=== PATIENT | female | born 1935 | race Caucasian/White ===

== ENCOUNTER 2016-08-11 14:43 | Emergency (ER) | payer OTHER ==
[2016-08-11] MEDS ORDERED: LABETALOL HCL INJ 20 MG/4 ML DISP.SYRIN IV ONE ×2 (15:06→15:11)
[2016-08-11 15:15] LABS: ABSOLUTE BASOPHILS # (AUTO) 0.1 10^3/uL (0.0-0.2); ABSOLUTE EOSINOPHILS # (AUTO) 0.1 10^3/uL (0.0-0.6); ABSOLUTE LYMPHOCYTES (AUTO) 1.8 10^3/uL (0.5-4.7); ABSOLUTE MONOCYTES (AUTO) 0.6 10^3/uL (0.1-1.4); ABSOLUTE NEUT (AUTO) 6.1 10^3/uL (1.7-8.2); BASOPHILS % (AUTO) 0.9 % (0-2); EOSINOPHILS % (AUTO) 1.4 % (0-6); HEMATOCRIT 44.4 % (36.0-47.0); HEMOGLOBIN 14.7 g/dL (12.0-15.5); HGB HCT DIFFERENCE -0.3; LYMPHOCYTES % (AUTO) 20.7 % (13-45); MEAN CORPUSCULAR HEMOGLOBIN 28.7 pg (27.0-33.4); MEAN CORPUSCULAR HGB CONC 33.1 g/dL (32.0-36.0); MEAN CORPUSCULAR VOLUME 87 fl (80-97); MONOCYTES % (AUTO) 7.1 % (3-13); RED BLOOD COUNT 5.11 10^6/uL (3.72-5.28); RED CELL DISTRIBUTION WIDTH 14.6 % (11.5-14.0); SEGMENTED NEUTROPHILS % (AUTO) 69.9 % (42-78); WHITE BLOOD COUNT 8.7 10^3/uL (4.0-10.5)
[2016-08-11] MEDS ORDERED: LABETALOL HCL INJ 200 MG/40 ML VIAL IV PRN (15:20)
[2016-08-11 15:21] LABS: PROTHROMBIN TIME 12.1 SEC (11.4-15.4)
[2016-08-11 15:22] LABS: PARTIAL THROMBOPLASTIN TIME 30.9 SEC (23.5-35.8)
[2016-08-11 15:36] LABS: ALANINE AMINOTRANSFERASE 25 U/L (9-52); ALBUMIN 4.9 g/dL (3.5-5.0); ALKALINE PHOSPHATASE 87 U/L (38-126); ANION GAP 12 (5-19); ASPARTATE AMINO TRANSFERASE 25 U/L (14-36); BILIRUBIN,TOTAL 0.6 mg/dL (0.2-1.3); BLOOD UREA NITROGEN 28 mg/dL (7-20); CALCIUM 10.2 mg/dL (8.4-10.2); CARBON DIOXIDE 30 mmol/L (22-30); CHLORIDE 102 mmol/L (98-107); CREATINE KINASE 59 U/L (30-135); CREATININE RESULT 0.96 mg/dL (0.52-1.25); GLUCOSE 106 mg/dL (75-110); POTASSIUM 4.4 mmol/L (3.6-5.0); SODIUM 144.1 mmol/L (137-145); TOTAL PROTEIN 7.5 g/dL (6.3-8.2)
[2016-08-11] MEDS ORDERED: LABETALOL HCL INJ 200 MG/40 ML VIAL IV ONE (15:37)
[2016-08-11 15:48] LABS: CREATINE KINASE MB 1.76 ng/mL (<4.55); TROPONIN I 0.015 ng/mL
--- NOTE | 2016-08-11 15:50 | ER Document Report ---
ED General - General Stated Complaint: WEAKNESS Time seen by provider: 15:45 Mode of Arrival: Medic Information source: Emergency Med Personnel Notes: This is an 80-year-old female with a past history of hypertension, COPD, coronary artery disease (2 stents in the past). The patient has a history of a recent workup for Parkinson's but is not on any medicines currently for that. The patient lives alone, walks without difficulty and still drives. Family states that his she is normally alert and oriented 3 and very functional. The patient was brought in for an acute stroke. The patient's aunt reportedly spoke to the patient at noon and reports that the conversation was normal and the plan to go out. When the aunt head showed up at the patient's house, she noticed that the patient was not able to talk and look like she had a facial droop. They did call the ambulance at that time and EMS found the patient to be hypertensive (221/112), aphasic. Medicines: Misalamine 1.2 g with meals Vitamin B, vitamin K Low-dose aspirin Metoprolol 50 mg twice a day Valsartan 160 mg 3 times a day Amlodipine 5 mg daily Crestor gabapentin 300 mg twice a day Calcitrol 0.25 3 times a day Citalopram Cyclosporine eyedrops TRAVEL OUTSIDE OF THE [place] IN LAST 30 DAYS: No - HPI Onset: Just prior to arrival Onset/Duration: Sudden Quality of pain: No pain Severity: None Pain Level: Denies Associated symptoms: denies: Chills, Fever Exacerbated by: Denies Relieved by: Denies Similar symptoms previously: No Recently seen / treated by doctor: Yes - Related Data Allergies/Adverse Reactions: prednisone [Prednisone] Allergy (Unknown, Verified 01/15/16 20:44) cephalexin [Cephalexin] Allergy (Verified 01/15/16 20:44) Cephalosporins Allergy (Verified 02/09/16 14:47) ciprofloxacin [From Cipro] Allergy (Verified 01/15/16 20:44) cortisone [Cortisone] Allergy (Verified 01/15/16 20:44) Penicillins Allergy (Verified 02/09/16 14:47) phenazopyridine [Phenazopyridine] Allergy (Verified 01/15/16 20:44) sulfamethoxazole [From Bactrim] Allergy (Verified 01/15/16 20:44) tramadol HCl [From Ultram] Allergy (Verified 01/15/16 20:44) trimethoprim [From Bactrim] Allergy (Verified 01/15/16 20:44) Past Medical History - General Information source: Patient - Social History Smoking Status: Smoker,Current Status Unk Chew tobacco use (# tins/day): No Smoking Education Provided: No Frequency of alcohol use: None Drug Abuse: None Lives with: Alone Family History: Reviewed & Not Pertinent, DM, Hypertension Patient has suicidal ideation: No Patient has homicidal ideation: No - Past Medical History Cardiac Medical History: Reports: Hx Heart Attack - 10/2014, Hx Hypercholesterolemia, Hx Hypertension Pulmonary Medical History: Reports: Hx Asthma, Hx COPD Malignancy Medical History: Reports: Hx Skin Cancer GI Medical History: Reports: Hx Crohn's Disease, Hx Gastroesophageal Reflux Disease, Hx Hiatal Hernia, Hx Ulcer, Hx Ulcerative Colitis Musculoskeltal Medical History: Reports Hx Arthritis Psychiatric Medical History: Reports: Hx Depression Past Surgical History: Reports: Hx Abdominal Surgery - umbilical hernia, Hx Cardiac Catheterization - stent x 2, Hx Cardiac Surgery - Stent, Hx Coronary Stent - Immunizations Hx Diphtheria, Pertussis, Tetanus Vaccination: Yes Hx Pneumococcal Vaccination: 07/08/11 Review of Systems - Review of Systems Constitutional: denies: See HPI, Fever EENT: No symptoms reported Cardiovascular: No symptoms reported Respiratory: No symptoms reported Gastrointestinal: No symptoms reported Genitourinary: No symptoms reported Female Genitourinary: No symptoms reported Musculoskeletal: No symptoms reported Skin: No symptoms reported Hematologic/Lymphatic: No symptoms reported Neurological/Psychological: See HPI Physical Exam - Vital signs Vitals: Pulse Ox 94 08/11/16 14:58 Notes: Physical exam: GENERAL: 80-year-old female, alert, eyes open, no acute distress. She is a phasic. He shouldn't is noted to be hypertensive. HEAD: Atraumatic, normocephalic. EYES: Pupils equal round and reactive to light, extraocular movements intact, sclera anicteric, conjunctiva are normal. ENT: TMs normal, nares patent, oropharynx clear without exudates. Moist mucous membranes. NECK: Normal range of motion, supple without lymphadenopathy or JVD. LUNGS: Breath sounds clear to auscultation bilaterally and equal. No wheezes rales or rhonchi. HEART: Regular rate and rhythm without murmurs, rubs or gallops. ABDOMEN: Soft, normoactive bowel sounds. No tenderness to palpation. No guarding, no rebound. No masses appreciated. EXTREMITIES: Normal range of motion, no pitting or edema. No clubbing or cyanosis. NEUROLOGICAL: Patient is sitting up in the stretcher with her eyes open. She does appear to be alert and clean keenly responsive. She is not able to answer any questions, she can open and close her eyes but is unable to open and close her fists, she appears to have normal gaze, visual field exam does not show any obvious defects using "visual threat". Patient may have a mild right-sided facial palsy , no significant motor arm drift to either side, finger to nose difficult to complete) the patient does have some amount of of receptive aphasia, no obvious sensory loss, patient is mute, severe dysarthria, no extinction. NIH score is 10 PSYCH: Normal mood, normal affect. SKIN: Warm, Dry, normal turgor, no rashes or lesions noted. Course - Re-evaluation Re-evalutation: 08/11/16 15:59 Note: The patient's head CT shows no evidence of acute bleed. Her NIH score is 10 and the absence of hemiparesis suggests a more distal thrombotic lesion. She does have complete aphasia at this point (components of both expressive and septa of a aphasia). I've discussed the case with the neurologist and ICU attendings at [facility] and they recommended attempting thrombolytics if we could get the blood pressure below 185/110. Patient has responded to IV labetalol (given 20 mg twice) but the effects of been transient and her blood pressure rebounds about this zone. I have started her on a labetalol drip. We will attempt thrombolytics if we can control her blood pressure. She will be flown to [place]. I've had an extensive conversation with the patient's sons as well as other people from the family in the room. In summary, the patient has not quite made criteria for thrombolytics because of her blood pressure. We are attempting to control the blood pressure with IV labetalol. 08/11/16 18:10 At the time of their medical arrival: Patient's blood pressure still be and 185 systolic. I've explained the plan to the air transport personnel. We have held off on thrombolytics because of the uncontrolled blood pressure. Patient is being transported to [place]. She is currently on an IV labetalol drip. 08/11/16 18:12 - Vital Signs Vital signs: Temp Pulse Resp BP Pulse Ox 99 22 H 194/87 H 96 08/11/16 15:06 08/11/16 16:04 08/11/16 16:04 08/11/16 16:04 - Laboratory Result Diagrams: 08/11/16 15:03 08/11/16 15:03 Laboratory results interpreted by me: 08/11/16 08/11/16 15:03 15:03 RDW 14.6 H BUN 28 H Est GFR (Non-Af Amer) 56 L - Diagnostic Test Radiology reviewed: Image reviewed, Reports reviewed - CT shows no acute bleed - EKG Interpretation by Me Rate: Normal Rhythm: NSR - EKG shows normal sinus rhythm with a ventricular rate of 85, LVH. Critical Care Note - Critical Care Note Total time excluding time spent on procedures (mins): 60 Discharge - Discharge Clinical Impression: acute CVA, accelerated hypertension Condition: Serious Disposition: [facility]
[2016-08-11] MEDS ORDERED: LORAZEPAM INJ 2 MG/1 ML VIAL IV ONE (15:58)
[2016-08-11 16:36] VITALS: BP 194/87
--- NOTE | 2016-08-11 22:14 | EKG REPORT ---
SEVERITY:- ABNORMAL ECG - SINUS RHYTHM NONSPECIFIC INTRAVENTRICULAR CONDUCTION DELAY PROBABLE LVH WITH SECONDARY REPOL ABNRM : Confirmed by: Eunice Servin 11-Aug-2016 22:13:18
== END 2016-08-11 16:00 | disposition short-term general hospital (02) ==
LOC: ER 14:43
DX: I63.9 Cerebral infarction, unspecified (principal); R47.01 Aphasia; R47.1 Dysarthria and anarthria; I10 Essential (primary) hypertension; I25.10 Atherosclerotic heart disease of native coronary artery without angina pectoris; J44.9 Chronic obstructive pulmonary disease, unspecified; E78.00 Pure hypercholesterolemia, unspecified; J45.909 Unspecified asthma, uncomplicated; K51.90 Ulcerative colitis, unspecified, without complications; F32.9 Major depressive disorder, single episode, unspecified; Z85.828 Personal history of other malignant neoplasm of skin; Z79.899 Other long term (current) drug therapy; Z79.82 Long term (current) use of aspirin; Z98.61 Coronary angioplasty status
CPT/HCPCS: 93005; 96376; 99291; 96374; 96375; 36415; 82553; 82962; 82550; 85025; 85610; 85730; 80053; 84484; 71010; 70450; 93010; J3490 ×2; J2060

== ENCOUNTER 2016-08-26 10:59 | Emergency (ER) | payer OTHER ==
--- NOTE | 2016-08-26 11:30 | ER Document Report ---
ED GI/ - General Chief Complaint: Vomiting Stated Complaint: VOMITING BLOOD Mode of Arrival: Medic Information source: Patient, Relative, Emergency Med Personnel TRAVEL OUTSIDE OF THE [place] IN LAST 30 DAYS: No - HPI Patient complains to provider of: Abdominal pain, Vomiting Onset: This morning Timing/Duration: Sudden Quality of pain: Dull Severity at maximum: Moderate Severity in ED: Mild Context: Other - RECENT CVA. denies: Bad food, Lifting, Out of the country travel, , Recent trauma Location: Epigastric Vaginal bleeding (Compared to normal period): None Associated symptoms: Blood in emesis - EMESIS DISCOLORED, BUT PATIENT DOUBTS IT' S BLOOD, MORE LIKELY UNDIGESTED FRUIT JUICE., Nausea, Vomiting. denies: Blood in stool, Chest pain, Chills, Coffee ground emesis, Constipation, Diarrhea, Dysuria, Fever, Hematuria Exacerbated by: Denies Relieved by: Denies Similar symptoms previously: Yes - NIGHT[facility]. Recently seen / treated by doctor: Yes - REHAB - Related Data Allergies/Adverse Reactions: prednisone [Prednisone] Allergy (Unknown, Verified 01/15/16 20:44) cephalexin [Cephalexin] Allergy (Verified 01/15/16 20:44) Cephalosporins Allergy (Verified 02/09/16 14:47) ciprofloxacin [From Cipro] Allergy (Verified 01/15/16 20:44) cortisone [Cortisone] Allergy (Verified 01/15/16 20:44) Penicillins Allergy (Verified 02/09/16 14:47) phenazopyridine [Phenazopyridine] Allergy (Verified 01/15/16 20:44) sulfamethoxazole [From Bactrim] Allergy (Verified 01/15/16 20:44) tramadol HCl [From Ultram] Allergy (Verified 01/15/16 20:44) trimethoprim [From Bactrim] Allergy (Verified 01/15/16 20:44) Home Medications: Current Home Medications Albuterol Sulfate [Albuterol Sulfate 2.5mg/3 mL] 1 vial NEB Q4 08/26/16 [History ] Aspirin [Adult Low Dose Aspirin EC] 1 tab PO DAILY 08/26/16 [History] Atorvastatin Calcium 1 tab PO DAILY 08/26/16 [History] Budesonide/Formoterol Fumarate [Symbicort HFA 160-4.5 mcg Inhaler 6 gm] 2 puff IN BID 08/26/16 [History] Citalopram Hydrobromide [Citalopram HBr] 1 tab PO DAILY 08/26/16 [History] Citalopram Hydrobromide [Citalopram HBr] 1 tab PO DAILY 08/26/16 [History] Cyclosporine [Restasis Droperette] 1 drop GT BID 08/26/16 [History] Mesalamine [Delzicol] 2 cap PO BID 08/26/16 [History] Metoprolol Tartrate 0.5 tab PO DAILY 08/26/16 [History] Nitroglycerin 1 tab SL PRN PRN 08/26/16 [History] Tiotropium [place] [Spiriva Handihaler 18 mcg/dose (30 Dose)] 1 puff IN DAILY [History] Valsartan 1 tab PO BID 08/26/16 [History] Past Medical History - General Information source: Patient, Relative - Social History Smoking Status: Unknown if Ever Smoked Cigarette use (# per day): No Chew tobacco use (# tins/day): No Frequency of alcohol use: None Drug Abuse: None Lives with: Family Family History: DM, Hypertension - Past Medical History Cardiac Medical History: Reports: Hx Heart Attack - 10/2014, Hx Hypercholesterolemia, Hx Hypertension Pulmonary Medical History: Reports: Hx Asthma, Hx COPD Neurological Medical History: Reports: Hx Cerebrovascular Accident Endocrine Medical History: Reports: None Renal/ Medical History: Reports: None Malignancy Medical History: Reports: Hx Skin Cancer GI Medical History: Reports: Hx Crohn's Disease, Hx Gastroesophageal Reflux Disease, Hx Hiatal Hernia, Hx Ulcer, Hx Ulcerative Colitis Musculoskeltal Medical History: Reports Hx Arthritis Psychiatric Medical History: Reports: Hx Depression Past Surgical History: Reports: Hx Abdominal Surgery - umbilical hernia, Hx Cardiac Catheterization - stent x 2, Hx Cardiac Surgery - Stent, Hx Coronary Stent - Immunizations Hx Diphtheria, Pertussis, Tetanus Vaccination: Yes Hx Pneumococcal Vaccination: 07/08/11 Review of Systems - Review of Systems Constitutional: No symptoms reported. denies: Chills, Fever EENT: No symptoms reported Cardiovascular: No symptoms reported Respiratory: No symptoms reported Gastrointestinal: See HPI Genitourinary: No symptoms reported Female Genitourinary: Post menopausal Musculoskeletal: No symptoms reported Skin: No symptoms reported Neurological/Psychological: Weakness, Speech impairment Physical Exam - Vital signs Vitals: Temp Pulse Resp BP Pulse Ox 97.9 F 80 15 194/86 H 99 08/26/16 11:10 08/26/16 11:10 08/26/16 11:10 08/26/16 11:10 08/26/16 11:10 Interpretation: Hypertensive. No: Tachycardic, Tachypneic, Febrile - General General appearance: Appears well, Alert In distress: None - HEENT Head: Normocephalic Eyes: Normal Conjunctiva: Normal Ears: Normal Nasal: Normal Mouth/Lips: Normal Mucous membranes: Normal Pharynx: Normal Neck: Normal - Respiratory Respiratory status: No respiratory distress Breath sounds: Normal - Cardiovascular Rhythm: Regular Heart sounds: Normal auscultation Murmur: No - Abdominal Inspection: Normal Distension: No distension Bowel sounds: Normal Tenderness: Tender - SLIGHT, E.G. - Back Back: Normal - Extremities General upper extremity: Normal inspection General lower extremity: Normal inspection - Neurological Neuro grossly intact: Yes Cognition: Normal Orientation: AAOx4 - Psychological Associated symptoms: Normal affect, Normal mood - Skin Skin Temperature: Warm Skin Moisture: Dry Skin Color: Normal Skin Turgor: Elastic Course - Re-evaluation Re-evalutation: 08/26/16 13:31 Patient states she feels about the same. Wants to go home. Results of laboratory and radiographic studies discussed with patient and family. Will treat patient symptomatically. Encouraged patient and family to return if any worsening at any time. - Vital Signs Vital signs: Temp Pulse Resp BP Pulse Ox 97.9 F 80 20 194/86 H 100 08/26/16 11:10 08/26/16 11:10 08/26/16 11:20 08/26/16 11:10 08/26/16 11:20 - Laboratory Result Diagrams: 08/26/16 11:20 08/26/16 11:20 Laboratory results interpreted by me: 08/26/16 08/26/16 08/26/16 11:20 11:20 11:45 Hgb 11.7 L Hct 35.5 L RDW 14.1 H Seg Neutrophils % 80.4 H Lymphocytes % 11.1 L Carbon Dioxide 32 H BUN 21 H Total Protein 6.0 L Albumin 3.4 L Urine Protein 30 H - Diagnostic Test Radiology reviewed: Image reviewed, Reports reviewed - EKG Interpretation by Me EKG shows normal: Sinus rhythm. abnormal: ST-T Waves - CHANGES DUE TO LVH Rhythm: APC's Voltage: Consistant with LVH When compared to previous EKG there are: No significant change Discharge - Discharge Clinical Impression: Nausea & vomiting Qualifiers: Vomiting type: unspecified Vomiting Intractability: non-intractable Qualified Code(s): R11.2 - Nausea with vomiting, unspecified Condition: Stable Disposition: HOME, SELF-CARE Instructions: Antinausea Medication ([facility]), Vomiting ([facility]) Additional Instructions: TAKE ZOFRAN IF NEEDED FOR NAUSEA CONTROL. CONTINUE ALL OTHER MEDS USUAL. FOLLOW UP SCHEDULED. RETURN TO E.R. IF YOU GET WORSE IN ANY WAY, ANY TIME. Prescriptions: Ondansetron [Zofran Odt 4 mg Tablet] 1 - 2 tab PO Q4H #10 [email or web address] Referrals: RACHEL MEDRANO FNP [Primary Care Provider] - Follow up as needed
[2016-08-26 12:19] LABS: APPEARANCE,URINE CLEAR; BILIRUBIN,URINE NEGATIVE (NEGATIVE); GLUCOSE, URINE NEGATIVE (NEGATIVE); KETONES,URINE NEGATIVE (NEGATIVE); LEUKOCYTE ESTERASE,URINE NEGATIVE (NEGATIVE); NITRITE,URINE NEGATIVE (NEGATIVE); PROTEIN,URINE 30 mg/dL (NEGATIVE); URINE SPECIFIC GRAVITY 1.009; UROBILINOGEN,URINE NEGATIVE mg/dL (<2.0)
[2016-08-26 12:44] LABS: ABSOLUTE LYMPHOCYTES (AUTO) 0.7 10^3/uL (0.5-4.7); ABSOLUTE MONOCYTES (AUTO) 0.5 10^3/uL (0.1-1.4); ABSOLUTE NEUT (AUTO) 5.4 10^3/uL (1.7-8.2); BASOPHILS % (AUTO) 0.5 % (0-2); EOSINOPHILS % (AUTO) 0.5 % (0-6); HEMATOCRIT 35.5 % (36.0-47.0); HEMOGLOBIN 11.7 g/dL (12.0-15.5); HGB HCT DIFFERENCE -0.4; LYMPHOCYTES % (AUTO) 11.1 % (13-45); MEAN CORPUSCULAR HEMOGLOBIN 28.8 pg (27.0-33.4); MEAN CORPUSCULAR VOLUME 87 fl (80-97); MONOCYTES % (AUTO) 7.5 % (3-13); RED BLOOD COUNT 4.07 10^6/uL (3.72-5.28); RED CELL DISTRIBUTION WIDTH 14.1 % (11.5-14.0); SEGMENTED NEUTROPHILS % (AUTO) 80.4 % (42-78); WHITE BLOOD COUNT 6.7 10^3/uL (4.0-10.5)
[2016-08-26 12:50] LABS: ALANINE AMINOTRANSFERASE 32 U/L (9-52); ALBUMIN 3.4 g/dL (3.5-5.0); ALKALINE PHOSPHATASE 58 U/L (38-126); ANION GAP 7 (5-19); ASPARTATE AMINO TRANSFERASE 24 U/L (14-36); BILIRUBIN,TOTAL 0.5 mg/dL (0.2-1.3); BLOOD UREA NITROGEN 21 mg/dL (7-20); CALCIUM 9.6 mg/dL (8.4-10.2); CARBON DIOXIDE 32 mmol/L (22-30); CHLORIDE 101 mmol/L (98-107); CREATININE RESULT 0.78 mg/dL (0.52-1.25); GLUCOSE 98 mg/dL (75-110); LIPASE 82.5 U/L (23-300); POTASSIUM 4.5 mmol/L (3.6-5.0); SODIUM 139.6 mmol/L (137-145)
[2016-08-26] MEDS ORDERED: ONDANSETRON 4 MG TAB.RAPDIS PO ONE (13:13)
[2016-08-26 13:47] VITALS: BP 188/89
--- NOTE | 2016-08-26 22:01 | EKG REPORT ---
SEVERITY:- ABNORMAL ECG - SINUS RHYTHM ATRIAL PREMATURE COMPLEX LVH WITH SECONDARY REPOLARIZATION ABNORMALITY ANTERIOR ST ELEVATION, PROBABLY DUE TO LVH : Confirmed by: Eunice Servin 26-Aug-2016 21:59:50
== END 2016-08-26 13:45 | disposition home or self-care (01) ==
LOC: ER 10:59
DX: R11.2 Nausea with vomiting, unspecified (principal); K92.0 Hematemesis; R10.9 Unspecified abdominal pain; Z79.899 Other long term (current) drug therapy
CPT/HCPCS: 93005; 99284; 36415; 83690; 85025; 80053; 81001; 74022; 93010; A9270; S0119

== ENCOUNTER 2016-09-03 17:27 | Emergency (ER) | payer OTHER ==
[2016-09-03] MEDS ORDERED: ONDANSETRON HCL INJ/PF 4 MG/2 ML SDV IV ONE (18:34)
--- NOTE | 2016-09-03 18:34 | ER Document Report ---
ED General <BERNARDO ARIAS - Last Filed: 09/03/16 21:33> - General Mode of Arrival: Medic Information source: Patient, Relative TRAVEL OUTSIDE OF THE [place] 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 Patient reports that she sat down after the onset of the dizziness and states that sitting upright or standing up exacerbates her symptoms. Patient also complains of nausea at bedside. Family reports that the speech changes is the only neurological change since having the stroke. Family reports that the patient is slowly becoming more ambulatory, but is able to perform all tasks prior to the stroke at a slower pace. Patient's family states that the patient was ambulatory today while at physical therapy. Patient denies a fall and double or blurry vision, but states that she is nauseous. Patient was sent to [facility] secondary to the stroke where she was started on Lovenox. Patient's hypertensive medications were changed while at [facility]. 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 Patient is currently on aspirin. (MALI COPE) - Related Data Allergies/Adverse Reactions: prednisone [Prednisone] Allergy (Unknown, Verified 01/15/16 20:44) cephalexin [Cephalexin] Allergy (Verified 01/15/16 20:44) Cephalosporins Allergy (Verified 02/09/16 14:47) ciprofloxacin [From Cipro] Allergy (Verified 01/15/16 20:44) cortisone [Cortisone] Allergy (Verified 01/15/16 20:44) Penicillins Allergy (Verified 02/09/16 14:47) phenazopyridine [Phenazopyridine] Allergy (Verified 01/15/16 20:44) sulfamethoxazole [From Bactrim] Allergy (Verified 01/15/16 20:44) tramadol HCl [From Ultram] Allergy (Verified 01/15/16 20:44) trimethoprim [From Bactrim] Allergy (Verified 01/15/16 20:44) Past Medical History - General Information source: Patient, Relative - Social History Smoking Status: Current Every Day Smoker Family History: DM, Hypertension - Past Medical History Cardiac Medical History: Reports: Hx Heart Attack - 10/2014, Hx Hypercholesterolemia, Hx Hypertension Pulmonary Medical History: Reports: Hx Asthma, Hx COPD, Hx Pneumonia Neurological Medical History: Reports: 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 Renal/ Medical History: Denies: Hx Peritoneal Dialysis Malignancy Medical History: Reports: Hx Skin Cancer GI Medical History: Reports: Hx Crohn's Disease, Hx Gastroesophageal Reflux Disease, Hx Hiatal Hernia, Hx Ulcer, Hx Ulcerative Colitis Musculoskeltal Medical History: Reports Hx Arthritis Psychiatric Medical History: Reports: Hx Depression Past Surgical History: Reports: Hx Abdominal Surgery - umbilical hernia, Hx Cardiac Catheterization - stent x 2, Hx Cardiac Surgery - Stent, Hx Coronary Stent - Immunizations Hx Diphtheria, Pertussis, Tetanus Vaccination: Yes Hx Pneumococcal Vaccination: 07/08/11 <MALI COPE - Last Filed: 09/03/16 23:48> Review of Systems - Review of Systems Constitutional: No symptoms reported EENT: No symptoms reported. denies: Blurred vision, Double vision Cardiovascular: See HPI, Dizziness Respiratory: No symptoms reported Gastrointestinal: See HPI, Nausea Genitourinary: No symptoms reported Female Genitourinary: No symptoms reported Musculoskeletal: No symptoms reported Skin: No symptoms reported Hematologic/Lymphatic: No symptoms reported Neurological/Psychological: See HPI, Headaches - "pressure" -: Yes All other systems reviewed and negative <MALI COPE - Last Filed: 09/03/16 23:48> Physical Exam - General General appearance: Alert In distress: None - HEENT Head: Normocephalic, Atraumatic Eyes: Normal Extraocular movements intact: Yes Pupils: PERRL Neck: Normal. No: Carotid bruit - Respiratory Respiratory status: No respiratory distress Breath sounds: Normal - Cardiovascular Rhythm: Regular Heart sounds: Normal auscultation - Abdominal Inspection: Normal - Back Back: Normal - Extremities General upper extremity: Normal inspection, Normal ROM General lower extremity: Normal inspection, Normal ROM, Normal weight bearing - Neurological Neuro grossly intact: Yes Cognition: Normal Orientation: AAOx4 [place] Coma Scale Eye Opening: Spontaneous Tiny Coma Scale Verbal: Oriented [place] Coma Scale Motor: Obeys Commands Tiny Coma Scale Total: 15 Speech: Other - Speech deficit since having stroke on 08/11/2016. This deficit is not new.. No: Normal Cranial nerves: Other - No facial droop. 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, Other - Patient is ambulatory - Psychological Associated symptoms: Normal affect, Normal mood - Skin Skin Temperature: Warm Skin Moisture: Dry Skin Color: Normal <MALI COPE - Last Filed: 09/03/16 23:48> - Vital signs Vitals: Temp Pulse Resp BP Pulse Ox 98.3 F 57 L 20 159/51 H 96 09/03/16 17:48 09/03/16 17:48 09/03/16 17:48 09/03/16 17:48 09/03/16 17:48 (BERNARDO ARIAS) Course - Laboratory Result Diagrams: 09/03/16 18:45 09/03/16 18:45 <BERNARDO AIRAS - Last Filed: 09/03/16 21:33> - Laboratory Result Diagrams: 09/03/16 18:45 09/03/16 18:45 <MALI COPE - Last Filed: 09/03/16 23:48> - Vital Signs Vital signs: Temp Pulse Resp BP Pulse Ox 98.3 F 88 20 163/93 H 97 09/03/16 17:48 09/03/16 21:52 09/03/16 21:52 09/03/16 21:52 09/03/16 21:52 (BERNARDO ARIAS) (MALI COPE) - Laboratory Laboratory results interpreted by me: 09/03/16 09/03/16 09/03/16 18:45 18:45 18:45 RBC 3.70 L Hgb 10.7 L Hct 31.6 L BUN 21 H NT-Pro-B Natriuret Pep 4480 H Urine Protein Ur Leukocyte Esterase 09/03/16 21:00 RBC Hgb Hct BUN NT-Pro-B Natriuret Pep Urine Protein 30 H Ur Leukocyte Esterase SMALL H (BERNARDO ARIAS) - EKG Interpretation by Me Additional EKG results interpreted by me: 09/03/16 21:33 EKG shows sinus rhythm at 61 bpm nonspecific IVCD no acute ST segment elevation or depression (BERNARDO ARIAS) Discharge <BERNARDO ARIAS - Last Filed: 09/03/16 21:33> <MALI COPE - Last Filed: 09/03/16 23:48> - Discharge Clinical Impression: dizziness s/p ischemic cva, Elevated blood pressure reading Condition: Stable Disposition: HOME, SELF-CARE Additional Instructions: Dizziness and blood pressure concerns Under normal circumstances, your sense of balance is controlled by a number of signals that your brain receives from several locations: Eyes. No matter what your position, visual signals help you determine where your body is in space and how it's moving. Sensory nerves. These are in your skin, muscles and joints. Sensory nerves send messages to your brain about body movements and positions. Inner ear. The organ of balance in your inner ear is the vestibular labyrinth. It includes loop-shaped structures (semicircular canals) that contain fluid and fine, hair-like sensors that monitor the rotation of your head. Near the semicircular canals are the utricle and saccule, which contain tiny particles called otoconia ([id number]). These particles are attached to sensors that help detect gravity and [id number]-[id number]-[id number] motion. Good balance depends on at least two of these three sensory systems working well. For instance, closing your eyes while washing your hair in the shower doesn't mean you'll lose your balance. Signals from your inner ear and sensory nerves help keep you upright. However, if your central nervous system can't process signals from all of these locations, if the messages are contradictory, or if the sensory systems aren't functioning properly, you may experience loss of balance. Dizziness may have a number of potential causes. These may include: Feeling of faintness (presyncope) "Presyncope" is the medical term for feeling faint and lightheaded without losing consciousness. Sometimes nausea, pale skin and a sense of dizziness accompany a feeling of faintness. Causes of presyncope include: Drop in blood pressure (orthostatic hypotension). A dramatic drop in your systolic blood pressure - the higher number in your blood pressure reading - may result in lightheadedness or a feeling of faintness. It can occur after sitting up or standing too quickly. Inadequate output of blood from the heart. Conditions such as partially blocked arteries (atherosclerosis), disease of the heart muscle (cardiomyopathy) , abnormal heart rhythm (arrhythmia) or a decrease in blood volume may cause inadequate blood flow from your heart. Loss of balance (disequilibrium) Disequilibrium is the loss of balance or the feeling of unsteadiness when you walk. Causes may include: Inner ear (vestibular) problems. Abnormalities with your inner ear can cause you to feel like you are floating, have a heavy head or are unsteady in the dark. Sensory disorders. Failing vision and nerve damage in your legs (peripheral neuropathy) are common in older adultsand may result in difficulty maintaining your balance. Joint and muscle problems. Muscle weakness and osteoarthritis - the type of arthritis that involves wear and tear of your joints - can contribute to loss of balance when it involves your weight-bearing joints. Medications. Loss of balance can be a side effect of certain medications, such as anti-seizure drugs, sedatives and tranquilizers. Lightheadedness and other kinds of 'dizziness' Feeling lightheaded is the feeling of being "spaced out" or having the sensation of spinning inside your head. It can also give you the sensation that if your lightheadedness worsens, you might lose consciousness. Causes may include: Inner ear disorders. These abnormalities of your inner ear can lead to illusions of motion and make you feel like you're floating. Anxiety disorders. Certain anxiety disorders, such as panic attacks and a fear of leaving home or being in large, open spaces (agoraphobia), may cause lightheadedness. Hyperventilation. Abnormally rapid breathing that often accompanies anxiety disorders may make you feel lightheaded. You have had various blood pressures in the past 3 weeks since her stroke. Family states that your blood pressure medication has been altered as well I was able to look at a couple of your blood pressure readings but it would be very helpful if you're able take your blood pressure in the morning lunch evening before he go to bed I want you to see her family doctor tomorrow to have blood pressure requiring sublingual blood pressure cuff to make sure it accurately. Return for severe headache altered mental status increasing neurological deficit or any concerns despite the above treatment Referrals: RACHEL MEDRANO FNP [Primary Care Provider] - Follow up tomorrow (Return to the emergency department sooner for increasing worsening or new symptoms) Scribe Documentation - Scribe Written by Bradley:: Bradley Tillman, [id number] acting as scribe for :: Harlan <MALI COPE - Last Filed: 09/03/16 23:48>
[2016-09-03 18:59] LABS: ABSOLUTE LYMPHOCYTES (AUTO) 1.5 10^3/uL (0.5-4.7); ABSOLUTE MONOCYTES (AUTO) 0.4 10^3/uL (0.1-1.4); ABSOLUTE NEUT (AUTO) 5.4 10^3/uL (1.7-8.2); BASOPHILS % (AUTO) 0.6 % (0-2); EOSINOPHILS % (AUTO) 0.5 % (0-6); HEMATOCRIT 31.6 % (36.0-47.0); HEMOGLOBIN 10.7 g/dL (12.0-15.5); HGB HCT DIFFERENCE 0.5; LYMPHOCYTES % (AUTO) 20.8 % (13-45); MEAN CORPUSCULAR HEMOGLOBIN 28.9 pg (27.0-33.4); MEAN CORPUSCULAR HGB CONC 33.8 g/dL (32.0-36.0); MEAN CORPUSCULAR VOLUME 85 fl (80-97); MONOCYTES % (AUTO) 6.1 % (3-13); RED CELL DISTRIBUTION WIDTH 13.9 % (11.5-14.0); WHITE BLOOD COUNT 7.4 10^3/uL (4.0-10.5)
[2016-09-03 19:21] LABS: ANION GAP 8 (5-19); BLOOD UREA NITROGEN 21 mg/dL (7-20); CARBON DIOXIDE 30 mmol/L (22-30); CHLORIDE 102 mmol/L (98-107); CREATINE KINASE 33 U/L (30-135); CREATININE RESULT 0.76 mg/dL (0.52-1.25); GLUCOSE 88 mg/dL (75-110); POTASSIUM 4.1 mmol/L (3.6-5.0); SODIUM 140.2 mmol/L (137-145)
[2016-09-03 19:33] LABS: TROPONIN I < 0.012 ng/mL
--- NOTE | 2016-09-03 21:04 | EKG REPORT ---
SEVERITY:- ABNORMAL ECG - SINUS RHYTHM ATRIAL PREMATURE COMPLEX NONSPECIFIC INTRAVENTRICULAR CONDUCTION DELAY PROBABLE LVH WITH SECONDARY REPOL ABNRM : Confirmed by: Saurabh Monroe MD 03-Sep-2016 21:04:22
[2016-09-03 21:13] LABS: APPEARANCE,URINE CLEAR; BILIRUBIN,URINE NEGATIVE (NEGATIVE); GLUCOSE, URINE NEGATIVE (NEGATIVE); KETONES,URINE NEGATIVE (NEGATIVE); LEUKOCYTE ESTERASE,URINE SMALL (NEGATIVE); NITRITE,URINE NEGATIVE (NEGATIVE); PROTEIN,URINE 30 mg/dL (NEGATIVE); URINE SPECIFIC GRAVITY 1.009; UROBILINOGEN,URINE NEGATIVE mg/dL (<2.0)
[2016-09-03 21:53] VITALS: BP 163/93
== END 2016-09-03 21:52 | disposition home or self-care (01) ==
LOC: ER 17:27
DX: R42 Dizziness and giddiness (principal); I10 Essential (primary) hypertension; I25.10 Atherosclerotic heart disease of native coronary artery without angina pectoris; K50.90 Crohn's disease, unspecified, without complications; Z79.899 Other long term (current) drug therapy; F17.210 Nicotine dependence, cigarettes, uncomplicated
CPT/HCPCS: 93005; 99285; 36415; 87086; 82550; 85025; 80048; 81001; 84484; 83880; 71010; 70450; 93010; J2405

== ENCOUNTER 2016-10-06 12:10 | Emergency (ER) | payer OTHER ==
--- NOTE | 2016-10-06 12:43 | ER Document Report ---
ED Extremity Problem, Upper - General Time seen by provider: 12:45 Mode of Arrival: Medic Information source: Patient, Emergency Med Personnel TRAVEL OUTSIDE OF THE [place] IN LAST 30 DAYS: No - HPI Patient complains to provider of: Pain, Shoulder Associated symptoms: Other - See above <DIEGO DEJESUS - Last Filed: 10/06/16 12:31> <PRAVEEN REYES - Last Filed: 10/06/16 15:54> - General Chief Complaint: Shoulder Pain Stated Complaint: SHOULDER PAIN Notes: Patient is an 80 year old female, with a past medical history including CVA and CAD, who presents to the emergency department via EMS complaining of bilateral shoulder pain. Patient states that she woke up with achy shoulders around 0930 and then en route to this facility she started feeling as though her left jaw and face were swelling, denies any pain to the area. Patient states that "something ain't right." Per son at bedside, patient's Lasix was increased last week and patient reports she did not take it as usual this morning. PCP: Dr. Kay (DIEGO DEJESUS) - Related Data Allergies/Adverse Reactions: prednisone [Prednisone] Allergy (Unknown, Verified 01/15/16 20:44) cephalexin [Cephalexin] Allergy (Verified 01/15/16 20:44) Cephalosporins Allergy (Verified 02/09/16 14:47) ciprofloxacin [From Cipro] Allergy (Verified 01/15/16 20:44) cortisone [Cortisone] Allergy (Verified 01/15/16 20:44) Penicillins Allergy (Verified 02/09/16 14:47) phenazopyridine [Phenazopyridine] Allergy (Verified 01/15/16 20:44) sulfamethoxazole [From Bactrim] Allergy (Verified 01/15/16 20:44) tramadol HCl [From Ultram] Allergy (Verified 01/15/16 20:44) trimethoprim [From Bactrim] Allergy (Verified 01/15/16 20:44) Past Medical History - General Information source: Patient - Social History Smoking Status: Current Every Day Smoker Lives with: Family - nephew Family History: Reviewed & Not Pertinent, DM, Hypertension - Past Medical History Cardiac Medical History: Reports: Hx Heart Attack - 10/2014, Hx Hypercholesterolemia, Hx Hypertension Pulmonary Medical History: Reports: Hx Asthma, Hx COPD, Hx Pneumonia Neurological Medical History: Reports: 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 , speech deficit Malignancy Medical History: Reports: Hx Skin Cancer GI Medical History: Reports: Hx Crohn's Disease, Hx Gastroesophageal Reflux Disease, Hx Hiatal Hernia, Hx Ulcer, Hx Ulcerative Colitis Musculoskeltal Medical History: Reports Hx Arthritis Psychiatric Medical History: Reports: Hx Depression Past Surgical History: Reports: Hx Abdominal Surgery - umbilical hernia, Hx Cardiac Catheterization - stent x 2, Hx Cardiac Surgery - Stent, Hx Coronary Stent - Immunizations Hx Diphtheria, Pertussis, Tetanus Vaccination: Yes Hx Pneumococcal Vaccination: 07/08/11 <DIEGO DEJESUS - Last Filed: 10/06/16 12:31> Review of Systems - Review of Systems Constitutional: No symptoms reported EENT: See HPI, Other - jaw swelling Cardiovascular: No symptoms reported Respiratory: No symptoms reported Gastrointestinal: No symptoms reported Genitourinary: No symptoms reported Female Genitourinary: No symptoms reported Musculoskeletal: See HPI, Joint pain - shoulders Skin: No symptoms reported Hematologic/Lymphatic: No symptoms reported Neurological/Psychological: No symptoms reported -: Yes All other systems reviewed and negative <DIEGO DEJESUS - Last Filed: 10/06/16 12:31> Physical Exam - Vital signs Interpretation: Normal - General General appearance: Appears well, Alert - HEENT Head: Other - [place] rash and erythema to face, no swelling - Respiratory Respiratory status: No respiratory distress Chest status: Nontender Breath sounds: Normal Chest palpation: Normal - Cardiovascular Rhythm: Regular Heart sounds: Normal auscultation Murmur: No - Abdominal Inspection: Normal Distension: No distension Bowel sounds: Normal Tenderness: Nontender Organomegaly: No organomegaly - Extremities General upper extremity: Normal inspection, Nontender General lower extremity: Normal inspection. No: Edema Shoulder: Nontender - Neurological Neuro grossly intact: Yes Cognition: Normal Orientation: AAOx4 [place] Coma Scale Eye Opening: Spontaneous Tiny Coma Scale Verbal: Oriented [place] Coma Scale Motor: Obeys Commands [place] Coma Scale Total: 15 - Psychological Associated symptoms: Normal affect, Normal mood - Skin Skin Temperature: Warm Skin Moisture: Dry <DIEGO DEJESUS - Last Filed: 10/06/16 12:31> Course <DIEGO DEJESUS - Last Filed: 10/06/16 12:31> - Laboratory Result Diagrams: 10/06/16 12:22 10/06/16 12:22 - EKG Interpretation by Me EKG shows normal: Sinus rhythm, [place], Intervals. abnormal: QRS Complexes, ST-T Waves - Lateral T-wave abnormalities Rate: Normal - 72 Rhythm: NSR, Arrthymia Voltage: Consistant with LVH <PRAVEEN REYES - Last Filed: 10/06/16 15:54> - Re-evaluation Re-evalutation: 10/06/16 15:52 After the IV Pepcid, the patient began to feel better with the erythema and her face clearing some and the sensation of swelling going away. At that time she also reported that earlier but didn't feel right about her head was that it was itching all over and that has improved. She did have a small pimple on her left cheek that was opened and cleaned out. (PRAVEEN REYES) - Vital Signs Vital signs: Temp Pulse Resp BP Pulse Ox 97.6 F 67 21 H 179/77 H 95 10/06/16 12:18 10/06/16 12:18 10/06/16 12:18 10/06/16 12:18 10/06/16 12:18 - Laboratory Laboratory results interpreted by me: 10/06/16 10/06/16 12:22 12:22 Hgb 11.4 L Hct 34.5 L RDW 16.2 H BUN 27 H Discharge <DIEGO DEJESUS - Last Filed: 10/06/16 12:31> <PRAVEEN REYES - Last Filed: 10/06/16 15:54> - Discharge Clinical Impression: Allergic reaction Qualifiers: Encounter type: initial encounter Qualified Code(s): T78.40XA - Allergy, unspecified, initial encounter Condition: Stable Disposition: HOME, SELF-CARE Additional Instructions: Most of your symptoms seem to be related to an allergic reaction. You should take Zantac 150 mg tablets for the itching. Take 1-2 tablets every 6 hours for itching if needed. Follow-up with your doctor if not improving. RETURN TO THE EMERGENCY ROOM IF ANY NEW OR WORSENING SYMPTOMS. Scribe Attestation: 10/06/16 15:54 I personally performed the services described in the documentation, reviewed and edited the documentation which was dictated to the scribe in my presence, and it accurately records my words and actions. (PRAVEEN REYES) Scribe Documentation - Scribe Written by Lizette:: lizette Nash, 10/06/16, 1251 acting as scribe for :: Zelda <DIEGO DEJESUS - Last Filed: 10/06/16 12:31>
[2016-10-06 13:17] LABS: APPEARANCE,URINE CLEAR; BILIRUBIN,URINE NEGATIVE (NEGATIVE); GLUCOSE, URINE NEGATIVE (NEGATIVE); KETONES,URINE NEGATIVE (NEGATIVE); LEUKOCYTE ESTERASE,URINE NEGATIVE (NEGATIVE); NITRITE,URINE NEGATIVE (NEGATIVE); PROTEIN,URINE NEGATIVE (NEGATIVE); URINE SPECIFIC GRAVITY 1.006; UROBILINOGEN,URINE NEGATIVE mg/dL (<2.0)
[2016-10-06 13:23] LABS: ABSOLUTE BASOPHILS # (AUTO) 0.1 10^3/uL (0.0-0.2); ABSOLUTE EOSINOPHILS # (AUTO) 0.1 10^3/uL (0.0-0.6); ABSOLUTE LYMPHOCYTES (AUTO) 1.4 10^3/uL (0.5-4.7); ABSOLUTE MONOCYTES (AUTO) 0.4 10^3/uL (0.1-1.4); ABSOLUTE NEUT (AUTO) 4.3 10^3/uL (1.7-8.2); EOSINOPHILS % (AUTO) 1.6 % (0-6); HEMATOCRIT 34.5 % (36.0-47.0); HEMOGLOBIN 11.4 g/dL (12.0-15.5); HGB HCT DIFFERENCE -0.3; MEAN CORPUSCULAR VOLUME 88 fl (80-97); MONOCYTES % (AUTO) 6.8 % (3-13); RED BLOOD COUNT 3.92 10^6/uL (3.72-5.28); RED CELL DISTRIBUTION WIDTH 16.2 % (11.5-14.0); SEGMENTED NEUTROPHILS % (AUTO) 68.6 % (42-78); WHITE BLOOD COUNT 6.3 10^3/uL (4.0-10.5)
[2016-10-06 13:29] LABS: ALANINE AMINOTRANSFERASE 28 U/L (9-52); ALBUMIN 3.8 g/dL (3.5-5.0); ALKALINE PHOSPHATASE 61 U/L (38-126); ANION GAP 12 (5-19); ASPARTATE AMINO TRANSFERASE 20 U/L (14-36); BILIRUBIN,DIRECT 0.3 mg/dL (0.0-0.4); BILIRUBIN,TOTAL 0.5 mg/dL (0.2-1.3); BLOOD UREA NITROGEN 27 mg/dL (7-20); CALCIUM 9.5 mg/dL (8.4-10.2); CARBON DIOXIDE 29 mmol/L (22-30); CHLORIDE 102 mmol/L (98-107); CREATINE KINASE 37 U/L (30-135); CREATININE RESULT 0.79 mg/dL (0.52-1.25); GLUCOSE 100 mg/dL (75-110); POTASSIUM 4.2 mmol/L (3.6-5.0); TOTAL PROTEIN 6.3 g/dL (6.3-8.2)
[2016-10-06 13:41] LABS: CREATINE KINASE MB 1.04 ng/mL (<4.55)
[2016-10-06 13:45] LABS: TROPONIN I < 0.012 ng/mL
[2016-10-06] MEDS ORDERED: FAMOTIDINE INJ/PF 20 MG/2 ML SDV IV ONE (14:27)
[2016-10-06 16:05] VITALS: BP 176/84
--- NOTE | 2016-10-07 00:13 | EKG REPORT ---
SEVERITY:- ABNORMAL ECG - SINUS ARRHYTHMIA, RATE 58-98 LEFT VENTRICULAR HYPERTROPHY ABNORMAL T, CONSIDER ISCHEMIA, LATERAL LEADS : Confirmed by: Eunice Servin 07-Oct-2016 00:11:53
== END 2016-10-06 16:01 | disposition home or self-care (01) ==
LOC: ER 12:10
DX: T78.40XA Allergy, unspecified, initial encounter (principal); X58.XXXA Exposure to other specified factors, initial encounter; M25.511 Pain in right shoulder; M25.512 Pain in left shoulder; R21 Rash and other nonspecific skin eruption; R23.8 Other skin changes; I25.2 Old myocardial infarction; I25.10 Atherosclerotic heart disease of native coronary artery without angina pectoris; T50.1X6A Underdosing of loop [high-ceiling] diuretics, initial encounter; J45.909 Unspecified asthma, uncomplicated; F17.200 Nicotine dependence, unspecified, uncomplicated; Z91.14 Patient's other noncompliance with medication regimen; Z79.899 Other long term (current) drug therapy; Z86.73 Personal history of transient ischemic attack (TIA), and cerebral infarction without residual deficits; Z88.8 Allergy status to other drugs, medicaments and biological substances; Z88.1 Allergy status to other antibiotic agents; Z88.0 Allergy status to penicillin; Z88.5 Allergy status to narcotic agent; Z85.828 Personal history of other malignant neoplasm of skin; Z98.61 Coronary angioplasty status
CPT/HCPCS: 93005; 99284; 96374; 36415; 82553; 82550; 85025; 80053; 81001; 84484; 71010; 93010; S0028

== ENCOUNTER 2016-10-15 19:36 | Inpatient (IN) | payer OTHER, MEDICARE ==
[2016-10-15] MEDS ORDERED: NORMAL SALINE 1000 ML 1,000 ML IV PRN (19:55)
--- NOTE | 2016-10-15 19:55 | ER Document Report ---
ED Fever - General Stated Complaint: CHILLS Time seen by provider: 19:55 Mode of Arrival: Medic Information source: Patient, Emergency Med Personnel TRAVEL OUTSIDE OF THE [place] IN LAST 30 DAYS: No - HPI Patient complains to provider of: fever, chills, cough, chest tightness Onset: Just prior to arrival Onset/Duration: Sudden Quality of pain: Achy Severity: Mild Pain Level: 2 Context: Congestion, Cough Associated symptoms: Chills, Nonproductive cough, Fever, Shortness of breath Similar symptoms previously: Yes Recently seen / treated by doctor: No Notes: Patient is an 81-year-old female brought to the emergency room by EMS for complaints of fever and chills with shaking, shortness of breath with hypoxia, chest tightness and nonproductive cough, symptoms started this afternoon, patient denies any pain on evaluation, no abdominal pain, no nausea, vomiting or diarrhea, no dysuria or hematuria, 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 - Related Data Allergies/Adverse Reactions: prednisone [Prednisone] Allergy (Unknown, Verified 01/15/16 20:44) cephalexin [Cephalexin] Allergy (Verified 01/15/16 20:44) Cephalosporins Allergy (Verified 02/09/16 14:47) ciprofloxacin [From Cipro] Allergy (Verified 01/15/16 20:44) cortisone [Cortisone] Allergy (Verified 01/15/16 20:44) Penicillins Allergy (Verified 02/09/16 14:47) phenazopyridine [Phenazopyridine] Allergy (Verified 01/15/16 20:44) sulfamethoxazole [From Bactrim] Allergy (Verified 01/15/16 20:44) tramadol HCl [From Ultram] Allergy (Verified 01/15/16 20:44) trimethoprim [From Bactrim] Allergy (Verified 01/15/16 20:44) Past Medical History - General Information source: Patient - Social History Smoking Status: Current Every Day Smoker Family History: Reviewed & Not Pertinent, DM, Hypertension - Past Medical History Cardiac Medical History: Reports: Hx Heart Attack - 10/2014, Hx Hypercholesterolemia, Hx Hypertension Pulmonary Medical History: Reports: Hx Asthma, Hx COPD, Hx Pneumonia Neurological Medical History: Reports: 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 , speech deficit Renal/ Medical History: Denies: Hx Peritoneal Dialysis Malignancy Medical History: Reports: Hx Skin Cancer GI Medical History: Reports: Hx Crohn's Disease, Hx Gastroesophageal Reflux Disease, Hx Hiatal Hernia, Hx Ulcer, Hx Ulcerative Colitis Musculoskeltal Medical History: Reports Hx Arthritis Psychiatric Medical History: Reports: Hx Depression Past Surgical History: Reports: Hx Abdominal Surgery - umbilical hernia, Hx Cardiac Catheterization - stent x 2, Hx Cardiac Surgery - Stent, Hx Coronary Stent - Immunizations Hx Diphtheria, Pertussis, Tetanus Vaccination: Yes Hx Pneumococcal Vaccination: 07/08/11 Review of Systems - Review of Systems Constitutional: See HPI EENT: No symptoms reported Cardiovascular: See HPI Respiratory: See HPI Gastrointestinal: No symptoms reported Genitourinary: No symptoms reported Female Genitourinary: No symptoms reported Musculoskeletal: No symptoms reported Skin: No symptoms reported Hematologic/Lymphatic: No symptoms reported Neurological/Psychological: No symptoms reported -: Yes All other systems reviewed and negative Physical Exam - Vital signs Vitals: Resp 17 10/15/16 20:08 Interpretation: Hypertensive, Tachycardic, Hypoxic, Tachypneic, Febrile - General General appearance: Alert In distress: Mild - HEENT Head: Normocephalic, Atraumatic Eyes: Normal Conjunctiva: Normal Extraocular movements intact: Yes Eyelashes: Normal Pupils: PERRL Pharynx: Normal Neck: Normal - Respiratory Respiratory status: Tachypnea Chest status: Nontender Breath sounds: Nonproductive cough, Wheezing Chest palpation: Normal - Cardiovascular Rhythm: Regular Heart sounds: Normal auscultation Murmur: No - Abdominal Inspection: Normal Distension: No distension Bowel sounds: Normal Tenderness: Nontender Organomegaly: No organomegaly - Back Back: Normal, Nontender - Extremities General upper extremity: Normal inspection, Nontender, Normal color, Normal ROM , Normal temperature General lower extremity: Normal inspection, Nontender, Normal color, Normal ROM , Normal temperature. No: Dell's sign - Neurological Cognition: Normal [place] Coma Scale Eye Opening: Spontaneous [place] Coma Scale Verbal: Oriented Tiny Coma Scale Motor: Obeys Commands Tiny Coma Scale Total: 15 Speech: Other - Slightly slurred speech Motor strength normal: LUE, LLE Sensory: Normal - Psychological Associated symptoms: Normal affect, Normal mood - Skin Skin Temperature: Warm Skin Moisture: Dry Skin Color: Normal Course - Re-evaluation Re-evalutation: 10/16/16 02:20 Patient with waxing and waning shortness of breath and hypoxia, chest x-ray shows likely infiltrate in the left lower lobe, patient has leukocytosis with bandemia, therefore she was started on antibiotics, and discussed with the hospitalist who agrees to admit for further evaluation and treatment - Vital Signs Vital signs: Temp Pulse Resp BP Pulse Ox 99.2 F 66 29 H 150/69 H 93 10/15/16 20:24 10/15/16 20:33 10/15/16 22:01 10/15/16 22:01 10/15/16 22:01 - Laboratory Result Diagrams: 10/15/16 20:12 10/15/16 20:12 Laboratory results interpreted by me: 10/15/16 10/15/16 10/15/16 20:12 20:12 21:51 WBC 13.0 H Hgb 11.9 L RDW 15.3 H Seg Neuts % (Manual) 89 H Band Neutrophils % 2 L Lymphocytes % (Manual) 6 L Abs Neuts (Manual) 11.8 H VBG pH 7.45 H BUN 24 H Glucose 135 H Urine Protein 10/15/16 21:51 WBC Hgb RDW Seg Neuts % (Manual) Band Neutrophils % Lymphocytes % (Manual) Abs Neuts (Manual) VBG pH BUN Glucose Urine Protein 100 H - Diagnostic Test Radiology reviewed: Image reviewed, Reports reviewed - EKG Interpretation by [place] EKG shows normal: Sinus rhythm Rate: Normal Rhythm: NSR - Transfer of Care Care transferred to following provider: Dr. López Discharge - Discharge Clinical Impression: COPD (chronic obstructive pulmonary disease) Qualifiers: COPD type: COPD with acute exacerbation Qualified Code(s): J44.1 - Chronic obstructive pulmonary disease with (acute) exacerbation Pneumonia Qualifiers: Pneumonia type: due to unspecified organism Laterality: left Lung location: lower lobe of lung Qualified Code(s): J18.1 - Lobar pneumonia, unspecified organism Condition: Fair Disposition: ADMITTED INPATIENT Admitting Provider: Hospitalist Unit Admitted: Telemetry
[2016-10-15 20:31] LABS: HEMATOCRIT 36.8 % (36.0-47.0); HEMOGLOBIN 11.9 g/dL (12.0-15.5); HGB HCT DIFFERENCE -1.1; MEAN CORPUSCULAR HEMOGLOBIN 28.6 pg (27.0-33.4); MEAN CORPUSCULAR HGB CONC 32.3 g/dL (32.0-36.0); MEAN CORPUSCULAR VOLUME 88 fl (80-97); RED BLOOD COUNT 4.17 10^6/uL (3.72-5.28); RED CELL DISTRIBUTION WIDTH 15.3 % (11.5-14.0)
[2016-10-15 20:45] LABS: ALANINE AMINOTRANSFERASE 28 U/L (9-52); ALBUMIN 4.4 g/dL (3.5-5.0); ALKALINE PHOSPHATASE 77 U/L (38-126); ANION GAP 15 (5-19); ASPARTATE AMINO TRANSFERASE 22 U/L (14-36); BILIRUBIN,DIRECT 0.2 mg/dL (0.0-0.4); BILIRUBIN,TOTAL 0.6 mg/dL (0.2-1.3); BLOOD UREA NITROGEN 24 mg/dL (7-20); CALCIUM 9.9 mg/dL (8.4-10.2); CARBON DIOXIDE 26 mmol/L (22-30); CHLORIDE 99 mmol/L (98-107); CREATININE RESULT 0.83 mg/dL (0.52-1.25); GLUCOSE 135 mg/dL (75-110); LIPASE 84.5 U/L (23-300); POTASSIUM 4.1 mmol/L (3.6-5.0); SODIUM 139.9 mmol/L (137-145); TOTAL PROTEIN 6.8 g/dL (6.3-8.2)
[2016-10-15 20:58] LABS: ANISOCYTOSIS SLIGHT; BAND NEUTROPHILS % (MANUAL) 2 % (3-5); BASOPHILS % (MANUAL) 0 % (0-2); EOSINOPHILS % (MANUAL) 0 % (0-6); LYMPHOCYTES % (MANUAL) 6 % (13-45); TOTAL CELLS COUNTED 100
[2016-10-15 22:08] LABS: VENOUS BLOOD BASE EXCESS 2.6 mmol/L; VENOUS BLOOD HCO3 26.8 mmol/L (20-32); VENOUS BLOOD PCO2 39.9 mmHg (35-63); VENOUS BLOOD PH 7.45 (7.30-7.42)
[2016-10-15 22:10] LABS: APPEARANCE,URINE CLEAR; BILIRUBIN,URINE NEGATIVE (NEGATIVE); GLUCOSE, URINE NEGATIVE (NEGATIVE); KETONES,URINE NEGATIVE (NEGATIVE); LEUKOCYTE ESTERASE,URINE NEGATIVE (NEGATIVE); NITRITE,URINE NEGATIVE (NEGATIVE); PROTEIN,URINE 100 mg/dL (NEGATIVE); URINE SPECIFIC GRAVITY 1.011; UROBILINOGEN,URINE NEGATIVE mg/dL (<2.0)
[2016-10-15] MEDS ORDERED: IPRATROPIUM/ALBUTEROL 0.5-2.5 MG/3 ML AMPUL NEB ONE (22:17)
[2016-10-16] MEDS ORDERED: ALBUTEROL SULFATE 0.083% NEB 2.5 MG/3 ML AMPUL NEB ONE (00:11)
[2016-10-16] MEDS ORDERED: AZTREONAM INJ 1 GM VIAL IV ONE (01:52)
[2016-10-16] MEDS ORDERED: GUAIFENESIN SYRP 200 MG/10 ML UDC PO PRN (05:26)
[2016-10-16] MEDS ORDERED: ALBUTEROL SULFATE 0.083% NEB 2.5 MG/3 ML AMPUL NEB PRN (05:26)
[2016-10-16] MEDS ORDERED: PHARMACY COMMUNICATION ORDER MC NR (05:30)
[2016-10-16] MEDS ORDERED: NICOTINE 7 MG/24 HR PATCH.TD24 TD PRN (05:38)
--- NOTE | 2016-10-16 05:52 | PDOC H&P ---
History of Present Illness Admission Date/PCP: 10/16/16 02:12 CARMELA RESENDIZ Patient complains of: chills History of Present Illness: CINTHYA DANIELLE is a 81 year old female with underlying nonhome O2 dependent COPD, continuing to smoke an uncertain amount, but from her description, not very much, who presents to the emergency room for evaluation of above complaint. Patient has been discussed with emergency room physician who evaluated the patient. Currently 5:30 in the morning. Patient is fatigued appears not to feel very well and overall is a rather poor historian. Per emergency room physician notes, starting the afternoon of the , patient began experiencing subjective fever and shaking chills, shortness of breath with reported hypoxia, chest discomfort and dry cough. no longer having any chest discomfort. No associated nausea vomiting or diarrhea, dysuria or hematuria. Emergency room physician has seen her chest x-ray, and is concerned about a possible left lower lobe infiltrate. Laboratory results are listed in [facility] and are reviewed. X-ray summary results are listed below, with full report(s) reviewed. Films reviewed also.. EKG reviewed. And compared to a tracing from the first of this month. Social history/personal habits: From review of old records, she is a . Lives alone. Retired. No alcohol or illicit drug use. Tobacco use as noted above. Allergies/adverse reactions are listed in [facility] and are reviewed. Home medications Home medications initially autopopulated into [facility] may not accurately reflect patient's true medications, dosages, and/or frequencies. model technician to reconcile medications. Unfortunately, patient uncertain of medications/dosages/frequencies. REVIEW OF SYSTEMS: Constitutional: See history and present illness. Eyes: Wears glasses. ENT: No swallowing problems or complaints. No hearing problems or complaints. Pulmonary: See history and present illness. Cardiovascular: See history and present illness. Gastrointestinal: No current complaints, including nausea or vomiting. Skin: No current complaints, including rashes. Hematologic: Easy bruising. Neurologic: Stroke in August of this year, which has left her with mild dysarthria, along with reported mild right-sided weakness. Musculoskeletal: Joint pain from arthritis. Psychiatric: No current complaints, including anxiety or depression. Endocrine: No current complaints, including polyuria. Genitourinary: No current complaints, including dysuria. PHYSICAL EXAMINATION: 5 feet 6 inches tall. 63.5 kg. BMI 22.6 kg/m. Blood pressure 136/56. Pulse 84 and regular. 93% saturation on 2 L oxygen per nasal cannula. Respirations are 17 and unlabored. Temperature 98.1. Thin otherwise well-developed though somewhat chronically ill-appearing female who nevertheless appears approximately her stated age. Initially asleep, but awakens reasonably easily. Pleasant and cooperative. Mildly anxious. No agitation. Appears somewhat fatigued, and also to feel a bit under the weather, so to speak. Skin is warm and dry. No grossly obvious evidence of rash in areas of skin examined. No subcutaneous nodules palpated. ENT: Hearing grossly normal to normal conversation. Tongue midline on protrusion pink and slightly tacky. Eyes: No scleral icterus. Pupils equal and reactive to light at 4 mm. [place] conjunctivae. Neck is supple and nontender to gentle active range of motion and palpation. Midline trachea. No palpable thyroid nodule mass enlargement or tenderness. Lymphatic: No palpable cervical or clavicular nodes. Neck and lymphatic exams limited by patient body habitus. Psychiatric: Difficult to adequately evaluate. See history and present illness. Lungs: Auscultation reveals clear and equal breath sounds bilaterally. No use of accessory respiratory muscles. Cardiovascular: Heart regular rate and rhythm, without gallop murmur or rub. No carotid or abdominal aortic bruits. No ankle or pedal edema. Faintly palpable dorsalis pedis pulses. Abdomen: soft, slightly distended nontender with positive bowel sounds. Unable to adequately evaluate abdomen for masses or organomegaly due to distention. Extremities: Feet are warm and dry. No calf tenderness to compression. No grossly obvious visual evidence of calf swelling. Gentle manipulation of lower extremities fails to reveal any obvious evidence of injury or instability to knees hips or ankles. Neurologic: Moves upper extremities grossly normally. Patellar reflexes absent. Absent Babinski. Light touch difficult to evaluate due to her current mental status.. Dorsiflexion and plantarflexion of feet 5 / 5 and symmetric. Past Medical History Past Medical History: See also information in 12/27/2014 history and physical exam. Cardiac Medical History: Reports: Myocardial Infarction - 10/2014, Hyperlipidema , Hypertension Pulmonary Medical History: Reports: Asthma, Chronic Obstructive Pulmonary Disease (COPD), Pneumonia Malignancy Medical History: Reports: Skin Cancer GI Medical History: Reports: Crohn's Disease, Gastroesophageal Reflux Disease, Hiatal Hernia, Ulcerative Colitis Musculoskeltal Medical History: Reports: Arthritis Psychiatric Medical History: Reports: Depression Past Surgical History Past Surgical History: Reports: Cardiac Catheterization - stent x 2, Coronary Stent Social History Information Source: Patient, Emergency Med Personnel, [facility] Records Lives with: Alone Smoking Status: Current Some Day Smoker Frequency of Alcohol Use: None Hx Recreational Drug Use: No Drugs: None Hx Prescription Drug Abuse: No - Advance Directive Resuscitation Status: Full Code Surrogate healthcare decision maker:: Charlie Centeno Family History Family History: Reviewed & Not Pertinent, DM, Hypertension Parental Family History Reviewed: Yes Children Family History Reviewed: Yes Sibling(s) Family History Reviewed.: Yes Medication/Allergy Home Medications: RX: Albuterol Sulfate [Ventolin 0.083% Neb 2.5 mg/3 mL Ampul] 3 ml NEB Q4HP PRN 10/16/16 RX: Albuterol Sulfate [Ventolin HFA MDI 18 GM] 2 puff IH Q4HP PRN 10/16/16 RX: Aspirin [Aspirin 81 mg Chewable Tablet] 81 mg PO DAILY 10/16/16 RX: Cholecalciferol (Vitamin D3) [Vitamin D3] 2,000 unit PO DAILY 10/16/16 RX: Citalopram Hydrobromide [Citalopram HBr] 10 mg PO DAILY 10/16/16 RX: Dexlansoprazole [Dexilant 60 mg Capsule] 60 mg PO DAILY 10/16/16 RX: Flaxseed Oil [Flax Seed Oil] 1,000 mg PO DAILY 10/16/16 RX: Fluticasone Propionate [Flonase Nasal [place] 50 Mcg/[place] 16 gm] 2 spray NASL DAILYP PRN 10/16/16 RX: Hydralazine HCl [Apresoline 50 mg Tablet] 50 mg PO Q8 10/16/16 RX: Mesalamine [Lialda] 2.4 gm PO [id number] 10/16/16 RX: Metoprolol Tartrate [Lopressor 50 mg Tablet] 50 mg PO Q12 10/16/16 RX: Mometasone/Formoterol [Dulera 100 Mcg/5 Mcg Inhaler] 2 puff IH Q12 10/16/16 RX: Nitroglycerin [Nitrostat] 0.4 mg SL Q5MP PRN 10/16/16 RX: Rosuvastatin Calcium [Crestor 10 mg Tablet] 10 mg PO DAILY 10/16/16 RX: Tiotropium [place] [Spiriva Handihaler 5 Cap/Kit (18 Mcg/Cap)] 1 puff IH DAILY 10/16/16 RX: Ubidecarenone [Coenzyme Q10] 100 mg PO DAILY 10/16/16 RX: Valsartan [Diovan 160 mg Tablet] 160 mg PO Q12 10/16/16 RX: Vitamin B Complex [B Complex] 1 each PO DAILY 10/16/16 Guaifenesin [Mucinex] 1,200 mg PO Q12 #12 tab.er.12h 10/18/16 RX: Doxycycline Hyclate 100 mg PO BID #16 capsule 10/18/16 Allergies/Adverse Reactions: prednisone [Prednisone] Allergy (Unknown, Verified 01/15/16 20:44) cephalexin [Cephalexin] Allergy (Verified 01/15/16 20:44) Cephalosporins Allergy (Verified 02/09/16 14:47) ciprofloxacin [From Cipro] Allergy (Verified 01/15/16 20:44) cortisone [Cortisone] Allergy (Verified 01/15/16 20:44) Penicillins Allergy (Verified 02/09/16 14:47) phenazopyridine [Phenazopyridine] Allergy (Verified 01/15/16 20:44) sulfamethoxazole [From Bactrim] Allergy (Verified 01/15/16 20:44) tramadol HCl [From Ultram] Allergy (Verified 01/15/16 20:44) trimethoprim [From Bactrim] Allergy (Verified 01/15/16 20:44) Physical Exam Vital Signs: Temp Pulse Resp BP Pulse Ox 99.2 F 66 22 H 136/56 H 91 L 10/15/16 20:24 10/15/16 20:33 10/16/16 04:01 10/16/16 04:00 10/16/16 04:01 Results Impressions: Chest X-Ray 10/15/16 19:54 IMPRESSION: No acute cardiopulmonary findings. Assessment & Plan - Diagnosis (1) Obstructive chronic bronchitis with exacerbation Is this a current diagnosis for this admission?: YesPlan: Patient will be admitted under COPD exacerbation protocol. Incentive spirometry twice a day. Scheduled DuoNeb's. PRN albuterol nebs Antibiotics will consist of intravenous Zithromax along with aztreonam. Patient is a full code. I have strongly encouraged patient not to get out of bed without notifying staff , , to avoid a fall with injury. Knee high SCDs for DVT prophylaxis, along with subcutaneous Lovenox Impression and plans were discussed with patient, who concurs. Time spent in evaluation and management of patient: 61 minutes. (2) Coronary atherosclerosis Qualifiers: Coronary Disease-Associated Artery/Lesion type: [place] artery [place] vs. transplanted heart: [place] heart Associated angina: without angina Qualified Code(s): I25.10 - Atherosclerotic heart disease of [place] coronary artery without angina pectoris Is this a current diagnosis for this admission?: YesPlan: Resume home medications as appropriate once these have been determined and reviewed. (3) Hyperlipidemia Qualifiers: Hyperlipidemia type: unspecified Qualified Code(s): E78.5 - Hyperlipidemia, unspecified Is this a current diagnosis for this admission?: YesPlan: Resume home medications as appropriate once these have been determined and reviewed. (4) Tobacco abuse Is this a current diagnosis for this admission?: YesPlan: When necessary nicotine patch. - Inpatient Certification Based on my medical assessment, after consideration of the patient's comorbidities, presenting symptoms, or acuity I expect that the services needed warrant INPATIENT care.: Yes I certify that my determination is in accordance with my understanding of Medicare's requirements for reasonable and necessary INPATIENT services [42 CFR 412.3e].: Yes Medical Necessity: Need Close Monitoring Due to Risk of Patient Decompensation, Need For Continuous Telemetry Monitoring, Need for Nebulizer Therapy and Monitoring of Response, Need for IV Antibiotics, Risk of Complication if Not Cared For in Hospital Post Hospital Care: D/C or Transfer Summary
[2016-10-16 06:28] LABS: ABSOLUTE BASOPHILS # (AUTO) 0.1 10^3/uL (0.0-0.2); ABSOLUTE LYMPHOCYTES (AUTO) 1.1 10^3/uL (0.5-4.7); ABSOLUTE MONOCYTES (AUTO) 0.6 10^3/uL (0.1-1.4); ABSOLUTE NEUT (AUTO) 11.6 10^3/uL (1.7-8.2); BASOPHILS % (AUTO) 0.5 % (0-2); EOSINOPHILS % (AUTO) 0.1 % (0-6); HEMATOCRIT 27.9 % (36.0-47.0); HGB HCT DIFFERENCE 0.3; LYMPHOCYTES % (AUTO) 8.2 % (13-45); MEAN CORPUSCULAR HEMOGLOBIN 29.6 pg (27.0-33.4); MEAN CORPUSCULAR HGB CONC 33.5 g/dL (32.0-36.0); MEAN CORPUSCULAR VOLUME 88 fl (80-97); MONOCYTES % (AUTO) 4.5 % (3-13); RED BLOOD COUNT 3.17 10^6/uL (3.72-5.28); RED CELL DISTRIBUTION WIDTH 15.3 % (11.5-14.0); SEGMENTED NEUTROPHILS % (AUTO) 86.7 % (42-78); WHITE BLOOD COUNT 13.4 10^3/uL (4.0-10.5)
[2016-10-16 06:47] LABS: HEMOGLOBIN 9.4 g/dL (12.0-15.5)
[2016-10-16 06:49] LABS: ANION GAP 8 (5-19); BLOOD UREA NITROGEN 22 mg/dL (7-20); CALCIUM 8.8 mg/dL (8.4-10.2); CARBON DIOXIDE 28 mmol/L (22-30); CHLORIDE 103 mmol/L (98-107); CREATININE RESULT 0.82 mg/dL (0.52-1.25); GLUCOSE 111 mg/dL (75-110); POTASSIUM 3.8 mmol/L (3.6-5.0); SODIUM 139.2 mmol/L (137-145)
[2016-10-16] MEDS: IPRATROPIUM/ALBUTEROL 0.5-2.5 MG/3 ML AMPUL NEB SCH ×3 (08:16→20:19)
[2016-10-16] MEDS: ENOXAPARIN SODIUM INJ 40 MG/0.4 ML DISP.SYRIN SUBCUT SCH (08:16)
--- NOTE | 2016-10-16 08:18 | EKG REPORT ---
SEVERITY:- ABNORMAL ECG - SINUS TACHYCARDIA PROBABLE LVH WITH SECONDARY REPOL ABNRM : Confirmed by: Saurabh Monroe MD 16-Oct-2016 08:17:35
[2016-10-16] MEDS ORDERED: AZITHROMYCIN 250 MG TABLET PO SCH (10:00)
[2016-10-16] MEDS: AZITHROMYCIN 500 MG in DEXTROSE 5%-WATER 250 ML IV SCH (10:27)
[2016-10-16] MEDS ORDERED: AZTREONAM 1 GM in DEXTROSE 5%-WATER 50 ML IV ONE ×4 (12:00)
[2016-10-16] MEDS ORDERED: AZTREONAM INJ 1 GM VIAL IV SCH (12:00)
[2016-10-16] MEDS: AZTREONAM 1 GM in DEXTROSE 5%-WATER 100 ML IV SCH (17:39)
[2016-10-16] MEDS ORDERED: AZTREONAM 1 GM in DEXTROSE 5%-WATER 50 ML IV SCH (22:00)
[2016-10-17] MEDS: AZTREONAM 1 GM in DEXTROSE 5%-WATER 100 ML IV SCH ×2 (05:13→17:06)
[2016-10-17] MEDS: IPRATROPIUM/ALBUTEROL 0.5-2.5 MG/3 ML AMPUL NEB SCH ×3 (08:14→20:57)
[2016-10-17] MEDS: AZITHROMYCIN 500 MG in DEXTROSE 5%-WATER 250 ML IV SCH (10:34)
[2016-10-17] MEDS: ENOXAPARIN SODIUM INJ 40 MG/0.4 ML DISP.SYRIN SUBCUT SCH (10:35)
[2016-10-17] MEDS ORDERED: NITROGLYCERIN 0.4 MG/TAB 25 TAB/BOTTLE SL PRN (10:58)
[2016-10-17] MEDS ORDERED: FLUTICASONE NASAL SPRAY 50 MCG/SPRY 120 SPRAY/16 GM NASL PRN (10:58)
[2016-10-17] MEDS ORDERED: HYDRALAZINE HCL 50 MG TABLET PO SCH (11:00)
[2016-10-17] MEDS ORDERED: (PENDING PHARMACY ID) (Citalopram Hydrobromide [Citalopram Hbr] 10 MG) PO SCH (11:00)
[2016-10-17] MEDS ORDERED: CHOLECALCIFEROL (D3) 1,000 UNIT TABLET PO ONE (12:30)
[2016-10-17] MEDS ORDERED: METOPROLOL TARTRATE 50 MG TABLET PO ONE (12:30)
[2016-10-17] MEDS ORDERED: CITALOPRAM HYDROBROMIDE 20 MG TABLET PO ONE (12:30)
[2016-10-17] MEDS ORDERED: VALSARTAN 160 MG TABLET PO ONE (12:30)
[2016-10-17] MEDS ORDERED: HYDRALAZINE HCL 50 MG TABLET PO ONE (12:30)
[2016-10-17] MEDS ORDERED: ATORVASTATIN CALCIUM 10 MG TABLET PO ONE (12:30)
[2016-10-17] MEDS ORDERED: LANSOPRAZOLE 30 MG TAB.RAP.DR PO ONE ×2 (12:30)
[2016-10-17] MEDS ORDERED: TIOTROPIUM BROMIDE DPI 5 CAP/KIT (18 MCG/CAP) IH ONE (13:00)
[2016-10-17] MEDS: HYDRALAZINE HCL 50 MG TABLET PO SCH (17:07)
--- NOTE | 2016-10-17 17:35 | PDOC PROGRESS REPORT ---
Subjective Progress Note for:: 10/17/16 Subjective:: The patient was seen earlier today on rounds. The patient denies any nausea, vomiting, diarrhea, shortness of breath, dizziness, chest pain, heart palpitations, fevers, or chills. The patient has remained afebrile. Blood pressures have been in a good range. When prompted the patient voices no other concerns at this time. Review of systems: The rest of the review of systems is negative. Physical Exam Vital Signs: Temp Pulse Resp BP Pulse Ox 97.7 F 67 18 130/47 H 99 10/17/16 15:30 10/17/16 15:30 10/17/16 15:30 10/17/16 15:30 10/17/16 15:30 Intake & Output 10/15/16 10/16/16 10/17/16 23:59 23:59 23:59 Intake Total 150 700 Balance 150 700 Weight 71.7 kg General appearance: PRESENT: no acute distress, cooperative, well-developed, well-nourished Head exam: PRESENT: atraumatic, normocephalic Eye exam: PRESENT: conjunctiva pink, EOMI, PERRLA. ABSENT: scleral icterus Ear exam: PRESENT: normal external ear exam Mouth exam: PRESENT: moist, tongue midline Neck exam: ABSENT: carotid bruit, JVD, lymphadenopathy, thyromegaly Respiratory exam: PRESENT: decreased breath sounds, symmetrical, unlabored. ABSENT: rales, rhonchi, tachypnea, wheezes Cardiovascular exam: PRESENT: RRR. ABSENT: diastolic murmur, rubs, systolic murmur Pulses: PRESENT: normal dorsalis pedis pul Vascular exam: PRESENT: normal capillary refill GI/Abdominal exam: PRESENT: normal bowel sounds, soft. ABSENT: distended, guarding, mass, organolmegaly, rebound, tenderness Rectal exam: PRESENT: deferred Extremities exam: PRESENT: full ROM. ABSENT: calf tenderness, clubbing, pedal edema Neurological exam: PRESENT: alert, awake, oriented to person, oriented to place , oriented to time, oriented to situation, CN II-XII grossly intact. ABSENT: motor sensory deficit Psychiatric exam: PRESENT: appropriate affect, normal mood. ABSENT: homicidal ideation, suicidal ideation Skin exam: PRESENT: dry, intact, warm. ABSENT: cyanosis, rash Results Laboratory Results: 10/16/16 06:18 04/11/17 06:18 Impressions: Chest X-Ray 10/15/16 19:54 IMPRESSION: No acute cardiopulmonary findings. Assessment & Plan - Diagnosis (1) Obstructive chronic bronchitis with exacerbation Is this a current diagnosis for this admission?: YesPlan: Will continue current medications the patient most likely will be discharged in the a.m. (2) Accelerated essential hypertension Is this a current diagnosis for this admission?: Yes (3) Acute and chronic respiratory failure ([id number]) Qualifiers: Respiratory failure complication: hypoxia Qualified Code(s): J96.21 - Acute and chronic respiratory failure with hypoxia Is this a current diagnosis for this admission?: Yes (4) GERD (gastroesophageal reflux disease) Qualifiers: Esophagitis presence: without esophagitis Qualified Code(s): K21.9 - Gastro-esophageal reflux disease without esophagitis Is this a current diagnosis for this admission?: Yes (5) CAD (coronary artery disease) Qualifiers: Coronary Disease-Associated Artery/Lesion type: unspecified vessel or lesion type [place] vs. transplanted heart: [place] heart Associated angina: angina presence unspecified Qualified Code(s): I25.10 - Atherosclerotic heart disease of [place] coronary artery without angina pectoris Is this a current diagnosis for this admission?: Yes (6) Coronary atherosclerosis Qualifiers: Coronary Disease-Associated Artery/Lesion type: [place] artery [place] vs. 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 Is this a current diagnosis for this admission?: Yes (8) Hyperlipidemia Qualifiers: Hyperlipidemia type: unspecified Qualified Code(s): E78.5 - Hyperlipidemia, unspecified Is this a current diagnosis for this admission?: Yes (9) Stented coronary artery Is this a current diagnosis for this admission?: Yes (10) Tobacco abuse Is this a current diagnosis for this admission?: Yes (11) Ulcerative colitis Is this a current diagnosis for this admission?: No (12) Carotid stenosis Qualifiers: Laterality: unspecified laterality Qualified Code(s): I65.29 - Occlusion and stenosis of unspecified carotid artery Is this a current diagnosis for this admission?: No (13) History of CVA (cerebrovascular accident) Is this a current diagnosis for this admission?: Yes (14) Thyroid nodule Is this a current diagnosis for this admission?: No (15) NSVT (nonsustained ventricular tachycardia) Is this a current diagnosis for this admission?: No - Time Time Spent with patient: 25-34 minutes Medications reviewed and adjusted accordingly: Yes Anticipated discharge: Home Within: within 24 hours
[2016-10-17] MEDS: VALSARTAN 160 MG TABLET PO SCH (21:08)
[2016-10-17] MEDS: METOPROLOL TARTRATE 50 MG TABLET PO SCH (21:08)
[2016-10-17] MEDS ORDERED: ATORVASTATIN CALCIUM 10 MG TABLET PO SCH (22:00)
[2016-10-17] MEDS ORDERED: (PENDING PHARMACY ID) (Mometasone/Formoterol [Dulera 100 Mcg/5 Mcg Inhaler] 2 PUFF) IH SCH (22:00)
[2016-10-18] MEDS: HYDRALAZINE HCL 50 MG TABLET PO SCH ×2 (03:23→10:24)
[2016-10-18] MEDS: AZTREONAM 1 GM in DEXTROSE 5%-WATER 100 ML IV SCH (05:50)
[2016-10-18 07:55] VITALS: BP 137/51
[2016-10-18] MEDS: IPRATROPIUM/ALBUTEROL 0.5-2.5 MG/3 ML AMPUL NEB SCH ×2 (08:56→14:09)
[2016-10-18] MEDS ORDERED: LANSOPRAZOLE 30 MG TAB.RAP.DR PO SCH (10:00)
[2016-10-18] MEDS ORDERED: MULTIVIT-STRESS FORMULA/ZINC TABLET PO SCH (10:00)
[2016-10-18] MEDS ORDERED: TIOTROPIUM BROMIDE DPI 5 CAP/KIT (18 MCG/CAP) IH SCH (10:00)
[2016-10-18] MEDS ORDERED: UBIDECARENONE 100 MG PO SCH (10:00)
[2016-10-18] MEDS ORDERED: ASPIRIN 81 MG TABLET, CHEWABLE PO SCH (10:00)
[2016-10-18] MEDS ORDERED: (PENDING PHARMACY ID) (Cholecalciferol (Vitamin D3) [Vitamin D3] 2,000 UNIT) PO SCH (10:00)
[2016-10-18] MEDS ORDERED: CITALOPRAM HYDROBROMIDE 20 MG TABLET PO SCH (10:00)
[2016-10-18] MEDS ORDERED: (PENDING PHARMACY ID) (Flaxseed Oil [Flax Seed Oil] 1,000 MG) PO SCH (10:00)
[2016-10-18] MEDS ORDERED: CHOLECALCIFEROL (D3) 1,000 UNIT TABLET PO SCH (10:00)
[2016-10-18] MEDS ORDERED: ATORVASTATIN CALCIUM 10 MG TABLET PO SCH (10:00)
[2016-10-18] MEDS: METOPROLOL TARTRATE 50 MG TABLET PO SCH (10:23)
[2016-10-18] MEDS: ENOXAPARIN SODIUM INJ 40 MG/0.4 ML DISP.SYRIN SUBCUT SCH (10:23)
[2016-10-18] MEDS: VALSARTAN 160 MG TABLET PO SCH (10:23)
[2016-10-18] MEDS: AZITHROMYCIN 500 MG in DEXTROSE 5%-WATER 250 ML IV SCH (10:53)
--- NOTE | 2016-10-18 10:58 | Physician Advisory Note ---
Physician Advisor ProgressNote .: Pursuant to the plan for [facility], I have reviewed the medical record for this patient. Physician Advisor Statement: Possible documentation opportunities if attending agrees: 1. "Acute bronchitis" or "possible LLL pneumonia, possibly gram-negative given underlying COPD" 2. "Hypertensive urgency" - Now, "Accelerated HTN" or malignant HTN is taken to mean the same thing as "benign HTN". If pt has zOL313+ &/or fIQ315+ , without associated sx -> "HTNive urgency" is now the accepted term. If pt has iXQ646+ &/or fLT361+ , & sx of possible organ damage, such as WOODS, CP, SOB, acute exac of CHF, ... -> "Hypertensive emergency" is now the accepted term, & we need documentation of what s/s were caused by the HTN. 3. r.e. "Ac hypoxemic resp failure" - please document if/when there was any time her breathing was labored/increased in effort/she was using accessory muscles to breathe, in addition to the hypoxemia. - Pt did have O2 sat 95% on 2L O2 initially, for P/F ratio of 286, which is consistent with Acute Resp Failure. 4. r.e. "Chronic hypoxemia resp failure" - please document supporting evidence for this dx, or indicate it was ruled out: - Per H&P, pt is "[id number]-dependent", & per initial RT eval, pt does not have O2 @home. 5. ? - "possible sepsis, present on admission, due to ___, ruled out/in" As always, if concerned about any unstable VS or abnormal labs, please comment on them & note what doing about them, & please document each day the potential clinical problems you are concerned could occur if pt not kept in hospital for tx at this time. Thanks for your help with documentation accuracy/specificity improvement! Supriya Jacob MD [facility] Physician Advisor, Fellow of Hospital Medicine
[2016-10-19] MEDS ORDERED: AZITHROMYCIN 250 MG TABLET PO SCH (10:00)
--- NOTE | 2016-10-19 11:53 | PDOC DISCHARGE SUMMARY ---
General - Admit/Disc Date/PCP Admission Date/Primary Care Provider: 10/16/16 05:27 CARMELA RESENDIZ Discharge Date: 10/18/16 - Discharge Diagnosis (1) Obstructive chronic bronchitis with exacerbation Is this a current diagnosis for this admission?: Yes (2) Accelerated essential hypertension Is this a current diagnosis for this admission?: Yes (3) Acute and chronic respiratory failure ([id number]) Is this a current diagnosis for this admission?: Yes (4) GERD (gastroesophageal reflux disease) Is this a current diagnosis for this admission?: Yes (5) CAD (coronary artery disease) Is this a current diagnosis for this admission?: Yes (6) Coronary atherosclerosis Is this a current diagnosis for this admission?: Yes (7) 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 Is this a current diagnosis for this admission?: Yes (8) Hyperlipidemia Is this a current diagnosis for this admission?: Yes (9) Stented coronary artery Is this a current diagnosis for this admission?: Yes (10) Tobacco abuse Is this a current diagnosis for this admission?: Yes (11) Ulcerative colitis Is this a current diagnosis for this admission?: No (12) Carotid stenosis Is this a current diagnosis for this admission?: No (13) History of CVA (cerebrovascular accident) Is this a current diagnosis for this admission?: Yes (14) Thyroid nodule Is this a current diagnosis for this admission?: No (15) NSVT (nonsustained ventricular tachycardia) Is this a current diagnosis for this admission?: No - Additional Information Resuscitation Status: Full Code Discharge Diet: As Tolerated Discharge Activity: Activity As Tolerated, Energy Conservation Home Medications: Albuterol Sulfate [Ventolin 0.083% Neb 2.5 mg/3 mL Ampul] 3 ml NEB Q4HP PRN 05/24 Albuterol Sulfate [Ventolin HFA MDI 18 GM] 2 puff IH Q4HP PRN 10/16/16 Aspirin [Aspirin 81 mg Chewable Tablet] 81 mg PO DAILY 10/16/16 Cholecalciferol (Vitamin D3) [Vitamin D3] 2,000 unit PO DAILY 10/16/16 Citalopram Hydrobromide [Citalopram HBr] 10 mg PO DAILY 10/16/16 Dexlansoprazole [Dexilant 60 mg Capsule] 60 mg PO DAILY 10/16/16 Flaxseed Oil [Flax Seed Oil] 1,000 mg PO DAILY 10/16/16 Fluticasone Propionate [Flonase Nasal Freedom 50 Mcg/Freedom 16 gm] 2 spray NASL DAILYP PRN 10/16/16 Hydralazine HCl [Apresoline 50 mg Tablet] 50 mg PO Q8 10/16/16 Mesalamine [Lialda] 2.4 gm PO [id number] 10/16/16 Metoprolol Tartrate [Lopressor 50 mg Tablet] 50 mg PO Q12 10/16/16 Mometasone/Formoterol [Dulera 100 Mcg/5 Mcg Inhaler] 2 puff IH Q12 10/16/16 Nitroglycerin [Nitrostat] 0.4 mg SL Q5MP PRN 10/16/16 Rosuvastatin Calcium [Crestor 10 mg Tablet] 10 mg PO DAILY 10/16/16 Tiotropium [place] [Spiriva Handihaler 5 Cap/Kit (18 Mcg/Cap)] 1 puff IH DAILY 10/16/16 Ubidecarenone [Coenzyme Q10] 100 mg PO DAILY 10/16/16 Valsartan [Diovan 160 mg Tablet] 160 mg PO Q12 10/16/16 Vitamin B Complex [B Complex] 1 each PO DAILY 10/16/16 Doxycycline Hyclate 100 mg PO BID #16 capsule 10/18/16 Guaifenesin [Mucinex] 1,200 mg PO Q12 #12 tab.er.12h 10/18/16 History of Present Illness Patient complains of: Chills History of Present Illness: CINTHYA DANIELLE is a 81 year old female with underlying nonhome O2 dependent COPD, continuing to smoke an uncertain amount, but from her description, not very much, who presents to the emergency room for evaluation of chills. Patient is fatigued appears not to feel very well and overall is a rather poor historian. Per emergency room physician notes, starting the afternoon of the , patient began experiencing subjective fever and shaking chills, shortness of breath with reported hypoxia, chest discomfort and dry cough no longer having any chest discomfort. No associated nausea vomiting or diarrhea, dysuria or hematuria. Hospital Course Hospital Course: The patient was admitted to us telemetry unit. The patient's home medications were resumed. The patient's long-acting COPD medications were resumed. The patient was placed on scheduled nebs, IV antibiotic coverage, expectorants, supplemental O2, senna spirometry and flutter valve. Throat culture was obtained with no growth. The patient was transitioned back to baseline oxygen. The patient is back to baseline and able to complete sentences. Patient is quite eager for discharge for dental procedure. Physical Exam Vital Signs: Temp Pulse Resp BP Pulse Ox 98.2 F 63 16 137/51 H 96 10/18/16 12:26 10/18/16 12:26 10/18/16 12:26 10/18/16 12:26 10/18/16 12:26 Intake & Output 10/17/16 10/18/16 10/19/16 23:59 23:59 23:59 Intake Total 1730 120 Balance 1730 120 Weight 71.7 kg General appearance: PRESENT: no acute distress, cooperative, well-developed, well-nourished Head exam: PRESENT: atraumatic, normocephalic Eye exam: PRESENT: conjunctiva pink, EOMI, PERRLA. ABSENT: scleral icterus Ear exam: PRESENT: normal external ear exam Mouth exam: PRESENT: moist, tongue midline Neck exam: ABSENT: carotid bruit, JVD, lymphadenopathy, thyromegaly Respiratory exam: PRESENT: decreased breath sounds, symmetrical, unlabored. ABSENT: rales, rhonchi, tachypnea, wheezes Cardiovascular exam: PRESENT: RRR. ABSENT: diastolic murmur, rubs, systolic murmur Pulses: PRESENT: normal dorsalis pedis pul Vascular exam: PRESENT: normal capillary refill GI/Abdominal exam: PRESENT: normal bowel sounds, soft. ABSENT: distended, guarding, mass, organolmegaly, rebound, tenderness Rectal exam: PRESENT: deferred Extremities exam: PRESENT: full ROM. ABSENT: calf tenderness, clubbing, pedal edema Neurological exam: PRESENT: alert, awake, oriented to person, oriented to place , oriented to time, oriented to situation, CN II-XII grossly intact. ABSENT: motor sensory deficit Psychiatric exam: PRESENT: appropriate affect, normal mood. ABSENT: homicidal ideation, suicidal ideation Skin exam: PRESENT: dry, intact, warm. ABSENT: cyanosis, rash Results Laboratory Results: Labs- Last Values WBC 13.4 10^3/uL (4.0-10.5) H 10/16/16 06:18 RBC 3.17 10^6/uL (3.72-5.28) L 10/16/16 06:18 Hgb 9.4 g/dL (12.0-15.5) L D 10/16/16 06:18 Hct 27.9 % (36.0-47.0) L 10/16/16 06:18 MCV 88 fl (80-97) 10/16/16 06:18 MCH 29.6 pg (27.0-33.4) 10/16/16 06:18 MCHC 33.5 g/dL (32.0-36.0) 10/16/16 06:18 RDW 15.3 % (11.5-14.0) H 10/16/16 06:18 Plt Count 165 10^3/uL (150-450) 10/16/16 06:18 Total Counted 100 10/15/16 20:12 Seg Neutrophils % 86.7 % (42-78) H 10/16/16 06:18 Seg Neuts % (Manual) 89 % (42-78) H 10/15/16 20:12 Band Neutrophils % 2 % (3-5) L 10/15/16 20:12 Lymphocytes % 8.2 % (13-45) L 10/16/16 06:18 Lymphocytes % (Manual) 6 % (13-45) L 10/15/16 20:12 Monocytes % 4.5 % (3-13) 10/16/16 06:18 Monocytes % (Manual) 3 % (3-13) 10/15/16 20:12 Eosinophils % 0.1 % (0-6) 10/16/16 06:18 Eosinophils % (Manual) 0 % (0-6) 10/15/16 20:12 Basophils % 0.5 % (0-2) 10/16/16 06:18 Basophils % (Manual) 0 % (0-2) 10/15/16 20:12 Absolute Neutrophils 11.6 10^3/uL (1.7-8.2) H 10/16/16 06:18 Abs Neuts (Manual) 11.8 10^3/uL (1.7-8.2) H 10/15/16 20:12 Absolute Lymphocytes 1.1 10^3/uL (0.5-4.7) 10/16/16 06:18 Abs Lymphs (Manual) 0.8 10^3/uL (0.5-4.7) 10/15/16 20:12 Absolute Monocytes 0.6 10^3/uL (0.1-1.4) 10/16/16 06:18 Abs Monocytes (Manual) 0.4 10^3/uL (0.1-1.4) 10/15/16 20:12 Absolute Eosinophils 0.0 10^3/uL (0.0-0.6) 10/16/16 06:18 Absolute Eos (Manual) 0.0 10^3/uL (0.0-0.6) 10/15/16 20:12 Absolute Basophils 0.1 10^3/uL (0.0-0.2) 10/16/16 06:18 Abs Basophils (Manual) 0.0 10^3/uL (0.0-0.2) 10/15/16 20:12 Large Platelets PRESENT 10/15/16 20:12 Giant Platelets PRESENT 10/15/16 20:12 Platelet Comment ADEQUATE 10/15/16 20:12 Anisocytosis SLIGHT 10/15/16 20:12 VBG pH 7.45 (7.30-7.42) H 10/15/16 21:51 VBG pCO2 39.9 mmHg (35-63) 10/15/16 21:51 VBG HCO3 26.8 mmol/L (20-32) 10/15/16 21:51 VBG Base Excess 2.6 mmol/L 10/15/16 21:51 Sodium 139.2 mmol/L (137-145) 10/16/16 06:18 Potassium 3.8 mmol/L (3.6-5.0) 10/16/16 06:18 Chloride 103 mmol/L (98-107) 10/16/16 06:18 Carbon Dioxide 28 mmol/L (22-30) 10/16/16 06:18 Anion Gap 8 (5-19) 10/16/16 06:18 BUN 22 mg/dL (7-20) H 10/16/16 06:18 Creatinine 0.82 mg/dL (0.52-1.25) 10/16/16 06:18 Est GFR ( Amer) > 60 (>60) 10/16/16 06:18 Est GFR (Non-Af Amer) > 60 (>60) 10/16/16 06:18 Glucose 111 mg/dL (75-110) H 10/16/16 06:18 Calcium 8.8 mg/dL (8.4-10.2) 10/16/16 06:18 Total Bilirubin 0.6 mg/dL (0.2-1.3) 10/15/16 20:12 Direct Bilirubin 0.2 mg/dL (0.0-0.4) 10/15/16 20:12 Indirect Bilirubin Not Reportable 10/15/16 20:12 Neonat Total Bilirubin Not Reportable 10/15/16 20:12 AST 22 U/L (14-36) 10/15/16 20:12 ALT 28 U/L (9-52) 10/15/16 20:12 Alkaline Phosphatase 77 U/L (38-126) 10/15/16 20:12 Total Protein 6.8 g/dL (6.3-8.2) 10/15/16 20:12 Albumin 4.4 g/dL (3.5-5.0) 10/15/16 20:12 Lipase 84.5 U/L (23-300) 10/15/16 20:12 Urine Color YELLOW 10/15/16 21:51 Urine Appearance CLEAR 10/15/16 21:51 Urine pH 6.0 (5.0-9.0) 10/15/16 21:51 Ur Specific [place] 1.011 10/15/16 21:51 Urine Protein 100 mg/dL (NEGATIVE) H 10/15/16 21:51 Urine Glucose (UA) NEGATIVE mg/dL (NEGATIVE) 10/15/16 21:51 Urine Ketones NEGATIVE mg/dL (NEGATIVE) 10/15/16 21:51 Urine Blood NEGATIVE (NEGATIVE) 10/15/16 21:51 Urine Nitrite NEGATIVE (NEGATIVE) 10/15/16 21:51 Urine Bilirubin NEGATIVE (NEGATIVE) 10/15/16 21:51 Urine Urobilinogen NEGATIVE mg/dL (<2.0) 10/15/16 21:51 Ur Leukocyte Esterase NEGATIVE (NEGATIVE) 10/15/16 21:51 Urine WBC (Auto) 1 /HPF 10/15/16 21:51 Urine RBC (Auto) 1 /HPF 10/15/16 21:51 Squamous Epi Cells Auto <1 /HPF 10/15/16 21:51 Urine Ascorbic Acid NEGATIVE (NEGATIVE) 10/15/16 21:51 Influenza A (Rapid) NEGATIVE (NEGATIVE) 10/16/16 00:00 Influenza B (Rapid) NEGATIVE (NEGATIVE) 10/16/16 00:00 Group A Strep Rapid NEGATIVE (NEGATIVE) 10/16/16 00:00 10/16/16 00:00 Throat Culture - Final Throat NORMAL DEEJAY 10/15/16 22:45 Blood Culture - Preliminary Blood NO GROWTH AFTER 72 HOURS 10/15/16 21:51 Urine Culture - Final Clean Catch Midstream Mixed Urogenital Deejay 10/15/16 20:12 Blood Culture - Preliminary Blood NO GROWTH AFTER 72 HOURS Impressions: Chest X-Ray 10/15/16 19:54 IMPRESSION: No acute cardiopulmonary findings. Qualifiers PATEINT BEING DISCHARGED WITH ANY OF THE FOLLOWING DIAGNOSIS?: No Plan Discharge Plan: The patient is to followup with their primary care provider, pneumonia, within one week for hospital followup regarding Jennifer. Time Spent: Less than 30 Minutes
== END 2016-10-18 15:18 | disposition home or self-care (01) | DRG 190 ==
LOC: ER 19:36 → EH 10-16 02:12 → UNDOADMIN 10-16 02:12 → EH 10-16 05:27 → 4S 10-16 14:50
PROVIDERS: ADMIT Family Medicine; ATTEND Family Medicine
PROC: 3E0F73Z Introduction of Anti-inflammatory into Respiratory Tract, Via Natural or Artificial Opening (ICD-10-PCS; principal; 2016-10-16)
DX: J44.1 Chronic obstructive pulmonary disease with (acute) exacerbation (principal); J96.21 Acute and chronic respiratory failure with hypoxia; I63.9 Cerebral infarction, unspecified; K51.90 Ulcerative colitis, unspecified, without complications; I47.2 Ventricular tachycardia; G81.91 Hemiplegia, unspecified affecting right dominant side; I10 Essential (primary) hypertension; K21.9 Gastro-esophageal reflux disease without esophagitis; I25.10 Atherosclerotic heart disease of native coronary artery without angina pectoris; R47.1 Dysarthria and anarthria; E78.5 Hyperlipidemia, unspecified; E04.1 Nontoxic single thyroid nodule; F17.210 Nicotine dependence, cigarettes, uncomplicated; M19.90 Unspecified osteoarthritis, unspecified site; F32.9 Major depressive disorder, single episode, unspecified; I65.29 Occlusion and stenosis of unspecified carotid artery; I25.2 Old myocardial infarction; Z85.828 Personal history of other malignant neoplasm of skin; Z60.2 Problems related to living alone; Z95.5 Presence of coronary angioplasty implant and graft; Z79.899 Other long term (current) drug therapy; Z99.81 Dependence on supplemental oxygen; Z88.8 Allergy status to other drugs, medicaments and biological substances; Z88.1 Allergy status to other antibiotic agents; Z88.3 Allergy status to other anti-infective agents; Z88.0 Allergy status to penicillin; Z88.2 Allergy status to sulfonamides; Z88.6 Allergy status to analgesic agent; Z83.3 Family history of diabetes mellitus; Z82.49 Family history of ischemic heart disease and other diseases of the circulatory system
CPT/HCPCS: 36415; 71020; 80048; 80053; 81001; 82803; 83690; 85025; 87040; 87070; 87086; 87804; 87880; 93005; 93010; 94640; 94799; 96360; 99285; J0456; J1650; J3490; J7030; J7060; J7620

== ENCOUNTER 2017-02-15 19:01 | Emergency (ER) | payer OTHER ==
--- NOTE | 2017-02-15 19:48 | ER Document Report ---
HPI - HPI Pain Level: 4 Notes: Patient is an 81-year-old female with a history of CVA, NV, CAD, and tobacco abuse who presents to the ED complaining of elevated blood pressure in bilateral shoulder/neck pain. Patient states that she has chronic neck and shoulder pain and it is without any acute changes. Patient states that the pain does not radiate. Patient states that she did call EMS because her blood pressure was elevated for them to recheck it, and patient was not expecting them to bring her to the ED. Patient states that she has been taking her blood pressure pills regularly. She is accompanied by her son and her daughter. Her son states that this is not uncommon for her and that her systolic reading will elevate from time to time. Patient states that she was still eating and drinking without any difficulties today. Patient states that she is still ambulating without becoming short of breath or having any worsening pain or development of chest pain. Patient did take 1 nitro sublingually today to see if that will help her blood pressure. Patient states that she does have urinary burning, urgency, and frequency "all the time" and would like her urine checked. Her PCM is Rachel Kay. Denies any headache, fever, neck stiffness, changes in vision/speech/mentation/hearing, URI, sore throat, chest pain, palpitations, syncope, cough, shortness of breath, wheeze, dyspnea, abdominal pain, nausea/vomiting/diarrhea, urinary retention, hematuria, loss of control of bowel or bladder, numbness/tingling, saddle anesthesia, muscle paralysis/weakness, or rash. - ROS Notes: REVIEW OF SYSTEMS: CONSTITUTIONAL : Denies fever, chills, or sweats. Denies recent illness. EENT: Denies eye, ear, throat, or mouth pain or symptoms. Denies nasal or sinus congestion or discharge. Denies throat, tongue, or mouth swelling or difficulty swallowing. CARDIOVASCULAR: Denies chest pain. Denies palpitations or racing or irregular heart beat. Denies ankle edema. RESPIRATORY: Denies cough, cold, or chest congestion. Denies shortness of breath, difficulty breathing, or wheezing. GASTROINTESTINAL: Denies abdominal pain or distention. Denies nausea, vomiting , or diarrhea. Denies blood in vomitus, stools, or per rectum. Denies black, tarry stools. Denies constipation. GENITOURINARY: see hpi MUSCULOSKELETAL: see hpi SKIN: Denies rash, lesions or sores. NEUROLOGICAL: Denies confusion or altered mental status. Denies passing out or loss of consciousness. Denies dizziness or lightheadedness. Denies headache. Denies weakness or paralysis or loss of use of either side. Denies problems with gait or speech. Denies sensory loss, numbness, or tingling. Denies seizures. PSYCHIATRIC: Denies anxiety or stress. Denies depression, suicidal ideation, or homicidal ideation. ALL OTHER SYSTEMS REVIEWED AND NEGATIVE. Dictation was performed using [employer] voice recognition software - CARDIOVASCULAR Cardiovascular: DENIES: Chest pain - REPRODUCTIVE Reproductive: DENIES: : Past Medical History - Social History Smoking Status: Current Every Day Smoker Family History: Reviewed & Not Pertinent, DM, Hypertension - Past Medical History Cardiac Medical History: Reports: Hx Heart Attack - 10/2014, Hx Hypercholesterolemia, Hx Hypertension Pulmonary Medical History: Reports: Hx Asthma, Hx COPD, Hx Pneumonia Neurological Medical History: Reports: 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 , speech deficit Renal/ Medical History: Denies: Hx Peritoneal Dialysis Malignancy Medical History: Reports: Hx Skin Cancer GI Medical History: Reports: Hx Crohn's Disease, Hx Gastroesophageal Reflux Disease, Hx Hiatal Hernia, Hx Ulcer, Hx Ulcerative Colitis Musculoskeltal Medical History: Reports Hx Arthritis Psychiatric Medical History: Reports: Hx Depression Past Surgical History: Reports: Hx Abdominal Surgery - umbilical hernia, Hx Cardiac Catheterization - stent x 2, Hx Cardiac Surgery - Stent, Hx Coronary Stent - Immunizations Hx Diphtheria, Pertussis, Tetanus Vaccination: Yes Hx Pneumococcal Vaccination: 07/08/11 Vertical Provider Document - CONSTITUTIONAL Agree With Documented VS: Yes Notes: PHYSICAL EXAMINATION: GENERAL: Well-appearing, well-nourished and in no acute distress. A&Ox3 HEAD: Atraumatic, normocephalic. EYES: Pupils equal round and reactive to light, extraocular movements intact, sclera anicteric, conjunctiva are normal. ENT: EAC clear b/l. TM's intact b/l without erythema, fluid, or perforation. Nares patent and without discharge. oropharynx clear without exudates. No tonsilar hypertrophy or erythema. Moist mucous membranes. No sinus tenderness. NECK: Normal range of motion, supple without lymphadenopathy. No rigidity. + tenderness to her trap muscles b/l, + mild spasming/tightness. No midline tenderness. + bruit's b/l LUNGS: Breath sounds clear to auscultation bilaterally and equal. No wheezes rales or rhonchi. HEART: Regular rate and rhythm without murmurs, rubs, gallops. ABDOMEN: Soft, nontender, nondistended abdomen. No guarding, no rebound. No masses appreciated. Normal bowel sounds present. No CVA tenderness bilaterally. Musculoskeletal: Ext b/l: FROM to passive/active. Strength 5+/5. No deficits noted. Extremities: No cyanosis, clubbing, or edema b/l. Peripheral pulses 2+. Capillary refill less than 3 seconds. NEUROLOGICAL: MMSE intact. Cranial nerves grossly intact. Normal speech, normal gait. Normal sensory, motor exams. Reflexes 2+ b/l. HALEY's negative. Pronator drift negative. Heel/ozuna, finger/nose wnl. PSYCH: Normal mood, normal affect. SKIN: Warm, Dry, normal turgor, no rashes or lesions noted. - INFECTION CONTROL TRAVEL OUTSIDE OF THE [place] IN LAST 30 DAYS: No - RESPIRATORY O2 Sat by Pulse Oximetry: 95 Course - Re-evaluation Re-evalutation: 02/15/17 21:04 Patient is an 81-year-old female presents the ED with elevated blood pressure that has improved since her initial arrival. Vitals are stable. PE otherwise unremarkable. Current blood pressure is 185/88 with a heart rate of 89 and oxygen saturation of 94%. Patient continues to be asymptomatic. Her CBC, CMP, cardiac enzymes, urine, CXR, and EKG show no acute pathology at this time. Heart score of 5, but based on history, she will have that score as her baseline . Reviewed with Dr. Claros who is in agreement with discharge/plan. I have a low suspicion for any ACS, PE, pneumothorax, pericarditis, dissection, and organ damage/failure, or other acute emergent process at this time. Advised patient to continue her home medications and routine monitoring of her blood pressure. Patient is aware that her condition can change from initial presentation and she needs to monitor symptoms closely and seek medical attention if any acute changes. Recheck with your PCM in 1-2 days. Return to the ED with any worsening/concerning symptoms otherwise as reviewed discharge. Patient is in agreement. - Vital Signs Vital signs: Temp Pulse Resp BP Pulse Ox 98.2 F 95 02/15/17 19:34 02/15/17 19:31 - Laboratory Result Diagrams: 02/15/17 19:45 02/15/17 19:45 Discharge - Discharge Clinical Impression: Elevated blood pressure reading Condition: Stable Disposition: HOME, SELF-CARE Instructions: High Blood Pressure ([facility]) Additional Instructions: Maintain adequate fluid intake Take home medications as directed Monitor your blood pressure routinely and keep a log Monitor symptoms closely for any acute changes Recheck with your PCM in 1-2 days Return to the ED with any worsening symptoms and/or development of fever, headache, chest pain, palpitations, syncope, shortness of breath, trouble breathing, abdominal pain, n/v/d, blood in stool/urine, loss of control of bowel /bladder, urinary retention, muscle weakness/paralysis, saddle anesthesia, numbness/tingling, or other worsening symptoms that are concerning to you. Forms: Elevated Blood Pressure, Smoking Cessation Education Referrals: RACHEL MEDRANO FNP [Primary Care Provider] - Follow up tomorrow
[2017-02-15 20:11] LABS: APPEARANCE,URINE CLEAR; BILIRUBIN,URINE NEGATIVE (NEGATIVE); GLUCOSE, URINE NEGATIVE (NEGATIVE); KETONES,URINE NEGATIVE (NEGATIVE); LEUKOCYTE ESTERASE,URINE TRACE (NEGATIVE); NITRITE,URINE NEGATIVE (NEGATIVE); PROTEIN,URINE 30 mg/dL (NEGATIVE); UROBILINOGEN,URINE NEGATIVE mg/dL (<2.0)
--- NOTE | 2017-02-15 20:16 | RADIOLOGY REPORT (SQ) ---
EXAM DESCRIPTION: CHEST SINGLE VIEW COMPLETED DATE/TIME: 02/15/2017 8:06 pm REASON FOR STUDY: elevated blood pressure COMPARISON: 10/15/2016 EXAM PARAMETERS: NUMBER OF VIEWS: One view. TECHNIQUE: Single frontal radiographic view of the chest acquired. RADIATION DOSE: NA LIMITATIONS: None. FINDINGS: LUNGS AND PLEURA: No opacities, masses or pneumothorax. No pleural effusion. MEDIASTINUM AND HILAR STRUCTURES: No masses. Contour normal. HEART AND VASCULAR STRUCTURES: Heart normal in size. Normal vasculature. BONES: No acute findings. HARDWARE: None in the chest. OTHER: No other significant finding. IMPRESSION: NO ACUTE RADIOGRAPHIC FINDING IN THE CHEST. TECHNICAL DOCUMENTATION: JOB ID: [id number]
[2017-02-15 20:18] LABS: ABSOLUTE BASOPHILS # (AUTO) 0.1 10^3/uL (0.0-0.2); ABSOLUTE EOSINOPHILS # (AUTO) 0.1 10^3/uL (0.0-0.6); ABSOLUTE LYMPHOCYTES (AUTO) 1.9 10^3/uL (0.5-4.7); ABSOLUTE MONOCYTES (AUTO) 0.4 10^3/uL (0.1-1.4); ABSOLUTE NEUT (AUTO) 4.9 10^3/uL (1.7-8.2); BASOPHILS % (AUTO) 0.8 % (0-2); EOSINOPHILS % (AUTO) 1.7 % (0-6); HEMATOCRIT 37.6 % (36.0-47.0); HEMOGLOBIN 12.5 g/dL (12.0-15.5); HGB HCT DIFFERENCE -0.1; LYMPHOCYTES % (AUTO) 25.4 % (13-45); MEAN CORPUSCULAR HEMOGLOBIN 29.2 pg (27.0-33.4); MEAN CORPUSCULAR HGB CONC 33.1 g/dL (32.0-36.0); MEAN CORPUSCULAR VOLUME 88 fl (80-97); MONOCYTES % (AUTO) 5.5 % (3-13); RED BLOOD COUNT 4.27 10^6/uL (3.72-5.28); RED CELL DISTRIBUTION WIDTH 14.3 % (11.5-14.0); SEGMENTED NEUTROPHILS % (AUTO) 66.6 % (42-78); WHITE BLOOD COUNT 7.4 10^3/uL (4.0-10.5)
[2017-02-15 20:24] LABS: ALANINE AMINOTRANSFERASE 29 U/L (9-52); ALBUMIN 4.3 g/dL (3.5-5.0); ALKALINE PHOSPHATASE 63 U/L (38-126); ANION GAP 11 (5-19); ASPARTATE AMINO TRANSFERASE 27 U/L (14-36); BILIRUBIN,DIRECT 0.4 mg/dL (0.0-0.4); BILIRUBIN,TOTAL 0.5 mg/dL (0.2-1.3); BLOOD UREA NITROGEN 28 mg/dL (7-20); CALCIUM 9.7 mg/dL (8.4-10.2); CARBON DIOXIDE 28 mmol/L (22-30); CHLORIDE 101 mmol/L (98-107); CREATINE KINASE 48 U/L (30-135); CREATININE RESULT 1.08 mg/dL (0.52-1.25); GLUCOSE 100 mg/dL (75-110); POTASSIUM 4.5 mmol/L (3.6-5.0); SODIUM 139.6 mmol/L (137-145); TOTAL PROTEIN 6.8 g/dL (6.3-8.2)
[2017-02-15 20:36] LABS: CREATINE KINASE MB 1.58 ng/mL (<4.55); TROPONIN I 0.022 ng/mL
[2017-02-15 21:24] VITALS: BP 174/98
--- NOTE | 2017-02-16 16:39 | EKG REPORT ---
SEVERITY:- ABNORMAL ECG - SINUS RHYTHM PROBABLE LEFT VENTRICULAR HYPERTROPHY BORDERLINE T ABNORMALITIES, INFERIOR LEADS : Confirmed by: Eunice Servin 16-Feb-2017 16:38:12
== END 2017-02-15 21:41 | disposition home or self-care (01) ==
LOC: ER 19:01
DX: R03.0 Elevated blood-pressure reading, without diagnosis of hypertension (principal); Z86.73 Personal history of transient ischemic attack (TIA), and cerebral infarction without residual deficits; I25.2 Old myocardial infarction; I25.10 Atherosclerotic heart disease of native coronary artery without angina pectoris; F17.200 Nicotine dependence, unspecified, uncomplicated; M25.511 Pain in right shoulder; M25.512 Pain in left shoulder; M54.2 Cervicalgia; Z79.899 Other long term (current) drug therapy
CPT/HCPCS: 36415; 71010; 80053; 81001; 82550; 82553; 84484; 85025; 93005; 93010; 99285

== ENCOUNTER → 2017-03-01 | Outpatient (CLI) | payer OTHER ==
[2017-03-01 12:48] LABS: ABSOLUTE BASOPHILS # (AUTO) 0.1 10^3/uL (0.0-0.2); ABSOLUTE EOSINOPHILS # (AUTO) 0.1 10^3/uL (0.0-0.6); ABSOLUTE LYMPHOCYTES (AUTO) 1.4 10^3/uL (0.5-4.7); ABSOLUTE MONOCYTES (AUTO) 0.4 10^3/uL (0.1-1.4); ABSOLUTE NEUT (AUTO) 4.5 10^3/uL (1.7-8.2); BASOPHILS % (AUTO) 0.9 % (0-2); EOSINOPHILS % (AUTO) 1.7 % (0-6); HEMATOCRIT 35.9 % (36.0-47.0); HEMOGLOBIN 12.3 g/dL (12.0-15.5); LYMPHOCYTES % (AUTO) 21.5 % (13-45); MEAN CORPUSCULAR HGB CONC 34.2 g/dL (32.0-36.0); MEAN CORPUSCULAR VOLUME 88 fl (80-97); MONOCYTES % (AUTO) 6.9 % (3-13); RED BLOOD COUNT 4.09 10^6/uL (3.72-5.28); RED CELL DISTRIBUTION WIDTH 14.2 % (11.5-14.0); WHITE BLOOD COUNT 6.5 10^3/uL (4.0-10.5)
[2017-03-01 13:06] LABS: ALBUMIN 3.8 g/dL (3.5-5.0); ANION GAP 8 (5-19); BLOOD UREA NITROGEN 29 mg/dL (7-20); CALCIUM 9.7 mg/dL (8.4-10.2); CARBON DIOXIDE 31 mmol/L (22-30); CHLORIDE 101 mmol/L (98-107); CREATININE RESULT 0.97 mg/dL (0.52-1.25); GLUCOSE 78 mg/dL (75-110); POTASSIUM 4.3 mmol/L (3.6-5.0); SODIUM 140.4 mmol/L (137-145)
== END ==
LOC: OD 11:30
PROVIDERS: ATTEND Internal Medicine Nephrology
DX: N18.3 Chronic kidney disease, stage 3 (moderate) (principal); N25.81 Secondary hyperparathyroidism of renal origin
CPT/HCPCS: 36415; 80048; 82040; 83970; 85025

== ENCOUNTER 2017-06-04 22:58 | Emergency (ER) | payer OTHER ==
[2017-06-04] MEDS ORDERED: LIDOCAINE 1%/EPINEPHRINE INJ 20 ML VIAL INJ ONE (23:10)
[2017-06-04] MEDS ORDERED: DIPH/PERTUSS(ACELL)/TETANUS VAC/PF 0.5 ML SYR (>=10YO) IM ONE (23:23)
--- NOTE | 2017-06-04 23:26 | ER Document Report ---
ED General - General Chief Complaint: Laceration Stated Complaint: HAND LACERATION Time Seen by Provider: 06/04/17 23:05 Notes: Patient is an 81-year-old female presents with complaint of laceration to her hand. Patient says that she was using a folding roller when it collapsed and cut her hand. She says was a wooden ruler. She has a small laceration to the palmar aspect of her hand. She is on Plavix. Paramedics applied quick clot calls. She just has small skin capillary bleeding at this time. She denies dizziness or lightheadedness. She has no other complaints at this time. She is unsure when her last tetanus shot was. TRAVEL OUTSIDE OF THE [place] IN LAST 30 DAYS: No - Related Data Allergies/Adverse Reactions: prednisone [Prednisone] Allergy (Unknown, Verified 01/15/16 20:44) cephalexin [Cephalexin] Allergy (Verified 01/15/16 20:44) Cephalosporins Allergy (Verified 02/09/16 14:47) ciprofloxacin [From Cipro] Allergy (Verified 01/15/16 20:44) cortisone [Cortisone] Allergy (Verified 01/15/16 20:44) Penicillins Allergy (Verified 02/09/16 14:47) phenazopyridine [Phenazopyridine] Allergy (Verified 01/15/16 20:44) sulfamethoxazole [From Bactrim] Allergy (Verified 01/15/16 20:44) tramadol HCl [From Ultram] Allergy (Verified 01/15/16 20:44) trimethoprim [From Bactrim] Allergy (Verified 01/15/16 20:44) Past Medical History - Social History Smoking Status: Current Every Day Smoker Chew tobacco use (# tins/day): No Frequency of alcohol use: None Drug Abuse: None Family History: Reviewed & Not Pertinent, DM, Hypertension Patient has suicidal ideation: No Patient has homicidal ideation: No - Past Medical History Cardiac Medical History: Reports: Hx Heart Attack - 10/2014, Hx Hypercholesterolemia, Hx Hypertension Pulmonary Medical History: Reports: Hx Asthma, Hx COPD, Hx Pneumonia Neurological Medical History: Reports: 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 , speech deficit Renal/ Medical History: Denies: Hx Peritoneal Dialysis Malignancy Medical History: Reports: Hx Skin Cancer GI Medical History: Reports: Hx Crohn's Disease, Hx Gastroesophageal Reflux Disease, Hx Hiatal Hernia, Hx Ulcer, Hx Ulcerative Colitis Musculoskeltal Medical History: Reports Hx Arthritis Psychiatric Medical History: Reports: Hx Depression Past Surgical History: Reports: Hx Abdominal Surgery - umbilical hernia, Hx Cardiac Catheterization - stent x 2, Hx Cardiac Surgery - Stent, Hx Coronary Stent - Immunizations Hx Diphtheria, Pertussis, Tetanus Vaccination: Yes Hx Pneumococcal Vaccination: 07/08/11 Review of Systems - Review of Systems Notes: My Normal Review Basic REVIEW OF SYSTEMS: CONSTITUTIONAL : Denies fever, chills, or sweats. Denies recent illness. RESPIRATORY: Denies cough, cold, or chest congestion. Denies shortness of breath, difficulty breathing. MUSCULOSKELETAL: No pain to hand except for location of laceration. SKIN: Denies rash or skin lesions. HEMATOLOGIC : On Plavix. NEUROLOGICAL: Denies sensory or motor loss. ALL OTHER SYSTEMS REVIEWED AND NEGATIVE. Physical Exam - Vital signs Vitals: Temp Pulse Resp BP Pulse Ox 98 F 69 18 196/76 H 93 06/04/17 22:59 06/04/17 22:59 06/04/17 22:59 06/04/17 22:59 06/04/17 22:59 - Notes Notes: General Appearance: Well nourished, alert, cooperative, no acute distress, no obvious discomfort. Well-appearing. Vitals: reviewed, See vital signs table. Eyes: PERRL, EOMI, Conjuctiva clear Mouth: No decreasd moisture Extremities: strength 5/5 in all extremities, good pulses in all extremities, minimal tenderness only at location of cut. Small capillary oozing from skin. Cut his stellate and only 1 cm. Just good flexion-extension of the fingers without difficulty. Normal capillary refill., . Skin: warm, dry, appropriate color, no rash Neuro: speech clear, oriented x 3, normal affect, responds appropriately to questions. Distal sensation intact. Course - Re-evaluation Re-evalutation: 06/04/17 23:58 When I went to suture the patient's hands she starts to me that she wanted something for her nausea. I asked her what she meant by her nausea. Patient says that she has been nauseous all day and feels like her stomach gurgling. She says she sometimes gets nausea. She has a history of squamous cell carcinoma but says she is not currently in chemotherapy. She will see her oncologist tomorrow. She denies any true abdominal pain. She denies any fevers. States she has not yet been vomiting but has felt like she was close to it today. Asked patient if she wants us to do workup at this time and I recommend that we do being that she is 81 years old. Patient agrees to some blood work. Patient does have some wheezing on reevaluation and oxygen saturation is anywhere from 89-92% on room air. Patient says she does wear oxygen at night at home. I will give her one breathing treatment. She is still smoker. She does have some scattered wheezing. She is in no distress and otherwise looks well. 06/05/17 00:23 Patient's blood pressure is high and she is due for her hydralazine. I did order. Patient does not want to take her hydralazine and says she will take hydralazine she has with her. She does have 50 mg hydralazine with her. I will discontinue my orders the patient will take her own medication. 06/05/17 05:40 Patient's blood pressure did improve after receive the hydralazine. Her nausea is much improved with the Zofran. Her laboratory evaluation is unremarkable. She has no abdominal pain. She does have history of coronary disease and therefore did obtain EKG and cardiac enzymes to make sure they were normal being that she has had nausea all day. These were all within normal range. She looks well and feels improved. Informed her to return to ER if she has chest pain, worsening nausea, vomiting, fevers, abdominal pain, or any redness or swelling to her hand. I informed her she is ever since stitches removed in 7 days. Patient agrees with plan will be discharged home. Dictation of this chart was performed using voice recognition software; therefore, there may be some unintended grammatical errors. - Vital Signs Vital signs: Temp Pulse Resp BP Pulse Ox 98 F 69 18 151/83 H 96 06/04/17 22:59 06/04/17 22:59 06/05/17 05:01 06/05/17 05:01 06/05/17 05:01 - Laboratory Result Diagrams: 06/05/17 00:25 06/05/17 00:25 Laboratory results interpreted by me: 06/05/17 06/05/17 00:25 00:25 Hgb 11.3 L Hct 33.2 L Carbon Dioxide 34 H BUN 26 H Est GFR (Non-Af Amer) 58 L Glucose 127 H Total Protein 5.6 L - EKG Interpretation by Me Additional EKG results interpreted by me: 06/05/17 01:48 EKG is reviewed and interpreted by me. EKG shows normal sinus rhythm with rate of [address] segment elevation. She does have some ST segment depression in the lateral and lateral precordial leads which is unchanged comparison to February 15, 2017. AL interval is within normal range. QRS duration is slightly prolonged. QTc interval is normal. Procedures - Laceration/Wound Repair right hand Wound length (cm): 1 Wound's Depth, Shape: Stellate Laceration pre-procedure: Emmanuelle applied Anesthetic type: 1% Lidocaine w/epi Volume Anesthetic (mLs): 1 Irrigated w/ Saline (mLs): 30 Wound Repaired With: Sutures Suture Size/Type: 5:0, Ethilon Number of Sutures: 2 Complications: No Discharge - Discharge Clinical Impression: Tobacco abuse, Nausea Hand laceration Qualifiers: Encounter type: initial encounter Foreign body presence: without foreign body Laterality: right Qualified Code(s): S61.411A - Laceration without foreign body of right hand, initial encounter Hypertension Qualifiers: Hypertension type: unspecified Qualified Code(s): I10 - Essential (primary) hypertension Condition: Good Disposition: HOME, SELF-CARE Additional Instructions: Please follow up with your oncologist today as scheduled. Please clean your hand with soap and water daily. Please follow up with your doctor or the ER in 7 days to have your sutures removed. Please return to the ER immediately if you have chest pain, vomiting, abdominal pain, fevers, or feel unwell. Please consider quiting smoking.
[2017-06-04] MEDS ORDERED: IPRATROPIUM/ALBUTEROL 0.5-2.5 MG/3 ML AMPUL NEB ONE (23:45)
[2017-06-04] MEDS ORDERED: ONDANSETRON 4 MG TAB.RAPDIS PO ONE (23:45)
[2017-06-05] MEDS ORDERED: HYDRALAZINE HCL 50 MG TABLET PO ONE (00:05)
[2017-06-05 00:52] LABS: ABSOLUTE BASOPHILS # (AUTO) 0.1 10^3/uL (0.0-0.2); ABSOLUTE EOSINOPHILS # (AUTO) 0.1 10^3/uL (0.0-0.6); ABSOLUTE LYMPHOCYTES (AUTO) 1.8 10^3/uL (0.5-4.7); ABSOLUTE MONOCYTES (AUTO) 0.5 10^3/uL (0.1-1.4); ABSOLUTE NEUT (AUTO) 4.2 10^3/uL (1.7-8.2); BASOPHILS % (AUTO) 1.1 % (0-2); EOSINOPHILS % (AUTO) 1.7 % (0-6); HEMATOCRIT 33.2 % (36.0-47.0); HEMOGLOBIN 11.3 g/dL (12.0-15.5); HGB HCT DIFFERENCE 0.7; LYMPHOCYTES % (AUTO) 26.7 % (13-45); MEAN CORPUSCULAR HEMOGLOBIN 29.9 pg (27.0-33.4); MEAN CORPUSCULAR HGB CONC 34.1 g/dL (32.0-36.0); MEAN CORPUSCULAR VOLUME 88 fl (80-97); MONOCYTES % (AUTO) 7.5 % (3-13); RED BLOOD COUNT 3.79 10^6/uL (3.72-5.28); WHITE BLOOD COUNT 6.7 10^3/uL (4.0-10.5)
[2017-06-05 01:04] LABS: ALANINE AMINOTRANSFERASE 29 U/L (9-52); ALBUMIN 3.5 g/dL (3.5-5.0); ALKALINE PHOSPHATASE 52 U/L (38-126); ANION GAP 7 (5-19); ASPARTATE AMINO TRANSFERASE 19 U/L (14-36); BILIRUBIN,DIRECT 0.4 mg/dL (0.0-0.4); BILIRUBIN,TOTAL 0.4 mg/dL (0.2-1.3); BLOOD UREA NITROGEN 26 mg/dL (7-20); CALCIUM 9.3 mg/dL (8.4-10.2); CARBON DIOXIDE 34 mmol/L (22-30); CHLORIDE 101 mmol/L (98-107); CREATININE RESULT 0.93 mg/dL (0.52-1.25); GLUCOSE 127 mg/dL (75-110); LIPASE 97.7 U/L (23-300); POTASSIUM 4.1 mmol/L (3.6-5.0); SODIUM 141.7 mmol/L (137-145); TOTAL PROTEIN 5.6 g/dL (6.3-8.2)
[2017-06-05] MEDS ORDERED: ONDANSETRON ODT 4 MG TAB (6 TAB/DSPK) PO PRN (02:20)
[2017-06-05 07:01] VITALS: BP 154/70
--- NOTE | 2017-06-05 08:21 | EKG REPORT ---
SEVERITY:- ABNORMAL ECG - SINUS RHYTHM NONSPECIFIC INTRAVENTRICULAR CONDUCTION DELAY PROBABLE LVH WITH SECONDARY REPOL ABNRM : Confirmed by: Saurabh Monroe MD 05-Jun-2017 08:19:58
== END 2017-06-05 06:55 | disposition home or self-care (01) ==
LOC: ER 22:58
PROC: 0HQFXZZ Repair Right Hand Skin, External Approach (ICD-10-PCS; principal; 2017-06-04)
DX: S61.411A Laceration without foreign body of right hand, initial encounter (principal); R11.0 Nausea; R06.2 Wheezing; F17.200 Nicotine dependence, unspecified, uncomplicated; W22.8XXA Striking against or struck by other objects, initial encounter; I10 Essential (primary) hypertension; J44.9 Chronic obstructive pulmonary disease, unspecified; E78.00 Pure hypercholesterolemia, unspecified; Z79.02 Long term (current) use of antithrombotics/antiplatelets; Z88.0 Allergy status to penicillin; Z88.3 Allergy status to other anti-infective agents; I25.2 Old myocardial infarction; I69.021 Dysphasia following nontraumatic subarachnoid hemorrhage
CPT/HCPCS: 93005; 94640; 99283; 90471; 36415; 83690; 85025; 80053; 84484; 90715; 93010; 12001; A9270 ×2; J3490; J7620; S0119

== ENCOUNTER → 2017-09-03 | Outpatient (CLI) | payer OTHER ==
[2017-09-03 10:26] LABS: ABSOLUTE BASOPHILS # (AUTO) 0.1 10^3/uL (0.0-0.2); ABSOLUTE EOSINOPHILS # (AUTO) 0.1 10^3/uL (0.0-0.6); ABSOLUTE LYMPHOCYTES (AUTO) 1.1 10^3/uL (0.5-4.7); ABSOLUTE MONOCYTES (AUTO) 0.3 10^3/uL (0.1-1.4); ABSOLUTE NEUT (AUTO) 4.7 10^3/uL (1.7-8.2); BASOPHILS % (AUTO) 0.9 % (0-2); EOSINOPHILS % (AUTO) 1.1 % (0-6); HEMATOCRIT 37.3 % (36.0-47.0); HEMOGLOBIN 12.2 g/dL (12.0-15.5); LYMPHOCYTES % (AUTO) 17.7 % (13-45); MEAN CORPUSCULAR HEMOGLOBIN 28.9 pg (27.0-33.4); MEAN CORPUSCULAR HGB CONC 32.8 g/dL (32.0-36.0); MEAN CORPUSCULAR VOLUME 88 fl (80-97); MONOCYTES % (AUTO) 5.5 % (3-13); PLATELET COUNT 217 10^3/uL (150-450); RED BLOOD COUNT 4.22 10^6/uL (3.72-5.28); RED CELL DISTRIBUTION WIDTH 13.5 % (11.5-14.0); SEGMENTED NEUTROPHILS % (AUTO) 74.8 % (42-78); TOTAL CELLS COUNTED % (AUTO) 100 %; WHITE BLOOD COUNT 6.2 10^3/uL (4.0-10.5)
[2017-09-03 10:41] LABS: APPEARANCE,URINE CLEAR; BILIRUBIN,URINE NEGATIVE (NEGATIVE); COLOR,URINE STRAW; GLUCOSE, URINE NEGATIVE (NEGATIVE); KETONES,URINE NEGATIVE (NEGATIVE); LEUKOCYTE ESTERASE,URINE NEGATIVE (NEGATIVE); NITRITE,URINE NEGATIVE (NEGATIVE); PROTEIN,URINE 30 mg/dL (NEGATIVE); URINE SPECIFIC GRAVITY 1.006; UROBILINOGEN,URINE NEGATIVE mg/dL (<2.0)
[2017-09-03 10:46] LABS: ALBUMIN 4.2 g/dL (3.5-5.0); ANION GAP 10 (5-19); BLOOD UREA NITROGEN 20 mg/dL (7-20); CALCIUM 9.7 mg/dL (8.4-10.2); CARBON DIOXIDE 33 mmol/L (22-30); CHLORIDE 100 mmol/L (98-107); GLUCOSE 99 mg/dL (75-110); PHOSPHORUS 3.5 mg/dL (2.5-4.5); POTASSIUM 4.5 mmol/L (3.6-5.0); SODIUM 142.7 mmol/L (137-145)
[2017-09-04 09:39] LABS: CREATININE URINE 25.2 mg/dL (Not Estab.)
== END ==
LOC: OD 09:20
PROVIDERS: ATTEND Internal Medicine Nephrology
DX: N18.3 Chronic kidney disease, stage 3 (moderate) (principal); R80.9 Proteinuria, unspecified; N25.81 Secondary hyperparathyroidism of renal origin
CPT/HCPCS: 36415; 80048; 81001; 82040; 82043; 82306; 82570; 83970; 84100; 85025

== ENCOUNTER 2017-10-04 23:06 | Observation (INO) | payer OTHER, MEDICARE ==
[2017-10-04] MEDS ORDERED: ASPIRIN 81 MG TABLET, CHEWABLE PO ONE (23:23)
--- NOTE | 2017-10-04 23:28 | ER Document Report ---
ED Respiratory Problem - General Chief Complaint: Palpitations Stated Complaint: IRREGULAR HEART RATE,SHORT OF BREATH Time Seen by Provider: 10/04/17 23:22 Notes: History of complain-81 years old female with a history of atrial fibrillation, presents with another episode of rapid palpitation after smoking, at that time felt short of breath therefore called the EMS. EMS found with a heart rate of 80, was comfortable by the time they arrived. Subsequently brought her to the ED. She denies any precordial chest pain left arm numbness tingling tingling sensation nausea vomiting. Denies any fever chills or other constitutional symptoms. REVIEW OF SYSTEMS: CONSTITUTIONAL : Denies fever, chills, or sweats. Denies recent illness. EENT: Denies eye, ear, throat, or mouth pain or symptoms. Denies nasal or sinus congestion or discharge. Denies throat, tongue, or mouth swelling or difficulty swallowing. CARDIOVASCULAR: Denies chest pain. Denies palpitations or racing or irregular heart beat. Denies ankle edema. RESPIRATORY: Denies cough, cold, or chest congestion. GASTROINTESTINAL: Denies abdominal pain or distention. Denies nausea, vomiting , or diarrhea. Denies blood in vomitus, stools, or per rectum. Denies black, tarry stools. Denies constipation. GENITOURINARY: Denies difficulty urinating, painful urination, burning, frequency, blood in urine, or discharge. FEMALE GENITOURINARY: Denies vaginal bleeding, heavy or abnormal periods, irregular periods. Denies vaginal discharge or odor. MUSCULOSKELETAL: Denies back or neck pain or stiffness. Denies joint pain or swelling. SKIN: Denies rash, lesions or sores. HEMATOLOGIC : Denies easy bruising or bleeding. LYMPHATIC: Denies swollen, enlarged glands. NEUROLOGICAL: Denies confusion or altered mental status. Denies passing out or loss of consciousness. Denies dizziness or lightheadedness. Denies headache. Denies weakness or paralysis or loss of use of either side. Denies problems with gait or speech. Denies sensory loss, numbness, or tingling. Denies seizures. PSYCHIATRIC: Denies anxiety or stress. Denies depression, suicidal ideation, or homicidal ideation. ALL OTHER SYSTEMS REVIEWED AND NEGATIVE. PHYSICAL EXAMINATION: GENERAL: Well-appearing, well-nourished and in no acute distress. Elderly female not seems to be in any acute distress. HEAD: Atraumatic, normocephalic. EYES: Pupils equal round and reactive to light, extraocular movements intact, conjunctiva are normal. ENT: Nares patent, oropharynx clear without exudates. Moist mucous membranes. NECK: Normal range of motion, supple without lymphadenopathy LUNGS: Breath sounds clear to auscultation bilaterally and equal. No wheezes rales or rhonchi. HEART: Regular rate and rhythm without murmurs ABDOMEN: Soft, nontender, nondistended abdomen. No guarding, no rebound. No masses appreciated. Female : deferred Musculoskeletal: Normal range of motion, no pitting or edema. No cyanosis. NEUROLOGICAL: Cranial nerves grossly intact. Normal speech, normal gait. Normal sensory, motor exams PSYCH: Normal mood, normal affect. SKIN: Warm, Dry, normal turgor, no rashes or lesions noted. Dictation was performed using [email or web address] voice recognition software TRAVEL OUTSIDE OF THE [place] IN LAST 30 DAYS: No - Related Data Allergies/Adverse Reactions: prednisone [Prednisone] Allergy (Unknown, Verified 01/15/16 20:44) cephalexin [Cephalexin] Allergy (Verified 01/15/16 20:44) Cephalosporins Allergy (Verified 02/09/16 14:47) ciprofloxacin [From Cipro] Allergy (Verified 01/15/16 20:44) cortisone [Cortisone] Allergy (Verified 01/15/16 20:44) Penicillins Allergy (Verified 02/09/16 14:47) phenazopyridine [Phenazopyridine] Allergy (Verified 01/15/16 20:44) sulfamethoxazole [From Bactrim] Allergy (Verified 01/15/16 20:44) tramadol HCl [From Ultram] Allergy (Verified 01/15/16 20:44) trimethoprim [From Bactrim] Allergy (Verified 01/15/16 20:44) Past Medical History - General Information source: Patient - Social History Smoking Status: Current Every Day Smoker Cigarette use (# per day): No Chew tobacco use (# tins/day): No Frequency of alcohol use: Rare Drug Abuse: None Lives with: Family Family History: Reviewed & Not Pertinent, DM, Hypertension - Past Medical History Cardiac Medical History: Reports: Hx Heart Attack - 10/2014, Hx Hypercholesterolemia, Hx Hypertension Pulmonary Medical History: Reports: Hx Asthma, Hx COPD, Hx Pneumonia Neurological Medical History: Reports: 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 , speech deficit Renal/ Medical History: Denies: Hx Peritoneal Dialysis Malignancy Medical History: Reports: Hx Skin Cancer GI Medical History: Reports: Hx Crohn's Disease, Hx Gastroesophageal Reflux Disease, Hx Hiatal Hernia, Hx Ulcer, Hx Ulcerative Colitis Musculoskeltal Medical History: Reports Hx Arthritis Psychiatric Medical History: Reports: Hx Depression Past Surgical History: Reports: Hx Abdominal Surgery - umbilical hernia, Hx Cardiac Catheterization - stent x 2, Hx Cardiac Surgery - Stent, Hx Coronary Stent - Immunizations Hx Diphtheria, Pertussis, Tetanus Vaccination: Yes Hx Pneumococcal Vaccination: 07/08/11 Review of Systems - Review of Systems Notes: As per history of complain Physical Exam - Vital signs Vitals: Resp Pulse Ox 20 98 10/04/17 23:13 10/04/17 23:13 Course - Vital Signs Vital signs: Temp Pulse Resp BP Pulse Ox 19 136/75 H 98 10/04/17 23:15 10/04/17 23:15 10/04/17 23:25 - Laboratory Result Diagrams: 10/04/17 23:40 10/04/17 23:40 Laboratory results interpreted by me: 10/04/17 10/04/17 23:40 23:40 Hgb 11.5 L Hct 34.9 L Carbon Dioxide 32 H BUN 42 H Est GFR ( Amer) 52 L Est GFR (Non-Af Amer) 43 L Glucose 113 H Total Bilirubin 0.1 L Total Protein 5.9 L - Diagnostic Test Radiology reviewed: Reports reviewed - Chest x-ray reported by radiologist as unremarkable - EKG Interpretation by [place] EKG shows normal: Sinus rhythm Rate: Normal - Converted back to normal sinus rhythm at the rate of 74 bpm normal axis no acute ST elevation ST depression T-wave inversion noted. Discharge - Discharge Clinical Impression: Rapid atrial fibrillation, Elevated troponin Condition: Fair Disposition: ADMITTED INPATIENT Admitting Provider: Hospitalist Unit Admitted: Telemetry Referrals: RACHEL MEDRANO FNP [Primary Care Provider] - Follow up as needed
[2017-10-04 23:49] LABS: ABSOLUTE BASOPHILS # (AUTO) 0.1 10^3/uL (0.0-0.2); ABSOLUTE EOSINOPHILS # (AUTO) 0.1 10^3/uL (0.0-0.6); ABSOLUTE LYMPHOCYTES (AUTO) 1.3 10^3/uL (0.5-4.7); ABSOLUTE MONOCYTES (AUTO) 0.4 10^3/uL (0.1-1.4); ABSOLUTE NEUT (AUTO) 5.1 10^3/uL (1.7-8.2); EOSINOPHILS % (AUTO) 0.9 % (0-6); HEMATOCRIT 34.9 % (36.0-47.0); HEMOGLOBIN 11.5 g/dL (12.0-15.5); LYMPHOCYTES % (AUTO) 18.7 % (13-45); MEAN CORPUSCULAR HEMOGLOBIN 28.9 pg (27.0-33.4); MEAN CORPUSCULAR HGB CONC 32.9 g/dL (32.0-36.0); MEAN CORPUSCULAR VOLUME 88 fl (80-97); PLATELET COUNT 214 10^3/uL (150-450); RED BLOOD COUNT 3.99 10^6/uL (3.72-5.28); RED CELL DISTRIBUTION WIDTH 13.6 % (11.5-14.0); SEGMENTED NEUTROPHILS % (AUTO) 73.4 % (42-78); TOTAL CELLS COUNTED % (AUTO) 100 %
[2017-10-05 00:09] LABS: ALANINE AMINOTRANSFERASE 24 U/L (9-52); ALBUMIN 3.9 g/dL (3.5-5.0); ALKALINE PHOSPHATASE 51 U/L (38-126); ANION GAP 9 (5-19); ASPARTATE AMINO TRANSFERASE 21 U/L (14-36); BILIRUBIN,DIRECT 0.1 mg/dL (0.0-0.4); BILIRUBIN,TOTAL 0.1 mg/dL (0.2-1.3); BLOOD UREA NITROGEN 42 mg/dL (7-20); CALCIUM 9.7 mg/dL (8.4-10.2); CARBON DIOXIDE 32 mmol/L (22-30); CHLORIDE 99 mmol/L (98-107); CREATINE KINASE 70 U/L (30-135); GLUCOSE 113 mg/dL (75-110); POTASSIUM 4.1 mmol/L (3.6-5.0); SODIUM 139.7 mmol/L (137-145); TOTAL PROTEIN 5.9 g/dL (6.3-8.2)
[2017-10-05 00:21] LABS: CREATINE KINASE MB 1.92 ng/mL (<4.55)
[2017-10-05 00:24] LABS: TROPONIN I 0.058 ng/mL
--- NOTE | 2017-10-05 01:07 | RADIOLOGY REPORT (SQ) ---
EXAM DESCRIPTION: CHEST SINGLE VIEW CLINICAL HISTORY: 81 years Female, Shortness of breath COMPARISON: 8.11.17 NUMBER OF VIEWS/TECHNIQUE: 1/AP LIMITATIONS: None. FINDINGS: Increased lung volume, clear parenchyma, normal cardiac silhouette, atherosclerosis, and intact bony thorax. IMPRESSION: No acute cardiopulmonary findings.
[2017-10-05] MEDS ORDERED: FLUTICASONE NASAL SPRAY 50 MCG/SPRY 120 SPRAY/16 GM NASL PRN (01:18)
[2017-10-05] MEDS ORDERED: METOPROLOL TARTRATE 25 MG TABLET PO ONE (01:18)
[2017-10-05] MEDS ORDERED: NORMAL SALINE 1000 ML 1,000 ML IV PRN ×2 (01:18→01:30)
[2017-10-05] MEDS ORDERED: IPRATROPIUM/ALBUTEROL 0.5-2.5 MG/3 ML AMPUL NEB PRN (01:23)
[2017-10-05] MEDS ORDERED: LACTULOSE SYRUP 20 GM/30 ML UDCUP PO ONE (02:58)
[2017-10-05] MEDS ORDERED: NA PHOS,M-B/NA PHOS,DI-BA (ADULT) 133 ML ENEMA PR ONE (02:58)
--- NOTE | 2017-10-05 03:59 | PDOC H&P ---
History of Present Illness Admission Date/PCP: 10/05/17 01:32 CARMELA RESENDIZ Patient complains of: Palpitations History of Present Illness: CINTHYA DANIELLE is a 81 year old female with a past medical history of COPD on home oxygen, asthma, COPD, coronary artery disease with CO 2, dyslipidemia, hypertension, ulcerative colitis, osteoarthritis, depression and atrial fibrillation. Patient presents with palpitations after smoking prompting a call to EMS which found A. fib with RVR in the 130s-140s and she was brought to the emergency room for evaluation where she was found to be in normal sinus rhythm in the 80s. She denies chest pain shortness of breath nausea vomiting. Patient is unclear about her home medication regiment. She denies fever or additional medications. In the emergency room she is found to be dehydrated, she receives IV fluids and referred the hospitalist for observation Past Medical History Cardiac Medical History: Reports: Myocardial Infarction - 10/2014, Hyperlipidema , Hypertension Pulmonary Medical History: Reports: Asthma, Chronic Obstructive Pulmonary Disease (COPD), Pneumonia Malignancy Medical History: Reports: Skin Cancer GI Medical History: Reports: Crohn's Disease, Gastroesophageal Reflux Disease, Hiatal Hernia, Ulcerative Colitis Musculoskeltal Medical History: Reports: Arthritis Psychiatric Medical History: Reports: Depression, Tobacco Dependency Past Surgical History Past Surgical History: Reports: Cardiac Catheterization - stent x 2, Coronary Stent Social History Information Source: Patient, [facility] Records Lives with: Family Smoking Status: Current Every Day Smoker Frequency of Alcohol Use: None Hx Recreational Drug Use: No Drugs: None Hx Prescription Drug Abuse: No - Advance Directive Resuscitation Status: Full Code Family History Family History: Reviewed & Not Pertinent, DM, Hypertension Parental Family History Reviewed: Yes Children Family History Reviewed: Yes Sibling(s) Family History Reviewed.: Yes Medication/Allergy Home Medications: Albuterol Sulfate [Ventolin 0.083% Neb 2.5 mg/3 mL Ampul] 3 ml NEB Q4HP PRN 05/24 Albuterol Sulfate [Ventolin HFA MDI 18 GM] 2 puff IH Q4HP PRN 10/16/16 Aspirin [Aspirin 81 mg Chewable Tablet] 81 mg PO DAILY 10/16/16 Cholecalciferol (Vitamin D3) [Vitamin D3] 2,000 unit PO DAILY 10/16/16 Citalopram Hydrobromide [Citalopram HBr] 10 mg PO DAILY 10/16/16 Dexlansoprazole [Dexilant 60 mg Capsule] 60 mg PO DAILY 10/16/16 Flaxseed Oil [Flax Seed Oil] 1,000 mg PO DAILY 10/16/16 Fluticasone Propionate [Flonase Nasal [place] 50 Mcg/[place] 16 gm] 2 spray NASL DAILYP PRN 10/16/16 Hydralazine HCl [Apresoline 50 mg Tablet] 50 mg PO Q8 10/16/16 Mesalamine [Lialda] 2.4 gm PO [id number] 10/16/16 Metoprolol Tartrate [Lopressor 50 mg Tablet] 50 mg PO Q12 10/16/16 Mometasone/Formoterol [Dulera 100 Mcg/5 Mcg Inhaler] 2 puff IH Q12 10/16/16 Nitroglycerin [Nitrostat] 0.4 mg SL Q5MP PRN 10/16/16 Rosuvastatin Calcium [Crestor 10 mg Tablet] 10 mg PO DAILY 10/16/16 Tiotropium [place] [Spiriva Handihaler 5 Cap/Kit (18 Mcg/Cap)] 1 puff IH DAILY 10/16/16 Ubidecarenone [Coenzyme Q10] 100 mg PO DAILY 10/16/16 Valsartan [Diovan 160 mg Tablet] 160 mg PO Q12 10/16/16 Vitamin B Complex [B Complex] 1 each PO DAILY 10/16/16 Doxycycline Hyclate 100 mg PO BID #16 capsule 10/18/16 Guaifenesin [Mucinex] 1,200 mg PO Q12 #12 tab.er.12h 10/18/16 Allergies/Adverse Reactions: prednisone [Prednisone] Allergy (Unknown, Verified 01/15/16 20:44) cephalexin [Cephalexin] Allergy (Verified 01/15/16 20:44) Cephalosporins Allergy (Verified 02/09/16 14:47) ciprofloxacin [From Cipro] Allergy (Verified 01/15/16 20:44) cortisone [Cortisone] Allergy (Verified 01/15/16 20:44) Penicillins Allergy (Verified 02/09/16 14:47) phenazopyridine [Phenazopyridine] Allergy (Verified 01/15/16 20:44) sulfamethoxazole [From Bactrim] Allergy (Verified 01/15/16 20:44) tramadol HCl [From Ultram] Allergy (Verified 01/15/16 20:44) trimethoprim [From Bactrim] Allergy (Verified 01/15/16 20:44) Review of Systems Constitutional: PRESENT: as per HPI, fatigue Eyes: ABSENT: visual disturbances Ears: ABSENT: hearing changes Cardiovascular: PRESENT: as per HPI, dyspnea on exertion, palpitations. ABSENT : edema, orthropnea Respiratory: PRESENT: as per HPI, dyspnea. ABSENT: hemoptysis, sputum Gastrointestinal: ABSENT: abdominal pain, constipation, diarrhea, hematemesis, hematochezia, nausea, vomiting Genitourinary: ABSENT: dysuria, hematuria Musculoskeletal: ABSENT: joint swelling Integumentary: ABSENT: rash, wounds Neurological: ABSENT: abnormal gait, abnormal speech, confusion, dizziness, focal weakness, syncope Psychiatric: PRESENT: anxiety, depression. ABSENT: homidical ideation, suicidal ideation Endocrine: ABSENT: cold intolerance, heat intolerance, polydipsia, polyuria Hematologic/Lymphatic: ABSENT: easy bleeding, easy bruising Physical Exam Vital Signs: Temp Pulse Resp BP Pulse Ox 15 148/72 H 98 10/05/17 03:01 10/05/17 03:01 10/05/17 03:01 General appearance: PRESENT: cooperative, disheveled, mild distress Head exam: PRESENT: atraumatic, normocephalic Eye exam: PRESENT: conjunctiva pink, EOMI, PERRLA. ABSENT: scleral icterus Ear exam: PRESENT: normal external ear exam Mouth exam: PRESENT: dry mucosa, tongue midline Neck exam: ABSENT: carotid bruit, JVD, lymphadenopathy, thyromegaly Respiratory exam: PRESENT: accessory muscle use, decreased breath sounds, symmetrical, tachypnea. ABSENT: rhonchi, stridor Cardiovascular exam: PRESENT: irregular rhythm. ABSENT: bradycardia, clicks, diastolic murmur Pulses: PRESENT: normal dorsalis pedis pul Vascular exam: PRESENT: normal capillary refill GI/Abdominal exam: PRESENT: normal bowel sounds, soft. ABSENT: distended, guarding, mass, organolmegaly, rebound, tenderness Rectal exam: PRESENT: deferred Extremities exam: PRESENT: full ROM. ABSENT: calf tenderness, clubbing, pedal edema Neurological exam: PRESENT: alert, awake, oriented to person, oriented to place , oriented to time, oriented to situation, CN II-XII grossly intact. ABSENT: motor sensory deficit Psychiatric exam: PRESENT: appropriate affect, normal mood. ABSENT: homicidal ideation, suicidal ideation Skin exam: PRESENT: dry, intact, warm. ABSENT: cyanosis, rash Results Impressions: Chest X-Ray 10/04/17 23:25 IMPRESSION: No acute cardiopulmonary findings. Assessment & Plan - Diagnosis (1) Rapid atrial fibrillation Is this a current diagnosis for this admission?: Yes Plan: Telemetry observation, resume outpatient regiment metoprolol versus diltiazem as needed (2) COPD (chronic obstructive pulmonary disease) Is this a current diagnosis for this admission?: Yes Plan: Incentive spirometry, flutter valve, Flomax, Xopenex nebulizer (3) Tobacco abuse Is this a current diagnosis for this admission?: Yes Plan: Tobacco Dependence patient received tobacco cessation counseling and offered nicotine replacement options (4) GERD (gastroesophageal reflux disease) Qualifiers: Esophagitis presence: without esophagitis Qualified Code(s): K21.9 - Gastro -esophageal reflux disease without esophagitis Is this a current diagnosis for this admission?: Yes Plan: Proton pump inhibitor - Time Time Spent: 30 to 50 Minutes
[2017-10-05] MEDS: IPRATROPIUM/ALBUTEROL 0.5-2.5 MG/3 ML AMPUL NEB SCH ×3 (07:44→23:16)
[2017-10-05] MEDS: DOCUSATE SODIUM 100 MG CAPSULE PO SCH ×2 (08:54→15:42)
[2017-10-05] MEDS ORDERED: FUROSEMIDE INJ/PF 40 MG/4 ML SDV ONE (09:01)
[2017-10-05] MEDS: METOPROLOL TARTRATE 50 MG TABLET PO SCH ×2 (09:12→21:54)
[2017-10-05] MEDS: LANSOPRAZOLE 30 MG TAB.RAP.DR PO SCH (09:12)
[2017-10-05] MEDS: CITALOPRAM HYDROBROMIDE 20 MG TABLET PO SCH (09:12)
[2017-10-05] MEDS ORDERED: ASPIRIN 81 MG TABLET, CHEWABLE PO SCH (10:00)
--- NOTE | 2017-10-05 10:24 | EKG REPORT ---
SEVERITY:- ABNORMAL ECG - SINUS RHYTHM ATRIAL PREMATURE COMPLEX NONSPECIFIC INTRAVENTRICULAR CONDUCTION DELAY NONSPECIFIC ST-T CHANGES LATERAL LEADS : Confirmed by: Saurabh Monroe MD 05-Oct-2017 10:23:41
[2017-10-05] MEDS ORDERED: DILTIAZEM HCL 30 MG TABLET PO ONE (13:45)
--- NOTE | 2017-10-05 13:45 | PDOC PROGRESS REPORT ---
Subjective Progress Note for:: 10/05/17 Subjective:: The patient is sleeping in her bed. She was quite irritated to be woken up. She told me she wants to go home. Apparently her sister is downstairs and has just been transitioned to comfort measures. Unfortunately when she ambulated with the nurse she developed rapid A. fib again and her O2 sats dropped into the mid 80s. I discussed with her son that she will likely need to stay here in the hospital for today. Review of systems could not be obtained from the patient because she did not want to talk to me. Reason For Visit: AFIB W RVR Physical Exam Vital Signs: Temp Pulse Resp BP Pulse Ox 97.6 F 87 18 182/69 H 98 10/05/17 07:37 10/05/17 07:47 10/05/17 07:47 10/05/17 07:37 10/05/17 07:47 Intake & Output 10/04/17 10/05/17 10/06/17 06:59 06:59 06:59 Weight 67.2 kg General appearance: PRESENT: thin, other - She is in no acute distress. She is sleeping and somewhat irritated at the time of my visit. Head exam: PRESENT: atraumatic, normocephalic Mouth exam: PRESENT: moist, tongue midline Respiratory exam: PRESENT: other - She has some fine crackles in the lower bases bilaterally. ABSENT: rales, rhonchi, wheezes Cardiovascular exam: PRESENT: irregular rhythm, other - With a controlled rate GI/Abdominal exam: PRESENT: normal bowel sounds, soft. ABSENT: distended, guarding, mass, organolmegaly, rebound, tenderness Rectal exam: PRESENT: deferred Extremities exam: PRESENT: full ROM. ABSENT: calf tenderness, clubbing, pedal edema Musculoskeletal exam: PRESENT: ambulatory Neurological exam: PRESENT: alert, awake, oriented to person, oriented to place , oriented to time, oriented to situation, CN II-XII grossly intact. ABSENT: motor sensory deficit Psychiatric exam: PRESENT: agitated, normal mood. ABSENT: homicidal ideation, suicidal ideation Skin exam: PRESENT: dry, intact, warm. ABSENT: cyanosis, rash Results Laboratory Results: 10/05/17 10/05/17 03:25 03:25 Troponin I 0.091 NT-Pro-B Natriuret Pep 2530 H Impressions: Chest X-Ray 10/04/17 23:25 IMPRESSION: No acute cardiopulmonary findings. Assessment & Plan - Diagnosis (1) Atrial fibrillation with rapid ventricular response Is this a current diagnosis for this admission?: Yes Plan: The patient had converted to a sinus rhythm however when she got up and ambulated she went back into rapid A. fib. We will start Cardizem 30 mg every 6 hours. (2) Acute on chronic combined systolic and diastolic CHF (congestive heart failure) Is this a current diagnosis for this admission?: Yes Plan: The patient has known systolic and diastolic congestive heart failure. She was given 2 L of fluid at the time of admission and her shortness of breath is worse. Her blood pressure is worse as well. Initially the patient refused to take Lasix today. She did agree to a one-time dose of IV Lasix. BNP is quite elevated. She will have a chemistry panel checked in the morning. I will repeat a chest x-ray in the morning as well. Also she has not had a 2D echocardiogram at this facility since early 2015. We will repeat her echo. (3) Acute and chronic respiratory failure ([id number]) Qualifiers: Respiratory failure complication: hypoxia Qualified Code(s): J96.21 - Acute and chronic respiratory failure with hypoxia Is this a current diagnosis for this admission?: Yes Plan: The patient usually only wears oxygen at night. Today when she got up and ambulated she dropped into the low 80s. This is likely due to decompensated heart failure. Continue IV diuresis. (4) COPD (chronic obstructive pulmonary disease) Is this a current diagnosis for this admission?: Yes Plan: No evidence of exacerbation (5) Depression Is this a current diagnosis for this admission?: Yes Plan: Continue home regimen (6) Anemia Is this a current diagnosis for this admission?: Yes Plan: This is an anemia of chronic disease and is stable. (7) Tobacco abuse Is this a current diagnosis for this admission?: Yes Plan: Certainly would be in her best interest to not smoke at this point. (8) CAD (coronary artery disease) Qualifiers: Coronary Disease-Associated Artery/Lesion type: unspecified vessel or lesion type [place] vs. transplanted heart: [place] heart Associated angina: angina presence unspecified Qualified Code(s): I25.10 - Atherosclerotic heart disease of [place] coronary artery without angina pectoris Is this a current diagnosis for this admission?: Yes Plan: She will continue her home regimen for now. An echocardiogram has been ordered. We will follow-up with those results. We may need to get cardiology involved. (9) History of CVA (cerebrovascular accident) Is this a current diagnosis for this admission?: Yes Plan: She was started on low-dose aspirin last night. The patient actually takes Plavix at home. We will stop the aspirin and continue the Plavix for now. (10) Hyperlipidemia Qualifiers: Hyperlipidemia type: unspecified Qualified Code(s): E78.5 - Hyperlipidemia , unspecified Is this a current diagnosis for this admission?: Yes Plan: She will continue her statin medication (11) Ulcerative colitis Is this a current diagnosis for this admission?: Yes Plan: No evidence of flare (12) Full code status Is this a current diagnosis for this admission?: Yes - Time Time Spent with patient: 25-34 minutes - Inpatient Certification Medical Necessity: Other - Inpatient hospitalization remains necessary. The patient dropped her oxygen saturations when walking and developed rapid A. fib again. She needs titration of her medications. She is requiring parenteral therapies. She needs a repeat echocardiogram to evaluate her heart function. Timing of disposition will be determined by her clinical course
[2017-10-05] MEDS ORDERED: CLOPIDOGREL BISULFATE 75 MG TABLET PO ONE (14:00)
[2017-10-05] MEDS ORDERED: VALSARTAN 160 MG TABLET PO ONE (14:00)
[2017-10-05] MEDS: DILTIAZEM HCL 30 MG TABLET PO SCH ×2 (17:26→23:19)
--- NOTE | 2017-10-05 19:51 | XCELERA REPORT ---
[address] [address] Transthoracic Echocardiogram Report Name: CINTHYA DANIELLE Age: 81 yrs Gender: Female : 1935 Patient Status: Inpatient Patient Location: [address] [place] [address] Study Date: 10/05/2017 04:41 PM Height: 66 in Weight: 148 lb BSA: 1.8 m2 Procedure: A complete two-dimensional transthoracic echocardiogram was performed (2D, M-mode, spectral and color flow Doppler). The study was technically adequate with some images being suboptimal in quality. Reason For Study: chf, afib Ordering Physician: EMILIANO RAZO Performed By: Zoe Monroe Interpretation Summary The left ventricular ejection fraction is within normal limits. Doppler measurements suggest pseudonormalized left ventricular relaxation, which is associated with grade II/IV or mild to moderate diastolic dysfunction There is mild concentric left ventricular hypertrophy. The left ventricle is grossly normal size. Wall motion cannot be accurately commented on, but no definite regional wall motion abnormalities noted. The right ventricular systolic function is normal. The right ventricle is grossly normal size. The right atrium is normal. The left atrial size is normal. There is a trace to mild amount of mitral regurgitation There is no mitral valve stenosis. No aortic regurgitation is present. There is no aortic valve stenosis Tricuspid regurgitation jet envelope not well defined to measure RV systolic pressure accurately. There is a trace or physiologic amount of tricuspid regurgitation The aortic root is not well visualized but is probably normal size. The inferior vena cava was not well visualized There is no pericardial effusion. MMode/2D Measurements & Calculations RVDd: 3.3 cm LVIDd: 5.6 cm FS: 34.3 % Ao root diam: 2.8 cm IVSd: 1.0 cm LVIDs: 3.7 cm EDV(Teich): 154.0 ml LVPWd: 1.1 cm ESV(Teich): 57.5 ml Ao root area: 6.3 cm2 EF(Teich): 62.7 % LA dimension: 3.3 cm Doppler Measurements & Calculations MV E max samson: MV P1/2t max samson: Ao V2 max: LV V1 max P.6 cm/sec 103.7 cm/sec 156.7 cm/sec 5.1 mmHg MV A max samson: MV P1/2t: 58.1 msec Ao max PG: LV V1 max: 108.1 cm/sec 9.8 mmHg 113.0 cm/sec MV E/A: 0.97 MVA(P1/2t): 3.8 cm2 MV dec slope: 522.5 cm/sec2 PA V2 max: 87.6 cm/sec PA max P.1 mmHg Left Ventricle The left ventricle is grossly normal size. There is mild concentric left ventricular hypertrophy. The left ventricular ejection fraction is within normal limits. Doppler measurements suggest pseudonormalized left ventricular relaxation, which is associated with grade II/IV or mild to moderate diastolic dysfunction. Wall motion cannot be accurately commented on, but no definite regional wall motion abnormalities noted. Right Ventricle The right ventricle is grossly normal size. There is normal right ventricular wall thickness. The right ventricular systolic function is normal. Atria The right atrium is normal. The left atrial size is normal. Interarterial septum not well visualized and not well dopplered. Cannot comment on ASD/PFO presence. Mitral Valve The mitral valve is grossly normal. There is no mitral valve stenosis. There is a trace to mild amount of mitral regurgitation. Aortic Valve The aortic valve is grossly normal. There is no aortic valve stenosis. No aortic regurgitation is present. Tricuspid Valve The tricuspid valve is not well visualized, but is grossly normal. There is no tricuspid stenosis. There is a trace or physiologic amount of tricuspid regurgitation. Tricuspid regurgitation jet envelope not well defined to measure RV systolic pressure accurately. Pulmonic Valve The pulmonic valve is not well visualized. Great Vessels The aortic root is not well visualized but is probably normal size. The inferior vena cava was not well visualized. Effusions There is no pericardial effusion. : EMILIANO RAZO > Eunice Servin
[2017-10-05] MEDS ORDERED: TRAZODONE HCL 50 MG TABLET PO ONE (21:30)
[2017-10-05] MEDS: VALSARTAN 160 MG TABLET PO SCH (21:54)
[2017-10-05] MEDS ORDERED: ATORVASTATIN CALCIUM 20 MG TABLET PO SCH (22:00)
[2017-10-06] MEDS: DILTIAZEM HCL 30 MG TABLET PO SCH (05:09)
[2017-10-06 06:22] LABS: ABSOLUTE EOSINOPHILS # (AUTO) 0.1 10^3/uL (0.0-0.6); ABSOLUTE LYMPHOCYTES (AUTO) 1.8 10^3/uL (0.5-4.7); ABSOLUTE MONOCYTES (AUTO) 0.4 10^3/uL (0.1-1.4); ABSOLUTE NEUT (AUTO) 2.6 10^3/uL (1.7-8.2); BASOPHILS % (AUTO) 0.8 % (0-2); EOSINOPHILS % (AUTO) 2.2 % (0-6); HEMOGLOBIN 10.8 g/dL (12.0-15.5); LYMPHOCYTES % (AUTO) 37.1 % (13-45); MEAN CORPUSCULAR HEMOGLOBIN 29.5 pg (27.0-33.4); MEAN CORPUSCULAR HGB CONC 33.9 g/dL (32.0-36.0); MEAN CORPUSCULAR VOLUME 87 fl (80-97); MONOCYTES % (AUTO) 7.6 % (3-13); PLATELET COUNT 170 10^3/uL (150-450); RED BLOOD COUNT 3.67 10^6/uL (3.72-5.28); RED CELL DISTRIBUTION WIDTH 13.6 % (11.5-14.0); SEGMENTED NEUTROPHILS % (AUTO) 52.3 % (42-78); TOTAL CELLS COUNTED % (AUTO) 100 %; WHITE BLOOD COUNT 4.9 10^3/uL (4.0-10.5)
[2017-10-06 06:50] LABS: ANION GAP 5 (5-19); BLOOD UREA NITROGEN 27 mg/dL (7-20); CALCIUM 9.2 mg/dL (8.4-10.2); CARBON DIOXIDE 35 mmol/L (22-30); CHLORIDE 103 mmol/L (98-107); CREATINE KINASE 55 U/L (30-135); GLUCOSE 89 mg/dL (75-110); POTASSIUM 3.7 mmol/L (3.6-5.0); SODIUM 142.9 mmol/L (137-145)
[2017-10-06] MEDS ORDERED: FUROSEMIDE INJ/PF 20 MG/2 ML SDV IV ONE (06:52)
[2017-10-06 07:01] LABS: CREATINE KINASE MB 1.25 ng/mL (<4.55); TROPONIN I 0.039 ng/mL
[2017-10-06] MEDS: IPRATROPIUM/ALBUTEROL 0.5-2.5 MG/3 ML AMPUL NEB SCH (07:43)
[2017-10-06] MEDS: CITALOPRAM HYDROBROMIDE 20 MG TABLET PO SCH (09:31)
[2017-10-06] MEDS: METOPROLOL TARTRATE 50 MG TABLET PO SCH (09:31)
[2017-10-06] MEDS: VALSARTAN 160 MG TABLET PO SCH (09:32)
[2017-10-06] MEDS: DOCUSATE SODIUM 100 MG CAPSULE PO SCH (09:32)
[2017-10-06] MEDS: LANSOPRAZOLE 30 MG TAB.RAP.DR PO SCH (09:32)
[2017-10-06] MEDS ORDERED: CLOPIDOGREL BISULFATE 75 MG TABLET PO SCH (10:00)
--- NOTE | 2017-10-06 12:00 | RADIOLOGY REPORT (SQ) ---
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 TECHNIQUE: Single frontal radiographic view of the chest acquired. LIMITATIONS: None. FINDINGS: LUNGS AND PLEURA: No opacities, masses or pneumothorax. No pleural effusion. MEDIASTINUM AND HILAR STRUCTURES: No masses. Contour normal. HEART AND VASCULAR STRUCTURES: Heart enlarged without failure. Normal vasculature. BONES: No acute findings. HARDWARE: None in the chest. OTHER: No other significant finding. IMPRESSION: HEART ENLARGED WITHOUT FAILURE. NO OTHER SIGNIFICANT RADIOGRAPHIC FINDING IN THE CHEST. TECHNICAL DOCUMENTATION: JOB ID: [id number] [email or web address]- All Rights Reserved Reading location - IP/workstation name: [email or web address]
[2017-10-06 12:21] VITALS: BP 150/61
--- NOTE | 2017-10-06 12:25 | PDOC CONSULTATION ---
Consultation Consult Date: 10/06/17 Attending physician:: EMILIANO RAZO Consult reason:: Paroxysmal atrial fibrillation History of Present Illness Admission Date/PCP: 10/05/17 01:32 CARMELA RESENDIZ Patient complains of: Shortness of breath History of Present Illness: CINTHYA DANIELLE is a 81 year old female with a past medical history of COPD on home oxygen, asthma, COPD, coronary artery disease with [place] 2, dyslipidemia, hypertension, ulcerative colitis, osteoarthritis, depression and atrial fibrillation. Patient presents with palpitations after smoking prompting a call to EMS which found A. fib with RVR in the 130s-140s and she was brought to the emergency room for evaluation where she was found to be in normal sinus rhythm in the 80s. She denies chest pain shortness of breath nausea vomiting. Patient is unclear about her home medication regiment. She denies fever or additional medications. In the emergency room she is found to be dehydrated, she receives IV fluids and referred the hospitalist for observation. This history was reviewed and confirmed. Patient subsequently had mild elevation of troponin I but she never had any chest pain. Troponin I have subsequently trended down. Patient was also noted to have elevated BNP level, review of chest x-ray however shows no evidence of CHF. Patient also got 2 L of IV fluids which could have precipitated CHF. Currently patient seems well compensated. I was asked to evaluate patient, to make sure that patient is safe for discharge. Patient does really want to go home. Patient does see Dr. Ruelas from [facility]. Before that she used to see Dr. [place] Richard. Patient currently wearing a event monitor from that cardiology group. She sees them intermittently in [place] as well. Patient had a 2D echocardiogram which was reviewed. It shows normal LVEF with some diastolic dysfunction. Patient does have history of CAD and had received 2 stents however it was quite some time ago. Past Medical History Cardiac Medical History: Reports: Myocardial Infarction - 10/2014, Hyperlipidema , Hypertension Pulmonary Medical History: Reports: Asthma, Chronic Obstructive Pulmonary Disease (COPD), Pneumonia Malignancy Medical History: Reports: Skin Cancer GI Medical History: Reports: Crohn's Disease, Gastroesophageal Reflux Disease, Hiatal Hernia, Ulcerative Colitis Musculoskeltal Medical History: Reports: Arthritis Psychiatric Medical History: Reports: Depression, Tobacco Dependency Past Surgical History Past Surgical History: Reports: Cardiac Catheterization - stent x 2, Coronary Stent Social History Information Source: Patient Lives with: Family Smoking Status: Current Every Day Smoker Frequency of Alcohol Use: None Hx Recreational Drug Use: No Drugs: None Hx Prescription Drug Abuse: No - Advance Directive Resuscitation Status: Full Code Surrogate healthcare decision maker:: Patient's children are surrogate decision-maker Family History Family History: Reviewed & Not Pertinent, DM, Hypertension Parental Family History Reviewed: Yes Children Family History Reviewed: Yes Sibling(s) Family History Reviewed.: Yes Medication/Allergy Home Medications: Albuterol Sulfate [Ventolin Hfa] 2 puff IH Q4HP PRN 10/05/17 Calcitriol [Rocaltrol 0.25 mcg Capsule] 0.25 mcg PO MOWEFR@1000 10/05/17 Clopidogrel Bisulfate [Plavix 75 mg Tablet] 75 mg PO DAILY 10/05/17 Doxycycline Hyclate [Vibramycin 100 mg Tablet] 100 mg PO BID 10/05/17 Duloxetine HCl [Cymbalta] 30 mg PO DAILY 10/05/17 Metoprolol Tartrate [Lopressor 50 mg Tablet] 50 mg PO Q12 10/05/17 Rosuvastatin Calcium [Crestor 10 mg Tablet] 10 mg PO QHS 10/05/17 Valsartan [Diovan 160 mg Tablet] 160 mg PO Q12 10/05/17 Allergies/Adverse Reactions: prednisone [Prednisone] Allergy (Unknown, Verified 01/15/16 20:44) cephalexin [Cephalexin] Allergy (Verified 01/15/16 20:44) Cephalosporins Allergy (Verified 02/09/16 14:47) ciprofloxacin [From Cipro] Allergy (Verified 01/15/16 20:44) cortisone [Cortisone] Allergy (Verified 01/15/16 20:44) Penicillins Allergy (Verified 02/09/16 14:47) phenazopyridine [Phenazopyridine] Allergy (Verified 01/15/16 20:44) sulfamethoxazole [From Bactrim] Allergy (Verified 01/15/16 20:44) tramadol HCl [From Ultram] Allergy (Verified 01/15/16 20:44) trimethoprim [From Bactrim] Allergy (Verified 01/15/16 20:44) Review of Systems Review of Systems: Please see history of present illness and past medical history as wall. Constitutional: No fever or chills reported. Head : No recent chronic headaches, recent head injury. Eyes: No recent eye pain, diplopia, redness, discharge, acute visual changes. Ears: No recent chronic ear pain, acute hearing loss, ear discharge. Oral cavity: No recent ulcerations, bleeding, oral cavity discomfort. Neck: No recent acute neck pain reported. Hematologic: No recent easy bruising or bleeding or hematologic malignancy reported. Lymphatic: No recent lymphatic malignancy, chronic lymphadenopathy reported yet Cardiovascular system review: See history of present illness. No recent chest pains. Currently wearing a event monitor. Respiratory system review: No recent chronic cough, hemoptysis, blood clots in the lungs reported. Shortness of breath on exertion. History of COPD on home oxygen. Gastrointestinal system review: Negative for any recent acute or chronic abdominal pain, hematemesis, melena, recent change in bowel habits. Genitourinary system review: No recent acute or chronic hematuria, flank pain, UTI etc. reported. Skin system review: Negative for any recent abnormal bruising, no rash, no pruritus reported. Neurologic: No prior history of strokes, mini strokes, seizure disorder. Psychologic: No history of major psychosis or major depression reported. Musculoskeletal: Minor aches and pains reported. No acute joint swelling reported. Endocrine: No recent polyuria, polydipsia, recent heat or cold intolerance. Physical Exam Vital Signs: Temp Pulse Resp BP Pulse Ox 97.5 F 84 18 196/74 H 89 L 10/06/17 07:39 10/06/17 07:46 10/06/17 07:46 10/06/17 07:39 10/06/17 07:46 Intake & Output 10/05/17 10/06/17 10/07/17 06:59 06:59 06:59 Intake Total 902 Balance 902 Weight 67.2 kg 66.8 kg Exam: GENERAL: well-nourished and in no acute distress. Alert and oriented x3 HEAD: Atraumatic, normocephalic. EYES: Pupils equal round and reactive to light, extraocular movements intact, sclera anicteric, conjunctiva are normal. ENT: TMs normal, nares patent, oropharynx clear without exudates. Moist mucous membranes. No oral ulcerations or bleeding gums noted NECK: supple without lymphadenopathy. Trachea is central. No cervical or axillary lymphadenopathy noted. Carotids are 2+, JVD WNL LUNGS: Respiration seems nonlabored, no significant accessory muscle action noted. Few a scattered wheezes rales or rhonchi noted. No significant dullness noted on percussion. CHEST: Palpation of the chest wall shows no significant chest wall tenderness. No other significant abnormalities noted. HEART: [place], No PSH, 1/6 HAKAN aortic area, 1/6 anguiano systolic murmur mitral area, no rubs, no gallops. ABDOMEN: Soft, no significant tenderness appreciated, normoactive bowel sounds. No guarding, no rebound. No rigidity noted . No masses appreciated. EXTREMITIES: Pedal pulses are 1-2+, no calf tenderness noted. No clubbing or cyanosis.trace pedal edema noted NEUROLOGICAL: Focused neurological exam showed no significant neurologic deficit. Normal speech, no focal weakness appreciated. PSYCH: Normal mood, normal affect. Judgment and insight within normal limits. SKIN: No significant ecchymosis, skin is noted to be warm. MUSCULOSKELETAL EXAM: No significant acute joint swelling noted. Results Laboratory Results: 10/06/17 05:33 10/06/17 05:33 10/06/17 10/06/17 05:33 05:33 WBC 4.9 RBC 3.67 L Hgb 10.8 L Hct 32.0 L MCV 87 MCH 29.5 MCHC 33.9 RDW 13.6 Plt Count 170 Seg Neutrophils % 52.3 Lymphocytes % 37.1 Monocytes % 7.6 Eosinophils % 2.2 Basophils % 0.8 Absolute Neutrophils 2.6 Absolute Lymphocytes 1.8 Absolute Monocytes 0.4 Absolute Eosinophils 0.1 Absolute Basophils 0.0 Sodium 142.9 Potassium 3.7 Chloride 103 Carbon Dioxide 35 H Anion Gap 5 BUN 27 H Creatinine 0.80 Est GFR ( Amer) > 60 Est GFR (Non-Af Amer) > 60 Glucose 89 Calcium 9.2 Magnesium 1.9 10/05/17 10/05/17 10/06/17 03:25 03:25 05:33 Creatine Kinase 55 CK-MB (CK-2) Troponin I 0.091 NT-Pro-B Natriuret Pep 2530 H 10/06/17 10/06/17 05:33 05:33 Creatine Kinase CK-MB (CK-2) 1.25 Troponin I 0.039 NT-Pro-B Natriuret Pep 1650 H EKG Comments: Initial EKG shows sinus rhythm with minor nonspecific ST segment changes. Frequent APCs noted. Review of all telemetry strips shows no recurrence of atrial fibrillation. We do not have EKGs rhythm strips from the [place]anish tutor. Impressions: Chest X-Ray 10/06/17 00:00 IMPRESSION: HEART ENLARGED WITHOUT FAILURE. NO OTHER SIGNIFICANT RADIOGRAPHIC FINDING IN THE CHEST. Assessment & Plan - Diagnosis (1) Cardiac dysrhythmia, unspecified Qualifiers: Arrhythmia type: unspecified cardiac arrhythmia Qualified Code(s): I49.9 - Cardiac arrhythmia, unspecified Is this a current diagnosis for this admission?: Yes (2) COPD (chronic obstructive pulmonary disease) Qualifiers: Emphysema type: unspecified Is this a current diagnosis for this admission?: Yes (3) Elevated troponin Is this a current diagnosis for this admission?: Yes (4) Tobacco abuse Is this a current diagnosis for this admission?: Yes (5) GERD (gastroesophageal reflux disease) Qualifiers: Esophagitis presence: without esophagitis Qualified Code(s): K21.9 - Gastro -esophageal reflux disease without esophagitis Is this a current diagnosis for this admission?: Yes (6) CAD (coronary artery disease) Qualifiers: Coronary Disease-Associated Artery/Lesion type: unspecified vessel or lesion type [place] vs. transplanted heart: [place] heart Associated angina: angina presence unspecified Qualified Code(s): I25.10 - Atherosclerotic heart disease of [place] coronary artery without angina pectoris Is this a current diagnosis for this admission?: Yes (7) History of CVA (cerebrovascular accident) Is this a current diagnosis for this admission?: Yes (8) Hyperlipidemia Qualifiers: Hyperlipidemia type: unspecified Qualified Code(s): E78.5 - Hyperlipidemia , unspecified Is this a current diagnosis for this admission?: Yes - Notes Notes: Cardiac dysrhythmia: Patient claims history of palpitations. Patient currently wearing a event monitor from her primary care poultry helper. So far review of rhythm strips available here, I did not see any evidence of atrial fibrillation. Only frequent APCs were noted. At this point will recommend maintaining electrolytes within normal range and continuing patient's home metoprolol tartrate but better option would be to switch patient to metoprolol succinate. Do not feel we need to add any Cardizem at this point but could be added later on. COPD: Have asked patient to quit smoking. Continue current bronchodilator and steroid inhaler therapy. Elevated troponin I: These are all in the indeterminate range. Patient not having any chest pain. This amount of elevated troponin I could well be from COPD/hypoxemia, CHF, tachycardia etc. no ischemia workup planned but can be considered as an outpatient. Continue statins and beta-dawson therapy as well as antiplatelet therapy with Plavix. Tobacco abuse: Patient has been advised to quit smoking. Gastroesophageal reflux disease: Continue with proton pump inhibitor. Coronary artery disease: Currently stable. Continue current therapeutic regimen which is pretty satisfactory. History of cerebrovascular accident: At this point patient without any significant residual defect. Will have low threshold for chronic anticoagulation if atrial fibrillation is found. Dyslipidemia: Patient home medication was Crestor. Continue with it. Patient can follow-up with me if she wishes. Patient to continue to wear the event monitor. Patient seems reasonably stable and is well plugged in. She is wearing a event monitor from outside poultry helper and also has oxygen at home. Heart rhythm has been relatively stable. Therefore it is reasonably safe for patient to go home on her home medication. Patient should be advised compliance with medication and smoking cessation. - Time Time Spent: 30 to 50 Minutes - CODE STATUS was discussed, patient remains full code. Surrogate decision-maker patient's children. Multiple medical problems were addressed. More than 50% of the time spent coordinating care, discussing management plans with involved caregivers. Management plans discussed with involved personnels. Medical decision making was of moderate to high complexity , patient's has multiple comorbidities. Medications reviewed and adjusted accordingly: Yes
--- NOTE | 2017-10-06 16:48 | PDOC DISCHARGE SUMMARY ---
General - Admit/Disc Date/PCP Admission Date/Primary Care Provider: 10/05/17 01:32 CARMELA RESENDIZ Candy Feeder: Dr. Servin Discharge Date: 10/06/17 - Discharge Diagnosis (1) Atrial fibrillation with rapid ventricular response Is this a current diagnosis for this admission?: Yes Summary: Resolved. Continue home dose of metoprolol. She was seen by cardiology prior to discharge. She will follow-up with Dr. Servin as an outpatient. She does have a playground monitor in place from her outpatient physician. (2) Acute on chronic combined systolic and diastolic CHF (congestive heart failure) Is this a current diagnosis for this admission?: Yes Summary: She received 2 doses of IV Lasix after receiving IV fluids at the time of admission. Currently euvolemic. (3) Acute and chronic respiratory failure ([id number]) Is this a current diagnosis for this admission?: Yes Summary: The patient has home oxygen therapy at home. Her acute respiratory failure has resolved and was likely secondary to mild congestive heart failure exacerbation as well as atrial fibrillation with a rapid rate. (4) COPD (chronic obstructive pulmonary disease) Is this a current diagnosis for this admission?: Yes Summary: Stable. No evidence of decompensation exacerbation (5) Depression Is this a current diagnosis for this admission?: Yes Summary: Continue home regimen (6) Anemia Is this a current diagnosis for this admission?: Yes Summary: Stable (7) Tobacco abuse Is this a current diagnosis for this admission?: Yes Summary: Certainly it would be in her best interest to quit smoking (8) CAD (coronary artery disease) Is this a current diagnosis for this admission?: Yes Summary: Status post stent placement. She will follow-up with cardiology as an outpatient (9) History of CVA (cerebrovascular accident) Is this a current diagnosis for this admission?: Yes Summary: Continue home regimen (10) Hyperlipidemia Is this a current diagnosis for this admission?: Yes Summary: Continue statin medication (11) Ulcerative colitis Is this a current diagnosis for this admission?: Yes Summary: No evidence of flare (12) Full code status Is this a current diagnosis for this admission?: Yes - Additional Information Resuscitation Status: Full Code Discharge Diet: As Tolerated Discharge Activity: Activity As Tolerated Prescriptions: Dexlansoprazole [Dexilant] 60 mg PO DAILY #30 cap.bp Home Medications: Albuterol Sulfate [Ventolin Hfa] 2 puff IH Q4HP PRN 10/05/17 Calcitriol [Rocaltrol 0.25 mcg Capsule] 0.25 mcg PO MOWEFR@1000 10/05/17 Clopidogrel Bisulfate [Plavix 75 mg Tablet] 75 mg PO DAILY 10/05/17 Doxycycline Hyclate [Vibramycin 100 mg Tablet] 100 mg PO BID 10/05/17 Duloxetine HCl [Cymbalta] 30 mg PO DAILY 10/05/17 Rosuvastatin Calcium [Crestor 10 mg Tablet] 10 mg PO QHS 10/05/17 Valsartan [Diovan 160 mg Tablet] 160 mg PO Q12 10/05/17 Citalopram Hydrobromide [Celexa 20 mg Tablet] 10 mg PO DAILY tablet 10/06/17 Dexlansoprazole [Dexilant] 60 mg PO DAILY #30 cap. 10/06/17 Docusate Sodium [Colace 100 mg Capsule] 100 mg PO BID capsule 10/06/17 Fluticasone Propionate [Flonase Nasal [place] 50 Mcg/[place] 16 gm] 2 spray NASL DAILYP PRN spray.pump 10/06/17 Metoprolol Tartrate [Lopressor 50 mg Tablet] 50 mg PO Q12 tablet 10/06/17 History of Present Illness History of Present Illness: CINTHYA DANIELLE is a 81 year old female Hospital Course Hospital Course: The patient is an extremely pleasant 81-year-old female with a past medical history significant for oxygen dependent COPD, coronary artery disease status post stent placement in the past. She has known dyslipidemia, hypertension and ulcerative colitis as well as atrial fibrillation. Unfortunately she continues to smoke. The patient presented to the emergency room with heart palpitations. EMS found her to have atrial fibrillation with rates in the 130s and 40s. By the time she arrived at the hospital she was in a sinus rhythm. In the emergency room she was found to be somewhat dehydrated and she did receive some IV fluids. At the time of admission she had mild elevation of her troponins but never had any chest pain. It was felt that the patient the next day the patient was still somewhat short of breath and it was felt that she had a mild congestive heart failure exacerbation due to the IV fluid she received at the time of admission. She received 2 doses of IV Lasix. The patient had a 2D echocardiogram which revealed diastolic dysfunction but she had a preserved left ventricular ejection fraction. The patient was evaluated by cardiology prior to discharge. The patient's sister is currently in the hospital here at our facility on comfort measures. She wants to leave the hospital. The patient does have an event monitor in place from her outpatient physicians. She was seen by Dr. Servin who feels as if she is stable for discharge with close outpatient follow-up. We will make her an appointment to follow-up with her primary care physician as well as Dr. Servin next week. At this point maximum hospital benefit has been reached. The patient will be discharged home today in stable condition. Physical Exam Vital Signs: Temp Pulse Resp BP Pulse Ox 97.5 F 55 L 20 150/61 H 98 10/06/17 14:28 10/06/17 14:28 10/06/17 14:28 10/06/17 14:28 10/06/17 14:28 Intake & Output 10/05/17 10/06/17 10/07/17 06:59 06:59 06:59 Intake Total 902 Balance 902 Weight 67.2 kg 66.8 kg General appearance: PRESENT: no acute distress, well-developed, well-nourished Head exam: PRESENT: atraumatic, normocephalic Mouth exam: PRESENT: moist, tongue midline Respiratory exam: PRESENT: clear to auscultation emma. ABSENT: rales, rhonchi, wheezes Cardiovascular exam: PRESENT: RRR. ABSENT: diastolic murmur, rubs, systolic murmur Vascular exam: PRESENT: normal capillary refill GI/Abdominal exam: PRESENT: normal bowel sounds, soft. ABSENT: distended, guarding, mass, organolmegaly, rebound, tenderness Rectal exam: PRESENT: deferred Extremities exam: PRESENT: full ROM. ABSENT: calf tenderness, clubbing, pedal edema Musculoskeletal exam: PRESENT: ambulatory Neurological exam: PRESENT: alert, awake, oriented to person, oriented to place , oriented to time, oriented to situation, CN II-XII grossly intact. ABSENT: motor sensory deficit Skin exam: PRESENT: dry, intact, warm. ABSENT: cyanosis, rash Results Laboratory Results: 10/06/17 05:33 10/06/17 05:33 10/06/17 10/06/17 05:33 05:33 WBC 4.9 RBC 3.67 L Hgb 10.8 L Hct 32.0 L MCV 87 MCH 29.5 MCHC 33.9 RDW 13.6 Plt Count 170 Seg Neutrophils % 52.3 Lymphocytes % 37.1 Monocytes % 7.6 Eosinophils % 2.2 Basophils % 0.8 Absolute Neutrophils 2.6 Absolute Lymphocytes 1.8 Absolute Monocytes 0.4 Absolute Eosinophils 0.1 Absolute Basophils 0.0 Sodium 142.9 Potassium 3.7 Chloride 103 Carbon Dioxide 35 H Anion Gap 5 BUN 27 H Creatinine 0.80 Est GFR ( Amer) > 60 Est GFR (Non-Af Amer) > 60 Glucose 89 Calcium 9.2 Magnesium 1.9 10/05/17 10/05/17 10/06/17 03:25 03:25 05:33 Creatine Kinase 55 CK-MB (CK-2) Troponin I 0.091 NT-Pro-B Natriuret Pep 2530 H 10/06/17 10/06/17 05:33 05:33 Creatine Kinase CK-MB (CK-2) 1.25 Troponin I 0.039 NT-Pro-B Natriuret Pep 1650 H Impressions: Chest X-Ray 10/06/17 00:00 IMPRESSION: HEART ENLARGED WITHOUT FAILURE. NO OTHER SIGNIFICANT RADIOGRAPHIC FINDING IN THE CHEST. Qualifiers - * PATEINT BEING DISCHARGED WITH ANY OF THE FOLLOWING DIAGNOSIS?: No Plan Time Spent: Greater than 30 Minutes
[2017-10-07] MEDS ORDERED: CALCITRIOL 0.25 MCG CAPSULE PO SCH (10:00)
== END 2017-10-06 15:00 | disposition home or self-care (01) ==
LOC: ER 23:06 → EH 10-05 01:32 → 4S 10-05 03:30
PROVIDERS: ADMIT Internal Medicine; ATTEND Internal Medicine
DX: I48.91 Unspecified atrial fibrillation (principal); I25.2 Old myocardial infarction; I11.0 Hypertensive heart disease with heart failure; I50.43 Acute on chronic combined systolic (congestive) and diastolic (congestive) heart failure; R77.8 Other specified abnormalities of plasma proteins; K21.9 Gastro-esophageal reflux disease without esophagitis; J96.20 Acute and chronic respiratory failure, unspecified whether with hypoxia or hypercapnia; F32.9 Major depressive disorder, single episode, unspecified; I25.10 Atherosclerotic heart disease of native coronary artery without angina pectoris; E78.5 Hyperlipidemia, unspecified; K51.90 Ulcerative colitis, unspecified, without complications; D50.9 Iron deficiency anemia, unspecified; J44.9 Chronic obstructive pulmonary disease, unspecified; F17.200 Nicotine dependence, unspecified, uncomplicated; Z99.81 Dependence on supplemental oxygen; Z86.73 Personal history of transient ischemic attack (TIA), and cerebral infarction without residual deficits
CPT/HCPCS: 93005; 99285; 36415 ×3; 82553 ×2; 82550 ×2; 83735; 85025 ×2; 80048; 80053; 84484 ×3; 83880 ×2; 93306; 71045 ×2; 93010; 94640 ×3; G0378 ×3; A9270 ×19; J1940 ×2; J3490 ×2; J7030; J7620

== ENCOUNTER 2017-10-07 13:27 | Emergency (ER) | payer MEDICARE, OTHER ==
[2017-10-07] MEDS ORDERED: ASPIRIN 81 MG TABLET, CHEWABLE PO ONE (13:31)
[2017-10-07 14:16] LABS: ABSOLUTE BASOPHILS # (AUTO) 0.1 10^3/uL (0.0-0.2); ABSOLUTE LYMPHOCYTES (AUTO) 1.2 10^3/uL (0.5-4.7); ABSOLUTE MONOCYTES (AUTO) 0.6 10^3/uL (0.1-1.4); ABSOLUTE NEUT (AUTO) 4.8 10^3/uL (1.7-8.2); BASOPHILS % (AUTO) 1.8 % (0-2); EOSINOPHILS % (AUTO) 0.6 % (0-6); HEMATOCRIT 38.7 % (36.0-47.0); HEMOGLOBIN 12.7 g/dL (12.0-15.5); MEAN CORPUSCULAR HEMOGLOBIN 28.9 pg (27.0-33.4); MEAN CORPUSCULAR HGB CONC 32.8 g/dL (32.0-36.0); MEAN CORPUSCULAR VOLUME 88 fl (80-97); MONOCYTES % (AUTO) 8.6 % (3-13); PLATELET COUNT 222 10^3/uL (150-450); RED BLOOD COUNT 4.39 10^6/uL (3.72-5.28); RED CELL DISTRIBUTION WIDTH 13.6 % (11.5-14.0); TOTAL CELLS COUNTED % (AUTO) 100 %; WHITE BLOOD COUNT 6.7 10^3/uL (4.0-10.5)
--- NOTE | 2017-10-07 14:29 | RADIOLOGY REPORT (SQ) ---
EXAM DESCRIPTION: CHEST SINGLE VIEW COMPLETED DATE/TIME: 10/07/2017 2:04 pm REASON FOR STUDY: bed 21 elevated hr COMPARISON: Chest films 10/06/2016, 02/15/2017, 10/05/2017, 10/06/2017 EXAM PARAMETERS: NUMBER OF VIEWS: One view. TECHNIQUE: Single frontal radiographic view of the chest acquired. RADIATION DOSE: NA LIMITATIONS: None. FINDINGS: LUNGS AND PLEURA: No opacities, masses or pneumothorax. No pleural effusion. MEDIASTINUM AND HILAR STRUCTURES: No masses. Contour normal. HEART AND VASCULAR STRUCTURES: Stable mild cardiomegaly BONES: Osteopenic. No gross acute fracture HARDWARE: None in the chest. OTHER: No other significant finding. IMPRESSION: Stable mild cardiomegaly TECHNICAL DOCUMENTATION: JOB ID: [id number]- All Rights Reserved Reading location - IP/workstation name: [email or web address]
[2017-10-07 14:38] LABS: ALANINE AMINOTRANSFERASE 25 U/L (9-52); ALBUMIN 4.1 g/dL (3.5-5.0); ALKALINE PHOSPHATASE 62 U/L (38-126); ANION GAP 9 (5-19); ASPARTATE AMINO TRANSFERASE 21 U/L (14-36); BILIRUBIN,DIRECT 0.1 mg/dL (0.0-0.4); BILIRUBIN,TOTAL 0.2 mg/dL (0.2-1.3); BLOOD UREA NITROGEN 30 mg/dL (7-20); CALCIUM 9.9 mg/dL (8.4-10.2); CARBON DIOXIDE 36 mmol/L (22-30); CHLORIDE 98 mmol/L (98-107); CREATINE KINASE 63 U/L (30-135); GLUCOSE 105 mg/dL (75-110); SODIUM 142.8 mmol/L (137-145); TOTAL PROTEIN 6.2 g/dL (6.3-8.2)
[2017-10-07 14:50] LABS: CREATINE KINASE MB 1.8 ng/mL (<4.55)
[2017-10-07 14:52] LABS: TROPONIN I 0.034 ng/mL
--- NOTE | 2017-10-07 15:38 | ER Document Report ---
ED General - General Chief Complaint: Irregular Pulse Stated Complaint: HEART CONDITION Time Seen by Provider: 10/07/17 14:22 Mode of Arrival: Medic Information source: Patient Notes: 81-year-old female brought into the emergency room because of palpitations. She was found by EMS to be in atrial fibrillation with a rapid ventricular rate of 164. While she was in the EMS truck, she converted to sinus rhythm while an IV was being placed. Currently, the patient denies any palpitations, chest pain , shortness of breath. Patient states she feels good and would like to go home. TRAVEL OUTSIDE OF THE [place] IN LAST 30 DAYS: No - HPI Onset: Just prior to arrival Onset/Duration: Sudden Quality of pain: No pain Severity: None Pain Level: Denies Associated symptoms: denies: Chest pain, Fever, Shortness of breath Exacerbated by: Denies Relieved by: Denies Similar symptoms previously: Yes Recently seen / treated by doctor: Yes - Related Data Allergies/Adverse Reactions: prednisone [Prednisone] Allergy (Unknown, Verified 10/07/17 14:12) cephalexin [Cephalexin] Allergy (Verified 10/07/17 14:12) Cephalosporins Allergy (Verified 10/07/17 14:12) ciprofloxacin [From Cipro] Allergy (Verified 10/07/17 14:12) cortisone [Cortisone] Allergy (Verified 10/07/17 14:12) Penicillins Allergy (Verified 10/07/17 14:12) phenazopyridine [Phenazopyridine] Allergy (Verified 10/07/17 14:12) sulfamethoxazole [From Bactrim] Allergy (Verified 10/07/17 14:12) tramadol HCl [From Ultram] Allergy (Verified 10/07/17 14:12) trimethoprim [From Bactrim] Allergy (Verified 10/07/17 14:12) Past Medical History - General Information source: Patient - Social History Smoking Status: Former Smoker Cigarette use (# per day): No Chew tobacco use (# tins/day): No Frequency of alcohol use: None Drug Abuse: None Lives with: Family Family History: Reviewed & Not Pertinent, DM, Hypertension Patient has suicidal ideation: No Patient has homicidal ideation: No - Past Medical History Cardiac Medical History: Reports: Hx Heart Attack - 10/2014, Hx Hypercholesterolemia, Hx Hypertension Pulmonary Medical History: Reports: Hx Asthma, Hx COPD, Hx Pneumonia Neurological Medical History: Reports: 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 , speech deficit Renal/ Medical History: Denies: Hx Peritoneal Dialysis Malignancy Medical History: Reports: Hx Skin Cancer GI Medical History: Reports: Hx Crohn's Disease, Hx Gastroesophageal Reflux Disease, Hx Hiatal Hernia, Hx Ulcer, Hx Ulcerative Colitis Musculoskeltal Medical History: Reports Hx Arthritis Psychiatric Medical History: Reports: Hx Depression Past Surgical History: Reports: Hx Abdominal Surgery - umbilical hernia, Hx Cardiac Catheterization - stent x 2, Hx Cardiac Surgery - Stent, Hx Coronary Stent - Immunizations Hx Diphtheria, Pertussis, Tetanus Vaccination: Yes Hx Pneumococcal Vaccination: 07/08/11 Review of Systems - Review of Systems Constitutional: denies: Chills, Fever EENT: No symptoms reported Cardiovascular: See HPI, Palpitations Respiratory: No symptoms reported Gastrointestinal: No symptoms reported Genitourinary: No symptoms reported Female Genitourinary: No symptoms reported Musculoskeletal: No symptoms reported Skin: No symptoms reported Hematologic/Lymphatic: No symptoms reported Neurological/Psychological: No symptoms reported Physical Exam - Vital signs Vitals: Temp BP Pulse Ox 98.0 F 167/76 H 91 L 10/07/17 13:39 10/07/17 13:39 10/07/17 13:39 Notes: Physical exam: GENERAL: 81-year-old female, alert and oriented 3, no acute distress. HEAD: Atraumatic, normocephalic. EYES: Pupils equal round and reactive to light, extraocular movements intact, sclera anicteric, conjunctiva are normal. ENT: TMs normal, nares patent, oropharynx clear without exudates. Moist mucous membranes. NECK: Normal range of motion, supple without obvious mass or JVD. LUNGS: Breath sounds clear to auscultation bilaterally and equal. No wheezes rales or rhonchi. HEART: Regular rate and rhythm without murmurs, rubs or gallops. ABDOMEN: Soft, normoactive bowel sounds. No tenderness to palpation. No guarding, no rebound. No masses appreciated. EXTREMITIES: Normal range of motion, no pitting or edema. No clubbing or cyanosis. NEUROLOGICAL: Cranial nerves II through XII grossly intact. Normal speech, moving all extremities. PSYCH: Normal mood, normal affect. SKIN: Warm, Dry, normal turgor, no rashes or lesions noted. Course - Vital Signs Vital signs: Temp Pulse Resp BP Pulse Ox 98.0 F 20 158/78 H 98 10/07/17 13:39 10/07/17 15:41 10/07/17 15:41 10/07/17 15:41 - Laboratory Result Diagrams: 10/07/17 14:05 10/07/17 14:05 Laboratory results interpreted by me: 10/07/17 14:05 Carbon Dioxide 36 H BUN 30 H Est GFR (Non-Af Amer) 54 L Total Protein 6.2 L - Diagnostic Test Radiology reviewed: Image reviewed, Reports reviewed - X-ray reveals stable mild cardiomegaly - EKG Interpretation by Me Rate: Tachycardia Rhythm: NSR - EKG shows sinus tachycardia with a ventricular rate of 104, nonspecific ST changes. No acute ST elevations or depressions. Discharge - Discharge Clinical Impression: Atrial fibrillation with a rapid ventric Condition: Stable Disposition: HOME, SELF-CARE Additional Instructions: As we discussed, we would like you to restart the Lopressor (metoprolol) 50 mg twice daily. This medicine is not only for the blood pressure but will help maintain a lower heart rate. Continue all other medicines. Return to the emergency room for worsening palpitations associated with chest pain, shortness of breath or feeling like again a faint. Return to the emergency room if you have palpitations and a fast heartbeat that does not go away. If you are experiencing a fast heartbeat, you to check your blood pressure and if it is over 140/80, you can take an extra Lopressor. Follow-up with Dr. Ruelas at [facility] as planned. Referrals: ROBINA BURKS PA-C [Primary Care Provider] - Follow up as needed
[2017-10-07 15:56] VITALS: BP 158/78
--- NOTE | 2017-10-07 19:22 | EKG REPORT ---
SEVERITY:- ABNORMAL ECG - SINUS TACHYCARDIA PROBABLE LVH WITH SECONDARY REPOL ABNRM : Confirmed by: Eunice Servin 07-Oct-2017 19:21:42
== END 2017-10-07 15:56 | disposition home or self-care (01) ==
LOC: ER 13:27
DX: I48.91 Unspecified atrial fibrillation (principal); I51.7 Cardiomegaly; R00.0 Tachycardia, unspecified; I10 Essential (primary) hypertension; I25.2 Old myocardial infarction; J44.9 Chronic obstructive pulmonary disease, unspecified; Z88.8 Allergy status to other drugs, medicaments and biological substances; Z88.1 Allergy status to other antibiotic agents; Z88.0 Allergy status to penicillin; Z88.5 Allergy status to narcotic agent; Z87.891 Personal history of nicotine dependence; Z85.828 Personal history of other malignant neoplasm of skin; Z95.5 Presence of coronary angioplasty implant and graft
CPT/HCPCS: 93005; 99285; 36415; 82553; 82550; 83735; 84443; 85025; 80053; 84484; 71045; 93010; A9270

== ENCOUNTER 2017-11-11 00:40 | Emergency (ER) | payer MEDICARE, OTHER ==
[2017-11-11] MEDS ORDERED: ASPIRIN 81 MG TABLET, CHEWABLE PO ONE (01:11)
--- NOTE | 2017-11-11 01:19 | ER Document Report ---
ED Cardiac - General Chief Complaint: Weakness Stated Complaint: WEAKNESS Time Seen by Provider: 11/11/17 00:55 Mode of Arrival: Medic Information source: Patient Notes: Patient states that she has had palpitations off and on that started this afternoon. Patient states that the palpitations persisted which prompted her to call EMS. Patient also reports generalized pruritus that started yesterday. Patient reports occasionally productive cough. Patient reports some dysuria symptoms. Patient denies any nausea or vomiting. Patient denies any fever. Patient denies any chest pain. TRAVEL OUTSIDE OF THE [place] IN LAST 30 DAYS: No - HPI Patient complains to provider of: Palpitations. denies: Chest pain, Shortness of breath Quality of pain: None Cardiac risk factors: Hypertension, Smoker, Hx ND Associated symptoms: Palpitations, Other - Urinary symptoms. denies: Nausea/ vomiting Exacerbated by: Denies Relieved by: Nothing Similar symptoms previously: Yes Recently seen / treated by doctor: No - Related Data Allergies/Adverse Reactions: prednisone [Prednisone] Allergy (Unknown, Verified 10/07/17 14:12) cephalexin [Cephalexin] Allergy (Verified 10/07/17 14:12) Cephalosporins Allergy (Verified 10/07/17 14:12) ciprofloxacin [From Cipro] Allergy (Verified 10/07/17 14:12) cortisone [Cortisone] Allergy (Verified 10/07/17 14:12) Penicillins Allergy (Verified 10/07/17 14:12) phenazopyridine [Phenazopyridine] Allergy (Verified 10/07/17 14:12) sulfamethoxazole [From Bactrim] Allergy (Verified 10/07/17 14:12) tramadol HCl [From Ultram] Allergy (Verified 10/07/17 14:12) trimethoprim [From Bactrim] Allergy (Verified 10/07/17 14:12) Past Medical History - General Information source: Patient - Social History Smoking Status: Current Some Day Smoker Smoking Education Provided: Yes Frequency of alcohol use: None Drug Abuse: None Lives with: Alone Family History: Reviewed & Not Pertinent, DM, Hypertension - Past Medical History Cardiac Medical History: Reports: Hx Heart Attack - 10/2014, Hx Hypercholesterolemia, Hx Hypertension Pulmonary Medical History: Reports: Hx Asthma, Hx COPD, Hx Pneumonia Neurological Medical History: Reports: 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 , speech deficit Renal/ Medical History: Denies: Hx Peritoneal Dialysis Malignancy Medical History: Reports: Hx Skin Cancer GI Medical History: Reports: Hx Crohn's Disease, Hx Gastroesophageal Reflux Disease, Hx Hiatal Hernia, Hx Ulcer, Hx Ulcerative Colitis Musculoskeltal Medical History: Reports Hx Arthritis Psychiatric Medical History: Reports: Hx Depression Past Surgical History: Reports: Hx Abdominal Surgery - umbilical hernia, Hx Cardiac Catheterization - stent x 2, Hx Cardiac Surgery - Stent, Hx Coronary Stent - Immunizations Hx Diphtheria, Pertussis, Tetanus Vaccination: Yes Hx Pneumococcal Vaccination: 07/08/11 Review of Systems - Review of Systems Constitutional: No symptoms reported. denies: Chills, Fever EENT: No symptoms reported Cardiovascular: Palpitations. denies: Chest pain Respiratory: Cough. denies: Short of breath Gastrointestinal: No symptoms reported. denies: Nausea, Vomiting Genitourinary: Dysuria. denies: Flank pain Female Genitourinary: No symptoms reported Musculoskeletal: No symptoms reported. denies: Back pain Skin: Other - Pruritus Hematologic/Lymphatic: No symptoms reported Neurological/Psychological: No symptoms reported Physical Exam - Vital signs Vitals: Resp Pulse Ox 20 93 11/11/17 00:52 11/11/17 00:52 - General General appearance: Appears well, Alert In distress: None - HEENT Head: Normocephalic, Atraumatic Eyes: Normal Conjunctiva: Normal Nasal: Normal Mouth/Lips: Normal Mucous membranes: Dry Pharynx: Normal Neck: Normal, Supple. No: Lymphadenopathy - Respiratory Respiratory status: No respiratory distress Chest status: Nontender Breath sounds: Nonproductive cough, Rhonchi Chest palpation: Normal - Cardiovascular Rhythm: Irregularly irregular Heart sounds: S1 appreciated, S2 appreciated Murmur: No - Abdominal Inspection: Normal Distension: No distension Bowel sounds: Normal Tenderness: Nontender Organomegaly: No organomegaly - Back Back: Normal, Nontender. No: CVA tenderness - Extremities General upper extremity: Normal inspection, Normal ROM General lower extremity: Normal inspection, Normal ROM - Neurological Neuro grossly intact: Yes Cognition: Normal Tiny Coma Scale Eye Opening: Spontaneous Tiny Coma Scale Verbal: Oriented Tiny Coma Scale Motor: Obeys Commands Tiny Coma Scale Total: 15 - Psychological Associated symptoms: Normal affect, Normal mood - Skin Skin Temperature: Warm Skin Moisture: Dry Skin Color: Other - abrasions to LLE Course - Re-evaluation Re-evalutation: 11/11/17 01:39 Patient denies any pain at this time. Patient does report intermittent palpitations. Heart monitor with a rate in the 60s, rhythm is irregularly irregular. 11/11/17 03:[address] Helton regarding patient presentation. Reviewed patient's diagnostic tests as well as chest x-ray. No additional testing advised at this time. Patient encouraged to follow-up with her aircraft painter. Patient resting with eyes closed, arouses easily to voice. Patient denies any chest pain or shortness of breath. Patient's heart rate continues in the 60-70' s with occasional PACs. She denies any feelings of palpitations at this time. Patient advised of plan for discharge and is requesting to wait till a little later in the morning so that she can call her family to pick her up. Patient states her son who will be picking her up has a history of a renal transplant she would like to let him sleep a little longer. - Vital Signs Vital signs: Temp Pulse Resp BP Pulse Ox 97.3 F 62 19 174/59 H 97 11/11/17 01:05 11/11/17 01:05 11/11/17 04:01 11/11/17 04:01 11/11/17 04:01 - Laboratory Result Diagrams: 11/11/17 00:20 11/11/17 00:20 Laboratory results interpreted by me: 11/11/17 11/11/17 00:20 01:30 Carbon Dioxide 32 H BUN 24 H Est GFR (Non-Af Amer) 56 L Urine Protein 100 H Ur Leukocyte Esterase TRACE H Labs- Entire Visit 11/11/17 11/11/17 11/11/17 00:20 00:20 00:20 WBC 7.6 RBC 4.22 Hgb 12.2 Hct 37.0 MCV 88 MCH 28.9 MCHC 33.0 RDW 13.7 Plt Count 260 Seg Neutrophils % 63.6 Lymphocytes % 27.0 Monocytes % 6.4 Eosinophils % 1.9 Basophils % 1.1 Absolute Neutrophils 4.8 Absolute Lymphocytes 2.0 Absolute Monocytes 0.5 Absolute Eosinophils 0.1 Absolute Basophils 0.1 PT 13.3 INR 0.96 APTT 33.6 Sodium 144.7 Potassium 4.3 Chloride 100 Carbon Dioxide 32 H Anion Gap 13 BUN 24 H Creatinine 0.96 Est GFR ( Amer) > 60 Est GFR (Non-Af Amer) 56 L Glucose 91 Calcium 9.8 Magnesium 2.0 Total Bilirubin 0.3 Direct Bilirubin 0.3 Neonat Total Bilirubin Not Reportable Neonat Direct Bilirubin Not Reportable Neonat Indirect Bili Not Reportable AST 25 ALT 24 Alkaline Phosphatase 60 Creatine Kinase 60 CK-MB (CK-2) Troponin I Total Protein 6.6 Albumin 4.0 TSH Urine Color Urine Appearance Urine pH Ur Specific [place] Urine Protein Urine Glucose (UA) Urine Ketones Urine Blood Urine Nitrite Urine Bilirubin Urine Urobilinogen Ur Leukocyte Esterase Urine WBC (Auto) Urine RBC (Auto) U Hyaline Cast (Auto) Squamous Epi Cells Auto Urine Mucus (Auto) Urine Ascorbic Acid 11/11/17 11/11/17 11/11/17 00:20 00:20 01:30 WBC RBC Hgb Hct MCV MCH MCHC RDW Plt Count Seg Neutrophils % Lymphocytes % Monocytes % Eosinophils % Basophils % Absolute Neutrophils Absolute Lymphocytes Absolute Monocytes Absolute Eosinophils Absolute Basophils PT INR APTT Sodium Potassium Chloride Carbon Dioxide Anion Gap BUN Creatinine Est GFR ( Amer) Est GFR (Non-Af Amer) Glucose Calcium Magnesium Total Bilirubin Direct Bilirubin Neonat Total Bilirubin Neonat Direct Bilirubin Neonat Indirect Bili AST ALT Alkaline Phosphatase Creatine Kinase CK-MB (CK-2) 1.55 Troponin I 0.027 Total Protein Albumin TSH 2.75 Urine Color YELLOW Urine Appearance CLEAR Urine pH 5.0 Ur Specific [place] 1.014 Urine Protein 100 H Urine Glucose (UA) NEGATIVE Urine Ketones NEGATIVE Urine Blood NEGATIVE Urine Nitrite NEGATIVE Urine Bilirubin NEGATIVE Urine Urobilinogen NEGATIVE Ur Leukocyte Esterase TRACE H Urine WBC (Auto) 2 Urine RBC (Auto) 1 U Hyaline Cast (Auto) 1 Squamous Epi Cells Auto <1 Urine Mucus (Auto) RARE Urine Ascorbic Acid NEGATIVE - Diagnostic Test Radiology reviewed: Pending, Image reviewed Discharge - Discharge Clinical Impression: Palpitations, Pruritus Condition: Stable Disposition: HOME, SELF-CARE Instructions: Palpitations (Irregular or Rapid Heartrate) ([facility]) Additional Instructions: Return immediately for any new or worsening symptoms Followup with your primary care provider, call tomorrow to make a followup appointment Follow-up with your aircraft painter for a recheck. Call their in the morning to make a followup appointment Referrals: NATHANIEL MOSES PA-C [Primary Care Provider] - Follow up tomorrow
[2017-11-11 01:20] LABS: ABSOLUTE BASOPHILS # (AUTO) 0.1 10^3/uL (0.0-0.2); ABSOLUTE EOSINOPHILS # (AUTO) 0.1 10^3/uL (0.0-0.6); ABSOLUTE MONOCYTES (AUTO) 0.5 10^3/uL (0.1-1.4); ABSOLUTE NEUT (AUTO) 4.8 10^3/uL (1.7-8.2); BASOPHILS % (AUTO) 1.1 % (0-2); EOSINOPHILS % (AUTO) 1.9 % (0-6); HEMOGLOBIN 12.2 g/dL (12.0-15.5); MEAN CORPUSCULAR HEMOGLOBIN 28.9 pg (27.0-33.4); MEAN CORPUSCULAR VOLUME 88 fl (80-97); MONOCYTES % (AUTO) 6.4 % (3-13); PLATELET COUNT 260 10^3/uL (150-450); RED BLOOD COUNT 4.22 10^6/uL (3.72-5.28); RED CELL DISTRIBUTION WIDTH 13.7 % (11.5-14.0); SEGMENTED NEUTROPHILS % (AUTO) 63.6 % (42-78); TOTAL CELLS COUNTED % (AUTO) 100 %; WHITE BLOOD COUNT 7.6 10^3/uL (4.0-10.5)
[2017-11-11 01:22] LABS: INTERNATIONAL RATION (INR) 0.96; PROTHROMBIN TIME 13.3 SEC (11.4-15.4)
[2017-11-11 01:23] LABS: PARTIAL THROMBOPLASTIN TIME 33.6 SEC (23.5-35.8)
[2017-11-11] MEDS ORDERED: DIPHENHYDRAMINE HCL 50 MG/ML VIAL IV ONE (01:38)
[2017-11-11 01:43] LABS: APPEARANCE,URINE CLEAR; BILIRUBIN,URINE NEGATIVE (NEGATIVE); COLOR,URINE YELLOW; GLUCOSE, URINE NEGATIVE (NEGATIVE); KETONES,URINE NEGATIVE (NEGATIVE); LEUKOCYTE ESTERASE,URINE TRACE (NEGATIVE); NITRITE,URINE NEGATIVE (NEGATIVE); PROTEIN,URINE 100 mg/dL (NEGATIVE); URINE SPECIFIC GRAVITY 1.014; UROBILINOGEN,URINE NEGATIVE mg/dL (<2.0)
[2017-11-11 01:54] LABS: ALANINE AMINOTRANSFERASE 24 U/L (9-52); ALKALINE PHOSPHATASE 60 U/L (38-126); ANION GAP 13 (5-19); ASPARTATE AMINO TRANSFERASE 25 U/L (14-36); BILIRUBIN,DIRECT 0.3 mg/dL (0.0-0.4); BILIRUBIN,TOTAL 0.3 mg/dL (0.2-1.3); BLOOD UREA NITROGEN 24 mg/dL (7-20); CALCIUM 9.8 mg/dL (8.4-10.2); CARBON DIOXIDE 32 mmol/L (22-30); CHLORIDE 100 mmol/L (98-107); CREATINE KINASE 60 U/L (30-135); GLUCOSE 91 mg/dL (75-110); POTASSIUM 4.3 mmol/L (3.6-5.0); SODIUM 144.7 mmol/L (137-145); TOTAL PROTEIN 6.6 g/dL (6.3-8.2)
[2017-11-11 02:06] LABS: TROPONIN I 0.027 ng/mL
[2017-11-11 02:08] LABS: CREATINE KINASE MB 1.55 ng/mL (<4.55)
--- NOTE | 2017-11-11 03:51 | RADIOLOGY REPORT (SQ) ---
EXAM DESCRIPTION: CHEST 2 VIEWS CLINICAL HISTORY: cough, cp COMPARISON: None. FINDINGS: Frontal and lateral views of the chest. Atherosclerotic calcification tortuosity of thoracic aorta. Heart is not enlarged. No consolidation, pneumothorax, or pleural effusion. Hyperinflation. Degenerative change of the spine. Upper abdominal soft tissues are unremarkable. Leads overlie the chest. IMPRESSION: 1. No acute pulmonary process identified. Obstructive lung disease.
[2017-11-11 05:45] VITALS: BP 163/56
--- NOTE | 2017-11-11 07:37 | EKG REPORT ---
SEVERITY:- ABNORMAL ECG - SINUS RHYTHM ATRIAL PREMATURE COMPLEX NONSPECIFIC INTRAVENTRICULAR CONDUCTION DELAY PROBABLE LEFT VENTRICULAR HYPERTROPHY : Confirmed by: Saurabh Monroe MD 11-Nov-2017 07:37:02
== END 2017-11-11 07:45 | disposition home or self-care (01) ==
LOC: ER 00:40
DX: I49.1 Atrial premature depolarization (principal); R00.2 Palpitations; L29.9 Pruritus, unspecified; R30.0 Dysuria; R05 Cough; I10 Essential (primary) hypertension; I25.2 Old myocardial infarction; F17.210 Nicotine dependence, cigarettes, uncomplicated; J44.9 Chronic obstructive pulmonary disease, unspecified; Z88.8 Allergy status to other drugs, medicaments and biological substances; Z88.1 Allergy status to other antibiotic agents; Z88.0 Allergy status to penicillin; Z88.5 Allergy status to narcotic agent; Z85.828 Personal history of other malignant neoplasm of skin; Z95.5 Presence of coronary angioplasty implant and graft
CPT/HCPCS: 93005; 99285; 96374; 36415; 87086; 82553; 82550; 83735; 84443; 85025; 85610; 85730; 80053; 81001; 84484; 71046; 93010; A9270; J1200

== ENCOUNTER 2017-12-28 20:19 | Emergency (ER) | payer OTHER ==
--- NOTE | 2017-12-28 20:33 | ER Document Report ---
Doctor's Note Notes: 12/28/17 20:32 Went to evaluate the patient after she came in by EMS, introduced myself, patient states "I don't want a PA I want a Doc". She repeated this. I explained that she might have a slightly longer wait as currently the doctors were not available, but patient persists. Chart is next on the rack.
[2017-12-28] MEDS ORDERED: METOCLOPRAMIDE HCL INJ/PF 10 MG/2 ML SDV IV ONE (21:07)
[2017-12-28] MEDS ORDERED: KETOROLAC TROMETHAMINE INJ/PF 30 MG/1 ML SDV IV ONE (21:07)
--- NOTE | 2017-12-28 21:08 | ER Document Report ---
ED General - General Chief Complaint: Abdominal Pain Stated Complaint: ABDOMINAL PAIN Time Seen by Provider: 12/28/17 20:26 Notes: The patient is an 82 year old female with a past medical history of hypertension , COPD with oxygen dependence who presents with multiple complaints. Her main concern is left upper abdominal pain that she states has been progressively worsening over the last 24 hours. He describes as an aching, stabbing pain. Coughing or touching the area worsens the pain. She does note that she has had a productive cough with some increased shortness of breath over the same period of time. She denies any pleuritic pain. No history of DVT or pulmonary embolus. No hemoptysis or use of supplemental estrogen. She has not seen her general doctor regarding today's concerns. She has not noted that anything seems to improve her symptoms. She also complains of generalized body aches which she states has been present for quite some time but again worsened over the last 24-48 hours. TRAVEL OUTSIDE OF THE [place] IN LAST 30 DAYS: No - Related Data Allergies/Adverse Reactions: prednisone [Prednisone] Allergy (Unknown, Verified 10/07/17 14:12) cephalexin [Cephalexin] Allergy (Verified 10/07/17 14:12) Cephalosporins Allergy (Verified 10/07/17 14:12) ciprofloxacin [From Cipro] Allergy (Verified 10/07/17 14:12) cortisone [Cortisone] Allergy (Verified 10/07/17 14:12) Penicillins Allergy (Verified 10/07/17 14:12) phenazopyridine [Phenazopyridine] Allergy (Verified 10/07/17 14:12) sulfamethoxazole [From Bactrim] Allergy (Verified 10/07/17 14:12) tramadol HCl [From Ultram] Allergy (Verified 10/07/17 14:12) trimethoprim [From Bactrim] Allergy (Verified 10/07/17 14:12) Past Medical History - General Information source: Patient - Social History Smoking Status: Never Smoker Frequency of alcohol use: None Drug Abuse: None Lives with: Family Family History: Reviewed & Not Pertinent, DM, Hypertension Patient has suicidal ideation: No Patient has homicidal ideation: No - Past Medical History Cardiac Medical History: Reports: Hx Heart Attack - 10/2014, Hx Hypercholesterolemia, Hx Hypertension Pulmonary Medical History: Reports: Hx Asthma, Hx COPD, Hx Pneumonia Neurological Medical History: Reports: 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 , speech deficit Renal/ Medical History: Denies: Hx Peritoneal Dialysis Malignancy Medical History: Reports: Hx Skin Cancer GI Medical History: Reports: Hx Crohn's Disease, Hx Gastroesophageal Reflux Disease, Hx Hiatal Hernia, Hx Ulcer, Hx Ulcerative Colitis Musculoskeltal Medical History: Reports Hx Arthritis Psychiatric Medical History: Reports: Hx Depression Past Surgical History: Reports: Hx Abdominal Surgery - umbilical hernia, Hx Cardiac Catheterization - stent x 2, Hx Cardiac Surgery - Stent, Hx Coronary Stent - Immunizations Hx Diphtheria, Pertussis, Tetanus Vaccination: Yes Hx Pneumococcal Vaccination: 07/08/11 Review of Systems - Review of Systems Notes: Constitutional: Negative for fever. HENT: Negative for sore throat. Eyes: Negative for visual changes. Cardiovascular: Negative for chest pain. Respiratory: Positive for coughing and sputum production Gastrointestinal: Positive for abdominal pain Genitourinary: Negative for dysuria. Musculoskeletal: Negative for back pain. Skin: Negative for rash. Neurological: Negative for headaches, weakness or numbness. 10 point ROS negative except as marked above and in HPI. Physical Exam - Vital signs Vitals: Temp Pulse Resp BP Pulse Ox 98.5 F 71 20 153/71 H 92 12/28/17 20:27 12/28/17 20:27 12/28/17 20:27 12/28/17 20:27 12/28/17 20:27 Interpretation: Hypertensive Notes: PHYSICAL EXAMINATION: GENERAL: Well-appearing, well-nourished and in no acute distress. HEAD: Atraumatic, normocephalic. EYES: Pupils equal round and reactive to light, extraocular movements intact, sclera anicteric, conjunctiva are normal. ENT: nares patent, oropharynx clear without exudates. Moist mucous membranes. NECK: Normal range of motion, supple without lymphadenopathy LUNGS: Breath sounds clear to auscultation bilaterally and equal. No wheezes rales or rhonchi. HEART: Regular rate and rhythm without murmurs Chest wall: Pain on palpation of the left lower ribs ABDOMEN: Soft, mild left upper quadrant abdominal tenderness but no other areas of localized abdominal tenderness, normoactive bowel sounds. No guarding, no rebound. No masses appreciated. EXTREMITIES: Normal range of motion, no pitting or edema. No cyanosis. NEUROLOGICAL: No focal neurological deficits. Moves all extremities spontaneously and on command. PSYCH: Normal mood, normal affect. SKIN: Warm, Dry, normal turgor, no rashes or lesions noted. Course - Re-evaluation Re-evalutation: 12/28/17 21:08 Patient presents with multiple complaints although her main issue appears to be upper abdominal pain that has been ongoing for some time but much worse over the last 24 hours. She describes her pain as being mostly located to her left upper quadrant and epigastric region. Mild tenderness to palpation of these areas but the abdomen is otherwise benign, no surgical findings. The patient also complain of diffuse body pain, states she gets this way when she is sick. Will obtain basic laboratories, CT abdomen pelvis, chest x-ray as patient has an obvious cough on examination and reassess. 12/29/17 00:30 Labs overall unremarkable although CT the abdomen pelvis does note a left lingular pneumonia which could account for patient's generalized myalgias and fatigue as well as cough. Will start on doxycycline as she is allergic to the fluoroquinolones. She is otherwise well in appearance, up walking around in the emergency department, labs otherwise unremarkable I think she is appropriate for discharge home. At this time will discharge with return precautions and follow-up recommendations. Verbal discharge instructions given a the bedside and opportunity for questions given. Medication warnings reviewed. Patient is in agreement with this plan and has verbalized understanding of return precautions and the need for primary care follow-up in the next 24-72 hours. - Vital Signs Vital signs: Temp Pulse Resp BP Pulse Ox 97.7 F 60 20 163/63 H 95 12/29/17 00:50 12/29/17 00:50 12/29/17 00:50 12/29/17 00:50 12/29/17 00:50 - Laboratory Result Diagrams: 12/28/17 21:41 12/28/17 21:41 Laboratory results interpreted by me: 12/28/17 12/28/17 12/28/17 21:41 21:41 21:46 Hgb 11.8 L Hct 35.4 L Carbon Dioxide 33 H BUN 26 H Est GFR (Non-Af Amer) 53 L Glucose 146 H Total Protein 6.1 L Urine Protein 100 H - Diagnostic Test Radiology reviewed: Image reviewed, Reports reviewed Radiology results interpreted by me: 12/29/17 00:30 Chest x-ray: No acute infiltrate or pneumothorax Discharge - Discharge Clinical Impression: Lingular pneumonia, Body aches, Tobacco abuse, Cough Condition: Good Disposition: HOME, SELF-CARE Additional Instructions: You have been diagnosed with a pneumonia. It is very important that you take all of your antibiotics until they are gone even if you are feeling better. Please return to the emergency department immediately if you began having worsening shortness of breath, become confused, have worsening pain, pass out, have persistent vomiting that prevents you from being able to drink fluids for more than 12 hours, or have any other symptoms that are worrisome to you. Please follow-up with your primary care doctor in the next 1-2 days. Prescriptions: Doxycycline Hyclate 100 mg PO BID #14 capsule Referrals: NATHANIEL MOSES PA-C [Primary Care Provider] - Follow up in 3-5 days
[2017-12-28 21:50] LABS: ABSOLUTE BASOPHILS # (AUTO) 0.1 10^3/uL (0.0-0.2); ABSOLUTE EOSINOPHILS # (AUTO) 0.1 10^3/uL (0.0-0.6); ABSOLUTE LYMPHOCYTES (AUTO) 1.6 10^3/uL (0.5-4.7); ABSOLUTE MONOCYTES (AUTO) 0.4 10^3/uL (0.1-1.4); EOSINOPHILS % (AUTO) 1.3 % (0-6); HEMATOCRIT 35.4 % (36.0-47.0); HEMOGLOBIN 11.8 g/dL (12.0-15.5); LYMPHOCYTES % (AUTO) 25.7 % (13-45); MEAN CORPUSCULAR HEMOGLOBIN 28.8 pg (27.0-33.4); MEAN CORPUSCULAR HGB CONC 33.3 g/dL (32.0-36.0); MEAN CORPUSCULAR VOLUME 86 fl (80-97); MONOCYTES % (AUTO) 6.5 % (3-13); PLATELET COUNT 199 10^3/uL (150-450); RED CELL DISTRIBUTION WIDTH 13.6 % (11.5-14.0); SEGMENTED NEUTROPHILS % (AUTO) 65.5 % (42-78); TOTAL CELLS COUNTED % (AUTO) 100 %
--- NOTE | 2017-12-28 21:59 | RADIOLOGY REPORT (SQ) ---
EXAM DESCRIPTION: CHEST SINGLE VIEW COMPLETED DATE/TIME: 12/28/2017 9:43 pm REASON FOR STUDY: left lower rib pain COMPARISON: Chest x-ray 11/11/2017. EXAM PARAMETERS: NUMBER OF VIEWS: One view. TECHNIQUE: Single frontal radiographic view of the chest acquired. RADIATION DOSE: NA LIMITATIONS: None. FINDINGS: LUNGS AND PLEURA: No consolidation, pneumothorax or pleural effusion. Hyperlucent lungs a re suggestive of emphysema. MEDIASTINUM AND HILAR STRUCTURES: No masses. Contour normal. HEART AND VASCULAR STRUCTURES: Heart normal in size. Normal vasculature. BONES: No acute findings. HARDWARE: None in the chest. IMPRESSION: No acute radiographic finding in the chest. Emphysema. TECHNICAL DOCUMENTATION: JOB ID: [id number] 2010 [employer]- All Rights Reserved Reading location - IP/workstation name: [email or web address]
[2017-12-28 22:03] LABS: ALANINE AMINOTRANSFERASE 23 U/L (9-52); ALBUMIN 3.8 g/dL (3.5-5.0); ALKALINE PHOSPHATASE 58 U/L (38-126); ANION GAP 10 (5-19); ASPARTATE AMINO TRANSFERASE 18 U/L (14-36); BILIRUBIN,DIRECT 0.4 mg/dL (0.0-0.4); BILIRUBIN,TOTAL 0.4 mg/dL (0.2-1.3); BLOOD UREA NITROGEN 26 mg/dL (7-20); CALCIUM 9.6 mg/dL (8.4-10.2); CARBON DIOXIDE 33 mmol/L (22-30); CHLORIDE 100 mmol/L (98-107); GLUCOSE 146 mg/dL (75-110); POTASSIUM 4.6 mmol/L (3.6-5.0); SODIUM 142.6 mmol/L (137-145); TOTAL PROTEIN 6.1 g/dL (6.3-8.2)
[2017-12-28 23:07] LABS: APPEARANCE,URINE CLEAR; BILIRUBIN,URINE NEGATIVE (NEGATIVE); COLOR,URINE YELLOW; GLUCOSE, URINE NEGATIVE (NEGATIVE); KETONES,URINE NEGATIVE (NEGATIVE); LEUKOCYTE ESTERASE,URINE NEGATIVE (NEGATIVE); NITRITE,URINE NEGATIVE (NEGATIVE); PROTEIN,URINE 100 mg/dL (NEGATIVE); URINE SPECIFIC GRAVITY 1.017; UROBILINOGEN,URINE NEGATIVE mg/dL (<2.0)
--- NOTE | 2017-12-29 | RADIOLOGY REPORT (SQ) ---
EXAM DESCRIPTION: CT ABDOMEN PELVIS WITH IV CONTRAST COMPLETED DATE/TME: 12/28/2017 21:06 CLINICAL HISTORY: 82 years Female, generalized abodminal pain Comparison: None. Technique: IV contrast. Coronal and sagittal reformat. This exam was performed according to our departmental dose-optimization program, which includes automated exposure control, adjustment of the mA and/or kV according to patient size and/or use of iterative reconstruction technique.[facility]: Dose Right [facility]: CareDose [facility]: Dose Right [facility]: Teradose 4D [facility]: [employer] LIMITATIONS: None Findings: Small streaky opacity of the lingula. No ascites. Mild disc desiccation, atherosclerosis, moderate coronary arterial calcification, small left inguinal fat only hernia normal appendix. Moderate L5-S1 disc bulge. Diffuse demineralization. Inferior thorax, liver, gallbladder, pancreas, spleen, adrenals, renal system, gastrointestinal tract, pelvic organs, lymphatics, vasculature, and musculoskeleton appear otherwise unremarkable. IMPRESSION: Small lingular pneumonia/atelectasis. No acute abdominal pelvic findings.
[2017-12-29] MEDS ORDERED: DOXYCYCLINE HYCLATE 100 MG TABLET PO ONE (00:25)
[2017-12-29 01:21] VITALS: BP 163/63
== END 2017-12-29 01:00 | disposition home or self-care (01) ==
LOC: ER 20:19
DX: J18.8 Other pneumonia, unspecified organism (principal); M79.1 Myalgia; I10 Essential (primary) hypertension; R10.12 Left upper quadrant pain; J44.9 Chronic obstructive pulmonary disease, unspecified; E78.00 Pure hypercholesterolemia, unspecified; Z99.81 Dependence on supplemental oxygen; Z88.0 Allergy status to penicillin; Z88.6 Allergy status to analgesic agent; I25.2 Old myocardial infarction
CPT/HCPCS: 99285; 96374; 96375; 36415; 87086; 83690; 85025; 80053; 81001; 84484; 71045; 74177; A9270; J1885; J2765

== ENCOUNTER 2018-01-24 17:33 | Emergency (ER) | payer OTHER ==
--- NOTE | 2018-01-24 19:35 | ER Document Report ---
ED Extremity Problem, Lower - General Chief Complaint: Leg Pain Stated Complaint: LEG PAIN Time Seen by Provider: 01/24/18 18:32 Mode of Arrival: Medic Information source: Patient Notes: 82-year-old female presented to ED for complaint of right leg pain after tripping over some wires in her long on her lawn yesterday. She states she has a large bruise and pain to the back of the right leg and she is worried that she might have a blood clot. Patient has a history of an TX with stents, a stroke, pneumonia, bronchitis, COPD, cancer, ulcerative colitis, Graves' disease , kidney insufficiency, blood pressure, and cholesterol. Due to this extensive history we will get a Doppler to the right leg to rule out DVTs. She does have a superficial hematoma with pain to the area. TRAVEL OUTSIDE OF THE [place] IN LAST 30 DAYS: No - HPI Patient complains to provider of: Injury, Pain, Swelling Location: Leg - Right Occurred: Yesterday Where: Home, Outdoors Onset/Duration: Gradual Quality of pain: Cramping, Sharp Severity: Moderate Pain Level: 2 Context: Other - Tripped over a wire in her yard Recent injury: Yes Associated symptoms: Painful ambulation Exacerbated by: Hanging down, Movement, Walking Relieved by: Nothing - Related Data Allergies/Adverse Reactions: prednisone [Prednisone] Allergy (Unknown, Verified 10/07/17 14:12) cephalexin [Cephalexin] Allergy (Verified 10/07/17 14:12) Cephalosporins Allergy (Verified 10/07/17 14:12) ciprofloxacin [From Cipro] Allergy (Verified 10/07/17 14:12) cortisone [Cortisone] Allergy (Verified 10/07/17 14:12) Penicillins Allergy (Verified 10/07/17 14:12) phenazopyridine [Phenazopyridine] Allergy (Verified 10/07/17 14:12) sulfamethoxazole [From Bactrim] Allergy (Verified 10/07/17 14:12) tramadol HCl [From Ultram] Allergy (Verified 10/07/17 14:12) trimethoprim [From Bactrim] Allergy (Verified 10/07/17 14:12) Past Medical History - General Information source: Patient - Social History Smoking Status: Current Some Day Smoker Cigarette use (# per day): Yes Chew tobacco use (# tins/day): No Frequency of alcohol use: None Drug Abuse: None Lives with: Alone Family History: Reviewed & Not Pertinent, DM, Hypertension Patient has suicidal ideation: No Patient has homicidal ideation: No - Past Medical History Cardiac Medical History: Reports: Hx Heart Attack - 10/2014, Hx Hypercholesterolemia, Hx Hypertension Pulmonary Medical History: Reports: Hx COPD, Hx Pneumonia EENT Medical History: Reports: None Neurological Medical History: Reports: 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 , speech deficit Endocrine Medical History: Reports: Hx Graves' Disease Renal/ Medical History: Reports: Hx Renal Insufficiency Malignancy Medical History: Reports: Hx Skin Cancer GI Medical History: Reports: Hx Crohn's Disease, Hx Gastroesophageal Reflux Disease, Hx Hiatal Hernia, Hx Ulcer, Hx Ulcerative Colitis, Hx Colonoscopy Musculoskeletal Medical History: Reports Hx Arthritis Skin Medical History: Reports None Psychiatric Medical History: Reports: Hx Depression Traumatic Medical History: Reports: None Infectious Medical History: Reports: None Past Surgical History: Reports: Hx Cardiac Catheterization - stent x 2, Hx Coronary Stent, Hx Umbilical Hernia, Other - Skin cancer - Immunizations Hx Diphtheria, Pertussis, Tetanus Vaccination: Yes Hx Pneumococcal Vaccination: 07/08/11 Review of Systems - Review of Systems Constitutional: No symptoms reported EENT: No symptoms reported Cardiovascular: No symptoms reported Respiratory: No symptoms reported Gastrointestinal: No symptoms reported Genitourinary: No symptoms reported Female Genitourinary: No symptoms reported Musculoskeletal: No symptoms reported Skin: No symptoms reported Hematologic/Lymphatic: No symptoms reported Neurological/Psychological: No symptoms reported Physical Exam - Vital signs Vitals: Temp Pulse Resp BP Pulse Ox 98.1 F 72 18 149/67 H 94 01/24/18 17:54 01/24/18 17:54 01/24/18 17:54 01/24/18 17:54 01/24/18 17:54 Interpretation: Normal - General General appearance: Appears well, Alert - HEENT Head: Normocephalic, Atraumatic Eyes: Normal Pupils: PERRL - Respiratory Respiratory status: No respiratory distress Chest status: Nontender Breath sounds: Normal Chest palpation: Normal - Cardiovascular Rhythm: Regular Heart sounds: Normal auscultation Murmur: No - Abdominal Inspection: Normal Distension: No distension Bowel sounds: Normal Tenderness: Nontender Organomegaly: No organomegaly - Back Back: Normal, Nontender - Extremities General upper extremity: Normal inspection, Nontender, Normal color, Normal ROM , Normal temperature General lower extremity: Normal color, Normal ROM, Normal temperature, Normal weight bearing. No: Dell's sign Calf: Tender, Ecchymosis - Neurological Neuro grossly intact: Yes Cognition: Normal Orientation: AAOx4 Tiny Coma Scale Eye Opening: Spontaneous Tiny Coma Scale Verbal: Oriented [place] Coma Scale Motor: Obeys Commands [place] Coma Scale Total: 15 Speech: Normal Motor strength normal: LUE, RUE, LLE, RLE Sensory: Normal - Psychological Associated symptoms: Normal affect, Normal mood - Skin Skin Temperature: Warm Skin Moisture: Dry Skin Color: Normal Course - Re-evaluation Re-evalutation: 01/24/18 20:59 Venous Doppler was negative for deep vein thrombosis. She has a superficial hematoma to her right lower leg. She is been given instructions for Tylenol for the discomfort elevate her leg use warm or cold whichever is more comfortable to her and to follow-up with her primary doctor on Saturday. Patient was discharged home with her son. - Vital Signs Vital signs: Temp Pulse Resp BP Pulse Ox 98.2 F 78 16 156/71 H 95 01/24/18 21:04 01/24/18 21:04 01/24/18 21:04 01/24/18 21:04 01/24/18 21:04 - Diagnostic Test Radiology reviewed: Image reviewed, Reports reviewed Discharge - Discharge Clinical Impression: Contusion of right lower arm Qualifiers: Encounter type: initial encounter Qualified Code(s): S50.11XA - Contusion of right forearm, initial encounter Condition: Stable Disposition: HOME, SELF-CARE Additional Instructions: CONTUSION: Your injury has resulted in a contusion -- a crushing of the deep tissues. No injury to important structures was detected during the physician's exam. Contusions vary in the amount of pain they cause, and in the length of time required for healing. Typically, the area will become bruised, and will remain painful to touch for two or three weeks. However, most patients are back to working and playing within a few days. After the initial period of rest and cold-packs, your symptoms (together with the doctor's recommendations) will determine how rapidly you can get back to full activity. Usually this means "do what feels okay, but don't do things that hurt." If re-examination was recommended, it's important to follow up as instructed. Call the doctor or return any time if pain increases, if swelling becomes severe, if you develop numbness or weakness in an injured extremity, or if any other alarming symptoms occur. Venous Doppler was negative for any deep vein thrombosis. You have a contusion or bruise to the back of your leg. The tenderness is due to the bruise to the back of your leg. USE OF TYLENOL (ACETAMINOPHEN): Acetaminophen may be taken for pain relief or fever control. It's much safer than aspirin, offering a wider range of "safe" dosages. It is safe during . Some brand names are Tylenol, Panadol, Datril, Anacin 3, Tempra, and Liquiprin. Acetaminophen can be repeated every four hours. The following are maximum recommended dosages: WEIGHT Dose Drops Elixir Chewable( 80mg) (LBS.) drprs=droppers tsp=teaspoon 6 40 mg 0.4 ml (1/2) 6-11 80 mg 0.8 ml (full) tsp 1 tab 12-16 120 mg 1 1/2 drprs 3/4 tsp 1 1/2 tabs 17-23 160 mg 2 drprs 1 tsp 2 tabs 24-30 240 mg 3 drprs 1 1/2 tsp 3 tabs 30-35 320 mg 2 tsp 4 tabs 36-41 360 mg 2 1/4 tsp 4 1/2 tabs 42-47 400 mg 2 1/2 tsp 5 tabs 48-53 480 mg 3 tsp 6 tabs 54-59 520 mg 3 1/4 tsp 6 1/2 tabs 60-64 560 mg 3 1/2 tsp 7 tabs 65-70 600 mg 3 3/4 tsp 7 1/2 tabs 71-76 640 mg 4 tsp 8 tabs 77-82 720 mg 4 1/2 tsp 9 tabs 83-88 800 mg 5 tsp 10 tabs >89 pounds or adults 650 mg to 900 mg Acetaminophen can be repeated every four hours. Maximum dose not to exceed 4000 mg a day. These maximum recommended dosages are slightly higher than the dosages written on the product container, but these dosages are very safe and below the toxic dosage for acetaminophen. ICE PACKS: Apply ice packs frequently against the painful area. Many different schedules are recommended, such as "20 minutes on, 20 minutes off" or "one hour ice, two hours rest." If you need to work, you may need to go longer between ice treatments. You should plan to have the area ice packed AT LEAST one fourth of the time. The ice should be applied over the wrap, tape, or splint, or over a layer of cloth -- not directly against the skin. Some ice bags have a built-in cloth and can be put directly on the skin. WARM PACKS: After approximately two days, apply gentle heat (such as a heating pad or hot water bottle) for about 20 to 30 minutes about every two hours -- at least four times daily. Warmth and elevation will help you make a more rapid recovery , and will ease the pain considerably. Do not use HOT heat, and never apply heat for longer than 30 minutes. The continuous heat can invisibly damage skin and muscles -- even when no burn is seen on the surface. Damaged muscles can make you MORE sore. FOLLOW-UP CARE: If you have been referred to a physician for follow-up care, call the physician s office for an appointment as you were instructed or within the next two days. If you experience worsening or a significant change in your symptoms, notify the physician immediately or return to the Emergency Department at any time for re-evaluation. These call your primary doctor on Saturday and schedule a follow-up appointment for this bruise to the back of your leg. Please be more careful walking around in your yard so that you do not injure your legs. Forms: Elevated Blood Pressure Referrals: RACHEL MEDRANO FNP [Primary Care Provider] - 01/24/18 8:58 pm
--- NOTE | 2018-01-24 21:12 | RADIOLOGY REPORT (SQ) ---
EXAM DESCRIPTION: VENOUS UNILATERAL LOWER COMPLETED DATE/TIME: 01/24/2018 8:49 pm REASON FOR STUDY: Pain swelling injury right lower extremity COMPARISON: None. TECHNIQUE: Dynamic and static tomlinson scale and color images acquired of the right leg venous system. S elected spectral images acquired with additional compression and augmentation maneuvers. The contrala teral common femoral vein and saphenofemoral junction were also imaged. Images stored on PACS. LIMITATIONS: None. FINDINGS: COMMON FEMORAL: Normal phasicity, compression and augmentation. No visualized echogenic ma terial on tomlinson scale. No defects on color images. FEMORAL: Normal compression and augmentation. No visualized echogenic material on tomlinson scale. No defe cts on color images. POPLITEAL: Normal compression, augmentation. No visualized echogenic material on tomlinson scale. No defec ts on color images. CALF VESSELS: Normal compression, augmentation. No visualized echogenic material on tomlinson scale. No de fects on color images. GSV and SSV: Normal compression, augmentation. No visualized echogenic material on tomlinson scale. No def ects on color images. ANY DEEP VENOUS INSUFFICIENCY: Not evaluated. ANY EVIDENCE OF POPLITEAL CYST: No. OTHER: Deep to the site of reported injury there is a 1 cm subcutaneous heterogeneous fluid, probable hematoma. CONTRALATERAL COMMON FEMORAL VEIN AND SAPHENOFEMORAL JUNCTION: Normal phasicity, compression and augmentation. No visualized echogenic material on tomlinson scale. No de fects on color images. IMPRESSION: No DVT.Deep to the site of reported injury there is a 1 cm subcutaneous heterogeneous fl uid, probable hematoma. TECHNICAL DOCUMENTATION: JOB ID: [id number] [employer]- All Rights Reserved Reading location - IP/workstation name: [email or web address]
[2018-01-24 21:23] VITALS: BP 156/71
== END 2018-01-24 21:23 | disposition home or self-care (01) ==
LOC: ER 17:33
DX: S80.11XA Contusion of right lower leg, initial encounter (principal); M79.601 Pain in right arm; W01.0XXA Fall on same level from slipping, tripping and stumbling without subsequent striking against object, initial encounter; Y92.007 Garden or yard of unspecified non-institutional (private) residence as the place of occurrence of the external cause; I25.2 Old myocardial infarction; J44.9 Chronic obstructive pulmonary disease, unspecified; I10 Essential (primary) hypertension; F17.210 Nicotine dependence, cigarettes, uncomplicated; Z95.5 Presence of coronary angioplasty implant and graft; Z88.8 Allergy status to other drugs, medicaments and biological substances; Z88.1 Allergy status to other antibiotic agents; Z88.0 Allergy status to penicillin; Z88.5 Allergy status to narcotic agent; Z85.828 Personal history of other malignant neoplasm of skin
CPT/HCPCS: 93971; 99284

== ENCOUNTER → 2018-02-05 | Outpatient (CLI) | payer OTHER | LOC: RAD 16:15 | PROVIDERS: ATTEND Nurse Practitioner | DX: Z53.9 Procedure and treatment not carried out, unspecified reason (principal) ==

== ENCOUNTER → 2018-02-05 | Outpatient (CLI) | payer OTHER ==
--- NOTE | 2018-02-05 15:49 | RADIOLOGY REPORT (SQ) ---
EXAM DESCRIPTION: CT HEAD WITH COMPLETED DATE/TIME: 02/05/2018 3:37 pm REASON FOR STUDY: DIZZINESS AND GIDDINESS R42 DIZZINESS AND GIDDINESS COMPARISON: 09/03/2016. TECHNIQUE: Axial images acquired through the brain with intravenous contrast. Images reviewed with b one, brain and subdural windows. Additional sagittal and coronal reconstructions were generated. Carolee ges stored on PACS. All CT scanners at this facility use dose modulation, iterative reconstruction, and/or weight based d osing when appropriate to reduce radiation dose to as low as reasonably achievable (ALARA). [facility]: Dose Right [facility]: CareDose [facility]: Dose Right [facility]: Teradose 4D [facility]: [employer] CONTRAST TYPE AND DOSE: contrast/concentration: Isovue 370.00 mg/ml; Total Contrast Delivered: 50.0 ml; Total Saline Delivered: 55.0 ml RENAL FUNCTION: Creatinine 1.0. RADIATION DOSE: CT Rad equipment meets quality standard of care and radiation dose reduction techniq ues were employed. CTDIvol: 48.5 - 48.5 mGy. DLP: 1660 mGy-cm.. LIMITATIONS: None. FINDINGS: VENTRICLES: Prominent. CEREBRUM: No masses. No hemorrhage. No midline shift. Areas of low density in the white matter mos t likely due to chronic micro-vascular ischemic change. No evidence for acute infarction. No enhanci ng lesions. CEREBELLUM: No masses. No hemorrhage. No alteration of density. Small old infarct in the inferior left cerebellar hemisphere. No evidence for acute infarction. No enhancing lesions. EXTRAAXIAL SPACES: Age-related involutional change. No fluid collections. No masses. ORBITS AND GLOBE: No intra- or extraconal masses. Normal contour of globe without masses. CALVARIUM: No fracture. PARANASAL SINUSES: No fluid or mucosal thickening. SOFT TISSUES: No mass or hematoma. OTHER: No other significant finding. IMPRESSION: CHRONIC CHANGES OF ATROPHY AND MICROVASCULAR ISCHEMIA. 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 NO ACUTE PROCESS. EVIDENCE OF ACUTE STROKE: NO. TECHNICAL DOCUMENTATION: JOB ID: [id number] Quality ID # [id number]: Final reports with documentation of one or more dose reduction techniques (e.g., Au tomated exposure control, adjustment of the mA and/or kV according to patient size, use of iterative reconstruction technique) 2010 [employer]- All Rights Reserved Reading location - IP/workstation name: [email or web address]
== END ==
LOC: RAD 15:04
PROVIDERS: ATTEND Nurse Practitioner
DX: I67.82 Cerebral ischemia (principal); G31.9 Degenerative disease of nervous system, unspecified; R42 Dizziness and giddiness
CPT/HCPCS: 70460; 82565

== ENCOUNTER 2018-02-19 11:42 | Emergency (ER) | payer OTHER ==
--- NOTE | 2018-02-19 12:07 | ER Document Report ---
ED General - General Chief Complaint: Hip Pain Stated Complaint: RIGHT HIP PAIN Time Seen by Provider: 02/19/18 11:56 Notes: Patient says that she is having pain in her lower lumbar back and in the right lower sacroiliac region going down the hip with some tingling in her foot. She says that this has been going on for quite some time and is worse today. She has not fallen and has not injured herself in any way. She needs assistance to walk because it is painful to do so. However, the nurse relates that the patient was able to transfer and walk from the EMS stretcher to the bed in her room. No neurologic deficits. Denies any problems controlling bladder or bowel. Patient has no UTI symptoms. She was treated for a UTI by her primary care provider a week or so ago. Denies any chest pains. Denies any abdominal pains. Denies any difficulty breathing or shortness of breath. TRAVEL OUTSIDE OF THE [place] IN LAST 30 DAYS: No - Related Data Allergies/Adverse Reactions: prednisone [Prednisone] Allergy (Unknown, Verified 10/07/17 14:12) cephalexin [Cephalexin] Allergy (Verified 10/07/17 14:12) Cephalosporins Allergy (Verified 10/07/17 14:12) ciprofloxacin [From Cipro] Allergy (Verified 10/07/17 14:12) cortisone [Cortisone] Allergy (Verified 10/07/17 14:12) Penicillins Allergy (Verified 10/07/17 14:12) phenazopyridine [Phenazopyridine] Allergy (Verified 10/07/17 14:12) sulfamethoxazole [From Bactrim] Allergy (Verified 10/07/17 14:12) tramadol HCl [From Ultram] Allergy (Verified 10/07/17 14:12) trimethoprim [From Bactrim] Allergy (Verified 10/07/17 14:12) Past Medical History - Social History Smoking Status: Current Every Day Smoker Family History: Reviewed & Not Pertinent, DM, Hypertension Patient has suicidal ideation: No Patient has homicidal ideation: No - Past Medical History Cardiac Medical History: Reports: Hx Coronary Artery Disease - Has had a couple of stents placed in her arteries., Hx Heart Attack - 10/2014, Hx Hypercholesterolemia, Hx Hypertension Pulmonary Medical History: Reports: Hx Asthma, Hx COPD, Hx Pneumonia Neurological Medical History: Reports: 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 , speech deficit Endocrine Medical History: Reports: Hx Graves' Disease Renal/ Medical History: Reports: Hx Renal Insufficiency Malignancy Medical History: Reports: Hx Skin Cancer GI Medical History: Reports: Hx Crohn's Disease, Hx Gastroesophageal Reflux Disease, Hx Hiatal Hernia, Hx Ulcer, Hx Ulcerative Colitis, Hx Colonoscopy Musculoskeletal Medical History: Reports Hx Arthritis Psychiatric Medical History: Reports: Hx Depression Past Surgical History: Reports: Hx Abdominal Surgery - umbilical hernia, Hx Cardiac Catheterization - stent x 2, Hx Cardiac Surgery - Stent, Hx Coronary Stent, Hx Umbilical Hernia, Other - Skin cancer - Immunizations Hx Diphtheria, Pertussis, Tetanus Vaccination: Yes Hx Pneumococcal Vaccination: 07/08/11 Review of Systems - Review of Systems Notes: REVIEW OF SYSTEMS: CONSTITUTIONAL : Denies fever. EENT: Denies eye, ear, nose or mouth or throat pain or other symptoms. CARDIOVASCULAR: Denies chest pain. RESPIRATORY: Denies cough, chest congestion, or shortness of breath. GASTROINTESTINAL: Denies abdominal pain or nausea, vomiting, or diarrhea. GENITOURINARY: Denies difficulty or painful urinating, urinary frequency, blood in urine. MUSCULOSKELETAL: See HPI. Denies neck pain. Denies joint pain or swelling. SKIN: Denies rash or skin lesions. NEUROLOGICAL: Denies LOC or altered mental status. Denies headache. Denies sensory loss or motor deficits. Is able to stand and walk around in her room. ALL OTHER SYSTEMS REVIEWED AND NEGATIVE. Physical Exam - Vital signs Interpretation: Normal - Notes Notes: PHYSICAL EXAMINATION: GENERAL: Well-appearing, in no acute distress. Vital signs are all normal. Afebrile. HEAD: Atraumatic, normocephalic. NECK: Normal range of motion, supple. No carotid bruits heard. LUNGS: Breath sounds clear and equal bilaterally. HEART: Regular rate and rhythm without murmurs. ABDOMEN: Soft, nontender. No guarding or rebound. No pulsatile or other masses. No bruits heard. BACK: Tender to palpate over the lower right lumbar and right sacroiliac joint region. Otherwise, no tenderness throughout entire back. EXTREMITIES: Normal range of motion without pain. Pulses palpable in both dorsalis pedis bilaterally. NEUROLOGICAL: Normal speech, normal gait with a slight limp. Normal sensory, motor, and reflex exams. Awake, alert, and oriented x3. PSYCH: Normal mood, normal affect. SKIN: Warm, dry, no rashes. Course - Diagnostic Test Radiology results interpreted by me: 02/19/18 13:36 X-rays of the lumbar spine and right hip show degenerative arthritic changes but otherwise no significant findings. Discharge - Discharge Clinical Impression: Arthritis, lumbar spine, Arthritis of right hip, Sciatica Condition: Stable Disposition: HOME, SELF-CARE Additional Instructions: Arthritis Your symptoms are due to arthritis. Arthritis is an inflammation of the joints. There are many types -- osteoarthritis (due to "wear and tear"), auto- immmune arthritis (such as rheumatoid, lupus, Reid's, and others), and crystal -induced arthritis (such as gout and pseudogout). The physician's examination, combined with laboratory tests, will determine the cause of your arthritis. All types of arthritis are treated with antiinflammatory medications. Other medication may be required for special types of arthritis, or if your problem does not respond to the antiinflammatory medicine. Local warmth may be helpful. Move the involved joints through the full range of motion daily. Mild exercise is usually still possible for most persons with arthritis (ask your physician). Swimming provides good exercise without damaging the joints. Contact the physician if you are worsening in any way. USE OF ACETAMINOPHEN (Tylenol): Acetaminophen may be taken for pain relief or fever control. It's much safer than aspirin, offering a wider range of "safe" dosages. It is safe during . Some brand names are Tylenol, Panadol, Datril, Anacin 3, Tempra, and Liquiprin. Acetaminophen can be repeated every four hours. The following are maximum recommended dosages: WEIGHT Dose Drops Elixir Chewable( 80mg) (LBS.) drprs=droppers tsp=teaspoon >89 pounds or adults 650 mg to 900 mg Acetaminophen can be repeated every four hours. Maximum dose not to exceed 4000 mg a day. These maximum recommended dosages are slightly higher than the dosages written on the product container, but these dosages are very safe and below the toxic dosage for acetaminophen. Follow-up with your primary care provider FOLLOW-UP CARE: If you have been referred to a physician for follow-up care, call the physician s office for an appointment as you were instructed or within the next two days. If you experience worsening or a significant change in your symptoms, notify the physician immediately or return to the Emergency Department at any time for re-evaluation. Referrals: RACHEL MEDRANO, [employer] [Primary Care Provider] - Follow up as needed
--- NOTE | 2018-02-19 12:47 | RADIOLOGY REPORT (SQ) ---
EXAM DESCRIPTION: HIP RIGHT AP/LATERAL COMPLETED DATE/TIME: 02/19/2018 12:38 pm REASON FOR STUDY: Right hip pain, no injury COMPARISON: None. NUMBER OF VIEWS: Two views. TECHNIQUE: AP pelvis and additional frog-leg view of the right hip. LIMITATIONS: None. FINDINGS: MINERALIZATION: Normal. RIGHT HIP: Mild joint space narrowing. Small marginal osteophytes on the femoral head. No fracture or dislocation. LEFT HIP: Mild joint space narrowing. PUBIS AND ISCHIUM: No fracture. PELVIS: No fracture. SACRUM: No fracture or dislocation. No worrisome bone lesions. LOWER LUMBAR SPINE: Lower lumbar degenerative disc changes and spondylosis. SOFT TISSUES: No findings. OTHER: No other significant finding. 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 Lower lumbar degenerative changes. TECHNICAL DOCUMENTATION: JOB ID: [id number] [employer]- All Rights Reserved Reading location - IP/workstation name: [email or web address]
--- NOTE | 2018-02-19 12:49 | RADIOLOGY REPORT (SQ) ---
EXAM DESCRIPTION: L SPINE WHOLE COMPLETED DATE/TIME: 02/19/2018 12:38 pm REASON FOR STUDY: Lumbar back pain, no injury COMPARISON: None. NUMBER OF VIEWS: Five views including obliques. TECHNIQUE: AP, lateral, oblique, and sacral radiographic images acquired of the lumbar spine. LIMITATIONS: None. FINDINGS: MINERALIZATION: Normal. SEGMENTATION: Normal. No transitional anatomy. ALIGNMENT: Normal. VERTEBRAE: No fractures. Bridging osteophytes are present at multiple levels. DISCS: Mild disc space narrowing at L4-5. Disc space narrowing at L5-S1. POSTERIOR ELEMENTS: Hypertrophic facet changes at L5-S1. HARDWARE: None in the spine. PARASPINAL SOFT TISSUES: Normal. PELVIS: Intact as visualized. No fractures or worrisome bone lesions. SI joints intact. OTHER: No other significant finding. IMPRESSION: Degenerative disc disease, spondylosis, and facet arthropathy. TECHNICAL DOCUMENTATION: JOB ID: [id number] [employer]- All Rights Reserved Reading location - IP/workstation name: [email or web address]
[2018-02-19 14:29] VITALS: BP 138/84
== END 2018-02-19 13:50 | disposition home or self-care (01) ==
LOC: ER 11:42
DX: M46.96 Unspecified inflammatory spondylopathy, lumbar region (principal); M16.11 Unilateral primary osteoarthritis, right hip; M54.30 Sciatica, unspecified side; M25.551 Pain in right hip; M54.5 Low back pain; R20.0 Anesthesia of skin; M53.3 Sacrococcygeal disorders, not elsewhere classified; F17.200 Nicotine dependence, unspecified, uncomplicated; I25.10 Atherosclerotic heart disease of native coronary artery without angina pectoris; I25.2 Old myocardial infarction; I10 Essential (primary) hypertension; J44.9 Chronic obstructive pulmonary disease, unspecified
CPT/HCPCS: 72110; 99284

== ENCOUNTER 2018-02-24 18:28 | Emergency (ER) | payer OTHER ==
[2018-02-24] MEDS ORDERED: ASPIRIN 81 MG TABLET, CHEWABLE PO ONE (18:43)
[2018-02-24 18:50] LABS: ABSOLUTE BASOPHILS # (AUTO) 0.1 10^3/uL (0.0-0.2); ABSOLUTE EOSINOPHILS # (AUTO) 0.1 10^3/uL (0.0-0.6); ABSOLUTE LYMPHOCYTES (AUTO) 2.1 10^3/uL (0.5-4.7); ABSOLUTE MONOCYTES (AUTO) 0.6 10^3/uL (0.1-1.4); ABSOLUTE NEUT (AUTO) 5.6 10^3/uL (1.7-8.2); BASOPHILS % (AUTO) 0.9 % (0-2); EOSINOPHILS % (AUTO) 1.2 % (0-6); HEMATOCRIT 38.1 % (36.0-47.0); HEMOGLOBIN 12.5 g/dL (12.0-15.5); LYMPHOCYTES % (AUTO) 24.9 % (13-45); MEAN CORPUSCULAR HEMOGLOBIN 28.1 pg (27.0-33.4); MEAN CORPUSCULAR HGB CONC 32.9 g/dL (32.0-36.0); MEAN CORPUSCULAR VOLUME 86 fl (80-97); MONOCYTES % (AUTO) 6.7 % (3-13); PLATELET COUNT 265 10^3/uL (150-450); RED BLOOD COUNT 4.45 10^6/uL (3.72-5.28); RED CELL DISTRIBUTION WIDTH 14.4 % (11.5-14.0); SEGMENTED NEUTROPHILS % (AUTO) 66.3 % (42-78); TOTAL CELLS COUNTED % (AUTO) 100 %; WHITE BLOOD COUNT 8.5 10^3/uL (4.0-10.5)
[2018-02-24 19:01] LABS: ALANINE AMINOTRANSFERASE 15 U/L (9-52); ALBUMIN 3.8 g/dL (3.5-5.0); ALKALINE PHOSPHATASE 59 U/L (38-126); ANION GAP 11 (5-19); ASPARTATE AMINO TRANSFERASE 19 U/L (14-36); BILIRUBIN,DIRECT 0.2 mg/dL (0.0-0.4); BILIRUBIN,TOTAL 0.2 mg/dL (0.2-1.3); BLOOD UREA NITROGEN 35 mg/dL (7-20); CALCIUM 9.4 mg/dL (8.4-10.2); CARBON DIOXIDE 29 mmol/L (22-30); CHLORIDE 103 mmol/L (98-107); CREATINE KINASE 42 U/L (30-135); GLUCOSE 156 mg/dL (75-110); POTASSIUM 4.1 mmol/L (3.6-5.0); SODIUM 143.4 mmol/L (137-145); TOTAL PROTEIN 6.3 g/dL (6.3-8.2)
--- NOTE | 2018-02-24 19:03 | RADIOLOGY REPORT (SQ) ---
EXAM DESCRIPTION: CHEST SINGLE VIEW COMPLETED DATE/TIME: 02/24/2018 6:56 pm REASON FOR STUDY: cp COMPARISON: 12/28/2017 EXAM PARAMETERS: NUMBER OF VIEWS: One view. TECHNIQUE: Single frontal radiographic view of the chest acquired. RADIATION DOSE: NA LIMITATIONS: None. FINDINGS: LUNGS AND PLEURA: No opacities, masses or pneumothorax. No pleural effusion. MEDIASTINUM AND HILAR STRUCTURES: No masses. Contour normal. HEART AND VASCULAR STRUCTURES: Heart normal in size. Normal vasculature. BONES: No acute findings. HARDWARE: None in the chest. OTHER: No other significant finding. IMPRESSION: NO ACUTE RADIOGRAPHIC FINDING IN THE CHEST. TECHNICAL DOCUMENTATION: JOB ID: [id number] [employer]- All Rights Reserved Reading location - IP/workstation name: [email or web address]
[2018-02-24 19:12] LABS: CREATINE KINASE MB 1.2 ng/mL (<4.55); TROPONIN I 0.021 ng/mL
--- NOTE | 2018-02-24 19:29 | ER Document Report ---
ED Cardiac - General Chief Complaint: Palpitations Stated Complaint: CHEST PAIN Time Seen by Provider: 02/24/18 19:09 Mode of Arrival: Medic Information source: Patient Notes: Patient is an 82-year-old female who presents with chief complaint of rapid heart rate. Patient reports she had a home heart rate monitor which was reading 129 bpm while she was at rest. On EMS arrival patient's heart rate was 120. Patient does have a history of A. fib. Patient denies any chest pain, reports mild shortness of breath that she reports is normal for her. Patient denies any other symptoms. TRAVEL OUTSIDE OF THE [place] IN LAST 30 DAYS: No - Related Data Allergies/Adverse Reactions: prednisone [Prednisone] Allergy (Unknown, Verified 10/07/17 14:12) cephalexin [Cephalexin] Allergy (Verified 10/07/17 14:12) Cephalosporins Allergy (Verified 10/07/17 14:12) ciprofloxacin [From Cipro] Allergy (Verified 10/07/17 14:12) cortisone [Cortisone] Allergy (Verified 10/07/17 14:12) Penicillins Allergy (Verified 10/07/17 14:12) phenazopyridine [Phenazopyridine] Allergy (Verified 10/07/17 14:12) sulfamethoxazole [From Bactrim] Allergy (Verified 10/07/17 14:12) tramadol HCl [From Ultram] Allergy (Verified 10/07/17 14:12) trimethoprim [From Bactrim] Allergy (Verified 10/07/17 14:12) Past Medical History - General Information source: Patient - Social History Smoking Status: Current Every Day Smoker Frequency of alcohol use: None Drug Abuse: None Family History: Reviewed & Not Pertinent, DM, Hypertension Patient has suicidal ideation: No Patient has homicidal ideation: No - Past Medical History Cardiac Medical History: Reports: Hx Atrial Fibrillation, Hx Coronary Artery Disease - Has had a couple of stents placed in her arteries., Hx Heart Attack - 10/2014, Hx Hypercholesterolemia, Hx Hypertension Pulmonary Medical History: Reports: Hx Asthma, Hx COPD, Hx Pneumonia Neurological Medical History: Reports: 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 Denies: Hx Peritoneal Dialysis Malignancy Medical History: Reports: Hx Skin Cancer GI Medical History: Reports: Hx Crohn's Disease, Hx Gastroesophageal Reflux Disease, Hx Hiatal Hernia, Hx Ulcer, Hx Ulcerative Colitis, Hx Colonoscopy Musculoskeletal Medical History: Reports Hx Arthritis Psychiatric Medical History: Reports: Hx Depression Past Surgical History: Reports: Hx Abdominal Surgery - umbilical hernia, Hx Cardiac Catheterization - stent x 2, Hx Cardiac Surgery - Stent, Hx Coronary Stent, Hx Umbilical Hernia, Other - Skin cancer - Immunizations Hx Diphtheria, Pertussis, Tetanus Vaccination: Yes Hx Pneumococcal Vaccination: 07/08/11 Review of Systems - Review of Systems Constitutional: No symptoms reported EENT: No symptoms reported Cardiovascular: Heart racing. denies: Chest pain Respiratory: Short of breath Gastrointestinal: No symptoms reported Genitourinary: No symptoms reported Female Genitourinary: No symptoms reported Musculoskeletal: No symptoms reported Skin: No symptoms reported Hematologic/Lymphatic: No symptoms reported Neurological/Psychological: No symptoms reported Physical Exam - Vital signs Vitals: Temp Pulse Resp BP Pulse Ox 97.8 F 93 18 152/72 H 94 02/24/18 18:30 02/24/18 18:30 02/24/18 18:30 02/24/18 18:30 02/24/18 18:30 - Notes Notes: PHYSICAL EXAMINATION: GENERAL: Well-appearing, well-nourished and in no acute distress. HEAD: Atraumatic, normocephalic. EYES: Pupils equal round and reactive to light, extraocular movements intact, conjunctiva are normal. ENT: Nares patent, oropharynx clear without exudates. Moist mucous membranes. NECK: Normal range of motion, supple without lymphadenopathy LUNGS: Breath sounds clear to auscultation bilaterally and equal. No wheezes rales or rhonchi. HEART: Regular rate and rhythm without murmurs ABDOMEN: Soft, nontender, nondistended abdomen. No guarding, no rebound. No masses appreciated. Female : deferred Musculoskeletal: Normal range of motion, no pitting or edema. No cyanosis. NEUROLOGICAL: Cranial nerves grossly intact. Normal speech, normal gait. Normal sensory, motor exams PSYCH: Normal mood, normal affect. SKIN: Warm, Dry, normal turgor, no rashes or lesions noted. Course - Re-evaluation Re-evalutation: Patient with no complaints at the time of assessment. Assessment is unremarkable. CBC is normal, comprehensive metabolic panel with mildly elevated BUN at 35, creatinine is 1.19, chemistry otherwise unremarkable. Initial troponin 0.021. Patient continues to deny any chest pain however she does report mild shortness of breath but again states this is normal for her. Vital signs are stable. 02/24/18 22:06 Repeat troponin is negative. Patient's vital signs have remained stable during her stay, she did have a slight episode of hypertension with a blood pressure of 200/80 however she had not had her nighttime blood pressure medications. Patient was medicated with her nighttime blood pressure medications and blood pressures down to 171/89. Patient's family members are at bedside and patient will be discharged to go home. - Vital Signs Vital signs: Temp Pulse Resp BP Pulse Ox 97.8 F 93 22 H 148/69 H 94 02/24/18 18:30 02/24/18 18:30 02/24/18 19:01 02/24/18 19:01 02/24/18 19:01 - Laboratory Result Diagrams: 02/24/18 18:15 02/24/18 18:15 Laboratory results interpreted by me: 02/24/18 02/24/18 18:15 18:15 RDW 14.4 H BUN 35 H Est GFR ( Amer) 53 L Est GFR (Non-Af Amer) 43 L Glucose 156 H - Diagnostic Test Radiology reviewed: Image reviewed - EKG Interpretation by Me EKG shows normal: Sinus rhythm Rate: Normal When compared to previous EKG there are: No significant change Discharge - Discharge Clinical Impression: Palpitation Condition: Stable Disposition: HOME, SELF-CARE Additional Instructions: Palpitations (Irregular/Rapid Heartrate) Irregular or rapid heartbeat is called "palpitation." To diagnose the cause of palpitation, we have to "catch it in the act" with an EKG. Sinus Tachycardia: This is a rapid (but NORMAL) rhythm that can be due to fever, pain, anxiety, lack of sleep, over-exertion, or drugs. Cold medications, caffeine, and diet pills are particularly likely to cause tachycardia. Usually , all that's required is rest, reassurance, and avoiding caffeine, alcohol, nicotine, and unnecessary medicines. Paroxysmal Atrial Tachycardia (PAT): This abnormally rapid heartbeat is caused by a "short circuit" in the electrical system of the heart. It is not dangerous, unless other heart disease is present. These attacks of PAT may occur occasionally for years. Medication is available for treatment. Paroxysmal Atrial Fibrillation or Atrial Flutter: This is irregular electrical activity in the upper heart chamber. These abnormal rhythms often occur with valve disease or in hearts damaged by hardening of the arteries. These rhythms usually require further testing, for example a cardiac echo. Premature Beats: Extra beats occur more commonly after caffeine, nicotine , alcohol, cold pills, diet pills. Emotional stress or fatigue also provoke them. Extra beats are only dangerous when heart disease is present. They usually need no treatment. If they're frequent, or if evidence of heart disease develops, medication can be given to suppress them. If we were unable to "catch" the palpitations on EKG, you should try to get an EKG immediately if the symptoms begin again. Contact the physician at once if you develop persistent lightheadedness, shortness of breath, chest pain , or swelling of the ankles. Your workup today was unremarkable. We were unable to capture any of the elevated heart rate that you experienced at home. 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 Please call your primary care provider in the morning, let her know you were here so that she can schedule a follow-up appointment for you in the next 2-3 days. Return to the emergency department if you develop worsening symptoms, elevated heart rate, chest pain, shortness of breath or any other symptom that is concerning to you. Referrals: RACHEL MEDRANO FNP [Primary Care Provider] - Follow up as needed
[2018-02-24] MEDS ORDERED: VALSARTAN 160 MG TABLET PO ONE (21:16)
[2018-02-24] MEDS ORDERED: METOPROLOL TARTRATE 50 MG TABLET PO ONE (21:17)
[2018-02-24 22:21] VITALS: BP 171/89
--- NOTE | 2018-02-24 22:54 | EKG REPORT ---
SEVERITY:- ABNORMAL ECG - SINUS RHYTHM RIGHT AXIS DEVIATION NONSPECIFIC T ABNORMALITIES, INFERIOR LEADS : Confirmed by: Eunice Servin 24-Feb-2018 22:53:23
== END 2018-02-24 22:30 | disposition home or self-care (01) ==
LOC: ER 18:28
DX: R00.2 Palpitations (principal); I25.10 Atherosclerotic heart disease of native coronary artery without angina pectoris; I10 Essential (primary) hypertension; Z79.899 Other long term (current) drug therapy; I25.2 Old myocardial infarction; J44.9 Chronic obstructive pulmonary disease, unspecified; R06.02 Shortness of breath; F17.200 Nicotine dependence, unspecified, uncomplicated; Z88.8 Allergy status to other drugs, medicaments and biological substances; Z88.1 Allergy status to other antibiotic agents; Z88.0 Allergy status to penicillin; Z88.5 Allergy status to narcotic agent; Z85.828 Personal history of other malignant neoplasm of skin; Z95.5 Presence of coronary angioplasty implant and graft
CPT/HCPCS: 93005; 99285; 36415; 82553; 82550; 85025; 80053; 84484; 71045; 93010; A9270 ×3

== ENCOUNTER → 2018-03-14 | Outpatient (CLI) | payer OTHER ==
[2018-03-14 16:19] LABS: ANION GAP 12 (5-19); BLOOD UREA NITROGEN 26 mg/dL (7-20); CALCIUM 9.7 mg/dL (8.4-10.2); CARBON DIOXIDE 27 mmol/L (22-30); CHLORIDE 101 mmol/L (98-107); GLUCOSE 87 mg/dL (75-110); POTASSIUM 3.8 mmol/L (3.6-5.0); SODIUM 139.6 mmol/L (137-145)
[2018-03-16 08:38] LABS: CREATININE URINE 138.4 mg/dL (Not Estab.)
[2018-03-16 11:19] LABS: MICROALBUMIN URINE 504.4 ug/mL (Not Estab.)
== END ==
LOC: OD 14:57
PROVIDERS: ATTEND Internal Medicine Nephrology
DX: N18.2 Chronic kidney disease, stage 2 (mild) (principal); R80.9 Proteinuria, unspecified; N25.81 Secondary hyperparathyroidism of renal origin
CPT/HCPCS: 36415; 80048; 82043; 82570; 83970

== ENCOUNTER 2018-03-24 06:50 | Emergency (ER) | payer OTHER ==
--- NOTE | 2018-03-24 09:58 | ER Document Report ---
ED General - General Chief Complaint: Shortness Of Breath Stated Complaint: SHORTNESS OF BREATH Time Seen by Provider: 03/24/18 09:33 Mode of Arrival: Ambulatory Information source: Patient Notes: Patient is a 82 yearold who is only here for the use of oxygen. Her O2 tanks ran out and she needs ot be hooked up to O2 because she is feeling a littlle short of brreath. She states she does not have to use O2 all the time but the heat got to her and so she came to ER for use of the O2. She has no other complaints and states she is at her [facility]. Denies chest pain SOB or fever. TRAVEL OUTSIDE OF THE [place] IN LAST 30 DAYS: No - HPI Onset: Just prior to arrival Onset/Duration: Gradual Quality of pain: No pain Severity: None Associated symptoms: None Exacerbated by: Denies, Other - Not having Oxygen - Related Data Allergies/Adverse Reactions: prednisone [Prednisone] Allergy (Unknown, Verified 03/24/18 06:53) cephalexin [Cephalexin] Allergy (Verified 03/24/18 06:53) Cephalosporins Allergy (Verified 03/24/18 06:53) ciprofloxacin [From Cipro] Allergy (Verified 03/24/18 06:53) cortisone [Cortisone] Allergy (Verified 03/24/18 06:53) Penicillins Allergy (Verified 03/24/18 06:53) phenazopyridine [Phenazopyridine] Allergy (Verified 03/24/18 06:53) sulfamethoxazole [From Bactrim] Allergy (Verified 03/24/18 06:53) tramadol HCl [From Ultram] Allergy (Verified 03/24/18 06:53) trimethoprim [From Bactrim] Allergy (Verified 03/24/18 06:53) Past Medical History - General Information source: Patient - Social History Smoking Status: Current Every Day Smoker Cigarette use (# per day): Yes Chew tobacco use (# tins/day): No Smoking Education Provided: No Frequency of alcohol use: None Drug Abuse: None Lives with: Family Family History: Reviewed & Not Pertinent, DM, Hypertension - Past Medical History Cardiac Medical History: Reports: Hx Atrial Fibrillation, Hx Coronary Artery Disease - Has had a couple of stents placed in her arteries., Hx Heart Attack - 10/2014, Hx Hypercholesterolemia, Hx Hypertension Pulmonary Medical History: Reports: Hx Asthma, Hx COPD, Hx Pneumonia Neurological Medical History: Reports: 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 Denies: Hx Peritoneal Dialysis Malignancy Medical History: Reports: Hx Skin Cancer GI Medical History: Reports: Hx Crohn's Disease, Hx Gastroesophageal Reflux Disease, Hx Hiatal Hernia, Hx Ulcer, Hx Ulcerative Colitis, Hx Colonoscopy Musculoskeletal Medical History: Reports Hx Arthritis Psychiatric Medical History: Reports: Hx Depression Past Surgical History: Reports: Hx Abdominal Surgery - umbilical hernia, Hx Cardiac Catheterization - stent x 2, Hx Cardiac Surgery - Stent, Hx Coronary Stent, Hx Umbilical Hernia, Other - Skin cancer - Immunizations Hx Diphtheria, Pertussis, Tetanus Vaccination: Yes Hx Pneumococcal Vaccination: 07/08/11 Review of Systems - Review of Systems Constitutional: No symptoms reported EENT: No symptoms reported Cardiovascular: No symptoms reported Respiratory: Short of breath Gastrointestinal: No symptoms reported Genitourinary: No symptoms reported Female Genitourinary: No symptoms reported Musculoskeletal: No symptoms reported Skin: No symptoms reported Hematologic/Lymphatic: No symptoms reported Neurological/Psychological: No symptoms reported -: Yes All other systems reviewed and negative Physical Exam - Vital signs Vitals: Temp Pulse Resp BP Pulse Ox 97.8 F 71 23 H 160/64 H 97 03/24/18 07:12 03/24/18 07:12 03/24/18 07:12 03/24/18 07:12 03/24/18 07:12 Interpretation: Hypertensive - Notes Notes: No distress. Well appearing. - General General appearance: Appears well, Alert In distress: None - Respiratory Respiratory status: No respiratory distress Chest status: Nontender Breath sounds: Decreased air movement Chest palpation: Normal - Cardiovascular Rhythm: Regular Heart sounds: Normal auscultation Murmur: No - Neurological Neuro grossly intact: Yes Cognition: Normal Orientation: AAOx4 [place] Coma Scale Eye Opening: Spontaneous Tiny Coma Scale Verbal: Oriented Tiny Coma Scale Motor: Obeys Commands [place] Coma Scale Total: 15 Speech: Normal - Psychological Associated symptoms: Normal affect, Normal mood - Skin Skin Temperature: Warm Skin Moisture: Dry Skin Color: Normal Course - Re-evaluation Re-evalutation: 03/24/18 10:01 Patiednt here for O2 use only and is requesting to leave to go home and get her oxygen tanks filled. - Vital Signs Vital signs: Temp Pulse Resp BP Pulse Ox 97.8 F 71 23 H 160/64 H 97 03/24/18 07:12 03/24/18 07:12 03/24/18 07:12 03/24/18 07:12 03/24/18 07:12 Discharge - Discharge Clinical Impression: Supplemental oxygen dependent Condition: Stable Disposition: HOME, SELF-CARE Instructions: Chronic Obstructive Lung Disease ([facility]) Additional Instructions: Home and continue current meds. If you do not get your Oxygen tanks filled return to ER Referrals: NALLELY GLASER MD [Primary Care Provider] - Follow up as needed
[2018-03-24 15:04] VITALS: BP 164/80
== END 2018-03-24 10:00 | disposition home or self-care (01) ==
LOC: ER 06:50
DX: J44.9 Chronic obstructive pulmonary disease, unspecified (principal); Z99.81 Dependence on supplemental oxygen; F17.210 Nicotine dependence, cigarettes, uncomplicated
CPT/HCPCS: 99284

== ENCOUNTER 2018-04-16 19:17 | Emergency (ER) | payer OTHER ==
[2018-04-16 19:33] VITALS: BP 137/55
--- NOTE | 2018-04-16 20:24 | ER Document Report ---
ED Medical Screen (RME) - General Chief Complaint: Chest Pain Stated Complaint: CHEST PAIN Time Seen by Provider: 04/16/18 19:52 TRAVEL OUTSIDE OF THE [place] IN LAST 30 DAYS: No - HPI Patient complains to provider of: Fever and possible infection Onset: Other - This is an 82-year-old female with a history of CVA in the past that presents for evaluation of recurrent urinary frequency with some associated fevers as well as a sensation of chest tightness at home. Notes that she believes she might have a urinary tract infection though she has a difficulty in telling now because of a previous stroke which she has had. She denies any loss of consciousness, lightheadedness, or other symptoms. - Related Data Allergies/Adverse Reactions: prednisone [Prednisone] Allergy (Unknown, Verified 04/16/18 19:18) cephalexin [Cephalexin] Allergy (Verified 04/16/18 19:18) Cephalosporins Allergy (Verified 04/16/18 19:18) ciprofloxacin [From Cipro] Allergy (Verified 04/16/18 19:18) cortisone [Cortisone] Allergy (Verified 04/16/18 19:18) Penicillins Allergy (Verified 04/16/18 19:18) phenazopyridine [Phenazopyridine] Allergy (Verified 04/16/18 19:18) sulfamethoxazole [From Bactrim] Allergy (Verified 04/16/18 19:18) tramadol HCl [From Ultram] Allergy (Verified 04/16/18 19:18) trimethoprim [From Bactrim] Allergy (Verified 04/16/18 19:18) Past Medical History - Past Medical History Cardiac Medical History: Reports: Hx Atrial Fibrillation, Hx Coronary Artery Disease - Has had a couple of stents placed in her arteries., Hx Heart Attack - 10/2014, Hx Hypercholesterolemia, Hx Hypertension Pulmonary Medical History: Reports: Hx Asthma, Hx COPD, Hx Pneumonia Neurological Medical History: Reports: 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 Denies: Hx Peritoneal Dialysis Malignancy Medical History: Reports: Hx Skin Cancer GI Medical History: Reports: Hx Crohn's Disease, Hx Gastroesophageal Reflux Disease, Hx Hiatal Hernia, Hx Ulcer, Hx Ulcerative Colitis, Hx Colonoscopy Musculoskeltal Medical History: Reports Hx Arthritis Psychiatric Medical History: Reports: Hx Depression Past Surgical History: Reports: Hx Abdominal Surgery - umbilical hernia, Hx Cardiac Catheterization - stent x 2, Hx Cardiac Surgery - Stent, Hx Coronary Stent, Hx Umbilical Hernia, Other - Skin cancer - Immunizations Hx Diphtheria, Pertussis, Tetanus Vaccination: Yes History of Influenza Vaccine for 04/2017 - 09/2017 Season: Yes Influenza Administration Date for 04/2017 - 09/2017 Season: 04/07/17 Physical Exam - Vital signs Vitals: Temp Pulse Resp BP Pulse Ox 98.6 F 80 18 137/55 H 92 04/16/18 19:30 04/16/18 19:30 04/16/18 19:30 04/16/18 19:30 04/16/18 19:30 Course - Re-evaluation Re-evalutation: 04/16/18 20:23 This is an 82-year-old woman with a history of CVA in the past who presents for evaluation of generalized low-grade fevers as well as associated fatigue, and chest tightness. We will initiate broad workup including infectious workup and cardiac workup. Patient has multiple potential underlying causes for her ill feeling. I performed a rapid medical screening examination on this patient will defer further disposition determination workup and labs to next provider. - Vital Signs Vital signs: Temp Pulse Resp BP Pulse Ox 98.6 F 80 18 137/55 H 95 04/16/18 19:30 04/16/18 19:30 04/16/18 19:30 04/16/18 19:30 04/16/18 19:59 Doctor's Discharge - Discharge Referrals: NALLELY GLASER MD [Primary Care Provider] - Follow up as needed
[2018-04-16 20:39] LABS: ABSOLUTE BASOPHILS # (AUTO) 0.1 10^3/uL (0.0-0.2); ABSOLUTE EOSINOPHILS # (AUTO) 0.1 10^3/uL (0.0-0.6); ABSOLUTE LYMPHOCYTES (AUTO) 1.5 10^3/uL (0.5-4.7); ABSOLUTE MONOCYTES (AUTO) 0.4 10^3/uL (0.1-1.4); BASOPHILS % (AUTO) 1.5 % (0-2); EOSINOPHILS % (AUTO) 2.1 % (0-6); HEMATOCRIT 34.6 % (36.0-47.0); HEMOGLOBIN 11.5 g/dL (12.0-15.5); LYMPHOCYTES % (AUTO) 24.6 % (13-45); MEAN CORPUSCULAR HEMOGLOBIN 28.2 pg (27.0-33.4); MEAN CORPUSCULAR HGB CONC 33.2 g/dL (32.0-36.0); MEAN CORPUSCULAR VOLUME 85 fl (80-97); MONOCYTES % (AUTO) 6.9 % (3-13); PLATELET COUNT 238 10^3/uL (150-450); RED BLOOD COUNT 4.08 10^6/uL (3.72-5.28); RED CELL DISTRIBUTION WIDTH 15.4 % (11.5-14.0); SEGMENTED NEUTROPHILS % (AUTO) 64.9 % (42-78); TOTAL CELLS COUNTED % (AUTO) 100 %; WHITE BLOOD COUNT 6.2 10^3/uL (4.0-10.5)
[2018-04-16 20:40] LABS: APPEARANCE,URINE SLIGHTLY-CLOUDY; BILIRUBIN,URINE NEGATIVE (NEGATIVE); GLUCOSE, URINE NEGATIVE (NEGATIVE); KETONES,URINE TRACE mg/dL (NEGATIVE); LEUKOCYTE ESTERASE,URINE TRACE (NEGATIVE); NITRITE,URINE NEGATIVE (NEGATIVE); PROTEIN,URINE 100 mg/dL (NEGATIVE)
[2018-04-16 20:44] LABS: VENOUS BLOOD BASE EXCESS 3.9 mmol/L; VENOUS BLOOD HCO3 30.4 mmol/L (20-32); VENOUS BLOOD PH 7.36 (7.30-7.42)
[2018-04-16 20:45] LABS: COLOR,URINE YELLOW
[2018-04-16 20:52] LABS: ALANINE AMINOTRANSFERASE 27 U/L (9-52); ALBUMIN 3.8 g/dL (3.5-5.0); ALKALINE PHOSPHATASE 54 U/L (38-126); ANION GAP 7 (5-19); ASPARTATE AMINO TRANSFERASE 27 U/L (14-36); BILIRUBIN,DIRECT 0.3 mg/dL (0.0-0.4); BILIRUBIN,TOTAL 0.3 mg/dL (0.2-1.3); BLOOD UREA NITROGEN 27 mg/dL (7-20); CALCIUM 9.5 mg/dL (8.4-10.2); CARBON DIOXIDE 30 mmol/L (22-30); CHLORIDE 102 mmol/L (98-107); GLUCOSE 101 mg/dL (75-110); LIPASE 153.7 U/L (23-300); POTASSIUM 4.9 mmol/L (3.6-5.0); TOTAL PROTEIN 6.3 g/dL (6.3-8.2)
--- NOTE | 2018-04-16 21:27 | RADIOLOGY REPORT (SQ) ---
PROCEDURE: CHEST X-RAY TWO VIEWS CLINICAL HISTORY: fever, short of breath INDICATION: Same as above COMPARISON: 02/24/2018 TECHNIQUE: The study was done on 04/16/2018 at 9:20 PM PA and and lateral chest radiographs were obtained. FINDINGS: There are underlying changes of COPD There are no discrete airspace infiltrates, pneumothoraces or pleural effusions. The pulmonary vascularity is normal The cardiomediastinal silhouette is unremarkable for patient's age and sex. IMPRESSION: There is no acute pleural-parenchymal process seen in the imaged lung infante. Place of interpretation: Teleradiology.
--- NOTE | 2018-04-16 21:30 | ER Document Report ---
ED General - General Chief Complaint: Chest Pain Stated Complaint: CHEST PAIN Time Seen by Provider: 04/16/18 19:52 Notes: 82-year-old female patient emergency department chief complaint of not feeling well. Patient states that she has a urinary tract infection. Complaining of a runny nose, body aches, generally not feeling well. Intermittent chest pain, back pain, joint pain, neck pain, head pain. Patient has a chronic cough. Smokes on a regular basis. History of COPD. TRAVEL OUTSIDE OF THE [place] IN LAST 30 DAYS: No - HPI Onset: Yesterday Onset/Duration: Gradual Quality of pain: Achy Severity: Mild Pain Level: 1 - Related Data Allergies/Adverse Reactions: prednisone [Prednisone] Allergy (Unknown, Verified 04/16/18 19:18) cephalexin [Cephalexin] Allergy (Verified 04/16/18 19:18) Cephalosporins Allergy (Verified 04/16/18 19:18) ciprofloxacin [From Cipro] Allergy (Verified 04/16/18 19:18) cortisone [Cortisone] Allergy (Verified 04/16/18 19:18) Penicillins Allergy (Verified 04/16/18 19:18) phenazopyridine [Phenazopyridine] Allergy (Verified 04/16/18 19:18) sulfamethoxazole [From Bactrim] Allergy (Verified 04/16/18 19:18) tramadol HCl [From Ultram] Allergy (Verified 04/16/18 19:18) trimethoprim [From Bactrim] Allergy (Verified 04/16/18 19:18) Past Medical History - General Information source: Patient - Social History Smoking Status: Current Some Day Smoker Cigarette use (# per day): Yes Frequency of alcohol use: None Drug Abuse: None Lives with: Alone Family History: Reviewed & Not Pertinent, DM, Hypertension Patient has suicidal ideation: No Patient has homicidal ideation: No - Past Medical History Cardiac Medical History: Reports: Hx Atrial Fibrillation, Hx Coronary Artery Disease - Has had a couple of stents placed in her arteries., Hx Heart Attack - 10/2014, Hx Hypercholesterolemia, Hx Hypertension Pulmonary Medical History: Reports: Hx Asthma, Hx COPD, Hx Pneumonia Neurological Medical History: Reports: 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 Denies: Hx Peritoneal Dialysis Malignancy Medical History: Reports: Hx Skin Cancer GI Medical History: Reports: Hx Crohn's Disease, Hx Gastroesophageal Reflux Disease, Hx Hiatal Hernia, Hx Ulcer, Hx Ulcerative Colitis, Hx Colonoscopy Musculoskeletal Medical History: Reports Hx Arthritis Psychiatric Medical History: Reports: Hx Depression Past Surgical History: Reports: Hx Abdominal Surgery - umbilical hernia, Hx Cardiac Catheterization - stent x 2, Hx Cardiac Surgery - Stent, Hx Coronary Stent, Hx Umbilical Hernia, Other - Skin cancer - Immunizations Hx Diphtheria, Pertussis, Tetanus Vaccination: Yes Hx Pneumococcal Vaccination: 07/08/11 Review of Systems - Review of Systems Notes: Constitutional: denies: Chills, Diaphoresis, Malaise, Weakness. Does complain of fevers EENT: denies: Eye discharge, Blurred vision, Tearing, Double vision,. Does complain of sinus pressure, runny nose Cardiovascular: denies: Palpitations, Heart racing, Orthopnea, Dyspnea, Chest pain Respiratory: Does complain of cough, COPD, intermittent shortness of breath Gastrointestinal: denies: Abdominal pain, Diarrhea, Nausea, Vomiting, Black stools, bright red blood in stool Genitourinary: denies: Burning, Dysuria, Discharge, Frequency, Flank pain, Hematuria Musculoskeletal: Patient does complain of body aches, joint pains, chest pain, back pain Hematologic/Lymphatic: denies: Anemia, Easy bleeding, Easy bruising, Blood clots Neurological/Psychological: denies: Confusion, Dementia, Depression, Loss of consciousness Skin: No lesions, no masses, no skin breakdown, no abscesses Physical Exam - Vital signs Vitals: Temp Pulse Resp BP Pulse Ox 98.6 F 80 18 137/55 H 92 04/16/18 19:30 04/16/18 19:30 04/16/18 19:30 04/16/18 19:30 04/16/18 19:30 Interpretation: Normal - General General appearance: Appears well, Alert - HEENT Head: Normocephalic, Atraumatic Eyes: Normal Pupils: PERRL - Respiratory Respiratory status: No respiratory distress Chest status: Nontender Breath sounds: Normal Chest palpation: Normal - Cardiovascular Rhythm: Regular Heart sounds: Normal auscultation Murmur: No - Abdominal Inspection: Normal Distension: No distension Bowel sounds: Normal Tenderness: Nontender Organomegaly: No organomegaly - Back Back: Normal, Nontender - Extremities General upper extremity: Normal inspection, Nontender, Normal color, Normal ROM , Normal temperature General lower extremity: Normal inspection, Nontender, Normal color, Normal ROM , Normal temperature, Normal weight bearing. No: Dell's sign - Neurological Neuro grossly intact: Yes Cognition: Normal Orientation: AAOx4 [place] Coma Scale Eye Opening: Spontaneous [place] Coma Scale Verbal: Oriented [place] Coma Scale Motor: Obeys Commands Tiny Coma Scale Total: 15 Speech: Normal Motor strength normal: LUE, RUE, LLE, RLE Sensory: Normal - Psychological Associated symptoms: Normal affect, Normal mood - Skin Skin Temperature: Warm Skin Moisture: Dry Skin Color: Normal Course - Re-evaluation Re-evalutation: 04/16/18 22:36 Laboratory 04/16/18 04/16/18 04/16/18 20:10 20:23 20:23 WBC 6.2 RBC 4.08 Hgb 11.5 L Hct 34.6 L MCV 85 MCH 28.2 MCHC 33.2 RDW 15.4 H Plt Count 238 Seg Neutrophils % 64.9 Lymphocytes % 24.6 Monocytes % 6.9 Eosinophils % 2.1 Basophils % 1.5 Absolute Neutrophils 4.0 Absolute Lymphocytes 1.5 Absolute Monocytes 0.4 Absolute Eosinophils 0.1 Absolute Basophils 0.1 VBG pH VBG pCO2 VBG HCO3 VBG Base Excess Sodium 139.0 Potassium 4.9 Chloride 102 Carbon Dioxide 30 Anion Gap 7 BUN 27 H Creatinine 1.06 Est GFR ( Amer) > 60 Est GFR (Non-Af Amer) 50 L Glucose 101 Lactic Acid Calcium 9.5 Total Bilirubin 0.3 Direct Bilirubin 0.3 Neonat Total Bilirubin Not Reportable Neonat Direct Bilirubin Not Reportable Neonat Indirect Bili Not Reportable AST 27 ALT 27 Alkaline Phosphatase 54 Total Protein 6.3 Albumin 3.8 Lipase 153.7 Urine Color YELLOW Urine Appearance SLIGHTLY-CLOUDY Urine pH 5.0 Ur Specific [place] 1.020 Urine Protein 100 H Urine Glucose (UA) NEGATIVE Urine Ketones TRACE H Urine Blood NEGATIVE Urine Nitrite NEGATIVE Urine Bilirubin NEGATIVE Urine Urobilinogen 2.0 H Ur Leukocyte Esterase TRACE H Urine WBC (Auto) 1 Urine RBC (Auto) 1 U Hyaline Cast (Auto) 1 Squamous Epi Cells Auto 1 Urine Mucus (Auto) OCC Urine Ascorbic Acid 40 H 04/16/18 04/16/18 20:23 20:23 WBC RBC Hgb Hct MCV MCH MCHC RDW Plt Count Seg Neutrophils % Lymphocytes % Monocytes % Eosinophils % Basophils % Absolute Neutrophils Absolute Lymphocytes Absolute Monocytes Absolute Eosinophils Absolute Basophils VBG pH 7.36 VBG pCO2 55.0 VBG HCO3 30.4 VBG Base Excess 3.9 Sodium Potassium Chloride Carbon Dioxide Anion Gap BUN Creatinine Est GFR ( Amer) Est GFR (Non-Af Amer) Glucose Lactic Acid 0.8 Calcium Total Bilirubin Direct Bilirubin Neonat Total Bilirubin Neonat Direct Bilirubin Neonat Indirect Bili AST ALT Alkaline Phosphatase Total Protein Albumin Lipase Urine Color Urine Appearance Urine pH Ur Specific [place] Urine Protein Urine Glucose (UA) Urine Ketones Urine Blood Urine Nitrite Urine Bilirubin Urine Urobilinogen Ur Leukocyte Esterase Urine WBC (Auto) Urine RBC (Auto) U Hyaline Cast (Auto) Squamous Epi Cells Auto Urine Mucus (Auto) Urine Ascorbic Acid 04/16/18 22:36 Chest X-Ray 04/16/18 20:00 IMPRESSION: There is no acute pleural-parenchymal process seen in the imaged lung infante. Place of interpretation: Teleradiology. Patient is afebrile. No significant pathology seen. Could definitely have little bit exacerbation of COPD. Also could have sinus infection. At this time will start her on a Z-Brown. Advised that she follow-up with her regular doctor if symptoms get worse or to return to the emergency department. - Vital Signs Vital signs: Temp Pulse Resp BP Pulse Ox 98.4 F 80 15 137/55 H 98 04/16/18 21:27 04/16/18 19:30 04/16/18 22:00 04/16/18 19:30 04/16/18 22:00 - Laboratory Result Diagrams: 04/16/18 20:23 04/16/18 20:23 Laboratory results interpreted by me: 04/16/18 04/16/18 04/16/18 20:10 20:23 20:23 Hgb 11.5 L Hct 34.6 L RDW 15.4 H BUN 27 H Est GFR (Non-Af Amer) 50 L Urine Protein 100 H Urine Ketones TRACE H Urine Urobilinogen 2.0 H Ur Leukocyte Esterase TRACE H Urine Ascorbic Acid 40 H - EKG Interpretation by [place] EKG shows normal: Sinus rhythm, Intervals, QRS Complexes, ST-T Waves Voltage: Consistant with LVH When compared to previous EKG there are: No significant change Discharge - Discharge Clinical Impression: Sinusitis Qualifiers: Sinusitis location: frontal Chronicity: unspecified Qualified Code(s): 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 Begin medication as prescribed. Return for any worsening symptoms or concerns. Prescriptions: Azithromycin 250 mg PO DAILY 6 Days #6 tablet Referrals: NALLELY GLASER MD [ACTIVE STAFF] - Follow up as needed
[2018-04-16] MEDS ORDERED: AZITHROMYCIN 250 MG TABLET PO ONE (21:40)
[2018-04-16 23:31] LABS: A TYPE INFLUENZA AG NEGATIVE (NEGATIVE); B INFLUENZA AG NEGATIVE (NEGATIVE)
[2018-04-16] MEDS ORDERED: ONDANSETRON 4 MG TAB.RAPDIS PO ONE (23:43)
--- NOTE | 2018-04-17 06:48 | EKG REPORT ---
SEVERITY:- ABNORMAL ECG - SINUS RHYTHM LEFT VENTRICULAR HYPERTROPHY : Confirmed by: Cathy Bacon MD 17-Apr-2018 06:47:38
== END 2018-04-16 23:15 | disposition home or self-care (01) ==
LOC: ER 19:17
DX: J32.1 Chronic frontal sinusitis (principal); R07.9 Chest pain, unspecified; F17.210 Nicotine dependence, cigarettes, uncomplicated; I48.91 Unspecified atrial fibrillation; I25.10 Atherosclerotic heart disease of native coronary artery without angina pectoris; E78.00 Pure hypercholesterolemia, unspecified; I10 Essential (primary) hypertension; I25.2 Old myocardial infarction; Z88.0 Allergy status to penicillin; Z88.3 Allergy status to other anti-infective agents
CPT/HCPCS: 93005; 99285; 36415; 87040; 87086; 83690; 85025; 80053; 81001; 84484; 82803; 83605; 87804; 71046; 93010; A9270 ×2; S0119

== ENCOUNTER 2018-05-03 09:32 | Inpatient (IN) | payer OTHER, MEDICARE ==
[2018-05-03] MEDS ORDERED: DILTIAZEM HCL INJ 25 MG/5 ML VIAL IV ONE ×2 (10:07→13:15)
[2018-05-03] MEDS ORDERED: DILTIAZEM HCL/D5W 125 MG/125 ML RTUINJ IV PRN (10:07)
--- NOTE | 2018-05-03 10:08 | ER Document Report ---
ED Cardiac - General Chief Complaint: Palpitations Stated Complaint: CHEST PAIN Time Seen by Provider: 05/03/18 09:43 Notes: 82-year-old female patient emergency department chief complaint of shortness of breath and generally not feeling well. Patient states that she has a history of atrial fibrillation. Has been taking all of her regular medications. Does smoke. Denies any chest pain. States that she feels like she has "the flu". Was seen here recently and diagnosed with sinus infection and was treated with a azithromycin. States that she felt better after that. Over the last couple of days she has been having the symptoms. Denies any significant amount of swelling to the lower extremities. Is currently on Eliquis and states that she takes it every day. TRAVEL OUTSIDE OF THE [place] IN LAST 30 DAYS: No - HPI Patient complains to provider of: Palpitations, Shortness of breath Was the onset of pain: Gradual Severity now: Mild Severity at worst: Mild Pain level currently: 0 - Related Data Allergies/Adverse Reactions: prednisone [Prednisone] Allergy (Unknown, Verified 04/16/18 19:18) cephalexin [Cephalexin] Allergy (Verified 04/16/18 19:18) Cephalosporins Allergy (Verified 04/16/18 19:18) ciprofloxacin [From Cipro] Allergy (Verified 04/16/18 19:18) cortisone [Cortisone] Allergy (Verified 04/16/18 19:18) Penicillins Allergy (Verified 04/16/18 19:18) phenazopyridine [Phenazopyridine] Allergy (Verified 04/16/18 19:18) sulfamethoxazole [From Bactrim] Allergy (Verified 04/16/18 19:18) tramadol HCl [From Ultram] Allergy (Verified 04/16/18 19:18) trimethoprim [From Bactrim] Allergy (Verified 04/16/18 19:18) Past Medical History - General Information source: Patient - Social History Smoking Status: Current Every Day Smoker Cigarette use (# per day): Yes Frequency of alcohol use: None Drug Abuse: None Lives with: Alone Family History: Reviewed & Not Pertinent, DM, Hypertension - Past Medical History Cardiac Medical History: Reports: Hx Atrial Fibrillation, Hx Coronary Artery Disease - Has had a couple of stents placed in her arteries., Hx Heart Attack - 10/2014, Hx Hypercholesterolemia, Hx Hypertension Pulmonary Medical History: Reports: Hx Asthma, Hx COPD, Hx Pneumonia Neurological Medical History: Reports: 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 Denies: Hx Peritoneal Dialysis Malignancy Medical History: Reports: Hx Skin Cancer GI Medical History: Reports: Hx Crohn's Disease, Hx Gastroesophageal Reflux Disease, Hx Hiatal Hernia, Hx Ulcer, Hx Ulcerative Colitis, Hx Colonoscopy Musculoskeletal Medical History: Reports Hx Arthritis Psychiatric Medical History: Reports: Hx Depression Past Surgical History: Reports: Hx Abdominal Surgery - umbilical hernia, Hx Cardiac Catheterization - stent x 2, Hx Cardiac Surgery - Stent, Hx Coronary Stent, Hx Umbilical Hernia, Other - Skin cancer - Immunizations Hx Diphtheria, Pertussis, Tetanus Vaccination: Yes Hx Pneumococcal Vaccination: 07/08/11 Review of Systems - Review of Systems Notes: Constitutional: denies: Chills, Diaphoresis, Fever,. Does complain of malaise and weakness. EENT: denies: Eye discharge, Blurred vision, Tearing, Double vision, Nose congestion, Nose discharge, Throat swelling, Mouth pain Cardiovascular: denies: Does complain of palpitations and tachycardia. No lower extremity edema Respiratory: As a history of COPD. Chronic cough. Chronic shortness of breath. Chronic wheezing. Gastrointestinal: denies: Abdominal pain, Diarrhea, Nausea, Vomiting, Black stools, bright red blood in stool Genitourinary: denies: Burning, Dysuria, Discharge, Frequency, Flank pain, Hematuria Musculoskeletal: denies: Joint pain, Joint swelling, Muscle pain, Muscle stiffness, back pain Hematologic/Lymphatic: denies: Anemia, Easy bleeding, Easy bruising, Blood clots Neurological/Psychological: denies: Confusion, Dementia, Depression, Loss of consciousness Skin: No lesions, no masses, no skin breakdown, no abscesses Physical Exam - Vital signs Vitals: Pulse Ox 100 05/03/18 09:35 Interpretation: Tachycardic - HEENT Head: Normocephalic, Atraumatic Eyes: Normal Pupils: PERRL Sinus: Normal Nasal: Normal Mouth/Lips: Normal Pharynx: Normal Neck: Normal - Respiratory Respiratory status: No respiratory distress Chest status: Nontender Breath sounds: Normal Chest palpation: Normal - Cardiovascular Rhythm: Irregularly irregular, Tachycardia - Abdominal Inspection: Normal Distension: No distension Bowel sounds: Normal Tenderness: Nontender Organomegaly: No organomegaly - Back Back: Normal, Nontender - Extremities General upper extremity: Normal inspection, Nontender, Normal color, Normal ROM , Normal temperature General lower extremity: Normal inspection, Nontender, Normal color, Normal ROM , Normal temperature, Normal weight bearing. No: Dell's sign - Neurological Neuro grossly intact: Yes Cognition: Normal Orientation: AAOx4 [place] Coma Scale Eye Opening: Spontaneous [place] Coma Scale Verbal: Oriented Tiny Coma Scale Motor: Obeys Commands [place] Coma Scale Total: 15 Speech: Normal Motor strength normal: LUE, RUE, LLE, RLE Sensory: Normal - Psychological Associated symptoms: Normal affect, Normal mood - Skin Skin Temperature: Warm Skin Moisture: Dry Skin Color: Normal Course - Re-evaluation Re-evalutation: 05/03/18 11:45 Patient with fairly unremarkable labs. Heart rate still quite elevated. Blood pressure was dropping. Small fluid bolus ordered. On diltiazem drip. Uncomfortable discharging. Will consult hospitalist for admission at this time. 05/03/18 11:54 Laboratory 05/03/18 05/03/18 05/03/18 09:49 09:49 09:49 WBC 5.4 RBC 4.35 Hgb 12.2 Hct 37.1 MCV 85 MCH 28.1 MCHC 32.9 RDW 16.0 H Plt Count 212 Seg Neutrophils % 75.1 Lymphocytes % 15.8 Monocytes % 7.4 Eosinophils % 0.8 Basophils % 0.9 Absolute Neutrophils 4.1 Absolute Lymphocytes 0.9 Absolute Monocytes 0.4 Absolute Eosinophils 0.0 Absolute Basophils 0.0 Sodium 143.5 Potassium 4.3 Chloride 102 Carbon Dioxide 32 H Anion Gap 10 BUN 26 H Creatinine 0.99 Est GFR ( Amer) > 60 Est GFR (Non-Af Amer) 54 L Glucose 101 Calcium 9.7 Total Bilirubin 0.4 Direct Bilirubin 0.2 Neonat Total Bilirubin Not Reportable Neonat Direct Bilirubin Not Reportable Neonat Indirect Bili Not Reportable AST 20 ALT 18 Alkaline Phosphatase 55 Creatine Kinase 38 CK-MB (CK-2) 1.51 Troponin I 0.026 Total Protein 6.2 L Albumin 3.8 Chest X-Ray 05/03/18 09:35 IMPRESSION: 1. No acute cardiopulmonary process. 2. Sequela of COPD. - Vital Signs Vital signs: Temp Pulse Resp BP Pulse Ox 97.4 F 21 H 118/69 100 10/27/18 09:42 05/03/18 10:01 05/03/18 10:01 05/03/18 09:35 - Laboratory Result Diagrams: 05/03/18 09:49 05/03/18 09:49 Laboratory results interpreted by me: 05/03/18 05/03/18 09:49 09:49 RDW 16.0 H Carbon Dioxide 32 H BUN 26 H Est GFR (Non-Af Amer) 54 L Total Protein 6.2 L - EKG Interpretation by Me EKG shows normal: [place], Intervals, QRS Complexes, ST-T Waves Rhythm: A.Fib, Other - RVR Critical Care Note - Critical Care Note Total time excluding time spent on procedures (mins): 35 Comments: With A. fib with RVR, hypotensive, intravenous management of abnormal rhythm. Discharge - Discharge Clinical Impression: Atrial fibrillation with rapid ventricular response Condition: Good Disposition: ADMITTED INPATIENT Admitting Provider: Hospitalist - Dr. Escobedo Unit Admitted: IMCU Referrals: RACHEL MEDRANO FNP [Primary Care Provider] - Follow up as needed
[2018-05-03 10:15] LABS: ABSOLUTE LYMPHOCYTES (AUTO) 0.9 10^3/uL (0.5-4.7); ABSOLUTE MONOCYTES (AUTO) 0.4 10^3/uL (0.1-1.4); ABSOLUTE NEUT (AUTO) 4.1 10^3/uL (1.7-8.2); BASOPHILS % (AUTO) 0.9 % (0-2); EOSINOPHILS % (AUTO) 0.8 % (0-6); HEMATOCRIT 37.1 % (36.0-47.0); HEMOGLOBIN 12.2 g/dL (12.0-15.5); LYMPHOCYTES % (AUTO) 15.8 % (13-45); MEAN CORPUSCULAR HEMOGLOBIN 28.1 pg (27.0-33.4); MEAN CORPUSCULAR HGB CONC 32.9 g/dL (32.0-36.0); MEAN CORPUSCULAR VOLUME 85 fl (80-97); MONOCYTES % (AUTO) 7.4 % (3-13); PLATELET COUNT 212 10^3/uL (150-450); RED BLOOD COUNT 4.35 10^6/uL (3.72-5.28); SEGMENTED NEUTROPHILS % (AUTO) 75.1 % (42-78); TOTAL CELLS COUNTED % (AUTO) 100 %; WHITE BLOOD COUNT 5.4 10^3/uL (4.0-10.5)
--- NOTE | 2018-05-03 10:24 | RADIOLOGY REPORT (SQ) ---
EXAM DESCRIPTION: CHEST SINGLE VIEW COMPLETED DATE/TIME: 05/03/2018 10:02 am REASON FOR STUDY: cough COMPARISON: 04/16/2018 and earlier EXAM PARAMETERS: NUMBER OF VIEWS: One view. TECHNIQUE: Single frontal radiographic view of the chest acquired. RADIATION DOSE: NA LIMITATIONS: None. FINDINGS: LUNGS AND PLEURA: No opacities, masses or pneumothorax. No pleural effusion. Lungs are hy perlucent and hyperaerated. MEDIASTINUM AND HILAR STRUCTURES: No masses. Contour normal. HEART AND VASCULAR STRUCTURES: Heart normal in size. Normal vasculature. Calcifications of the aort ic knob. BONES: No acute findings. HARDWARE: None in the chest. OTHER: No other significant finding. IMPRESSION: 1. No acute cardiopulmonary process. 2. Sequela of COPD. TECHNICAL DOCUMENTATION: JOB ID: [id number] [employer]- All Rights Reserved Reading location - IP/workstation name: [email or web address]
[2018-05-03 10:35] LABS: ALANINE AMINOTRANSFERASE 18 U/L (9-52); ALBUMIN 3.8 g/dL (3.5-5.0); ALKALINE PHOSPHATASE 55 U/L (38-126); ANION GAP 10 (5-19); ASPARTATE AMINO TRANSFERASE 20 U/L (14-36); BILIRUBIN,DIRECT 0.2 mg/dL (0.0-0.4); BILIRUBIN,TOTAL 0.4 mg/dL (0.2-1.3); BLOOD UREA NITROGEN 26 mg/dL (7-20); CALCIUM 9.7 mg/dL (8.4-10.2); CARBON DIOXIDE 32 mmol/L (22-30); CHLORIDE 102 mmol/L (98-107); CREATINE KINASE 38 U/L (30-135); GLUCOSE 101 mg/dL (75-110); POTASSIUM 4.3 mmol/L (3.6-5.0); SODIUM 143.5 mmol/L (137-145); TOTAL PROTEIN 6.2 g/dL (6.3-8.2)
[2018-05-03 10:47] LABS: CREATINE KINASE MB 1.51 ng/mL (<4.55); TROPONIN I 0.026 ng/mL
[2018-05-03] MEDS ORDERED: NORMAL SALINE 500 ML IV ONE (11:58)
[2018-05-03] MEDS ORDERED: DILTIAZEM HCL INJ 25 MG/5 ML VIAL ONE (12:29)
[2018-05-03] MEDS ORDERED: LEVALBUTEROL HCL NEB 1.25 MG/3 ML AMPUL NEB PRN (12:51)
[2018-05-03] MEDS ORDERED: NORMAL SALINE 1000 ML 1,000 ML IV PRN (12:51)
[2018-05-03] MEDS ORDERED: ACETAMINOPHEN 325 MG TABLET PO PRN (12:51)
--- NOTE | 2018-05-03 13:19 | PDOC H&P ---
History of Present Illness Admission Date/PCP: 05/03/18 12:02 CARMELA RESENDIZ Patient complains of: Rapid heart rate History of Present Illness: CINTHYA DANIELLE is a 82 year old female with known history of atrial fibrillation. Patient was diagnosed in October of this year. She is followed by a manager change Dr. Ruelas in [place]. She currently is on metoprolol she states that this morning she felt extremely lethargic and felt her heart racing she activated EMS and was brought to the emergency room. On arrival in the emergency room patient was noted to have a heart rate of 150 she was given a bolus of Cardizem and started on a drip. Her blood pressure was low normal and dipped into the systolics of 90. She was given a 500 mL bolus. Her heart rate decreased into the 110s but then increased once again to the 130s. Patient has known coronary artery disease having had stents placed in the past. She also has chronic hypoxemic respiratory failure on 2 L of oxygen primarily when sleeping her COPD is reasonably controlled. She does follow with a kitchen assistant for Crohn's disease which is currently in remission. She denies any recent episodes of chest pain or pressure. Her troponin was negative on arrival. Request for admission for the atrial fibrillation was made Past Medical History Cardiac Medical History: Reports: Atrial Fibrillation, Coronary Artery Disease - Has had a couple of stents placed in her arteries., Myocardial Infarction - 2014, Hyperlipidema, Hypertension Pulmonary Medical History: Reports: Asthma, Chronic Obstructive Pulmonary Disease (COPD), Pneumonia Malignancy Medical History: Reports: Skin Cancer GI Medical History: Reports: Crohn's Disease, Gastroesophageal Reflux Disease, Hiatal Hernia Musculoskeltal Medical History: Reports: Arthritis Psychiatric Medical History: Reports: Depression Past Surgical History Past Surgical History: Reports: Cardiac Catheterization - stent x 2, Coronary Stent, Other - Skin cancer, umbilical herniorrhaphy Social History Lives with: Alone Smoking Status: Current Every Day Smoker Frequency of Alcohol Use: None Hx Recreational Drug Use: No Drugs: None Hx Prescription Drug Abuse: No - Advance Directive Resuscitation Status: Full Code Family History Family History: CAD - Father, COPD - Brother, CVA - Mother, DM, Hypertension, Malignancy - 1 sister colon cancer and another sister lung cancer Parental Family History Reviewed: Yes Children Family History Reviewed: Yes Sibling(s) Family History Reviewed.: Yes Medication/Allergy Home Medications: Albuterol Sulfate [Ventolin Hfa] 2 puff IH Q4HP PRN 10/05/17 Calcitriol [Rocaltrol 0.25 mcg Capsule] 0.25 mcg PO MOWEFR@1000 10/05/17 Clopidogrel Bisulfate [Plavix 75 mg Tablet] 75 mg PO DAILY 10/05/17 Doxycycline Hyclate [Vibramycin 100 mg Tablet] 100 mg PO BID 10/05/17 Duloxetine HCl [Cymbalta] 30 mg PO DAILY 10/05/17 Rosuvastatin Calcium [Crestor 10 mg Tablet] 10 mg PO QHS 10/05/17 Valsartan [Diovan 160 mg Tablet] 160 mg PO Q12 10/05/17 Citalopram Hydrobromide [Celexa 20 mg Tablet] 10 mg PO DAILY tablet 10/06/17 Dexlansoprazole [Dexilant] 60 mg PO DAILY #30 froy.bp 10/06/17 Docusate Sodium [Colace 100 mg Capsule] 100 mg PO BID capsule 10/06/17 Fluticasone Propionate [Flonase Nasal Nisula 50 Mcg/Nisula 16 gm] 2 spray NASL DAILYP PRN spray.pump 10/06/17 Metoprolol Tartrate [Lopressor 50 mg Tablet] 50 mg PO Q12 tablet 10/06/17 Doxycycline Hyclate 100 mg PO BID #14 capsule 12/29/17 Azithromycin 250 mg PO DAILY 6 Days #6 tablet 04/16/18 Allergies/Adverse Reactions: prednisone [Prednisone] Allergy (Unknown, Verified 04/16/18 19:18) cephalexin [Cephalexin] Allergy (Verified 04/16/18 19:18) Cephalosporins Allergy (Verified 04/16/18 19:18) ciprofloxacin [From Cipro] Allergy (Verified 04/16/18 19:18) cortisone [Cortisone] Allergy (Verified 04/16/18 19:18) Penicillins Allergy (Verified 04/16/18 19:18) phenazopyridine [Phenazopyridine] Allergy (Verified 04/16/18 19:18) sulfamethoxazole [From Bactrim] Allergy (Verified 04/16/18 19:18) tramadol HCl [From Ultram] Allergy (Verified 04/16/18 19:18) trimethoprim [From Bactrim] Allergy (Verified 04/16/18 19:18) Review of Systems All systems: reviewed and no additional remarkable complaints except as stated - Complete review of systems negative except for the palpitations and generic weakness denies chest pain pressure denies fever chills denies acute changes in her pulmonary status. Has had periods of palpitations lasting up to an hour prior to admission Physical Exam Vital Signs: Temp Pulse Resp BP Pulse Ox 97.4 F 21 H 118/69 100 05/03/18 09:42 05/03/18 10:01 05/03/18 10:01 05/03/18 09:35 General appearance: PRESENT: no acute distress, well-developed, well-nourished Eye exam: PRESENT: conjunctiva pink, EOMI, PERRLA. ABSENT: scleral icterus Mouth exam: PRESENT: moist, tongue midline Neck exam: PRESENT: carotid bruit. ABSENT: JVD, lymphadenopathy, thyromegaly Respiratory exam: PRESENT: accessory muscle use, decreased breath sounds Cardiovascular exam: PRESENT: irregular rhythm, systolic murmur - Over 6. ABSENT: diastolic murmur, rubs Pulses: PRESENT: normal dorsalis pedis pul GI/Abdominal exam: PRESENT: normal bowel sounds, soft. ABSENT: distended, guarding, mass, organolmegaly, rebound, tenderness Extremities exam: PRESENT: full ROM. ABSENT: calf tenderness, clubbing, pedal edema Neurological exam: PRESENT: alert, awake, oriented to person, oriented to place , oriented to time, oriented to situation, CN II-XII grossly intact. ABSENT: motor sensory deficit Psychiatric exam: PRESENT: appropriate affect, normal mood. ABSENT: homicidal ideation, suicidal ideation Skin exam: PRESENT: intact, other - Juan complexion. ABSENT: abrasion Results Impressions: Chest X-Ray 05/03/18 09:35 IMPRESSION: 1. No acute cardiopulmonary process. 2. Sequela of COPD. Assessment & Plan - Diagnosis (1) Atrial fibrillation with rapid ventricular response Plan: Mid patient to telemetry bed Cardizem has been re-bolused increased to 15. Patient is on Eliquis will continue anticoagulation. Patient is on metoprolol continue unchanged but may need an antiarrhythmic as she has had breakthroughs and reports periods of palpitations on and off. Consultation with Dr. Servin. Echocardiogram done in October will not repeat at this time (2) Hypertension Plan: Patient clinically dry on exam was given 500 mL bolus with a good blood pressure response will continue at 100 mL's an hour for the present. (3) COPD (chronic obstructive pulmonary disease) Qualifiers: Emphysema type: unspecified Is this a current diagnosis for this admission?: Yes Plan: Currently no active exacerbation. Patient is on chronic oxygen when sleeping continue nebulizers as needed (4) CAD (coronary artery disease) Qualifiers: Coronary Disease-Associated Artery/Lesion type: unspecified vessel or lesion type [place] vs. transplanted heart: [place] heart Associated angina: angina presence unspecified Qualified Code(s): I25.10 - Atherosclerotic heart disease of [place] coronary artery without angina pectoris Plan: EKG shows LVH with repolarization abnormality at baseline and slightly accentuated but unchanged with the atrial fibrillation with rapid ventricular response. Will trend troponins. Patient is on aspirin therapy with her Eliquis (5) Hyperlipidemia Qualifiers: Hyperlipidemia type: unspecified Qualified Code(s): E78.5 - Hyperlipidemia , unspecified Plan: Continue Crestor 10 mg daily check lipid panel (6) Chronic hypoxemic respiratory failure Plan: On 2 L when sleeping patient does not use oxygen during the day (7) Crohns disease Plan: Patient is not anemic there is been no active disease currently no workup planned. - Time Time Spent: 50 to 70 Minutes Anticipated discharge: Home - Inpatient Certification Based on my medical assessment, after consideration of the patient's comorbidities, presenting symptoms, or acuity I expect that the services needed warrant INPATIENT care.: Yes I certify that my determination is in accordance with my understanding of Medicare's requirements for reasonable and necessary INPATIENT services [42 CFR 412.3e].: Yes Medical Necessity: Significant Comorbidiites Make Outpatient Treatment Too Risky , Need Close Monitoring Due to Risk of Patient Decompensation, Need For Continuous Telemetry Monitoring
--- NOTE | 2018-05-03 14:30 | EKG REPORT ---
SEVERITY:- ABNORMAL ECG - ATRIAL FIBRILLATION REPOLARIZATION ABNORMALITY, PROB RATE RELATED : Confirmed by: Eunice Servin 03-May-2018 14:29:48
[2018-05-03] MEDS: APIXABAN 5 MG TABLET PO SCH (17:11)
[2018-05-03] MEDS: DILTIAZEM HCL/D5W 125 MG/125 ML RTUINJ IV PRN (17:12)
--- NOTE | 2018-05-03 19:40 | PDOC CONSULTATION ---
Consultation Consult Date: 05/03/18 Attending physician:: JACOBO APARICIO Consult reason:: Atrial fibrillation History of Present Illness Admission Date/PCP: 05/03/18 12:02 CARMELA RESENDIZ Patient complains of: Shortness of breath and palpitations History of Present Illness: CINTHYA DANIELLE is a 82 year old female with known history of atrial fibrillation. Patient was diagnosed in October of this year. She is followed by a shirring machine operator Dr. Ruelas in [place]. She currently is on metoprolol she states that this morning she felt extremely lethargic and felt her heart racing she activated EMS and was brought to the emergency room. On arrival in the emergency room patient was noted to have a heart rate of 150 she was given a bolus of Cardizem and started on a drip. Her blood pressure was low normal and dipped into the systolics of 90. She was given a 500 mL bolus. Her heart rate decreased into the 110s but then increased once again to the 130s. Patient has known coronary artery disease having had stents placed in the past. She also has chronic hypoxemic respiratory failure on 2 L of oxygen primarily when sleeping her COPD is reasonably controlled. She does follow with a body and frame technician for Crohn's disease which is currently in remission. She denies any recent episodes of chest pain or pressure. Her troponin was negative on arrival. Request for admission for the atrial fibrillation was made. This history obtained by the hospitalist was reviewed and confirmed with the patient. Currently patient denying any symptoms and is resting comfortably. Past Medical History Cardiac Medical History: Reports: Atrial Fibrillation, Coronary Artery Disease - Has had a couple of stents placed in her arteries., Myocardial Infarction - 2014, Hyperlipidema, Hypertension Pulmonary Medical History: Reports: Asthma, Chronic Obstructive Pulmonary Disease (COPD), Pneumonia Malignancy Medical History: Reports: Skin Cancer GI Medical History: Reports: Crohn's Disease, Gastroesophageal Reflux Disease, Hiatal Hernia, Ulcerative Colitis Musculoskeltal Medical History: Reports: Arthritis Psychiatric Medical History: Reports: Depression Past Surgical History Past Surgical History: Reports: Cardiac Catheterization - stent x 2, Coronary Stent, Other - Skin cancer, umbilical herniorrhaphy Social History Lives with: Alone Smoking Status: Current Every Day Smoker Cigarettes Packs Per Day: 1 Frequency of Alcohol Use: None Hx Recreational Drug Use: No Drugs: None Hx Prescription Drug Abuse: No - Advance Directive Resuscitation Status: Full Code Surrogate healthcare decision maker:: Patient son Jacobo Coy. Family History Family History: CAD - Father, COPD - Brother, CVA - Mother, DM, Hypertension, Malignancy - 1 sister colon cancer and another sister lung cancer Parental Family History Reviewed: Yes Children Family History Reviewed: Yes Sibling(s) Family History Reviewed.: Yes Medication/Allergy Home Medications: Calcitriol [Rocaltrol 0.25 mcg Capsule] 0.25 mcg PO MOWEFR@1000 10/05/17 Rosuvastatin Calcium [Crestor 10 mg Tablet] 10 mg PO QHS 10/05/17 Dexlansoprazole [Dexilant 60 mg Capsule] 60 mg PO DAILY #30 cap.dr.bp 10/06/17 Fluticasone Propionate [Flonase Nasal [place] 50 Mcg/[place] 16 gm] 2 spray NASL DAILYP PRN spray.pump 10/06/17 Metoprolol Tartrate [Lopressor 50 mg Tablet] 50 mg PO Q12 tablet 10/06/17 Apixaban [Eliquis 5 mg Tablet] 5 mg PO BID 05/03/18 Hydralazine HCl [Apresoline 50 mg Tablet] 50 mg PO TID 05/03/18 Losartan Potassium [Cozaar 100 mg Tablet] 100 mg PO DAILY 05/03/18 Mesalamine [Lialda] 2.4 gm PO QHS 05/03/18 Diltiazem HCl [Cardizem Cd 120 mg Capsule] 120 mg PO DAILY #30 cap.sr.24h Allergies/Adverse Reactions: prednisone [Prednisone] Allergy (Unknown, Verified 04/16/18 19:18) cephalexin [Cephalexin] Allergy (Verified 04/16/18 19:18) Cephalosporins Allergy (Verified 04/16/18 19:18) ciprofloxacin [From Cipro] Allergy (Verified 04/16/18 19:18) cortisone [Cortisone] Allergy (Verified 04/16/18 19:18) Penicillins Allergy (Verified 04/16/18 19:18) phenazopyridine [Phenazopyridine] Allergy (Verified 04/16/18 19:18) sulfamethoxazole [From Bactrim] Allergy (Verified 04/16/18 19:18) tramadol HCl [From Ultram] Allergy (Verified 04/16/18 19:18) trimethoprim [From Bactrim] Allergy (Verified 04/16/18 19:18) Review of Systems Review of Systems: Please see history of present illness and past medical history as wall. Constitutional: No fever or chills reported. Head : No recent chronic headaches, recent head injury. Eyes: No recent eye pain, diplopia, redness, discharge, acute visual changes. Ears: No recent chronic ear pain, acute hearing loss, ear discharge. Oral cavity: No recent ulcerations, bleeding, oral cavity discomfort. Neck: No recent acute neck pain reported. Hematologic: No recent easy bruising or bleeding. Lymphatic: No recent lymph node enlargement reported. Cardiovascular system review: See history of present illness. Complains of intermittent palpitations. Respiratory system review: No hemoptysis or blood clots in the lungs reported. Shortness of breath on exertion Gastrointestinal system review: Negative for any recent acute hematemesis, melena. Genitourinary system review: No recent acute or chronic hematuria, flank pain, UTI etc. reported. Skin system review: Negative for any recent abnormal bruising, no rash, no pruritus reported. Neurologic: No prior history of strokes, mini strokes, seizure disorder. Psychologic: No history of major psychosis or major depression reported. Musculoskeletal: Minor aches and pains reported. No acute joint swelling reported. Endocrine: No recent polyuria, polydipsia, recent heat or cold intolerance. Physical Exam Vital Signs: Temp Pulse Resp BP Pulse Ox 97.7 F 90 18 109/65 91 L 05/03/18 14:35 05/03/18 19:00 05/03/18 14:35 05/03/18 19:00 05/03/18 14:35 Intake & Output 05/02/18 05/03/18 05/04/18 06:59 06:59 06:59 Intake Total 778 Balance 778 Weight 60.1 kg Exam: GENERAL: well-nourished and in no acute distress. Alert and oriented x3 HEAD: Atraumatic, normocephalic. EYES: HARI, sclera anicteric, conjunctiva are normal. ENT: Moist mucous membranes. No oral ulcerations or bleeding gums noted. No obvious ear, nose or throat abnormalities noted. NECK: supple without lymphadenopathy. Trachea is central. No cervical or axillary lymphadenopathy noted. Carotids are 2+, JVD WNL LUNGS: Breath sounds clear bilaterally. No wheezes rales or rhonchi noted. No significant dullness noted on percussion. CHEST: Palpation of the chest wall shows no significant chest wall tenderness. 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 ABDOMEN: Soft, no significant tenderness appreciated, normoactive bowel sounds. No guarding, no rebound. No rigidity noted . No masses appreciated. EXTREMITIES: Pedal pulses are 1-2+, no calf tenderness noted. No clubbing or cyanosis. negative pedal edema noted NEUROLOGICAL: Focused neurological exam showed no significant neurologic deficit. Normal speech, no focal weakness appreciated. PSYCH: Normal mood, normal affect. Judgment and insight within normal limits. SKIN: No significant ecchymosis, skin is noted to be warm. MUSCULOSKELETAL EXAM: No significant acute joint swelling noted. Results Laboratory Results: 05/03/18 16:40 Troponin I 0.057 EKG Comments: Current EKG shows A. fib with controlled ventricular response. Minor nonspecific T wave changes are noted. Impressions: Chest X-Ray 05/03/18 09:35 IMPRESSION: 1. No acute cardiopulmonary process. 2. Sequela of COPD. Assessment & Plan - Diagnosis (1) Atrial fibrillation with rapid ventricular response Is this a current diagnosis for this admission?: Yes (2) Chronic hypoxemic respiratory failure Is this a current diagnosis for this admission?: Yes (3) Crohns disease Qualifiers: Gastrointestinal tract location: unspecified location Digestive disease complication type: unspecified complication Qualified Code(s): K50.919 - Crohn 's disease, unspecified, with unspecified complications Is this a current diagnosis for this admission?: Yes (4) Hypertension Qualifiers: Hypertension type: essential hypertension Qualified Code(s): I10 - Essential (primary) hypertension Is this a current diagnosis for this admission?: Yes (5) CAD (coronary artery disease) Qualifiers: Coronary Disease-Associated Artery/Lesion type: [place] artery [place] vs. transplanted heart: [place] heart Associated angina: angina presence unspecified Qualified Code(s): I25.10 - Atherosclerotic heart disease of [place] coronary artery without angina pectoris Is this a current diagnosis for this admission?: Yes (6) Hyperlipidemia Qualifiers: Hyperlipidemia type: unspecified Qualified Code(s): E78.5 - Hyperlipidemia , unspecified Is this a current diagnosis for this admission?: Yes (7) Stented coronary artery Is this a current diagnosis for this admission?: Yes (8) Troponin level elevated Is this a current diagnosis for this admission?: Yes - Notes Notes: Atrial fibrillation with rapid ventricular response: Will treat with rate control and chronic anticoagulation. Troponin I elevation: Most likely related to supply demand mismatch from A. fib with rapid ventricular response. Patient not having any chest pain. Patient not diabetic. An ischemia workup therefore is not being planned as patient is not having any chest pain. Chronic respiratory failure: Continue oxygen supplementation. Crohn's disease: Continue current therapeutic regimen. Hypertension: Currently under reasonable control. Continue home antihypertensive therapy. Coronary artery disease: Patient status post stent placement x2 and 2 prior myocardial infarction. Currently stable without any angina symptoms. Continue with medical management. Hyperlipidemia: Continue with statin therapy. LDL goal should be less than 70. - Time Time Spent: 30 to 50 Minutes - CODE STATUS was discussed, patient remains full code. Surrogate decision-maker unchanged. Multiple medical problems were addressed. More than 50% of the time spent coordinating care, discussing management plans with involved caregivers. Management plans discussed with involved personnels. Medical decision making was of moderate to high complexity , patient's has multiple comorbidities. Medications reviewed and adjusted accordingly: Yes
[2018-05-03] MEDS ORDERED: ATORVASTATIN CALCIUM 20 MG TABLET PO SCH (22:00)
--- NOTE | 2018-05-03 22:03 | EKG REPORT ---
SEVERITY:- ABNORMAL ECG - ATRIAL FIBRILLATION, V-RATE 53-65 BORDERLINE RIGHT AXIS DEVIATION : Confirmed by: Eunice Servin 03-May-2018 22:01:38
[2018-05-04] MEDS: METOPROLOL TARTRATE 50 MG TABLET PO SCH ×2 (00:36→09:17)
[2018-05-04 03:52] LABS: ABSOLUTE BASOPHILS # (AUTO) 0.1 10^3/uL (0.0-0.2); ABSOLUTE EOSINOPHILS # (AUTO) 0.2 10^3/uL (0.0-0.6); ABSOLUTE LYMPHOCYTES (AUTO) 1.9 10^3/uL (0.5-4.7); ABSOLUTE MONOCYTES (AUTO) 0.4 10^3/uL (0.1-1.4); BASOPHILS % (AUTO) 1.1 % (0-2); HEMATOCRIT 32.8 % (36.0-47.0); HEMOGLOBIN 10.9 g/dL (12.0-15.5); LYMPHOCYTES % (AUTO) 28.7 % (13-45); MEAN CORPUSCULAR HEMOGLOBIN 28.3 pg (27.0-33.4); MEAN CORPUSCULAR HGB CONC 33.2 g/dL (32.0-36.0); MEAN CORPUSCULAR VOLUME 85 fl (80-97); MONOCYTES % (AUTO) 6.4 % (3-13); PLATELET COUNT 211 10^3/uL (150-450); RED BLOOD COUNT 3.85 10^6/uL (3.72-5.28); RED CELL DISTRIBUTION WIDTH 15.6 % (11.5-14.0); SEGMENTED NEUTROPHILS % (AUTO) 60.8 % (42-78); TOTAL CELLS COUNTED % (AUTO) 100 %; WHITE BLOOD COUNT 6.6 10^3/uL (4.0-10.5)
[2018-05-04 04:08] LABS: BLOOD UREA NITROGEN 21 mg/dL (7-20); CALCIUM 9.4 mg/dL (8.4-10.2); CHOLESTEROL 121.25 mg/dL (0-200); GLUCOSE 103 mg/dL (75-110); PHOSPHORUS 3.5 mg/dL (2.5-4.5); POTASSIUM 4.6 mmol/L (3.6-5.0); TRIGLYCERIDES 40 mg/dL (<150)
[2018-05-04 04:18] LABS: DIRECT LDL 42 mg/dL (<100)
[2018-05-04 04:37] LABS: ANION GAP 7 (5-19); CARBON DIOXIDE 31 mmol/L (22-30); CHLORIDE 105 mmol/L (98-107); SODIUM 143.4 mmol/L (137-145)
[2018-05-04] MEDS: DILTIAZEM HCL/D5W 125 MG/125 ML RTUINJ IV PRN (05:05)
[2018-05-04] MEDS ORDERED: LANSOPRAZOLE 30 MG TAB.RAP.DR PO SCH (06:00)
[2018-05-04] MEDS ORDERED: DILTIAZEM HCL 30 MG TABLET PO ONE (08:15)
[2018-05-04] MEDS: APIXABAN 5 MG TABLET PO SCH (09:17)
[2018-05-04] MEDS ORDERED: ASPIRIN 81 MG TABLET, CHEWABLE PO SCH (10:00)
[2018-05-04] MEDS ORDERED: DILTIAZEM HCL 120 MG CAP.SR.24H PO SCH (10:00)
--- NOTE | 2018-05-04 10:03 | EKG REPORT ---
SEVERITY:- ABNORMAL ECG - ECTOPIC ATRIAL RHYTHM NONSPECIFIC T ABNORMALITIES, LATERAL LEADS : Confirmed by: Eunice Servin 04-May-2018 10:02:49
--- NOTE | 2018-05-04 10:04 | PDOC DISCHARGE SUMMARY ---
General - Admit/Disc Date/PCP Admission Date/Primary Care Provider: 05/03/18 12:02 CARMELA RESENDIZ Discharge Date: 05/04/18 - Discharge Diagnosis (1) Atrial fibrillation with rapid ventricular response Is this a current diagnosis for this admission?: Yes Summary: Continue metoprolol 50 mg addition of Cardizem CD 120 patient is on Eliquis for anticoagulation (2) Hypertension Is this a current diagnosis for this admission?: Yes (3) COPD (chronic obstructive pulmonary disease) Is this a current diagnosis for this admission?: Yes (4) CAD (coronary artery disease) Is this a current diagnosis for this admission?: Yes (5) Hyperlipidemia Is this a current diagnosis for this admission?: Yes (6) Chronic hypoxemic respiratory failure Is this a current diagnosis for this admission?: Yes (7) Crohns disease Is this a current diagnosis for this admission?: Yes (8) Elevated troponin Is this a current diagnosis for this admission?: Yes Summary: Mild increase to 0.05. No chest pain or anginal complaints - Additional Information Resuscitation Status: Full Code Discharge Activity: Activity As Tolerated Prescriptions: Diltiazem HCl [Cardizem Cd 120 mg Capsule] 120 mg PO DAILY #30 cap.sr.24h Home Medications: Calcitriol [Rocaltrol 0.25 mcg Capsule] 0.25 mcg PO MOWEFR@1000 10/05/17 Rosuvastatin Calcium [Crestor 10 mg Tablet] 10 mg PO QHS 10/05/17 Dexlansoprazole [Dexilant 60 mg Capsule] 60 mg PO DAILY #30 cap.dr.bp 10/06/17 Fluticasone Propionate [Flonase Nasal [place] 50 Mcg/[place] 16 gm] 2 spray NASL DAILYP PRN spray.pump 10/06/17 Metoprolol Tartrate [Lopressor 50 mg Tablet] 50 mg PO Q12 tablet 10/06/17 Apixaban [Eliquis 5 mg Tablet] 5 mg PO BID 05/03/18 Hydralazine HCl [Apresoline 50 mg Tablet] 50 mg PO TID 05/03/18 Losartan Potassium [Cozaar 100 mg Tablet] 100 mg PO DAILY 05/03/18 Mesalamine [Lialda] 2.4 gm PO QHS 05/03/18 Diltiazem HCl [Cardizem Cd 120 mg Capsule] 120 mg PO DAILY #30 cap.sr.24h History of Present Illness Patient complains of: Rapid heart rate History of Present Illness: CINTHYA DANIELLE is a 82 year old female with known history of atrial fibrillation. Patient was diagnosed in October of this year. She is followed by a electrophonic engineer Dr. Ruelas in [place]. She currently is on metoprolol she states that this morning she felt extremely lethargic and felt her heart racing she activated EMS and was brought to the emergency room. On arrival in the emergency room patient was noted to have a heart rate of 150 she was given a bolus of Cardizem and started on a drip. Her blood pressure was low normal and dipped into the systolics of 90. She was given a 500 mL bolus. Her heart rate decreased into the 110s but then increased once again to the 130s. Patient has known coronary artery disease having had stents placed in the past. She also has chronic hypoxemic respiratory failure on 2 L of oxygen primarily when sleeping her COPD is reasonably controlled. 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 She denies any recent episodes of chest pain or pressure. Her troponin was negative on arrival. Hospital Course Hospital Course: Patient was admitted to telemetry bed on a Cardizem drip. Consultation with cardiology was obtained. Patient serial troponins showed a small increased to 0.05 consistent with demand ischemia. Patient had no chest pain during the course of the hospital stay. She spontaneously converted to a normal sinus rhythm she was transitioned to Cardizem CD 120 and continued on her metoprolol 50 for rate control. She maintained her rhythm in sinus throughout the evening and requested to be discharged the following morning. Cardiology plan no ischemic workup patient is recommended follow-up with her electrophonic engineer in [place] in 1-2 weeks. Physical Exam Vital Signs: Temp Pulse Resp BP Pulse Ox 97.9 F 89 16 151/57 H 89 L 05/04/18 08:04 05/04/18 08:04 05/04/18 08:04 05/04/18 08:04 05/04/18 08:04 Intake & Output 05/03/18 05/04/18 05/05/18 06:59 06:59 06:59 Intake Total 880 Balance 880 Weight 60.1 kg General appearance: PRESENT: no acute distress, well-developed, well-nourished Neck exam: ABSENT: carotid bruit, JVD, lymphadenopathy, thyromegaly Respiratory exam: PRESENT: accessory muscle use, decreased breath sounds Cardiovascular exam: PRESENT: RRR, systolic murmur - 1/6. ABSENT: diastolic murmur, rubs GI/Abdominal exam: PRESENT: normal bowel sounds, soft. ABSENT: distended, guarding, mass, organolmegaly, rebound, tenderness Extremities exam: PRESENT: full ROM. ABSENT: calf tenderness, clubbing, pedal edema Results Laboratory Results: 05/04/18 03:43 05/04/18 03:43 05/04/18 05/04/18 03:43 03:43 WBC 6.6 RBC 3.85 Hgb 10.9 L Hct 32.8 L MCV 85 MCH 28.3 MCHC 33.2 RDW 15.6 H Plt Count 211 Seg Neutrophils % 60.8 Lymphocytes % 28.7 Monocytes % 6.4 Eosinophils % 3.0 Basophils % 1.1 Absolute Neutrophils 4.0 Absolute Lymphocytes 1.9 Absolute Monocytes 0.4 Absolute Eosinophils 0.2 Absolute Basophils 0.1 Sodium 143.4 Potassium 4.6 Chloride 105 Carbon Dioxide 31 H Anion Gap 7 BUN 21 H Creatinine 0.85 Est GFR ( Amer) > 60 Est GFR (Non-Af Amer) > 60 Glucose 103 Calcium 9.4 Phosphorus 3.5 Magnesium 2.0 Triglycerides 40 Cholesterol 121.25 LDL Cholesterol Direct 42 VLDL Cholesterol 8.0 L HDL Cholesterol 58 05/03/18 05/03/18 05/04/18 16:40 21:40 03:43 Troponin I 0.057 0.045 0.052 Impressions: Chest X-Ray 05/03/18 09:35 IMPRESSION: 1. No acute cardiopulmonary process. 2. Sequela of COPD. Qualifiers - * PATIENT BEING DISCHARGED WITH ANY OF THE FOLLOWING DIAGNOSIS: No Plan Time Spent: Greater than 30 Minutes
[2018-05-04 10:38] VITALS: BP 162/63
--- NOTE | 2018-05-04 13:56 | PDOC PROGRESS REPORT ---
Subjective Progress Note for:: 05/04/18 Subjective:: Patient seems to be doing better. Patient requesting to be discharged. Patient unfortunately still smokes and is not amenable to quitting. Pt is denying any chest arm or neck discomfort. Patient denying any PND, orthopnea. Patient denied any sustained palpitations, dizziness, syncope, near syncope. Patient denying any fever chills. Patient denying any other significant discomfort. Patient is maintaining atrial fibrillation, heart rate is well controlled Review of systems: Rest review of systems negative. Medications: Medications have been reviewed. Reason For Visit: A. FIB RVR Physical Exam Vital Signs: Temp Pulse Resp BP Pulse Ox 97.9 F 89 16 162/63 H 89 L 05/04/18 10:37 05/04/18 10:37 05/04/18 10:37 05/04/18 10:37 05/04/18 10:37 Intake & Output 05/03/18 05/04/18 05/05/18 06:59 06:59 06:59 Intake Total 880 Balance 880 Weight 60.1 kg Exam: GENERAL: well-nourished and in no acute distress. Alert and oriented x3 HEAD: Atraumatic, normocephalic. EYES: HARI, sclera anicteric, conjunctiva are normal. ENT: Moist mucous membranes. No oral ulcerations or bleeding gums noted. No obvious ear, nose or throat abnormalities noted. NECK: supple without lymphadenopathy. Trachea is central. No cervical or axillary lymphadenopathy noted. Carotids are 2+, JVD WNL LUNGS: Breath sounds clear bilaterally. No wheezes rales or rhonchi noted. No significant dullness noted on percussion. CHEST: Palpation of the chest wall shows no significant chest wall tenderness. 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 ABDOMEN: Soft, no significant tenderness appreciated, normoactive bowel sounds. No guarding, no rebound. No rigidity noted . No masses appreciated. EXTREMITIES: Pedal pulses are 1-2+, no calf tenderness noted. No clubbing or cyanosis. negative pedal edema noted NEUROLOGICAL: Focused neurological exam showed no significant neurologic deficit. Normal speech, no focal weakness appreciated. PSYCH: Normal mood, normal affect. Judgment and insight within normal limits. SKIN: No significant ecchymosis, skin is noted to be warm. MUSCULOSKELETAL EXAM: No significant acute joint swelling noted. Results Laboratory Results: 05/04/18 03:43 05/04/18 03:43 05/04/18 05/04/18 03:43 03:43 WBC 6.6 RBC 3.85 Hgb 10.9 L Hct 32.8 L MCV 85 MCH 28.3 MCHC 33.2 RDW 15.6 H Plt Count 211 Seg Neutrophils % 60.8 Lymphocytes % 28.7 Monocytes % 6.4 Eosinophils % 3.0 Basophils % 1.1 Absolute Neutrophils 4.0 Absolute Lymphocytes 1.9 Absolute Monocytes 0.4 Absolute Eosinophils 0.2 Absolute Basophils 0.1 Sodium 143.4 Potassium 4.6 Chloride 105 Carbon Dioxide 31 H Anion Gap 7 BUN 21 H Creatinine 0.85 Est GFR ( Amer) > 60 Est GFR (Non-Af Amer) > 60 Glucose 103 Calcium 9.4 Phosphorus 3.5 Magnesium 2.0 Triglycerides 40 Cholesterol 121.25 LDL Cholesterol Direct 42 VLDL Cholesterol 8.0 L HDL Cholesterol 58 05/03/18 05/03/18 05/04/18 16:40 21:40 03:43 Troponin I 0.057 0.045 0.052 EKG Comments: Atrial fibrillation with controlled ventricular response. No sustained tachycardia or bradycardia noted. Impressions: Chest X-Ray 05/03/18 09:35 IMPRESSION: 1. No acute cardiopulmonary process. 2. Sequela of COPD. Assessment & Plan - Diagnosis (1) Atrial fibrillation with rapid ventricular response Is this a current diagnosis for this admission?: Yes (2) Chronic hypoxemic respiratory failure Is this a current diagnosis for this admission?: Yes (3) Crohns disease Qualifiers: Gastrointestinal tract location: unspecified location Digestive disease complication type: unspecified complication Qualified Code(s): K50.919 - Crohn 's disease, unspecified, with unspecified complications Is this a current diagnosis for this admission?: Yes (4) Hypertension Qualifiers: Hypertension type: essential hypertension Qualified Code(s): I10 - Essential (primary) hypertension Is this a current diagnosis for this admission?: Yes (5) CAD (coronary artery disease) Qualifiers: Coronary Disease-Associated Artery/Lesion type: [place] artery [place] vs. transplanted heart: [place] heart Associated angina: angina presence unspecified Qualified Code(s): I25.10 - Atherosclerotic heart disease of [place] coronary artery without angina pectoris Is this a current diagnosis for this admission?: Yes (6) Hyperlipidemia Qualifiers: Hyperlipidemia type: unspecified Qualified Code(s): E78.5 - Hyperlipidemia , unspecified Is this a current diagnosis for this admission?: Yes (7) Stented coronary artery Is this a current diagnosis for this admission?: Yes - Notes Notes: Patient wishes to be discharged. Patient medical regimen reviewed and is noted to be satisfactory. 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 She was given my card. Patient was advised to schedule a follow-up appointment with her senior ios software engineer within the next 1 week and may consider further evaluation with a echocardiogram and a stress test. Patient did not want these to be performed locally. Atrial fibrillation with rapid ventricular response: Heart rate now well controlled, continue with chronic anticoagulation. Troponin I elevation: Most likely related to supply demand mismatch from A. fib with rapid ventricular response. Patient not having any chest pain. Patient not diabetic. An ischemia workup therefore is not being planned as patient is not having any chest pain. Chronic respiratory failure: Continue oxygen supplementation. Crohn's disease: Continue current therapeutic regimen. Hypertension: Currently under reasonable control. Continue home antihypertensive therapy. Coronary artery disease: Patient status post stent placement x2 and 2 prior myocardial infarction. Currently stable without any angina symptoms. Continue with medical management. Hyperlipidemia: Continue with statin therapy. LDL goal should be less than 70. - Time Time with patient: Greater than 35 minutes Medications reviewed and adjusted accordingly: Yes
== END 2018-05-04 11:28 | disposition home or self-care (01) | DRG 309 ==
LOC: ER 09:32 → EH 12:02 → 3W 14:34
PROVIDERS: ADMIT Internal Medicine; ATTEND Internal Medicine
DX: I48.91 Unspecified atrial fibrillation (principal); J96.10 Chronic respiratory failure, unspecified whether with hypoxia or hypercapnia; K50.919 Crohn's disease, unspecified, with unspecified complications; I95.9 Hypotension, unspecified; J44.9 Chronic obstructive pulmonary disease, unspecified; I25.10 Atherosclerotic heart disease of native coronary artery without angina pectoris; I10 Essential (primary) hypertension; R07.9 Chest pain, unspecified; F17.210 Nicotine dependence, cigarettes, uncomplicated; Z86.73 Personal history of transient ischemic attack (TIA), and cerebral infarction without residual deficits; Z79.01 Long term (current) use of anticoagulants; Z79.51 Long term (current) use of inhaled steroids; Z79.899 Other long term (current) drug therapy
CPT/HCPCS: 36415; 71045; 80048; 80053; 80061; 82550; 82553; 83735; 84100; 84443; 84484; 85025; 93005; 93010; 96365; 99291; J3490; J7040

== ENCOUNTER 2018-06-17 10:53 | Emergency (ER) | payer MEDICARE, OTHER ==
--- NOTE | 2018-06-17 11:01 | ER Document Report ---
ED General - General Mode of Arrival: Medic Information source: Patient TRAVEL OUTSIDE OF THE [place] IN LAST 30 DAYS: No <MERCEDES HUSAIN - Last Filed: 06/17/18 11:32> <PRAVEEN REYES - Last Filed: 06/17/18 14:02> - General Stated Complaint: CHRONIC JOINT PAIN Time Seen by Provider: 06/17/18 10:59 Notes: 82-year-old female who presents to the emergency department today with complaints of initially only right hip and back pain for about 1 week. Patient goes on to mention several other joints that hurt which is a chronic issue for her. Patient states she is having difficulty "getting up and down" secondary to pain. Patient mentions that she has some nasal congestion and feels like she might be "coming down with something". Patient adds that she has also been having abdominal pain. Patient is a poor historian so history is limited. ( MERCEDES HUSAIN) - Related Data Allergies/Adverse Reactions: prednisone [Prednisone] Allergy (Unknown, Verified 06/17/18 11:05) cephalexin [Cephalexin] Allergy (Verified 06/17/18 11:05) Cephalosporins Allergy (Verified 06/17/18 11:05) ciprofloxacin [From Cipro] Allergy (Verified 06/17/18 11:05) cortisone [Cortisone] Allergy (Verified 06/17/18 11:05) Penicillins Allergy (Verified 06/17/18 11:05) phenazopyridine [Phenazopyridine] Allergy (Verified 06/17/18 11:05) Sulfa (Sulfonamide Antibiotics) Allergy (Verified 06/17/18 11:05) sulfamethoxazole [From Bactrim] Allergy (Verified 06/17/18 11:05) tramadol HCl [From Ultram] Allergy (Verified 06/17/18 11:05) trimethoprim [From Bactrim] Allergy (Verified 06/17/18 11:05) Past Medical History - General Information source: Patient - Social History Smoking Status: Former Smoker Cigarette use (# per day): No Family History: CAD - Father, COPD - Brother, CVA - Mother, DM, Hypertension, Malignancy - 1 sister colon cancer and another sister lung cancer - Past Medical History Cardiac Medical History: Reports: Hx Atrial Fibrillation, Hx Coronary Artery Disease - Has had a couple of stents placed in her arteries., Hx Heart Attack - 10/2014, Hx Hypercholesterolemia, Hx Hypertension Pulmonary Medical History: Reports: Hx Asthma, Hx COPD, Hx Pneumonia Neurological Medical History: Reports: 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, speech deficit Endocrine Medical History: Reports: Hx Graves' Disease Renal/ Medical History: Reports: Hx Renal Insufficiency Malignancy Medical History: Reports: Hx Skin Cancer GI Medical History: Reports: Hx Crohn's Disease, Hx Gastroesophageal Reflux Disease, Hx Hiatal Hernia, Hx Ulcer, Hx Ulcerative Colitis, Hx Colonoscopy Musculoskeletal Medical History: Reports Hx Arthritis Psychiatric Medical History: Reports: Hx Depression Past Surgical History: Reports: Hx Cardiac Catheterization, Hx Coronary Stent - x2, Hx Umbilical Hernia, Other - Skin cancer - Immunizations Hx Diphtheria, Pertussis, Tetanus Vaccination: Yes Hx Pneumococcal Vaccination: 07/08/11 <MERCEDES HUSAIN - Last Filed: 06/17/18 11:32> Review of Systems - Review of Systems Constitutional: No symptoms reported EENT: See HPI, Nose congestion Cardiovascular: No symptoms reported Respiratory: No symptoms reported Gastrointestinal: See HPI, Abdominal pain Genitourinary: No symptoms reported Female Genitourinary: No symptoms reported Musculoskeletal: See HPI, Joint pain - initially complains of right hip and back pain, goes on to mention several other joints having pain as well which is chronic Skin: No symptoms reported Hematologic/Lymphatic: No symptoms reported Neurological/Psychological: No symptoms reported -: Yes All other systems reviewed and negative <MERCEDES HUSAIN - Last Filed: 06/17/18 11:32> Physical Exam <MERCEDES HUSAIN - Last Filed: 06/17/18 11:32> <PRAVEEN REYES - Last Filed: 06/17/18 14:02> - Vital signs Vitals: Temp Resp BP Pulse Ox 97.1 F 16 188/78 H 95 06/17/18 11:03 06/17/18 11:03 06/17/18 11:03 06/17/18 11:03 - Notes Notes: Physical Exam: General: Alert, appears well. Voice is hoarse. HEENT: Normocephalic. Atraumatic. PERRL. Extraocular movements intact. Oropharynx clear. Nasal congestion. Neck: Supple. Non-tender. Respiratory: No respiratory distress. Clear and equal breath sounds bilaterally. Cardiovascular: Occasional premature beats. Abdominal: Soft, mild epigastric abdominal tenderness with palpation. No distension. Normal Bowel Sounds. Back: Non-tender. No deformity or step off. Extremities: Moves all four extremities. Upper extremities: Normal inspection. Normal ROM. No large osteoarthritic joints. Lower extremities: Normal inspection. No edema. Normal ROM. No large osteoart hritic joints. Neurological: Normal cognition. AAOx4. Normal speech. Psychological: Normal affect. Normal Mood. Skin: Warm. Dry. Normal color. (MERCEDES HUSAIN) Course - Laboratory Result Diagrams: 06/17/18 11:00 06/17/18 11:00 <MERCEDES HUSAIN - Last Filed: 06/17/18 11:32> - Laboratory Result Diagrams: 06/17/18 11:00 06/17/18 11:00 - Diagnostic Test Radiology reviewed: Image reviewed - Acute abdominal series shows COPD, with some constipation probably, nothing acute - EKG Interpretation by Me EKG shows normal: Sinus rhythm, [place], Intervals, QRS Complexes. abnormal: ST-T Waves - Minimal ST depression in the lateral leads Rate: Normal - 59 Rhythm: NSR, APC's - Frequent PACs with compensatory pause [place]/QRS: IVCD When compared to previous EKG there are: No significant change - The lateral T wave inversion noted today has been present on previous EKGs although it was not present on the most recent one in April, it was present in February. <PRAVEEN REYES - Last Filed: 06/17/18 14:02> - Re-evaluation Re-evalutation: 06/17/18 13:55 Acute abdominal series does not show any acute problems. EKG is unremarkable. Lab work is unremarkable including an undetectable C-reactive protein. Urinalysis is clean. There is no obvious explanation for her generalized pains. I did speak with her son earlier who tells me that she did not take any of her pain medication, not even a Tylenol prior to coming to the emergency room. Patient also told me this stating she wanted to be sure that we saw how much pain she was having. (PRAVEEN REYES) - Vital Signs Vital signs: Temp Pulse Resp BP Pulse Ox 97.1 F 20 193/75 H 95 06/17/18 11:03 06/17/18 12:01 06/17/18 12:01 12/11/18 12:01 - Laboratory Laboratory results interpreted by me: 06/17/18 06/17/18 06/17/18 11:00 11:00 12:00 Hgb 11.7 L Hct 35.4 L RDW 15.6 H BUN 25 H Est GFR (Non-Af Amer) 58 L Total Protein 6.1 L Urine Protein 30 H Discharge <MERCEDES HUSAIN - Last Filed: 06/17/18 11:32> <PRAVEEN REYES - Last Filed: 06/17/18 14:02> - Discharge Clinical Impression: Generalized pain Condition: Stable Disposition: HOME, SELF-CARE Additional Instructions: Generalized Pain: There was no clear explanation for your generalized pain you are feeling today. Your lab work was normal, there was no evidence of any inflammatory process or any infection. Your generalized pain today may be related to the cold weather we have been having recently. Be sure not to miss any of your regular medications. Drink plenty of fluids. Take Tylenol and ibuprofen for pain if needed. Follow-up with your primary care doctor this week if not improving. RETURN TO THE EMERGENCY ROOM IF ANY NEW OR WORSENING SYMPTOMS. Referrals: RACHEL MEDRANO FNP [Primary Care Provider] - Follow up in 3-5 days Scribe Attestation: 06/17/18 14:00 I personally performed the services described in the documentation, reviewed and edited the documentation which was dictated to the scribe in my presence, and it accurately records my words and actions. (PRAVEEN REYES) Scribe Documentation - Scribe Written by Bradley:: Bradley Barros, 06/17/2018 1114 acting as scribe for :: Zelda <MERCEDES HUSAIN - Last Filed: 06/17/18 11:32>
[2018-06-17 11:27] LABS: ABSOLUTE BASOPHILS # (AUTO) 0.1 10^3/uL (0.0-0.2); ABSOLUTE EOSINOPHILS # (AUTO) 0.1 10^3/uL (0.0-0.6); ABSOLUTE LYMPHOCYTES (AUTO) 1.3 10^3/uL (0.5-4.7); ABSOLUTE MONOCYTES (AUTO) 0.4 10^3/uL (0.1-1.4); ABSOLUTE NEUT (AUTO) 3.9 10^3/uL (1.7-8.2); BASOPHILS % (AUTO) 1.3 % (0-2); EOSINOPHILS % (AUTO) 1.3 % (0-6); HEMATOCRIT 35.4 % (36.0-47.0); HEMOGLOBIN 11.7 g/dL (12.0-15.5); LYMPHOCYTES % (AUTO) 23.2 % (13-45); MEAN CORPUSCULAR HEMOGLOBIN 28.7 pg (27.0-33.4); MEAN CORPUSCULAR HGB CONC 33.1 g/dL (32.0-36.0); MEAN CORPUSCULAR VOLUME 87 fl (80-97); MONOCYTES % (AUTO) 6.3 % (3-13); PLATELET COUNT 264 10^3/uL (150-450); RED BLOOD COUNT 4.08 10^6/uL (3.72-5.28); RED CELL DISTRIBUTION WIDTH 15.6 % (11.5-14.0); SEGMENTED NEUTROPHILS % (AUTO) 67.9 % (42-78); TOTAL CELLS COUNTED % (AUTO) 100 %; WHITE BLOOD COUNT 5.8 10^3/uL (4.0-10.5)
[2018-06-17 11:44] LABS: ALANINE AMINOTRANSFERASE 20 U/L (9-52); ALBUMIN 3.7 g/dL (3.5-5.0); ALKALINE PHOSPHATASE 52 U/L (38-126); ANION GAP 7 (5-19); ASPARTATE AMINO TRANSFERASE 23 U/L (14-36); BILIRUBIN,DIRECT 0.3 mg/dL (0.0-0.4); BILIRUBIN,TOTAL 0.4 mg/dL (0.2-1.3); BLOOD UREA NITROGEN 25 mg/dL (7-20); CALCIUM 9.4 mg/dL (8.4-10.2); CARBON DIOXIDE 30 mmol/L (22-30); CHLORIDE 105 mmol/L (98-107); CREATINE KINASE 33 U/L (30-135); GLUCOSE 94 mg/dL (75-110); POTASSIUM 4.6 mmol/L (3.6-5.0); SODIUM 142.3 mmol/L (137-145); TOTAL PROTEIN 6.1 g/dL (6.3-8.2)
[2018-06-17 11:45] LABS: C-REACTIVE PROTEIN < 5.0 mg/L (<10.0)
[2018-06-17 11:53] LABS: CREATINE KINASE MB 1.1 ng/mL (<4.55); TROPONIN I 0.017 ng/mL
[2018-06-17 12:29] LABS: APPEARANCE,URINE CLEAR; BILIRUBIN,URINE NEGATIVE (NEGATIVE); COLOR,URINE COLORLESS; GLUCOSE, URINE NEGATIVE (NEGATIVE); KETONES,URINE NEGATIVE (NEGATIVE); LEUKOCYTE ESTERASE,URINE NEGATIVE (NEGATIVE); NITRITE,URINE NEGATIVE (NEGATIVE); PROTEIN,URINE 30 mg/dL (NEGATIVE); URINE SPECIFIC GRAVITY 1.007; UROBILINOGEN,URINE NEGATIVE mg/dL (<2.0)
--- NOTE | 2018-06-17 13:12 | EKG REPORT ---
SEVERITY:- ABNORMAL ECG - SINUS RHYTHM MULTIPLE ATRIAL PREMATURE COMPLEXES NONSPECIFIC INTRAVENTRICULAR CONDUCTION DELAY MINIMAL ST DEPRESSION, LATERAL LEADS : Confirmed by: Cathy Bacon MD 17-Jun-2018 13:11:26
[2018-06-17 14:04] VITALS: BP 184/74
--- NOTE | 2018-06-17 16:45 | RADIOLOGY REPORT (SQ) ---
EXAM DESCRIPTION: ACUTE ABDOMEN SERIES COMPLETED DATE/TIME: 06/17/2018 11:56 am REASON FOR STUDY: Epigastric abdominal pain COMPARISON: 08/26/2016 NUMBER OF VIEWS: Three views. TECHNIQUE: Frontal chest, supine abdomen and upright/decubitus abdomen radiographic images acquired. LIMITATIONS: None. FINDINGS: CHEST: Stable chronic interstitial changes without evidence of acute cardiopulmonary disea se. No focal airspace disease, pleural effusion or pneumothorax. Atherosclerotic aorta. FREE AIR: None. No abnormal gas collections. BOWEL GAS PATTERN: Nonobstructive pattern. No dilated loops or air fluid levels. CALCIFICATIONS: Scattered vascular calcifications. Pelvic phleboliths. No definite radiopaque stone s overlie kidneys or expected course of ureters. HARDWARE: None in the abdomen. SOFT TISSUES: No gross mass or suggestion of organomegaly. BONES: Lower lumbar facet arthropathy. OTHER: No other significant finding. IMPRESSION: No evidence of acute intrathoracic or intra- abdominal/ pelvic process. TECHNICAL DOCUMENTATION: JOB ID: [id number] [employer]- All Rights Reserved Reading location - IP/workstation name: [email or web address]
== END 2018-06-17 14:24 | disposition home or self-care (01) ==
LOC: ER 10:53
DX: G89.29 Other chronic pain (principal); M25.552 Pain in left hip; M25.50 Pain in unspecified joint; M54.9 Dorsalgia, unspecified; R09.81 Nasal congestion; R10.816 Epigastric abdominal tenderness; R49.0 Dysphonia; R10.9 Unspecified abdominal pain; I49.1 Atrial premature depolarization; I25.10 Atherosclerotic heart disease of native coronary artery without angina pectoris; I10 Essential (primary) hypertension; I25.2 Old myocardial infarction; J44.9 Chronic obstructive pulmonary disease, unspecified; Z85.828 Personal history of other malignant neoplasm of skin; Z95.5 Presence of coronary angioplasty implant and graft; Z88.8 Allergy status to other drugs, medicaments and biological substances; Z88.1 Allergy status to other antibiotic agents; Z88.0 Allergy status to penicillin; Z88.2 Allergy status to sulfonamides; Z88.5 Allergy status to narcotic agent; Z87.891 Personal history of nicotine dependence
CPT/HCPCS: 36415; 51701; 74022; 80053; 81001; 82550; 82553; 84484; 85025; 86140; 93005; 93010; 99284

== ENCOUNTER 2018-08-23 17:36 | Emergency (ER) | payer OTHER ==
[2018-08-23 18:06] LABS: ABSOLUTE BASOPHILS # (AUTO) 0.1 10^3/uL (0.0-0.2); ABSOLUTE LYMPHOCYTES (AUTO) 1.6 10^3/uL (0.5-4.7); ABSOLUTE MONOCYTES (AUTO) 0.4 10^3/uL (0.1-1.4); ABSOLUTE NEUT (AUTO) 4.1 10^3/uL (1.7-8.2); EOSINOPHILS % (AUTO) 0.8 % (0-6); HEMATOCRIT 35.5 % (36.0-47.0); HEMOGLOBIN 11.8 g/dL (12.0-15.5); LYMPHOCYTES % (AUTO) 25.5 % (13-45); MEAN CORPUSCULAR HEMOGLOBIN 27.9 pg (27.0-33.4); MEAN CORPUSCULAR HGB CONC 33.1 g/dL (32.0-36.0); MEAN CORPUSCULAR VOLUME 84 fl (80-97); MONOCYTES % (AUTO) 6.3 % (3-13); PLATELET COUNT 250 10^3/uL (150-450); RED BLOOD COUNT 4.22 10^6/uL (3.72-5.28); RED CELL DISTRIBUTION WIDTH 14.4 % (11.5-14.0); SEGMENTED NEUTROPHILS % (AUTO) 66.4 % (42-78); TOTAL CELLS COUNTED % (AUTO) 100 %; WHITE BLOOD COUNT 6.2 10^3/uL (4.0-10.5)
[2018-08-23 18:23] LABS: ANION GAP 8 (5-19); BLOOD UREA NITROGEN 31 mg/dL (7-20); CALCIUM 9.5 mg/dL (8.4-10.2); CARBON DIOXIDE 31 mmol/L (22-30); CHLORIDE 103 mmol/L (98-107); GLUCOSE 100 mg/dL (75-110); POTASSIUM 4.6 mmol/L (3.6-5.0); SODIUM 142.3 mmol/L (137-145)
--- NOTE | 2018-08-23 18:43 | RADIOLOGY REPORT (SQ) ---
EXAM DESCRIPTION: CHEST SINGLE VIEW COMPLETED DATE/TIME: 08/23/2018 6:03 pm REASON FOR STUDY: cough COMPARISON: Chest x-ray 05/03/2018. EXAM PARAMETERS: NUMBER OF VIEWS: One view. TECHNIQUE: Single frontal radiographic view of the chest acquired. RADIATION DOSE: NA LIMITATIONS: None. FINDINGS: LUNGS AND PLEURA: The lungs are hyperlucent, suggestive of emphysema. No consolidation, p leural effusion or pneumothorax. MEDIASTINUM AND HILAR STRUCTURES: No masses. Contour normal. HEART AND VASCULAR STRUCTURES: Heart normal in size. Normal vasculature. BONES: No acute findings. HARDWARE: None in the chest. IMPRESSION: Emphysema. Otherwise, no acute radiographic finding in the chest. TECHNICAL DOCUMENTATION: JOB ID: [id number] [employer]- All Rights Reserved Reading location - IP/workstation name: [email or web address]
[2018-08-23 18:50] LABS: APPEARANCE,URINE SLIGHTLY-CLOUDY; BILIRUBIN,URINE NEGATIVE (NEGATIVE); COLOR,URINE YELLOW; GLUCOSE, URINE NEGATIVE (NEGATIVE); KETONES,URINE NEGATIVE (NEGATIVE); LEUKOCYTE ESTERASE,URINE MODERATE (NEGATIVE); NITRITE,URINE NEGATIVE (NEGATIVE); PROTEIN,URINE 100 mg/dL (NEGATIVE); UROBILINOGEN,URINE NEGATIVE mg/dL (<2.0)
[2018-08-23] MEDS ORDERED: NITROFURANTOIN MONOHYD/M-CRYST 100 MG CAPSULE PO ONE (19:43)
--- NOTE | 2018-08-23 19:44 | EKG REPORT ---
SEVERITY:- ABNORMAL ECG - SINUS RHYTHM ATRIAL PREMATURE COMPLEX NONSPECIFIC T ABNORMALITIES, LATERAL LEADS : Confirmed by: Cathy Bacon MD 23-Aug-2018 19:43:00
--- NOTE | 2018-08-23 19:48 | ER Document Report ---
ED General - General Chief Complaint: Flu Symptoms Stated Complaint: WEAKNESS Time Seen by Provider: 08/23/18 17:51 Primary Care Provider: RACHEL MEDRANO FNP [Primary Care Provider] - Follow up as needed TRAVEL OUTSIDE OF THE [place] IN LAST 30 DAYS: No - HPI Notes: Patient is a 82-year-old female that presents to the emergency department for chief complaint of 2 days of malaise. Patient reports feeling ill over the last 2 days. She states she is generally fatigued and not feeling well. She denies any fevers or chills. Patient does endorse some urinary frequency and dysuria. She reports some decreased appetite and nausea but denies any vomiting or diarrhea. She denies any abdominal pain, cough, congestion, chest pain and shortness of breath. She has not taken any medication at home for her symptoms. Past Medical History: Crohn's Past Surgical History: Umbilical hernia repair Social History: Denies alcohol and tobacco Family History: Reviewed and noncontributory for presenting illness Allergies: Reviewed, see documented allergy list. REVIEW OF SYSTEMS: CONSTITUTIONAL : No fever No chills No diaphoresis Malaise EENT: No vision changes No congestion No sore throat CARDIOVASCULAR: No chest pain No palpitations RESPIRATORY: No shortness of breath No cough No difficulty breathing GASTROINTESTINAL: No abdominal pain Nausea No vomiting No diarrhea GENITOURINARY: dysuria Urinary frequency No hematuria No difficulty urinating MUSCULOSKELETAL: No back pain No leg pain No arm pain SKIN: No rashes No lesions LYMPHATIC: No swollen, enlarged glands. NEUROLOGICAL: No lightheadedness No headache No weakness No paresthesias PSYCHIATRIC: No anxiety No depression PHYSICAL EXAMINATION: Vital signs reviewed, nursing noted reviewed. GENERAL: Well-appearing, well-nourished and in no acute distress. HEAD: Atraumatic, normocephalic. EYES: Eyes appear normal, extraocular movements intact, sclera anicteric, conjunctiva are normal. ENT: nares patent, oropharynx clear without exudates. Moist mucous membranes. NECK: Normal range of motion, supple without lymphadenopathy LUNGS: Breath sounds clear to auscultation bilaterally and equal. No wheezes rales or rhonchi. HEART: Regular rate and rhythm without murmurs ABDOMEN: Soft, nontender, normoactive bowel sounds. No rebound, guarding, or ri gidity. No masses appreciated. EXTREMITIES: Nontender, good range of motion, no pitting or edema. NEUROLOGICAL: No focal neurological deficits. Moves all extremities spontaneously Motor and sensory grossly intact on exam. PSYCH: Normal mood, normal affect. SKIN: Warm, Dry, normal turgor, no rashes or lesions noted on exposed skin - Related Data Allergies/Adverse Reactions: prednisone [Prednisone] Allergy (Unknown, Verified 06/17/18 11:05) cephalexin [Cephalexin] Allergy (Verified 06/17/18 11:05) Cephalosporins Allergy (Verified 06/17/18 11:05) ciprofloxacin [From Cipro] Allergy (Verified 06/17/18 11:05) cortisone [Cortisone] Allergy (Verified 06/17/18 11:05) Penicillins Allergy (Verified 06/17/18 11:05) phenazopyridine [Phenazopyridine] Allergy (Verified 06/17/18 11:05) Sulfa (Sulfonamide Antibiotics) Allergy (Verified 06/17/18 11:05) sulfamethoxazole [From Bactrim] Allergy (Verified 06/17/18 11:05) tramadol HCl [From Ultram] Allergy (Verified 06/17/18 11:05) trimethoprim [From Bactrim] Allergy (Verified 06/17/18 11:05) Past Medical History - Social History Smoking Status: Current Every Day Smoker Frequency of alcohol use: None Drug Abuse: None Family History: CAD - Father, COPD - Brother, CVA - Mother, DM, Hypertension, Malignancy - 1 sister colon cancer and another sister lung cancer Patient has suicidal ideation: No Patient has homicidal ideation: No - Past Medical History Cardiac Medical History: Reports: Hx Atrial Fibrillation, Hx Coronary Artery Disease - Has had a couple of stents placed in her arteries., Hx Heart Attack - 10/2014, Hx Hypercholesterolemia, Hx Hypertension Pulmonary Medical History: Reports: Hx Asthma, Hx COPD, Hx Pneumonia Neurological Medical History: Reports: 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 Denies: Hx Peritoneal Dialysis Malignancy Medical History: Reports: Hx Skin Cancer GI Medical History: Reports: Hx Crohn's Disease, Hx Gastroesophageal Reflux Di sease, Hx Hiatal Hernia, Hx Ulcer, Hx Ulcerative Colitis, Hx Colonoscopy Musculoskeletal Medical History: Reports Hx Arthritis Psychiatric Medical History: Reports: Hx Depression Past Surgical History: Reports: Hx Abdominal Surgery - hernia repair with mesh, Hx Cardiac Catheterization - with stents, Hx Cardiac Surgery - Stent, Hx Coronary Stent - x2, Hx Umbilical Hernia, Other - Skin cancer - Immunizations Hx Diphtheria, Pertussis, Tetanus Vaccination: Yes Hx Pneumococcal Vaccination: 07/08/11 Physical Exam - Vital signs Vitals: Resp Pulse Ox 17 96 08/23/18 17:45 08/23/18 17:45 Course - Re-evaluation Re-evalutation: 08/23/18 19:47 Vitals reviewed. Nursing notes reviewed. Patient is well-appearing and in no acute distress. She has no leukocytosis and is not septic. She does have a urinary tract infection that will be treated with Macrobid. Chest x-ray shows no pneumonia. Her EKG is unremarkable. Patient's abdominal exam is soft with no focal tenderness and imaging is not currently indicated. Patient has eaten a sandwich and is ambulatory. She will be discharged home in stable condition. She will follow with primary care for reevaluation in the next few days. Laboratory 08/23/18 08/23/18 08/23/18 17:50 17:50 17:50 WBC 6.2 RBC 4.22 Hgb 11.8 L Hct 35.5 L MCV 84 MCH 27.9 MCHC 33.1 RDW 14.4 H Plt Count 250 Seg Neutrophils % 66.4 Lymphocytes % 25.5 Monocytes % 6.3 Eosinophils % 0.8 Basophils % 1.0 Absolute Neutrophils 4.1 Absolute Lymphocytes 1.6 Absolute Monocytes 0.4 Absolute Eosinophils 0.0 Absolute Basophils 0.1 Sodium 142.3 Potassium 4.6 Chloride 103 Carbon Dioxide 31 H Anion Gap 8 BUN 31 H Creatinine 1.06 Est GFR ( Amer) > 60 Est GFR (Non-Af Amer) 50 L Glucose 100 Calcium 9.5 Troponin I 0.018 Urine Color Urine Appearance Urine pH Ur Specific [place] Urine Protein Urine Glucose (UA) Urine Ketones Urine Blood Urine Nitrite Urine Bilirubin Urine Urobilinogen Ur Leukocyte Esterase Urine WBC (Auto) Urine RBC (Auto) U Hyaline Cast (Auto) Urine Bacteria (Auto) Squamous Epi Cells Auto Urine Mucus (Auto) Urine Ascorbic Acid 08/23/18 18:30 WBC RBC Hgb Hct MCV MCH MCHC RDW Plt Count Seg Neutrophils % Lymphocytes % Monocytes % Eosinophils % Basophils % Absolute Neutrophils Absolute Lymphocytes Absolute Monocytes Absolute Eosinophils Absolute Basophils Sodium Potassium Chloride Carbon Dioxide Anion Gap BUN Creatinine Est GFR ( Amer) Est GFR (Non-Af Amer) Glucose Calcium Troponin I Urine Color YELLOW Urine Appearance SLIGHTLY-CLOUDY Urine pH 5.0 Ur Specific [place] 1.020 Urine Protein 100 H Urine Glucose (UA) NEGATIVE Urine Ketones NEGATIVE Urine Blood NEGATIVE Urine Nitrite NEGATIVE Urine Bilirubin NEGATIVE Urine Urobilinogen NEGATIVE Ur Leukocyte Esterase MODERATE H Urine WBC (Auto) 10 Urine RBC (Auto) 3 U Hyaline Cast (Auto) 3 Urine Bacteria (Auto) TRACE Squamous Epi Cells Auto 1 Urine Mucus (Auto) RARE Urine Ascorbic Acid NEGATIVE 08/23/18 19:47 - Vital Signs Vital signs: Temp Pulse Resp BP Pulse Ox 98.3 F 18 180/78 H 95 08/23/18 18:20 08/23/18 18:02 08/23/18 18:02 08/23/18 18:02 - Laboratory Result Diagrams: 08/23/18 17:50 08/23/18 17:50 Laboratory results interpreted by me: 08/23/18 08/23/18 08/23/18 17:50 17:50 18:30 Hgb 11.8 L Hct 35.5 L RDW 14.4 H Carbon Dioxide 31 H BUN 31 H Est GFR (Non-Af Amer) 50 L Urine Protein 100 H Ur Leukocyte Esterase MODERATE H - EKG Interpretation by Me Additional EKG results interpreted by me: 08/23/18 19:48 Interpreted by myself 1802: Normal sinus rhythm, rate 73, PACs, normal axis, no STEMI, no significant change from 06/17/18 Discharge - Discharge Clinical Impression: UTI (urinary tract infection) Qualifiers: Urinary tract infection type: site unspecified Hematuria presence: without hematuria Qualified Code(s): N39.0 - Urinary tract infection, site not specified Condition: Stable Disposition: HOME, SELF-CARE Instructions: Urinary Tract Infection ([facility]) Additional Instructions: Please return to the emergency department if you have any worsening, or concern of your symptoms. Please return to the emergency department if you develop chest pain, difficulty breathing, severe abdominal pain, or ongoing vomiting. Please follow-up with your primary care physician in 2-3 days and any other recommended physicians. If prescribed, take all medications as directed. If you have any questions or concerns do not hesitate to return the emergency department for evaluation. Stay well hydrated by increasing the amount of water you drink daily. Prescriptions: Nitrofurantoin Macrocrystal [Macrodantin] 100 mg PO BID #14 capsule Referrals: RACHEL MEDRANO FNP [Primary Care Provider] - Follow up in 3-5 days
[2018-08-23 20:02] VITALS: BP 187/75
== END 2018-08-23 20:26 | disposition home or self-care (01) ==
LOC: ER 17:36
DX: N39.0 Urinary tract infection, site not specified (principal); R53.1 Weakness; F17.200 Nicotine dependence, unspecified, uncomplicated; I48.91 Unspecified atrial fibrillation; I25.10 Atherosclerotic heart disease of native coronary artery without angina pectoris; E78.00 Pure hypercholesterolemia, unspecified; I11.0 Hypertensive heart disease with heart failure; J44.9 Chronic obstructive pulmonary disease, unspecified; I69.928 Other speech and language deficits following unspecified cerebrovascular disease; I25.2 Old myocardial infarction
CPT/HCPCS: 93005; 99284; 36415; 87086; 85025; 80048; 81001; 84484; 71045; 93010; A9270; J8499

== ENCOUNTER → 2018-09-16 | Outpatient (CLI) | payer OTHER ==
[2018-09-16 08:36] LABS: HEMATOCRIT 36.6 % (36.0-47.0); HEMOGLOBIN 12.3 g/dL (12.0-15.5); MEAN CORPUSCULAR HEMOGLOBIN 28.2 pg (27.0-33.4); MEAN CORPUSCULAR HGB CONC 33.5 g/dL (32.0-36.0); MEAN CORPUSCULAR VOLUME 84 fl (80-97); PLATELET COUNT 249 10^3/uL (150-450); RED BLOOD COUNT 4.35 10^6/uL (3.72-5.28); RED CELL DISTRIBUTION WIDTH 14.4 % (11.5-14.0); WHITE BLOOD COUNT 6.9 10^3/uL (4.0-10.5)
[2018-09-16 08:44] LABS: APPEARANCE,URINE CLEAR; BILIRUBIN,URINE NEGATIVE (NEGATIVE); COLOR,URINE YELLOW; GLUCOSE, URINE NEGATIVE (NEGATIVE); KETONES,URINE NEGATIVE (NEGATIVE); LEUKOCYTE ESTERASE,URINE NEGATIVE (NEGATIVE); NITRITE,URINE NEGATIVE (NEGATIVE); PROTEIN,URINE 30 mg/dL (NEGATIVE); UROBILINOGEN,URINE NEGATIVE mg/dL (<2.0)
[2018-09-16 09:06] LABS: ANION GAP 11 (5-19); BLOOD UREA NITROGEN 27 mg/dL (7-20); CARBON DIOXIDE 27 mmol/L (22-30); CHLORIDE 101 mmol/L (98-107); GLUCOSE 93 mg/dL (75-110); POTASSIUM 4.2 mmol/L (3.6-5.0); SODIUM 139.2 mmol/L (137-145)
== END ==
LOC: OD 07:29
PROVIDERS: ATTEND Internal Medicine Nephrology
DX: I12.9 Hypertensive chronic kidney disease with stage 1 through stage 4 chronic kidney disease, or unspecified chronic kidney disease (principal); N18.3 Chronic kidney disease, stage 3 (moderate)
CPT/HCPCS: 36415; 80048; 81001; 85027

== ENCOUNTER 2018-09-26 16:50 | Emergency (ER) | payer OTHER ==
[2018-09-26 17:42] LABS: ABSOLUTE LYMPHOCYTES (AUTO) 1.2 10^3/uL (0.5-4.7); ABSOLUTE MONOCYTES (AUTO) 0.4 10^3/uL (0.1-1.4); ABSOLUTE NEUT (AUTO) 4.3 10^3/uL (1.7-8.2); BASOPHILS % (AUTO) 0.6 % (0-2); EOSINOPHILS % (AUTO) 0.6 % (0-6); HEMATOCRIT 36.4 % (36.0-47.0); HEMOGLOBIN 11.9 g/dL (12.0-15.5); LYMPHOCYTES % (AUTO) 19.5 % (13-45); MEAN CORPUSCULAR HEMOGLOBIN 27.9 pg (27.0-33.4); MEAN CORPUSCULAR HGB CONC 32.8 g/dL (32.0-36.0); MEAN CORPUSCULAR VOLUME 85 fl (80-97); MONOCYTES % (AUTO) 7.4 % (3-13); PLATELET COUNT 238 10^3/uL (150-450); RED BLOOD COUNT 4.27 10^6/uL (3.72-5.28); RED CELL DISTRIBUTION WIDTH 15.1 % (11.5-14.0); SEGMENTED NEUTROPHILS % (AUTO) 71.9 % (42-78); TOTAL CELLS COUNTED % (AUTO) 100 %; WHITE BLOOD COUNT 5.9 10^3/uL (4.0-10.5)
[2018-09-26 17:49] LABS: PROTHROMBIN TIME 13.7 SEC (11.4-15.4)
--- NOTE | 2018-09-26 17:50 | RADIOLOGY REPORT (SQ) ---
EXAM DESCRIPTION: CHEST SINGLE VIEW COMPLETED DATE/TIME: 09/26/2018 5:39 pm REASON FOR STUDY: weakness COMPARISON: 08/23/2018 EXAM PARAMETERS: NUMBER OF VIEWS: One view. TECHNIQUE: Single frontal radiographic view of the chest acquired. RADIATION DOSE: NA LIMITATIONS: None. FINDINGS: LUNGS AND PLEURA: The lungs are hyperexpanded. There is slightly increased opacification behind the heart on the left. MEDIASTINUM AND HILAR STRUCTURES: No masses. Contour normal. HEART AND VASCULAR STRUCTURES: Cardiomegaly. No pulmonary edema. BONES: No acute findings. HARDWARE: None in the chest. OTHER: No other significant finding. IMPRESSION: Cardiomegaly without pulmonary edema. Chronic lung changes. Cannot exclude very limite d left lower lobe pneumonia. TECHNICAL DOCUMENTATION: JOB ID: [id number] [employer]- All Rights Reserved Reading location - IP/workstation name: [email or web address]
[2018-09-26 18:03] LABS: ALANINE AMINOTRANSFERASE 19 U/L (9-52); ALBUMIN 3.7 g/dL (3.5-5.0); ALKALINE PHOSPHATASE 55 U/L (38-126); ANION GAP 8 (5-19); ASPARTATE AMINO TRANSFERASE 19 U/L (14-36); BILIRUBIN,DIRECT 0.2 mg/dL (0.0-0.4); BILIRUBIN,TOTAL 0.2 mg/dL (0.2-1.3); BLOOD UREA NITROGEN 27 mg/dL (7-20); CARBON DIOXIDE 32 mmol/L (22-30); CHLORIDE 100 mmol/L (98-107); GLUCOSE 96 mg/dL (75-110); POTASSIUM 4.6 mmol/L (3.6-5.0); SODIUM 140.1 mmol/L (137-145); TOTAL PROTEIN 6.1 g/dL (6.3-8.2)
[2018-09-26 18:12] LABS: APPEARANCE,URINE CLEAR; BILIRUBIN,URINE NEGATIVE (NEGATIVE); COLOR,URINE YELLOW; GLUCOSE, URINE NEGATIVE (NEGATIVE); KETONES,URINE NEGATIVE (NEGATIVE); LEUKOCYTE ESTERASE,URINE NEGATIVE (NEGATIVE); NITRITE,URINE NEGATIVE (NEGATIVE); PROTEIN,URINE 30 mg/dL (NEGATIVE); URINE SPECIFIC GRAVITY 1.013; UROBILINOGEN,URINE NEGATIVE mg/dL (<2.0)
[2018-09-26 18:49] LABS: VENOUS BLOOD BASE EXCESS 4.4 mmol/L; VENOUS BLOOD HCO3 30.9 mmol/L (20-32); VENOUS BLOOD PCO2 55.4 mmHg (35-63); VENOUS BLOOD PH 7.36 (7.30-7.42)
--- NOTE | 2018-09-26 20:04 | ER Document Report ---
ED General - General Chief Complaint: Weakness Stated Complaint: WEAKNESS Time Seen by Provider: 09/26/18 18:29 Primary Care Provider: NALLELY GLASER MD [Primary Care Provider] - Follow up as needed Notes: Patient is an 82-year-old female with a past medical history of COPD, oxygen dependent, chronic pain, presents with feelings of weakness, fatigue as well as one episode of nausea and vomiting after taking a dose of Lyrica last night. Patient states that this is the first time she has ever taken that medication, when she woke up this morning she felt very lightheaded, dizzy and nauseous. States that this did persist throughout the day prompting her to come to the emergency department for further assessment. At the time of my evaluation she states the symptoms have resolved, she feels fine and would like to go home. She denies any chest pain or shortness of breath. No focal weakness or numbness. No confusion. No fever or constitutional symptoms. Has not seen her primary care physician regarding today's concerns. Nothing is been noted to improve or worsen her symptoms since onset. TRAVEL OUTSIDE OF THE [place] IN LAST 30 DAYS: No - Related Data Allergies/Adverse Reactions: prednisone [Prednisone] Allergy (Unknown, Verified 06/17/18 11:05) cephalexin [Cephalexin] Allergy (Verified 06/17/18 11:05) Cephalosporins Allergy (Verified 06/17/18 11:05) ciprofloxacin [From Cipro] Allergy (Verified 06/17/18 11:05) cortisone [Cortisone] Allergy (Verified 06/17/18 11:05) Penicillins Allergy (Verified 06/17/18 11:05) phenazopyridine [Phenazopyridine] Allergy (Verified 06/17/18 11:05) Sulfa (Sulfonamide Antibiotics) Allergy (Verified 06/17/18 11:05) sulfamethoxazole [From Bactrim] Allergy (Verified 06/17/18 11:05) tramadol HCl [From Ultram] Allergy (Verified 06/17/18 11:05) trimethoprim [From Bactrim] Allergy (Verified 06/17/18 11:05) Past Medical History - General Information source: Patient - Social History Smoking Status: Current Every Day Smoker Frequency of alcohol use: None Drug Abuse: None Lives with: Family Family History: CAD - Father, COPD - Brother, CVA - Mother, DM, Hypertension, Malignancy - 1 sister colon cancer and another sister lung cancer Patient has suicidal ideation: No Patient has homicidal ideation: No - Past Medical History Cardiac Medical History: Reports: Hx Atrial Fibrillation, Hx Coronary Artery Disease - Has had a couple of stents placed in her arteries., Hx Heart Attack - 10/2014, Hx Hypercholesterolemia, Hx Hypertension Pulmonary Medical History: Reports: Hx Asthma, Hx COPD, Hx Pneumonia Neurological Medical History: Reports: 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 Denies: Hx Peritoneal Dialysis Malignancy Medical History: Reports: Hx Skin Cancer GI Medical History: Reports: Hx Crohn's Disease, Hx Gastroesophageal Reflux Disease, Hx Hiatal Hernia, Hx Ulcer, Hx Ulcerative Colitis, Hx Colonoscopy Musculoskeletal Medical History: Reports Hx Arthritis Psychiatric Medical History: Reports: Hx Depression Past Surgical History: Reports: Hx Abdominal Surgery - hernia repair with mesh, Hx Cardiac Catheterization - with stents, Hx Cardiac Surgery - Stent, Hx Coronary Stent - x2, Hx Umbilical Hernia, Other - Skin cancer - Immunizations Hx Diphtheria, Pertussis, Tetanus Vaccination: Yes Hx Pneumococcal Vaccination: 07/08/11 Review of Systems - Review of Systems Notes: Constitutional: Negative for fever. Positive for fatigue, weakness HENT: Negative for sore throat. Eyes: Negative for visual changes. Cardiovascular: Negative for chest pain. Respiratory: Negative for shortness of breath. Gastrointestinal: Negative for abdominal pain, positive for nausea/vomiting Genitourinary: Negative for dysuria. Musculoskeletal: Negative for back pain. Skin: Negative for rash. Neurological: Negative for headaches, weakness or numbness. 10 point ROS negative except as marked above and in HPI. Physical Exam - Vital signs Vitals: Temp BP Pulse Ox 97.9 F 189/90 H 100 09/26/18 17:06 09/26/18 17:06 09/26/18 17:06 Interpretation: Hypertensive Notes: PHYSICAL EXAMINATION: GENERAL: Somewhat frail, elderly female in no distress HEAD: Atraumatic, normocephalic. EYES: Pupils equal round and reactive to light, extraocular movements intact, sclera anicteric, conjunctiva are normal. ENT: nares patent, oropharynx clear without exudates. Moderate dry mucous membranes. NECK: Normal range of motion, supple without lymphadenopathy LUNGS: Breath sounds clear to auscultation bilaterally and equal. No wheezes rales or rhonchi. HEART: Regular rate and rhythm without murmurs ABDOMEN: Soft, nontender, normoactive bowel sounds. No guarding, no rebound. No masses appreciated. EXTREMITIES: Normal range of motion, no pitting or edema. No cyanosis. NEUROLOGICAL: No focal neurological deficits. Moves all extremities spontaneously and on command. PSYCH: Normal mood, normal affect. SKIN: Warm, Dry, normal turgor, no rashes or lesions noted. Course - Re-evaluation Re-evalutation: 09/26/18 20:00 Presentation and an overall well-appearing patient in no acute distress who complains of generalized weakness. She states that this started after taking a dose of Lyrica last night and was associated with lightheadedness as well as one episode of nausea and vomiting. At time of evaluation, patient's vitals are within normal limits and they are denying any additional acute complaints. Physical examination without focal findings. No neurologic deficits. They deny any chest pain, shortness of breath, nausea, vomiting, or diarrhea. No dysuria or fever. Basic laboratories including and urinalysis are unremarkable. Troponin is also negative. Chest x-ray does not demonstrate a definitive pneumonia and patient has no clinical symptomology to suggest this diagnosis. Low clinical suspicion for ACS, occult pneumonia, acute intra-abdominal pathology, stroke, or transient ischemic attack based on clinical history, examination, and laboratories. They have tolerated oral intake without difficulty. I have discussed the importance of close outpatient follow-up as well as the need to return to emergency room immediately should they have any new or worsening symptoms. The patient and surrogate's are in agreement with this plan and verbalized indications for return to emergency department. - Vital Signs Vital signs: Temp Pulse Resp BP Pulse Ox 98.0 F 60 19 159/87 H 96 09/26/18 20:00 09/26/18 17:55 09/26/18 20:00 09/26/18 20:00 09/26/18 20:00 - Laboratory Result Diagrams: 09/26/18 17:20 09/26/18 17:20 Laboratory results interpreted by me: 09/26/18 09/26/18 09/26/18 17:20 17:20 17:40 Hgb 11.9 L RDW 15.1 H Carbon Dioxide 32 H BUN 27 H Creatinine 1.33 H Est GFR ( Amer) 46 L Est GFR (Non-Af Amer) 38 L Lactic Acid Total Protein 6.1 L Urine Protein 30 H 09/26/18 18:36 Hgb RDW Carbon Dioxide BUN Creatinine Est GFR ( Amer) Est GFR (Non-Af Amer) Lactic Acid < 0.5 L Total Protein Urine Protein - Diagnostic Test Radiology reviewed: Image reviewed, Reports reviewed Radiology results interpreted by me: 09/26/18 20:01 Chest x-ray: No acute infiltrate or pneumothorax - EKG Interpretation by Me Additional EKG results interpreted by me: 09/27/18 01:41 Sinus rhythm, rate 62. No ST elevations or depressions. LVH. QTC 435. Discharge - Discharge Clinical Impression: Chronic hypoxemic respiratory failure, Weakness Hypertension Qualifiers: Hypertension type: essential hypertension Qualified Code(s): I10 - Essential (primary) hypertension Medication reaction Qualifiers: Encounter type: initial encounter Qualified Code(s): T50.905A - Adverse effect of unspecified drugs, medicaments and biological substances, initial encounter Condition: Stable Disposition: HOME, SELF-CARE Additional Instructions: Please return to the emergency room immediately if you experience any concerning symptoms including high fevers, severe headache, chest pain, difficulty breathing, abdominal pain, slurred speech, numbness or weakness in your arms or legs, or any other symptom that concerns you. I would advise against taking Lyrica again in the future. Referrals: NALLELY GLASER MD [Primary Care Provider] - Follow up as needed
[2018-09-26 20:18] VITALS: BP 159/87
--- NOTE | 2018-09-26 23:07 | EKG REPORT ---
SEVERITY:- ABNORMAL ECG - SINUS RHYTHM ATRIAL PREMATURE COMPLEX LVH WITH SECONDARY REPOLARIZATION ABNORMALITY : Confirmed by: Eunice Servin 26-Sep-2018 23:07:01
== END 2018-09-26 20:18 | disposition home or self-care (01) ==
LOC: ER 16:50
DX: J96.11 Chronic respiratory failure with hypoxia (principal); R53.1 Weakness; R53.83 Other fatigue; R42 Dizziness and giddiness; J44.9 Chronic obstructive pulmonary disease, unspecified; Z99.81 Dependence on supplemental oxygen; G89.29 Other chronic pain; T50.905A Adverse effect of unspecified drugs, medicaments and biological substances, initial encounter; X58.XXXA Exposure to other specified factors, initial encounter; F17.200 Nicotine dependence, unspecified, uncomplicated; I48.91 Unspecified atrial fibrillation; I25.10 Atherosclerotic heart disease of native coronary artery without angina pectoris; E78.00 Pure hypercholesterolemia, unspecified; I69.928 Other speech and language deficits following unspecified cerebrovascular disease; I10 Essential (primary) hypertension; I25.2 Old myocardial infarction; Z88.6 Allergy status to analgesic agent; Z88.2 Allergy status to sulfonamides
CPT/HCPCS: 36415; 51701; 71045; 80053; 81001; 82803; 83605; 84484; 85025; 85610; 87040; 87086; 93005; 93010; 99285

== ENCOUNTER 2018-10-15 16:38 | Emergency (ER) | payer OTHER ==
--- NOTE | 2018-10-15 18:06 | ER Document Report ---
ED General - General Chief Complaint: Pain All Over Stated Complaint: BODY PAIN Time Seen by Provider: 10/15/18 18:05 Primary Care Provider: RACHEL MEDRANO FNP [Primary Care Provider] - Follow up as needed Mode of Arrival: Stretcher Information source: Patient Notes: HISTORY OF PRESENT ILLNESS: Patient is a 83-year-old female with an extensive cardiac history that also includes COPD on home oxygen at night who presents with increasing difficulty breathing above her baseline. She denies increasing cough or sputum production, also denies chest pain. Of note, the patient reports increasing swelling in both of her legs over the past several days. Location: Legs, lungs Onset: Several days ago Alleviation: None Provocation: Unknown Quality: Tightness, swelling Radiation: None Severity: Moderate Timing: Constant History of CAD: Yes Associated symptoms: No fevers or chills, no productive cough, no nausea or vomiting, no diaphoresis REVIEW OF SYSTEMS: CONSTITUTIONAL : Denies fever or chills, no sweats. Denies recent illness. EENT: Denies eye, ear, throat, or mouth pain or symptoms. Denies nasal or sinus congestion. CARDIOVASCULAR: Denies chest pain. Positive for swelling of the legs. RESPIRATORY: Denies cough, cold, or chest congestion. Positive for shortness of breath. Denies wheezing. GASTROINTESTINAL: Denies abdominal pain. Denies nausea, vomiting, or diarrhea. Denies constipation. GENITOURINARY: Denies difficulty urinating, painful urination, burning, frequency, or blood in urine. MUSCULOSKELETAL: Denies neck or back pain or joint pain or swelling. SKIN: Denies rash or skin lesions. HEMATOLOGIC : Denies easy bruising or bleeding. LYMPHATIC: Denies swollen, enlarged glands. NEUROLOGICAL: Denies altered mental status or loss of consciousness. Denies headache. Denies weakness or paralysis or loss of use of either side. Denies problems with gait or speech. Denies sensory or motor loss. PSYCHIATRIC: Denies anxiety or stress or depression. All other systems reviewed and negative. PHYSICAL EXAMINATION: GENERAL: Frail but well-appearing, well-nourished and in no acute distress. HEAD: Atraumatic, normocephalic. No scalp deformity, depression, or crepitance. EYES: Pupils are 2mm and equal/round/reactive to light, extraocular movements intact, sclera anicteric, conjunctiva are normal. ENT: Nares patent bilaterally, oropharynx. Moist mucous membranes. No tonsil hypertrophy. NECK: Normal range of motion, supple without lymphadenopathy. LUNGS: Breath sounds slightly diminished but present and equal bilaterally. No wheezes, rales, or rhonchi. HEART: Regular rate and rhythm without murmurs, rubs, or gallops. 2+ peripheral pulses. Normal capillary refill. ABDOMEN: Soft, nontender, nondistended. Normoactive bowel sounds. No guarding, no rebound. No masses appreciated. BACK: Normal contour, no midline tenderness. Rectal exam deferred. GENITAL/PELVIC: Deferred. EXTREMITIES: Normal range of motion, 2+ pitting edema more prominent on the right lower extremity. No cyanosis. NEUROLOGICAL: No focal neurological deficits. Moves all extremities spontaneously and on command. PSYCH: Normal mood, normal affect. No suicidal thoughts/ideations. No homicidal thoughts/ideations. No hallucinations. SKIN: Warm, dry, normal turgor, no rashes or lesions noted. ASSESSMENT AND PLAN: This patient is a 83-year-old female who presents with difficulty breathing and swelling in the extremities. This could represent heart failure versus peripheral edema versus acute SC. 1. Will obtain labs, urine, cardiac enzymes, BNP, chest x-ray, EKG, lower extremity Dopplers, and reassess. 2. Will observe in the emergency department until workup is complete. TRAVEL OUTSIDE OF THE [place] IN LAST 30 DAYS: No - Related Data Allergies/Adverse Reactions: prednisone [Prednisone] Allergy (Unknown, Verified 10/15/18 16:56) cephalexin [Cephalexin] Allergy (Verified 10/15/18 16:56) Cephalosporins Allergy (Verified 10/15/18 16:56) ciprofloxacin [From Cipro] Allergy (Verified 10/15/18 16:56) cortisone [Cortisone] Allergy (Verified 10/15/18 16:56) Penicillins Allergy (Verified 10/15/18 16:56) phenazopyridine [Phenazopyridine] Allergy (Verified 10/15/18 16:56) Sulfa (Sulfonamide Antibiotics) Allergy (Verified 10/15/18 16:56) sulfamethoxazole [From Bactrim] Allergy (Verified 10/15/18 16:56) tramadol HCl [From Ultram] Allergy (Verified 10/15/18 16:56) trimethoprim [From Bactrim] Allergy (Verified 10/15/18 16:56) Past Medical History - General Information source: Patient - Social History Smoking Status: Current Some Day Smoker Chew tobacco use (# tins/day): No Frequency of alcohol use: None Drug Abuse: None Lives with: Alone Family History: CAD - Father, COPD - Brother, CVA - Mother, DM, Hypertension, Malignancy - 1 sister colon cancer and another sister lung cancer Patient has suicidal ideation: No Patient has homicidal ideation: No - Past Medical History Cardiac Medical History: Reports: Hx Atrial Fibrillation, Hx Coronary Artery Disease - Has had a couple of stents placed in her arteries., Hx Heart Attack - 10/2014, Hx Hypercholesterolemia, Hx Hypertension Pulmonary Medical History: Reports: Hx Asthma, Hx COPD, Hx Pneumonia EENT Medical History: Reports: None Neurological Medical History: Reports: 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 Denies: Hx Peritoneal Dialysis Malignancy Medical History: Reports: Hx Skin Cancer GI Medical History: Reports: Hx Crohn's Disease, Hx Gastroesophageal Reflux Disease, Hx Hiatal Hernia, Hx Ulcer, Hx Ulcerative Colitis, Hx Colonoscopy Musculoskeletal Medical History: Reports Hx Arthritis Skin Medical History: Reports None Psychiatric Medical History: Reports: Hx Depression Traumatic Medical History: Reports: None Infectious Medical History: Reports: None Past Surgical History: Reports: Hx Abdominal Surgery - hernia repair with mesh, Hx Cardiac Catheterization - with stents, Hx Cardiac Surgery - Stent, Hx Coronary Stent - x2, Hx Umbilical Hernia, Other - Skin cancer - Immunizations Hx Diphtheria, Pertussis, Tetanus Vaccination: Yes Hx Pneumococcal Vaccination: 07/08/11 Physical Exam - Vital signs Vitals: Resp Pulse Ox 22 H 95 10/15/18 16:57 10/15/18 16:57 Course - Re-evaluation Re-evalutation: 10/15/18 22:40 Labs show negative cardiac enzymes but elevated BNP, which is consistent with her chest x-ray that shows mild interstitial edema. An ultrasound is negative for DVT. Patient was given oral Lasix and will be discharged home with return precautions and follow-up. But the patient and family voiced understanding and agreeing with the plan. - Vital Signs Vital signs: Temp Pulse Resp BP Pulse Ox 98.2 F 27 H 173/79 H 95 10/15/18 16:58 10/15/18 19:00 10/15/18 21:28 10/15/18 19:00 - Laboratory Result Diagrams: 10/15/18 19:40 10/15/18 19:40 Laboratory results interpreted by me: 10/15/18 10/15/18 10/15/18 19:40 19:40 19:40 Hgb 10.4 L Hct 31.5 L RDW 15.2 H Carbon Dioxide 31 H Anion Gap 2 L BUN 23 H Est GFR (Non-Af Amer) 51 L NT-Pro-B Natriuret Pep 3450 H Total Protein 5.6 L Albumin 3.3 L Urine Protein Urine Blood Ur Leukocyte Esterase 10/15/18 20:05 Hgb Hct RDW Carbon Dioxide Anion Gap BUN Est GFR (Non-Af Amer) NT-Pro-B Natriuret Pep Total Protein Albumin Urine Protein 30 H Urine Blood SMALL H Ur Leukocyte Esterase TRACE H - Diagnostic Test Radiology reviewed: Image reviewed, Reports reviewed - EKG Interpretation by Me EKG shows normal: Sinus rhythm Rate: Normal Rhythm: NSR Sartell/QRS: No: Right axis deviation, Left axis deviation, RBBB, LBBB, IVCD, LAHB/LAFB, LPHB/LPFB, Bifasicular block Voltage: No: Increased voltage, Consistant with LVH, Decreased voltage, Throughout, Limb leads P Waves: No: NURY, LAE, Absent, AV Dissociation, Other Heart block present: No: 1st Degree, Mobitz 1, Mobitz 2, CHB (3rd degree block) When compared to previous EKG there are: No significant change Discharge - Discharge Clinical Impression: Peripheral edema Heart failure Qualifiers: Heart failure type: unspecified Heart failure chronicity: chronic Qualified Code(s): I50.9 - Heart failure, unspecified Condition: Good Disposition: HOME, SELF-CARE Instructions: Edema, Peripheral ([facility]), Congestive Heart Failure ([facility]) Additional Instructions: You have been evaluated in the Emergency Department for trouble breathing and swelling in her legs. While here, you had blood work that was normal and it is now safe to be discharged home. Please follow-up with your primary physician as instructed in 1 week to be rechecked. Return to the Emergency Department if you experience chest pain, worsening breathing, weakness, or any other concerning symptoms. Prescriptions: Furosemide [Lasix 20 mg Tablet] 20 mg PO QAM #30 tablet Referrals: RACHEL MEDRANO FNP [Primary Care Provider] - Follow up as needed Print Language: Czech
[2018-10-15 19:56] LABS: ABSOLUTE BASOPHILS # (AUTO) 0.1 10^3/uL (0.0-0.2); ABSOLUTE EOSINOPHILS # (AUTO) 0.1 10^3/uL (0.0-0.6); ABSOLUTE LYMPHOCYTES (AUTO) 1.7 10^3/uL (0.5-4.7); ABSOLUTE MONOCYTES (AUTO) 0.4 10^3/uL (0.1-1.4); ABSOLUTE NEUT (AUTO) 3.8 10^3/uL (1.7-8.2); BASOPHILS % (AUTO) 1.1 % (0-2); EOSINOPHILS % (AUTO) 0.9 % (0-6); HEMATOCRIT 31.5 % (36.0-47.0); HEMOGLOBIN 10.4 g/dL (12.0-15.5); LYMPHOCYTES % (AUTO) 27.6 % (13-45); MEAN CORPUSCULAR HEMOGLOBIN 27.5 pg (27.0-33.4); MEAN CORPUSCULAR VOLUME 83 fl (80-97); PLATELET COUNT 236 10^3/uL (150-450); RED BLOOD COUNT 3.78 10^6/uL (3.72-5.28); RED CELL DISTRIBUTION WIDTH 15.2 % (11.5-14.0); SEGMENTED NEUTROPHILS % (AUTO) 63.4 % (42-78); TOTAL CELLS COUNTED % (AUTO) 100 %
--- NOTE | 2018-10-15 20:07 | RADIOLOGY REPORT (SQ) ---
EXAM DESCRIPTION: XR CHEST 1 VIEW COMPLETED DATE/TME: 10/15/2018 18:46 CLINICAL HISTORY: 83 years, Female, SOB COMPARISON: Multiple priors, most recent from 09/26/2018 NUMBER OF VIEWS: One TECHNIQUE: Single frontal view of the chest was obtained portably LIMITATIONS: None. FINDINGS: Cardiac and mediastinal contours are stable in appearance. Interstitial lines are noted about the periphery of both lung bases. Lungs are otherwise clear. No pleural effusion or pneumothorax. IMPRESSION: Findings suggest mild interstitial edema. copyright 2010 [employer]- All Rights Reserved
[2018-10-15 20:15] LABS: ALANINE AMINOTRANSFERASE 28 U/L (9-52); ALBUMIN 3.3 g/dL (3.5-5.0); ALKALINE PHOSPHATASE 60 U/L (38-126); ASPARTATE AMINO TRANSFERASE 19 U/L (14-36); BILIRUBIN,DIRECT 0.3 mg/dL (0.0-0.4); BILIRUBIN,TOTAL 0.3 mg/dL (0.2-1.3); BLOOD UREA NITROGEN 23 mg/dL (7-20); CALCIUM 9.3 mg/dL (8.4-10.2); GLUCOSE 100 mg/dL (75-110); POTASSIUM 4.5 mmol/L (3.6-5.0); TOTAL PROTEIN 5.6 g/dL (6.3-8.2)
[2018-10-15 20:21] LABS: ANION GAP 2 (5-19); CARBON DIOXIDE 31 mmol/L (22-30); CHLORIDE 105 mmol/L (98-107)
[2018-10-15 20:27] LABS: TROPONIN I 0.013 ng/mL
[2018-10-15 20:33] LABS: APPEARANCE,URINE CLEAR; BILIRUBIN,URINE NEGATIVE (NEGATIVE); COLOR,URINE STRAW; GLUCOSE, URINE NEGATIVE (NEGATIVE); KETONES,URINE NEGATIVE (NEGATIVE); LEUKOCYTE ESTERASE,URINE TRACE (NEGATIVE); NITRITE,URINE NEGATIVE (NEGATIVE); PROTEIN,URINE 30 mg/dL (NEGATIVE); UROBILINOGEN,URINE NEGATIVE mg/dL (<2.0)
[2018-10-15] MEDS ORDERED: HYDRALAZINE HCL INJ/PF 20 MG/1 ML SDV IV ONE (21:04)
[2018-10-15] MEDS ORDERED: HYDRALAZINE HCL 25 MG TABLET PO ONE (21:20)
[2018-10-15] MEDS ORDERED: FUROSEMIDE 40 MG TABLET PO ONE (22:39)
[2018-10-15 23:42] VITALS: BP 149/86
--- NOTE | 2018-10-16 08:03 | XCELERA REPORT ---
[address] [place] [facility] [address] Lower Extremity Venous Evaluation Procedure: Color flow and duplex imaging bilaterally of the veins of the lower extremities as well as the Common Femoral veins. Right Sided Venous Evaluation Normal vessel filling wall to wall, compression and augmentation as well as Colour flow down to the infrageniculate veins. Left Sided Venous Evaluation Peroneal veins not well visualized. Normal vessel filling wall to wall, compression and augmentation as well as Colour flow down to the infrageniculate veins. Interpretation Summary No duplex evidence of DVT or obstruction in the bilateral lower extremities. Limitations as noted. Name: CINTHYA DANIELLE Age: 83 yrs Gender: Female : 1935 Patient Status: Emergency Patient Location: ER Study Date: 10/15/2018 07:17 PM Reason For Study: Leg swelling Ordering Physician: DYLAN FREEMAN Performed By: Katie Ugarte : DYLAN FREEMAN > Uday Oakley
--- NOTE | 2018-10-16 11:06 | EKG REPORT ---
SEVERITY:- ABNORMAL ECG - SINUS RHYTHM ATRIAL PREMATURE COMPLEX NONSPECIFIC INTRAVENTRICULAR CONDUCTION DELAY PROBABLE LEFT VENTRICULAR HYPERTROPHY : Confirmed by: Eunice Servin 16-Oct-2018 11:05:38
== END 2018-10-15 23:20 | disposition home or self-care (01) ==
LOC: ER 16:38
DX: I11.0 Hypertensive heart disease with heart failure (principal); I50.9 Heart failure, unspecified; J44.9 Chronic obstructive pulmonary disease, unspecified; I25.10 Atherosclerotic heart disease of native coronary artery without angina pectoris; I25.2 Old myocardial infarction; Z95.5 Presence of coronary angioplasty implant and graft; Z99.81 Dependence on supplemental oxygen; Z87.01 Personal history of pneumonia (recurrent); Z85.3 Personal history of malignant neoplasm of breast
CPT/HCPCS: 93005; 99285; 36415; 85025; 80053; 81001; 84484; 83880; 93970 ×2; 71045; 93010; A9270

== ENCOUNTER 2018-10-16 09:19 | Emergency (ER) | payer OTHER ==
[2018-10-16] MEDS ORDERED: NORMAL SALINE 1000 ML 1,000 ML IV ONE (09:43)
[2018-10-16 09:49] LABS: ABSOLUTE BASOPHILS # (AUTO) 0.1 10^3/uL (0.0-0.2); ABSOLUTE LYMPHOCYTES (AUTO) 0.6 10^3/uL (0.5-4.7); ABSOLUTE MONOCYTES (AUTO) 0.3 10^3/uL (0.1-1.4); BASOPHILS % (AUTO) 0.9 % (0-2); EOSINOPHILS % (AUTO) 0.2 % (0-6); HEMATOCRIT 33.8 % (36.0-47.0); HEMOGLOBIN 11.1 g/dL (12.0-15.5); LYMPHOCYTES % (AUTO) 8.6 % (13-45); MEAN CORPUSCULAR HEMOGLOBIN 27.6 pg (27.0-33.4); MEAN CORPUSCULAR VOLUME 84 fl (80-97); MONOCYTES % (AUTO) 4.9 % (3-13); PLATELET COUNT 246 10^3/uL (150-450); RED BLOOD COUNT 4.04 10^6/uL (3.72-5.28); RED CELL DISTRIBUTION WIDTH 15.2 % (11.5-14.0); SEGMENTED NEUTROPHILS % (AUTO) 85.4 % (42-78); TOTAL CELLS COUNTED % (AUTO) 100 %
[2018-10-16 10:05] LABS: ALANINE AMINOTRANSFERASE 23 U/L (9-52); ALBUMIN 3.7 g/dL (3.5-5.0); ALKALINE PHOSPHATASE 62 U/L (38-126); ANION GAP 8 (5-19); ASPARTATE AMINO TRANSFERASE 19 U/L (14-36); BILIRUBIN,DIRECT 0.3 mg/dL (0.0-0.4); BILIRUBIN,TOTAL 0.3 mg/dL (0.2-1.3); BLOOD UREA NITROGEN 21 mg/dL (7-20); CALCIUM 9.6 mg/dL (8.4-10.2); CARBON DIOXIDE 30 mmol/L (22-30); CHLORIDE 102 mmol/L (98-107); CREATINE KINASE 40 U/L (30-135); GLUCOSE 163 mg/dL (75-110); POTASSIUM 3.8 mmol/L (3.6-5.0); SODIUM 140.4 mmol/L (137-145); TOTAL PROTEIN 6.2 g/dL (6.3-8.2)
[2018-10-16 10:17] LABS: CREATINE KINASE MB 0.8 ng/mL (<4.55); TROPONIN I 0.016 ng/mL
--- NOTE | 2018-10-16 10:43 | ER Document Report ---
ED General - General Chief Complaint: Chest Pain Stated Complaint: WEAKNESS Time Seen by Provider: 10/16/18 09:32 Primary Care Provider: RACHEL MEDRANO FNP [Primary Care Provider] - Follow up in 3-5 days Notes: Patient is an 83-year-old female who presents to the emergency department with multiple complaints. She states that she has abdominal pain, which she has had on and off for the past month. She is also complaining of right hip pain that she has also had on and off. She states that she has chest pain that started around 7:00 this morning. She denies any nausea, vomiting, or diarrhea. She has a chronic cough. She took some aspirin at home, which she takes every day. Past medical history includes Crohn's, colitis, atrial fibrillation, COPD, myocardial infarction, and Graves' disease. TRAVEL OUTSIDE OF THE [place] IN LAST 30 DAYS: No - Related Data Allergies/Adverse Reactions: prednisone [Prednisone] Allergy (Unknown, Verified 10/16/18 09:35) cephalexin [Cephalexin] Allergy (Verified 10/16/18 09:35) Cephalosporins Allergy (Verified 10/16/18 09:35) ciprofloxacin [From Cipro] Allergy (Verified 10/16/18 09:35) cortisone [Cortisone] Allergy (Verified 10/16/18 09:35) Penicillins Allergy (Verified 10/16/18 09:35) phenazopyridine [Phenazopyridine] Allergy (Verified 10/16/18 09:35) Sulfa (Sulfonamide Antibiotics) Allergy (Verified 10/16/18 09:35) sulfamethoxazole [From Bactrim] Allergy (Verified 10/16/18 09:35) tramadol HCl [From Ultram] Allergy (Verified 10/16/18 09:35) trimethoprim [From Bactrim] Allergy (Verified 10/16/18 09:35) Past Medical History - Social History Smoking Status: Current Some Day Smoker Family History: CAD - Father, COPD - Brother, CVA - Mother, DM, Hypertension, Malignancy - 1 sister colon cancer and another sister lung cancer Patient has suicidal ideation: No Patient has homicidal ideation: No - Past Medical History Cardiac Medical History: Reports: Hx Atrial Fibrillation, Hx Coronary Artery Disease - Has had a couple of stents placed in her arteries., Hx Heart Attack - 10/2014, Hx Hypercholesterolemia, Hx Hypertension Pulmonary Medical History: Reports: Hx Asthma, Hx COPD, Hx Pneumonia Neurological Medical History: Reports: 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 Denies: Hx Peritoneal Dialysis Malignancy Medical History: Reports: Hx Skin Cancer GI Medical History: Reports: Hx Crohn's Disease, Hx Gastroesophageal Reflux Disease, Hx Hiatal Hernia, Hx Ulcer, Hx Ulcerative Colitis, Hx Colonoscopy Musculoskeletal Medical History: Reports Hx Arthritis Psychiatric Medical History: Reports: Hx Depression Past Surgical History: Reports: Hx Abdominal Surgery - hernia repair with mesh, Hx Cardiac Catheterization - with stents, Hx Cardiac Surgery - Stent, Hx Coronary Stent - x2, Hx Umbilical Hernia, Other - Skin cancer - Immunizations Hx Diphtheria, Pertussis, Tetanus Vaccination: Yes Hx Pneumococcal Vaccination: 07/08/11 Review of Systems - Review of Systems Notes: REVIEW OF SYSTEMS: CONSTITUTIONAL : Denies recent illness. Denies recent unintentional weight loss. Denies fever, chills, or sweats. EENT: Denies eye, ear, throat, or mouth pain, discharge, or symptoms. Denies nasal or sinus congestion. CARDIOVASCULAR: See HPI RESPIRATORY: Denies shortness of breath, cough, congestion, difficulty breathing, or wheezing. GASTROINTESTINAL: See HPI GENITOURINARY: Denies difficulty urinating, burning, blood in urine, urgency or frequency. MUSCULOSKELETAL: Denies neck and back pain. Denies joint pain or swelling. SKIN: Denies rash, itchiness, or lesions HEMATOLOGIC : Denies easy bruising or bleeding. LYMPHATIC: Denies swollen, painful, enlarged glands. NEUROLOGICAL: Denies no numbness or tingling denies weakness. Denies headache. Denies altered mental status. Denies alteration in speech. PSYCHIATRIC: Denies stress, anxiety, alteration in sleep patterns, or depre ssion. All other systems reviewed and negative. Physical Exam - Vital signs Vitals: Resp 25 H 10/16/18 09:25 - Notes Notes: GENERAL: Chronically ill-appearing, no acute distress. HEAD: Normocephalic, atraumatic. EYES: PERRL, conjunctiva normal, all extraocular movements intact, sclera nonicteric ENT: Dry mucous membranes. NECK: Supple, no noticeable swelling, redness, rash. Normal range of motion. LUNGS: Equal breath sounds bilaterally and clear to auscultation. No wheezes rales or rhonchi. CARDIOVASCULAR: S1-S2, regular rate, regular rhythm. Radial pulses 2+, normal. ABDOMEN: Normoactive bowel sounds. Soft, nontender, no guarding, no rebound tenderness, and no masses palpated. EXTREMITIES: Normal strength and range of motion, no pitting or edema. No cyano sis. NEUROLOGICAL: Moves all extremities upon command. Strength 5/5 in all extremities. PSYCH: Normal mood, normal affect. SKIN: Warm, dry. No rash, lesions, ulcerations noted. Normal skin turgor. Course - Re-evaluation Re-evalutation: 10/16/18 13:12 I have reevaluated the patient and she states she feels better. She did have a bowel movement just prior to me coming into the room. Her CT of the abdomen shows chronic changes, no acute changes. Her x-ray of her hip shows degenerative changes and will most likely radiculopathy. Her heart rate has greatly improved to 74. Her heart oxygen saturation is 92%, but she has COPD. Waiting on second troponin. 10/16/18 14:08 Patient second troponin is indeterminate again. There are history of CHF, I suspect that she is chronically leaking troponins. Her previous troponins have been indeterminate in the past. She denies any chest pain at this time. Strict follow-up precautions were given. Verbal discharge instructions were given to the patient. They verbalized understanding. They are stable for discharge. - Vital Signs Vital signs: Temp Pulse Resp BP Pulse Ox 97.4 F 66 18 152/66 H 92 10/16/18 14:28 10/16/18 14:28 10/16/18 14:28 10/16/18 14:28 10/16/18 14:00 - Laboratory Result Diagrams: 10/16/18 09:40 10/16/18 09:40 Laboratory results interpreted by me: 10/16/18 10/16/18 09:40 09:40 Hgb 11.1 L Hct 33.8 L RDW 15.2 H Seg Neutrophils % 85.4 H Lymphocytes % 8.6 L BUN 21 H Glucose 163 H Total Protein 6.2 L Discharge - Discharge Clinical Impression: Constipation Qualifiers: Constipation type: other constipation type Qualified Code(s): K59.09 - Other constipation Chest pain Qualifiers: Chest pain type: unspecified Qualified Code(s): R07.9 - Chest pain, unspecified Abdominal pain Qualifiers: Abdominal location: generalized Qualified Code(s): R10.84 - Generalized a bdominal pain Atrial fibrillation Qualifiers: Atrial fibrillation type: chronic Qualified Code(s): I48.2 - Chronic atrial f ibrillation Condition: Stable Disposition: HOME, SELF-CARE Additional Instructions: You were seen today in the emergency department for abdominal pain and chest pain. Your abdominal pain is caused by constipation. Please continue to take your MiraLAX as prescribed. Your chest x-ray and labs are normal. Please follow-up with your primary care provider in regards to this visit. If you have worsening symptoms, please return to the emergency department. Referrals: RACHEL MEDRANO FNP [Primary Care Provider] - Follow up in 3-5 days
--- NOTE | 2018-10-16 10:46 | RADIOLOGY REPORT (SQ) ---
EXAM DESCRIPTION: HIP RIGHT AP/LATERAL COMPLETED DATE/TIME: 10/16/2018 10:25 am REASON FOR STUDY: right hip pain COMPARISON: 02/19/2018 NUMBER OF VIEWS: Two views. TECHNIQUE: AP pelvis and additional frog-leg view of the right hip. LIMITATIONS: None. FINDINGS: MINERALIZATION: Normal. RIGHT HIP: Mild degenerative narrowing. No lytic or blastic changes. LEFT HIP: Mild degenerative narrowing PUBIS AND ISCHIUM: No fracture. PELVIS: No fracture. SACRUM: No fracture or dislocation. No worrisome bone lesions. LOWER LUMBAR SPINE: Disc degeneration L4-L5 and L5-S1. SOFT TISSUES: No findings. OTHER: No other significant finding. IMPRESSION: Mild probably age-appropriate degenerative narrowing of the hip joints. Femoral heads n ormal in contour. No interval change since the previous study of 02/19/2018. Degenerative disc disea se lower lumbar spine. Radicular pain may be a consideration. TECHNICAL DOCUMENTATION: JOB ID: [id number] [email or web address]- All Rights Reserved Reading location - IP/workstation name: [email or web address]
--- NOTE | 2018-10-16 10:46 | RADIOLOGY REPORT (SQ) ---
EXAM DESCRIPTION: CHEST SINGLE VIEW COMPLETED DATE/TIME: 10/16/2018 10:23 am REASON FOR STUDY: bed11 cp COMPARISON: None. EXAM PARAMETERS: NUMBER OF VIEWS: One view. TECHNIQUE: Single frontal radiographic view of the chest acquired. RADIATION DOSE: NA LIMITATIONS: None. FINDINGS: LUNGS AND PLEURA: No opacities, masses or pneumothorax. No pleural effusion. Hyperinflati on MEDIASTINUM AND HILAR STRUCTURES: No masses. Contour normal. HEART AND VASCULAR STRUCTURES: Heart normal in size. Normal vasculature. BONES: No acute findings. HARDWARE: None in the chest. OTHER: No other significant finding. IMPRESSION: NO ACUTE RADIOGRAPHIC FINDING IN THE CHEST. COPD TECHNICAL DOCUMENTATION: JOB ID: [id number] [employer]- All Rights Reserved Reading location - IP/workstation name: [email or web address]
--- NOTE | 2018-10-16 11:06 | EKG REPORT ---
SEVERITY:- ABNORMAL ECG - ATRIAL FIBRILLATION VENTRICULAR PREMATURE COMPLEX PROBABLE LEFT VENTRICULAR HYPERTROPHY BORDERLINE T ABNORMALITIES, INFERIOR LEADS : Confirmed by: Eunice Servin 16-Oct-2018 11:05:21
[2018-10-16] MEDS ORDERED: MAG HYDROX/AL HYDROX/SIMETH SUSP 30 ML UDCUP PO ONE (11:27)
[2018-10-16] MEDS ORDERED: LIDOCAINE 2% VISCOUS SOLN 20 ML UDCUP PO ONE (11:27)
[2018-10-16] MEDS ORDERED: METOCLOPRAMIDE HCL ORAL SOLN 10 MG/10 ML UDCUP PO ONE (11:27)
--- NOTE | 2018-10-16 12:24 | RADIOLOGY REPORT (SQ) ---
EXAM DESCRIPTION: CT ABD/PELVIS WITH IV ONLY COMPLETED DATE/TIME: 10/16/2018 12:11 pm REASON FOR STUDY: abdominal pain COMPARISON: 12/28/2017 TECHNIQUE: CT scan of the abdomen and pelvis performed using helical scanning technique with dynamic intravenous contrast injection. No oral contrast. Images reviewed with lung, soft tissue, and bone windows. Reconstructed coronal and sagittal MPR images reviewed. Delayed images for evaluation of the urinary system also acquired. All images stored on PACS. All CT scanners at this facility use dose modulation, iterative reconstruction, and/or weight based d osing when appropriate to reduce radiation dose to as low as reasonably achievable (ALARA). [facility]: Dose Right [facility]: CareDose [facility]: Dose Right [facility]: Teradose 4D [facility]: [employer] CONTRAST TYPE AND DOSE: contrast/concentration: Isovue 350.00 mg/ml; Total Contrast Delivered: 71.0 ml; Total Saline Delivered: 66.0 ml RENAL FUNCTION: BUN 21 creatinine 0.89 RADIATION DOSE: CT Rad equipment meets quality standard of care and radiation dose reduction techniq ues were employed. CTDIvol: 6.5 - 8.9 mGy. DLP: 772 mGy-cm.. LIMITATIONS: None. FINDINGS: LOWER CHEST: Cardiomegaly. LIVER: Normal size. No masses. No dilated ducts. SPLEEN: Normal size. No focal lesions. PANCREAS: No masses. No significant calcifications. No adjacent inflammation or peripancreatic fluid collections. Pancreatic duct not dilated. GALLBLADDER: No identified stones by CT criteria. No inflammatory changes to suggest cholecystitis. ADRENAL GLANDS: No significant masses or asymmetry. RIGHT KIDNEY AND URETER: No solid masses. No significant calcifications. No hydronephrosis or hyd roureter. LEFT KIDNEY AND URETER: No solid masses. No significant calcifications. No hydronephrosis or hydr oureter. AORTA AND VESSELS: No aneurysm. No dissection. Extensive atherosclerosis. There is atherosclerosis in the SMA and renal arteries and in the celiac. RETROPERITONEUM: No retroperitoneal adenopathy, hemorrhage or masses. BOWEL AND PERITONEAL CAVITY: No masses or inflammatory changes. No free fluid or peritoneal masses. Considerable stool is present in the colon. APPENDIX: Normal. PELVIS: No mass. No free fluid. Normal bladder. ABDOMINAL WALL: No masses. No hernias. BONES: Lumbar degenerative changes. OTHER: No other significant finding. IMPRESSION: Cardiomegaly. Extensive abdominal atherosclerosis. Constipation. Lumbar degenerative changes. No acute finding in the abdomen or pelvis. TECHNICAL DOCUMENTATION: JOB ID: [id number] Quality ID # [id number]: Final reports with documentation of one or more dose reduction techniques (e.g., Au tomated exposure control, adjustment of the mA and/or kV according to patient size, use of iterative reconstruction technique) 2010 [employer]- All Rights Reserved Reading location - IP/workstation name: [email or web address]
[2018-10-16 14:29] VITALS: BP 152/66
== END 2018-10-16 14:28 | disposition home or self-care (01) ==
LOC: ER 09:19
DX: R07.9 Chest pain, unspecified (principal); R53.1 Weakness; K59.09 Other constipation; R10.84 Generalized abdominal pain; F17.200 Nicotine dependence, unspecified, uncomplicated; I48.2 Chronic atrial fibrillation; I69.928 Other speech and language deficits following unspecified cerebrovascular disease; I25.2 Old myocardial infarction; Z88.3 Allergy status to other anti-infective agents; Z88.0 Allergy status to penicillin; Z88.2 Allergy status to sulfonamides
CPT/HCPCS: 93005; 99284; 96360; 36415; 82553; 82550; 85025; 80053; 84484; 71045; 73502; 74177; 93010; J3490; A9270; J7030

== ENCOUNTER 2018-11-10 13:26 | Emergency (ER) | payer OTHER ==
[2018-11-10] MEDS ORDERED: IPRATROPIUM/ALBUTEROL 0.5-2.5 MG/3 ML AMPUL NEB ONE (14:29)
[2018-11-10] MEDS ORDERED: NORMAL SALINE 500 ML IV ONE (14:29)
--- NOTE | 2018-11-10 14:54 | ER Document Report ---
ED General - General Chief Complaint: Chest Congestion Stated Complaint: COUGH Time Seen by Provider: 11/10/18 14:05 Primary Care Provider: RACHEL MEDRANO FNP [Primary Care Provider] - Follow up as needed Mode of Arrival: Medic Information source: Patient, Outside Facility Records Notes: Patient is a frail-appearing 83-year-old female who presents to the ED with complaints of cough and sinus congestion. Patient reports her symptoms began 2 to 3 days ago and is progressing. Patient called the ambulance this morning because she was too weak and short of breath to get out of bed. Patient describes a productive cough with white/yellow sputum and SOB. Patient endorses a subjective fever and chills. She has tried [id number] Tylenol without relief. Past medical history of COPD, A. fib, CVA, MIx2, Crohn's disease. Was seen by her PCP, Rachel Thorne, last week, but denied symptoms at that time. Denies nausea, vomiting, hemoptysis, palpitations, audible wheezing, abdominal pain, dysuria, diarrhea, constipation TRAVEL OUTSIDE OF THE [place] IN LAST 30 DAYS: No - HPI Onset/Duration: Gradual Severity: Moderate Associated symptoms: Chills, Productive cough, Fever, Headache, Rhinnorhea. denies: Body/muscle aches, Diarrhea, Nausea, Vomiting Exacerbated by: Walking Relieved by: Denies Similar symptoms previously: No Recently seen / treated by doctor: No - Related Data Allergies/Adverse Reactions: prednisone [Prednisone] Allergy (Unknown, Verified 10/16/18 09:35) cephalexin [Cephalexin] Allergy (Verified 10/16/18 09:35) Cephalosporins Allergy (Verified 10/16/18 09:35) ciprofloxacin [From Cipro] Allergy (Verified 10/16/18 09:35) cortisone [Cortisone] Allergy (Verified 10/16/18 09:35) Penicillins Allergy (Verified 10/16/18 09:35) phenazopyridine [Phenazopyridine] Allergy (Verified 10/16/18 09:35) Sulfa (Sulfonamide Antibiotics) Allergy (Verified 10/16/18 09:35) sulfamethoxazole [From Bactrim] Allergy (Verified 10/16/18 09:35) tramadol HCl [From Ultram] Allergy (Verified 10/16/18 09:35) trimethoprim [From Bactrim] Allergy (Verified 10/16/18 09:35) Past Medical History - General Information source: Patient, [facility] Records - Social History Smoking Status: Current Some Day Smoker Chew tobacco use (# tins/day): No Frequency of alcohol use: None Drug Abuse: None Lives with: Family Family History: CAD - Father, COPD - Brother, CVA - Mother, DM, Hypertension, Malignancy - 1 sister colon cancer and another sister lung cancer Patient has suicidal ideation: No Patient has homicidal ideation: No - Past Medical History Cardiac Medical History: Reports: Hx Atrial Fibrillation, Hx Coronary Artery Disease - Has had a couple of stents placed in her arteries., Hx Heart Attack - 10/2014, Hx Hypercholesterolemia, Hx Hypertension Pulmonary Medical History: Reports: Hx Asthma, Hx COPD, Hx Pneumonia Neurological Medical History: Reports: 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 Denies: Hx Peritoneal Dialysis Malignancy Medical History: Reports: Hx Skin Cancer GI Medical History: Reports: Hx Crohn's Disease, Hx Gastroesophageal Reflux Disease, Hx Hiatal Hernia, Hx Ulcer, Hx Ulcerative Colitis, Hx Colonoscopy Musculoskeletal Medical History: Reports Hx Arthritis Psychiatric Medical History: Reports: Hx Depression Past Surgical History: Reports: Hx Abdominal Surgery - hernia repair with mesh, Hx Cardiac Catheterization - with stents, Hx Cardiac Surgery - Stent, Hx Coronary Stent - x2, Hx Umbilical Hernia, Other - Skin cancer - Immunizations Hx Diphtheria, Pertussis, Tetanus Vaccination: Yes Hx Pneumococcal Vaccination: 07/08/11 Review of Systems - Review of Systems Constitutional: Chills, Fever, Malaise, Weakness. denies: Diaphoresis EENT: Nose congestion, Sinus pressure, Throat pain. denies: Difficulty swallowing Cardiovascular: denies: Palpitations, Syncope, Dizziness Respiratory: Cough, Short of breath, Sputum. denies: Wheezing Gastrointestinal: denies: Abdominal pain, Diarrhea, Nausea, Vomiting Genitourinary: denies: Burning, Dysuria Physical Exam - Vital signs Vitals: Temp Resp BP Pulse Ox 97.7 F 18 164/71 H 94 11/10/18 13:41 11/10/18 13:41 11/10/18 13:41 11/10/18 13:41 - Notes Notes: PHYSICAL EXAMINATION: GENERAL: Well-appearing, well-nourished and in no acute distress. HEAD: Atraumatic, normocephalic. EYES: Pupils equal round and reactive to light, extraocular movements intact, conjunctiva are normal. ENT: Nares patent, oropharynx clear without exudates. Moist mucous membranes. NECK: Normal range of motion, supple without lymphadenopathy LUNGS: Breath sounds clear to auscultation bilaterally and equal. No wheezes rales or rhonchi. HEART: Regular rate and rhythm without murmurs ABDOMEN: Soft, nontender, nondistended abdomen. No guarding, no rebound. No masses appreciated. Female : deferred Musculoskeletal: Normal range of motion, no pitting or edema. No cyanosis. NEUROLOGICAL: Cranial nerves grossly intact. Normal speech, normal gait. Danita l sensory, motor exams PSYCH: Normal mood, normal affect. SKIN: Warm, Dry, normal turgor, no rashes or lesions noted. Course - Re-evaluation Re-evalutation: 11/10/18 21:34 Laboratory 11/10/18 11/10/18 11/10/18 13:43 13:43 15:27 WBC 5.8 RBC 4.10 Hgb 10.9 L Hct 34.1 L MCV 83 MCH 26.6 L MCHC 31.9 L RDW 14.8 H Plt Count 232 Seg Neutrophils % 69.4 Lymphocytes % 23.9 Monocytes % 5.3 Eosinophils % 0.5 Basophils % 0.9 Absolute Neutrophils 4.0 Absolute Lymphocytes 1.4 Absolute Monocytes 0.3 Absolute Eosinophils 0.0 Absolute Basophils 0.1 VBG pH VBG pCO2 VBG HCO3 VBG Base Excess Sodium 140.9 Potassium 4.1 Chloride 101 Carbon Dioxide 33 H Anion Gap 7 BUN 28 H Creatinine 1.04 Est GFR ( Amer) > 60 Est GFR (Non-Af Amer) 51 L Glucose 110 Calcium 9.5 Urine Color YELLOW Urine Appearance SLIGHTLY-CLOUDY Urine pH 6.0 Ur Specific [place] 1.008 Urine Protein NEGATIVE Urine Glucose (UA) NEGATIVE Urine Ketones NEGATIVE Urine Blood NEGATIVE Urine Nitrite NEGATIVE Urine Bilirubin NEGATIVE Urine Urobilinogen NEGATIVE Ur Leukocyte Esterase SMALL H Urine WBC (Auto) 5 U Hyaline Cast (Auto) 1 Urine Bacteria (Auto) TRACE Squamous Epi Cells Auto 3 Urine Mucus (Auto) RARE Urine Ascorbic Acid NEGATIVE 11/10/18 15:39 WBC RBC Hgb Hct MCV MCH MCHC RDW Plt Count Seg Neutrophils % Lymphocytes % Monocytes % Eosinophils % Basophils % Absolute Neutrophils Absolute Lymphocytes Absolute Monocytes Absolute Eosinophils Absolute Basophils VBG pH 7.37 VBG pCO2 52.6 VBG HCO3 29.4 VBG Base Excess 3.1 Sodium Potassium Chloride Carbon Dioxide Anion Gap BUN Creatinine Est GFR ( Amer) Est GFR (Non-Af Amer) Glucose Calcium Urine Color Urine Appearance Urine pH Ur Specific [place] Urine Protein Urine Glucose (UA) Urine Ketones Urine Blood Urine Nitrite Urine Bilirubin Urine Urobilinogen Ur Leukocyte Esterase Urine WBC (Auto) U Hyaline Cast (Auto) Urine Bacteria (Auto) Squamous Epi Cells Auto Urine Mucus (Auto) Urine Ascorbic Acid Chest X-Ray 11/10/18 14:28 IMPRESSION: NO ACUTE RADIOGRAPHIC FINDING IN THE CHEST. Temp Pulse Resp BP Pulse Ox 98.0 F 16 159/121 H 93 11/10/18 17:27 11/10/18 16:01 11/10/18 17:01 11/10/18 17:01 83-year-old female presents with complaint of nasal congestion, cough, sore throat, ear pressure. Vital signs reviewed and within normal limits except for elevated blood pressure which patient admits to not taking her blood pressure medication today. CBC, CMP, VBG are unremarkable. Chest x-ray shows no acute process. Presentation is most consistent with a viral upper respiratory inf ection. Patient is overall well appearance, well-hydrated. Patient denies any headache, neck pain, and has no evidence of meningismus on examination. Lungs are clear bilaterally. No evidence of respiratory distress. Based on clinical exam and history, I do not suspect an acute pneumonia, meningitis, strep pharyngitis, or an acute encephalitis. Will discharge patient with return precautions and followup recommendations. They are in agreement this plan have verbalized understanding return precautions. - Vital Signs Vital signs: Temp Pulse Resp BP Pulse Ox 98.0 F 16 159/121 H 93 11/10/18 17:27 11/10/18 16:01 11/10/18 17:01 11/10/18 17:01 - Laboratory Result Diagrams: 11/10/18 13:43 11/10/18 13:43 Laboratory results interpreted by me: 11/10/18 11/10/18 11/10/18 13:43 13:43 15:27 Hgb 10.9 L Hct 34.1 L MCH 26.6 L MCHC 31.9 L RDW 14.8 H Carbon Dioxide 33 H BUN 28 H Est GFR (Non-Af Amer) 51 L Ur Leukocyte Esterase SMALL H - Diagnostic Test Radiology reviewed: Image reviewed, Reports reviewed Discharge - Discharge Clinical Impression: Upper respiratory infection Qualifiers: URI type: unspecified URI Qualified Code(s): J06.9 - Acute upper respiratory infection, unspecified Sinusitis Qualifiers: Sinusitis location: unspecified location Chronicity: acute Recurrence: non- recurrent Qualified Code(s): J01.90 - Acute sinusitis, unspecified Condition: Good Disposition: HOME, SELF-CARE Instructions: Sinusitis ([facility]), Upper Respiratory Illness ([facility]), Viral Syndrome ([facility]) Additional Instructions: Follow up with your [id number] hours for further care or return to the ED IMMEDIATELY if symptoms worsen or you have any concerns. If you cannot afford to follow up with your primary care physician a list of low cost clinics have been provided at the end of your discharge papers as well. Most prescribed medications have multiple side effects. The safest thing to do is when filling your prescription speak to your pharmacist regarding possible interactions with your normal home medications and over the counter medications such as Ibuprofen, Tylenol, Benadryl. If you experience any symptoms that cause you discomfort or concern you should discontinue the medication immediately and return to the emergency room or call your primary care physician. Prescriptions: Chlorpheniramine/Dextromethorp [Coricidin Hbp Cough & Cold Tab] 1 each PO Q12H #14 tablet Forms: Elevated Blood Pressure Referrals: RACHEL MEDRANO FNP [Primary Care Provider] - Follow up as needed
--- NOTE | 2018-11-10 15:19 | RADIOLOGY REPORT (SQ) ---
EXAM DESCRIPTION: CHEST 2 VIEWS COMPLETED DATE/TIME: 11/10/2018 3:12 pm REASON FOR STUDY: cough COMPARISON: 10/16/2018 EXAM PARAMETERS: NUMBER OF VIEWS: two views TECHNIQUE: Digital Frontal and Lateral radiographic views of the chest acquired. RADIATION DOSE: NA LIMITATIONS: none FINDINGS: LUNGS AND PLEURA: No opacities, masses or pneumothorax. No pleural effusion. MEDIASTINUM AND HILAR STRUCTURES: No masses or contour abnormalities. HEART AND VASCULAR STRUCTURES: Heart normal size. No evidence for failure. BONES: No acute findings. HARDWARE: None in the chest. OTHER: No other significant finding. IMPRESSION: NO ACUTE RADIOGRAPHIC FINDING IN THE CHEST. TECHNICAL DOCUMENTATION: JOB ID: [id number] [email or web address]- All Rights Reserved Reading location - IP/workstation name: [email or web address]
[2018-11-10 15:50] LABS: ABSOLUTE BASOPHILS # (AUTO) 0.1 10^3/uL (0.0-0.2); ABSOLUTE LYMPHOCYTES (AUTO) 1.4 10^3/uL (0.5-4.7); ABSOLUTE MONOCYTES (AUTO) 0.3 10^3/uL (0.1-1.4); BASOPHILS % (AUTO) 0.9 % (0-2); EOSINOPHILS % (AUTO) 0.5 % (0-6); HEMATOCRIT 34.1 % (36.0-47.0); HEMOGLOBIN 10.9 g/dL (12.0-15.5); LYMPHOCYTES % (AUTO) 23.9 % (13-45); MEAN CORPUSCULAR HEMOGLOBIN 26.6 pg (27.0-33.4); MEAN CORPUSCULAR HGB CONC 31.9 g/dL (32.0-36.0); MEAN CORPUSCULAR VOLUME 83 fl (80-97); MONOCYTES % (AUTO) 5.3 % (3-13); PLATELET COUNT 232 10^3/uL (150-450); RED CELL DISTRIBUTION WIDTH 14.8 % (11.5-14.0); SEGMENTED NEUTROPHILS % (AUTO) 69.4 % (42-78); TOTAL CELLS COUNTED % (AUTO) 100 %; WHITE BLOOD COUNT 5.8 10^3/uL (4.0-10.5)
[2018-11-10 15:53] LABS: APPEARANCE,URINE SLIGHTLY-CLOUDY; BILIRUBIN,URINE NEGATIVE (NEGATIVE); COLOR,URINE YELLOW; GLUCOSE, URINE NEGATIVE (NEGATIVE); KETONES,URINE NEGATIVE (NEGATIVE); LEUKOCYTE ESTERASE,URINE SMALL (NEGATIVE); NITRITE,URINE NEGATIVE (NEGATIVE); PROTEIN,URINE NEGATIVE (NEGATIVE); URINE SPECIFIC GRAVITY 1.008; UROBILINOGEN,URINE NEGATIVE mg/dL (<2.0)
[2018-11-10 16:07] LABS: ANION GAP 7 (5-19); BLOOD UREA NITROGEN 28 mg/dL (7-20); CALCIUM 9.5 mg/dL (8.4-10.2); CARBON DIOXIDE 33 mmol/L (22-30); CHLORIDE 101 mmol/L (98-107); GLUCOSE 110 mg/dL (75-110); POTASSIUM 4.1 mmol/L (3.6-5.0); SODIUM 140.9 mmol/L (137-145)
[2018-11-10 16:20] LABS: VENOUS BLOOD BASE EXCESS 3.1 mmol/L; VENOUS BLOOD HCO3 29.4 mmol/L (20-32); VENOUS BLOOD PCO2 52.6 mmHg (35-63); VENOUS BLOOD PH 7.37 (7.30-7.42)
[2018-11-10] MEDS ORDERED: FLUTICASONE NASAL SPRAY 50 MCG/SPRY 120 SPRAY/16 GM NASL ONE (16:45)
[2018-11-10 17:09] VITALS: BP 159/121
== END 2018-11-10 17:37 | disposition home or self-care (01) ==
LOC: ER 13:26
DX: J06.9 Acute upper respiratory infection, unspecified (principal); J01.90 Acute sinusitis, unspecified; J02.9 Acute pharyngitis, unspecified; J44.9 Chronic obstructive pulmonary disease, unspecified; R05 Cough; R09.81 Nasal congestion; R06.02 Shortness of breath; R50.9 Fever, unspecified; R53.81 Other malaise; R53.1 Weakness; J34.89 Other specified disorders of nose and nasal sinuses; R51 Headache; I25.10 Atherosclerotic heart disease of native coronary artery without angina pectoris; I10 Essential (primary) hypertension; F17.200 Nicotine dependence, unspecified, uncomplicated; Z87.01 Personal history of pneumonia (recurrent); Z88.1 Allergy status to other antibiotic agents; Z88.8 Allergy status to other drugs, medicaments and biological substances; Z88.0 Allergy status to penicillin; Z88.2 Allergy status to sulfonamides; Z88.5 Allergy status to narcotic agent; Z85.828 Personal history of other malignant neoplasm of skin
CPT/HCPCS: 94640; 99284; 36415; 85025; 80048; 81001; 82803; 71046; A9270 ×2; J7040; J7620

== ENCOUNTER 2018-11-23 10:11 | Emergency (ER) | payer OTHER ==
[2018-11-23 11:04] LABS: APPEARANCE,URINE SLIGHTLY-CLOUDY; BILIRUBIN,URINE NEGATIVE (NEGATIVE); COLOR,URINE YELLOW; GLUCOSE, URINE NEGATIVE (NEGATIVE); KETONES,URINE NEGATIVE (NEGATIVE); LEUKOCYTE ESTERASE,URINE LARGE (NEGATIVE); NITRITE,URINE NEGATIVE (NEGATIVE); PROTEIN,URINE 100 mg/dL (NEGATIVE); URINE SPECIFIC GRAVITY 1.016; UROBILINOGEN,URINE NEGATIVE mg/dL (<2.0)
--- NOTE | 2018-11-23 11:12 | ER Document Report ---
ED Dizziness/Weakness - General Chief Complaint: Altered Mental Status Stated Complaint: ALTERED MENTAL STATUS Time Seen by Provider: 11/23/18 10:35 Primary Care Provider: RACHEL MEDRANO FNP [Primary Care Provider] - Follow up as needed Notes: 83-year-old female with history of CVA, atrial fibrillation on Eliquis, COPD, CHF presents to the emergency department brought in by EMS for chief complaint of confusion. She states that she feels like she is having "motion sickness". She says the back of her head hurts in the occiput. She denies any vision changes, tinnitus, numbness or paresthesias in her extremities, complains of acute weakness, chest pain, complains of shortness of breath, complains of nausea, denies vomiting, complains of abdominal pain, denies any flank pain, denies urinary symptoms. Of note, family pulled me outside of the room and said that she has had multiple visits here and she was out late last night and an event. She lays around all the time at home and is generally inactive. TRAVEL OUTSIDE OF THE [place] IN LAST 30 DAYS: No - Related Data Allergies/Adverse Reactions: prednisone [Prednisone] Allergy (Unknown, Verified 10/16/18 09:35) cephalexin [Cephalexin] Allergy (Verified 10/16/18 09:35) Cephalosporins Allergy (Verified 10/16/18 09:35) ciprofloxacin [From Cipro] Allergy (Verified 10/16/18 09:35) cortisone [Cortisone] Allergy (Verified 10/16/18 09:35) Penicillins Allergy (Verified 10/16/18 09:35) phenazopyridine [Phenazopyridine] Allergy (Verified 10/16/18 09:35) Sulfa (Sulfonamide Antibiotics) Allergy (Verified 10/16/18 09:35) sulfamethoxazole [From Bactrim] Allergy (Verified 10/16/18 09:35) tramadol HCl [From Ultram] Allergy (Verified 10/16/18 09:35) trimethoprim [From Bactrim] Allergy (Verified 10/16/18 09:35) Past Medical History - Social History Smoking Status: Current Every Day Smoker Family History: CAD - Father, COPD - Brother, CVA - Mother, DM, Hypertension, Malignancy - 1 sister colon cancer and another sister lung cancer Patient has suicidal ideation: No Patient has homicidal ideation: No - Past Medical History Cardiac Medical History: Reports: Hx Atrial Fibrillation, Hx Coronary Artery Disease - Has had a couple of stents placed in her arteries., Hx Heart Attack - 10/2014, Hx Hypercholesterolemia, Hx Hypertension Pulmonary Medical History: Reports: Hx Asthma, Hx COPD, Hx Pneumonia Neurological Medical History: Reports: 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 Denies: Hx Peritoneal Dialysis Malignancy Medical History: Reports: Hx Skin Cancer GI Medical History: Reports: Hx Crohn's Disease, Hx Gastroesophageal Reflux Disease, Hx Hiatal Hernia, Hx Ulcer, Hx Ulcerative Colitis, Hx Colonoscopy Musculoskeletal Medical History: Reports Hx Arthritis Psychiatric Medical History: Reports: Hx Depression Past Surgical History: Reports: Hx Abdominal Surgery - hernia repair with mesh, Hx Cardiac Catheterization - with stents, Hx Cardiac Surgery - Stent, Hx Coronary Stent - x2, Hx Umbilical Hernia, Other - Skin cancer - Immunizations Hx Diphtheria, Pertussis, Tetanus Vaccination: Yes Hx Pneumococcal Vaccination: 07/08/11 Review of Systems - Review of Systems Constitutional: See HPI EENT: See HPI Cardiovascular: See HPI Respiratory: See HPI Gastrointestinal: See HPI Genitourinary: See HPI Neurological/Psychological: See HPI Physical Exam - Vital signs Vitals: Temp BP Pulse Ox 98.5 F 163/70 H 93 11/23/18 10:15 11/23/18 10:15 11/23/18 10:15 - Notes Notes: PHYSICAL EXAMINATION: Reviewed vital signs and charting by RN GENERAL: Well-appearing, well-nourished and in no acute distress. HEAD: Atraumatic, normocephalic. No scalp deformity, depression, or crepitance. EYES: Pupils are 3 mm and equal/round/reactive to light, extraocular movements intact, sclera anicteric, conjunctiva are normal. NECK: Normal range of motion, supple without lymphadenopathy. LUNGS: Breath sounds present, equal, and clear to auscultation bilaterally. No wheezes, rales, or rhonchi. HEART: Irregularly irregular rate and rhythm without murmurs, rubs, or gallops. 2+ peripheral pulses. Normal capillary refill. ABDOMEN: Soft, mild epigastric tenderness, nondistended. Normoactive bowel sounds. No guarding, no rebound. No masses appreciated. BACK: Normal contour, no midline tenderness. Rectal exam deferred. PELVC: Deferred. EXTREMITIES: Normal range of motion, no pitting or edema. No cyanosis. NEUROLOGICAL: No focal neurological deficits. Patient is acutely weak and has a difficult time participating in strength testing, does follow commands x4. Moves all extremities spontaneously and on command. PSYCH: Normal mood, normal affect. No suicidal thoughts/ideations. No homocidal thoughts/ideations. No hallucinations. SKIN: Warm, dry, normal turgor, no rashes or lesions noted. Course - Re-evaluation Re-evalutation: 11/23/18 13:36 Patient is cachectic and weak but alert and oriented x4. CT head negative for any acute intracranial pathology. Lab work is all grossly within normal limits. She does have evidence of urinary tract infection for which I will treat her with Macrobid since she has multiple allergies. 11/23/18 13:54 At this time patient wants to go home, vital signs are within normal limits, she is alert and oriented, and will treated for urinary tract infection. She is stable for discharge. - Vital Signs Vital signs: Temp Pulse Resp BP Pulse Ox 98.5 F 58 L 18 166/69 H 97 11/23/18 10:15 11/23/18 10:58 11/23/18 13:31 11/23/18 13:31 11/23/18 13:31 - Laboratory Result Diagrams: 11/23/18 10:15 11/23/18 12:40 Laboratory results interpreted by me: 11/23/18 11/23/18 11/23/18 10:15 10:25 12:40 Hgb 10.4 L Hct 32.3 L MCH 26.7 L RDW 15.0 H BUN 25 H Est GFR (Non-Af Amer) 51 L Glucose 73 L Total Protein 5.4 L Albumin 3.2 L Urine Protein 100 H Ur Leukocyte Esterase LARGE H Urine Ascorbic Acid 40 H Discharge - Discharge Clinical Impression: Weakness Urinary tract infection Qualifiers: Urinary tract infection type: acute cystitis Hematuria presence: without hematuria Qualified Code(s): N30.00 - Acute cystitis without hematuria Condition: Good Disposition: HOME, SELF-CARE Instructions: Urinary Tract Infection ([facility]), Nitrofurantoin ([facility]) Additional Instructions: Your urine shows findings consistent with a urinary tract infection. Please take all the antibiotics as directed even if your symptoms have improved. Please follow-up with your primary care physician as needed. Return to emergency room if you develop fever >101F, persistent vomiting, become lethargic, have severe pain in your sides, or any other symptoms that are gerardo rning to you. Prescriptions: Nitrofurantoin/Nitrofuran Mac [Macrobid 100 mg Capsule] 1 tab PO BID #6 capsule Referrals: RACHEL MEDRANO FNP [Primary Care Provider] - Follow up as needed
--- NOTE | 2018-11-23 11:42 | RADIOLOGY REPORT (SQ) ---
EXAM DESCRIPTION: CHEST SINGLE VIEW COMPLETED DATE/TIME: 11/23/2018 11:32 am REASON FOR STUDY: Weakness/dyspnea COMPARISON: 11/10/2018. NUMBER OF VIEWS: One view. TECHNIQUE: Single frontal radiographic view of the chest acquired. LIMITATIONS: None. FINDINGS: LUNGS AND PLEURA: No opacities, masses or pneumothorax. No pleural effusion. Attenuated bl ood vessels and flattened christiano-diaphragms. MEDIASTINUM AND HILAR STRUCTURES: No masses. Contour normal. HEART AND VASCULAR STRUCTURES: Heart normal in size. Normal vasculature. BONES: No acute findings. HARDWARE: None in the chest. OTHER: No other significant finding. IMPRESSION: COPD. NO ACUTE RADIOGRAPHIC FINDING IN THE CHEST. TECHNICAL DOCUMENTATION: JOB ID: [id number] [employer]- All Rights Reserved Reading location - IP/workstation name: [email or web address]
--- NOTE | 2018-11-23 12:26 | RADIOLOGY REPORT (SQ) ---
EXAM DESCRIPTION: CT HEAD WITHOUT COMPLETED DATE/TIME: 11/23/2018 12:12 pm REASON FOR STUDY: confusion COMPARISON: 02/05/2018 TECHNIQUE: Axial images acquired through the brain without intravenous contrast. Images reviewed wi th bone, brain and subdural windows. Images stored on PACS. All CT scanners at this facility use dose modulation, iterative reconstruction, and/or weight based d osing when appropriate to reduce radiation dose to as low as reasonably achievable (ALARA). [facility]: Dose Right [facility]: CareDose [facility]: Dose Right [facility]: Teradose 4D [facility]: Smart Intention Technology RADIATION DOSE: CT Rad equipment meets quality standard of care and radiation dose reduction techniq ues were employed. CTDIvol: 53.2 mGy. DLP: 1044 mGy-cm. mGy. LIMITATIONS: None. FINDINGS: VENTRICLES: Age-appropriate. CEREBRUM: No masses. No hemorrhage. No midline shift. Areas of low density in the white matter mos t likely due to chronic micro-vascular ischemic change. No evidence for acute infarction. CEREBELLUM: No masses. No hemorrhage. No alteration of density. No evidence for acute infarction. EXTRAAXIAL SPACES: Mild age-related involutional change. No fluid collections. No masses. ORBITS AND GLOBE: No intra- or extraconal masses. Normal contour of globe without masses. CALVARIUM: No fracture. PARANASAL SINUSES: No fluid or mucosal thickening. SOFT TISSUES: No mass or hematoma. OTHER: No other significant finding. IMPRESSION: No acute intracranial findings. EVIDENCE OF ACUTE STROKE: NO. TECHNICAL DOCUMENTATION: JOB ID: [id number] Quality ID # [id number]: Final reports with documentation of one or more dose reduction techniques (e.g., Au tomated exposure control, adjustment of the mA and/or kV according to patient size, use of iterative reconstruction technique) 2010 [employer]- All Rights Reserved Reading location - IP/workstation name: [email or web address]
[2018-11-23 12:53] LABS: ABSOLUTE BASOPHILS # (AUTO) 0.1 10^3/uL (0.0-0.2); ABSOLUTE LYMPHOCYTES (AUTO) 1.1 10^3/uL (0.5-4.7); ABSOLUTE MONOCYTES (AUTO) 0.3 10^3/uL (0.1-1.4); ABSOLUTE NEUT (AUTO) 4.3 10^3/uL (1.7-8.2); BASOPHILS % (AUTO) 0.9 % (0-2); EOSINOPHILS % (AUTO) 0.4 % (0-6); HEMATOCRIT 32.3 % (36.0-47.0); HEMOGLOBIN 10.4 g/dL (12.0-15.5); LYMPHOCYTES % (AUTO) 18.6 % (13-45); MEAN CORPUSCULAR HEMOGLOBIN 26.7 pg (27.0-33.4); MEAN CORPUSCULAR HGB CONC 32.3 g/dL (32.0-36.0); MEAN CORPUSCULAR VOLUME 83 fl (80-97); MONOCYTES % (AUTO) 5.2 % (3-13); PLATELET COUNT 246 10^3/uL (150-450); RED BLOOD COUNT 3.91 10^6/uL (3.72-5.28); SEGMENTED NEUTROPHILS % (AUTO) 74.9 % (42-78); TOTAL CELLS COUNTED % (AUTO) 100 %; WHITE BLOOD COUNT 5.7 10^3/uL (4.0-10.5)
[2018-11-23 12:57] LABS: INTERNATIONAL RATION (INR) 1.12; PROTHROMBIN TIME 14.9 SEC (11.4-15.4)
[2018-11-23 13:20] LABS: ALANINE AMINOTRANSFERASE 26 U/L (9-52); ALBUMIN 3.2 g/dL (3.5-5.0); ALKALINE PHOSPHATASE 49 U/L (38-126); ANION GAP 7 (5-19); ASPARTATE AMINO TRANSFERASE 17 U/L (14-36); BILIRUBIN,DIRECT 0.2 mg/dL (0.0-0.4); BILIRUBIN,TOTAL 0.3 mg/dL (0.2-1.3); BLOOD UREA NITROGEN 25 mg/dL (7-20); CALCIUM 9.2 mg/dL (8.4-10.2); CARBON DIOXIDE 30 mmol/L (22-30); CHLORIDE 103 mmol/L (98-107); GLUCOSE 73 mg/dL (75-110); POTASSIUM 4.3 mmol/L (3.6-5.0); TOTAL PROTEIN 5.4 g/dL (6.3-8.2)
[2018-11-23 14:50] VITALS: BP 160/93
--- NOTE | 2018-11-23 17:50 | EKG REPORT ---
SEVERITY:- ABNORMAL ECG - SINUS RHYTHM ATRIAL PREMATURE COMPLEX PROBABLE LVH WITH SECONDARY REPOL ABNRM : Confirmed by: Saurabh Monroe MD 23-Nov-2018 17:49:39
== END 2018-11-23 14:51 | disposition home or self-care (01) ==
LOC: ER 10:11
DX: N30.00 Acute cystitis without hematuria (principal); R53.1 Weakness; R51 Headache; R10.816 Epigastric abdominal tenderness; R41.0 Disorientation, unspecified; J44.9 Chronic obstructive pulmonary disease, unspecified; F17.200 Nicotine dependence, unspecified, uncomplicated; I25.10 Atherosclerotic heart disease of native coronary artery without angina pectoris; I48.91 Unspecified atrial fibrillation; Z79.01 Long term (current) use of anticoagulants; Z86.73 Personal history of transient ischemic attack (TIA), and cerebral infarction without residual deficits; Z88.8 Allergy status to other drugs, medicaments and biological substances; Z88.1 Allergy status to other antibiotic agents; Z88.0 Allergy status to penicillin; Z88.2 Allergy status to sulfonamides; Z88.5 Allergy status to narcotic agent; Z85.828 Personal history of other malignant neoplasm of skin; Z95.5 Presence of coronary angioplasty implant and graft
CPT/HCPCS: 36415; 70450; 71045; 80053; 81001; 82962; 83735; 84484; 85025; 85610; 93005; 93010; 99285

== ENCOUNTER → 2018-12-10 | Outpatient (CLI) | payer OTHER ==
--- NOTE | 2018-12-15 13:36 | RADIOLOGY REPORT (SQ) ---
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 TECHNIQUE: Post IV contrasted scanning from skull base through lung apices with review of bone, soft tissue and lung windows. Reconstructed coronal and sagittal MPR images reviewed. All images stored on PACS. All CT scanners at this facility use dose modulation, iterative reconstruction, and/or weight based d osing when appropriate to reduce radiation dose to as low as reasonably achievable (ALARA). [facility]: Dose Right [facility]: CareDose [facility]: Dose Right [facility]: Teradose 4D [facility]: Met[employer] CONTRAST TYPE AND DOSE: contrast/concentration: Isovue 350.00 mg/ml; Total Contrast Delivered: 75.0 ml; Total Saline Delivered: 55.0 ml RENAL FUNCTION: BUN 25 creatinine 1.04. RADIATION DOSE: . LIMITATIONS: None. FINDINGS: SKULL BASE: Intact. MAJOR SALIVARY GLANDS: No solid or cystic masses. No inflammatory changes. LYMPHADENOPATHY: No adenopathy. MUCOSAL MASSES OR ASYMMETRY: No mucosal masses or asymmetry. LARYNX/CORDS: Somewhat irregular appearance of the vocal cords. VASCULAR STRUCTURES: The major vessels are patent. LUNG APICES: Emphysematous changes. No other significant findings. BONES: Intact. Degenerative changes in the cervical spine. THYROID: Multiple thyroid nodules, unchanged. PARANASAL SINUSES: Clear. OTHER: No other significant finding. IMPRESSION: 1. SOMEWHAT IRREGULAR APPEARANCE OF THE VOCAL CORDS. THIS COULD BE DUE TO MOTION AT THE TIME OF IMAG ING OR COULD REPRESENT THE LESION SEEN ON ENDOSCOPY. NO EVIDENCE OF SIGNIFICANT LOCAL EXTENSION. NO ADENOPATHY. 2. MULTIPLE THYROID NODULES, UNCHANGED. EMPHYSEMATOUS CHANGES IN THE LUNG APICES. TECHNICAL DOCUMENTATION: JOB ID: [id number] Quality ID # [id number]: Final reports with documentation of one or more dose reduction techniques (e.g., Au tomated exposure control, adjustment of the mA and/or kV according to patient size, use of iterative reconstruction technique) 2010 [employer]- All Rights Reserved Reading location - IP/workstation name: [email or web address]
== END ==
LOC: RAD 12:21
PROVIDERS: ATTEND Otolaryngology
DX: J38.3 Other diseases of vocal cords (principal)
CPT/HCPCS: 70491

== ENCOUNTER 2019-02-02 11:25 | Emergency (ER) | payer OTHER ==
--- NOTE | 2019-02-02 11:35 | ER Document Report ---
ED General - General Stated Complaint: ABDOMINAL PAIN Time Seen by Provider: 02/02/19 11:31 Primary Care Provider: PADMINI CORNELIUS MD [Primary Care Provider] - Follow up as needed Notes: 83-year-old female presents with abdominal pain. She says "I am sick all over." She repeats this several times but then gestures to epigastrium. She is unable to give a further history. She is a history of chronic kidney disease and dementia. TRAVEL OUTSIDE OF THE [place] IN LAST 30 DAYS: No - Related Data Allergies/Adverse Reactions: prednisone [Prednisone] Allergy (Unknown, Verified 11/23/18 14:51) cephalexin [Cephalexin] Allergy (Verified 11/23/18 14:51) Cephalosporins Allergy (Verified 11/23/18 14:51) ciprofloxacin [From Cipro] Allergy (Verified 11/23/18 14:51) cortisone [Cortisone] Allergy (Verified 11/23/18 14:51) Penicillins Allergy (Verified 11/23/18 14:51) phenazopyridine [Phenazopyridine] Allergy (Verified 11/23/18 14:51) Sulfa (Sulfonamide Antibiotics) Allergy (Verified 11/23/18 14:51) sulfamethoxazole [From Bactrim] Allergy (Verified 11/23/18 14:51) tramadol HCl [From Ultram] Allergy (Verified 11/23/18 14:51) trimethoprim [From Bactrim] Allergy (Verified 11/23/18 14:51) Past Medical History - General Information source: Patient - Social History Smoking Status: Former Smoker Family History: CAD - Father, COPD - Brother, CVA - Mother, DM, Hypertension, Malignancy - 1 sister colon cancer and another sister lung cancer - Past Medical History Cardiac Medical History: Reports: Hx Atrial Fibrillation, Hx Coronary Artery Disease - Has had a couple of stents placed in her arteries., Hx Heart Attack - 10/2014, Hx Hypercholesterolemia, Hx Hypertension Pulmonary Medical History: Reports: Hx Asthma, Hx COPD, Hx Pneumonia Neurological Medical History: Reports: 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 Denies: Hx Peritoneal Dialysis Malignancy Medical History: Reports: Hx Skin Cancer GI Medical History: Reports: Hx Crohn's Disease, Hx Gastroesophageal Reflux Disease, Hx Hiatal Hernia, Hx Ulcer, Hx Ulcerative Colitis, Hx Colonoscopy Musculoskeletal Medical History: Reports Hx Arthritis Psychiatric Medical History: Reports: Hx Depression Past Surgical History: Reports: Hx Abdominal Surgery - hernia repair with mesh, Hx Cardiac Catheterization - with stents, Hx Cardiac Surgery - Stent, Hx Coronary Stent - x2, Hx Umbilical Hernia, Other - Skin cancer - Immunizations Hx Diphtheria, Pertussis, Tetanus Vaccination: Yes Hx Pneumococcal Vaccination: 07/08/11 Review of Systems - Review of Systems Notes: REVIEW OF SYSTEMS Not obtained: Uncooperative/dementia PHYSICAL EXAMINATION General: No acute distress, well-nourished Head: Atraumatic, normocephalic ENT: Mouth normal, oropharynx moist, no exudates or tonsillar enlargement Eyes: Conjunctiva normal, pupils equal, lids normal Neck: No JVD, supple, no guarding CVS: Normal rate, regular rhythm, no murmurs Resp: No resp distress, equal and normal breath sounds bilaterally GI: Soft, diffuse tenderness Ext: No deformities, no edema, normal range of motion in upper and lower ext Back: No CVA or midline TTP Skin: No rash, warm Lymphatic: No lymphadeopathy noted Neuro: Awake, alert. Face symmetric. GCS 15. Physical Exam - Vital signs Vitals: Resp Pulse Ox 25 H 93 02/02/19 11:41 02/02/19 11:41 Course - Re-evaluation Re-evalutation: 02/02/19 13:45 Resents with vague symptoms of generalized abdominal pain and malaise. Abdomen is mildly tender. Differential includes UTI diverticulitis or other abdominal process. Labs were donenormal. CT was doneno acute findings. She has ectasia of the aorta but no signs of dissection or aneurysm. Her urine - Vital Signs Vital signs: Temp Pulse Resp BP Pulse Ox 97.9 F 15 182/64 H 92 02/02/19 11:44 02/02/19 13:01 02/02/19 13:01 02/02/19 13:01 - Laboratory Result Diagrams: 02/02/19 11:29 02/02/19 11:29 Laboratory results interpreted by me: 02/02/19 02/02/19 02/02/19 11:29 11:29 11:29 Hgb 11.2 L Hct 34.4 L MCH 26.2 L RDW 15.7 H PT 15.9 H Carbon Dioxide 34 H Anion Gap 4 L BUN 23 H - Diagnostic Test Radiology reviewed: Image reviewed, Reports reviewed - EKG Interpretation by Me EKG shows normal: Sinus rhythm Rate: Normal Rhythm: NSR When compared to previous EKG there are: No significant change - Single PVC. Unchanged ST depression/T wave inversion suggestive of LVH Discharge - Discharge Clinical Impression: Generalized abdominal pain, Malaise Condition: Good Disposition: HOME, SELF-CARE Instructions: Abdominal Pain ([facility]) Referrals: PADMINI CORNELIUS MD [Primary Care Provider] - Follow up in 3-5 days
[2019-02-02 11:46] LABS: ABSOLUTE BASOPHILS # (AUTO) 0.1 10^3/uL (0.0-0.2); ABSOLUTE LYMPHOCYTES (AUTO) 1.1 10^3/uL (0.5-4.7); ABSOLUTE MONOCYTES (AUTO) 0.3 10^3/uL (0.1-1.4); ABSOLUTE NEUT (AUTO) 3.8 10^3/uL (1.7-8.2); BASOPHILS % (AUTO) 1.1 % (0-2); EOSINOPHILS % (AUTO) 0.8 % (0-6); HEMATOCRIT 34.4 % (36.0-47.0); HEMOGLOBIN 11.2 g/dL (12.0-15.5); LYMPHOCYTES % (AUTO) 21.1 % (13-45); MEAN CORPUSCULAR HEMOGLOBIN 26.2 pg (27.0-33.4); MEAN CORPUSCULAR HGB CONC 32.6 g/dL (32.0-36.0); MEAN CORPUSCULAR VOLUME 80 fl (80-97); MONOCYTES % (AUTO) 6.1 % (3-13); PLATELET COUNT 232 10^3/uL (150-450); RED BLOOD COUNT 4.28 10^6/uL (3.72-5.28); RED CELL DISTRIBUTION WIDTH 15.7 % (11.5-14.0); SEGMENTED NEUTROPHILS % (AUTO) 70.9 % (42-78); TOTAL CELLS COUNTED % (AUTO) 100 %; WHITE BLOOD COUNT 5.4 10^3/uL (4.0-10.5)
[2019-02-02 11:49] LABS: INTERNATIONAL RATION (INR) 1.26; PROTHROMBIN TIME 15.9 SEC (11.4-15.4)
[2019-02-02 12:05] LABS: BLOOD UREA NITROGEN 23 mg/dL (7-20); CALCIUM 9.3 mg/dL (8.4-10.2); GLUCOSE 91 mg/dL (75-110); POTASSIUM 4.5 mmol/L (3.6-5.0)
[2019-02-02 12:11] LABS: CARBON DIOXIDE 34 mmol/L (22-30); CHLORIDE 101 mmol/L (98-107)
[2019-02-02 12:23] LABS: ANION GAP 4 (5-19)
[2019-02-02 13:02] VITALS: BP 182/64
--- NOTE | 2019-02-02 13:41 | RADIOLOGY REPORT (SQ) ---
EXAM DESCRIPTION: CT ABD/PELVIS WITH IV ONLY COMPLETED DATE/TIME: 02/02/2019 1:21 pm REASON FOR STUDY: upper abd pain COMPARISON: 10/16/2018 TECHNIQUE: CT scan of the abdomen and pelvis performed using helical scanning technique with dynamic intravenous contrast injection. No oral contrast. Images reviewed with lung, soft tissue, and bone windows. Reconstructed coronal and sagittal MPR images reviewed. Delayed images for evaluation of the urinary system also acquired. All images stored on PACS. All CT scanners at this facility use dose modulation, iterative reconstruction, and/or weight based d osing when appropriate to reduce radiation dose to as low as reasonably achievable (ALARA). [facility]: Dose Right [facility]: CareDose [facility]: Dose Right [facility]: Teradose 4D [facility]: [employer] CONTRAST TYPE AND DOSE: contrast/concentration: Isovue 350.00 mg/ml; Total Contrast Delivered: 65.0 ml; Total Saline Delivered: 43.9 ml RENAL FUNCTION: BUN 23 creatinine 0.85 RADIATION DOSE: CT Rad equipment meets quality standard of care and radiation dose reduction techniq ues were employed. CTDIvol: 4.9 - 5.9 mGy. DLP: 536 mGy-cm.. LIMITATIONS: None. FINDINGS: LOWER CHEST: Cardiomegaly. LIVER: Normal size. No masses. No dilated ducts. SPLEEN: Normal size. No focal lesions. PANCREAS: No masses. No significant calcifications. No adjacent inflammation or peripancreatic fluid collections. Pancreatic duct not dilated. GALLBLADDER: No identified stones by CT criteria. No inflammatory changes to suggest cholecystitis. ADRENAL GLANDS: No significant masses or asymmetry. RIGHT KIDNEY AND URETER: No solid masses. No significant calcifications. No hydronephrosis or hyd roureter. LEFT KIDNEY AND URETER: No solid masses. No significant calcifications. No hydronephrosis or hydr oureter. AORTA AND VESSELS: There is mild ectasia of the infrarenal abdominal aorta. Atherosclerosis. RETROPERITONEUM: No retroperitoneal adenopathy, hemorrhage or masses. BOWEL AND PERITONEAL CAVITY: No masses or inflammatory changes. No free fluid or peritoneal masses. APPENDIX: Normal. PELVIS: No mass. No free fluid. Normal bladder. ABDOMINAL WALL: No masses. No hernias. BONES: No significant or acute findings. OTHER: No other significant finding. IMPRESSION: Cardiomegaly. Mild ectasia of the infrarenal abdominal aorta. No acute findings in the abdomen or pelvis. TECHNICAL DOCUMENTATION: JOB ID: [id number] Quality ID # [id number]: Final reports with documentation of one or more dose reduction techniques (e.g., Au tomated exposure control, adjustment of the mA and/or kV according to patient size, use of iterative reconstruction technique) 2010 [employer]- All Rights Reserved Reading location - IP/workstation name: [email or web address]
[2019-02-02 14:02] LABS: APPEARANCE,URINE CLEAR; BILIRUBIN,URINE NEGATIVE (NEGATIVE); COLOR,URINE YELLOW; GLUCOSE, URINE NEGATIVE (NEGATIVE); KETONES,URINE NEGATIVE (NEGATIVE); LEUKOCYTE ESTERASE,URINE NEGATIVE (NEGATIVE); NITRITE,URINE NEGATIVE (NEGATIVE); PROTEIN,URINE 30 mg/dL (NEGATIVE); URINE SPECIFIC GRAVITY 1.017; UROBILINOGEN,URINE NEGATIVE mg/dL (<2.0)
--- NOTE | 2019-02-02 14:48 | EKG REPORT ---
SEVERITY:- ABNORMAL ECG - ABNORMAL T, CONSIDER ISCHEMIA, LATERAL LEADS ECTOPIC ATRIAL RHYTHM : Confirmed by: Cathy Bacon MD 02-Feb-2019 14:48:22
== END 2019-02-02 14:43 | disposition home or self-care (01) ==
LOC: ER 11:25
DX: R10.84 Generalized abdominal pain (principal); R53.81 Other malaise; Z87.891 Personal history of nicotine dependence; I25.10 Atherosclerotic heart disease of native coronary artery without angina pectoris; I25.2 Old myocardial infarction; I10 Essential (primary) hypertension; J44.9 Chronic obstructive pulmonary disease, unspecified
CPT/HCPCS: 36415; 51701; 74177; 80048; 81001; 83690; 85025; 85610; 93005; 93010; 99284

== ENCOUNTER 2019-02-22 16:34 | Emergency (ER) | payer OTHER ==
--- NOTE | 2019-02-22 17:48 | ER Document Report ---
ED Medical Screen (RME) - General Chief Complaint: Rib Pain Stated Complaint: RIB PAIN Time Seen by Provider: 02/22/19 17:37 Primary Care Provider: PADMINI CORNELIUS MD [Primary Care Provider] - Follow up as needed Notes: Patient is a 83-year-old female with a history of COPD, stage III kidney disease, A. fib, DE and CVA presents to the emergency department with a chief complaint of chest pain. Patient states this morning she woke up and felt like her a fib was "fast." Patient states she can tell when her heart rate is elevated. Patient states she has started to develop left-sided chest pain that just hurts. Patient states it feels like an aching. Patient reports some shortness of breath. Patient reports intermittent productive cough. Patient does take Eliquis 5 mg daily for the A. fib. Patient states she is attempted to take Tylenol without relief. Patient denies nausea vomiting or diarrhea. Patient denies fever. TRAVEL OUTSIDE OF THE [place] IN LAST 30 DAYS: No - Related Data Allergies/Adverse Reactions: prednisone [Prednisone] Allergy (Unknown, Verified 02/22/19 16:35) cephalexin [Cephalexin] Allergy (Verified 02/22/19 16:35) Cephalosporins Allergy (Verified 02/22/19 16:35) ciprofloxacin [From Cipro] Allergy (Verified 02/22/19 16:35) cortisone [Cortisone] Allergy (Verified 02/22/19 16:35) Penicillins Allergy (Verified 02/22/19 16:35) phenazopyridine [Phenazopyridine] Allergy (Verified 02/22/19 16:35) Sulfa (Sulfonamide Antibiotics) Allergy (Verified 02/22/19 16:35) sulfamethoxazole [From Bactrim] Allergy (Verified 02/22/19 16:35) tramadol HCl [From Ultram] Allergy (Verified 02/22/19 16:35) trimethoprim [From Bactrim] Allergy (Verified 02/22/19 16:35) Past Medical History - Social History Chew tobacco use (# tins/day): No Frequency of alcohol use: None Drug Abuse: None - Past Medical History Cardiac Medical History: Reports: Hx Atrial Fibrillation, Hx Coronary Artery Disease - Has had a couple of stents placed in her arteries., Hx Heart Attack - 10/2014, Hx Hypercholesterolemia, Hx Hypertension Pulmonary Medical History: Reports: Hx Asthma, Hx COPD, Hx Pneumonia Neurological Medical History: Reports: 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 Denies: Hx Peritoneal Dialysis Malignancy Medical History: Reports: Hx Skin Cancer GI Medical History: Reports: Hx Crohn's Disease, Hx Gastroesophageal Reflux Disease, Hx Hiatal Hernia, Hx Ulcer, Hx Ulcerative Colitis, Hx Colonoscopy Musculoskeltal Medical History: Reports Hx Arthritis Psychiatric Medical History: Reports: Hx Depression Past Surgical History: Reports: Hx Abdominal Surgery - hernia repair with mesh, Hx Cardiac Catheterization - with stents, Hx Cardiac Surgery - Stent, Hx Coronary Stent - x2, Hx Umbilical Hernia, Other - Skin cancer - Immunizations Hx Diphtheria, Pertussis, Tetanus Vaccination: Yes History of Influenza Vaccine for 04/2017 - 09/2017 Season: Yes Influenza Administration Date for 04/2017 - 09/2017 Season: 04/07/17 Physical Exam - Vital signs Vitals: Temp Pulse Resp BP Pulse Ox 98.3 F 75 17 157/70 H 92 02/22/19 16:40 02/22/19 16:40 02/22/19 16:40 02/22/19 16:40 02/22/19 16:40 - Respiratory Respiratory status: No respiratory distress Chest status: Tender Breath sounds: Normal Chest palpation: Normal Notes: Left chest wall re-producible tenderness. Course - Re-evaluation Re-evalutation: 02/22/19 17:48 I have greeted and performed a rapid initial assessment of this patient. A comprehensive ED assessment and evaluation of the patient, analysis of test results and completion of the medical decision making process will be conducted by additional ED providers. - Vital Signs Vital signs: Temp Pulse Resp BP Pulse Ox 98.3 F 75 17 157/70 H 92 02/22/19 16:40 02/22/19 16:40 02/22/19 16:40 02/22/19 16:40 02/22/19 16:40 Doctor's Discharge - Discharge Referrals: PADMINI CORNELIUS MD [Primary Care Provider] - Follow up as needed
[2019-02-22 18:05] LABS: ABSOLUTE BASOPHILS # (AUTO) 0.1 10^3/uL (0.0-0.2); ABSOLUTE EOSINOPHILS # (AUTO) 0.1 10^3/uL (0.0-0.6); ABSOLUTE LYMPHOCYTES (AUTO) 1.4 10^3/uL (0.5-4.7); ABSOLUTE MONOCYTES (AUTO) 0.4 10^3/uL (0.1-1.4); ABSOLUTE NEUT (AUTO) 4.3 10^3/uL (1.7-8.2); BASOPHILS % (AUTO) 0.9 % (0-2); EOSINOPHILS % (AUTO) 0.9 % (0-6); HEMATOCRIT 35.3 % (36.0-47.0); HEMOGLOBIN 11.1 g/dL (12.0-15.5); LYMPHOCYTES % (AUTO) 22.4 % (13-45); MEAN CORPUSCULAR HEMOGLOBIN 25.8 pg (27.0-33.4); MEAN CORPUSCULAR HGB CONC 31.5 g/dL (32.0-36.0); MEAN CORPUSCULAR VOLUME 82 fl (80-97); MONOCYTES % (AUTO) 6.4 % (3-13); PLATELET COUNT 282 10^3/uL (150-450); RED BLOOD COUNT 4.33 10^6/uL (3.72-5.28); RED CELL DISTRIBUTION WIDTH 15.4 % (11.5-14.0); SEGMENTED NEUTROPHILS % (AUTO) 69.4 % (42-78); TOTAL CELLS COUNTED % (AUTO) 100 %; WHITE BLOOD COUNT 6.2 10^3/uL (4.0-10.5)
--- NOTE | 2019-02-22 18:12 | ER Document Report ---
ED General - General Chief Complaint: Rib Pain Stated Complaint: RIB PAIN Time Seen by Provider: 02/22/19 17:37 Primary Care Provider: PADMINI CORNELIUS MD [NO LOCAL MD] - Follow up as needed Notes: 83-year-old lady with CKD A. fib stroke on Eliquis as well as COPD still smoking daily presents with all over body pain rib pain shortness of breath and wet cough. Is been going on intermittently for weeks but today she said "I felt like my A. fib was fast." She denies fever and chills, denies leg swelling and says that she had a negative stress test in the last few months. TRAVEL OUTSIDE OF THE [place] IN LAST 30 DAYS: No - Related Data Allergies/Adverse Reactions: prednisone [Prednisone] Allergy (Unknown, Verified 02/22/19 16:35) cephalexin [Cephalexin] Allergy (Verified 02/22/19 16:35) Cephalosporins Allergy (Verified 02/22/19 16:35) ciprofloxacin [From Cipro] Allergy (Verified 02/22/19 16:35) cortisone [Cortisone] Allergy (Verified 02/22/19 16:35) Penicillins Allergy (Verified 02/22/19 16:35) phenazopyridine [Phenazopyridine] Allergy (Verified 02/22/19 16:35) Sulfa (Sulfonamide Antibiotics) Allergy (Verified 02/22/19 16:35) sulfamethoxazole [From Bactrim] Allergy (Verified 02/22/19 16:35) tramadol HCl [From Ultram] Allergy (Verified 02/22/19 16:35) trimethoprim [From Bactrim] Allergy (Verified 02/22/19 16:35) Past Medical History - Social History Smoking Status: Current Every Day Smoker Chew tobacco use (# tins/day): No Smoking Education Provided: Yes - The patient ED visit today was directly related to their abuse of tobacco. Frequency of alcohol use: None Drug Abuse: None Family History: CAD - Father, COPD - Brother, CVA - Mother, DM, Hypertension, Malignancy - 1 sister colon cancer and another sister lung cancer Patient has suicidal ideation: No Patient has homicidal ideation: No - Past Medical History Cardiac Medical History: Reports: Hx Atrial Fibrillation, Hx Coronary Artery Disease - Has had a couple of stents placed in her arteries., Hx Heart Attack - 10/2014, Hx Hypercholesterolemia, Hx Hypertension Pulmonary Medical History: Reports: Hx Asthma, Hx COPD, Hx Pneumonia Neurological Medical History: Reports: 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 Denies: Hx Peritoneal Dialysis Malignancy Medical History: Reports: Hx Skin Cancer GI Medical History: Reports: Hx Crohn's Disease, Hx Gastroesophageal Reflux Disease, Hx Hiatal Hernia, Hx Ulcer, Hx Ulcerative Colitis, Hx Colonoscopy Musculoskeletal Medical History: Reports Hx Arthritis Psychiatric Medical History: Reports: Hx Depression Past Surgical History: Reports: Hx Abdominal Surgery - hernia repair with mesh, Hx Cardiac Catheterization - with stents, Hx Cardiac Surgery - Stent, Hx Cowan ry Stent - x2, Hx Umbilical Hernia, Other - Skin cancer - Immunizations Hx Diphtheria, Pertussis, Tetanus Vaccination: Yes Hx Pneumococcal Vaccination: 07/08/11 Review of Systems - Review of Systems Notes: REVIEW OF SYSTEMS GEN: Denies fever, chills, weight loss ENT: Denies sore throat, nasal discharge, ear pain EYES: Denies blurry vision, eye pain, discharge CV: Has pain RESP: Shortness of breath GI: Denies abdominal pain, nausea, vomiting, diarrhea MSK: Joint and back pain SKIN: Denies rash, skin lesions LYMPH: Denies swollen glands/lymph nodes NEURO: Denies headache, focal weakness or numbness, dizziness PSYCH: Denies depression, suicidal or homicidal ideation PHYSICAL EXAMINATION General: No acute distress, well-nourished Head: Atraumatic, normocephalic ENT: Deep voice, raspy voice Eyes: Conjunctiva normal, pupils equal, lids normal Neck: No JVD, supple, no guarding CVS: Chest tenderness, irregular rhythm Resp: No resp distress, equal and normal breath sounds bilaterally GI: Nondistended, soft, no tenderness to palpation, no rebound or guarding Ext: No deformities, no edema, normal range of motion in upper and lower ext Back: No CVA or midline TTP Skin: No rash, warm Lymphatic: No lymphadeopathy noted Neuro: Awake, alert. Face symmetric. GCS 15. Physical Exam - Vital signs Vitals: Temp Pulse Resp BP Pulse Ox 98.3 F 75 17 157/70 H 92 02/22/19 16:40 02/22/19 16:40 02/22/19 16:40 02/22/19 16:40 02/22/19 16:40 Course - Re-evaluation Re-evalutation: 02/22/19 18:11 This is a heavy smoker with COPD CKD A. fib and history of 2 MIs who presents with body pain chest pain/tenderness shortness of breath and cough. I suspect COPD flare and arthritis but I will check a troponin, her pain is been present greater than 6 hours with single troponin will rule out DC and she had a recent negative stress test. We will also check chest x-ray to look for pneumonia. 02/23/19 02:16 Patient stroke was negative for chest x-ray does not show pneumonia. Her vital signs remained stable. She did get a DuoNeb. She felt slightly better after this. She is now complaining mostly of musculoskeletal and arthritis pain. I let her know that this can be dealt with by primary care. She and her family were understanding of this and she was discharged in stable condition. I have discussed with the patient there likely diagnosis, aftercare plan, follow-up plans and my usual and customary return precautions. They verbalized understanding of this. - Vital Signs Vital signs: Temp Pulse Resp BP Pulse Ox 98.3 F 75 19 192/86 H 98 02/22/19 16:40 02/22/19 16:40 02/22/19 20:00 02/22/19 19:55 02/22/19 19:55 - Laboratory Result Diagrams: 02/22/19 17:49 02/22/19 17:49 Laboratory results interpreted by me: 02/22/19 02/22/19 17:49 17:49 Hgb 11.1 L Hct 35.3 L MCH 25.8 L MCHC 31.5 L RDW 15.4 H Carbon Dioxide 33 H Anion Gap 4 L BUN 29 H Est GFR (Non-Af Amer) 52 L Total Protein 6.1 L - Diagnostic Test Radiology reviewed: Image reviewed, Reports reviewed Discharge - Discharge Clinical Impression: Atypical chest pain Condition: Good Disposition: HOME, SELF-CARE Instructions: Chronic Obstructive Lung Disease ([facility]), Chest Pain of Unclear Cause ([facility]) Referrals: PADMINI CORNELIUS MD [NO LOCAL MD] - Follow up as needed
[2019-02-22] MEDS ORDERED: IPRATROPIUM/ALBUTEROL 0.5-2.5 MG/3 ML AMPUL NEB ONE (18:13)
--- NOTE | 2019-02-22 18:19 | RADIOLOGY REPORT (SQ) ---
EXAM DESCRIPTION: CHEST 2 VIEWS COMPLETED DATE/TIME: 02/22/2019 6:05 pm REASON FOR STUDY: chest pain, sob COMPARISON: Chest radiographs 11/23/2018 EXAM PARAMETERS: NUMBER OF VIEWS: two views TECHNIQUE: Digital Frontal and Lateral radiographic views of the chest acquired. RADIATION DOSE: NA LIMITATIONS: none FINDINGS: LUNGS AND PLEURA: No opacities, masses or pneumothorax. Mild blunting of the bilateral co stophrenic angles. COPD changes. MEDIASTINUM AND HILAR STRUCTURES: No masses or contour abnormalities. HEART AND VASCULAR STRUCTURES: Heart normal size. No evidence for failure. Calcified atheroscleroti c changes of a tortuous thoracic aorta. BONES: No acute findings. HARDWARE: None in the chest. OTHER: No other significant finding. IMPRESSION: Possible small bilateral pleural effusions. COPD changes. TECHNICAL DOCUMENTATION: JOB ID: [id number] [employer]- All Rights Reserved Reading location - IP/workstation name: [email or web address]
[2019-02-22 18:20] LABS: ALKALINE PHOSPHATASE 60 U/L (38-126); ASPARTATE AMINO TRANSFERASE 23 U/L (14-36); BILIRUBIN,DIRECT 0.2 mg/dL (0.0-0.4); BILIRUBIN,TOTAL 0.3 mg/dL (0.2-1.3); BLOOD UREA NITROGEN 29 mg/dL (7-20); CALCIUM 9.4 mg/dL (8.4-10.2); GLUCOSE 103 mg/dL (75-110); POTASSIUM 4.6 mmol/L (3.6-5.0); TOTAL PROTEIN 6.1 g/dL (6.3-8.2)
[2019-02-22 18:25] LABS: ANION GAP 4 (5-19); CARBON DIOXIDE 33 mmol/L (22-30); CHLORIDE 100 mmol/L (98-107)
[2019-02-22 20:06] VITALS: BP 192/86
--- NOTE | 2019-02-23 00:34 | EKG REPORT ---
SEVERITY:- ABNORMAL ECG - SINUS RHYTHM NONSPECIFIC INTRAVENTRICULAR CONDUCTION DELAY : Confirmed by: Eunice Servin 23-Feb-2019 00:33:43
--- NOTE | 2019-02-23 00:34 | EKG REPORT ---
SEVERITY:- ABNORMAL ECG - SINUS RHYTHM PROBABLE LEFT VENTRICULAR HYPERTROPHY : Confirmed by: Eunice Servin 23-Feb-2019 00:34:01
--- NOTE | 2019-02-23 00:35 | EKG REPORT ---
SEVERITY:- ABNORMAL ECG - SINUS ARRHYTHMIA, RATE 62-90 PROBABLE LEFT VENTRICULAR HYPERTROPHY ARTIFACTS NOTED : Confirmed by: Eunice Servin 23-Feb-2019 00:34:42
== END 2019-02-22 20:06 | disposition home or self-care (01) ==
LOC: ER 16:34
DX: R07.89 Other chest pain (principal); R07.81 Pleurodynia; M79.10 Myalgia, unspecified site; I48.91 Unspecified atrial fibrillation; I12.9 Hypertensive chronic kidney disease with stage 1 through stage 4 chronic kidney disease, or unspecified chronic kidney disease; N18.9 Chronic kidney disease, unspecified; Z79.01 Long term (current) use of anticoagulants; F17.200 Nicotine dependence, unspecified, uncomplicated; J44.9 Chronic obstructive pulmonary disease, unspecified; I25.2 Old myocardial infarction
CPT/HCPCS: 93005 ×2; 94640; 99284; 36415; 85025; 80053; 84484; 71046; 93010; A9270; J7620

== ENCOUNTER 2019-03-14 17:02 | Emergency (ER) | payer OTHER ==
--- NOTE | 2019-03-14 17:17 | ER Document Report ---
ED Medical Screen (RME) - General Chief Complaint: Foot Injury Stated Complaint: RIGHT FOOT HURT Time Seen by Provider: 03/14/19 17:15 Primary Care Provider: RACHEL MEDRANO FNP [Primary Care Provider] - Follow up as needed Mode of Arrival: Medic Information source: Patient Notes: 3-year-old female presented to ED for injury to her foot. She states the O2 tank fell on her foot to the middle of this morning while she was trying to clean up for the cane. She states she was just trying to clean up and O2 fell over and hit her foot. She states her pain is a 5 out of 5. States this bandage is hurting her foot. Patient did come by EMS. I have greeted and performed a rapid initial assessment of this patient. A comprehensive ED assessment and evaluation of the patient, analysis of test results and completion of medical decision making process will be conducted by an additional ED providers. TRAVEL OUTSIDE OF THE [place] IN LAST 30 DAYS: No - Related Data Allergies/Adverse Reactions: prednisone [Prednisone] Allergy (Unknown, Verified 02/22/19 16:35) cephalexin [Cephalexin] Allergy (Verified 02/22/19 16:35) Cephalosporins Allergy (Verified 02/22/19 16:35) ciprofloxacin [From Cipro] Allergy (Verified 02/22/19 16:35) cortisone [Cortisone] Allergy (Verified 02/22/19 16:35) Penicillins Allergy (Verified 02/22/19 16:35) phenazopyridine [Phenazopyridine] Allergy (Verified 02/22/19 16:35) Sulfa (Sulfonamide Antibiotics) Allergy (Verified 02/22/19 16:35) sulfamethoxazole [From Bactrim] Allergy (Verified 02/22/19 16:35) tramadol HCl [From Ultram] Allergy (Verified 02/22/19 16:35) trimethoprim [From Bactrim] Allergy (Verified 02/22/19 16:35) Past Medical History - Past Medical History Cardiac Medical History: Reports: Hx Atrial Fibrillation, Hx Coronary Artery Disease - Has had a couple of stents placed in her arteries., Hx Heart Attack - 10/2014, Hx Hypercholesterolemia, Hx Hypertension Pulmonary Medical History: Reports: Hx Asthma, Hx COPD, Hx Pneumonia Neurological Medical History: Reports: 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 Denies: Hx Peritoneal Dialysis Malignancy Medical History: Reports: Hx Skin Cancer GI Medical History: Reports: Hx Crohn's Disease, Hx Gastroesophageal Reflux Disease, Hx Hiatal Hernia, Hx Ulcer, Hx Ulcerative Colitis, Hx Colonoscopy Musculoskeltal Medical History: Reports Hx Arthritis Psychiatric Medical History: Reports: Hx Depression Past Surgical History: Reports: Hx Abdominal Surgery - hernia repair with mesh, Hx Cardiac Catheterization - with stents, Hx Cardiac Surgery - Stent, Hx Coronary Stent - x2, Hx Umbilical Hernia, Other - Skin cancer - Immunizations Hx Diphtheria, Pertussis, Tetanus Vaccination: Yes History of Influenza Vaccine for 04/2017 - 09/2017 Season: Yes Influenza Administration Date for 04/2017 - 09/2017 Season: 04/07/17 Physical Exam - Vital signs Vitals: Temp Pulse Resp BP Pulse Ox 97.7 F 70 20 204/60 H 87 L 03/14/19 17:10 03/14/19 17:10 03/14/19 17:10 03/14/19 17:10 03/14/19 17:10 Course - Vital Signs Vital signs: Temp Pulse Resp BP Pulse Ox 97.7 F 70 20 204/60 H 87 L 03/14/19 17:10 03/14/19 17:10 03/14/19 17:10 03/14/19 17:10 03/14/19 17:10 Doctor's Discharge - Discharge Referrals: RACHEL MEDRANO FNP [Primary Care Provider] - Follow up as needed
[2019-03-14] MEDS ORDERED: ACETAMINOPHEN 325 MG TABLET PO ONE (17:18)
--- NOTE | 2019-03-14 18:15 | RADIOLOGY REPORT (SQ) ---
EXAM DESCRIPTION: FOOT RIGHT COMPLETE; ANKLE RIGHT COMPLETE COMPLETED DATE/TIME: 03/14/2019 6:02 pm REASON FOR STUDY: Injury, pain, swelling, bruising to R ankle/foot COMPARISON: None. NUMBER OF VIEWS: Three views. TECHNIQUE: AP, lateral and oblique radiographic images acquired of the right foot and ankle. LIMITATIONS: None. FINDINGS: MINERALIZATION: Osteopenia. BONES: No acute fracture or dislocation. There is an osteochondral lesion of the medial talar dome. JOINTS: No effusions. SOFT TISSUES: Soft tissue swelling over the lateral ankle. OTHER: No other significant finding. IMPRESSION: 1. No acute fracture or dislocation of the right foot or ankle. Osteopenia. 2. There is an osteochondral lesion of the medial talar dome, consistent with prior trauma. 3. Soft tissue swelling over the lateral ankle. TECHNICAL DOCUMENTATION: JOB ID: [id number] [employer]- All Rights Reserved Reading location - IP/workstation name: [email or web address]
--- NOTE | 2019-03-14 18:15 | RADIOLOGY REPORT (SQ) ---
EXAM DESCRIPTION: FOOT RIGHT COMPLETE; ANKLE RIGHT COMPLETE COMPLETED DATE/TIME: 03/14/2019 6:02 pm REASON FOR STUDY: Injury, pain, swelling, bruising to R ankle/foot COMPARISON: None. NUMBER OF VIEWS: Three views. TECHNIQUE: AP, lateral and oblique radiographic images acquired of the right foot and ankle. LIMITATIONS: None. FINDINGS: MINERALIZATION: Osteopenia. BONES: No acute fracture or dislocation. There is an osteochondral lesion of the medial talar dome. JOINTS: No effusions. SOFT TISSUES: Soft tissue swelling over the lateral ankle. OTHER: No other significant finding. IMPRESSION: 1. No acute fracture or dislocation of the right foot or ankle. Osteopenia. 2. There is an osteochondral lesion of the medial talar dome, consistent with prior trauma. 3. Soft tissue swelling over the lateral ankle. TECHNICAL DOCUMENTATION: JOB ID: [id number] [employer]- All Rights Reserved Reading location - IP/workstation name: [email or web address]
[2019-03-14] MEDS ORDERED: HYDROCODONE/ACETAMINOPHEN 5-325 MG TABLET PO ONE (19:09)
--- NOTE | 2019-03-14 21:04 | ER Document Report ---
ED Extremity Problem, Lower - General Chief Complaint: Foot Injury Stated Complaint: RIGHT FOOT HURT Time Seen by Provider: 03/14/19 17:15 Primary Care Provider: RACHEL MEDRANO FNP [Primary Care Provider] - Follow up as needed Mode of Arrival: Medic TRAVEL OUTSIDE OF THE [place] IN LAST 30 DAYS: No - HPI Patient complains to provider of: Injury, Pain, Swelling Location: Ankle, Foot Occurred: Just prior to arrival Where: Home Onset/Duration: Sudden Quality of pain: Achy, Dull Severity: Mild Pain Level: 2 Recent injury: Yes Associated symptoms: denies: Chest pain, Chills, Dizzy, Fainting, Fever, [place] a crack, [place] a pop, Hurts to breath, Painful ambulation, Rapid heart rate, Seizure, Short of breath, Sweaty, Unable to bear weight, Weak, Other Exacerbated by: denies: Nothing, Hanging down, Walking, Other Relieved by: Nothing Notes: Patient is a 83-year-old with chief complaint of foot and ankle pain. Patient was changing her oxygen tank as she has COPD and dropped that on her lateral malleolus and the top of her foot with swelling and pain she denies any other complaints - Related Data Allergies/Adverse Reactions: prednisone [Prednisone] Allergy (Unknown, Verified 02/22/19 16:35) cephalexin [Cephalexin] Allergy (Verified 02/22/19 16:35) Cephalosporins Allergy (Verified 02/22/19 16:35) ciprofloxacin [From Cipro] Allergy (Verified 02/22/19 16:35) cortisone [Cortisone] Allergy (Verified 02/22/19 16:35) Penicillins Allergy (Verified 02/22/19 16:35) phenazopyridine [Phenazopyridine] Allergy (Verified 02/22/19 16:35) Sulfa (Sulfonamide Antibiotics) Allergy (Verified 02/22/19 16:35) sulfamethoxazole [From Bactrim] Allergy (Verified 02/22/19 16:35) tramadol HCl [From Ultram] Allergy (Verified 02/22/19 16:35) trimethoprim [From Bactrim] Allergy (Verified 02/22/19 16:35) Past Medical History - General Information source: Patient - Social History Smoking Status: Former Smoker Frequency of alcohol use: None Drug Abuse: None Family History: CAD - Father, COPD - Brother, CVA - Mother, DM, Hypertension, Malignancy - 1 sister colon cancer and another sister lung cancer Patient has suicidal ideation: No Patient has homicidal ideation: No - Past Medical History Cardiac Medical History: Reports: Hx Atrial Fibrillation, Hx Coronary Artery Disease - Has had a couple of stents placed in her arteries., Hx Heart Attack - 10/2014, Hx Hypercholesterolemia, Hx Hypertension Pulmonary Medical History: Reports: Hx Asthma, Hx COPD, Hx Pneumonia Neurological Medical History: Reports: 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 Denies: Hx Peritoneal Dialysis Malignancy Medical History: Reports: Hx Skin Cancer GI Medical History: Reports: Hx Crohn's Disease, Hx Gastroesophageal Reflux Disease, Hx Hiatal Hernia, Hx Ulcer, Hx Ulcerative Colitis, Hx Colonoscopy Musculoskeletal Medical History: Reports Hx Arthritis Psychiatric Medical History: Reports: Hx Depression Past Surgical History: Reports: Hx Abdominal Surgery - hernia repair with mesh, Hx Cardiac Catheterization - with stents, Hx Cardiac Surgery - Stent, Hx Coronary Stent - x2, Hx Umbilical Hernia, Other - Skin cancer - Immunizations Hx Diphtheria, Pertussis, Tetanus Vaccination: Yes Hx Pneumococcal Vaccination: 07/08/11 Review of Systems - Review of Systems Constitutional: No symptoms reported EENT: No symptoms reported Cardiovascular: No symptoms reported Respiratory: No symptoms reported Gastrointestinal: No symptoms reported Musculoskeletal: Joint pain, Muscle pain, Ankle swelling Neurological/Psychological: No symptoms reported -: Yes All other systems reviewed and negative Physical Exam - Vital signs Vitals: Temp Pulse Resp BP Pulse Ox 97.7 F 70 20 204/60 H 87 L 03/14/19 17:10 03/14/19 17:10 03/14/19 17:10 03/14/19 17:10 03/14/19 17:10 Notes: PHYSICAL EXAMINATION: GENERAL: Well-appearing, well-nourished and in no acute distress. HEAD: Atraumatic, normocephalic. EYES: Pupils equal round and reactive to light, extraocular movements intact, sclera anicteric, conjunctiva are normal. ENT: nares patent, oropharynx clear without exudates. Moist mucous membranes. NECK: Normal range of motion, supple without lymphadenopathy LUNGS: Breath sounds clear to auscultation bilaterally and equal. No wheezes rales or rhonchi. HEART: Regular rate and rhythm without murmurs ABDOMEN: Soft, nontender, normoactive bowel sounds. No guarding, no rebound. No masses appreciated. EXTREMITIES: Swelling to the right dorsum of the foot and right ankle area with some ecchymosis but full range of motion. NEUROLOGICAL: No focal neurological deficits. Moves all extremities spontaneously and on command. PSYCH: Normal mood, normal affect. SKIN: Warm, Dry, normal turgor, no rashes or lesions noted. Course - Vital Signs Vital signs: Temp Pulse Resp BP Pulse Ox 97.7 F 70 20 204/60 H 87 L 03/14/19 17:10 03/14/19 17:10 03/14/19 17:10 03/14/19 17:10 03/14/19 17:10 - Diagnostic Test Radiology reviewed: Image reviewed, Reports reviewed Discharge - Discharge Clinical Impression: Foot sprain, Ankle sprain Condition: Good Disposition: HOME, SELF-CARE Additional Instructions: Towel for 20 minutes 3 times a day return if worse if pain persists follow-up with orthopedics Prescriptions: Hydrocodone/Acetaminophen [Elizabeth 5-325 mg Tabs (6 Tab/ER Disp)] 0.5 tab PO Q6 PRN #6 dspk PRN Reason: Pain Scale Of 4 Referrals: RACHEL MEDRANO FNP [Primary Care Provider] - Follow up as needed
[2019-03-14 21:17] VITALS: BP 159/71
== END 2019-03-14 21:19 | disposition home or self-care (01) ==
LOC: ER 17:02
DX: S93.609A Unspecified sprain of unspecified foot, initial encounter (principal); S93.409A Sprain of unspecified ligament of unspecified ankle, initial encounter; W22.8XXA Striking against or struck by other objects, initial encounter; Y93.89 Activity, other specified; Y92.009 Unspecified place in unspecified non-institutional (private) residence as the place of occurrence of the external cause; I25.10 Atherosclerotic heart disease of native coronary artery without angina pectoris; I10 Essential (primary) hypertension; J44.9 Chronic obstructive pulmonary disease, unspecified; Z99.81 Dependence on supplemental oxygen; Z88.1 Allergy status to other antibiotic agents; Z88.8 Allergy status to other drugs, medicaments and biological substances; Z88.0 Allergy status to penicillin; Z88.2 Allergy status to sulfonamides; Z88.5 Allergy status to narcotic agent; Z87.891 Personal history of nicotine dependence
CPT/HCPCS: 99283; 73610; 73630; A9270 ×2

== ENCOUNTER 2019-04-10 16:50 | Inpatient (IN) | payer OTHER, MEDICARE ==
[2019-04-10] MEDS ORDERED: FENTANYL CITRATE INJ/PF 100 MCG/2 ML AMPUL IV ONE (17:31)
[2019-04-10] MEDS ORDERED: ONDANSETRON HCL INJ/PF 4 MG/2 ML SDV IV ONE (17:32)
[2019-04-10] MEDS ORDERED: IPRATROPIUM/ALBUTEROL 0.5-2.5 MG/3 ML AMPUL NEB ONE (17:35)
--- NOTE | 2019-04-10 17:35 | ER Document Report ---
ED Medical Screen (RME) - General Chief Complaint: Abdominal Pain Stated Complaint: DIFFICULTY BREATHING Time Seen by Provider: 04/10/19 17:21 Primary Care Provider: RACHEL MEDRANO FNP [Primary Care Provider] - Follow up as needed Mode of Arrival: Wheelchair Information source: Patient, Relative - Daughter Notes: Patient is an 83-year-old female sent from her primary care provider's office with concerns for abdominal pain, diarrhea, cough shortness of breath. Patient does have a history of COPD and wears oxygen at home at night only. Patient's primary care provider called and stated her oxygen saturation in the office was 83%. Patient reports chronic abdominal pain but worsening significantly over the last week. Exam: Generalized abdominal tenderness with palpation. Faint expiratory wheezes noted bilaterally. Mildly increased work of breathing noted. I have greeted and performed a rapid initial assessment of this patient. A comprehensive ED assessment and evaluation of the patient, analysis of test results and completion of the medical decision making process will be conducted by additional ED providers. I have specifically instructed the patient or family members with the patient to immediately return to any nursing staff should anything change in the patient's condition or with their chief complaint. This medical record was dictated with voice recognizing software. There may be grammatical, syntax errors that are unintended. TRAVEL OUTSIDE OF THE [place] IN LAST 30 DAYS: No - Related Data Allergies/Adverse Reactions: prednisone [Prednisone] Allergy (Unknown, Verified 04/10/19 17:23) cephalexin [Cephalexin] Allergy (Verified 04/10/19 17:23) Cephalosporins Allergy (Verified 04/10/19 17:23) ciprofloxacin [From Cipro] Allergy (Verified 04/10/19 17:23) cortisone [Cortisone] Allergy (Verified 04/10/19 17:23) Penicillins Allergy (Verified 04/10/19 17:23) phenazopyridine [Phenazopyridine] Allergy (Verified 04/10/19 17:23) Sulfa (Sulfonamide Antibiotics) Allergy (Verified 04/10/19 17:23) sulfamethoxazole [From Bactrim] Allergy (Verified 04/10/19 17:23) tramadol HCl [From Ultram] Allergy (Verified 04/10/19 17:23) trimethoprim [From Bactrim] Allergy (Verified 04/10/19 17:23) Past Medical History - Social History Chew tobacco use (# tins/day): No Frequency of alcohol use: None Drug Abuse: None - Past Medical History Cardiac Medical History: Reports: Hx Atrial Fibrillation, Hx Coronary Artery Disease - Has had a couple of stents placed in her arteries., Hx Heart Attack - 10/2014, Hx Hypercholesterolemia, Hx Hypertension Pulmonary Medical History: Reports: Hx Asthma, Hx COPD, Hx Pneumonia Neurological Medical History: Reports: 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 Denies: Hx Peritoneal Dialysis Malignancy Medical History: Reports: Hx Skin Cancer GI Medical History: Reports: Hx Crohn's Disease, Hx Gastroesophageal Reflux Disease, Hx Hiatal Hernia, Hx Ulcer, Hx Ulcerative Colitis, Hx Colonoscopy Musculoskeltal Medical History: Reports Hx Arthritis Psychiatric Medical History: Reports: Hx Depression Past Surgical History: Reports: Hx Abdominal Surgery - hernia repair with mesh, Hx Cardiac Catheterization - with stents, Hx Cardiac Surgery - Stent, Hx Coronary Stent - x2, Hx Umbilical Hernia, Other - Skin cancer - Immunizations Hx Diphtheria, Pertussis, Tetanus Vaccination: Yes Physical Exam - Vital signs Vitals: Temp Pulse Resp BP Pulse Ox 98.0 F 69 18 161/62 H 97 04/10/19 17:05 04/10/19 17:05 04/10/19 17:05 04/10/19 17:05 04/10/19 17:05 Course - Vital Signs Vital signs: Temp Pulse Resp BP Pulse Ox 98.0 F 69 18 161/62 H 97 04/10/19 17:05 04/10/19 17:05 04/10/19 17:05 04/10/19 17:05 04/10/19 17:05 Doctor's Discharge - Discharge Referrals: RACHEL MEDRANO FNP [Primary Care Provider] - Follow up as needed
--- NOTE | 2019-04-10 18:31 | RADIOLOGY REPORT (SQ) ---
EXAM DESCRIPTION: CHEST 2 VIEWS COMPLETED DATE/TIME: 04/10/2019 6:01 pm REASON FOR STUDY: shortness of breath COMPARISON: Two-view chest 02/22/2019 AP chest 11/23/2018 EXAM PARAMETERS: NUMBER OF VIEWS: two views TECHNIQUE: Digital Frontal and Lateral radiographic views of the chest acquired. RADIATION DOSE: NA LIMITATIONS: none FINDINGS: LUNGS AND PLEURA: Trace bilateral pleural effusions. Few Jacki lines at both lung bases. Findings suggest mild fluid overload or congestive failure. No alveolar edema. No pneumothorax. No dense consolidation worrisome for acute pneumonia MEDIASTINUM AND HILAR STRUCTURES: No masses or contour abnormalities. HEART AND VASCULAR STRUCTURES: Marked cardiomegaly. BONES: No acute findings. HARDWARE: None in the chest. OTHER: No other significant finding. IMPRESSION: Marked cardiomegaly, trace bilateral pleural effusions with Jacki lines worrisome for m ild congestive failure TECHNICAL DOCUMENTATION: JOB ID: [id number] [employer]- All Rights Reserved Reading location - IP/workstation name: [email or web address]
[2019-04-10 19:00] LABS: ABSOLUTE BASOPHILS # (AUTO) 0.1 10^3/uL (0.0-0.2); ABSOLUTE EOSINOPHILS # (AUTO) 0.1 10^3/uL (0.0-0.6); MEAN CORPUSCULAR HEMOGLOBIN 23.9 pg (27.0-33.4); MEAN CORPUSCULAR HGB CONC 30.7 g/dL (32.0-36.0); MEAN CORPUSCULAR VOLUME 78 fl (80-97); MONOCYTES % (AUTO) 7.3 % (3-13); PLATELET COUNT 225 10^3/uL (150-450); TOTAL CELLS COUNTED % (AUTO) 100 %
[2019-04-10 19:16] LABS: ABSOLUTE MONOCYTES (AUTO) 0.4 10^3/uL (0.1-1.4); ABSOLUTE NEUT (AUTO) 4.4 10^3/uL (1.7-8.2); EOSINOPHILS % (AUTO) 1.4 % (0-6); HEMATOCRIT 33.2 % (36.0-47.0); HEMOGLOBIN 10.2 g/dL (12.0-15.5); RED BLOOD COUNT 4.26 10^6/uL (3.72-5.28); RED CELL DISTRIBUTION WIDTH 15.4 % (11.5-14.0); SEGMENTED NEUTROPHILS % (AUTO) 73.3 % (42-78); WHITE BLOOD COUNT 6.1 10^3/uL (4.0-10.5)
[2019-04-10 19:22] LABS: ALBUMIN 3.6 g/dL (3.5-5.0); ALKALINE PHOSPHATASE 54 U/L (38-126); ANION GAP 5 (5-19); ASPARTATE AMINO TRANSFERASE 21 U/L (14-36); BILIRUBIN,DIRECT 0.1 mg/dL (0.0-0.4); BILIRUBIN,TOTAL 0.4 mg/dL (0.2-1.3); BLOOD UREA NITROGEN 29 mg/dL (7-20); CALCIUM 9.1 mg/dL (8.4-10.2); CARBON DIOXIDE 35 mmol/L (22-30); CHLORIDE 100 mmol/L (98-107); GLUCOSE 101 mg/dL (75-110); POTASSIUM 4.1 mmol/L (3.6-5.0)
--- NOTE | 2019-04-10 20:42 | ER Document Report ---
ED General - General Chief Complaint: Abdominal Pain Stated Complaint: DIFFICULTY BREATHING Time Seen by Provider: 04/10/19 17:21 Primary Care Provider: RACHEL MEDRANO FNP [Primary Care Provider] - Follow up as needed Mode of Arrival: Wheelchair TRAVEL OUTSIDE OF THE [place] IN LAST 30 DAYS: No - HPI Notes: This is an 83 year old female with a history of Crohn's disease who presents today with a complaint of LLQ pain for the past few days intermittently. Pt states that she has had intermittent episodes of diarrhea over the past 2 weeks. She denies any bloody stools. >she denies any recent antibiotic use., She denies any vomiting., She describes her pain as mild now, and does not want pain meds at this time. NO urinary symptoms. Patient also complains of some shortness of breath. She denies any cough or congestion. Shortness of breath is worse with exertion. She denies any chest pain. - Related Data Allergies/Adverse Reactions: prednisone [Prednisone] Allergy (Unknown, Verified 04/10/19 17:23) cephalexin [Cephalexin] Allergy (Verified 04/10/19 17:23) Cephalosporins Allergy (Verified 04/10/19 17:23) ciprofloxacin [From Cipro] Allergy (Verified 04/10/19 17:23) cortisone [Cortisone] Allergy (Verified 04/10/19 17:23) Penicillins Allergy (Verified 04/10/19 17:23) phenazopyridine [Phenazopyridine] Allergy (Verified 04/10/19 17:23) Sulfa (Sulfonamide Antibiotics) Allergy (Verified 04/10/19 17:23) sulfamethoxazole [From Bactrim] Allergy (Verified 04/10/19 17:23) tramadol HCl [From Ultram] Allergy (Verified 04/10/19 17:23) trimethoprim [From Bactrim] Allergy (Verified 04/10/19 17:23) Past Medical History - General Information source: Patient, Relative - Daughter - Social History Smoking Status: Current Every Day Smoker Chew tobacco use (# tins/day): No Frequency of alcohol use: None Drug Abuse: None Family History: CAD - Father, COPD - Brother, CVA - Mother, DM, Hypertension, Malignancy - 1 sister colon cancer and another sister lung cancer Patient has suicidal ideation: No Patient has homicidal ideation: No - Past Medical History Cardiac Medical History: Reports: Hx Atrial Fibrillation, Hx Coronary Artery Disease - Has had a couple of stents placed in her arteries., Hx Heart Attack - 10/2014, Hx Hypercholesterolemia, Hx Hypertension Pulmonary Medical History: Reports: Hx Asthma, Hx COPD, Hx Pneumonia Neurological Medical History: Reports: 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 Denies: Hx Peritoneal Dialysis Malignancy Medical History: Reports: Hx Skin Cancer GI Medical History: Reports: Hx Crohn's Disease, Hx Gastroesophageal Reflux Disease, Hx Hiatal Hernia, Hx Ulcer, Hx Ulcerative Colitis, Hx Colonoscopy Musculoskeletal Medical History: Reports Hx Arthritis Psychiatric Medical History: Reports: Hx Depression Past Surgical History: Reports: Hx Abdominal Surgery - hernia repair with mesh, Hx Cardiac Catheterization - with stents, Hx Cardiac Surgery - Stent, Hx Coronary Stent - x2, Hx Umbilical Hernia, Other - Skin cancer - Immunizations Hx Diphtheria, Pertussis, Tetanus Vaccination: Yes Hx Pneumococcal Vaccination: 07/08/11 Review of Systems - Review of Systems Constitutional: denies: Fever Cardiovascular: Dyspnea. denies: Chest pain Respiratory: Short of breath Gastrointestinal: Abdominal pain, Diarrhea. denies: Abdomen distended, Vomiting Genitourinary: denies: Burning, Dysuria, Flank pain Neurological/Psychological: denies: Headaches -: Yes All other systems reviewed and negative Physical Exam - Vital signs Vitals: Temp Pulse Resp BP Pulse Ox 98.0 F 69 18 161/62 H 97 04/10/19 17:05 04/10/19 17:05 04/10/19 17:05 04/10/19 17:05 04/10/19 17:05 - General General appearance: Appears well, Alert - Respiratory Respiratory status: No respiratory distress Chest status: Nontender Breath sounds: Rales Chest palpation: Normal - Cardiovascular Rhythm: Regular Heart sounds: Normal auscultation Murmur: No - Abdominal Inspection: Normal Distension: No distension Bowel sounds: Normal Tenderness: Tender - There is LLQ tenderness. NO guarding or rebound. Organomegaly: No organomegaly - Back Back: Normal, Nontender - Psychological Associated symptoms: Normal affect, Normal mood - Skin Skin Temperature: Warm Skin Moisture: Dry Skin Color: Normal Course - Re-evaluation Re-evalutation: 04/10/19 20:41 Differential diagnosis includes colitis vs diverticulitis vs Crohn's flare up vs gastroenteritis vs toxic megacolon vs UTI. 2.? CHF 04/10/19 22:25 04/10/19 23:37 EKG shows normal sinus rhythm at 67 bpm. Normal axis. No acute injury pattern. Reevaluate. Labs and imaging reviewed. Lasix given for CHF. Given her multiple drug allergies, I will cover her pneumonia with doxycycline. Patient's care discussed with Dr. Shabazz. Will admit. - Vital Signs Vital signs: Temp Pulse Resp BP Pulse Ox 98.0 F 69 16 182/73 H 98 04/10/19 17:05 04/10/19 17:05 04/10/19 23:02 04/10/19 23:02 04/10/19 23:02 - Laboratory Result Diagrams: 04/10/19 18:35 04/10/19 18:35 Laboratory results interpreted by me: 04/10/19 04/10/19 04/10/19 18:35 18:35 18:35 Hgb 10.2 L Hct 33.2 L MCV 78 L MCH 23.9 L MCHC 30.7 L RDW 15.4 H Carbon Dioxide 35 H BUN 29 H Est GFR (MDRD) Non-Af 58 L NT-Pro-B Natriuret Pep 8340 H Total Protein 6.0 L Discharge - Discharge Clinical Impression: Acute exacerbation of CHF (congestive heart failure) Qualifiers: Heart failure type: unspecified Qualified Code(s): I50.9 - Heart failure, unspecified Pneumonia Qualifiers: Pneumonia type: due to unspecified organism Laterality: right Lung location: middle lobe of lung Qualified Code(s): J18.1 - Lobar pneumonia, unspecified organism Abdominal pain Qualifiers: Abdominal location: left lower quadrant Qualified Code(s): R10.32 - Left lower quadrant pain Condition: Stable Disposition: ADMITTED INPATIENT Admitting Provider: Roman (Hospitalist) Unit Admitted: Medical Floor Referrals: RACHEL MEDRANO FNP [Primary Care Provider] - Follow up as needed
--- NOTE | 2019-04-10 22:23 | RADIOLOGY REPORT (SQ) ---
EXAM DESCRIPTION: CT ABDOMEN PELVIS WITH IV CONTRAST COMPLETED DATE/TME: 04/10/2019 00:00 CLINICAL HISTORY: 83 years, Female, abd pain x1 week COMPARISON: 02/02/2019 CT TECHNIQUE: 378 Images stored on PACS. All CT scanners at this facility use dose modulation, iterative reconstruction, and/or weight based dosing when appropriate to reduce radiation dose to as low as reasonably achievable (ALARA). [facility]: Dose Right [facility]: CareDose [facility]: Dose Right [facility]: Teradose 4D [facility]: [employer] LIMITATIONS: None. FINDINGS: Limited evaluation of the lung bases shows a small right pleural effusion. Patchy groundglass opacity of the right middle lobe may reflect minor pneumonitis. Osseous structures are grossly intact. Fatty infiltrative change to the liver. Stable 5 x 5 mm hypodensity in the posterior right hepatic lobe. Associated punctate calcification. Second stable subcentimeter hypodensity near the dome of the liver. The spleen, adrenal glands, pancreas, kidneys are unremarkable. Diffuse anasarca. The gallbladder is contracted. Stable atheromatous change of the abdominal aorta. Maximal diameter is 2.4 x 2.4 cm. No evidence for bowel obstruction. No free air or free fluid IMPRESSION: No acute intra-abdominal/pelvic process. Small right pleural effusion. Anasarca. Minor right middle lobe pneumonitis TECHNICAL DOCUMENTATION: Quality ID # [id number]: Final reports with documentation of one or more dose reduction techniques (e.g., Automated exposure control, adjustment of the mA and/or kV according to patient size, use of iterative reconstruction technique) copyright 2011 [employer]- All Rights Reserved
[2019-04-10] MEDS ORDERED: FUROSEMIDE INJ/PF 20 MG/2 ML SDV IV ONE (22:24)
--- NOTE | 2019-04-10 23:21 | EKG REPORT ---
SEVERITY:- ABNORMAL ECG - SINUS RHYTHM NONSPECIFIC INTRAVENTRICULAR CONDUCTION DELAY : Confirmed by: Cathy Bacon MD 10-Apr-2019 23:20:35
[2019-04-10] MEDS ORDERED: DOXYCYCLINE HYCLATE INJ 100 MG VIAL IV ONE (23:24)
[2019-04-11 00:04] LABS: APPEARANCE,URINE CLEAR; BILIRUBIN,URINE NEGATIVE (NEGATIVE); COLOR,URINE STRAW; GLUCOSE, URINE NEGATIVE (NEGATIVE); KETONES,URINE NEGATIVE (NEGATIVE); LEUKOCYTE ESTERASE,URINE SMALL (NEGATIVE); NITRITE,URINE NEGATIVE (NEGATIVE); PROTEIN,URINE NEGATIVE (NEGATIVE); UROBILINOGEN,URINE NEGATIVE mg/dL (<2.0)
[2019-04-11] MEDS ORDERED: ACETAMINOPHEN 325 MG TABLET PO PRN (01:28)
[2019-04-11] MEDS ORDERED: NALBUPHINE HCL INJ 10 MG/1 ML AMPULE IV PRN ×3 (01:28→01:44)
[2019-04-11] MEDS ORDERED: MAGNESIUM HYDROXIDE SUSP 30 ML UDCUP PO PRN (01:28)
[2019-04-11] MEDS ORDERED: LEVALBUTEROL HCL NEB 0.63 MG/3 ML AMPUL NEB PRN (01:28)
[2019-04-11] MEDS ORDERED: MAG HYDROX/AL HYDROX/SIMETH SUSP 30 ML UDCUP PO PRN (01:28)
[2019-04-11] MEDS ORDERED: ONDANSETRON HCL INJ/PF 4 MG/2 ML SDV IV PRN (01:30)
[2019-04-11 02:21] LABS: FREE T3 2.64 pg/mL (2.77-5.27)
[2019-04-11] MEDS: HYDRALAZINE HCL 50 MG TABLET PO SCH ×3 (05:49→21:35)
[2019-04-11] MEDS ORDERED: HEPARIN SOD (PORCINE) 5,000 UNIT/ML 1 ML VIAL SUBCUT SCH (06:00)
[2019-04-11] MEDS ORDERED: FUROSEMIDE INJ/PF 40 MG/4 ML SDV IV SCH (06:00)
--- NOTE | 2019-04-11 06:20 | PDOC H&P ---
History of Present Illness Admission Date/PCP: 04/10/2019 23:31 CARMELA RESENDIZ Patient complains of: Abdominal pain History of Present Illness: CINTHYA DNAIELLE is a 83 year old female who presented to the emergency room with a 2-week history of abdominal pain. She admits developing symptoms of left lower quadrant abdominal pain and diarrhea 2 weeks ago with intermittent episodes which have become more frequent, more intense and of longer duration over that c ourse of time. Her pain is characterized as intermittent aching and cramping, of moderate to severe intensity without radiation. Her symptoms have been accompanied by progressively worsening dyspnea, which is worsened by exertion. She admits prior similar episodes with Crohn's disease. She has not identified any aggravating or ameliorating factors for her abdominal pain. She was concerned that this may represent a flareup of her Crohn's disease and presented to her primary care provider's office today for evaluation. She was sent from his office to the emergency room due to a low oxygen saturation level of 83%. In the emergency room the patient's CT scan of the abdomen and pelvis was generally unremarkable, but she was found to have congestive heart failure radiographically which was confirmed by a BNP of 8400 and she was subsequently admitted to the hospital for further evaluation and treatment. Past Medical History Cardiac Medical History: Reports: Atrial Fibrillation, Congestive Heart Failure, Coronary Artery Disease - Has had a couple of stents placed in her arteries., Myocardial Infarction - 10/2014, Hyperlipidema, Hypertension Denies: DVT, Pulmonary Embolism Pulmonary Medical History: Reports: Asthma, Chronic Obstructive Pulmonary Disease (COPD), Pneumonia EENT Medical History: Denies: Cataracts, Ears - Hearing aids Neurological Medical History: Denies: Hemorrhagic CVA, Ischemic CVA, Seizures Endocrine Medical History: Denies: Diabetes Mellitus Type 1, Diabetes Mellitus Type 2, Hyperthyroidism, Hypothyroidism, Obesity Renal/ Medical History: Denies: Chronic Kidney Disease, Nephrolithiasis Malignancy Medical History: Reports: Skin Cancer GI Medical History: Reports: Crohn's Disease, Gastroesophageal Reflux Disease, Hiatal Hernia Denies: Cirrhosis, Hepatitis Musculoskeltal Medical History: Reports: Arthritis Denies: Gout Skin Medical History: Denies: Eczema, Psoriasis Psychiatric Medical History: Reports: Depression Denies: Alcohol Dependency, Substance Abuse, Tobacco Dependency Traumatic Medical History: Reports: None Hematology: Reports: Anemia - Chronic Denies: Bleeding Tendencies Infectious Medical History: Reports: None Past Surgical History Past Surgical History: Reports: Cardiac Catheterization - with stents, Coronary Stent - x2, Other - Skin cancer surgery Social History Information Source: Patient Lives with: Family Smoking Status: Current Every Day Smoker Electronic Cigarette use?: No Frequency of Alcohol Use: None Hx Recreational Drug Use: No Drugs: None Hx Prescription Drug Abuse: No - Advance Directive Resuscitation Status: Full Code Surrogate healthcare decision maker:: Merrick Coy Family History Family History: CAD - Father, COPD - Brother, CVA - Mother, DM, Hypertension, Malignancy - 1 sister colon cancer and another sister lung cancer Parental Family History Reviewed: Yes Children Family History Reviewed: No Sibling(s) Family History Reviewed.: Yes Medication/Allergy Home Medications: Calcitriol [Rocaltrol 0.25 mcg Capsule] 0.25 mcg PO MOWEFR@1000 10/05/17 Rosuvastatin Calcium [Crestor 10 mg Tablet] 10 mg PO QHS 10/05/17 Dexlansoprazole [Dexilant 60 mg Capsule] 60 mg PO DAILY #30 cap.dr.bp 10/06/17 Metoprolol Tartrate [Lopressor 50 mg Tablet] 50 mg PO Q12 tablet 10/06/17 Apixaban [Eliquis 5 mg Tablet] 5 mg PO BID 05/03/18 Hydralazine HCl [Apresoline 50 mg Tablet] 50 mg PO TID 05/03/18 Losartan Potassium [Cozaar 100 mg Tablet] 100 mg PO DAILY 05/03/18 Mesalamine [Lialda] 2.4 gm PO QHS 05/03/18 Diltiazem HCl [Cardizem Cd 120 mg Capsule] 120 mg PO DAILY #30 cap.sr.24h 05/04/18 Aspirin [Ecotrin] 81 mg PO DAILY 06/17/18 Benzonatate [Tessalon Perle 100 mg Capsule] 100 mg PO ASDIR PRN 06/17/18 Budesonide/Formoterol Fumarate [Symbicort Hfa 160-4.5 Mcg Inhaler 6 gm] 2 puff IH Q12 06/17/18 Doxycycline Hyclate [Vibramycin] 100 mg PO DAILY 06/17/18 Duloxetine HCl [Cymbalta] 30 mg PO DAILY 06/17/18 Hydrocodone/Acetaminophen [Hydrocodone-Acetamin 5-300 mg] 1 each PO Q4H PRN 06/17/18 Ondansetron [Zuplenz] 4 mg PO Q4H PRN 06/17/18 Nitrofurantoin Macrocrystal [Macrodantin] 100 mg PO BID #14 capsule 08/23/18 Furosemide [Lasix 20 mg Tablet] 20 mg PO QAM #30 tablet 10/15/18 Chlorpheniramine/Dextromethorp [Coricidin Hbp Cough & Cold Tab] 1 each PO Q12H #14 tablet 11/10/18 Nitrofurantoin/Nitrofuran Mac [Macrobid 100 mg Capsule] 1 tab PO BID #6 capsule 11/23/18 Hydrocodone/Acetaminophen [[place] 5-325 mg Tabs (6 Tab/ER Disp)] 0.5 tab PO Q6 PRN #6 dspk 03/14/19 Allergies/Adverse Reactions: prednisone [Prednisone] Allergy (Unknown, Verified 04/10/19 17:23) cephalexin [Cephalexin] Allergy (Verified 04/10/19 17:23) Cephalosporins Allergy (Verified 04/10/19 17:23) ciprofloxacin [From Cipro] Allergy (Verified 04/10/19 17:23) cortisone [Cortisone] Allergy (Verified 04/10/19 17:23) Penicillins Allergy (Verified 04/10/19 17:23) phenazopyridine [Phenazopyridine] Allergy (Verified 04/10/19 17:23) Sulfa (Sulfonamide Antibiotics) Allergy (Verified 04/10/19 17:23) sulfamethoxazole [From Bactrim] Allergy (Verified 04/10/19 17:23) tramadol HCl [From Ultram] Allergy (Verified 04/10/19 17:23) trimethoprim [From Bactrim] Allergy (Verified 04/10/19 17:23) Review of Systems Constitutional: ABSENT: anorexia, chills, fever(s) Eyes: ABSENT: visual disturbances, other - Eye pain Ears: ABSENT: hearing changes, other - Ear pain Nose, Mouth, and Throat: ABSENT: mouth pain, sore throat Cardiovascular: PRESENT: as per HPI, dyspnea on exertion. ABSENT: chest pain, palpitations Respiratory: PRESENT: as per HPI, dyspnea. ABSENT: cough Gastrointestinal: PRESENT: as per HPI, abdominal pain, diarrhea. ABSENT: constipation, hematochezia, melena, nausea, vomiting Genitourinary: ABSENT: dysuria, hematuria Musculoskeletal: ABSENT: back pain, joint swelling Integumentary: ABSENT: pruritus, rash Neurological: ABSENT: confusion, convulsions, focal weakness, memory loss, syncope Psychiatric: ABSENT: anxiety, depression Endocrine: ABSENT: cold intolerance, heat intolerance Hematologic/Lymphatic: ABSENT: easy bleeding, easy bruising Allergic/Immunologic: ABSENT: seasonal rhinorrhea Physical Exam Vital Signs: Temp Pulse Resp BP Pulse Ox 98.0 F 69 16 182/73 H 98 04/10/19 17:05 04/10/19 17:05 04/10/19 23:02 04/10/19 23:02 04/10/19 23:02 Intake & Output 04/08/19 04/09/19 04/10/19 23:59 23:59 23:59 Weight 64.9 kg General appearance: PRESENT: no acute distress, cooperative, other - On supplemental oxygen per nasal cannula Head exam: PRESENT: atraumatic, normocephalic Eye exam: PRESENT: conjunctiva pink. ABSENT: conjunctival injection, scleral icterus Ear exam: PRESENT: normal external ear exam. ABSENT: bleeding, drainage Mouth exam: PRESENT: dry mucosa, neck supple Neck exam: ABSENT: thyromegaly, tracheal deviation Respiratory exam: PRESENT: decreased breath sounds - Breath sounds are decreased at both bases with dullness to percussion noted at both bases., rales - Bibasilar fine rales noted, symmetrical Cardiovascular exam: PRESENT: RRR. ABSENT: clicks, gallop, rubs Pulses: PRESENT: normal carotid pulses, normal radial pulses Vascular exam: PRESENT: normal capillary refill. ABSENT: pallor GI/Abdominal exam: PRESENT: normal bowel sounds, soft, tenderness - Minimal left lower quadrant tenderness to palpation Rectal exam: PRESENT: deferred Extremities exam: ABSENT: joint swelling Musculoskeletal exam: ABSENT: deformity, dislocation Neurological exam: PRESENT: alert, oriented to person, oriented to place, oriented to time, oriented to situation, CN II-XII grossly intact. ABSENT: motor sensory deficit Psychiatric exam: PRESENT: appropriate affect, normal mood Skin exam: PRESENT: dry, intact, warm. ABSENT: jaundice, rash, urticaria Results Laboratory Results: 04/10/19 18:35 04/10/19 18:35 04/10/19 04/10/19 18:35 18:35 WBC 6.1 RBC 4.26 Hgb 10.2 L Hct 33.2 L MCV 78 L MCH 23.9 L MCHC 30.7 L RDW 15.4 H Plt Count 225 Seg Neutrophils % 73.3 Sodium 139.6 Potassium 4.1 Chloride 100 Carbon Dioxide 35 H Anion Gap 5 BUN 29 H Creatinine 0.93 Est GFR ( Amer) > 60 Glucose 101 Calcium 9.1 Total Bilirubin 0.4 AST 21 Alkaline Phosphatase 54 Total Protein 6.0 L Albumin 3.6 Lipase 115.6 04/10/19 18:35 NT-Pro-B Natriuret Pep 8340 H Impressions: Abdomen/Pelvis CT 04/10/19 00:00 IMPRESSION: No acute intra-abdominal/pelvic process. Small right pleural effusion. Anasarca. Minor right middle lobe pneumonitis TECHNICAL DOCUMENTATION: Quality ID # [id number]: Final reports with documentation of one or more dose reduction techniques (e.g., Automated exposure control, adjustment of the mA and/or kV according to patient size, use of iterative reconstruction technique) copyright 2011 [employer]- All Rights Reserved Chest X-Ray 04/10/19 17:30 IMPRESSION: Marked cardiomegaly, trace bilateral pleural effusions with Jacki lines worrisome for mild congestive failure Assessment and Plan - Diagnosis (1) Acute on chronic combined systolic and diastolic CHF (congestive heart failure) Is this a current diagnosis for this admission?: Yes (2) Acute on chronic respiratory failure with hypoxia Is this a current diagnosis for this admission?: Yes (3) Abdominal pain Qualifiers: Abdominal location: left lower quadrant Qualified Code(s): R10.32 - Left lower quadrant pain Is this a current diagnosis for this admission?: Yes (4) Hypertension Qualifiers: Hypertension type: essential hypertension Qualified Code(s): I10 - Essential (primary) hypertension Is this a current diagnosis for this admission?: Yes (5) CAD (coronary artery disease) Qualifiers: Coronary Disease-Associated Artery/Lesion type: zuni artery [place] vs. transplanted heart: zuni heart Associated angina: angina presence unspecified Qualified Code(s): I25.10 - Atherosclerotic heart disease of zuni coronary artery without angina pectoris Is this a current diagnosis for this admission?: Yes (6) Hyperlipidemia Qualifiers: Hyperlipidemia type: unspecified Qualified Code(s): E78.5 - Hyperlipidemia, unspecified Is this a current diagnosis for this admission?: Yes (7) GERD (gastroesophageal reflux disease) Qualifiers: Esophagitis presence: without esophagitis Qualified Code(s): K21.9 - Gastro-esophageal reflux disease without esophagitis Is this a current diagnosis for this admission?: Yes (8) Anemia Qualifiers: Anemia type: unspecified type Qualified Code(s): D64.9 - Anemia, unspecified Is this a current diagnosis for this admission?: Yes - Plan Summary Summary: Patient is admitted for treatment with IV diuretics and adjustment of her chronic congestive heart failure therapy. Her usual medications will be continued were appropriate. Daily CBCs, metabolic profiles and magnesium levels will be obtained. A surgical consultation may be obtained for evaluation of her abdominal pain. She will receive supplemental oxygen provided via nasal cannula and or advanced noninvasive airway pressure support devices such as CPAP or BiPAP, to maintain an O2 sat greater than 93%. Her abdominal pain will be treated with Nubain 5 to 10 mg IV every 3 hours on an as needed basis using a sliding scale. - Time Time Spent with patient: 25-34 minutes Medications reviewed and adjusted accordingly: Yes Anticipated discharge: Home with Homehealth - Inpatient Certification Based on my medical assessment, after consideration of the patient's comorbidities, presenting symptoms, or acuity I expect that the services needed warrant INPATIENT care.: Yes I certify that my determination is in accordance with my understanding of Medicare's requirements for reasonable and necessary INPATIENT services [42 CFR 412.3e].: Yes Medical Necessity: Significant Comorbidiites Make Outpatient Treatment Too Risky, Need Close Monitoring Due to Risk of Patient Decompensation, Risk of Complication if Not Cared For in Hospital
[2019-04-11 07:59] LABS: ABSOLUTE EOSINOPHILS # (AUTO) 0.1 10^3/uL (0.0-0.6); ABSOLUTE LYMPHOCYTES (AUTO) 1.1 10^3/uL (0.5-4.7); ABSOLUTE MONOCYTES (AUTO) 0.3 10^3/uL (0.1-1.4); ABSOLUTE NEUT (AUTO) 3.3 10^3/uL (1.7-8.2); BASOPHILS % (AUTO) 0.9 % (0-2); EOSINOPHILS % (AUTO) 1.2 % (0-6); HEMOGLOBIN 9.7 g/dL (12.0-15.5); LYMPHOCYTES % (AUTO) 22.2 % (13-45); MEAN CORPUSCULAR HGB CONC 31.2 g/dL (32.0-36.0); MEAN CORPUSCULAR VOLUME 77 fl (80-97); PLATELET COUNT 183 10^3/uL (150-450); RED BLOOD COUNT 4.04 10^6/uL (3.72-5.28); RED CELL DISTRIBUTION WIDTH 15.6 % (11.5-14.0); SEGMENTED NEUTROPHILS % (AUTO) 68.7 % (42-78); TOTAL CELLS COUNTED % (AUTO) 100 %; WHITE BLOOD COUNT 4.8 10^3/uL (4.0-10.5)
[2019-04-11] MEDS: LEVALBUTEROL HCL NEB 1.25 MG/3 ML AMPUL NEB SCH ×3 (08:24→23:56)
[2019-04-11] MEDS: IPRATROPIUM BROMIDE 0.02% NEB 0.5 MG/2.5 ML AMPUL NEB SCH ×3 (08:24→23:56)
[2019-04-11 08:33] LABS: ALBUMIN 3.2 g/dL (3.5-5.0); ALKALINE PHOSPHATASE 55 U/L (38-126); ASPARTATE AMINO TRANSFERASE 20 U/L (14-36); BILIRUBIN,DIRECT 0.3 mg/dL (0.0-0.4); BILIRUBIN,TOTAL 0.4 mg/dL (0.2-1.3); BLOOD UREA NITROGEN 24 mg/dL (7-20); CALCIUM 8.8 mg/dL (8.4-10.2); GLUCOSE 90 mg/dL (75-110); POTASSIUM 4.1 mmol/L (3.6-5.0); TOTAL PROTEIN 5.2 g/dL (6.3-8.2)
[2019-04-11 08:38] LABS: CARBON DIOXIDE 37 mmol/L (22-30); CHLORIDE 97 mmol/L (98-107)
[2019-04-11 08:41] LABS: ANION GAP 4 (5-19)
[2019-04-11] MEDS: METOPROLOL SUCCINATE 50 MG TAB.SR.24H PO SCH (09:38)
[2019-04-11] MEDS: ASPIRIN 81 MG TABLET, ENT COATED PO SCH (09:38)
[2019-04-11] MEDS: APIXABAN 5 MG TABLET PO SCH ×2 (09:38→17:53)
[2019-04-11] MEDS: FAMOTIDINE 20 MG TABLET PO SCH ×2 (09:38→21:34)
[2019-04-11] MEDS: DILTIAZEM HCL 120 MG CAP.SR.24H PO SCH (09:38)
[2019-04-11] MEDS: DOCUSATE SODIUM 100 MG CAPSULE PO SCH ×2 (09:38→17:53)
[2019-04-11] MEDS ORDERED: ONDANSETRON HCL 8 MG TABLET PO PRN (11:06)
--- NOTE | 2019-04-11 11:18 | PDOC PROGRESS REPORT ---
Subjective Progress Note for:: 04/11/19 Subjective:: 83 year old female who presented to the emergency room with a 2-week history of abdominal pain. She admits developing symptoms of left lower quadrant abdominal pain and diarrhea 2 weeks ago with intermittent episodes which have become more frequent, more intense and of longer duration over that course of time. Her pain is characterized as intermittent aching and cramping, of moderate to severe intensity without radiation. Her symptoms have been accompanied by progressively worsening dyspnea, which is worsened by exertion. She admits prior similar episodes with Crohn's disease. She has not identified any aggravating or ameliorating factors for her abdominal pain. She was concerned that this may represent a flareup of her Crohn's disease and presented to her primary care provider's office today for evaluation. She was sent from his office to the emergency room due to a low oxygen saturation level of 83%. In the emergency room the patient's CT scan of the abdomen and pelvis was generally unremarkable, but she was found to have congestive heart failure radiographically which was confirmed by a BNP of 8400 and she was subsequently admitted to the hospital for further evaluation and treatment. 04/11/[id number]-voah-old female admitted for abdominal pain able to tolerate the diet. On examination this morning soft nontender. Family members at bedside happy with the care. Chest x-ray at the time of admission shows mild vascular congestion. Patient is not communicative much. Just well ago the nurse called me and told me patient was more confused and the family is concerned about it I tried to call 2 different numbers that was in the chart unable to reach anybody on the phone. Going to place her on nicotine patch arrange for a CT head. Reason For Visit: ABDOMINAL PAIN Physical Exam Vital Signs: Temp Pulse Resp BP Pulse Ox 98.5 F 80 16 139/48 H 98 04/11/19 05:46 04/11/19 08:25 04/11/19 08:25 04/11/19 06:55 04/11/19 08:25 Intake & Output 04/10/19 04/11/19 04/12/19 06:59 06:59 06:59 Output Total 300 Balance -300 Weight 65.7 kg General appearance: PRESENT: no acute distress Head exam: PRESENT: atraumatic Eye exam: PRESENT: PERRLA Mouth exam: PRESENT: moist, tongue midline Teeth exam: PRESENT: poor dentation Neck exam: ABSENT: carotid bruit, JVD, lymphadenopathy, thyromegaly Respiratory exam: PRESENT: crackles, decreased breath sounds Cardiovascular exam: PRESENT: RRR. ABSENT: diastolic murmur, rubs, systolic murmur Pulses: PRESENT: normal dorsalis pedis pul GI/Abdominal exam: PRESENT: normal bowel sounds, soft. ABSENT: distended, gu arding, mass, organolmegaly, rebound, tenderness Rectal exam: PRESENT: deferred Neurological exam: PRESENT: alert, awake, oriented to person, oriented to place, oriented to time, oriented to situation, CN II-XII grossly intact. ABSENT: motor sensory deficit Psychiatric exam: PRESENT: anxious Results Laboratory Results: 04/11/19 07:50 04/11/19 07:50 04/10/19 04/10/19 04/10/19 18:35 18:35 18:35 WBC 6.1 RBC 4.26 Hgb 10.2 L Hct 33.2 L MCV 78 L MCH 23.9 L MCHC 30.7 L RDW 15.4 H Plt Count 225 Seg Neutrophils % 73.3 Sodium 139.6 Potassium 4.1 Chloride 100 Carbon Dioxide 35 H Anion Gap 5 BUN 29 H Creatinine 0.93 Est GFR ( Amer) > 60 Glucose 101 Calcium 9.1 Total Bilirubin 0.4 AST 21 Alkaline Phosphatase 54 Total Protein 6.0 L Albumin 3.6 Lipase 115.6 Free T4 1.00 Free T3 pg/mL 2.64 L Urine Color Urine Appearance Urine pH Ur Specific [place] Urine Protein Urine Glucose (UA) Urine Ketones Urine Blood Urine Nitrite Ur Leukocyte Esterase Urine WBC (Auto) Urine RBC (Auto) 04/10/19 04/11/19 04/11/19 23:45 07:50 07:50 WBC 4.8 RBC 4.04 Hgb 9.7 L Hct 31.0 L MCV 77 L MCH 24.0 L MCHC 31.2 L RDW 15.6 H Plt Count 183 Seg Neutrophils % 68.7 Sodium 138.2 Potassium 4.1 Chloride 97 L Carbon Dioxide 37 H Anion Gap 4 L BUN 24 H Creatinine 0.78 Est GFR ( Amer) > 60 Glucose 90 Calcium 8.8 Total Bilirubin 0.4 AST 20 Alkaline Phosphatase 55 Total Protein 5.2 L Albumin 3.2 L Lipase Free T4 Free T3 pg/mL Urine Color STRAW Urine Appearance CLEAR Urine pH 5.0 Ur Specific [place] 1.010 Urine Protein NEGATIVE Urine Glucose (UA) NEGATIVE Urine Ketones NEGATIVE Urine Blood NEGATIVE Urine Nitrite NEGATIVE Ur Leukocyte Esterase SMALL H Urine WBC (Auto) 2 Urine RBC (Auto) 0 04/10/19 04/10/19 18:35 22:54 Troponin I 0.020 NT-Pro-B Natriuret Pep 8340 H Impressions: Abdomen/Pelvis CT 04/10/19 00:00 IMPRESSION: No acute intra-abdominal/pelvic process. Small right pleural effusion. Anasarca. Minor right middle lobe pneumonitis TECHNICAL DOCUMENTATION: Quality ID # 436: Final reports with documentation of one or more dose reduction techniques (e.g., Automated exposure control, adjustment of the mA and/or kV according to patient size, use of iterative reconstruction technique) copyright 2011 [employer]- All Rights Reserved Chest X-Ray 04/10/19 17:30 IMPRESSION: Marked cardiomegaly, trace bilateral pleural effusions with Jacki lines worrisome for mild congestive failure Assessment and Plan - Diagnosis (1) Abdominal pain Qualifiers: Abdominal location: left lower quadrant Qualified Code(s): R10.32 - Left lower quadrant pain Is this a current diagnosis for this admission?: Yes (2) Acute on chronic respiratory failure with hypoxia Is this a current diagnosis for this admission?: Yes (3) Acute exacerbation of CHF (congestive heart failure) Qualifiers: Heart failure type: unspecified Qualified Code(s): I50.9 - Heart failure, unspecified Is this a current diagnosis for this admission?: No (4) Acute and chronic respiratory failure ([id number]) Qualifiers: Respiratory failure complication: hypoxia Qualified Code(s): J96.21 - Acute and chronic respiratory failure with hypoxia Is this a current diagnosis for this admission?: Yes (5) Hypertension Qualifiers: Hypertension type: essential hypertension Qualified Code(s): I10 - Essential (primary) hypertension Is this a current diagnosis for this admission?: Yes (6) Coronary atherosclerosis Qualifiers: Coronary Disease-Associated Artery/Lesion type: [place] artery [place] vs. transplanted heart: [place] heart Associated angina: without angina Qualified Code(s): I25.10 - Atherosclerotic heart disease of [place] coronary artery without angina pectoris Is this a current diagnosis for this admission?: No (7) Anemia Qualifiers: Anemia type: unspecified type Qualified Code(s): D64.9 - Anemia, unspecified Is this a current diagnosis for this admission?: Yes - Plan Summary Summary: Patient is admitted for treatment with IV diuretics and adjustment of her chronic congestive heart failure therapy. Her usual medications will be continued were appropriate. Daily CBCs, metabolic profiles and magnesium levels will be obtained. A surgical consultation may be obtained for evaluation of her abdominal pain. She will receive supplemental oxygen provided via nasal cannula and or advanced noninvasive airway pressure support devices such as CPAP or BiPAP, to maintain an O2 sat greater than 93%. Her abdominal pain will be treated with Nubain 5 to 10 mg IV every 3 hours on an as needed basis using a sliding scale. 1.abdominal pain Patient came in with complaints of abdominal pain which was resolved. CT abdomen pelvis negative for acute pathology. 2.acute on chronic respiratory failure with hypoxia Chest x-ray negative for pneumonia mild CHF with fluid overload. Pulse oxes is 99%. On examination chest bilateral entry was decreased few crackles at the bases. 3.acute on chronic combined systolic and diastolic heart failure. X-ray shows mild pulmonary congestion Restart her home medications watch for the fluid overload. 4.anemia Hemoglobin is 9.7. Previous hemoglobin is 10.2. Patient has anemia of chronic disease. 5.tobacco abuse To place her on nicotine patch.
[2019-04-11] MEDS: FUROSEMIDE INJ/PF 40 MG/4 ML SDV IV SCH (13:01)
[2019-04-11] MEDS: NICOTINE 14 MG/24 HR PATCH.TD24 TD SCH (13:19)
[2019-04-11] MEDS: LOSARTAN POTASSIUM 50 MG TABLET PO SCH (13:20)
[2019-04-11] MEDS ORDERED: HYDRALAZINE HCL 50 MG TABLET PO SCH (14:00)
--- NOTE | 2019-04-11 14:04 | RADIOLOGY REPORT (SQ) ---
EXAM DESCRIPTION: CT HEAD WITHOUT COMPLETED DATE/TIME: 04/11/2019 1:52 pm REASON FOR STUDY: altered mental statius COMPARISON: 11/23/2018. TECHNIQUE: Axial images acquired through the brain without intravenous contrast. Images reviewed wi th bone, brain and subdural windows. Additional sagittal and coronal reconstructions were generated. Images stored on PACS. All CT scanners at this facility use dose modulation, iterative reconstruction, and/or weight based d osing when appropriate to reduce radiation dose to as low as reasonably achievable (ALARA). [facility]: Dose Right [facility]: CareDose [facility]: Dose Right [facility]: Teradose 4D [facility]: Smart [employer] Technology RADIATION DOSE: CT Rad equipment meets quality standard of care and radiation dose reduction techniq ues were employed. CTDIvol: 53.2 mGy. DLP: 911 mGy-cm. mGy. LIMITATIONS: None. FINDINGS: VENTRICLES: Prominent. CEREBRUM: No masses. No hemorrhage. No midline shift. Areas of low density in the white matter mos t likely due to chronic micro-vascular ischemic change. No evidence for acute infarction. CEREBELLUM: No masses. No hemorrhage. No alteration of density. No evidence for acute infarction. EXTRAAXIAL SPACES: Mild age-related involutional change. No fluid collections. No masses. ORBITS AND GLOBE: No intra- or extraconal masses. Normal contour of globe without masses. CALVARIUM: No fracture. PARANASAL SINUSES: No fluid or mucosal thickening. SOFT TISSUES: No mass or hematoma. OTHER: No other significant finding. IMPRESSION: MILD CHRONIC CHANGES OF ATROPHY AND MICROVASCULAR ISCHEMIA. NO ACUTE PROCESS. EVIDENCE OF ACUTE STROKE: NO. TECHNICAL DOCUMENTATION: JOB ID: [id number] Quality ID # 436: Final reports with documentation of one or more dose reduction techniques (e.g., Au tomated exposure control, adjustment of the mA and/or kV according to patient size, use of iterative reconstruction technique) 2010 [employer]- All Rights Reserved Reading location - IP/workstation name: [email or web address]
[2019-04-11] MEDS: OXYBUTYNIN CHLORIDE 5 MG TABLET PO SCH ×2 (15:49→21:35)
[2019-04-11] MEDS: AZITHROMYCIN 500 MG in DEXTROSE 5%-WATER 250 ML IV SCH (18:03)
[2019-04-11] MEDS: ATORVASTATIN CALCIUM 20 MG TABLET PO SCH (21:34)
[2019-04-11] MEDS ORDERED: (PENDING PHARMACY ID) (Oxybutynin Chloride [Oxybutynin Chloride Er] 10 MG) PO SCH (22:00)
[2019-04-12] MEDS: HYDRALAZINE HCL 50 MG TABLET PO SCH ×3 (05:17→21:47)
[2019-04-12 06:26] LABS: HEMATOCRIT 30.1 % (36.0-47.0); HEMOGLOBIN 9.5 g/dL (12.0-15.5); MEAN CORPUSCULAR HEMOGLOBIN 23.8 pg (27.0-33.4); MEAN CORPUSCULAR HGB CONC 31.5 g/dL (32.0-36.0); MEAN CORPUSCULAR VOLUME 75 fl (80-97); PLATELET COUNT 178 10^3/uL (150-450); RED CELL DISTRIBUTION WIDTH 15.2 % (11.5-14.0); WHITE BLOOD COUNT 5.6 10^3/uL (4.0-10.5)
[2019-04-12 06:46] LABS: BLOOD UREA NITROGEN 20 mg/dL (7-20); CALCIUM 8.9 mg/dL (8.4-10.2); CHLORIDE 96 mmol/L (98-107); CHOLESTEROL 102.63 mg/dL (0-200); GLUCOSE 88 mg/dL (75-110); TRIGLYCERIDES 38 mg/dL (<150)
[2019-04-12 06:57] LABS: DIRECT LDL 49 mg/dL (<100)
[2019-04-12 07:01] LABS: CARBON DIOXIDE 40 mmol/L (22-30)
[2019-04-12 07:57] LABS: ANION GAP 2 (5-19)
[2019-04-12] MEDS: IPRATROPIUM BROMIDE 0.02% NEB 0.5 MG/2.5 ML AMPUL NEB SCH ×2 (08:18→15:58)
[2019-04-12] MEDS: LEVALBUTEROL HCL NEB 1.25 MG/3 ML AMPUL NEB SCH ×2 (08:18→15:58)
[2019-04-12] MEDS: FUROSEMIDE INJ/PF 40 MG/4 ML SDV IV SCH (09:24)
[2019-04-12] MEDS: NICOTINE 14 MG/24 HR PATCH.TD24 TD SCH (09:24)
[2019-04-12] MEDS: DILTIAZEM HCL 120 MG CAP.SR.24H PO SCH (09:25)
[2019-04-12] MEDS: FAMOTIDINE 20 MG TABLET PO SCH ×2 (09:25→21:47)
[2019-04-12] MEDS: DOCUSATE SODIUM 100 MG CAPSULE PO SCH ×2 (09:25→18:27)
[2019-04-12] MEDS: LOSARTAN POTASSIUM 50 MG TABLET PO SCH (09:25)
[2019-04-12] MEDS: METOPROLOL SUCCINATE 50 MG TAB.SR.24H PO SCH (09:25)
[2019-04-12] MEDS: ASPIRIN 81 MG TABLET, ENT COATED PO SCH (09:25)
[2019-04-12] MEDS: APIXABAN 5 MG TABLET PO SCH ×2 (09:25→18:27)
[2019-04-12] MEDS: OXYBUTYNIN CHLORIDE 5 MG TABLET PO SCH ×2 (09:26→21:47)
[2019-04-12] MEDS: DULOXETINE HCL 20 MG CAPSULE.DR PO SCH (09:29)
[2019-04-12] MEDS ORDERED: AZITHROMYCIN INJ 500 MG VIAL IV SCH (10:00)
--- NOTE | 2019-04-12 10:30 | PDOC PROGRESS REPORT ---
Subjective Progress Note for:: 04/12/19 Subjective:: 83 year old female who presented to the emergency room with a 2-week history of abdominal pain. She admits developing symptoms of left lower quadrant abdominal pain and diarrhea 2 weeks ago with intermittent episodes which have become more frequent, more intense and of longer duration over that course of time. Her pain is characterized as intermittent aching and cramping, of moderate to severe intensity without radiation. Her symptoms have been accompanied by progressively worsening dyspnea, which is worsened by exertion. She admits prior similar episodes with Crohn's disease. She has not identified any aggravating or ameliorating factors for her abdominal pain. She was concerned that this may represent a flareup of her Crohn's disease and presented to her primary care provider's office today for evaluation. She was sent from his office to the emergency room due to a low oxygen saturation level of 83%. In the emergency room the patient's CT scan of the abdomen and pelvis was generally unremarkable, but she was found to have congestive heart failure radiographically which was confirmed by a BNP of 8400 and she was subsequently admitted to the hospital for further evaluation and treatment. 04/11/[id number]-brfl-old female admitted for abdominal pain able to tolerate the diet. On examination this morning soft nontender. Family members at bedside happy with the care. Chest x-ray at the time of admission shows mild vascular congestion. Patient is not communicative much. Just well ago the nurse called me and told me patient was more confused and the family is concerned about it I tried to call 2 different numbers that was in the chart unable to reach anybody on the phone. Going to place her on nicotine patch arrange for a CT head. 04/12/2019-no acute events in the last 24 hours. Patient is afebrile trial. Patient is more confused most likely secondary to underlying dementia. CT head was negative for acute pathology. Reason For Visit: ABDOMINAL PAIN Physical Exam Vital Signs: Temp Pulse Resp BP Pulse Ox 98.3 F 85 22 H 175/68 H 93 04/12/19 07:10 04/12/19 07:10 04/12/19 07:10 04/12/19 08:00 04/12/19 07:10 Intake & Output 04/11/19 04/12/19 04/13/19 06:59 06:59 06:59 Intake Total 250 120 Output Total 300 200 Balance -300 50 120 Weight 65.7 kg 63.6 kg General appearance: PRESENT: mild distress, thin Head exam: PRESENT: atraumatic Eye exam: PRESENT: PERRLA Mouth exam: PRESENT: moist, tongue midline Teeth exam: PRESENT: poor dentation Neck exam: ABSENT: carotid bruit, JVD, lymphadenopathy, thyromegaly Respiratory exam: PRESENT: decreased breath sounds, wheezes Cardiovascular exam: PRESENT: bradycardia GI/Abdominal exam: PRESENT: normal bowel sounds, soft. ABSENT: distended, guarding, mass, organolmegaly, rebound, tenderness Rectal exam: PRESENT: deferred Extremities exam: PRESENT: full ROM. ABSENT: calf tenderness, clubbing, pedal edema Neurological exam: PRESENT: alert, awake, oriented to place, oriented to time, oriented to situation, CN II-XII grossly intact. ABSENT: oriented to person, motor sensory deficit Psychiatric exam: PRESENT: anxious Results Laboratory Results: 04/12/19 05:58 04/12/19 05:58 04/12/19 04/12/19 04/12/19 05:58 05:58 05:58 WBC 5.6 RBC 4.00 Hgb 9.5 L Hct 30.1 L MCV 75 L MCH 23.8 L MCHC 31.5 L RDW 15.2 H Plt Count 178 Sodium 138.1 Potassium 4.0 Chloride 96 L Carbon Dioxide 40 H* Anion Gap 2 L BUN 20 Creatinine 0.68 Est GFR ( Amer) > 60 Glucose 88 Calcium 8.9 Magnesium 1.7 Triglycerides 38 Cholesterol 102.63 LDL Cholesterol Direct 49 VLDL Cholesterol 8.0 L HDL Cholesterol 49 TSH 1.17 04/10/19 04/10/19 18:35 22:54 Troponin I 0.020 NT-Pro-B Natriuret Pep 8340 H Impressions: Abdomen/Pelvis CT 04/10/19 00:00 IMPRESSION: No acute intra-abdominal/pelvic process. Small right pleural effusion. Anasarca. Minor right middle lobe pneumonitis TECHNICAL DOCUMENTATION: Quality ID # 436: Final reports with documentation of one or more dose reduction techniques (e.g., Automated exposure control, adjustment of the mA and/or kV according to patient size, use of iterative reconstruction technique) copyright 2011 [employer]- All Rights Reserved Chest X-Ray 04/10/19 17:30 IMPRESSION: Marked cardiomegaly, trace bilateral pleural effusions with Jacki lines worrisome for mild congestive failure Head CT 04/11/19 00:00 IMPRESSION: MILD CHRONIC CHANGES OF ATROPHY AND MICROVASCULAR ISCHEMIA. NO ACUTE PROCESS. EVIDENCE OF ACUTE STROKE: NO. Assessment and Plan - Diagnosis (1) Abdominal pain Qualifiers: Abdominal location: left lower quadrant Qualified Code(s): R10.32 - Left lower quadrant pain Is this a current diagnosis for this admission?: Yes (2) Acute on chronic respiratory failure with hypoxia Is this a current diagnosis for this admission?: Yes (3) Acute exacerbation of CHF (congestive heart failure) Qualifiers: Heart failure type: unspecified Qualified Code(s): I50.9 - Heart failure, unspecified Is this a current diagnosis for this admission?: No (4) Acute and chronic respiratory failure ([id number]) Qualifiers: Respiratory failure complication: hypoxia Qualified Code(s): J96.21 - Acute and chronic respiratory failure with hypoxia Is this a current diagnosis for this admission?: Yes (5) Hypertension Qualifiers: Hypertension type: essential hypertension Qualified Code(s): I10 - Essential (primary) hypertension Is this a current diagnosis for this admission?: Yes (6) Coronary atherosclerosis Qualifiers: Coronary Disease-Associated Artery/Lesion type: [place] artery [place] vs. transplanted heart: [place] heart Associated angina: without angina Qualified Code(s): I25.10 - Atherosclerotic heart disease of [place] coronary artery without angina pectoris Is this a current diagnosis for this admission?: No (7) Anemia Qualifiers: Anemia type: unspecified type Qualified Code(s): D64.9 - Anemia, unspecified Is this a current diagnosis for this admission?: Yes - Plan Summary Summary: Patient is admitted for treatment with IV diuretics and adjustment of her chronic congestive heart failure therapy. Her usual medications will be continued were appropriate. Daily CBCs, metabolic profiles and magnesium levels will be obtained. A surgical consultation may be obtained for evaluation of her abdominal pain. She will receive supplemental oxygen provided via nasal cannula and or advanced noninvasive airway pressure support devices such as CPAP or BiPAP, to maintain an O2 sat greater than 93%. Her abdominal pain will be treated with Nubain 5 to 10 mg IV every 3 hours on an as needed basis using a sliding scale. 1.abdominal pain Patient came in with complaints of abdominal pain which was resolved. CT abdomen pelvis negative for acute pathology. 04/12/2019-patient admitted with abdominal pain CT abdomen pelvis was negative. Able to tolerate the diet well. No diarrhea no constipation noticed during the hospital stay. 2.acute on chronic respiratory failure with hypoxia Chest x-ray negative for pneumonia mild CHF with fluid overload. Pulse oxes is 99%. On examination chest bilateral entry was decreased few crackles at the bases. 04/12/2019-on examination bilateral entry was decreased as she is a chronic smoker bilateral wheezing is present she is receiving breathing treatments scheduled and as needed basis. Socks today is 98% on 2 L. 3.acute on chronic combined systolic and diastolic heart failure. X-ray shows mild pulmonary congestion Restart her home medications watch for the fluid overload. 04/12/2019-patient blood pressure today is 158/58. Not in fluid overload. Plan is to continue the present management. 4.anemia Hemoglobin is 9.7. Previous hemoglobin is 10.2. Patient has anemia of chronic disease. 04/12/2019-patient hemoglobin today is 9.5 stable. Plan is to closely monitor the hemoglobin. 5.tobacco abuse To place her on nicotine patch.
[2019-04-12] MEDS: AZITHROMYCIN 500 MG in DEXTROSE 5%-WATER 250 ML IV SCH (18:27)
[2019-04-12] MEDS: ATORVASTATIN CALCIUM 20 MG TABLET PO SCH (21:47)
[2019-04-13] MEDS: LEVALBUTEROL HCL NEB 1.25 MG/3 ML AMPUL NEB SCH ×2 (00:37→08:13)
[2019-04-13] MEDS: IPRATROPIUM BROMIDE 0.02% NEB 0.5 MG/2.5 ML AMPUL NEB SCH ×2 (00:37→08:13)
[2019-04-13 05:25] LABS: ABSOLUTE EOSINOPHILS # (AUTO) 0.1 10^3/uL (0.0-0.6); ABSOLUTE MONOCYTES (AUTO) 0.4 10^3/uL (0.1-1.4); ABSOLUTE NEUT (AUTO) 4.3 10^3/uL (1.7-8.2); BASOPHILS % (AUTO) 0.8 % (0-2); EOSINOPHILS % (AUTO) 1.1 % (0-6); HEMOGLOBIN 9.2 g/dL (12.0-15.5); LYMPHOCYTES % (AUTO) 17.4 % (13-45); MEAN CORPUSCULAR HGB CONC 31.8 g/dL (32.0-36.0); MEAN CORPUSCULAR VOLUME 75 fl (80-97); MONOCYTES % (AUTO) 7.2 % (3-13); PLATELET COUNT 167 10^3/uL (150-450); RED BLOOD COUNT 3.84 10^6/uL (3.72-5.28); RED CELL DISTRIBUTION WIDTH 15.6 % (11.5-14.0); SEGMENTED NEUTROPHILS % (AUTO) 73.5 % (42-78); TOTAL CELLS COUNTED % (AUTO) 100 %; WHITE BLOOD COUNT 5.8 10^3/uL (4.0-10.5)
[2019-04-13] MEDS: HYDRALAZINE HCL 50 MG TABLET PO SCH (05:37)
[2019-04-13 05:40] LABS: ALBUMIN 2.9 g/dL (3.5-5.0); ALKALINE PHOSPHATASE 51 U/L (38-126); ASPARTATE AMINO TRANSFERASE 19 U/L (14-36); BILIRUBIN,DIRECT 0.1 mg/dL (0.0-0.4); BILIRUBIN,TOTAL 0.5 mg/dL (0.2-1.3); BLOOD UREA NITROGEN 18 mg/dL (7-20); CALCIUM 8.9 mg/dL (8.4-10.2); CHLORIDE 94 mmol/L (98-107); GLUCOSE 86 mg/dL (75-110)
[2019-04-13 05:50] LABS: ANION GAP 2 (5-19); CARBON DIOXIDE 41 mmol/L (22-30)
[2019-04-13] MEDS: ASPIRIN 81 MG TABLET, ENT COATED PO SCH (09:14)
[2019-04-13] MEDS: LOSARTAN POTASSIUM 50 MG TABLET PO SCH (09:14)
[2019-04-13] MEDS: DOCUSATE SODIUM 100 MG CAPSULE PO SCH (09:17)
[2019-04-13] MEDS: APIXABAN 5 MG TABLET PO SCH (09:18)
[2019-04-13] MEDS: METOPROLOL SUCCINATE 50 MG TAB.SR.24H PO SCH (09:18)
[2019-04-13] MEDS: OXYBUTYNIN CHLORIDE 5 MG TABLET PO SCH (09:18)
[2019-04-13] MEDS: DULOXETINE HCL 20 MG CAPSULE.DR PO SCH (09:18)
[2019-04-13] MEDS: NICOTINE 14 MG/24 HR PATCH.TD24 TD SCH (09:18)
[2019-04-13] MEDS: FAMOTIDINE 20 MG TABLET PO SCH (09:18)
[2019-04-13] MEDS: FUROSEMIDE INJ/PF 40 MG/4 ML SDV IV SCH (09:18)
[2019-04-13] MEDS: DILTIAZEM HCL 120 MG CAP.SR.24H PO SCH (09:18)
--- NOTE | 2019-04-13 11:20 | PDOC DISCHARGE SUMMARY ---
Impression - Admit/DC Date/PCP Admission Date/Primary Care Provider: 04/10/19 23:53 CARMELA RESENDIZ Discharge Date: 04/13/19 - Discharge Diagnosis (1) Abdominal pain Is this a current diagnosis for this admission?: Yes (2) Acute on chronic respiratory failure with hypoxia Is this a current diagnosis for this admission?: Yes (3) Acute exacerbation of CHF (congestive heart failure) Is this a current diagnosis for this admission?: No (4) Acute and chronic respiratory failure ([id number]) Is this a current diagnosis for this admission?: Yes (5) Hypertension Is this a current diagnosis for this admission?: Yes (6) Coronary atherosclerosis Is this a current diagnosis for this admission?: No (7) Anemia Is this a current diagnosis for this admission?: Yes - Assessment Summary: Patient is admitted for treatment with IV diuretics and adjustment of her chronic congestive heart failure therapy. Her usual medications will be continued were appropriate. Daily CBCs, metabolic profiles and magnesium levels will be obtained. A surgical consultation may be obtained for evaluation of her abdominal pain. She will receive supplemental oxygen provided via nasal cannula and or advanced noninvasive airway pressure support devices such as CPAP or BiPAP, to maintain an O2 sat greater than 93%. Her abdominal pain will be treated with Nubain 5 to 10 mg IV every 3 hours on an as needed basis using a sliding scale. 1.abdominal pain Patient came in with complaints of abdominal pain which was resolved. CT abdomen pelvis negative for acute pathology. 04/12/2019-patient admitted with abdominal pain CT abdomen pelvis was negative. Able to tolerate the diet well. No diarrhea no constipation noticed during the hospital stay. 04/13/2019-patient came in with nonspecific abdominal pains abdominal pain was resolved CT scan of the time of admission negative for acute pathology. 2.acute on chronic respiratory failure with hypoxia Chest x-ray negative for pneumonia mild CHF with fluid overload. Pulse oxes is 99%. On examination chest bilateral entry was decreased few crackles at the bases. 04/12/2019-on examination bilateral entry was decreased as she is a chronic smoker bilateral wheezing is present she is receiving breathing treatments scheduled and as needed basis. pulse ox today is 98% on 2 L. 04/13/2019-patient's pulse ox today is 94% on room air. Comfortably in the bed. Patient can go home today. 3.acute on chronic combined systolic and diastolic heart failure. X-ray shows mild pulmonary congestion Restart her home medications watch for the fluid overload. 04/12/2019-patient blood pressure today is 158/58. Not in fluid overload. Plan is to continue the present management. 04/13/2019-patient blood pressure today is 136/61. Stable. Explained to the family that patient can continue home medications at home. 4.anemia Hemoglobin is 9.7. Previous hemoglobin is 10.2. Patient has anemia of chronic disease. 04/12/2019-patient hemoglobin today is 9.5 stable. Plan is to closely monitor the hemoglobin. 5.tobacco abuse To place her on nicotine patch. - Additional Information Resuscitation Status: Full Code Discharge Diet: Cardiac Discharge Activity: Activity As Tolerated Referrals: RACHEL MEDRANO FNP [Primary Care Provider] - Follow up as needed (LEFT VOICE MESSAGE WITH 'S OFFICE TO CONTACT PATIENT WITH FOLLOW UP APPT.) Home Medications: Albuterol Sulfate [Proair HFA Inhalation Aerosol 8.5 gm MDI] 2 puff IH Q6HP PRN 04/11/19 Atorvastatin Calcium [Lipitor 20 mg Tablet] 20 mg PO QHS 04/11/19 Duloxetine HCl [Cymbalta 20 mg Capsule.dr] 20 mg PO DAILY 04/11/19 Hydralazine HCl [Apresoline 50 mg Tablet] 50 mg PO TID 04/11/19 Losartan Potassium [Cozaar 100 mg Tablet] 100 mg PO DAILY 04/11/19 Metoprolol Tartrate [Lopressor 50 mg Tablet] 50 mg PO Q12 04/11/19 Ondansetron HCl [Zofran 8 mg Tablet] 8 mg PO Q8HP PRN 04/11/19 Oxybutynin Chloride [Oxybutynin Chloride ER] 10 mg PO QHS 04/11/19 Apixaban [Eliquis 5 mg Tablet] 5 mg PO BID tablet 04/13/19 Diltiazem HCl [Cardizem Cd 120 mg Capsule] 120 mg PO DAILY cap.sr.24h 04/13/19 History of Present Illiness History of Present Illness: CINTHYA DANIELLE is a 83 year old female Physical Exam Vital Signs: Temp Pulse Resp BP Pulse Ox 98.0 F 67 18 136/61 H 86 L 04/13/19 07:11 04/13/19 08:09 04/13/19 08:09 04/13/19 07:11 04/13/19 08:09 Intake & Output 04/12/19 04/13/19 04/14/19 06:59 06:59 06:59 Intake Total 250 955 Output Total 200 Balance 50 955 Weight 63.6 kg 63.1 kg Results Laboratory Results: WBC 5.8 10^3/uL (4.0-10.5) 04/13/19 04:19 RBC 3.84 10^6/uL (3.72-5.28) 04/13/19 04:19 Hgb 9.2 g/dL (12.0-15.5) L 04/13/19 04:19 Hct 29.0 % (36.0-47.0) L 04/13/19 04:19 MCV 75 fl (80-97) L 04/13/19 04:19 MCH 24.0 pg (27.0-33.4) L 04/13/19 04:19 MCHC 31.8 g/dL (32.0-36.0) L 04/13/19 04:19 RDW 15.6 % (11.5-14.0) H 04/13/19 04:19 Plt Count 167 10^3/uL (150-450) 04/13/19 04:19 Lymph % (Auto) 17.4 % (13-45) 04/13/19 04:19 [place] % (Auto) 7.2 % (3-13) 04/13/19 04:19 Eos % (Auto) 1.1 % (0-6) 04/13/19 04:19 Baso % (Auto) 0.8 % (0-2) 04/13/19 04:19 Absolute Neuts (auto) 4.3 10^3/uL (1.7-8.2) 04/13/19 04:19 Absolute Lymphs (auto) 1.0 10^3/uL (0.5-4.7) 04/13/19 04:19 Absolute Monos (auto) 0.4 10^3/uL (0.1-1.4) 04/13/19 04:19 Absolute Eos (auto) 0.1 10^3/uL (0.0-0.6) 04/13/19 04:19 Absolute Basos (auto) 0.0 10^3/uL (0.0-0.2) 04/13/19 04:19 Seg Neutrophils % 73.5 % (42-78) 04/13/19 04:19 Sodium 137.0 mmol/L (137-145) 04/13/19 04:19 Potassium 4.0 mmol/L (3.6-5.0) 04/13/19 04:19 Chloride 94 mmol/L (98-107) L 04/13/19 04:19 Carbon Dioxide 41 mmol/L (22-30) H* 04/13/19 04:19 Anion Gap 2 (5-19) L 04/13/19 04:19 BUN 18 mg/dL (7-20) 04/13/19 04:19 Creatinine 0.75 mg/dL (0.52-1.25) 04/13/19 04:19 Est GFR ( Amer) > 60 (>60) 04/13/19 04:19 Est GFR (MDRD) Non-Af > 60 (>60) 04/13/19 04:19 Glucose 86 mg/dL (75-110) 04/13/19 04:19 Calcium 8.9 mg/dL (8.4-10.2) 04/13/19 04:19 Magnesium 1.8 mg/dL (1.6-2.3) 04/13/19 04:19 Total Bilirubin 0.5 mg/dL (0.2-1.3) 04/13/19 04:19 Direct Bilirubin 0.1 mg/dL (0.0-0.4) 04/13/19 04:19 Neonat Total Bilirubin Not Reportable 04/13/19 04:19 Neonat Direct Bilirubin Not Reportable 04/13/19 04:19 Neonat Indirect Bili Not Reportable 04/13/19 04:19 AST 19 U/L (14-36) 04/13/19 04:19 ALT 11 U/L (<35) 04/13/19 04:19 Alkaline Phosphatase 51 U/L (38-126) 04/13/19 04:19 Troponin I 0.020 ng/mL 04/10/19 22:54 NT-Pro-B Natriuret Pep 8340 pg/mL (<450) H 04/10/19 18:35 Total Protein 5.0 g/dL (6.3-8.2) L 04/13/19 04:19 Albumin 2.9 g/dL (3.5-5.0) L 04/13/19 04:19 Triglycerides 38 mg/dL (<150) 04/12/19 05:58 Cholesterol 102.63 mg/dL (0-200) 04/12/19 05:58 LDL Cholesterol Direct 49 mg/dL (<100) 04/12/19 05:58 VLDL Cholesterol 8.0 mg/dL (10-31) L 04/12/19 05:58 HDL Cholesterol 49 mg/dL (>40) 04/12/19 05:58 Lipase 115.6 U/L (23-300) 04/10/19 18:35 TSH 1.17 uIU/mL (0.47-4.68) 04/12/19 05:58 Free T4 1.00 ng/dL (0.78-2.19) 04/10/19 18:35 Free T3 pg/mL 2.64 pg/mL (2.77-5.27) L 04/10/19 18:35 Urine Color STRAW 04/10/19 23:45 Urine Appearance CLEAR 04/10/19 23:45 Urine pH 5.0 (5.0-9.0) 04/10/19 23:45 Ur Specific [place] 1.010 04/10/19 23:45 Urine Protein NEGATIVE mg/dL (NEGATIVE) 04/10/19 23:45 Urine Glucose (UA) NEGATIVE mg/dL (NEGATIVE) 04/10/19 23:45 Urine Ketones NEGATIVE mg/dL (NEGATIVE) 04/10/19 23:45 Urine Blood NEGATIVE (NEGATIVE) 04/10/19 23:45 Urine Nitrite NEGATIVE (NEGATIVE) 04/10/19 23:45 Urine Bilirubin NEGATIVE (NEGATIVE) 04/10/19 23:45 Urine Urobilinogen NEGATIVE mg/dL (<2.0) 04/10/19 23:45 Ur Leukocyte Esterase SMALL (NEGATIVE) H 04/10/19 23:45 Urine WBC (Auto) 2 /HPF 04/10/19 23:45 Urine RBC (Auto) 0 /HPF 04/10/19 23:45 Urine Bacteria (Auto) TRACE /HPF 04/10/19 23:45 Squamous Epi Cells Auto 2 /HPF 04/10/19 23:45 Urine Mucus (Auto) RARE /LPF 04/10/19 23:45 Urine Ascorbic Acid NEGATIVE (NEGATIVE) 04/10/19 23:45 04/10/19 04/10/19 18:35 22:54 Troponin I 0.020 NT-Pro-B Natriuret Pep 8340 H Impressions: Abdomen/Pelvis CT 04/10/19 00:00 IMPRESSION: No acute intra-abdominal/pelvic process. Small right pleural effusion. Anasarca. Minor right middle lobe pneumonitis TECHNICAL DOCUMENTATION: Quality ID # [id number]: Final reports with documentation of one or more dose reduction techniques (e.g., Automated exposure control, adjustment of the mA and/or kV according to patient size, use of iterative reconstruction technique) copyright 2011 [employer]- All Rights Reserved Chest X-Ray 04/10/19 17:30 IMPRESSION: Marked cardiomegaly, trace bilateral pleural effusions with Jacki lines worrisome for mild congestive failure Head CT 04/11/19 00:00 IMPRESSION: MILD CHRONIC CHANGES OF ATROPHY AND MICROVASCULAR ISCHEMIA. NO ACUTE PROCESS. EVIDENCE OF ACUTE STROKE: NO. Stroke Is this a Stroke Patient?: No Stroke Pt being discharged on Anti-thrombolytic therapy?: No Reason(s) for not prescribing Anti-thrombolytic therapy:: Tx not tolerated Acute Heart Failure - Is this a Heart Failure Patient?: No
[2019-04-13 12:54] VITALS: BP 138/54
== END 2019-04-13 14:00 | disposition home or self-care (01) | DRG 293 ==
LOC: ER 16:50 → EH 23:53 → 4N 04-11 01:20
PROVIDERS: ADMIT Emergency Medicine; ATTEND Emergency Medicine
DX: I11.0 Hypertensive heart disease with heart failure (principal); I50.43 Acute on chronic combined systolic (congestive) and diastolic (congestive) heart failure; I25.10 Atherosclerotic heart disease of native coronary artery without angina pectoris; K21.9 Gastro-esophageal reflux disease without esophagitis; E78.5 Hyperlipidemia, unspecified; F32.9 Major depressive disorder, single episode, unspecified; F17.210 Nicotine dependence, cigarettes, uncomplicated; E78.00 Pure hypercholesterolemia, unspecified; D63.8 Anemia in other chronic diseases classified elsewhere; I25.2 Old myocardial infarction; Z79.899 Other long term (current) drug therapy; Z95.5 Presence of coronary angioplasty implant and graft; Z85.828 Personal history of other malignant neoplasm of skin; Z79.01 Long term (current) use of anticoagulants; Z79.82 Long term (current) use of aspirin; Z88.1 Allergy status to other antibiotic agents; Z88.3 Allergy status to other anti-infective agents; Z88.0 Allergy status to penicillin; Z88.2 Allergy status to sulfonamides; Z88.8 Allergy status to other drugs, medicaments and biological substances; Z82.49 Family history of ischemic heart disease and other diseases of the circulatory system; Z82.3 Family history of stroke; Z83.3 Family history of diabetes mellitus
CPT/HCPCS: 36415; 70450; 71046; 74177; 80048; 80053; 80061; 81001; 83690; 83735; 83880; 84439; 84443; 84481; 84484; 85025; 85027; 87040; 93005; 93010; 94640; 96374; 96375; 99285; J0456; J1940; J2405; J3010; J3490; J7060; J7620

== ENCOUNTER 2019-05-01 12:17 | Emergency (ER) | payer MEDICARE, OTHER ==
[2019-05-01 12:54] LABS: ABSOLUTE BASOPHILS # (AUTO) 0.1 10^3/uL (0.0-0.2); ABSOLUTE LYMPHOCYTES (AUTO) 0.8 10^3/uL (0.5-4.7); ABSOLUTE MONOCYTES (AUTO) 0.3 10^3/uL (0.1-1.4); ABSOLUTE NEUT (AUTO) 4.9 10^3/uL (1.7-8.2); BASOPHILS % (AUTO) 0.9 % (0-2); EOSINOPHILS % (AUTO) 0.5 % (0-6); HEMATOCRIT 31.5 % (36.0-47.0); HEMOGLOBIN 9.6 g/dL (12.0-15.5); LYMPHOCYTES % (AUTO) 13.6 % (13-45); MEAN CORPUSCULAR HEMOGLOBIN 24.2 pg (27.0-33.4); MEAN CORPUSCULAR HGB CONC 30.5 g/dL (32.0-36.0); MONOCYTES % (AUTO) 5.5 % (3-13); PLATELET COUNT 236 10^3/uL (150-450); RED BLOOD COUNT 3.97 10^6/uL (3.72-5.28); SEGMENTED NEUTROPHILS % (AUTO) 79.5 % (42-78); TOTAL CELLS COUNTED % (AUTO) 100 %; WHITE BLOOD COUNT 6.1 10^3/uL (4.0-10.5)
--- NOTE | 2019-05-01 12:54 | RADIOLOGY REPORT (SQ) ---
EXAM DESCRIPTION: CHEST SINGLE VIEW COMPLETED DATE/TIME: 05/01/2019 12:41 pm REASON FOR STUDY: sob COMPARISON: AP view of the chest from 04/10/2019. EXAM PARAMETERS: NUMBER OF VIEWS: One view. TECHNIQUE: Single frontal radiographic view of the chest acquired. RADIATION DOSE: NA LIMITATIONS: None. FINDINGS: LUNGS AND PLEURA: Bilateral, right greater than left, pleural effusions with adjacent area s of atelectasis or consolidation. No pneumothorax. MEDIASTINUM AND HILAR STRUCTURES: Stable mediastinal and hilar contours. HEART AND VASCULAR STRUCTURES: The cardiac silhouette is enlarged but stable. The pulmonary vasculat ure is distended and there are bilateral Jacki B-lines. BONES: No acute findings. HARDWARE: None in the chest. OTHER: No other finding. IMPRESSION: Cardiomegaly with findings of CHF including bilateral pleural effusions and Jacki B-vanesa es. TECHNICAL DOCUMENTATION: JOB ID: [id number] [employer]- All Rights Reserved Reading location - IP/workstation name: [email or web address]
[2019-05-01 12:56] LABS: MEAN CORPUSCULAR VOLUME 79 fl (80-97)
[2019-05-01 13:17] LABS: ALBUMIN 3.4 g/dL (3.5-5.0); ALKALINE PHOSPHATASE 55 U/L (38-126); ANION GAP 5 (5-19); ASPARTATE AMINO TRANSFERASE 27 U/L (14-36); BILIRUBIN,DIRECT 0.2 mg/dL (0.0-0.4); BILIRUBIN,TOTAL 0.2 mg/dL (0.2-1.3); BLOOD UREA NITROGEN 42 mg/dL (7-20); CALCIUM 9.1 mg/dL (8.4-10.2); CARBON DIOXIDE 34 mmol/L (22-30); CHLORIDE 104 mmol/L (98-107); GLUCOSE 75 mg/dL (75-110); POTASSIUM 4.9 mmol/L (3.6-5.0); TOTAL PROTEIN 5.8 g/dL (6.3-8.2)
--- NOTE | 2019-05-01 14:29 | ER Document Report ---
ED General - General Chief Complaint: Shortness Of Breath Stated Complaint: DIFFICULTY BREATHING Time Seen by Provider: 05/01/19 13:23 Primary Care Provider: RACHEL MEDRANO FNP [Primary Care Provider] - Follow up as needed Mode of Arrival: Medic Information source: Patient, Relative TRAVEL OUTSIDE OF THE [place] IN LAST 30 DAYS: No - HPI Patient complains to provider of: leg swelling Onset: Other - pt. states she has h/o CHF with increased swelling of her legs in the past few days . She is on Lasix daily. She denies CP, SOB. She is on home 02 - Related Data Allergies/Adverse Reactions: prednisone [Prednisone] Allergy (Unknown, Verified 04/10/19 17:23) cephalexin [Cephalexin] Allergy (Verified 04/10/19 17:23) Cephalosporins Allergy (Verified 04/10/19 17:23) ciprofloxacin [From Cipro] Allergy (Verified 04/10/19 17:23) cortisone [Cortisone] Allergy (Verified 04/10/19 17:23) Penicillins Allergy (Verified 04/10/19 17:23) phenazopyridine [Phenazopyridine] Allergy (Verified 04/10/19 17:23) Sulfa (Sulfonamide Antibiotics) Allergy (Verified 04/10/19 17:23) sulfamethoxazole [From Bactrim] Allergy (Verified 04/10/19 17:23) tramadol HCl [From Ultram] Allergy (Verified 04/10/19 17:23) trimethoprim [From Bactrim] Allergy (Verified 04/10/19 17:23) Past Medical History - General Information source: Patient, Relative - Social History Smoking Status: Unknown if Ever Smoked Family History: CAD - Father, COPD - Brother, CVA - Mother, DM, Hypertension, Malignancy - 1 sister colon cancer and another sister lung cancer Patient has suicidal ideation: No Patient has homicidal ideation: No - Past Medical History Cardiac Medical History: Reports: Hx Atrial Fibrillation, Hx Congestive Heart Failure, Hx Coronary Artery Disease - Has had a couple of stents placed in her arteries., Hx Heart Attack - 10/2014, Hx Hypercholesterolemia, Hx Hypertension Denies: Hx DVT, Hx Pulmonary Embolism Pulmonary Medical History: Reports: Hx Asthma, Hx COPD, Hx Pneumonia Neurological Medical History: Reports: 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 Denies: Hx Seizures Endocrine Medical History: Reports: Hx Graves' Disease. Denies: Hx Diabetes Mellitus Type 1, Hx Diabetes Mellitus Type 2, Hx Hyperthyroidism, Hx Hypothyroidism Renal/ Medical History: Reports: Hx Renal Insufficiency. Denies: Hx Peritoneal Dialysis Malignancy Medical History: Reports: Hx Skin Cancer GI Medical History: Reports: Hx Crohn's Disease, Hx Gastroesophageal Reflux Disease, Hx Hiatal Hernia, Hx Ulcer, Hx Ulcerative Colitis, Hx Colonoscopy. Denies: Hx Cirrhosis, Hx Hepatitis Musculoskeletal Medical History: Reports Hx Arthritis, Denies Hx Gout Skin Medical History: Denies Hx Eczema, Denies Hx Psoriasis Psychiatric Medical History: Reports: Hx Depression Infectious Medical History: Denies: Hx Hepatitis Past Surgical History: Reports: Hx Abdominal Surgery - hernia repair with mesh, Hx Cardiac Catheterization - with stents, Hx Cardiac Surgery - Stent, Hx Coronary Stent - x2, Hx Umbilical Hernia, Other - Skin cancer surgery - Immunizations Hx Diphtheria, Pertussis, Tetanus Vaccination: Yes Hx Pneumococcal Vaccination: 07/08/11 Review of Systems - Review of Systems Constitutional: No symptoms reported EENT: No symptoms reported Cardiovascular: No symptoms reported Respiratory: No symptoms reported Gastrointestinal: No symptoms reported Musculoskeletal: See HPI, Leg swelling, Ankle swelling Neurological/Psychological: No symptoms reported -: Yes All other systems reviewed and negative Physical Exam - Vital signs Vitals: Resp 15 05/01/19 12:23 - General General appearance: Appears well In distress: None - HEENT Pharynx: Normal Neck: Normal - Respiratory Respiratory status: No respiratory distress Breath sounds: Rales - min L>R - Cardiovascular Rhythm: Regular Heart sounds: Normal auscultation Murmur: No - Abdominal Bowel sounds: Normal Tenderness: Nontender - Extremities General upper extremity: Normal inspection General lower extremity: Edema - there is 1+ non-pitting edema of the legs bilaterally - Neurological Neuro grossly intact: Yes Cognition: Normal Course - Re-evaluation Re-evalutation: 05/01/19 14:58 Pt's exam unchanged from priors - she is not SOB and her CXR is essentially unchanged from priors. She continues to sat around 98% on 2L. She doesn't want to be admitted to the hospital. I will give her some IM lasix here and recommended that she increase her home lasix dose to bid. - Vital Signs Vital signs: Temp Pulse Resp BP Pulse Ox 97.7 F 89 15 123/75 100 05/01/19 12:44 05/01/19 12:44 05/01/19 12:44 05/01/19 12:44 05/01/19 12:47 - Laboratory Result Diagrams: 05/01/19 12:34 05/01/19 12:34 Laboratory results interpreted by me: 05/01/19 05/01/19 05/01/19 12:34 12:34 12:34 Hgb 9.6 L Hct 31.5 L MCV 79 L D MCH 24.2 L MCHC 30.5 L RDW 20.0 H Seg Neutrophils % 79.5 H Carbon Dioxide 34 H BUN 42 H Creatinine 1.45 H Est GFR ( Amer) 42 L Est GFR (MDRD) Non-Af 34 L NT-Pro-B Natriuret Pep 49227 H Total Protein 5.8 L Albumin 3.4 L - Diagnostic Test Radiology reviewed: Reports reviewed - cxr- c-megaly with pleural effusions and Jacki B lines - EKG Interpretation by Me Rate: Normal Rhythm: A.Fib - atrial fib with rate of 86 and non-specific st-t changes without acute change Discharge - Discharge Clinical Impression: CHF (congestive heart failure) Qualifiers: Heart failure type: unspecified Heart failure chronicity: unspecified Qualified Code(s): I50.9 - Heart failure, unspecified Condition: Stable Disposition: HOME, SELF-CARE Additional Instructions: rest, continue current meds, increase Lasix to twice a day for the next 3 days, return if worse Referrals: RACHEL MEDRANO FNP [Primary Care Provider] - Follow up as needed
[2019-05-01] MEDS ORDERED: FUROSEMIDE INJ/PF 40 MG/4 ML SDV IM ONE (14:54)
[2019-05-01 15:47] VITALS: BP 132/95
--- NOTE | 2019-05-01 19:12 | EKG REPORT ---
SEVERITY:- ABNORMAL ECG - ATRIAL FIBRILLATION BORDERLINE T ABNORMALITIES, ANT-LAT LEADS : Confirmed by: Cathy Bacon MD 01-May-2019 19:11:52
== END 2019-05-01 15:58 | disposition home or self-care (01) ==
LOC: ER 12:17
DX: I11.0 Hypertensive heart disease with heart failure (principal); I50.9 Heart failure, unspecified; J90 Pleural effusion, not elsewhere classified; I48.91 Unspecified atrial fibrillation; I25.10 Atherosclerotic heart disease of native coronary artery without angina pectoris; I25.2 Old myocardial infarction; J44.9 Chronic obstructive pulmonary disease, unspecified; Z99.81 Dependence on supplemental oxygen; Z79.899 Other long term (current) drug therapy; Z95.5 Presence of coronary angioplasty implant and graft; Z88.8 Allergy status to other drugs, medicaments and biological substances; Z88.1 Allergy status to other antibiotic agents; Z88.0 Allergy status to penicillin; Z88.2 Allergy status to sulfonamides; Z88.5 Allergy status to narcotic agent; Z82.49 Family history of ischemic heart disease and other diseases of the circulatory system
CPT/HCPCS: 93005; 99285; 96372; 36415; 85025; 80053; 83880; 71045; 93010; J1940

== ENCOUNTER 2019-05-02 18:51 | Inpatient (IN) | payer OTHER, MEDICARE ==
[2019-05-02] MEDS ORDERED: METHYLPREDNISOLONE INJ 125 MG/2 ML SDV IV ONE (19:16)
[2019-05-02] MEDS ORDERED: IPRATROPIUM/ALBUTEROL 0.5-2.5 MG/3 ML AMPUL NEB ONE (19:16)
[2019-05-02] MEDS ORDERED: ALBUTEROL SULFATE 0.083% NEB 2.5 MG/3 ML AMPUL NEB ONE (19:16)
--- NOTE | 2019-05-02 19:19 | ER Document Report ---
ED General - General Chief Complaint: Cold Symptoms Stated Complaint: DIFFICULTY BREATHING Time Seen by Provider: 05/02/19 18:57 TRAVEL OUTSIDE OF THE [place] IN LAST 30 DAYS: No - HPI Notes: No patient is somewhat of a poor historian. Patient indicates she is had several days of increasing shortness of breath. She was evaluated in the emergency department yesterday, underwent extensive work-up, ultimately said she want to go home, received an intramuscular injection of Lasix and was discharged with the presumption of some worsening heart failure. She is uncertain if she has had fever, denies any active chest pain. No real orthopnea, has had chronic lower extremity edema. She does continue to smoke cigarettes. Moderate intensity, gradual onset, nonradiating. She is coughing but "it goes up into her throat" and she does not describe it further. No other modifying factors, no other associated symptoms, no other provocative or palliative factors. - Related Data Allergies/Adverse Reactions: prednisone [Prednisone] Allergy (Unknown, Verified 04/10/19 17:23) cephalexin [Cephalexin] Allergy (Verified 04/10/19 17:23) Cephalosporins Allergy (Verified 04/10/19 17:23) ciprofloxacin [From Cipro] Allergy (Verified 04/10/19 17:23) cortisone [Cortisone] Allergy (Verified 04/10/19 17:23) Penicillins Allergy (Verified 04/10/19 17:23) phenazopyridine [Phenazopyridine] Allergy (Verified 04/10/19 17:23) Sulfa (Sulfonamide Antibiotics) Allergy (Verified 04/10/19 17:23) sulfamethoxazole [From Bactrim] Allergy (Verified 04/10/19 17:23) tramadol HCl [From Ultram] Allergy (Verified 04/10/19 17:23) trimethoprim [From Bactrim] Allergy (Verified 04/10/19 17:23) Home Medications: tylenol arthritis. oxybutynin. dexilant. aspirin. losartan. hydralazine. lialda. metoprolol. atorvastatin. eliquis. fu rosemide. calcitriol Past Medical History - Social History Smoking Status: Current Some Day Smoker Family History: CAD - Father, COPD - Brother, CVA - Mother, DM, Hypertension, Malignancy - 1 sister colon cancer and another sister lung cancer Patient has suicidal ideation: No Patient has homicidal ideation: No - Past Medical History Cardiac Medical History: Reports: Hx Atrial Fibrillation, Hx Congestive Heart Failure, Hx Coronary Artery Disease - Has had a couple of stents placed in her arteries., Hx Heart Attack - 10/2014, Hx Hypercholesterolemia, Hx Hypertension Denies: Hx DVT, Hx Pulmonary Embolism Pulmonary Medical History: Reports: Hx Asthma, Hx COPD, Hx Pneumonia Neurological Medical History: Reports: 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 Denies: Hx Seizures Endocrine Medical History: Reports: Hx Graves' Disease. Denies: Hx Diabetes Mellitus Type 1, Hx Diabetes Mellitus Type 2, Hx Hyperthyroidism, Hx Hy pothyroidism Renal/ Medical History: Reports: Hx Renal Insufficiency. Denies: Hx Peritoneal Dialysis Malignancy Medical History: Reports: Hx Skin Cancer GI Medical History: Reports: Hx Crohn's Disease, Hx Gastroesophageal Reflux Disease, Hx Hiatal Hernia, Hx Ulcer, Hx Ulcerative Colitis, Hx Colonoscopy. Denies: Hx Cirrhosis, Hx Hepatitis Musculoskeletal Medical History: Reports Hx Arthritis, Denies Hx Gout Skin Medical History: Denies Hx Eczema, Denies Hx Psoriasis Psychiatric Medical History: Reports: Hx Depression Infectious Medical History: Denies: Hx Hepatitis Past Surgical History: Reports: Hx Abdominal Surgery - hernia repair with mesh, Hx Cardiac Catheterization - with stents, Hx Cardiac Surgery - Stent, Hx Coronary Stent - x2, Hx Umbilical Hernia, Other - Skin cancer surgery - Immunizations Hx Diphtheria, Pertussis, Tetanus Vaccination: Yes Hx Pneumococcal Vaccination: 07/08/11 Review of Systems - Review of Systems Notes: Review of systems as in the history of present illness, otherwise negative x 10 systems. Physical Exam - Notes Notes: General: Well developed . HEENT: Normocephalic, atraumatic. Pupils equal round reactive to light. No JVD. Chest: No trauma. Respiratory: Diminished breath sounds with end expiratory wheezing Cardiac: Regular rhythm. No murmurs or gallops. Abdomen: Soft, benign. Nondistended. Nontender. Back: No asymmetry or gross abnormality. Motor: Grossly normal power and tone. Neurologic: Alert, nonfocal. Cranial nerves II-12 are intact. Sensation intact. Vascular: Well perfused. Normal peripheral pulses. Skin: No petechiae or purpura. Course - Re-evaluation Re-evalutation: 05/02/19 19:18 83-year-old female with dyspnea, signs of bronchospasm in the after mentioned sy mptoms. Broad differential diagnosis includes emphysema/COPD exacerbation, heart failure with decompensation, pneumonia, or make sure thereof. Plan proceed with broad laboratory evaluation, cardiac BNP, EKG, biomarkers, x-ray, reevaluate. 05/02/19 22:41 Labs reviewed, CBC unremarkable, chemistries show chronic renal insufficiency which is mild. Cardiac BNP is markedly elevated. Chest x-ray read as showing air bronchograms and bilateral pneumonia with effusion, right greater than left. Patient presentation is somewhat mixed, her bronchospasm is resolved with bronchodilators. She has underlying A. fib with RVR that is now in the 120s and she is receiving IV Cardizem. May be a mixed picture with pneumonia superimposed on heart failure with some bronchospasm. Given her prior hospitalization within the last month, will treat for healthcare associated pneumonia. Rate control with IV diltiazem. Otherwise blood pressures been in the 120s without much room for preload reduction. Will admit to the hospital service for continued work-up management and evaluation. Patient had substantial improvement with IV diltiazem, rate is in the mid 80s. - Laboratory Result Diagrams: 05/02/19 19:57 05/02/19 19:57 Laboratory results interpreted by me: 05/02/19 05/02/19 05/02/19 19:57 19:57 19:57 Hgb 9.5 L Hct 30.6 L MCV 79 L MCH 24.5 L MCHC 31.1 L RDW 20.3 H VBG HCO3 Carbon Dioxide 34 H BUN 38 H Creatinine 1.30 H Est GFR ( Amer) 47 L Est GFR (MDRD) Non-Af 39 L NT-Pro-B Natriuret Pep 8960 H Total Protein 5.7 L Albumin 3.4 L 05/02/19 19:57 Hgb Hct MCV MCH MCHC RDW VBG HCO3 33.0 H Carbon Dioxide BUN Creatinine Est GFR ( Amer) Est GFR (MDRD) Non-Af NT-Pro-B Natriuret Pep Total Protein Albumin - EKG Interpretation by De EKG shows normal: [place], QRS Complexes. abnormal: Intervals - Noted to have atrial fibrillation with rapid ventricular response, nonspecific ST-T changes. Discharge - Discharge Clinical Impression: Pneumonia Qualifiers: Pneumonia type: due to unspecified organism Laterality: unspecified laterality Lung location: unspecified part of lung Qualified Code(s): J18.9 - Pneumonia, unspecified organism Atrial fibrillation Qualifiers: Atrial fibrillation type: unspecified Qualified Code(s): I48.91 - Unspecified atrial fibrillation Condition: Serious Disposition: ADMITTED INPATIENT Admitting Provider: Patrick (Hospitalist) Unit Admitted: [facility]
[2019-05-02] MEDS ORDERED: ONDANSETRON HCL INJ/PF 4 MG/2 ML SDV ONE (19:38)
--- NOTE | 2019-05-02 19:50 | RADIOLOGY REPORT (SQ) ---
EXAM DESCRIPTION: CHEST SINGLE VIEW COMPLETED DATE/TIME: 05/02/2019 7:24 pm REASON FOR STUDY: DYSPNEA COMPARISON: 05/01/2019. EXAM PARAMETERS: NUMBER OF VIEWS: One view. TECHNIQUE: Single frontal radiographic view of the chest acquired. RADIATION DOSE: NA LIMITATIONS: None. FINDINGS: LUNGS AND PLEURA: There is evidence of consolidation at the right lung base with right ple ural effusion. . There is infiltrate left retrocardiac region with air bronchograms identified. Le ft pleural effusion identified. MEDIASTINUM AND HILAR STRUCTURES: No masses. Contour normal. HEART AND VASCULAR STRUCTURES: Borderline cardiac size with atherosclerotic uncoiling thoracic aorta. The pulmonary vasculature is normal. BONES: No acute findings. HARDWARE: None in the chest. OTHER: Chest leads in place. . IMPRESSION: Changes consistent with bibasilar consolidation or infiltrates with pleural effusions, r ight greater than left. Cardiomegaly. TECHNICAL DOCUMENTATION: JOB ID: [id number] [employer]- All Rights Reserved Reading location - IP/workstation name: [email or web address]
[2019-05-02] MEDS ORDERED: ONDANSETRON HCL INJ/PF 4 MG/2 ML SDV IV ONE (20:02)
[2019-05-02 20:22] LABS: ABSOLUTE EOSINOPHILS # (AUTO) 0.1 10^3/uL (0.0-0.6); ABSOLUTE LYMPHOCYTES (AUTO) 1.2 10^3/uL (0.5-4.7); ABSOLUTE MONOCYTES (AUTO) 0.3 10^3/uL (0.1-1.4); ABSOLUTE NEUT (AUTO) 3.7 10^3/uL (1.7-8.2); BASOPHILS % (AUTO) 0.9 % (0-2); HEMATOCRIT 30.6 % (36.0-47.0); HEMOGLOBIN 9.5 g/dL (12.0-15.5); LYMPHOCYTES % (AUTO) 22.4 % (13-45); MEAN CORPUSCULAR HEMOGLOBIN 24.5 pg (27.0-33.4); MEAN CORPUSCULAR HGB CONC 31.1 g/dL (32.0-36.0); MEAN CORPUSCULAR VOLUME 79 fl (80-97); MONOCYTES % (AUTO) 5.4 % (3-13); PLATELET COUNT 217 10^3/uL (150-450); RED BLOOD COUNT 3.88 10^6/uL (3.72-5.28); RED CELL DISTRIBUTION WIDTH 20.3 % (11.5-14.0); SEGMENTED NEUTROPHILS % (AUTO) 70.3 % (42-78); TOTAL CELLS COUNTED % (AUTO) 100 %; WHITE BLOOD COUNT 5.2 10^3/uL (4.0-10.5)
[2019-05-02 20:23] LABS: VENOUS BLOOD BASE EXCESS 5.9 mmol/L; VENOUS BLOOD PCO2 61.8 mmHg (35-63); VENOUS BLOOD PH 7.35 (7.30-7.42)
[2019-05-02 20:38] LABS: INTERNATIONAL RATION (INR) 1.19; PROTHROMBIN TIME 15.2 SEC (11.4-15.4)
[2019-05-02] MEDS ORDERED: VANCOMYCIN HCL INJ 1000 MG VIAL IV ONE (20:46)
[2019-05-02] MEDS ORDERED: CEFEPIME 2 GM/D5W RTU 2 GM/50 ML RTUPB IV ONE (20:46)
[2019-05-02 20:55] LABS: ALBUMIN 3.4 g/dL (3.5-5.0); ALKALINE PHOSPHATASE 60 U/L (38-126); ANION GAP 6 (5-19); ASPARTATE AMINO TRANSFERASE 21 U/L (14-36); BILIRUBIN,DIRECT 0.2 mg/dL (0.0-0.4); BILIRUBIN,TOTAL 0.3 mg/dL (0.2-1.3); BLOOD UREA NITROGEN 38 mg/dL (7-20); CALCIUM 9.2 mg/dL (8.4-10.2); CARBON DIOXIDE 34 mmol/L (22-30); CHLORIDE 103 mmol/L (98-107); GLUCOSE 104 mg/dL (75-110); POTASSIUM 4.9 mmol/L (3.6-5.0); TOTAL PROTEIN 5.7 g/dL (6.3-8.2)
[2019-05-02 21:06] LABS: TROPONIN I 0.017 ng/mL
--- NOTE | 2019-05-02 21:29 | EKG REPORT ---
SEVERITY:- ABNORMAL ECG - ATRIAL FIBRILLATION VENTRICULAR PREMATURE COMPLEX PROBABLE LVH WITH SECONDARY REPOL ABNRM : Confirmed by: Cathy Bacon MD 02-May-2019 21:28:07
[2019-05-02] MEDS ORDERED: DILTIAZEM HCL INJ 25 MG/5 ML VIAL IV ONE (21:51)
[2019-05-02] MEDS ORDERED: DILTIAZEM HCL/D5W 125 MG/125 ML RTUINJ IV PRN (21:52)
[2019-05-02] MEDS ORDERED: MAGNESIUM HYDROXIDE SUSP 30 ML UDCUP PO ONE (21:54)
[2019-05-02] MEDS ORDERED: HEPARIN SOD (PORCINE) 5,000 UNIT/ML 1 ML VIAL SUBCUT SCH (22:00)
[2019-05-02] MEDS ORDERED: METOPROLOL TARTRATE PF/INJ 5 MG/5 ML SDV IV ONE (22:48)
[2019-05-02] MEDS ORDERED: DILTIAZEM HCL 90 MG TABLET PO ONE (23:00)
--- NOTE | 2019-05-02 23:46 | RADIOLOGY REPORT (SQ) ---
EXAM DESCRIPTION: [facility]: XR ABDOMEN 2 VIEWS SUPINE ERECT Views: 2 CLINICAL HISTORY: 83 years Female, pain COMPARISON: CT 04/10/2019. Chest radiograph 05/02/2019. FINDINGS: Supine and erect AP abdomen: No bowel distention. No pneumatosis. No free air. Small right pleural effusion is again noted. Chronic degenerative changes are again noted in the lumbar spine. IMPRESSION: 1. No acute abdominal findings
[2019-05-03] MEDS ORDERED: LACTULOSE SYRUP 20 GM/30 ML UDCUP PO ONE (00:10)
[2019-05-03] MEDS: LEVALBUTEROL HCL NEB 1.25 MG/3 ML AMPUL NEB SCH ×3 (00:20→15:02)
[2019-05-03 00:43] LABS: ABSOLUTE RETICS # 0.033 10^6/uL (0.028-0.122); RETICULOCYTE COUNT (AUTO) 0.86 % (0.66-2.85)
[2019-05-03] MEDS ORDERED: INFLUENZA QUAD (6MOS+) 2019-20 VAC 0.5 ML SYR IM ONE (00:47)
[2019-05-03 00:57] LABS: CREATINE KINASE 29 U/L (30-135); IRON(TIBC) 31.6 ug/dL (37-170)
[2019-05-03] MEDS ORDERED: DILTIAZEM HCL 30 MG TABLET ONE (01:04)
[2019-05-03] MEDS ORDERED: DILTIAZEM HCL 60 MG TABLET ONE (01:06)
--- NOTE | 2019-05-03 05:17 | PDOC H&P ---
History of Present Illness Admission Date/PCP: 05/02/19 22:04 CARMELA RESENDIZ Patient complains of: Shortness of breath History of Present Illness: CINTHYA DANIELLE is a 83 year old female with a past medical history of oxygen dependent COPD with tobacco dependence, coronary artery disease, dyslipidemia, hypertension, ulcerative colitis, depression, atrial fibrillation on Eliquis. She presents with several days of rhinorrhea and intermittently productive cough with shortness of breath prompting evaluation emergency room 48 hours ago where she was with similar symptoms but left AGAINST MEDICAL ADVICE. In the emergency room she is found to have tachypnea and a x-ray with small right-sided pleural effusion. She is also in A. fib with RVR and referred to the hospitalist for admission. Patient admits poor compliance with medication lifestyle. Denies chest pain nausea vomiting. Past Medical History Cardiac Medical History: Reports: Atrial Fibrillation, Congestive Heart Failure, Coronary Artery Disease - Has had a couple of stents placed in her arteries., Myocardial Infarction - 10/2014, Hyperlipidema, Hypertension Denies: DVT, Pulmonary Embolism Pulmonary Medical History: Reports: Asthma, Chronic Obstructive Pulmonary Disease (COPD), Pneumonia Neurological Medical History: Denies: Seizures Endocrine Medical History: Denies: Diabetes Mellitus Type 1, Diabetes Mellitus Type 2, Hyperthyroidism, Hypothyroidism Malignancy Medical History: Reports: Skin Cancer GI Medical History: Reports: Crohn's Disease, Gastroesophageal Reflux Disease, Hiatal Hernia, Ulcerative Colitis Denies: Cirrhosis, Hepatitis Musculoskeltal Medical History: Reports: Arthritis Denies: Gout Skin Medical History: Denies: Eczema, Psoriasis Psychiatric Medical History: Reports: Depression, Tobacco Dependency Hematology: Reports: Anemia - Chronic Denies: Bleeding Tendencies Past Surgical History Past Surgical History: Reports: Cardiac Catheterization - with stents, Coronary Stent - x2, Other - Skin cancer surgery Social History Information Source: Patient, [facility] Records Smoking Status: Current Every Day Smoker Electronic Cigarette use?: No Number of Years Smokin Last Time Smoked: 05/02/2019 Frequency of Alcohol Use: None Hx Recreational Drug Use: No Drugs: None Hx Prescription Drug Abuse: No - Advance Directive Resuscitation Status: Full Code Family History Family History: CAD - Father, COPD - Brother, CVA - Mother, DM, Hypertension, Malignancy - 1 sister colon cancer and another sister lung cancer Parental Family History Reviewed: Yes Children Family History Reviewed: Yes Sibling(s) Family History Reviewed.: Yes Medication/Allergy Home Medications: Albuterol Sulfate [Proair HFA Inhalation Aerosol 8.5 gm MDI] 2 puff IH Q6HP PRN 04/11/19 Atorvastatin Calcium [Lipitor 20 mg Tablet] 20 mg PO QHS 04/11/19 Duloxetine HCl [Cymbalta 20 mg Capsule.dr] 20 mg PO DAILY 04/11/19 Hydralazine HCl [Apresoline 50 mg Tablet] 50 mg PO TID 04/11/19 Losartan Potassium [Cozaar 100 mg Tablet] 100 mg PO DAILY 04/11/19 Metoprolol Tartrate [Lopressor 50 mg Tablet] 50 mg PO Q12 04/11/19 Ondansetron HCl [Zofran 8 mg Tablet] 8 mg PO Q8HP PRN 04/11/19 Oxybutynin Chloride [Oxybutynin Chloride ER] 10 mg PO QHS 04/11/19 Apixaban [Eliquis 5 mg Tablet] 5 mg PO BID tablet 04/13/19 Diltiazem HCl [Cardizem Cd 120 mg Capsule] 120 mg PO DAILY cap.sr.24h 04/13/19 Allergies/Adverse Reactions: prednisone [Prednisone] Allergy (Unknown, Verified 04/10/19 17:23) cephalexin [Cephalexin] Allergy (Verified 04/10/19 17:23) Cephalosporins Allergy (Verified 04/10/19 17:23) ciprofloxacin [From Cipro] Allergy (Verified 04/10/19 17:23) cortisone [Cortisone] Allergy (Verified 04/10/19 17:23) Penicillins Allergy (Verified 04/10/19 17:23) phenazopyridine [Phenazopyridine] Allergy (Verified 04/10/19 17:23) Sulfa (Sulfonamide Antibiotics) Allergy (Verified 04/10/19 17:23) sulfamethoxazole [From Bactrim] Allergy (Verified 04/10/19 17:23) tramadol HCl [From Ultram] Allergy (Verified 04/10/19 17:23) trimethoprim [From Bactrim] Allergy (Verified 04/10/19 17:23) Review of Systems Constitutional: PRESENT: as per HPI, fatigue, weakness. ABSENT: fever(s), headache(s), night sweats Eyes: ABSENT: visual disturbances Ears: ABSENT: hearing changes Cardiovascular: PRESENT: dyspnea on exertion. ABSENT: chest pain, edema, orthropnea, palpitations Respiratory: PRESENT: as per HPI, cough, dyspnea, sputum Gastrointestinal: ABSENT: abdominal pain, constipation, diarrhea, hematemesis, hematochezia, nausea, vomiting Genitourinary: ABSENT: dysuria, hematuria Musculoskeletal: ABSENT: joint swelling Integumentary: ABSENT: rash, wounds Neurological: ABSENT: abnormal gait, abnormal speech, confusion, dizziness, focal weakness, syncope Psychiatric: ABSENT: anxiety, depression, homidical ideation, suicidal ideation Endocrine: ABSENT: cold intolerance, heat intolerance, polydipsia, polyuria Hematologic/Lymphatic: ABSENT: easy bleeding, easy bruising Physical Exam Vital Signs: Temp Pulse Resp BP Pulse Ox 97.7 F 65 20 95/41 L 97 05/03/19 03:59 05/03/19 03:59 05/03/19 03:59 05/03/19 03:59 05/03/19 03:59 Intake & Output 05/01/19 05/02/19 05/03/19 11:59 11:59 11:59 Intake Total 50 Output Total 0 Balance 50 Weight 64.7 kg General appearance: PRESENT: cooperative, mild distress, thin. ABSENT: disheveled Head exam: PRESENT: atraumatic, normocephalic Eye exam: PRESENT: conjunctiva pink, EOMI, PERRLA. ABSENT: scleral icterus Ear exam: PRESENT: normal external ear exam Mouth exam: PRESENT: moist, tongue midline Neck exam: ABSENT: carotid bruit, JVD, lymphadenopathy, thyromegaly Respiratory exam: PRESENT: accessory muscle use, crackles, rales, symmetrical, tachypnea Cardiovascular exam: PRESENT: irregular rhythm Pulses: PRESENT: normal dorsalis pedis pul Vascular exam: PRESENT: normal capillary refill GI/Abdominal exam: PRESENT: normal bowel sounds, soft. ABSENT: distended, guarding, mass, organolmegaly, rebound, tenderness Rectal exam: PRESENT: deferred Extremities exam: PRESENT: full ROM. ABSENT: calf tenderness, clubbing, pedal edema Neurological exam: PRESENT: alert, awake, oriented to person, oriented to place, oriented to time, oriented to situation, CN II-XII grossly intact. ABSENT: motor sensory deficit Psychiatric exam: PRESENT: appropriate affect, normal mood. ABSENT: homicidal ideation, suicidal ideation Skin exam: PRESENT: dry, intact, warm. ABSENT: cyanosis, rash Results Laboratory Results: 05/02/19 19:57 05/02/19 19:57 05/02/19 05/02/19 05/02/19 19:57 19:57 19:57 WBC 5.2 RBC 3.88 Hgb 9.5 L Hct 30.6 L MCV 79 L MCH 24.5 L MCHC 31.1 L RDW 20.3 H Plt Count 217 Seg Neutrophils % 70.3 Retic Count (auto) VBG pH VBG pCO2 VBG HCO3 VBG Base Excess Sodium 142.6 Potassium 4.9 Chloride 103 Carbon Dioxide 34 H Anion Gap 6 BUN 38 H Creatinine 1.30 H Est GFR ( Amer) 47 L Glucose 104 Lactic Acid 1.0 Calcium 9.2 Magnesium Iron TIBC % Saturation Ferritin Total Bilirubin 0.3 AST 21 Alkaline Phosphatase 60 Total Protein 5.7 L Albumin 3.4 L Vitamin B12 Folate 05/02/19 05/02/19 05/02/19 19:57 19:57 19:57 WBC RBC Hgb Hct MCV MCH MCHC RDW Plt Count Seg Neutrophils % Retic Count (auto) VBG pH 7.35 VBG pCO2 61.8 VBG HCO3 33.0 H VBG Base Excess 5.9 Sodium Potassium Chloride Carbon Dioxide Anion Gap BUN Creatinine Est GFR ( Amer) Glucose Lactic Acid Calcium Magnesium 1.7 Iron 31.6 L TIBC 406 % Saturation 8 Ferritin 15.60 Total Bilirubin AST Alkaline Phosphatase Total Protein Albumin Vitamin B12 557.0 Folate 14.90 05/02/19 19:57 WBC RBC Hgb Hct MCV MCH MCHC RDW Plt Count Seg Neutrophils % Retic Count (auto) 0.86 VBG pH VBG pCO2 VBG HCO3 VBG Base Excess Sodium Potassium Chloride Carbon Dioxide Anion Gap BUN Creatinine Est GFR ( Amer) Glucose Lactic Acid Calcium Magnesium Iron TIBC % Saturation Ferritin Total Bilirubin AST Alkaline Phosphatase Total Protein Albumin Vitamin B12 Folate 05/02/19 05/02/19 05/03/19 19:57 19:57 01:34 Creatine Kinase 29 L Troponin I 0.017 0.016 NT-Pro-B Natriuret Pep 8960 H Impressions: Abdomen X-Ray 05/02/19 00:00 IMPRESSION: 1. No acute abdominal findings Chest X-Ray 05/02/19 19:11 IMPRESSION: Changes consistent with bibasilar consolidation or infiltrates with pleural effusions, right greater than left. Cardiomegaly. Assessment and Plan - Diagnosis (1) Obstructive chronic bronchitis with exacerbation Is this a current diagnosis for this admission?: Yes Plan: Complicated by persistent tobacco dependence. Flonase, Xopenex, Atrovent. Flu tter valve (2) Atrial fibrillation with rapid ventricular response Is this a current diagnosis for this admission?: Yes Plan: Secondary to #1, Cardizem (3) Acute exacerbation of CHF (congestive heart failure) Qualifiers: Heart failure type: unspecified Qualified Code(s): I50.9 - Heart failure, unspecified Is this a current diagnosis for this admission?: Yes Plan: Secondary to #2, optimize rate control, PRN BiPAP and Lasix (4) Anemia Qualifiers: Anemia type: unspecified type Qualified Code(s): D64.9 - Anemia, unspecified Is this a current diagnosis for this admission?: Yes Plan: Contributing factor to shortness of breath, likely iron deficient, follow-up anemia labs - Time Time Spent with patient: 25-34 minutes - Inpatient Certification Medical Necessity: Need Close Monitoring Due to Risk of Patient Decompensation
[2019-05-03] MEDS ORDERED: DILTIAZEM HCL 90 MG TABLET PO SCH (06:00)
[2019-05-03] MEDS: DILTIAZEM HCL 30 MG TABLET PO SCH ×3 (06:11→21:19)
[2019-05-03] MEDS: GUAIFENESIN SYRP 200 MG/10 ML UDC PO PRN ×2 (06:12→10:27)
[2019-05-03 08:46] LABS: ABSOLUTE LYMPHOCYTES (AUTO) 0.4 10^3/uL (0.5-4.7); ABSOLUTE MONOCYTES (AUTO) 0.1 10^3/uL (0.1-1.4); ABSOLUTE NEUT (AUTO) 3.1 10^3/uL (1.7-8.2); BASOPHILS % (AUTO) 0.1 % (0-2); HEMATOCRIT 27.5 % (36.0-47.0); HEMOGLOBIN 8.6 g/dL (12.0-15.5); LYMPHOCYTES % (AUTO) 10.6 % (13-45); MEAN CORPUSCULAR HEMOGLOBIN 24.6 pg (27.0-33.4); MEAN CORPUSCULAR HGB CONC 31.2 g/dL (32.0-36.0); MEAN CORPUSCULAR VOLUME 79 fl (80-97); MONOCYTES % (AUTO) 1.5 % (3-13); PLATELET COUNT 187 10^3/uL (150-450); RED BLOOD COUNT 3.48 10^6/uL (3.72-5.28); RED CELL DISTRIBUTION WIDTH 20.6 % (11.5-14.0); SEGMENTED NEUTROPHILS % (AUTO) 87.8 % (42-78); TOTAL CELLS COUNTED % (AUTO) 100 %; WHITE BLOOD COUNT 3.6 10^3/uL (4.0-10.5)
[2019-05-03 09:12] LABS: ANION GAP 8 (5-19); BLOOD UREA NITROGEN 39 mg/dL (7-20); CALCIUM 9.3 mg/dL (8.4-10.2); CARBON DIOXIDE 30 mmol/L (22-30); CHLORIDE 103 mmol/L (98-107); CREATINE KINASE 28 U/L (30-135); GLUCOSE 147 mg/dL (75-110); POTASSIUM 4.7 mmol/L (3.6-5.0)
[2019-05-03] MEDS: PREDNISONE 20 MG TABLET PO SCH ×2 (10:17→17:29)
[2019-05-03] MEDS: AZITHROMYCIN 250 MG TABLET PO SCH (10:26)
[2019-05-03] MEDS: DOCUSATE SODIUM 100 MG CAPSULE PO SCH ×2 (10:26→17:29)
[2019-05-03] MEDS: APIXABAN 5 MG TABLET PO SCH ×2 (10:27→17:29)
[2019-05-03] MEDS: FLUTICASONE NASAL SPRAY 50 MCG/SPRY 120 SPRAY/16 GM NASL SCH (10:27)
[2019-05-03] MEDS ORDERED: CEFTRIAXONE SODIUM 1,000 MG in DEXTROSE 5%-WATER 25 ML IV SCH (14:00)
[2019-05-03] MEDS: FERROUS SULFATE 325 MG TABLET PO SCH (14:35)
[2019-05-03] MEDS: CEFTRIAXONE 1 GM/D5W RTU 1 GM/50 ML RTUPB IV SCH (14:35)
--- NOTE | 2019-05-03 14:43 | EKG REPORT ---
SEVERITY:- NORMAL ECG - SINUS RHYTHM : Confirmed by: Cathy Bacon MD 03-May-2019 14:42:51
[2019-05-03] MEDS ORDERED: FUROSEMIDE 20 MG TABLET PO ONE (19:45)
[2019-05-03] MEDS: ATORVASTATIN CALCIUM 20 MG TABLET PO SCH (21:19)
[2019-05-03] MEDS: HYDRALAZINE HCL 50 MG TABLET PO SCH (21:19)
[2019-05-03] MEDS: METOPROLOL TARTRATE 50 MG TABLET PO SCH (21:19)
[2019-05-03] MEDS: IPRATROPIUM/ALBUTEROL 0.5-2.5 MG/3 ML AMPUL NEB PRN (21:37)
[2019-05-03] MEDS ORDERED: ACETAMINOPHEN 325 MG TABLET PO SCH (22:00)
[2019-05-04] MEDS: LEVALBUTEROL HCL NEB 1.25 MG/3 ML AMPUL NEB SCH ×3 (00:07→15:56)
[2019-05-04] MEDS: GUAIFENESIN SYRP 200 MG/10 ML UDC PO PRN ×3 (01:48→20:53)
[2019-05-04] MEDS: OXYBUTYNIN CHLORIDE 5 MG TABLET PO SCH ×2 (05:23→21:04)
[2019-05-04] MEDS: MESALAMINE 400 MG CAPSULE.DR PO SCH ×2 (05:23→21:04)
[2019-05-04] MEDS: FLUTICASONE NASAL SPRAY 50 MCG/SPRY 120 SPRAY/16 GM NASL SCH ×3 (05:24→21:04)
[2019-05-04] MEDS: DILTIAZEM HCL 30 MG TABLET PO SCH (05:51)
[2019-05-04] MEDS: HYDRALAZINE HCL 50 MG TABLET PO SCH ×3 (05:52→21:04)
--- NOTE | 2019-05-04 09:41 | PDOC PROGRESS REPORT ---
Subjective Progress Note for:: 05/03/19 Subjective:: Patient complaining of some shortness of breath. Has not done much ambulation. Still having significant cough. Admits to not taking Lasix twice a day at home because it makes her urinate too much. Denies any chest pain. Reason For Visit: SOB,AFIB,CHF Physical Exam Vital Signs: Temp Pulse Resp BP Pulse Ox 97.6 F 78 18 161/98 H 91 L 05/04/19 07:42 05/04/19 07:42 05/04/19 07:42 05/04/19 07:42 05/04/19 07:42 Intake & Output 05/03/19 05/04/19 05/05/19 06:59 06:59 06:59 Intake Total 50 1010 Output Total 0 Balance 50 1010 Weight 67.1 kg 69.8 kg General appearance: PRESENT: no acute distress, cooperative, thin Eye exam: PRESENT: EOMI Neck exam: ABSENT: tracheal deviation Respiratory exam: PRESENT: rhonchi, wheezes - Significant extremity wheezing Cardiovascular exam: PRESENT: RRR, +S1, +S2 GI/Abdominal exam: PRESENT: normal bowel sounds, soft Results Laboratory Results: 05/03/19 08:20 05/03/19 08:20 05/02/19 05/02/19 05/03/19 19:57 19:57 01:34 Creatine Kinase 29 L Troponin I 0.017 0.016 NT-Pro-B Natriuret Pep 8960 H 05/03/19 05/03/19 05/03/19 08:20 08:20 14:08 Creatine Kinase 28 L 24 L Troponin I 0.015 NT-Pro-B Natriuret Pep 05/03/19 14:08 Creatine Kinase Troponin I 0.015 NT-Pro-B Natriuret Pep Impressions: Abdomen X-Ray 05/02/19 00:00 IMPRESSION: 1. No acute abdominal findings Chest X-Ray 05/02/19 19:11 IMPRESSION: Changes consistent with bibasilar consolidation or infiltrates with pleural effusions, right greater than left. Cardiomegaly. Assessment and Plan - Diagnosis (1) COPD with acute exacerbation Is this a current diagnosis for this admission?: Yes Plan: Levalbuterol every 8 hours standing PRN nebs Prednisone and azithromycin Continue home oxygen 3 L nasal cannula We will see how patient performs with 6-minute walk today (2) Iron deficiency anemia Is this a current diagnosis for this admission?: Yes Plan: Started on ferrous sulfate. Outpatient follow-up for further evaluation. (3) Acute exacerbation of CHF (congestive heart failure) Qualifiers: Heart failure type: unspecified Qualified Code(s): I50.9 - Heart failure, unspecified Is this a current diagnosis for this admission?: Yes Plan: Secondary to noncompliance with recommended Lasix Exacerbation is mild so will simply with resume twice daily dosing of Lasix (4) Atrial fibrillation with rapid ventricular response Is this a current diagnosis for this admission?: Yes Plan: Continue metoprolol Continue diltiazem added on admission (5) Community acquired bacterial pneumonia Is this a current diagnosis for this admission?: Yes Plan: Azithromycin and ceftriaxone Blood cultures sent (6) Acute on chronic respiratory failure with hypoxia Is this a current diagnosis for this admission?: Yes Plan: Continue nasal cannula 3-4 L - Time Time Spent with patient: 15-24 minutes
--- NOTE | 2019-05-04 09:48 | PDOC PROGRESS REPORT ---
Subjective Progress Note for:: 05/04/19 Subjective:: Patient had episode of acute air hunger this morning. Improved with breathing treatment. Had conversation with patient's son in the choroidal who states that patient still actively smokes despite her lung condition and has not been taking her Lasix as prescribed. Reason For Visit: SOB,AFIB,CHF Physical Exam Vital Signs: Temp Pulse Resp BP Pulse Ox 97.6 F 78 18 161/98 H 91 L 05/04/19 07:42 05/04/19 07:42 05/04/19 07:42 05/04/19 07:42 05/04/19 07:42 Intake & Output 05/03/19 05/04/19 05/05/19 06:59 06:59 06:59 Intake Total 50 1010 Output Total 0 Balance 50 1010 Weight 67.1 kg 69.8 kg General appearance: PRESENT: no acute distress, cooperative Head exam: PRESENT: normocephalic Eye exam: PRESENT: EOMI Mouth exam: PRESENT: moist Neck exam: ABSENT: JVD Respiratory exam: PRESENT: rhonchi, wheezes - Wheezing improved from yesterday Cardiovascular exam: PRESENT: RRR - Sinus rhythm, +S1, +S2 GI/Abdominal exam: PRESENT: normal bowel sounds, soft. ABSENT: tenderness Extremities exam: ABSENT: joint swelling Results Laboratory Results: 05/03/19 08:20 05/03/19 08:20 05/02/19 05/02/19 05/03/19 19:57 19:57 01:34 Creatine Kinase 29 L Troponin I 0.017 0.016 NT-Pro-B Natriuret Pep 8960 H 05/03/19 05/03/19 05/03/19 08:20 08:20 14:08 Creatine Kinase 28 L 24 L Troponin I 0.015 NT-Pro-B Natriuret Pep 05/03/19 14:08 Creatine Kinase Troponin I 0.015 NT-Pro-B Natriuret Pep Impressions: Abdomen X-Ray 05/02/19 00:00 IMPRESSION: 1. No acute abdominal findings Chest X-Ray 05/02/19 19:11 IMPRESSION: Changes consistent with bibasilar consolidation or infiltrates with pleural effusions, right greater than left. Cardiomegaly. Assessment and Plan - Diagnosis (1) COPD with acute exacerbation Is this a current diagnosis for this admission?: Yes Plan: Levalbuterol every 8 hours standing PRN nebs Prednisone and azithromycin Continue home oxygen 3 L nasal cannula We will see how patient performs with 6-minute walk today (2) Atrial fibrillation with rapid ventricular response Is this a current diagnosis for this admission?: Yes Plan: Patient is back in sinus rhythm continue metoprolol We will change diltiazem IR added on admission to CD 180 mg daily. Will avoid increasing beta-dawson secondary to frequent COPD exacerbations. (3) Community acquired bacterial pneumonia Is this a current diagnosis for this admission?: Yes Plan: Azithromycin and ceftriaxone Blood cultures negative so far (4) Acute exacerbation of CHF (congestive heart failure) Qualifiers: Heart failure type: unspecified Qualified Code(s): I50.9 - Heart failure, unspecified Is this a current diagnosis for this admission?: Yes Plan: Secondary to noncompliance with recommended Lasix Exacerbation is mild so will simply resume twice daily dosing of Lasix (5) Iron deficiency anemia Is this a current diagnosis for this admission?: Yes Plan: Started on ferrous sulfate. Outpatient follow-up for further evaluation. (6) Acute on chronic respiratory failure with hypoxia Is this a current diagnosis for this admission?: Yes Plan: Continue nasal cannula 3-4 L. Patient uses 3 L at home. - Plan Summary Summary: Anticipate discharge tomorrow. Patient states she has a home nurse and bedside commode. Also states that she has her oxygen at home. - Time Time Spent with patient: 15-24 minutes Smoking Cessation Education: 3 to 10 minutes Anticipated discharge: Home Within: within 24 hours
[2019-05-04] MEDS: CEFTRIAXONE 1 GM/D5W RTU 1 GM/50 ML RTUPB IV SCH (09:51)
[2019-05-04] MEDS ORDERED: FUROSEMIDE 20 MG TABLET PO SCH (10:00)
[2019-05-04] MEDS ORDERED: APIXABAN 5 MG TABLET PO SCH (10:00)
[2019-05-04] MEDS: FUROSEMIDE 20 MG TABLET PO SCH ×2 (10:08→17:18)
[2019-05-04] MEDS: ASPIRIN 81 MG TABLET, ENT COATED PO SCH (10:09)
[2019-05-04] MEDS: METOPROLOL TARTRATE 50 MG TABLET PO SCH ×2 (10:09→21:04)
[2019-05-04] MEDS: FERROUS SULFATE 325 MG TABLET PO SCH (10:09)
[2019-05-04] MEDS: LOSARTAN POTASSIUM 50 MG TABLET PO SCH (10:09)
[2019-05-04] MEDS: AZITHROMYCIN 250 MG TABLET PO SCH (10:09)
[2019-05-04] MEDS: CALCITRIOL 0.25 MCG CAPSULE PO SCH (10:10)
[2019-05-04] MEDS: PREDNISONE 20 MG TABLET PO SCH ×2 (10:10→17:17)
[2019-05-04] MEDS: APIXABAN 5 MG TABLET PO SCH ×2 (10:12→17:17)
[2019-05-04] MEDS: DOCUSATE SODIUM 100 MG CAPSULE PO SCH ×2 (10:12→17:17)
[2019-05-04] MEDS: ACETAMINOPHEN 325 MG TABLET PO PRN ×2 (10:49→23:04)
[2019-05-04] MEDS ORDERED: DILTIAZEM HCL 180 MG CAPSULE.CR PO SCH (12:00)
--- NOTE | 2019-05-04 16:00 | Progress Note ---
Provider Note Provider Note: Informed that patient's had one blood culture bottle positive for gram-positive cocci in clusters. Already receiving antibiotics for pneumonia. Will await speciation to see if true bacteremia versus contaminant before altering current antibiotics regimen. Repeat blood cultures sent.
[2019-05-04] MEDS: ATORVASTATIN CALCIUM 20 MG TABLET PO SCH (21:04)
[2019-05-04] MEDS: IPRATROPIUM/ALBUTEROL 0.5-2.5 MG/3 ML AMPUL NEB PRN (21:41)
[2019-05-05] MEDS: LEVALBUTEROL HCL NEB 1.25 MG/3 ML AMPUL NEB SCH ×3 (00:21→15:58)
[2019-05-05 05:20] LABS: ABSOLUTE LYMPHOCYTES (AUTO) 0.7 10^3/uL (0.5-4.7); ABSOLUTE MONOCYTES (AUTO) 0.3 10^3/uL (0.1-1.4); BASOPHILS % (AUTO) 0.4 % (0-2); EOSINOPHILS % (AUTO) 0.1 % (0-6); HEMATOCRIT 29.1 % (36.0-47.0); HEMOGLOBIN 9.3 g/dL (12.0-15.5); LYMPHOCYTES % (AUTO) 9.3 % (13-45); MEAN CORPUSCULAR HEMOGLOBIN 24.9 pg (27.0-33.4); MEAN CORPUSCULAR VOLUME 78 fl (80-97); MONOCYTES % (AUTO) 4.9 % (3-13); PLATELET COUNT 181 10^3/uL (150-450); RED BLOOD COUNT 3.74 10^6/uL (3.72-5.28); RED CELL DISTRIBUTION WIDTH 20.7 % (11.5-14.0); SEGMENTED NEUTROPHILS % (AUTO) 85.3 % (42-78); TOTAL CELLS COUNTED % (AUTO) 100 %; WHITE BLOOD COUNT 7.1 10^3/uL (4.0-10.5)
[2019-05-05 05:40] LABS: ANION GAP 5 (5-19); BLOOD UREA NITROGEN 36 mg/dL (7-20); CALCIUM 9.2 mg/dL (8.4-10.2); CARBON DIOXIDE 36 mmol/L (22-30); CHLORIDE 97 mmol/L (98-107); GLUCOSE 110 mg/dL (75-110); POTASSIUM 4.5 mmol/L (3.6-5.0)
[2019-05-05] MEDS: ALBUTEROL SULFATE HFA (90 MCG/PUFF) 200 PUFF/8.5 GM MDI IH PRN ×3 (05:51→20:11)
[2019-05-05] MEDS: HYDRALAZINE HCL 50 MG TABLET PO SCH ×3 (05:51→23:40)
--- NOTE | 2019-05-05 08:47 | RADIOLOGY REPORT (SQ) ---
EXAM DESCRIPTION: CHEST SINGLE VIEW COMPLETED DATE/TIME: 05/05/2019 8:35 am REASON FOR STUDY: increased SOB COMPARISON: None. EXAM PARAMETERS: NUMBER OF VIEWS: One view. TECHNIQUE: Single frontal radiographic view of the chest acquired. RADIATION DOSE: NA LIMITATIONS: None. FINDINGS: LUNGS AND PLEURA: Asymmetric, right greater than left, basilar predominant pleural and par enchymal opacities that have increased from 05/02/2019. There is no pneumothorax. MEDIASTINUM AND HILAR STRUCTURES: Unchanged mediastinal and hilar contours. HEART AND VASCULAR STRUCTURES: Unchanged cardiac silhouette. BONES: No acute findings. HARDWARE: None in the chest. OTHER: No other finding. IMPRESSION: Increased asymmetric, right greater than left, basilar predominant pleural and parenchym al opacities. TECHNICAL DOCUMENTATION: JOB ID: [id number] [employer]- All Rights Reserved Reading location - IP/workstation name: [email or web address]
--- NOTE | 2019-05-05 09:24 | PDOC PROGRESS REPORT ---
Subjective Progress Note for:: 05/05/19 Reason For Visit: SOB,AFIB,CHF 05/05/2019 83-year-old female admitted for shortness of breath atrial fib and CHF. She reportedly not taking her Lasix at home, was 20 mg twice daily. She is also on 3 L of oxygen at home. Complaining of increased shortness of breath this morning Physical Exam Vital Signs: Temp Pulse Resp BP Pulse Ox 98.0 F 80 16 159/81 H 99 05/05/19 07:32 05/05/19 07:54 05/05/19 07:54 05/05/19 07:32 05/05/19 07:54 Intake & Output 05/04/19 05/05/19 05/06/19 06:59 06:59 06:59 Intake Total 1010 1112 Balance 1010 1112 Weight 69.8 kg 70.6 kg General appearance: PRESENT: mild distress, other - Secondary to shortness of breath Respiratory exam: PRESENT: crackles Cardiovascular exam: PRESENT: RRR. ABSENT: diastolic murmur, rubs, systolic murmur Neurological exam: PRESENT: alert, awake, oriented to person, oriented to place, oriented to time, oriented to situation, CN II-XII grossly intact. ABSENT: motor sensory deficit Psychiatric exam: PRESENT: anxious Results Laboratory Results: 05/05/19 05:00 05/05/19 05:00 05/05/19 05/05/19 05:00 05:00 WBC 7.1 RBC 3.74 Hgb 9.3 L Hct 29.1 L MCV 78 L MCH 24.9 L MCHC 32.0 RDW 20.7 H Plt Count 181 Seg Neutrophils % 85.3 H Sodium 137.6 Potassium 4.5 Chloride 97 L Carbon Dioxide 36 H Anion Gap 5 BUN 36 H Creatinine 1.05 Est GFR ( Amer) > 60 Glucose 110 Calcium 9.2 05/02/19 19:57 Blood Blood Culture (PCR) - Final 05/02/19 05/02/19 05/03/19 19:57 19:57 01:34 Creatine Kinase 29 L Troponin I 0.017 0.016 NT-Pro-B Natriuret Pep 8960 H 05/03/19 05/03/19 05/03/19 08:20 08:20 14:08 Creatine Kinase 28 L 24 L Troponin I 0.015 NT-Pro-B Natriuret Pep 05/03/19 05/05/19 14:08 05:00 Creatine Kinase Troponin I 0.015 NT-Pro-B Natriuret Pep 98140 H Impressions: Abdomen X-Ray 05/02/19 00:00 IMPRESSION: 1. No acute abdominal findings Chest X-Ray 05/05/19 00:00 IMPRESSION: Increased asymmetric, right greater than left, basilar predominant pleural and parenchymal opacities. Assessment and Plan - Diagnosis (1) Tobacco abuse Is this a current diagnosis for this admission?: Yes (2) Dependence on supplemental oxygen Is this a current diagnosis for this admission?: Yes (3) Atrial fibrillation Qualifiers: Atrial fibrillation type: unspecified Qualified Code(s): I48.91 - Unspecified atrial fibrillation Is this a current diagnosis for this admission?: Yes (4) Pneumonia Qualifiers: Pneumonia type: due to unspecified organism Laterality: unspecified laterality Lung location: unspecified part of lung Qualified Code(s): J18.9 - Pneumonia, unspecified organism Is this a current diagnosis for this admission?: Yes (5) CHF (congestive heart failure) Qualifiers: Heart failure type: unspecified Heart failure chronicity: unspecified Qualified Code(s): I50.9 - Heart failure, unspecified Is this a current diagnosis for this admission?: Yes - Plan Summary Summary: Anticipate discharge tomorrow. Patient states she has a home nurse and bedside commode. Also states that she has her oxygen at home. 05/05/2019 She is complaining of increased shortness of breath this morning. Portable chest x-ray shows significant increase in CHF. BNP is elevated up from admission [id number] Patient was taking Lasix 20 mg twice daily at home, or at least supposed to be taking it. Give a stat dose of Lasix 40 mg IV now and then 20 mg IV every 12 hours. BUN this morning of 36 creatinine 1.05 White count stable 7.1. She is currently on Zithromax and Rocephin as well as prednisone. reportably she is allergic to prednisone and the cephalosporins, tolerating them well. Patient is in no condition to be discharged today, will see how she responds to IV Lasix - Time Time Spent with patient: 25-34 minutes
[2019-05-05] MEDS ORDERED: FUROSEMIDE INJ/PF 40 MG/4 ML SDV IV ONE (10:00)
[2019-05-05] MEDS: DOCUSATE SODIUM 100 MG CAPSULE PO SCH ×2 (10:16→17:40)
[2019-05-05] MEDS: FERROUS SULFATE 325 MG TABLET PO SCH (10:16)
[2019-05-05] MEDS: APIXABAN 5 MG TABLET PO SCH ×2 (10:17→17:40)
[2019-05-05] MEDS: METOPROLOL TARTRATE 50 MG TABLET PO SCH ×2 (10:18→21:14)
[2019-05-05] MEDS: LOSARTAN POTASSIUM 50 MG TABLET PO SCH (10:18)
[2019-05-05] MEDS: ASPIRIN 81 MG TABLET, ENT COATED PO SCH (10:18)
[2019-05-05] MEDS: AZITHROMYCIN 250 MG TABLET PO SCH (10:18)
[2019-05-05] MEDS: FLUTICASONE NASAL SPRAY 50 MCG/SPRY 120 SPRAY/16 GM NASL SCH ×2 (10:19→21:16)
[2019-05-05] MEDS: CEFTRIAXONE 1 GM/D5W RTU 1 GM/50 ML RTUPB IV SCH (10:19)
[2019-05-05] MEDS: PREDNISONE 20 MG TABLET PO SCH (10:32)
[2019-05-05] MEDS: ONDANSETRON 4 MG TAB.RAPDIS PO PRN (14:55)
[2019-05-05 18:21] LABS: APPEARANCE,URINE CLEAR; BILIRUBIN,URINE NEGATIVE (NEGATIVE); COLOR,URINE STRAW; GLUCOSE, URINE NEGATIVE (NEGATIVE); KETONES,URINE NEGATIVE (NEGATIVE); LEUKOCYTE ESTERASE,URINE NEGATIVE (NEGATIVE); NITRITE,URINE NEGATIVE (NEGATIVE); PROTEIN,URINE NEGATIVE (NEGATIVE); URINE SPECIFIC GRAVITY 1.006; UROBILINOGEN,URINE NEGATIVE mg/dL (<2.0)
[2019-05-05] MEDS: IPRATROPIUM/ALBUTEROL 0.5-2.5 MG/3 ML AMPUL NEB PRN (20:17)
[2019-05-05] MEDS: MESALAMINE 400 MG CAPSULE.DR PO SCH (21:13)
[2019-05-05] MEDS: ATORVASTATIN CALCIUM 20 MG TABLET PO SCH (21:15)
[2019-05-05] MEDS: OXYBUTYNIN CHLORIDE 5 MG TABLET PO SCH (21:15)
[2019-05-05] MEDS: FUROSEMIDE INJ/PF 20 MG/2 ML SDV IV SCH (21:16)
[2019-05-06] MEDS: LEVALBUTEROL HCL NEB 1.25 MG/3 ML AMPUL NEB SCH ×3 (00:09→15:47)
[2019-05-06] MEDS: HYDRALAZINE HCL 50 MG TABLET PO SCH ×3 (06:53→21:13)
--- NOTE | 2019-05-06 09:14 | PDOC PROGRESS REPORT ---
Subjective Progress Note for:: 05/06/19 Reason For Visit: SOB,AFIB,CHF 05/06/2019 Was admitted to the hospital 4 days ago for shortness of breath, atrial fib, CHF Patient also has bilateral basilar pneumonia. Currently on IV Lasix IV Zithromax and IV Rocephin Physical Exam Vital Signs: Temp Pulse Resp BP Pulse Ox 98.3 F 114 H 16 112/80 97 05/06/19 03:34 05/06/19 03:34 05/06/19 03:34 05/06/19 03:34 05/06/19 03:34 Intake & Output 05/05/19 05/06/19 05/07/19 06:59 06:59 06:59 Intake Total 1112 930 Output Total 2100 Balance 1112 -1170 Weight 70.6 kg 67.3 kg General appearance: PRESENT: no acute distress, other - Patient sleeping and resting comfortably Respiratory exam: PRESENT: clear to auscultation emma. ABSENT: rales, rhonchi, wheezes Cardiovascular exam: PRESENT: RRR. ABSENT: diastolic murmur, rubs, systolic murmur Neurological exam: PRESENT: alert, awake, oriented to person, oriented to place, oriented to time, oriented to situation, CN II-XII grossly intact. ABSENT: motor sensory deficit Psychiatric exam: PRESENT: appropriate affect, normal mood. ABSENT: homicidal ideation, suicidal ideation Results Laboratory Results: 05/05/19 05:00 05/05/19 05:00 05/05/19 17:36 Urine Color STRAW Urine Appearance CLEAR Urine pH 6.0 Ur Specific [place] 1.006 Urine Protein NEGATIVE Urine Glucose (UA) NEGATIVE Urine Ketones NEGATIVE Urine Blood NEGATIVE Urine Nitrite NEGATIVE Ur Leukocyte Esterase NEGATIVE Urine RBC (Auto) 0 05/02/19 19:57 Blood Blood Culture (PCR) - Final 05/02/19 19:57 Blood Blood Culture - Final Micrococcus Species 05/02/19 05/02/19 05/03/19 19:57 19:57 01:34 Creatine Kinase 29 L Troponin I 0.017 0.016 NT-Pro-B Natriuret Pep 8960 H 05/03/19 05/03/19 05/03/19 08:20 08:20 14:08 Creatine Kinase 28 L 24 L Troponin I 0.015 NT-Pro-B Natriuret Pep 05/03/19 05/05/19 14:08 05:00 Creatine Kinase Troponin I 0.015 NT-Pro-B Natriuret Pep 64276 H Impressions: Abdomen X-Ray 05/02/19 00:00 IMPRESSION: 1. No acute abdominal findings Chest X-Ray 05/05/19 00:00 IMPRESSION: Increased asymmetric, right greater than left, basilar predominant pleural and parenchymal opacities. Assessment and Plan - Diagnosis (1) Tobacco abuse Is this a current diagnosis for this admission?: Yes (2) Dependence on supplemental oxygen Is this a current diagnosis for this admission?: Yes (3) Atrial fibrillation Qualifiers: Atrial fibrillation type: unspecified Qualified Code(s): I48.91 - Unspecified atrial fibrillation Is this a current diagnosis for this admission?: Yes (4) Pneumonia Qualifiers: Pneumonia type: due to unspecified organism Laterality: unspecified laterality Lung location: unspecified part of lung Qualified Code(s): J18.9 - Pneumonia, unspecified organism Is this a current diagnosis for this admission?: Yes (5) CHF (congestive heart failure) Qualifiers: Heart failure type: unspecified Heart failure chronicity: unspecified Qualified Code(s): I50.9 - Heart failure, unspecified Is this a current diagnosis for this admission?: Yes - Plan Summary Summary: Anticipate discharge tomorrow. Patient states she has a home nurse and bedside commode. Also states that she has her oxygen at home. 05/05/2019 She is complaining of increased shortness of breath this morning. Portable chest x-ray shows significant increase in CHF. BNP is elevated up from admission 896 [id number] Patient was taking Lasix 20 mg twice daily at home, or at least supposed to be taking it. Give a stat dose of Lasix 40 mg IV now and then 20 mg IV every 12 hours. BUN this morning of 36 creatinine 1.05 White count stable 7.1. She is currently on Zithromax and Rocephin as well as prednisone. reportably she is allergic to prednisone and the cephalosporins, tolerating them well. Patient is in no condition to be discharged today, will see how she responds to IV Lasix 05/06/2019 She is significantly improved this morning probably secondary to the increase in IV Lasix. Patient sleeping rouses easily Patient's last saturation was 97% this morning on 3.5 L of oxygen. Patient does use oxygen at home at 3 L Patient's she is not ready to go home yet, agree that 1 more day of IV antibiotics and IV Lasix would be indicated. Hopefully we can discharge tomorrow - Time Time Spent with patient: 15-24 minutes
[2019-05-06] MEDS: FERROUS SULFATE 325 MG TABLET PO SCH (09:30)
[2019-05-06] MEDS: METOPROLOL TARTRATE 50 MG TABLET PO SCH ×2 (09:30→21:12)
[2019-05-06] MEDS: AZITHROMYCIN 250 MG TABLET PO SCH (09:30)
[2019-05-06] MEDS: CEFTRIAXONE 1 GM/D5W RTU 1 GM/50 ML RTUPB IV SCH (09:30)
[2019-05-06] MEDS: FUROSEMIDE INJ/PF 20 MG/2 ML SDV IV SCH ×2 (09:30→21:14)
[2019-05-06] MEDS: APIXABAN 5 MG TABLET PO SCH ×2 (09:30→17:38)
[2019-05-06] MEDS: LOSARTAN POTASSIUM 50 MG TABLET PO SCH (09:30)
[2019-05-06] MEDS: ASPIRIN 81 MG TABLET, ENT COATED PO SCH (09:30)
[2019-05-06] MEDS: CALCITRIOL 0.25 MCG CAPSULE PO SCH (09:30)
[2019-05-06] MEDS: DOCUSATE SODIUM 100 MG CAPSULE PO SCH ×2 (09:30→17:38)
[2019-05-06] MEDS: FLUTICASONE NASAL SPRAY 50 MCG/SPRY 120 SPRAY/16 GM NASL SCH ×2 (09:45→21:14)
[2019-05-06 11:53] LABS: ANION GAP 7 (5-19); BLOOD UREA NITROGEN 36 mg/dL (7-20); CALCIUM 8.8 mg/dL (8.4-10.2); CARBON DIOXIDE 37 mmol/L (22-30); CHLORIDE 94 mmol/L (98-107); GLUCOSE 125 mg/dL (75-110)
[2019-05-06] MEDS: ALBUTEROL SULFATE HFA (90 MCG/PUFF) 200 PUFF/8.5 GM MDI IH PRN (16:36)
[2019-05-06] MEDS: GUAIFENESIN SYRP 200 MG/10 ML UDC PO PRN (19:58)
[2019-05-06] MEDS: MESALAMINE 400 MG CAPSULE.DR PO SCH (21:12)
[2019-05-06] MEDS: ATORVASTATIN CALCIUM 20 MG TABLET PO SCH (21:13)
[2019-05-06] MEDS: OXYBUTYNIN CHLORIDE 5 MG TABLET PO SCH (21:13)
[2019-05-07] MEDS: ACETAMINOPHEN 325 MG TABLET PO PRN ×2 (00:05→21:47)
[2019-05-07] MEDS: LEVALBUTEROL HCL NEB 1.25 MG/3 ML AMPUL NEB SCH ×3 (00:24→16:06)
[2019-05-07] MEDS: HYDRALAZINE HCL 50 MG TABLET PO SCH ×3 (06:48→21:44)
[2019-05-07] MEDS: LOSARTAN POTASSIUM 50 MG TABLET PO SCH (09:26)
[2019-05-07] MEDS: DOCUSATE SODIUM 100 MG CAPSULE PO SCH ×2 (09:26→17:31)
[2019-05-07] MEDS: AZITHROMYCIN 250 MG TABLET PO SCH (09:26)
[2019-05-07] MEDS: FERROUS SULFATE 325 MG TABLET PO SCH (09:26)
[2019-05-07] MEDS: METOPROLOL TARTRATE 50 MG TABLET PO SCH ×2 (09:26→21:43)
[2019-05-07] MEDS: APIXABAN 5 MG TABLET PO SCH ×2 (09:26→17:31)
[2019-05-07] MEDS: ASPIRIN 81 MG TABLET, ENT COATED PO SCH (09:26)
[2019-05-07] MEDS: FUROSEMIDE INJ/PF 20 MG/2 ML SDV IV SCH ×2 (09:27→21:44)
[2019-05-07] MEDS: FLUTICASONE NASAL SPRAY 50 MCG/SPRY 120 SPRAY/16 GM NASL SCH ×2 (09:27→21:45)
[2019-05-07] MEDS: CEFTRIAXONE 1 GM/D5W RTU 1 GM/50 ML RTUPB IV SCH (09:27)
[2019-05-07] MEDS: GUAIFENESIN SYRP 200 MG/10 ML UDC PO PRN (09:35)
--- NOTE | 2019-05-07 09:38 | RADIOLOGY REPORT (SQ) ---
EXAM DESCRIPTION: CHEST SINGLE VIEW COMPLETED DATE/TIME: 05/07/2019 9:04 am REASON FOR STUDY: SOB COMPARISON: 05/05/2019 NUMBER OF VIEWS: One view. TECHNIQUE: Single frontal radiographic image of the chest acquired. LIMITATIONS: None. FINDINGS: LUNGS AND PLEURA: Bilateral pleural effusions and associated airspace disease, right great er than left is not significantly changed. MEDIASTINUM AND HEART: Stable heart size and mediastinal structures. BONY STRUCTURES: No acute findings. HARDWARE: None. OTHER: No other significant finding. IMPRESSION: Bilateral pneumonia. No significant change. TECHNICAL DOCUMENTATION: JOB ID: [id number] Reading location - IP/workstation name: [email or web address]
--- NOTE | 2019-05-07 14:29 | PDOC PROGRESS REPORT ---
Subjective Progress Note for:: 05/07/19 Reason For Visit: SOB,AFIB,CHF Physical Exam Vital Signs: Temp Pulse Resp BP Pulse Ox 97.4 F 110 H 16 131/67 H 93 05/07/19 08:09 05/07/19 13:39 05/07/19 08:50 05/07/19 08:09 05/07/19 08:50 Intake & Output 05/06/19 05/07/19 05/08/19 06:59 06:59 06:59 Intake Total 930 175 50 Output Total 2100 1500 Balance -1170 -1325 50 Weight 67.3 kg 67 kg General appearance: PRESENT: mild distress, other - Patient is able to speak in complete sentences in fact talks for at least 15 minutes pretty much nonstop Respiratory exam: PRESENT: rales - Scattered Cardiovascular exam: PRESENT: RRR. ABSENT: diastolic murmur, rubs, systolic murmur Neurological exam: PRESENT: alert, awake, oriented to person, oriented to place, oriented to time, oriented to situation, CN II-XII grossly intact. ABSENT: motor sensory deficit Psychiatric exam: PRESENT: anxious Results Laboratory Results: 05/05/19 05:00 05/06/19 10:25 05/02/19 05/02/19 05/03/19 19:57 19:57 01:34 Creatine Kinase 29 L Troponin I 0.017 0.016 NT-Pro-B Natriuret Pep 8960 H 05/03/19 05/03/19 05/03/19 08:20 08:20 14:08 Creatine Kinase 28 L 24 L Troponin I 0.015 NT-Pro-B Natriuret Pep 05/03/19 05/05/19 05/06/19 14:08 05:00 10:25 Creatine Kinase Troponin I 0.015 NT-Pro-B Natriuret Pep 69072 H 70070 H Impressions: Abdomen X-Ray 05/02/19 00:00 IMPRESSION: 1. No acute abdominal findings Chest X-Ray 05/07/19 00:00 IMPRESSION: Bilateral pneumonia. No significant change. Assessment and Plan - Diagnosis (1) Tobacco abuse Is this a current diagnosis for this admission?: Yes (2) Dependence on supplemental oxygen Is this a current diagnosis for this admission?: Yes (3) Atrial fibrillation Qualifiers: Atrial fibrillation type: unspecified Qualified Code(s): I48.91 - Unspecified atrial fibrillation Is this a current diagnosis for this admission?: Yes (4) Pneumonia Qualifiers: Pneumonia type: due to unspecified organism Laterality: unspecified laterality Lung location: unspecified part of lung Qualified Code(s): J18.9 - Pneumonia, unspecified organism Is this a current diagnosis for this admission?: Yes (5) CHF (congestive heart failure) Qualifiers: Heart failure type: unspecified Heart failure chronicity: unspecified Qualified Code(s): I50.9 - Heart failure, unspecified Is this a current diagnosis for this admission?: Yes (6) Anxiety Is this a current diagnosis for this admission?: Yes - Plan Summary Summary: Anticipate discharge tomorrow. Patient states she has a home nurse and bedside commode. Also states that she has her oxygen at home. 05/05/2019 She is complaining of increased shortness of breath this morning. Portable chest x-ray shows significant increase in CHF. BNP is elevated up from admission 896 [id number] Patient was taking Lasix 20 mg twice daily at home, or at least supposed to be taking it. Give a stat dose of Lasix 40 mg IV now and then 20 mg IV every 12 hours. BUN this morning of 36 creatinine 1.05 White count stable 7.1. She is currently on Zithromax and Rocephin as well as prednisone. reportably she is allergic to prednisone and the cephalosporins, tolerating them well. Patient is in no condition to be discharged today, will see how she responds to IV Lasix 05/06/2019 She is significantly improved this morning probably secondary to the increase in IV Lasix. Patient sleeping rouses easily Patient's last saturation was 97% this morning on 3.5 L of oxygen. Patient does use oxygen at home at 3 L Patient's she is not ready to go home yet, agree that 1 more day of IV antibiotics and IV Lasix would be indicated. Hopefully we can discharge tomorrow 05/07/2019 Had a long discussion today with discharge planning as well as the patient and her son patient has been in the hospital and/or emergency room 13 times this year with 11 of those times being called by ambulance. Her son asked if she is a candidate for nursing facility. I have told him that certainly she does not seem to be doing well at home even though she has multiple services at home that assist her with her care. I reviewed patient's chest x-ray from today as well as previous chest x-rays. Feel that the changes in the right lower lobe are due to pneumonia as opposed to CHF. SHe is currently taking Lasix 20 mg twice daily. Patient goes home I am going to discharge her on Levaquin 500 mg 7 tablets 1 tablet daily. Her O2 sats are in the 90s on her 3 L which is what she uses at home. Patient will be seen by PT today. Discharge planning will talk to the family and patient once again - Time Time Spent with patient: 35 or more minutes
[2019-05-07] MEDS: LORAZEPAM 0.5 MG TABLET PO PRN (18:35)
[2019-05-07] MEDS: MESALAMINE 400 MG CAPSULE.DR PO SCH (21:43)
[2019-05-07] MEDS: ATORVASTATIN CALCIUM 20 MG TABLET PO SCH (21:43)
[2019-05-07] MEDS: OXYBUTYNIN CHLORIDE 5 MG TABLET PO SCH (21:43)
[2019-05-08] MEDS: LEVALBUTEROL HCL NEB 1.25 MG/3 ML AMPUL NEB SCH ×4 (00:17→23:24)
[2019-05-08] MEDS: ACETAMINOPHEN 325 MG TABLET PO PRN ×2 (04:47→20:55)
[2019-05-08] MEDS: HYDRALAZINE HCL 50 MG TABLET PO SCH ×3 (06:36→21:58)
[2019-05-08 07:49] LABS: ABSOLUTE BASOPHILS # (AUTO) 0.1 10^3/uL (0.0-0.2); ABSOLUTE EOSINOPHILS # (AUTO) 0.2 10^3/uL (0.0-0.6); ABSOLUTE MONOCYTES (AUTO) 0.4 10^3/uL (0.1-1.4); ABSOLUTE NEUT (AUTO) 4.5 10^3/uL (1.7-8.2); BASOPHILS % (AUTO) 0.9 % (0-2); EOSINOPHILS % (AUTO) 2.5 % (0-6); HEMATOCRIT 28.3 % (36.0-47.0); HEMOGLOBIN 9.2 g/dL (12.0-15.5); MEAN CORPUSCULAR HEMOGLOBIN 25.3 pg (27.0-33.4); MEAN CORPUSCULAR HGB CONC 32.5 g/dL (32.0-36.0); MEAN CORPUSCULAR VOLUME 78 fl (80-97); MONOCYTES % (AUTO) 6.2 % (3-13); PLATELET COUNT 185 10^3/uL (150-450); RED BLOOD COUNT 3.63 10^6/uL (3.72-5.28); RED CELL DISTRIBUTION WIDTH 21.2 % (11.5-14.0); SEGMENTED NEUTROPHILS % (AUTO) 74.4 % (42-78); TOTAL CELLS COUNTED % (AUTO) 100 %; WHITE BLOOD COUNT 6.1 10^3/uL (4.0-10.5)
[2019-05-08 08:10] LABS: BLOOD UREA NITROGEN 27 mg/dL (7-20); CALCIUM 8.8 mg/dL (8.4-10.2); CHLORIDE 96 mmol/L (98-107); GLUCOSE 96 mg/dL (75-110); POTASSIUM 3.6 mmol/L (3.6-5.0)
[2019-05-08 08:27] LABS: ANION GAP 2 (5-19); CARBON DIOXIDE 40 mmol/L (22-30)
[2019-05-08] MEDS: FERROUS SULFATE 325 MG TABLET PO SCH (09:34)
[2019-05-08] MEDS: DOCUSATE SODIUM 100 MG CAPSULE PO SCH ×2 (09:34→17:03)
[2019-05-08] MEDS: CALCITRIOL 0.25 MCG CAPSULE PO SCH (09:34)
[2019-05-08] MEDS: AZITHROMYCIN 250 MG TABLET PO SCH (09:35)
[2019-05-08] MEDS: ASPIRIN 81 MG TABLET, ENT COATED PO SCH (09:35)
[2019-05-08] MEDS: APIXABAN 5 MG TABLET PO SCH ×2 (09:36→17:05)
[2019-05-08] MEDS: LOSARTAN POTASSIUM 50 MG TABLET PO SCH (09:36)
[2019-05-08] MEDS: METOPROLOL TARTRATE 50 MG TABLET PO SCH ×2 (09:36→21:57)
[2019-05-08] MEDS: FUROSEMIDE INJ/PF 20 MG/2 ML SDV IV SCH ×2 (09:36→21:58)
[2019-05-08] MEDS: CEFTRIAXONE 1 GM/D5W RTU 1 GM/50 ML RTUPB IV SCH (09:41)
[2019-05-08] MEDS: FLUTICASONE NASAL SPRAY 50 MCG/SPRY 120 SPRAY/16 GM NASL SCH ×2 (09:42→21:59)
--- NOTE | 2019-05-08 09:59 | PDOC PROGRESS REPORT ---
Subjective Progress Note for:: 05/08/19 Reason For Visit: SOB,AFIB,CHF 05/08/2019 Patient now waiting for long term approval and placement. RODRIGUEZ I was actually ready to send the patient home yesterday the patient and son were asking about long term placement. Now today patient is asking me if she can go home. Will get ID consult concerning antibiotics today since she is remaining in the hospital Physical Exam Vital Signs: Temp Pulse Resp BP Pulse Ox 97.6 F 95 16 126/76 H 93 05/08/19 07:50 05/08/19 08:08 05/08/19 08:08 05/08/19 07:50 05/08/19 08:08 Intake & Output 05/07/19 05/08/19 05/09/19 06:59 06:59 06:59 Intake Total 175 890 Output Total 1500 1500 Balance -1325 -610 Weight 67 kg 65.5 kg General appearance: PRESENT: no acute distress, other - Patient states she feels better today and actually looks much better, less shortness of breath Respiratory exam: PRESENT: rales - Right base Cardiovascular exam: PRESENT: RRR. ABSENT: diastolic murmur, rubs, systolic murmur Neurological exam: PRESENT: alert, awake, oriented to person, oriented to place, oriented to time, oriented to situation, CN II-XII grossly intact. ABSENT: motor sensory deficit Psychiatric exam: PRESENT: anxious - She did receive a low dose of Ativan last night for anxiousness Results Laboratory Results: 05/08/19 07:37 05/08/19 07:37 05/08/19 05/08/19 07:37 07:37 WBC 6.1 RBC 3.63 L Hgb 9.2 L Hct 28.3 L MCV 78 L MCH 25.3 L MCHC 32.5 RDW 21.2 H Plt Count 185 Seg Neutrophils % 74.4 Sodium 138.2 Potassium 3.6 Chloride 96 L Carbon Dioxide 40 H* Anion Gap 2 L BUN 27 H Creatinine 0.97 Est GFR ( Amer) > 60 Glucose 96 Calcium 8.8 05/03/19 01:34 Blood Blood Culture - Final NO GROWTH IN 5 DAYS 05/02/19 05/02/19 05/03/19 19:57 19:57 01:34 Creatine Kinase 29 L Troponin I 0.017 0.016 NT-Pro-B Natriuret Pep 8960 H 05/03/19 05/03/19 05/03/19 08:20 08:20 14:08 Creatine Kinase 28 L 24 L Troponin I 0.015 NT-Pro-B Natriuret Pep 05/03/19 05/05/19 05/06/19 14:08 05:00 10:25 Creatine Kinase Troponin I 0.015 NT-Pro-B Natriuret Pep 41261 H 42312 H 05/08/19 07:37 Creatine Kinase Troponin I NT-Pro-B Natriuret Pep 48749 H Impressions: Abdomen X-Ray 05/02/19 00:00 IMPRESSION: 1. No acute abdominal findings Chest X-Ray 05/07/19 00:00 IMPRESSION: Bilateral pneumonia. No significant change. Assessment and Plan - Diagnosis (1) Tobacco abuse Is this a current diagnosis for this admission?: Yes (2) Dependence on supplemental oxygen Is this a current diagnosis for this admission?: Yes (3) Atrial fibrillation Qualifiers: Atrial fibrillation type: unspecified Qualified Code(s): I48.91 - Unspecified atrial fibrillation Is this a current diagnosis for this admission?: Yes (4) Pneumonia Qualifiers: Pneumonia type: due to unspecified organism Laterality: unspecified laterality Lung location: unspecified part of lung Qualified Code(s): J18.9 - Pneumonia, unspecified organism Is this a current diagnosis for this admission?: Yes (5) CHF (congestive heart failure) Qualifiers: Heart failure type: unspecified Heart failure chronicity: unspecified Qualified Code(s): I50.9 - Heart failure, unspecified Is this a current diagnosis for this admission?: Yes (6) Anxiety Is this a current diagnosis for this admission?: Yes - Plan Summary Summary: Anticipate discharge tomorrow. Patient states she has a home nurse and bedside commode. Also states that she has her oxygen at home. 05/05/2019 She is complaining of increased shortness of breath this morning. Portable chest x-ray shows significant increase in CHF. BNP is elevated up from admission 896 [id number] Patient was taking Lasix 20 mg twice daily at home, or at least supposed to be taking it. Give a stat dose of Lasix 40 mg IV now and then 20 mg IV every 12 hours. BUN this morning of 36 creatinine 1.05 White count stable 7.1. She is currently on Zithromax and Rocephin as well as prednisone. reportably she is allergic to prednisone and the cephalosporins, tolerating them well. Patient is in no condition to be discharged today, will see how she responds to IV Lasix 05/06/2019 She is significantly improved this morning probably secondary to the increase in IV Lasix. Patient sleeping rouses easily Patient's last saturation was 97% this morning on 3.5 L of oxygen. Patient does use oxygen at home at 3 L Patient's she is not ready to go home yet, agree that 1 more day of IV antibiotics and IV Lasix would be indicated. Hopefully we can discharge tomorrow 05/07/2019 Had a long discussion today with discharge planning as well as the patient and her son patient has been in the hospital and/or emergency room 13 times this year with 11 of those times being called by ambulance. Her son asked if she is a candidate for nursing facility. I have told him that certainly she does not seem to be doing well at home even though she has multiple services at home that assist her with her care. I reviewed patient's chest x-ray from today as well as previous chest x-rays. Feel that the changes in the right lower lobe are due to pneumonia as opposed to CHF. SHe is currently taking Lasix 20 mg twice daily. Patient goes home I am going to discharge her on Levaquin 500 mg 7 tablets 1 tablet daily. Her O2 sats are in the 90s on her 3 L which is what she uses at home. Patient will be seen by PT today. Discharge planning will talk to the family and patient once again 05/08/2019 PASRR has been submitted. Patient is feeling much better today and actually asking to go home, less shortness of breath.. O2 sat 93% on 3 L which is probably her baseline. Labs are very stable, BNP is back down to 13,800 today Waiting long term placement, get ID consult today - Time Time Spent with patient: 25-34 minutes
--- NOTE | 2019-05-08 17:06 | ADVANCED CARE ---
- Diagnosis (1) Tobacco abuse Diagnosis Current: Yes (2) Dependence on supplemental oxygen Diagnosis Current: Yes (3) Atrial fibrillation Diagnosis Current: Yes (4) Pneumonia Diagnosis Current: Yes (5) CHF (congestive heart failure) Diagnosis Current: Yes (6) Anxiety Diagnosis Current: Yes Attendance: This conference occurred May 07, 2019 with the son present in the room Resuscitation Status: Full Code Discussion: On May 07, 2019 the patient and the son and I had a long discussion about rehab, physical therapy, [facility] facility.. This day the patient was asking to be sent to [facility] facility that she cannot go home. We discussed that the patient had been in the hospital 13 times this year and 11 of those times had been by EMS presentation. Patient clearly is failing at home unable to care for herself even with home health and family assistance. Therefore we will get a stat PT and OT consult for possible placement a appropriateness Approximately 45 minutes was spent reviewing the chart talking to discharge planning and talking to the patient and family Care Planning Goals: [facility] facility and/or rehab Document(s) Completed: [place] 2 forms will be signed all her prescriptions that are needed Time Spent: 45 minutes
--- NOTE | 2019-05-08 18:46 | Progress Note ---
Provider Note Provider Note: ID Note- I reviewed the patient's chart, including labs, vital signs, and CXRs. The patient has not had any fever. WBC is not elevated. CXR and BNP suggestive of CHF, not pneumonia. She has received 6 days of antibiotics (ceftriaxone and azithromycin). Recommend discontinuing antibiotics. She has had enough a ntibiotics even if she did have pneumonia or acute exacerbation of chronic bronchitis. Please contact me if there are questions. Servando Payan MD Pager: [phone]
[2019-05-08] MEDS: LORAZEPAM 0.5 MG TABLET PO PRN (20:57)
[2019-05-08] MEDS: MESALAMINE 400 MG CAPSULE.DR PO SCH (21:55)
[2019-05-08] MEDS: OXYBUTYNIN CHLORIDE 5 MG TABLET PO SCH (21:57)
[2019-05-08] MEDS: ATORVASTATIN CALCIUM 20 MG TABLET PO SCH (21:58)
[2019-05-09] MEDS: HYDRALAZINE HCL 50 MG TABLET PO SCH ×3 (06:28→21:53)
[2019-05-09] MEDS: LEVALBUTEROL HCL NEB 1.25 MG/3 ML AMPUL NEB SCH ×2 (08:47→16:03)
[2019-05-09] MEDS: DOCUSATE SODIUM 100 MG CAPSULE PO SCH ×2 (09:15→17:26)
[2019-05-09] MEDS: FUROSEMIDE INJ/PF 20 MG/2 ML SDV IV SCH (09:22)
[2019-05-09] MEDS: ASPIRIN 81 MG TABLET, ENT COATED PO SCH (09:22)
[2019-05-09] MEDS: APIXABAN 5 MG TABLET PO SCH ×2 (09:22→17:27)
[2019-05-09] MEDS: LOSARTAN POTASSIUM 50 MG TABLET PO SCH (09:23)
[2019-05-09] MEDS: FLUTICASONE NASAL SPRAY 50 MCG/SPRY 120 SPRAY/16 GM NASL SCH ×2 (09:23→21:55)
[2019-05-09] MEDS: METOPROLOL TARTRATE 50 MG TABLET PO SCH ×2 (09:23→21:52)
[2019-05-09] MEDS: FERROUS SULFATE 325 MG TABLET PO SCH (09:23)
--- NOTE | 2019-05-09 09:40 | PDOC PROGRESS REPORT ---
Subjective Progress Note for:: 05/09/19 Reason For Visit: SOB,AFIB,CHF 05/09/2019 She is now awaiting detention facility placement. Physical Exam Vital Signs: Temp Pulse Resp BP Pulse Ox 98.0 F 100 14 141/77 H 97 05/09/19 08:02 05/09/19 08:02 05/09/19 08:02 05/09/19 08:02 05/09/19 08:02 Intake & Output 05/08/19 05/09/19 05/10/19 06:59 06:59 05:59 Intake Total 890 422 Output Total 1500 400 Balance -610 22 Weight 65.5 kg 66.4 kg General appearance: PRESENT: no acute distress, other - Resting comfortably no respiratory distress Respiratory exam: PRESENT: clear to auscultation emma. ABSENT: rales, rhonchi, wheezes Cardiovascular exam: PRESENT: RRR. ABSENT: diastolic murmur, rubs, systolic murmur Neurological exam: PRESENT: alert, awake, oriented to person, oriented to place, oriented to time, oriented to situation, CN II-XII grossly intact. ABSENT: motor sensory deficit Psychiatric exam: PRESENT: appropriate affect, normal mood, other - Patient now has a low dose of Ativan ordered as needed which she got a dose last night. ABSENT: homicidal ideation, suicidal ideation Results Laboratory Results: 05/08/19 07:37 05/08/19 07:37 05/02/19 05/02/19 05/03/19 19:57 19:57 01:34 Creatine Kinase 29 L Troponin I 0.017 0.016 NT-Pro-B Natriuret Pep 8960 H 05/03/19 05/03/19 05/03/19 08:20 08:20 14:08 Creatine Kinase 28 L 24 L Troponin I 0.015 NT-Pro-B Natriuret Pep 05/03/19 05/05/19 05/06/19 14:08 05:00 10:25 Creatine Kinase Troponin I 0.015 NT-Pro-B Natriuret Pep 82403 H 88076 H 05/08/19 05/09/19 07:37 07:40 Creatine Kinase Troponin I NT-Pro-B Natriuret Pep 62273 H 81440 H Impressions: Abdomen X-Ray 05/02/19 00:00 IMPRESSION: 1. No acute abdominal findings Chest X-Ray 05/07/19 00:00 IMPRESSION: Bilateral pneumonia. No significant change. Assessment and Plan - Diagnosis (1) Tobacco abuse Is this a current diagnosis for this admission?: Yes (2) Dependence on supplemental oxygen Is this a current diagnosis for this admission?: Yes (3) Atrial fibrillation Qualifiers: Atrial fibrillation type: unspecified Qualified Code(s): I48.91 - Unspecified atrial fibrillation Is this a current diagnosis for this admission?: Yes (4) Pneumonia Qualifiers: Pneumonia type: due to unspecified organism Laterality: unspecified laterality Lung location: unspecified part of lung Qualified Code(s): J18.9 - Pneumonia, unspecified organism Is this a current diagnosis for this admission?: Yes (5) CHF (congestive heart failure) Qualifiers: Heart failure type: unspecified Heart failure chronicity: unspecified Qualified Code(s): I50.9 - Heart failure, unspecified Is this a current diagnosis for this admission?: Yes (6) Anxiety Is this a current diagnosis for this admission?: Yes - Plan Summary Summary: Anticipate discharge tomorrow. Patient states she has a home nurse and bedside commode. Also states that she has her oxygen at home. 05/05/2019 She is complaining of increased shortness of breath this morning. Portable chest x-ray shows significant increase in CHF. BNP is elevated up from admission 896 [id number] Patient was taking Lasix 20 mg twice daily at home, or at least supposed to be taking it. Give a stat dose of Lasix 40 mg IV now and then 20 mg IV every 12 hours. BUN this morning of 36 creatinine 1.05 White count stable 7.1. She is currently on Zithromax and Rocephin as well as prednisone. reportably she is allergic to prednisone and the cephalosporins, tolerating them well. Patient is in no condition to be discharged today, will see how she responds to IV Lasix 05/06/2019 She is significantly improved this morning probably secondary to the increase in IV Lasix. Patient sleeping rouses easily Patient's last saturation was 97% this morning on 3.5 L of oxygen. Patient does use oxygen at home at 3 L Patient's she is not ready to go home yet, agree that 1 more day of IV antibiotics and IV Lasix would be indicated. Hopefully we can discharge tomorrow 05/07/2019 Had a long discussion today with discharge planning as well as the patient and her son patient has been in the hospital and/or emergency room 13 times this year with 11 of those times being called by ambulance. Her son asked if she is a candidate for nursing facility. I have told him that certainly she does not seem to be doing well at home even though she has multiple services at home that assist her with her care. I reviewed patient's chest x-ray from today as well as previous chest x-rays. Feel that the changes in the right lower lobe are due to pneumonia as opposed to CHF. SHe is currently taking Lasix 20 mg twice daily. Patient goes home I am going to discharge her on Levaquin 500 mg 7 tablets 1 tablet daily. Her O2 sats are in the 90s on her 3 L which is what she uses at home. Patient will be seen by PT today. Discharge planning will talk to the family and patient once again 05/08/2019 PASRR has been submitted. Patient is feeling much better today and actually as gin to go home, less shortness of breath.. O2 sat 93% on 3 L which is probably her baseline. Labs are very stable, BNP is back down to 13,800 today Waiting care home placement, get ID consult today 05/09/2019 Patient's vital signs are actually stable [employer] is coming down slowly patient has no peripheral edema at all DC her antibiotics as suggested by infectious disease will give patient an extra dose of Lasix today Patient is medically stable for discharge to detention facility when bed available - Time Time Spent with patient: 25-34 minutes
[2019-05-09] MEDS ORDERED: FUROSEMIDE INJ/PF 40 MG/4 ML SDV IV ONE (10:40)
[2019-05-09] MEDS: IPRATROPIUM/ALBUTEROL 0.5-2.5 MG/3 ML AMPUL NEB PRN (12:23)
[2019-05-09] MEDS: LORAZEPAM 0.5 MG TABLET PO PRN (21:52)
[2019-05-09] MEDS: MESALAMINE 400 MG CAPSULE.DR PO SCH (21:52)
[2019-05-09] MEDS: ATORVASTATIN CALCIUM 20 MG TABLET PO SCH (21:53)
[2019-05-09] MEDS: OXYBUTYNIN CHLORIDE 5 MG TABLET PO SCH (21:53)
[2019-05-09] MEDS: ALBUTEROL SULFATE HFA (90 MCG/PUFF) 200 PUFF/8.5 GM MDI IH PRN (22:02)
[2019-05-10] MEDS: LEVALBUTEROL HCL NEB 1.25 MG/3 ML AMPUL NEB SCH ×4 (00:02→23:57)
[2019-05-10] MEDS: GUAIFENESIN SYRP 200 MG/10 ML UDC PO PRN ×2 (04:00→21:16)
[2019-05-10] MEDS: HYDRALAZINE HCL 50 MG TABLET PO SCH ×3 (05:27→21:14)
[2019-05-10 08:45] LABS: ABSOLUTE BASOPHILS # (AUTO) 0.1 10^3/uL (0.0-0.2); ABSOLUTE EOSINOPHILS # (AUTO) 0.2 10^3/uL (0.0-0.6); ABSOLUTE MONOCYTES (AUTO) 0.4 10^3/uL (0.1-1.4); ABSOLUTE NEUT (AUTO) 4.1 10^3/uL (1.7-8.2); EOSINOPHILS % (AUTO) 3.9 % (0-6); HEMATOCRIT 28.4 % (36.0-47.0); HEMOGLOBIN 9.2 g/dL (12.0-15.5); LYMPHOCYTES % (AUTO) 17.1 % (13-45); MEAN CORPUSCULAR HEMOGLOBIN 25.3 pg (27.0-33.4); MEAN CORPUSCULAR HGB CONC 32.3 g/dL (32.0-36.0); MEAN CORPUSCULAR VOLUME 78 fl (80-97); MONOCYTES % (AUTO) 6.5 % (3-13); PLATELET COUNT 185 10^3/uL (150-450); RED BLOOD COUNT 3.62 10^6/uL (3.72-5.28); RED CELL DISTRIBUTION WIDTH 21.7 % (11.5-14.0); SEGMENTED NEUTROPHILS % (AUTO) 71.5 % (42-78); TOTAL CELLS COUNTED % (AUTO) 100 %; WHITE BLOOD COUNT 5.7 10^3/uL (4.0-10.5)
[2019-05-10 09:03] LABS: ANION GAP 5 (5-19); BLOOD UREA NITROGEN 21 mg/dL (7-20); CALCIUM 8.4 mg/dL (8.4-10.2); CARBON DIOXIDE 38 mmol/L (22-30); CHLORIDE 98 mmol/L (98-107); GLUCOSE 85 mg/dL (75-110); POTASSIUM 3.9 mmol/L (3.6-5.0)
[2019-05-10] MEDS: DOCUSATE SODIUM 100 MG CAPSULE PO SCH ×2 (10:09→17:07)
[2019-05-10] MEDS: METOPROLOL TARTRATE 50 MG TABLET PO SCH ×2 (10:11→21:14)
[2019-05-10] MEDS: ASPIRIN 81 MG TABLET, ENT COATED PO SCH (10:11)
[2019-05-10] MEDS: LOSARTAN POTASSIUM 50 MG TABLET PO SCH (10:11)
[2019-05-10] MEDS: FLUTICASONE NASAL SPRAY 50 MCG/SPRY 120 SPRAY/16 GM NASL SCH ×2 (10:11→21:16)
[2019-05-10] MEDS: APIXABAN 5 MG TABLET PO SCH (10:11)
[2019-05-10] MEDS: FERROUS SULFATE 325 MG TABLET PO SCH (10:11)
--- NOTE | 2019-05-10 10:50 | RADIOLOGY REPORT (SQ) ---
EXAM DESCRIPTION: CHEST 2 VIEWS COMPLETED DATE/TIME: 05/10/2019 10:10 am REASON FOR STUDY: SOB COMPARISON: 05/07/2019 TECHNIQUE: Frontal and lateral radiographic views of the chest acquired. NUMBER OF VIEWS: Two view. LIMITATIONS: None. FINDINGS: LUNGS AND PLEURA: Abnormal opacity in the right lung base, airspace disease with volume lo ss and moderate pleural effusion. The fluid may be slightly progressive. Improved aeration left bas e. No pneumothorax. Hyperinflated lungs. MEDIASTINUM AND HILAR STRUCTURES: Stable. HEART AND VASCULAR STRUCTURES: Stable. BONES: No acute findings. HARDWARE: None in the chest. OTHER: No other significant finding. IMPRESSION: 1. Possibly worsening right basilar findings, pleural effusion looks worse. 2. Improved left basilar aeration. TECHNICAL DOCUMENTATION: JOB ID: [id number] [employer]- All Rights Reserved Reading location - IP/workstation name: [email or web address]
--- NOTE | 2019-05-10 11:21 | PDOC PROGRESS REPORT ---
Subjective Progress Note for:: 05/10/19 Reason For Visit: SOB,AFIB,CHF 05/10/2019 Increasing right-sided pleural effusion Physical Exam Vital Signs: Temp Pulse Resp BP Pulse Ox 97.9 F 93 20 130/70 H 96 05/10/19 07:52 05/10/19 07:52 05/10/19 07:52 05/10/19 07:52 05/10/19 09:50 Intake & Output 05/09/19 05/10/19 05/11/19 07:59 06:59 06:59 Intake Total Output Total Balance Weight General appearance: PRESENT: no acute distress, other - Sitting up in the bed talking to me in full sentences in no respiratory distress Respiratory exam: PRESENT: decreased breath sounds - Right base, other - No obvious crackles Cardiovascular exam: PRESENT: RRR. ABSENT: diastolic murmur, rubs, systolic murmur Neurological exam: PRESENT: alert, awake, oriented to person, oriented to place, oriented to time, oriented to situation, CN II-XII grossly intact, other - confused at times. ABSENT: motor sensory deficit Psychiatric exam: PRESENT: appropriate affect, normal mood. ABSENT: homicidal ideation, suicidal ideation Results Laboratory Results: 05/10/19 07:59 05/10/19 07:59 05/10/19 05/10/19 07:59 07:59 WBC 5.7 RBC 3.62 L Hgb 9.2 L Hct 28.4 L MCV 78 L MCH 25.3 L MCHC 32.3 RDW 21.7 H Plt Count 185 Seg Neutrophils % 71.5 Sodium 140.6 Potassium 3.9 Chloride 98 Carbon Dioxide 38 H Anion Gap 5 BUN 21 H Creatinine 0.94 Est GFR ( Amer) > 60 Glucose 85 Calcium 8.4 05/04/19 14:29 Blood Blood Culture - Final NO GROWTH IN 5 DAYS 05/04/19 13:28 Blood Blood Culture - Final NO GROWTH IN 5 DAYS 05/02/19 05/02/19 05/03/19 19:57 19:57 01:34 Creatine Kinase 29 L Troponin I 0.017 0.016 NT-Pro-B Natriuret Pep 8960 H 05/03/19 05/03/19 05/03/19 08:20 08:20 14:08 Creatine Kinase 28 L 24 L Troponin I 0.015 NT-Pro-B Natriuret Pep 05/03/19 05/05/19 05/06/19 14:08 05:00 10:25 Creatine Kinase Troponin I 0.015 NT-Pro-B Natriuret Pep 44974 H 15404 H 05/08/19 05/09/19 05/10/19 07:37 07:40 07:59 Creatine Kinase Troponin I NT-Pro-B Natriuret Pep 13274 H 24959 H 8890 H Impressions: Abdomen X-Ray 05/02/19 00:00 IMPRESSION: 1. No acute abdominal findings Chest X-Ray 05/10/19 00:00 IMPRESSION: 1. Possibly worsening right basilar findings, pleural effusion looks worse. 2. Improved left basilar aeration. Assessment and Plan - Diagnosis (1) Tobacco abuse Is this a current diagnosis for this admission?: Yes (2) Dependence on supplemental oxygen Is this a current diagnosis for this admission?: Yes (3) Atrial fibrillation Qualifiers: Atrial fibrillation type: unspecified Qualified Code(s): I48.91 - Unspecified atrial fibrillation Is this a current diagnosis for this admission?: Yes (4) Pneumonia Qualifiers: Pneumonia type: due to unspecified organism Laterality: unspecified laterality Lung location: unspecified part of lung Qualified Code(s): J18.9 - Pneumonia, unspecified organism Is this a current diagnosis for this admission?: Yes (5) CHF (congestive heart failure) Qualifiers: Heart failure type: unspecified Heart failure chronicity: unspecified Qualified Code(s): I50.9 - Heart failure, unspecified Is this a current diagnosis for this admission?: Yes (6) Anxiety Is this a current diagnosis for this admission?: Yes (7) Pleural effusion Is this a current diagnosis for this admission?: Yes - Plan Summary Summary: Anticipate discharge tomorrow. Patient states she has a home nurse and bedside commode. Also states that she has her oxygen at home. 05/05/2019 She is complaining of increased shortness of breath this morning. Portable chest x-ray shows significant increase in CHF. BNP is elevated up from admission [id number] Patient was taking Lasix 20 mg twice daily at home, or at least supposed to be taking it. Give a stat dose of Lasix 40 mg IV now and then 20 mg IV every 12 hours. BUN this morning of 36 creatinine 1.05 White count stable 7.1. She is currently on Zithromax and Rocephin as well as prednisone. reportably she is allergic to prednisone and the cephalosporins, tolerating them well. Patient is in no condition to be discharged today, will see how she responds to IV Lasix 05/06/2019 She is significantly improved this morning probably secondary to the increase in IV Lasix. Patient sleeping rouses easily Patient's last saturation was 97% this morning on 3.5 L of oxygen. Patient does use oxygen at home at 3 L Patient's she is not ready to go home yet, agree that 1 more day of IV antibiotics and IV Lasix would be indicated. Hopefully we can discharge tomorrow 05/07/2019 Had a long discussion today with discharge planning as well as the patient and her son patient has been in the hospital and/or emergency room 13 times this y ear with 11 of those times being called by ambulance. Her son asked if she is a candidate for nursing facility. I have told him that certainly she does not seem to be doing well at home even though she has multiple services at home that assist her with her care. I reviewed patient's chest x-ray from today as well as previous chest x-rays. Feel that the changes in the right lower lobe are due to pneumonia as opposed to CHF. SHe is currently taking Lasix 20 mg twice daily. Patient goes home I am going to discharge her on Levaquin 500 mg 7 tablets 1 tablet daily. Her O2 sats are in the 90s on her 3 L which is what she uses at home. Patient will be seen by PT today. Discharge planning will talk to the family and patient once again 05/08/2019 PASRR has been submitted. Patient is feeling much better today and actually asking to go home, less shortness of breath.. O2 sat 93% on 3 L which is probably her baseline. Labs are very stable, BNP is back down to 13,800 today Waiting assisted placement, get ID consult today 05/09/2019 Patient's vital signs are actually stable BRICK KILN BURNER is coming down slowly patient has no peripheral edema at all DC her antibiotics as suggested by infectious disease will give patient an extra dose of Lasix today Patient is medically stable for discharge to assisted facility when bed available 05/10/2019 Patient's right sided pleural effusion is getting larger. Patient is continued shortness of breath and therefore will have this drained by radiology. She is pneumonia is basically cleared, patient's CHF is nonsymptomatic. Peripheral edema BNP is coming down Patient's renal functions are improving patient's white count is normal We will get this pleural effusion drained today prior to her discharge to assisted facility Patient is medically stable in no distress - Time Time Spent with patient: 25-34 minutes
[2019-05-10] MEDS: OXYBUTYNIN CHLORIDE 5 MG TABLET PO SCH (21:14)
[2019-05-10] MEDS: ATORVASTATIN CALCIUM 20 MG TABLET PO SCH (21:14)
[2019-05-10] MEDS: LORAZEPAM 0.5 MG TABLET PO PRN (21:15)
[2019-05-10] MEDS: MESALAMINE 400 MG CAPSULE.DR PO SCH (21:15)
[2019-05-10] MEDS: ACETAMINOPHEN 325 MG TABLET PO PRN (21:15)
[2019-05-11] MEDS: ALBUTEROL SULFATE HFA (90 MCG/PUFF) 200 PUFF/8.5 GM MDI IH PRN (04:28)
[2019-05-11] MEDS: ACETAMINOPHEN 325 MG TABLET PO PRN (04:31)
[2019-05-11 05:35] LABS: INTERNATIONAL RATION (INR) 1.23; PROTHROMBIN TIME 15.6 SEC (11.4-15.4)
[2019-05-11] MEDS: HYDRALAZINE HCL 50 MG TABLET PO SCH ×3 (06:21→21:57)
[2019-05-11] MEDS: LEVALBUTEROL HCL NEB 1.25 MG/3 ML AMPUL NEB SCH ×2 (07:39→16:03)
[2019-05-11] MEDS: DOCUSATE SODIUM 100 MG CAPSULE PO SCH ×2 (10:18→17:28)
[2019-05-11] MEDS: FERROUS SULFATE 325 MG TABLET PO SCH (10:19)
[2019-05-11] MEDS: METOPROLOL TARTRATE 50 MG TABLET PO SCH ×2 (10:19→21:57)
[2019-05-11] MEDS: ASPIRIN 81 MG TABLET, ENT COATED PO SCH (10:19)
[2019-05-11] MEDS: LOSARTAN POTASSIUM 50 MG TABLET PO SCH (10:20)
[2019-05-11] MEDS: CALCITRIOL 0.25 MCG CAPSULE PO SCH (10:21)
[2019-05-11] MEDS: FLUTICASONE NASAL SPRAY 50 MCG/SPRY 120 SPRAY/16 GM NASL SCH ×2 (10:22→21:57)
--- NOTE | 2019-05-11 10:54 | PDOC PROGRESS REPORT ---
Subjective Progress Note for:: 05/11/19 Reason For Visit: SOB,AFIB,CHF 05/11/2019 Patient's current problem is a right-sided pleural effusion needing thoracentesis. However radiology has a policy that it cannot be done within 48 hours of a dose of Eliquis. It was discontinued yesterday morning so she has been off of it for only 24 hours and thoracentesis cannot be done until tomorrow morning. Following thoracentesis if patient is stable she can be discharged to halfway facility. Physical Exam Vital Signs: Temp Pulse Resp BP Pulse Ox 97.7 F 98 18 119/68 98 05/11/19 09:02 05/11/19 09:02 05/11/19 09:02 05/11/19 09:02 05/11/19 09:02 Intake & Output 05/10/19 05/11/19 05/12/19 06:59 06:59 06:59 Intake Total 1610 Output Total Balance 1610 Weight 65.6 kg General appearance: PRESENT: no acute distress, other - Sitting up in bed talking in full sentences, more agitated, very forgetful Respiratory exam: PRESENT: decreased breath sounds Cardiovascular exam: PRESENT: RRR. ABSENT: diastolic murmur, rubs, systolic mu rmur Neurological exam: PRESENT: alert, awake, oriented to person, oriented to place Psychiatric exam: PRESENT: agitated, anxious, unusual affect - Patient somewhat angry and hostile Results Laboratory Results: 05/10/19 07:59 05/10/19 07:59 05/02/19 05/02/19 05/03/19 19:57 19:57 01:34 Creatine Kinase 29 L Troponin I 0.017 0.016 NT-Pro-B Natriuret Pep 8960 H 05/03/19 05/03/19 05/03/19 08:20 08:20 14:08 Creatine Kinase 28 L 24 L Troponin I 0.015 NT-Pro-B Natriuret Pep 05/03/19 05/05/19 05/06/19 14:08 05:00 10:25 Creatine Kinase Troponin I 0.015 NT-Pro-B Natriuret Pep 94109 H 91073 H 05/08/19 05/09/19 05/10/19 07:37 07:40 07:59 Creatine Kinase Troponin I NT-Pro-B Natriuret Pep 58829 H 59210 H 8890 H Impressions: Abdomen X-Ray 05/02/19 00:00 IMPRESSION: 1. No acute abdominal findings Chest X-Ray 05/10/19 00:00 IMPRESSION: 1. Possibly worsening right basilar findings, pleural effusion looks worse. 2. Improved left basilar aeration. Assessment and Plan - Diagnosis (1) Tobacco abuse Is this a current diagnosis for this admission?: Yes (2) Dependence on supplemental oxygen Is this a current diagnosis for this admission?: Yes (3) Atrial fibrillation Qualifiers: Atrial fibrillation type: unspecified Qualified Code(s): I48.91 - Unspecified atrial fibrillation Is this a current diagnosis for this admission?: Yes (4) Pneumonia Qualifiers: Pneumonia type: due to unspecified organism Laterality: unspecified laterality Lung location: unspecified part of lung Qualified Code(s): J18.9 - Pneumonia, unspecified organism Is this a current diagnosis for this admission?: Yes (5) CHF (congestive heart failure) Qualifiers: Heart failure type: unspecified Heart failure chronicity: unspecified Qualified Code(s): I50.9 - Heart failure, unspecified Is this a current diagnosis for this admission?: Yes (6) Anxiety Is this a current diagnosis for this admission?: Yes (7) Pleural effusion Is this a current diagnosis for this admission?: Yes - Plan Summary Summary: Anticipate discharge tomorrow. Patient states she has a home nurse and bedside commode. Also states that she has her oxygen at home. 05/05/2019 She is complaining of increased shortness of breath this morning. Portable chest x-ray shows significant increase in CHF. BNP is elevated up from admission [id number] Patient was taking Lasix 20 mg twice daily at home, or at least supposed to be taking it. Give a stat dose of Lasix 40 mg IV now and then 20 mg IV every 12 hours. BUN this morning of 36 creatinine 1.05 White count stable 7.1. She is currently on Zithromax and Rocephin as well as prednisone. reportably she is allergic to prednisone and the cephalosporins, tolerating them well. Patient is in no condition to be discharged today, will see how she responds to IV Lasix 05/06/2019 She is significantly improved this morning probably secondary to the increase in IV Lasix. Patient sleeping rouses easily Patient's last saturation was 97% this morning on 3.5 L of oxygen. Patient does use oxygen at home at 3 L Patient's she is not ready to go home yet, agree that 1 more day of IV antibiotics and IV Lasix would be indicated. Hopefully we can discharge tomorrow 05/07/2019 Had a long discussion today with discharge planning as well as the patient and her son patient has been in the hospital and/or emergency room 13 times this year with 11 of those times being called by ambulance. Her son asked if she is a candidate for nursing facility. I have told him that certainly she does not seem to be doing well at home even though she has multiple services at home that assist her with her care. I reviewed patient's chest x-ray from today as well as previous chest x-rays. Feel that the changes in the right lower lobe are due to pneumonia as opposed to CHF. SHe is currently taking Lasix 20 mg twice daily. Patient goes home I am going to discharge her on Levaquin 500 mg 7 tablets 1 tablet daily. Her O2 sats are in the 90s on her 3 L which is what she uses at home. Patient will be seen by PT today. Discharge planning will talk to the family and patient once again 05/08/2019 PASRR has been submitted. Patient is feeling much better today and actually asking to go home, less shortness of breath.. O2 sat 93% on 3 L which is probably her baseline. Labs are very stable, BNP is back down to 13,800 today Waiting residential placement, get ID consult today 05/09/2019 Patient's vital signs are actually stable BNP is coming down slowly patient has no peripheral edema at all DC her antibiotics as suggested by infectious disease will give patient an extra dose of Lasix today Patient is medically stable for discharge to halfway facility when bed available 05/10/2019 Patient's right sided pleural effusion is getting larger. Patient is continued shortness of breath and therefore will have this drained by radiology. Her pneumonia is basically cleared, patient's CHF is nonsymptomatic. No peripheral edema, BNP is coming down Patient's renal functions are improving, patient's white count is normal We will get this pleural effusion drained today prior to her discharge to halfway facility Patient is medically stable in no distress 05/11/2019 Patient was supposed to get a thoracentesis this morning for her right sided pleural effusion, ever because she has not been off of Eliquis for 48 hours they would not do the procedure. Tomorrow morning will be 48 hours I have spent well over 30 minutes talking to the patient and her family this morning about the procedure, being discharged to the nursing facility, now the procedure was canceled. I am honestly not even sure if she will be discharged to halfway facility tomorrow depending on what time the thoracentesis is performed. Also I am waiting on discharge planning to put a note on the chart stating that she has a bed available and has been accepted. When patient is discharged she will need no antibiotics, will need her Eliquis 5 mg twice daily 48 hours after the procedure is done her other meds she is been on here in the hospital. My prediction is that the patient will discharge herself from the halfway facility within 48 hours of arrival, back to home. - Time Time Spent with patient: 35 or more minutes
[2019-05-11] MEDS: APIXABAN 5 MG TABLET PO SCH (17:27)
[2019-05-11] MEDS: MESALAMINE 400 MG CAPSULE.DR PO SCH (21:57)
[2019-05-11] MEDS: ATORVASTATIN CALCIUM 20 MG TABLET PO SCH (21:57)
[2019-05-11] MEDS: OXYBUTYNIN CHLORIDE 5 MG TABLET PO SCH (21:58)
[2019-05-12] MEDS: LEVALBUTEROL HCL NEB 1.25 MG/3 ML AMPUL NEB SCH ×3 (00:06→16:01)
[2019-05-12] MEDS: HYDRALAZINE HCL 50 MG TABLET PO SCH ×3 (05:15→21:28)
--- NOTE | 2019-05-12 09:44 | RADIOLOGY REPORT (SQ) ---
EXAM DESCRIPTION: CHEST SINGLE VIEW COMPLETED DATE/TIME: 05/12/2019 9:33 am REASON FOR STUDY: post thora COMPARISON: 05/10/2019 EXAM PARAMETERS: NUMBER OF VIEWS: One view. TECHNIQUE: Single frontal radiographic view of the chest acquired. RADIATION DOSE: NA LIMITATIONS: None. FINDINGS: LUNGS AND PLEURA: Decreased size of the right-sided pleural effusion status post thoracent esis. Mild residual bilateral effusions, right greater than left. No pneumothorax. Associated basi lar atelectasis. Emphysematous change. MEDIASTINUM AND HILAR STRUCTURES: No masses. Contour normal. HEART AND VASCULAR STRUCTURES: Normal heart size. Aortic atherosclerosis. BONES: No acute findings. HARDWARE: None in the chest. OTHER: No other significant finding. IMPRESSION: Decreased size of the right-sided pleural effusion status post thoracentesis. No pneumo thorax. Mild residual bilateral effusions, right greater than left. TECHNICAL DOCUMENTATION: JOB ID: [id number] [employer]- All Rights Reserved Reading location - IP/workstation name: [email or web address]
[2019-05-12] MEDS: DOCUSATE SODIUM 100 MG CAPSULE PO SCH ×2 (10:03→17:38)
[2019-05-12] MEDS: FERROUS SULFATE 325 MG TABLET PO SCH (10:03)
[2019-05-12] MEDS: LOSARTAN POTASSIUM 50 MG TABLET PO SCH (10:03)
[2019-05-12] MEDS: METOPROLOL TARTRATE 50 MG TABLET PO SCH ×2 (10:03→21:29)
[2019-05-12] MEDS: APIXABAN 5 MG TABLET PO SCH ×2 (10:04→17:38)
[2019-05-12] MEDS: ASPIRIN 81 MG TABLET, ENT COATED PO SCH (10:04)
[2019-05-12] MEDS: FLUTICASONE NASAL SPRAY 50 MCG/SPRY 120 SPRAY/16 GM NASL SCH ×2 (10:05→21:28)
[2019-05-12 11:00] LABS: FLUID APPEARANCE CLEAR; FLUID COLOR YELLOW; FLUID SOURCE LUNG; FLUID TYPE PLEURAL; FLUID VISCOSITY LIQUID
--- NOTE | 2019-05-12 11:03 | RADIOLOGY REPORT (SQ) ---
EXAM DESCRIPTION: U/S THORACENTESIS WITH IMAGING COMPLETED DATE/TIME: 05/12/2019 9:57 am REASON FOR STUDY: increasing right sided, SOB COMPARISON: 05/10/2019 radiograph LIMITATIONS: None. PROCEDURE: Procedure, risks, benefit, and alternative explained to patient who then gave written con sent. The posterior right chest wall was marked using ultrasound guidance. A time-out was called fo r correct marking verification. Chest prepped and draped using sterile technique. Local anesthesia a chieved using 10 ml of 1% lidocaine injection. A 5fr needle/catheter set was introduced into the rig ht pleural space. Fluid was aspirated. The catheter was removed and the entry site was covered with sterile bandage. No immediate complications noted. Images acquired during the procedure were stored on PACS. FINDINGS: ENTRY SITE: posterior right chest. FLUID VOLUME: 800 cc FLUID ANALYSIS: Straw-colored OTHER: Fluid sent to the lab for testing. IMPRESSION: SUCCESSFUL RIGHT-SIDED THORACENTESIS USING ULTRASOUND GUIDANCE. COMMENT: Patient medication list reviewed: Yes- Quality ID# [id number]:Eligible professional attests to doc umenting in the medical record they obtained, updated, or reviewed the patient's current medications. TECHNICAL DOCUMENTATION: JOB ID: [id number] [email or web address]- All Rights Reserved Reading location - IP/workstation name: [email or web address]
--- NOTE | 2019-05-12 12:44 | RADIOLOGY REPORT (SQ) ---
EXAM DESCRIPTION: CHEST SINGLE VIEW COMPLETED DATE/TIME: 05/12/2019 12:25 pm REASON FOR STUDY: 2 hour post thora COMPARISON: 05/12/2019 EXAM PARAMETERS: NUMBER OF VIEWS: One view. TECHNIQUE: Single frontal radiographic view of the chest acquired. RADIATION DOSE: NA LIMITATIONS: None. FINDINGS: LUNGS AND PLEURA: Small residual right pleural effusion. No pneumothorax. MEDIASTINUM AND HILAR STRUCTURES: No masses. Contour normal. HEART AND VASCULAR STRUCTURES: Cardiomegaly. No pulmonary edema. BONES: No acute findings. HARDWARE: None in the chest. OTHER: No other significant finding. IMPRESSION: Cardiomegaly without pulmonary edema. No pneumothorax. Residual right pleural effusion . TECHNICAL DOCUMENTATION: JOB ID: [id number] [employer]- All Rights Reserved Reading location - IP/workstation name: [email or web address]
--- NOTE | 2019-05-12 14:44 | PDOC PROGRESS REPORT ---
Subjective Progress Note for:: 05/12/19 Subjective:: Patient states that she has been on no change in terms of her breathing following the thoracentesis. She denies any worsening of her dyspnea. Reason For Visit: SOB,AFIB,CHF Physical Exam Vital Signs: Temp Pulse Resp BP Pulse Ox 97.8 F 93 16 96/55 L 100 05/12/19 11:15 05/12/19 14:00 05/12/19 11:15 05/12/19 11:16 05/12/19 11:16 Intake & Output 05/11/19 05/12/19 05/13/19 06:59 06:59 06:59 Intake Total 1610 835 240 Output Total 250 Balance 1610 585 240 Weight 65.6 kg 67.6 kg Results Laboratory Results: 05/10/19 07:59 05/10/19 07:59 05/12/19 05/12/19 09:00 11:09 Total Protein 5.5 L Fluid Type PLEURAL Fluid Source LUNG Fluid Color YELLOW Fluid Appearance CLEAR Fluid Viscosity LIQUID Fluid WBC 247 Fluid RBC 1055 05/02/19 05/02/19 05/03/19 19:57 19:57 01:34 Creatine Kinase 29 L Troponin I 0.017 0.016 NT-Pro-B Natriuret Pep 8960 H 05/03/19 05/03/19 05/03/19 08:20 08:20 14:08 Creatine Kinase 28 L 24 L Troponin I 0.015 NT-Pro-B Natriuret Pep 05/03/19 05/05/19 05/06/19 14:08 05:00 10:25 Creatine Kinase Troponin I 0.015 NT-Pro-B Natriuret Pep 15947 H 80544 H 05/08/19 05/09/19 05/10/19 07:37 07:40 07:59 Creatine Kinase Troponin I NT-Pro-B Natriuret Pep 23012 H 73220 H 8890 H Impressions: Abdomen X-Ray 05/02/19 00:00 IMPRESSION: 1. No acute abdominal findings Thoracentesis Ultrasound 05/12/19 00:00 IMPRESSION: SUCCESSFUL RIGHT-SIDED THORACENTESIS USING ULTRASOUND GUIDANCE. Chest X-Ray 05/12/19 11:12 IMPRESSION: Cardiomegaly without pulmonary edema. No pneumothorax. Residual right pleural effusion. Assessment and Plan - Diagnosis (1) COPD with acute exacerbation Is this a current diagnosis for this admission?: Yes (2) Atrial fibrillation with rapid ventricular response Is this a current diagnosis for this admission?: Yes (3) Community acquired bacterial pneumonia Is this a current diagnosis for this admission?: Yes (4) Acute exacerbation of CHF (congestive heart failure) Qualifiers: Heart failure type: unspecified Qualified Code(s): I50.9 - Heart failure, unspecified Is this a current diagnosis for this admission?: Yes (5) Iron deficiency anemia Is this a current diagnosis for this admission?: Yes (6) Acute on chronic respiratory failure with hypoxia Is this a current diagnosis for this admission?: Yes (7) Pleural effusion Is this a current diagnosis for this admission?: Yes - Plan Summary Summary: Anticipate discharge tomorrow. Patient states she has a home nurse and bedside commode. Also states that she has her oxygen at home. 05/05/2019 She is complaining of increased shortness of breath this morning. Portable chest x-ray shows significant increase in CHF. BNP is elevated up from admission [id number] [id number] Patient was taking Lasix 20 mg twice daily at home, or at least supposed to be taking it. Give a stat dose of Lasix 40 mg IV now and then 20 mg IV every 12 hours. BUN this morning of 36 creatinine 1.05 White count stable 7.1. She is currently on Zithromax and Rocephin as well as prednisone. reportably she is allergic to prednisone and the cephalosporins, tolerating them well. Patient is in no condition to be discharged today, will see how she responds to IV Lasix 05/06/2019 She is significantly improved this morning probably secondary to the increase in IV Lasix. Patient sleeping rouses easily Patient's last saturation was 97% this morning on 3.5 L of oxygen. Patient does use oxygen at home at 3 L Patient's she is not ready to go home yet, agree that 1 more day of IV antibiotics and IV Lasix would be indicated. Hopefully we can discharge tomorrow 05/07/2019 Had a long discussion today with discharge planning as well as the patient and her son patient has been in the hospital and/or emergency room 13 times this year with 11 of those times being called by ambulance. Her son asked if she is a candidate for nursing facility. I have told him that certainly she does not seem to be doing well at home even though she has multiple services at home that assist her with her care. I reviewed patient's chest x-ray from today as well as previous chest x-rays. Feel that the changes in the right lower lobe are due to pneumonia as opposed to CHF. SHe is currently taking Lasix 20 mg twice daily. Patient goes home I am going to discharge her on Levaquin 500 mg 7 tablets 1 tablet daily. Her O2 sats are in the 90s on her 3 L which is what she uses at home. Patient will be seen by PT today. Discharge planning will talk to the family and patient once again 05/08/2019 PASRR has been submitted. Patient is feeling much better today and actually asking to go home, less shortness of breath.. O2 sat 93% on 3 L which is probably her baseline. Labs are very stable, BNP is back down to 13,800 today Waiting [facility] placement, get ID consult today 05/09/2019 Patient's vital signs are actually stable BNP is coming down slowly patient has no peripheral edema at all DC her antibiotics as suggested by infectious disease will give patient an extra dose of Lasix today Patient is medically stable for discharge to snf facility when bed available 05/10/2019 Patient's right sided pleural effusion is getting larger. Patient is continued shortness of breath and therefore will have this drained by radiology. Her pneumonia is basically cleared, patient's CHF is nonsymptomatic. No peripheral edema, BNP is coming down Patient's renal functions are improving, patient's white count is normal We will get this pleural effusion drained today prior to her discharge to snf facility Patient is medically stable in no distress 05/11/2019 Patient was supposed to get a thoracentesis this morning for her right sided pleural effusion, ever because she has not been off of Eliquis for 48 hours they would not do the procedure. Tomorrow morning will be 48 hours I have spent well over 30 minutes talking to the patient and her family this morning about the procedure, being discharged to the nursing facility, now the procedure was canceled. I am honestly not even sure if she will be discharged to snf facility tomorrow depending on what time the thoracentesis is performed. Also I am waiting on discharge planning to put a note on the chart stating that she has a bed available and has been accepted. When patient is discharged she will need no antibiotics, will need her Eliquis 5 mg twice daily 48 hours after the procedure is done her other meds she is been on here in the hospital. My prediction is that the patient will discharge herself from the snf facility within 48 hours of arrival, back to home. 05/12/2019 Patient had thoracentesis performed today. Tolerated procedure without any issues. Postthoracentesis chest x-ray showing improvement of the right-sided pleural effusion without any evidence of pneumothorax. Awaiting thoracentesis labs. Suspect pleural effusion is likely from patient's chronic heart failure. Will follow-up labs. Potential discharge tomorrow pending lab results. We will resume Eliquis tomorrow. - Time Time Spent with patient: 25-34 minutes Anticipated discharge: SNF Within: within 24 hours
[2019-05-12] MEDS: ACETAMINOPHEN 325 MG TABLET PO PRN (15:51)
[2019-05-12] MEDS: ONDANSETRON 4 MG TAB.RAPDIS PO PRN (18:14)
[2019-05-12 21:13] LABS: HEMATOCRIT 26.6 % (36.0-47.0); HEMOGLOBIN 8.6 g/dL (12.0-15.5); MEAN CORPUSCULAR HEMOGLOBIN 25.6 pg (27.0-33.4); MEAN CORPUSCULAR HGB CONC 32.5 g/dL (32.0-36.0); MEAN CORPUSCULAR VOLUME 79 fl (80-97); PLATELET COUNT 182 10^3/uL (150-450); RED BLOOD COUNT 3.39 10^6/uL (3.72-5.28); RED CELL DISTRIBUTION WIDTH 21.8 % (11.5-14.0); WHITE BLOOD COUNT 5.6 10^3/uL (4.0-10.5)
[2019-05-12] MEDS: MESALAMINE 400 MG CAPSULE.DR PO SCH (21:28)
[2019-05-12] MEDS: ATORVASTATIN CALCIUM 20 MG TABLET PO SCH (21:28)
[2019-05-12] MEDS: OXYBUTYNIN CHLORIDE 5 MG TABLET PO SCH (21:28)
[2019-05-12 21:33] LABS: ANION GAP 5 (5-19); BLOOD UREA NITROGEN 29 mg/dL (7-20); CALCIUM 8.6 mg/dL (8.4-10.2); CARBON DIOXIDE 36 mmol/L (22-30); CHLORIDE 98 mmol/L (98-107); GLUCOSE 93 mg/dL (75-110); POTASSIUM 3.8 mmol/L (3.6-5.0)
[2019-05-13] MEDS: LEVALBUTEROL HCL NEB 1.25 MG/3 ML AMPUL NEB SCH ×3 (00:04→16:00)
[2019-05-13] MEDS: HYDRALAZINE HCL 50 MG TABLET PO SCH ×3 (05:51→21:24)
[2019-05-13] MEDS: DOCUSATE SODIUM 100 MG CAPSULE PO SCH ×2 (09:15→18:21)
[2019-05-13] MEDS: CALCITRIOL 0.25 MCG CAPSULE PO SCH (09:19)
[2019-05-13] MEDS: FERROUS SULFATE 325 MG TABLET PO SCH (09:19)
[2019-05-13] MEDS: ASPIRIN 81 MG TABLET, ENT COATED PO SCH (09:20)
[2019-05-13] MEDS: APIXABAN 5 MG TABLET PO SCH ×2 (09:20→17:43)
[2019-05-13] MEDS: FLUTICASONE NASAL SPRAY 50 MCG/SPRY 120 SPRAY/16 GM NASL SCH ×2 (09:20→21:33)
[2019-05-13] MEDS: METOPROLOL TARTRATE 50 MG TABLET PO SCH ×2 (09:32→21:32)
[2019-05-13] MEDS: LOSARTAN POTASSIUM 50 MG TABLET PO SCH (09:32)
[2019-05-13] MEDS: ONDANSETRON 4 MG TAB.RAPDIS PO PRN (13:23)
--- NOTE | 2019-05-13 15:31 | PDOC PROGRESS REPORT ---
Subjective Progress Note for:: 05/13/19 Subjective:: Patient states that she is breathing well. Patient was ambulating without any shortness of breath lightheadedness or dizziness. She still expresses some reluctance towards discharge to SNF. Denies any chest pain. States that she feels weak because her blood pressure was low. Reason For Visit: SOB,AFIB,CHF Physical Exam Vital Signs: Temp Pulse Resp BP Pulse Ox 98.0 F 75 18 109/57 L 97 05/13/19 12:04 05/13/19 12:04 05/13/19 12:04 05/13/19 12:04 05/13/19 12:04 Intake & Output 05/12/19 05/13/19 05/14/19 06:59 06:59 06:59 Intake Total 835 720 Output Total 250 Balance 585 720 Weight 67.6 kg 67 kg General appearance: PRESENT: no acute distress, cooperative Neck exam: ABSENT: tracheal deviation Respiratory exam: PRESENT: clear to auscultation emma, unlabored, wheezes. ABSENT: tachypnea Cardiovascular exam: PRESENT: RRR, +S1, +S2. ABSENT: tachycardia GI/Abdominal exam: PRESENT: normal bowel sounds, soft. ABSENT: firm, guarding, tenderness Musculoskeletal exam: PRESENT: ambulatory Neurological exam: PRESENT: alert, awake, oriented to person, oriented to place, oriented to time, oriented to situation Results Laboratory Results: 05/12/19 21:06 05/12/19 21:06 05/12/19 05/12/19 05/12/19 09:00 09:00 09:00 WBC RBC Hgb Hct MCV MCH MCHC RDW Plt Count Sodium Potassium Chloride Carbon Dioxide Anion Gap BUN Creatinine Est GFR ( Amer) Glucose Calcium Magnesium Fluid Glucose 104 Fluid Total Protein 1.9 Fluid LDH 77 Fluid Amylase 05/12/19 05/12/19 05/12/19 09:00 21:06 21:06 WBC 5.6 RBC 3.39 L Hgb 8.6 L Hct 26.6 L MCV 79 L MCH 25.6 L MCHC 32.5 RDW 21.8 H Plt Count 182 Sodium 138.6 Potassium 3.8 Chloride 98 Carbon Dioxide 36 H Anion Gap 5 BUN 29 H Creatinine 1.15 Est GFR ( Amer) 55 L Glucose 93 Calcium 8.6 Magnesium 2.1 Fluid Glucose Fluid Total Protein Fluid LDH Fluid Amylase 28 05/02/19 05/02/19 05/03/19 19:57 19:57 01:34 Creatine Kinase 29 L Troponin I 0.017 0.016 NT-Pro-B Natriuret Pep 8960 H 05/03/19 05/03/19 05/03/19 08:20 08:20 14:08 Creatine Kinase 28 L 24 L Troponin I 0.015 NT-Pro-B Natriuret Pep 05/03/19 05/05/19 05/06/19 14:08 05:00 10:25 Creatine Kinase Troponin I 0.015 NT-Pro-B Natriuret Pep 42067 H 96769 H 05/08/19 05/09/19 05/10/19 07:37 07:40 07:59 Creatine Kinase Troponin I NT-Pro-B Natriuret Pep 82676 H 38135 H 8890 H Impressions: Abdomen X-Ray 05/02/19 00:00 IMPRESSION: 1. No acute abdominal findings Thoracentesis Ultrasound 05/12/19 00:00 IMPRESSION: SUCCESSFUL RIGHT-SIDED THORACENTESIS USING ULTRASOUND GUIDANCE. Chest X-Ray 05/12/19 11:12 IMPRESSION: Cardiomegaly without pulmonary edema. No pneumothorax. Residual right pleural effusion. Assessment and Plan - Diagnosis (1) COPD with acute exacerbation Is this a current diagnosis for this admission?: Yes (2) Atrial fibrillation with rapid ventricular response Is this a current diagnosis for this admission?: Yes (3) Community acquired bacterial pneumonia Is this a current diagnosis for this admission?: Yes (4) Acute exacerbation of CHF (congestive heart failure) Qualifiers: Heart failure type: unspecified Qualified Code(s): I50.9 - Heart failure, unspecified Is this a current diagnosis for this admission?: Yes (5) Iron deficiency anemia Is this a current diagnosis for this admission?: Yes (6) Acute on chronic respiratory failure with hypoxia Is this a current diagnosis for this admission?: Yes (7) Pleural effusion Is this a current diagnosis for this admission?: Yes - Plan Summary Summary: Anticipate discharge tomorrow. Patient states she has a home nurse and bedside commode. Also states that she has her oxygen at home. 05/05/2019 She is complaining of increased shortness of breath this morning. Portable chest x-ray shows significant increase in CHF. BNP is elevated up from admission [id number] Patient was taking Lasix 20 mg twice daily at home, or at least supposed to be taking it. Give a stat dose of Lasix 40 mg IV now and then 20 mg IV every 12 hours. BUN this morning of 36 creatinine 1.05 White count stable 7.1. She is currently on Zithromax and Rocephin as well as prednisone. reportably she is allergic to prednisone and the cephalosporins, tolerating them well. Patient is in no condition to be discharged today, will see how she responds to IV Lasix 05/06/2019 She is significantly improved this morning probably secondary to the increase in IV Lasix. Patient sleeping rouses easily Patient's last saturation was 97% this morning on 3.5 L of oxygen. Patient does use oxygen at home at 3 L Patient's she is not ready to go home yet, agree that 1 more day of IV antibiotics and IV Lasix would be indicated. Hopefully we can discharge tomorrow 05/07/2019 Had a long discussion today with discharge planning as well as the patient and her son patient has been in the hospital and/or emergency room 13 times this year with 11 of those times being called by ambulance. Her son asked if she is a candidate for nursing facility. I have told him that certainly she does not seem to be doing well at home even though she has multiple services at home that assist her with her care. I reviewed patient's chest x-ray from today as well as previous chest x-rays. Feel that the changes in the right lower lobe are due to pneumonia as opposed to CHF. SHe is currently taking Lasix 20 mg twice daily. Patient goes home I am going to discharge her on Levaquin 500 mg 7 tablets 1 tablet daily. Her O2 sats are in the 90s on her 3 L which is what she uses at home. Patient will be seen by PT today. Discharge planning will talk to the family and patient once again 05/08/2019 PASRR has been submitted. Patient is feeling much better today and actually as gin to go home, less shortness of breath.. O2 sat 93% on 3 L which is probably her baseline. Labs are very stable, BNP is back down to 13,800 today Waiting assisted placement, get ID consult today 05/09/2019 Patient's vital signs are actually stable BNP is coming down slowly patient has no peripheral edema at all DC her antibiotics as suggested by infectious disease will give patient an extra dose of Lasix today Patient is medically stable for discharge to long term facility when bed available 05/10/2019 Patient's right sided pleural effusion is getting larger. Patient is continued shortness of breath and therefore will have this drained by radiology. Her pneumonia is basically cleared, patient's CHF is nonsymptomatic. No peripheral edema, BNP is coming down Patient's renal functions are improving, patient's white count is normal We will get this pleural effusion drained today prior to her discharge to long term facility Patient is medically stable in no distress 05/11/2019 Patient was supposed to get a thoracentesis this morning for her right sided pleural effusion, ever because she has not been off of Eliquis for 48 hours they would not do the procedure. Tomorrow morning will be 48 hours I have spent well over 30 minutes talking to the patient and her family this morning about the procedure, being discharged to the nursing facility, now the procedure was canceled. I am honestly not even sure if she will be discharged to long term facility tomorrow depending on what time the thoracentesis is performed. Also I am waiting on discharge planning to put a note on the chart stating that she has a bed available and has been accepted. When patient is discharged she will need no antibiotics, will need her Eliquis 5 mg twice daily 48 hours after the procedure is done her other meds she is been on here in the hospital. My prediction is that the patient will discharge herself from the long term facility within 48 hours of arrival, back to home. 05/12/2019 Patient had thoracentesis performed today. Tolerated procedure without any issues. Postthoracentesis chest x-ray showing improvement of the right-sided pleural effusion without any evidence of pneumothorax. Awaiting thoracentesis labs. Suspect pleural effusion is likely from patient's chronic heart failure. Will follow-up labs. Potential discharge tomorrow pending lab results. We will resume Eliquis tomorrow. 05/13/2019 Patient was reviewed ambulating well without expression of dyspnea. Thoracentesis yielded clear pleural fluid. Fluid analysis consistent with trans udate fluid likely from congestive heart failure. Gram stain also negative pleural culture. We will continue diuresis with Lasix. Patient should be able to go home tomorrow. Our discussion with patient's son at bedside regarding patient's plan of care and potential disposition. - Time Time Spent with patient: 25-34 minutes
[2019-05-13] MEDS: ACETAMINOPHEN 325 MG TABLET PO PRN (17:43)
[2019-05-13] MEDS: LORAZEPAM 0.5 MG TABLET PO PRN (20:30)
[2019-05-13] MEDS: ATORVASTATIN CALCIUM 20 MG TABLET PO SCH (21:32)
[2019-05-13] MEDS: OXYBUTYNIN CHLORIDE 5 MG TABLET PO SCH (21:32)
[2019-05-13] MEDS: MESALAMINE 400 MG CAPSULE.DR PO SCH (21:32)
[2019-05-14] MEDS: LEVALBUTEROL HCL NEB 1.25 MG/3 ML AMPUL NEB SCH ×2 (00:23→08:21)
[2019-05-14] MEDS: HYDRALAZINE HCL 50 MG TABLET PO SCH (06:07)
[2019-05-14] MEDS: DOCUSATE SODIUM 100 MG CAPSULE PO SCH (09:22)
[2019-05-14] MEDS: FLUTICASONE NASAL SPRAY 50 MCG/SPRY 120 SPRAY/16 GM NASL SCH (09:23)
[2019-05-14] MEDS: FERROUS SULFATE 325 MG TABLET PO SCH (09:28)
[2019-05-14] MEDS: APIXABAN 5 MG TABLET PO SCH (09:28)
[2019-05-14] MEDS: ASPIRIN 81 MG TABLET, ENT COATED PO SCH (09:28)
[2019-05-14] MEDS: LOSARTAN POTASSIUM 50 MG TABLET PO SCH (09:28)
[2019-05-14] MEDS: METOPROLOL TARTRATE 50 MG TABLET PO SCH (09:29)
--- NOTE | 2019-05-14 12:37 | PDOC DISCHARGE SUMMARY ---
Impression - Admit/DC Date/PCP Admission Date/Primary Care Provider: 05/02/19 22:04 CARMELA CARDENAS Discharge Date: 05/14/19 - Discharge Diagnosis (1) COPD with acute exacerbation Is this a current diagnosis for this admission?: Yes (2) Atrial fibrillation with rapid ventricular response Is this a current diagnosis for this admission?: Yes (3) Community acquired bacterial pneumonia Is this a current diagnosis for this admission?: Yes (4) Acute exacerbation of CHF (congestive heart failure) Is this a current diagnosis for this admission?: Yes (5) Iron deficiency anemia Is this a current diagnosis for this admission?: Yes (6) Acute on chronic respiratory failure with hypoxia Is this a current diagnosis for this admission?: Yes (7) Pleural effusion Is this a current diagnosis for this admission?: Yes - Assessment Summary: Anticipate discharge tomorrow. Patient states she has a home nurse and bedside commode. Also states that she has her oxygen at home. 05/05/2019 She is complaining of increased shortness of breath this morning. Portable chest x-ray shows significant increase in CHF. BNP is elevated up from admission [id number] Patient was taking Lasix 20 mg twice daily at home, or at least supposed to be taking it. Give a stat dose of Lasix 40 mg IV now and then 20 mg IV every 12 hours. BUN this morning of 36 creatinine 1.05 White count stable 7.1. She is currently on Zithromax and Rocephin as well as prednisone. reportably she is allergic to prednisone and the cephalosporins, tolerating them well. Patient is in no condition to be discharged today, will see how she responds to IV Lasix 05/06/2019 She is significantly improved this morning probably secondary to the increase in IV Lasix. Patient sleeping rouses easily Patient's last saturation was 97% this morning on 3.5 L of oxygen. Patient does use oxygen at home at 3 L Patient's she is not ready to go home yet, agree that 1 more day of IV antibiotics and IV Lasix would be indicated. Hopefully we can discharge tomorrow 05/07/2019 Had a long discussion today with discharge planning as well as the patient and her son patient has been in the hospital and/or emergency room 13 times this year with 11 of those times being called by ambulance. Her son asked if she is a candidate for nursing facility. I have told him that certainly she does not seem to be doing well at home even though she has multiple services at home that assist her with her care. I reviewed patient's chest x-ray from today as well as previous chest x-rays. Feel that the changes in the right lower lobe are due to pneumonia as opposed to CHF. SHe is currently taking Lasix 20 mg twice daily. Patient goes home I am going to discharge her on Levaquin 500 mg 7 tablets 1 tablet daily. Her O2 sats are in the 90s on her 3 L which is what she uses at home. Patient will be seen by PT today. Discharge planning will talk to the family and patient once again 05/08/2019 PASRR has been submitted. Patient is feeling much better today and actually asking to go home, less shortness of breath.. O2 sat 93% on 3 L which is probably her baseline. Labs are very stable, BNP is back down to 13,800 today Waiting long term placement, get ID consult today 05/09/2019 Patient's vital signs are actually stable BNP is coming down slowly patient has no peripheral edema at all DC her antibiotics as suggested by infectious disease will give patient an extra dose of Lasix today Patient is medically stable for discharge to group home facility when bed available 05/10/2019 Patient's right sided pleural effusion is getting larger. Patient is continued shortness of breath and therefore will have this drained by radiology. Her pneumonia is basically cleared, patient's CHF is nonsymptomatic. No peripheral edema, BNP is coming down Patient's renal functions are improving, patient's white count is normal We will get this pleural effusion drained today prior to her discharge to group home facility Patient is medically stable in no distress 05/11/2019 Patient was supposed to get a thoracentesis this morning for her right sided pleural effusion, ever because she has not been off of Eliquis for 48 hours they would not do the procedure. Tomorrow morning will be 48 hours I have spent well over 30 minutes talking to the patient and her family this morning about the procedure, being discharged to the nursing facility, now the procedure was canceled. I am honestly not even sure if she will be discharged to group home facil ity tomorrow depending on what time the thoracentesis is performed. Also I am waiting on discharge planning to put a note on the chart stating that she has a bed available and has been accepted. When patient is discharged she will need no antibiotics, will need her Eliquis 5 mg twice daily 48 hours after the procedure is done her other meds she is been on here in the hospital. My prediction is that the patient will discharge herself from the group home facility within 48 hours of arrival, back to home. 05/12/2019 Patient had thoracentesis performed today. Tolerated procedure without any issues. Postthoracentesis chest x-ray showing improvement of the right-sided pleural effusion without any evidence of pneumothorax. Awaiting thoracentesis labs. Suspect pleural effusion is likely from patient's chronic heart failure. Will follow-up labs. Potential discharge tomorrow pending lab results. We will resume Eliquis tomorrow. 05/13/2019 Patient was reviewed ambulating well without expression of dyspnea. Thoracentesis yielded clear pleural fluid. Fluid analysis consistent with transudate fluid likely from congestive heart failure. Gram stain also negative pleural culture. We will continue diuresis with Lasix. Patient should be able to go home tomorrow. Our discussion with patient's son at bedside regarding patient's plan of care and potential disposition. 05/14/2019 Patient is doing well today. Ambulated efficiently with physical therapy yesterday without much assistance. As a result patient will be going home with home health and home physical therapy. Will have pulmonary rehab evaluate patient and will likely plan for outpatient pulmonary rehabilitation. Patient was urged on the need for follow-up and the need be compliant with all of patient's medications. Smoking cessation counseling performed thoroughly in the presence of patient's two sons. - Additional Information Resuscitation Status: Full Code Discharge Diet: Cardiac Discharge Activity: Activity As Tolerated, Balance Activity w/Rest, Weigh Daily Referrals: RACHEL MEDRANO FNP [Primary Care Provider] - 05/19/19 8:15 am (Follow up within 1 week CARMELA Cardenas [address] [place] [address] p: [phone] f: [phone] ) Prescriptions: Fluticasone/Vilanterol [Breo Ellipta 200-25 Mcg INH] 1 each IH DAILY #1 inhaler Ferrous Sulfate [Feosol 325 mg Tablet] 325 mg PO DAILY #30 tablet Furosemide [Lasix 20 mg Tablet] 20 mg PO BID #60 tab Albuterol Sulfate [Proair HFA Inhalation Aerosol 8.5 gm MDI] 2 puff IH Q6HP PRN #1 inhaler PRN Reason: Shortness Of Breath Home Medications: Atorvastatin Calcium [Lipitor 20 mg Tablet] 20 mg PO QHS 04/11/19 Losartan Potassium [Cozaar 100 mg Tablet] 100 mg PO DAILY 04/11/19 Metoprolol Tartrate [Lopressor 50 mg Tablet] 50 mg PO Q12 04/11/19 Oxybutynin Chloride [Oxybutynin Chloride ER] 10 mg PO QHS 04/11/19 Apixaban [Eliquis 5 mg Tablet] 5 mg PO BID tablet 04/13/19 Acetaminophen [Tylenol Arthritis] 650 mg PO Q12 05/03/19 Aspirin [Ecotrin 81 mg EC Tablet] 81 mg PO DAILY 05/03/19 Calcitriol [Rocaltrol 0.25 mcg Capsule] 0.25 mg PO MOWEFR@1000 05/03/19 Dexlansoprazole [Dexilant 60 mg Capsule] 60 mg PO DAILY 05/03/19 Hydralazine HCl [Apresoline 50 mg Tablet] 50 mg PO Q8 05/03/19 Mesalamine [Lialda] 2.4 gm PO QHS 05/03/19 Albuterol Sulfate [Proair HFA Inhalation Aerosol 8.5 gm MDI] 2 puff IH Q6HP PRN #1 inhaler 05/14/19 Ferrous Sulfate [Feosol 325 mg Tablet] 325 mg PO DAILY #30 tablet 05/14/19 Fluticasone/Vilanterol [Breo Ellipta 200-25 Mcg INH] 1 each IH DAILY #1 inhaler 05/14/19 Furosemide [Lasix 20 mg Tablet] 20 mg PO BID #60 tab 05/14/19 History of Present Illiness History of Present Illness: CINTHYA DANIELLE is a 83 year old female with a past medical history of oxygen dependent COPD with tobacco dependence, coronary artery disease, dyslipidemia, hypertension, ulcerative colitis, depression, atrial fibrillation on Eliquis. She presents with several days of rhinorrhea and intermittently productive cough with shortness of breath prompting evaluation emergency room 48 hours ago where she was with similar symptoms but left AGAINST MEDICAL ADVICE. In the emergency room she is found to have tachypnea and a x-ray with small right-sided pleural effusion. She is also in A. fib with RVR and referred to the hospitalist for admission. Patient admits poor compliance with medication lifestyle. Denies chest pain nausea vomiting. Physical Exam Vital Signs: Temp Pulse Resp BP Pulse Ox 97.3 F 81 18 130/67 H 99 05/14/19 12:25 05/14/19 12:25 05/14/19 12:25 05/14/19 12:25 05/14/19 12:25 Intake & Output 05/13/19 05/14/19 05/15/19 06:59 06:59 06:59 Intake Total 720 210 Balance 720 210 Weight 67 kg 66.1 kg General appearance: PRESENT: no acute distress, cooperative, thin. ABSENT: mild distress Head exam: PRESENT: atraumatic Eye exam: PRESENT: EOMI Mouth exam: PRESENT: moist Neck exam: ABSENT: JVD Respiratory exam: PRESENT: clear to auscultation emma, decreased breath sounds - Right lung base, symmetrical, unlabored. ABSENT: retraction, rhonchi, tachypnea, wheezes Cardiovascular exam: PRESENT: irregular rhythm, +S1, +S2. ABSENT: gallop GI/Abdominal exam: PRESENT: normal bowel sounds, soft. ABSENT: diminished bowel sounds, firm, guarding, rigid, tenderness Extremities exam: ABSENT: pedal edema Musculoskeletal exam: PRESENT: ambulatory Neurological exam: PRESENT: alert, awake, oriented to person, oriented to place, oriented to time, oriented to situation Results Laboratory Results: WBC 5.6 10^3/uL (4.0-10.5) 05/12/19 21:06 RBC 3.39 10^6/uL (3.72-5.28) L 05/12/19 21:06 Hgb 8.6 g/dL (12.0-15.5) L 05/12/19 21:06 Hct 26.6 % (36.0-47.0) L 05/12/19 21:06 MCV 79 fl (80-97) L 05/12/19 21:06 MCH 25.6 pg (27.0-33.4) L 05/12/19 21:06 MCHC 32.5 g/dL (32.0-36.0) 05/12/19 21:06 RDW 21.8 % (11.5-14.0) H 05/12/19 21:06 Plt Count 182 10^3/uL (150-450) 05/12/19 21:06 Lymph % (Auto) 17.1 % (13-45) 05/10/19 07:59 [place] % (Auto) 6.5 % (3-13) 05/10/19 07:59 Eos % (Auto) 3.9 % (0-6) 05/10/19 07:59 Baso % (Auto) 1.0 % (0-2) 05/10/19 07:59 Reticulocyte # 0.033 10^6/uL (0.028-0.122) 05/02/19 19:57 Absolute Neuts (auto) 4.1 10^3/uL (1.7-8.2) 05/10/19 07:59 Absolute Lymphs (auto) 1.0 10^3/uL (0.5-4.7) 05/10/19 07:59 Absolute Monos (auto) 0.4 10^3/uL (0.1-1.4) 05/10/19 07:59 Absolute Eos (auto) 0.2 10^3/uL (0.0-0.6) 05/10/19 07:59 Absolute Basos (auto) 0.1 10^3/uL (0.0-0.2) 05/10/19 07:59 Seg Neutrophils % 71.5 % (42-78) 05/10/19 07:59 Retic Count (auto) 0.86 % (0.66-2.85) 05/02/19 19:57 PT 15.6 SEC (11.4-15.4) H 05/11/19 04:10 INR 1.23 05/11/19 04:10 VBG pH 7.35 (7.30-7.42) 05/02/19 19:57 VBG pCO2 61.8 mmHg (35-63) 05/02/19 19:57 VBG HCO3 33.0 mmol/L (20-32) H 05/02/19 19:57 VBG Base Excess 5.9 mmol/L 05/02/19 19:57 Sodium 138.6 mmol/L (137-145) 05/12/19 21:06 Potassium 3.8 mmol/L (3.6-5.0) 05/12/19 21:06 Chloride 98 mmol/L (98-107) 05/12/19 21:06 Carbon Dioxide 36 mmol/L (22-30) H 05/12/19 21:06 Anion Gap 5 (5-19) 05/12/19 21:06 BUN 29 mg/dL (7-20) H 05/12/19 21:06 Creatinine 1.15 mg/dL (0.52-1.25) 05/12/19 21:06 Est GFR ( Amer) 55 (>60) L 05/12/19 21:06 Est GFR (MDRD) Non-Af 45 (>60) L 05/12/19 21:06 Glucose 93 mg/dL (75-110) 05/12/19 21:06 Lactic Acid 1.0 mmol/L (0.7-2.1) 05/02/19 19:57 Calcium 8.6 mg/dL (8.4-10.2) 05/12/19 21:06 Magnesium 2.1 mg/dL (1.6-2.3) 05/12/19 21:06 Iron 31.6 ug/dL (37-170) L 05/02/19 19:57 TIBC 406 ug/dL (250-450) 05/02/19 19:57 % Saturation 8 % 05/02/19 19:57 Ferritin 15.60 ng/mL (11.1-264.0) 05/02/19 19:57 Total Bilirubin 0.3 mg/dL (0.2-1.3) 05/02/19 19:57 Direct Bilirubin 0.2 mg/dL (0.0-0.4) 05/02/19 19:57 Neonat Total Bilirubin Not Reportable 05/02/19 19:57 Neonat Direct Bilirubin Not Reportable 05/02/19 19:57 Neonat Indirect Bili Not Reportable 05/02/19 19:57 AST 21 U/L (14-36) 05/02/19 19:57 ALT 21 U/L (<35) 05/02/19 19:57 Alkaline Phosphatase 60 U/L (38-126) 05/02/19 19:57 Lactate Dehydrogenase 153 U/L (120-246) 05/12/19 11:09 Creatine Kinase 24 U/L (30-135) L 05/03/19 14:08 Troponin I 0.015 ng/mL 05/03/19 14:08 NT-Pro-B Natriuret Pep 8890 pg/mL (<450) H 05/10/19 07:59 Total Protein 5.5 g/dL (6.3-8.2) L 05/12/19 11:09 Albumin 3.4 g/dL (3.5-5.0) L 05/02/19 19:57 Vitamin B12 557.0 pg/mL (239-931) 05/02/19 19:57 Folate 14.90 ng/mL (>2.76) 05/02/19 19:57 Urine Color STRAW 05/05/19 17:36 Urine Appearance CLEAR 05/05/19 17:36 Urine pH 6.0 (5.0-9.0) 05/05/19 17:36 Ur Specific [place] 1.006 05/05/19 17:36 Urine Protein NEGATIVE mg/dL (NEGATIVE) 05/05/19 17:36 Urine Glucose (UA) NEGATIVE mg/dL (NEGATIVE) 05/05/19 17:36 Urine Ketones NEGATIVE mg/dL (NEGATIVE) 05/05/19 17:36 Urine Blood NEGATIVE (NEGATIVE) 05/05/19 17:36 Urine Nitrite NEGATIVE (NEGATIVE) 05/05/19 17:36 Urine Bilirubin NEGATIVE (NEGATIVE) 05/05/19 17:36 Urine Urobilinogen NEGATIVE mg/dL (<2.0) 05/05/19 17:36 Ur Leukocyte Esterase NEGATIVE (NEGATIVE) 05/05/19 17:36 Urine RBC (Auto) 0 /HPF 05/05/19 17:36 Urine Mucus (Auto) RARE /LPF 05/05/19 17:36 Urine Ascorbic Acid NEGATIVE (NEGATIVE) 05/05/19 17:36 Fluid Type PLEURAL 05/12/19 09:00 Fluid Source LUNG 05/12/19 09:00 Fluid Color YELLOW 05/12/19 09:00 Fluid Appearance CLEAR 05/12/19 09:00 Fluid Viscosity LIQUID 05/12/19 09:00 Fluid pH 7.6 (Not Estab.) 05/12/19 09:00 Fluid WBC 247 /uL 05/12/19 09:00 Fluid RBC 1055 /uL 05/12/19 09:00 Fluid Seg Neutrophils 27 % 05/12/19 09:00 Fluid Lymphocytes 56 % 05/12/19 09:00 Fluid Monocytes 15 % 11/05/19 09:00 Fluid Eosinophils 1 % 05/12/19 09:00 Fluid Basophils 1 % 05/12/19 09:00 Fluid Glucose 104 mg/dL (.) 05/12/19 09:00 Fluid Total Protein 1.9 g/dL (.) 05/12/19 09:00 Fluid LDH 77 IU/L (.) 05/12/19 09:00 Fluid Amylase 28 U/L (.) 05/12/19 09:00 05/02/19 05/03/19 05/03/19 19:57 01:34 08:20 Troponin I 0.017 0.016 0.015 NT-Pro-B Natriuret Pep 8960 H 05/03/19 05/05/19 05/06/19 14:08 05:00 10:25 Troponin I 0.015 NT-Pro-B Natriuret Pep 52081 H 98922 H 05/08/19 05/09/19 05/10/19 07:37 07:40 07:59 Troponin I NT-Pro-B Natriuret Pep 62087 H 34984 H 8890 H Impressions: Abdomen X-Ray 05/02/19 00:00 IMPRESSION: 1. No acute abdominal findings Chest X-Ray 05/02/19 19:11 IMPRESSION: Changes consistent with bibasilar consolidation or infiltrates with pleural effusions, right greater than left. Cardiomegaly. Chest X-Ray 05/05/19 00:00 IMPRESSION: Increased asymmetric, right greater than left, basilar predominant pleural and parenchymal opacities. Chest X-Ray 05/07/19 00:00 IMPRESSION: Bilateral pneumonia. No significant change. Chest X-Ray 05/10/19 00:00 IMPRESSION: 1. Possibly worsening right basilar findings, pleural effusion looks worse. 2. Improved left basilar aeration. Chest X-Ray 05/12/19 00:00 IMPRESSION: Decreased size of the right-sided pleural effusion status post thoracentesis. No pneumothorax. Mild residual bilateral effusions, right greater than left. Thoracentesis Ultrasound 05/12/19 00:00 IMPRESSION: SUCCESSFUL RIGHT-SIDED THORACENTESIS USING ULTRASOUND GUIDANCE. Chest X-Ray 05/12/19 11:12 IMPRESSION: Cardiomegaly without pulmonary edema. No pneumothorax. Residual right pleural effusion. Stroke Is this a Stroke Patient?: No Acute Heart Failure - Is this a Heart Failure Patient?: Yes Documentation of LVEF assessment?: Yes LVEF < 40%?: No- if no continue to question #3 3. Anticoagulant therapy for permanect/persistent/paraoxysmal Afib or Aflutter: Yes Follow-up Appointment scheduled within 7 days?: Yes
[2019-05-14 12:39] VITALS: BP 118/74
== END 2019-05-14 13:05 | disposition home health service (06) | DRG 291 ==
LOC: ER 18:51 → EH 21:58 → UNDOADMIN 21:58 → EH 22:04 → 3W 23:52
PROVIDERS: ADMIT Internal Medicine; ATTEND Internal Medicine
PROC: 0W993ZX Drainage of Right Pleural Cavity, Percutaneous Approach, Diagnostic (ICD-10-PCS; principal; 2019-05-10)
PROC: 3E02340 Introduction of Influenza Vaccine into Muscle, Percutaneous Approach (ICD-10-PCS; 2019-05-14)
DX: I11.0 Hypertensive heart disease with heart failure (principal); J15.9 Unspecified bacterial pneumonia; J96.21 Acute and chronic respiratory failure with hypoxia; J44.1 Chronic obstructive pulmonary disease with (acute) exacerbation; K50.90 Crohn's disease, unspecified, without complications; J44.0 Chronic obstructive pulmonary disease with (acute) lower respiratory infection; J90 Pleural effusion, not elsewhere classified; I48.91 Unspecified atrial fibrillation; Z99.81 Dependence on supplemental oxygen; F17.200 Nicotine dependence, unspecified, uncomplicated; I25.10 Atherosclerotic heart disease of native coronary artery without angina pectoris; E78.5 Hyperlipidemia, unspecified; F32.9 Major depressive disorder, single episode, unspecified; I50.9 Heart failure, unspecified; J34.89 Other specified disorders of nose and nasal sinuses; K44.9 Diaphragmatic hernia without obstruction or gangrene; M19.90 Unspecified osteoarthritis, unspecified site; D50.9 Iron deficiency anemia, unspecified; Z79.02 Long term (current) use of antithrombotics/antiplatelets; Z82.49 Family history of ischemic heart disease and other diseases of the circulatory system; Z95.5 Presence of coronary angioplasty implant and graft; Z79.51 Long term (current) use of inhaled steroids; Z79.899 Other long term (current) drug therapy; Z88.0 Allergy status to penicillin; Z88.1 Allergy status to other antibiotic agents; Z88.3 Allergy status to other anti-infective agents; Z23 Encounter for immunization
CPT/HCPCS: 32555; 36415; 71045; 71046; 74019; 80048; 80053; 81001; 82150; 82550; 82607; 82728; 82746; 82803; 82945; 83540; 83550; 83605; 83615; 83735; 83880; 83986; 84155; 84157; 84484; 85025; 85027; 85045; 85610; 87040; 87070; 87075; 87077; 87150; 87205; 89050; 90686; 93005; 93010; 94640; 94667; 94668; 94799; 96365; 96372; 96375; 99285; J0692; J0696; J1644; J1940; J2405; J2930; J3370; J3490; J7512; J7620; S0119

== ENCOUNTER 2019-06-01 12:33 | Emergency (ER) | payer MEDICARE, OTHER ==
[2019-06-01] MEDS ORDERED: IPRATROPIUM/ALBUTEROL 0.5-2.5 MG/3 ML AMPUL NEB ONE ×2 (13:04→15:22)
[2019-06-01] MEDS ORDERED: METHYLPREDNISOLONE INJ 125 MG/2 ML SDV IV ONE (13:10)
[2019-06-01 13:28] LABS: ABSOLUTE EOSINOPHILS # (AUTO) 0.1 10^3/uL (0.0-0.6); ABSOLUTE MONOCYTES (AUTO) 0.3 10^3/uL (0.1-1.4); ABSOLUTE NEUT (AUTO) 3.9 10^3/uL (1.7-8.2); BASOPHILS % (AUTO) 0.7 % (0-2); EOSINOPHILS % (AUTO) 1.1 % (0-6); HEMATOCRIT 28.1 % (36.0-47.0); HEMOGLOBIN 8.9 g/dL (12.0-15.5); LYMPHOCYTES % (AUTO) 18.1 % (13-45); MEAN CORPUSCULAR HEMOGLOBIN 26.3 pg (27.0-33.4); MEAN CORPUSCULAR HGB CONC 31.6 g/dL (32.0-36.0); MONOCYTES % (AUTO) 6.6 % (3-13); PLATELET COUNT 203 10^3/uL (150-450); RED BLOOD COUNT 3.39 10^6/uL (3.72-5.28); RED CELL DISTRIBUTION WIDTH 23.4 % (11.5-14.0); SEGMENTED NEUTROPHILS % (AUTO) 73.5 % (42-78); TOTAL CELLS COUNTED % (AUTO) 100 %; WHITE BLOOD COUNT 5.3 10^3/uL (4.0-10.5)
--- NOTE | 2019-06-01 13:38 | RADIOLOGY REPORT (SQ) ---
EXAM DESCRIPTION: CHEST SINGLE VIEW COMPLETED DATE/TIME: 06/01/2019 12:59 pm REASON FOR STUDY: bed 9 db COMPARISON: 05/12/2019. EXAM PARAMETERS: NUMBER OF VIEWS: One view. TECHNIQUE: Single frontal radiographic view of the chest acquired. RADIATION DOSE: NA LIMITATIONS: None. FINDINGS: LUNGS AND PLEURA: Moderate right pleural effusion, slightly larger. Airspace disease in t he right lung base. Small left pleural effusion. MEDIASTINUM AND HILAR STRUCTURES: No masses. Contour normal. HEART AND VASCULAR STRUCTURES: Stable mild cardiomegaly. BONES: No acute findings. HARDWARE: None in the chest. OTHER: No other significant finding. IMPRESSION: RIGHT PLEURAL EFFUSION HAS INCREASED SLIGHTLY SINCE THE PRIOR STUDY. ATELECTASIS VERSUS INFILTRATE IN THE RIGHT LUNG BASE. CARDIOMEGALY AND SMALL LEFT PLEURAL EFFUSION. TECHNICAL DOCUMENTATION: JOB ID: [id number] [employer]- All Rights Reserved Reading location - IP/workstation name: [email or web address]
[2019-06-01 13:46] LABS: MEAN CORPUSCULAR VOLUME 83 fl (80-97)
--- NOTE | 2019-06-01 13:50 | ER Document Report ---
Entered by MERCEDES HUSAIN SCRIBE 06/01/19 1256 Acting as scribe for:PRAVEEN REYES MD ED Respiratory Problem - General Chief Complaint: Shortness Of Breath Stated Complaint: DIFFICULTY BREATHING Time Seen by Provider: 06/01/19 12:48 Primary Care Provider: RACHEL MEDRANO FNP [Primary Care Provider] - Follow up tomorrow Mode of Arrival: Ambulatory Information source: Patient Notes: This 83-year-old female patient presents to the emergency department today with complaints of shortness of breath. Patient is chronically on 2L of home oxygen. Patient states that at 1000 this morning her shortness of breath became much worse. The patient was most recently admitted here on 05/02/2019 through 05/14/2019 for exacerbation COPD and right pleural effusion. She did have the effusion tapped on 05/12/2019 and had 800 mL's of fluid removed. TRAVEL OUTSIDE OF THE [place] IN LAST 30 DAYS: No - Related Data Allergies/Adverse Reactions: prednisone [Prednisone] Allergy (Unknown, Verified 04/10/19 17:23) cephalexin [Cephalexin] Allergy (Verified 05/08/19 07:45) ciprofloxacin [From Cipro] Allergy (Verified 04/10/19 17:23) cortisone [Cortisone] Allergy (Verified 04/10/19 17:23) Penicillins Allergy (Verified 04/10/19 17:23) phenazopyridine [Phenazopyridine] Allergy (Verified 04/10/19 17:23) Sulfa (Sulfonamide Antibiotics) Allergy (Verified 04/10/19 17:23) sulfamethoxazole [From Bactrim] Allergy (Verified 04/10/19 17:23) tramadol HCl [From Ultram] Allergy (Verified 04/10/19 17:23) trimethoprim [From Bactrim] Allergy (Verified 04/10/19 17:23) Past Medical History - General Information source: Patient, [facility], [facility] Records - Social History Smoking Status: Former Smoker Cigarette use (# per day): No Frequency of alcohol use: None Drug Abuse: None Lives with: Family Family History: CAD - Father, COPD - Brother, CVA - Mother, DM, Hypertension, Malignancy - 1 sister colon cancer and another sister lung cancer Patient has suicidal ideation: No Patient has homicidal ideation: No - Past Medical History Cardiac Medical History: Reports: Hx Atrial Fibrillation, Hx Congestive Heart Failure, Hx Coronary Artery Disease - Has had a couple of stents placed in her arteries., Hx Heart Attack - 10/2014, Hx Hypercholesterolemia, Hx Hypertension Pulmonary Medical History: Reports: Hx Asthma, Hx COPD, Hx Pneumonia Neurological Medical History: Reports: 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, speech deficit Endocrine Medical History: Reports: Hx Graves' Disease Renal/ Medical History: Reports: Hx Renal Insufficiency Malignancy Medical History: Reports: Hx Skin Cancer GI Medical History: Reports: Hx Crohn's Disease, Hx Gastroesophageal Reflux Disease, Hx Hiatal Hernia, Hx Ulcer, Hx Ulcerative Colitis, Hx Colonoscopy Musculoskeletal Medical History: Reports Hx Arthritis Psychiatric Medical History: Reports: Hx Depression Past Surgical History: Reports: Hx Abdominal Surgery - hernia repair with mesh, Hx Cardiac Catheterization - with stents, Hx Cardiac Surgery - Stent, Hx Coronary Stent - x2, Hx Umbilical Hernia, Other - Skin cancer surgery - Immunizations Hx Diphtheria, Pertussis, Tetanus Vaccination: Yes Hx Pneumococcal Vaccination: 07/08/11 Review of Systems - Review of Systems Constitutional: No symptoms reported EENT: No symptoms reported Cardiovascular: No symptoms reported Respiratory: See HPI, Cough, Short of breath, Wheezing Gastrointestinal: No symptoms reported Genitourinary: No symptoms reported Female Genitourinary: No symptoms reported Musculoskeletal: No symptoms reported Skin: No symptoms reported Hematologic/Lymphatic: No symptoms reported Neurological/Psychological: No symptoms reported -: Yes All other systems reviewed and negative Physical Exam - Vital signs Vitals: Pulse Ox 98 06/01/19 12:43 - Notes Notes: Physical Exam: General: Alert, appears well. HEENT: Normocephalic. Atraumatic. PERRL. Extraocular movements intact. Oropharynx clear. Neck: Supple. Non-tender. Respiratory: Wheezing and rhonchi bilaterally. Cardiovascular: Regular rate and rhythm. Abdominal: Normal Inspection. Non-tender. No distension. Normal Bowel Sounds. Back: No gross abnormalities. Extremities: Moves all four extremities. Upper extremities: Normal inspection. Normal ROM. Lower extremities: Normal inspection. No edema. Normal ROM. Neurological: Normal cognition. AAOx4. Normal speech. Psychological: Normal affect. Normal Mood. Skin: Warm. Dry. Normal color. Course - Re-evaluation Re-evalutation: 06/01/19 16:05 At this time the patient's pulse ox reading is running 90 to 94% on 2 L nasal cannula, her son states that is the target pulse ox at home. She does report that prednisone makes her hyper, but the Solu-Medrol she is receiving in the hospital did not. I will discharge her home with methylprednisolone tablets for the next few days. - Vital Signs Vital signs: Temp Pulse Resp BP Pulse Ox 19 127/72 H 100 06/01/19 14:09 06/01/19 14:09 06/01/19 14:09 - Laboratory Result Diagrams: 06/01/19 13:11 06/01/19 13:11 Laboratory results interpreted by me: 06/01/19 06/01/19 06/01/19 13:11 13:11 13:11 RBC 3.39 L Hgb 8.9 L Hct 28.1 L MCH 26.3 L MCHC 31.6 L RDW 23.4 H Chloride 96 L Carbon Dioxide 39 H BUN 27 H Est GFR ( Amer) 55 L Est GFR (MDRD) Non-Af 45 L Creatine Kinase < 20 L NT-Pro-B Natriuret Pep 8340 H Total Protein 5.7 L Albumin 3.3 L - Diagnostic Test Radiology reviewed: Image reviewed, Reports reviewed - Chest x-ray shows right basilar atelectasis, and a right pleural effusion that is increased slightly from 05/12/2019 after she had her pleurocentesis. - EKG Interpretation by Me EKG shows normal: [place], Intervals, QRS Complexes. abnormal: ST-T Waves - Borderline inferior T abnormalities Rate: Tachycardia - 107 Rhythm: A.Fib Voltage: Consistant with LVH, Decreased voltage Discharge - Discharge Clinical Impression: COPD with exacerbation, Recurrent pleural effusion on right Atrial fibrillation Qualifiers: Atrial fibrillation type: unspecified persistent Qualified Code(s): I48.19 - Other persistent atrial fibrillation Condition: Stable Disposition: HOME, SELF-CARE Additional Instructions: Take the methylprednisolone tablets as prescribed for the next few days to help with your COPD. Be sure to stay on your oxygen all the time, and use your nebulizer treatments as needed. Follow-up with your primary care provider in the next 1 to 2 days for recheck. RETURN TO THE EMERGENCY ROOM IF ANY NEW OR WORSENING SYMPTOMS. Prescriptions: Methylprednisolone [Medrol 4 Mg Tablet] 4 mg PO BID #10 tablet Referrals: RACHEL MEDRANO FNP [Primary Care Provider] - Follow up tomorrow Scribe Attestation: 06/01/19 13:51 I personally performed the services described in the documentation, reviewed and edited the documentation which was dictated to the scribe in my presence, and it accurately records my words and actions. I personally performed the services described in the documentation, reviewed and edited the documentation which was dictated to the scribe in my presence, and it accurately records my words and actions.
[2019-06-01 13:54] LABS: ALBUMIN 3.3 g/dL (3.5-5.0); ALKALINE PHOSPHATASE 58 U/L (38-126); ASPARTATE AMINO TRANSFERASE 21 U/L (14-36); BILIRUBIN,DIRECT 0.2 mg/dL (0.0-0.4); BILIRUBIN,TOTAL 0.4 mg/dL (0.2-1.3); BLOOD UREA NITROGEN 27 mg/dL (7-20); CHLORIDE 96 mmol/L (98-107); GLUCOSE 108 mg/dL (75-110); POTASSIUM 4.5 mmol/L (3.6-5.0); TOTAL PROTEIN 5.7 g/dL (6.3-8.2)
[2019-06-01 13:55] LABS: ANISOCYTOSIS 3+; HYPOCHROMASIA 1+; OVALOCYTES SLIGHT; PLATELET COMMENT ADEQUATE; POIKILOCYTOSIS SLIGHT; POLYCHROMASIA SLIGHT
[2019-06-01 14:05] LABS: ANION GAP 5 (5-19); CARBON DIOXIDE 39 mmol/L (22-30)
[2019-06-01 14:06] LABS: CREATINE KINASE < 20 U/L (30-135)
[2019-06-01 14:18] LABS: CREATINE KINASE MB 0.61 ng/mL (<4.55); NT PRO BNP 8340 pg/mL (<450)
[2019-06-01 14:19] LABS: TROPONIN I < 0.012 ng/mL
[2019-06-01 17:00] VITALS: BP 145/85
--- NOTE | 2019-06-01 23:51 | EKG REPORT ---
SEVERITY:- ABNORMAL ECG - ATRIAL FIBRILLATION, V-RATE 72-149 LOW VOLTAGE IN FRONTAL LEADS PROBABLE LEFT VENTRICULAR HYPERTROPHY BORDERLINE T ABNORMALITIES, INFERIOR LEADS : Confirmed by: Eunice Servin 01-Jun-2019 23:51:26
== END 2019-06-01 17:00 | disposition home or self-care (01) ==
LOC: ER 12:33
DX: J44.1 Chronic obstructive pulmonary disease with (acute) exacerbation (principal); Z99.81 Dependence on supplemental oxygen; J90 Pleural effusion, not elsewhere classified; J98.11 Atelectasis; I48.19 Other persistent atrial fibrillation; R00.0 Tachycardia, unspecified; R05 Cough; R06.02 Shortness of breath; I25.10 Atherosclerotic heart disease of native coronary artery without angina pectoris; I10 Essential (primary) hypertension; Z95.5 Presence of coronary angioplasty implant and graft; Z87.01 Personal history of pneumonia (recurrent); Z87.891 Personal history of nicotine dependence; Z88.8 Allergy status to other drugs, medicaments and biological substances; Z88.1 Allergy status to other antibiotic agents; Z88.0 Allergy status to penicillin; Z88.2 Allergy status to sulfonamides; Z88.6 Allergy status to analgesic agent
CPT/HCPCS: 93005; 94640 ×2; 99285; 96374; 36415; 87040; 82553; 82550; 85025; 80053; 84484; 83880; 71045; 93010; J2930; A9270; J7620

== ENCOUNTER 2019-06-03 13:01 | Inpatient (IN) | payer OTHER, MEDICARE ==
--- NOTE | 2019-06-03 13:44 | RADIOLOGY REPORT (SQ) ---
EXAM DESCRIPTION: CHEST SINGLE VIEW COMPLETED DATE/TIME: 06/03/2019 1:33 pm REASON FOR STUDY: sob COMPARISON: Chest films 04/10/2019, 05/07/2019, 05/12/2019, 06/01/2019 EXAM PARAMETERS: NUMBER OF VIEWS: One view. TECHNIQUE: Single frontal radiographic view of the chest acquired. RADIATION DOSE: NA LIMITATIONS: None. FINDINGS: LUNGS AND PLEURA: Re-accumulation of a moderate size right pleural effusion. There is opa cification of the right lower hemithorax from pleural fluid and right lung collapse/ consolidation. Superimposed pneumonia could not be excluded. This is more prominent than on 06/01/2019. Trace left pleural fluid in the lateral costophrenic sulcus, stable compared to 06/01/2019 Pulmonary vascular congestion with Jacki lines from fluid overload or congestive failure. No pneumothorax. MEDIASTINUM AND HILAR STRUCTURES: No masses. Contour normal. HEART AND VASCULAR STRUCTURES: Moderate cardiomegaly BONES: No acute findings. HARDWARE: None in the chest. OTHER: No other significant finding. IMPRESSION: Opacification of the right lower chest from re-accumulation of pleural effusion and righ t middle and lower lobe consolidation atelectasis versus pneumonia. Findings are more prominent than on 06/01/2019 TECHNICAL DOCUMENTATION: JOB ID: [id number] [employer]- All Rights Reserved Reading location - IP/workstation name: [email or web address]
[2019-06-03 13:47] LABS: ABSOLUTE LYMPHOCYTES (AUTO) 0.7 10^3/uL (0.5-4.7); ABSOLUTE MONOCYTES (AUTO) 0.3 10^3/uL (0.1-1.4); ABSOLUTE NEUT (AUTO) 5.3 10^3/uL (1.7-8.2); BASOPHILS % (AUTO) 0.4 % (0-2); HEMATOCRIT 30.2 % (36.0-47.0); HEMOGLOBIN 9.6 g/dL (12.0-15.5); LYMPHOCYTES % (AUTO) 11.3 % (13-45); MEAN CORPUSCULAR HEMOGLOBIN 26.3 pg (27.0-33.4); MEAN CORPUSCULAR HGB CONC 31.7 g/dL (32.0-36.0); MEAN CORPUSCULAR VOLUME 83 fl (80-97); MONOCYTES % (AUTO) 4.4 % (3-13); RED BLOOD COUNT 3.65 10^6/uL (3.72-5.28); RED CELL DISTRIBUTION WIDTH 23.4 % (11.5-14.0); SEGMENTED NEUTROPHILS % (AUTO) 83.9 % (42-78); TOTAL CELLS COUNTED % (AUTO) 100 %; WHITE BLOOD COUNT 6.3 10^3/uL (4.0-10.5)
[2019-06-03] MEDS ORDERED: IPRATROPIUM/ALBUTEROL 0.5-2.5 MG/3 ML AMPUL NEB ONE (13:49)
[2019-06-03 14:08] LABS: ANISOCYTOSIS 3+; HYPOCHROMASIA SLIGHT
[2019-06-03 14:09] LABS: PLATELET CLUMPS PRESENT; PLATELET COMMENT ADEQUATE; TEAR DROP CELLS SLIGHT
[2019-06-03 14:10] LABS: PLATELET COUNT 246 10^3/uL (150-450)
[2019-06-03 14:13] LABS: ALBUMIN 4.1 g/dL (3.5-5.0); ALKALINE PHOSPHATASE 60 U/L (38-126); ANION GAP 9 (5-19); ASPARTATE AMINO TRANSFERASE 51 U/L (14-36); BILIRUBIN,DIRECT 0.1 mg/dL (0.0-0.4); BILIRUBIN,TOTAL 0.4 mg/dL (0.2-1.3); BLOOD UREA NITROGEN 43 mg/dL (7-20); CALCIUM 9.5 mg/dL (8.4-10.2); CARBON DIOXIDE 37 mmol/L (22-30); CHLORIDE 93 mmol/L (98-107); GLUCOSE 147 mg/dL (75-110); POTASSIUM 5.2 mmol/L (3.6-5.0); TOTAL PROTEIN 6.7 g/dL (6.3-8.2)
--- NOTE | 2019-06-03 14:44 | ER Document Report ---
ED Respiratory Problem - General Chief Complaint: COPD Exacerbation Stated Complaint: SHORTNESS OF BREATH Time Seen by Provider: 06/03/19 13:35 Primary Care Provider: RACHEL MEDRANO FNP [Primary Care Provider] - Follow up as needed Notes: Patient is an 83-year-old female with a history of congestive heart failure, COPD, A. fib who presents to the emergency department with a chief complaint of shortness of breath. Patient reports she was seen here 2 days ago for shortness of breath and was prescribed oral methylprednisone. Patient reports she has continued to get worse. Patient reports she did go to [facility] and see her primary care physician this morning who stated that they were going to incre ase her Lasix dosage and for her to continue her steroid. Patient reports on the way home from the doctor's office she began to feel short of breath and wanted to come to the emergency department. Patient denies fever. Patient denies productive cough. TRAVEL OUTSIDE OF THE [place] IN LAST 30 DAYS: No - Related Data Allergies/Adverse Reactions: prednisone [Prednisone] Allergy (Unknown, Verified 04/10/19 17:23) cephalexin [Cephalexin] Allergy (Verified 05/08/19 07:45) ciprofloxacin [From Cipro] Allergy (Verified 04/10/19 17:23) cortisone [Cortisone] Allergy (Verified 04/10/19 17:23) Penicillins Allergy (Verified 04/10/19 17:23) phenazopyridine [Phenazopyridine] Allergy (Verified 04/10/19 17:23) Sulfa (Sulfonamide Antibiotics) Allergy (Verified 04/10/19 17:23) sulfamethoxazole [From Bactrim] Allergy (Verified 04/10/19 17:23) tramadol HCl [From Ultram] Allergy (Verified 04/10/19 17:23) trimethoprim [From Bactrim] Allergy (Verified 04/10/19 17:23) Past Medical History - General Information source: Patient - Social History Smoking Status: Unknown if Ever Smoked Lives with: Family Family History: CAD - Father, COPD - Brother, CVA - Mother, DM, Hypertension, Malignancy - 1 sister colon cancer and another sister lung cancer Patient has suicidal ideation: No Patient has homicidal ideation: No - Past Medical History Cardiac Medical History: Reports: Hx Atrial Fibrillation, Hx Congestive Heart Failure, Hx Coronary Artery Disease - Has had a couple of stents placed in her arteries., Hx Heart Attack - 10/2014, Hx Hypercholesterolemia, Hx Hypertension Denies: Hx DVT, Hx Pulmonary Embolism Pulmonary Medical History: Reports: Hx Asthma, Hx COPD, Hx Pneumonia EENT Medical History: Reports: None Neurological Medical History: Reports: 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 Denies: Hx Seizures Endocrine Medical History: Reports: Hx Graves' Disease. Denies: Hx Diabetes Mellitus Type 1, Hx Diabetes Mellitus Type 2, Hx Hyperthyroidism, Hx Hypothyroidism Renal/ Medical History: Reports: Hx Renal Insufficiency. Denies: Hx Peritoneal Dialysis Malignancy Medical History: Reports: Hx Skin Cancer GI Medical History: Reports: Hx Crohn's Disease, Hx Gastroesophageal Reflux Disease, Hx Hiatal Hernia, Hx Ulcer, Hx Ulcerative Colitis, Hx Colonoscopy. Denies: Hx Cirrhosis, Hx Hepatitis Musculoskeletal Medical History: Reports Hx Arthritis, Denies Hx Gout Skin Medical History: Denies Hx Eczema, Denies Hx Psoriasis Psychiatric Medical History: Reports: Hx Depression Traumatic Medical History: Reports: None Infectious Medical History: Reports: None. Denies: Hx Hepatitis Past Surgical History: Reports: Hx Abdominal Surgery - hernia repair with mesh, Hx Cardiac Catheterization - with stents, Hx Cardiac Surgery - Stent, Hx Coronary Stent - x2, Hx Umbilical Hernia, Other - Skin cancer surgery - Immunizations Hx Diphtheria, Pertussis, Tetanus Vaccination: Yes Hx Pneumococcal Vaccination: 07/08/11 Review of Systems - Review of Systems Constitutional: No symptoms reported EENT: No symptoms reported Cardiovascular: No symptoms reported Respiratory: See HPI Gastrointestinal: No symptoms reported Genitourinary: No symptoms reported Female Genitourinary: No symptoms reported Musculoskeletal: No symptoms reported Skin: No symptoms reported Hematologic/Lymphatic: No symptoms reported Neurological/Psychological: No symptoms reported Physical Exam - Vital signs Vitals: Temp 98.7 F 06/03/19 13:02 - Notes Notes: GENERAL: Well-appearing, well-nourished and in no acute distress, slightly labored breathing with conversation. HEAD: Atraumatic, normocephalic. EYES: Pupils equal round and reactive to light, extraocular movements intact, sclera anicteric, conjunctiva are normal. ENT: Nares patent, oropharynx clear without exudates. Moist mucous membranes. NECK: Normal range of motion, supple without lymphadenopathy or JVD. LUNGS: Scattered rhonchi, expiratory wheezing noted in bilateral lobes, slightly diminished in RLL. + dry congested cough. HEART: Irregular rate and rhythm without murmurs, rubs or gallops. ABDOMEN: Soft, nontender, normoactive bowel sounds. No guarding, no rebound. No masses appreciated. BACK: No cervical, thoracic, lumbar midline tenderness. No saddle anesthesia, normal distal neurovascular exam. GENITOURINARY: Deferred. EXTREMITIES: Normal range of motion, + 3/4 pitting edema bilateral lower extremities. No clubbing or cyanosis. NEUROLOGICAL: Cranial nerves II through XII grossly intact. Normal speech, normal gait. PSYCH: Normal mood, normal affect. SKIN: Warm, Dry, normal turgor, no rashes or lesions noted. Course - Re-evaluation Re-evalutation: 06/03/19 15:10 Patient's consolidation and pleural effusion slightly worse than 2 days ago. Patient also has an elevated BUN and creatinine and a slightly elevated potassium at 5.2. After receiving the breathing treatment the patient reports s he does not feel any difference with her shortness of breath. Patient is laying on her right side and tolerating 2 L of nasal cannula, breathing is labored, with oxygen saturation of 94 to 95%. Patient is nontoxic-appearing. Did speak with the hospitalist service, Gómez Cruz [employer] TECHNICIAN will come down to evaluate the patient for admission. - Vital Signs Vital signs: Temp Pulse Resp BP Pulse Ox 98.7 F 18 164/95 H 94 06/03/19 13:02 06/03/19 15:01 06/03/19 15:00 06/03/19 15:01 - Laboratory Result Diagrams: 06/03/19 13:16 06/03/19 13:16 Laboratory results interpreted by me: 06/03/19 06/03/19 06/03/19 13:16 13:16 13:16 RBC 3.65 L Hgb 9.6 L Hct 30.2 L MCH 26.3 L MCHC 31.7 L RDW 23.4 H Lymph % (Auto) 11.3 L Seg Neutrophils % 83.9 H Potassium 5.2 H Chloride 93 L Carbon Dioxide 37 H BUN 43 H Creatinine 1.38 H Est GFR ( Amer) 44 L Est GFR (MDRD) Non-Af 37 L Glucose 147 H AST 51 H NT-Pro-B Natriuret Pep 27842 H Urine Protein Ur Leukocyte Esterase 06/03/19 15:15 RBC Hgb Hct MCH MCHC RDW Lymph % (Auto) Seg Neutrophils % Potassium Chloride Carbon Dioxide BUN Creatinine Est GFR ( Amer) Est GFR (MDRD) Non-Af Glucose AST NT-Pro-B Natriuret Pep Urine Protein 30 H Ur Leukocyte Esterase SMALL H 06/03/19 15:41 Patient does have an elevated potassium of 5.2 as well as an elevated BUN and creatinine. Patient's BNP has increased over the past 48 hours. - Diagnostic Test Radiology reviewed: Reports reviewed Radiology results interpreted by me: 06/03/19 14:42 Chest X-Ray 06/03/19 13:07 IMPRESSION: Opacification of the right lower chest from re-accumulation of pleural effusion and right middle and lower lobe consolidation atelectasis versus pneumonia. Findings are more prominent than on 06/01/2019 - EKG Interpretation by Me Additional EKG results interpreted by me: 06/03/19 15:38 Patient's EKG shows an atrial fibrillation with a heart rate of 108, QT is 340 and QTc is 467. Patient has a normal axis deviation. There does not appear to be any ST segment changes in consecutive leads or change from previous EKG that was performed 2 days ago. The EKG does show a lot of artifact. Discharge - Discharge Clinical Impression: Recurrent pleural effusion on right A-fib Qualifiers: Atrial fibrillation type: unspecified chronic Qualified Code(s): I48.20 - Chronic atrial fibrillation, unspecified Anemia Qualifiers: Anemia type: unspecified type Qualified Code(s): D64.9 - Anemia, unspecified COPD (chronic obstructive pulmonary disease) Qualifiers: COPD type: unspecified COPD Qualified Code(s): J44.9 - Chronic obstructive pulmonary disease, unspecified CHF (congestive heart failure) Qualifiers: Heart failure type: unspecified Heart failure chronicity: acute on chronic Qualified Code(s): I50.9 - Heart failure, unspecified Condition: Stable Disposition: ADMITTED INPATIENT Admitting Provider: Tobi (Hospitalist) Unit Admitted: IMCU Referrals: RACHEL MEDRANO FNP [Primary Care Provider] - Follow up as needed
[2019-06-03] MEDS ORDERED: TEMAZEPAM 15 MG CAPSULE PO PRN (15:21)
[2019-06-03] MEDS ORDERED: MAG HYDROX/AL HYDROX/SIMETH SUSP 30 ML UDCUP PO PRN (15:21)
[2019-06-03] MEDS ORDERED: VANCOMYCIN HCL 0 MG in DEXTROSE 5%-WATER 250 ML IV NR (15:30)
[2019-06-03 15:33] LABS: APPEARANCE,URINE SLIGHTLY-CLOUDY; BILIRUBIN,URINE NEGATIVE (NEGATIVE); COLOR,URINE YELLOW; GLUCOSE, URINE NEGATIVE (NEGATIVE); KETONES,URINE NEGATIVE (NEGATIVE); LEUKOCYTE ESTERASE,URINE SMALL (NEGATIVE); NITRITE,URINE NEGATIVE (NEGATIVE); PROTEIN,URINE 30 mg/dL (NEGATIVE); URINE SPECIFIC GRAVITY 1.013; UROBILINOGEN,URINE NEGATIVE mg/dL (<2.0)
[2019-06-03] MEDS ORDERED: DEXTROSE 40% GEL 15 GM TUBE PO PRN ×2 (15:37)
[2019-06-03] MEDS ORDERED: GLUCAGON,HUMAN RECOMB 1 MG INJ IM PRN (15:37)
[2019-06-03] MEDS ORDERED: DEXTROSE 50%-WATER 25 GM/50 ML DISP.SYRIN IV PRN ×2 (15:37)
--- NOTE | 2019-06-03 15:39 | PDOC H&P ---
History of Present Illness Admission Date/PCP: 06/03/2019 CARMELA RESENDIZ Patient complains of: Shortness of breath History of Present Illness: CINTHYA DANIELLE is a 83 year old female with a long-standing history of congestive heart failure, COPD, A. fib presents to the emergency department chief complaint shortness of breath. Patient reports she seen here 2 days ago for shortness of breath and prescribed oral methylprednisolone. Patient states she continued to worsen over the course of those days. Patient reports back to the ER now having trouble talking full sentences in the setting without oxygen therapy. Patient also shows a moderate right pleural effusion which has been tapped previously. She had no other treatment prior to arrival all active is aggravating factor. Past Medical History Cardiac Medical History: Reports: Atrial Fibrillation, Congestive Heart Failure, Coronary Artery Disease - Has had a couple of stents placed in her arteries., Myocardial Infarction - 10/2014, Hyperlipidema, Hypertension Denies: DVT, Pulmonary Embolism Pulmonary Medical History: Reports: Asthma, Chronic Obstructive Pulmonary Disease (COPD), Pneumonia EENT Medical History: Reports: None Neurological Medical History: Denies: Seizures Endocrine Medical History: Denies: Diabetes Mellitus Type 1, Diabetes Mellitus Type 2, Hyperthyroidism, Hypothyroidism Malignancy Medical History: Reports: Skin Cancer GI Medical History: Reports: Crohn's Disease, Gastroesophageal Reflux Disease, Hiatal Hernia, Ulcerative Colitis Denies: Cirrhosis, Hepatitis Musculoskeltal Medical History: Reports: Arthritis Denies: Gout Skin Medical History: Denies: Eczema, Psoriasis Psychiatric Medical History: Reports: Depression Traumatic Medical History: Reports: None Hematology: Reports: Anemia - Chronic Denies: Bleeding Tendencies Infectious Medical History: Reports: None Past Surgical History Past Surgical History: Reports: Cardiac Catheterization - with stents, Coronary Stent - x2, Other - Skin cancer surgery Social History Information Source: Patient Lives with: Family Smoking Status: Former Smoker Electronic Cigarette use?: No Frequency of Alcohol Use: None Hx Recreational Drug Use: No Drugs: None Hx Prescription Drug Abuse: No - Advance Directive Resuscitation Status: Full Code Family History Family History: CAD - Father, COPD - Brother, CVA - Mother, DM, Hypertension, Malignancy - 1 sister colon cancer and another sister lung cancer Parental Family History Reviewed: Yes Children Family History Reviewed: Yes Sibling(s) Family History Reviewed.: Yes Medication/Allergy Home Medications: Atorvastatin Calcium [Lipitor 20 mg Tablet] 20 mg PO QHS 04/11/19 Losartan Potassium [Cozaar 100 mg Tablet] 100 mg PO DAILY 04/11/19 Metoprolol Tartrate [Lopressor 50 mg Tablet] 50 mg PO Q12 04/11/19 Oxybutynin Chloride [Oxybutynin Chloride ER] 10 mg PO QHS 04/11/19 Apixaban [Eliquis 5 mg Tablet] 5 mg PO BID tablet 04/13/19 Acetaminophen [Tylenol Arthritis] 650 mg PO Q12 05/03/19 Aspirin [Ecotrin 81 mg EC Tablet] 81 mg PO DAILY 05/03/19 Calcitriol [Rocaltrol 0.25 mcg Capsule] 0.25 mg PO MOWEFR@1000 05/03/19 Dexlansoprazole [Dexilant 60 mg Capsule] 60 mg PO DAILY 05/03/19 Hydralazine HCl [Apresoline 50 mg Tablet] 50 mg PO Q8 05/03/19 Mesalamine [Lialda] 2.4 gm PO QHS 05/03/19 Albuterol Sulfate [Proair HFA Inhalation Aerosol 8.5 gm MDI] 2 puff IH Q6HP PRN #1 inhaler 05/14/19 Ferrous Sulfate [Feosol 325 mg Tablet] 325 mg PO DAILY #30 tablet 05/14/19 Fluticasone/Vilanterol [Breo Ellipta 200-25 Mcg INH] 1 each IH DAILY #1 inhaler 05/14/19 Furosemide [Lasix 20 mg Tablet] 20 mg PO BID #60 tab 05/14/19 Methylprednisolone [Medrol 4 Mg Tablet] 4 mg PO BID #10 tablet 06/01/19 Allergies/Adverse Reactions: prednisone [Prednisone] Allergy (Unknown, Verified 04/10/19 17:23) cephalexin [Cephalexin] Allergy (Verified 05/08/19 07:45) ciprofloxacin [From Cipro] Allergy (Verified 04/10/19 17:23) cortisone [Cortisone] Allergy (Verified 04/10/19 17:23) Penicillins Allergy (Verified 04/10/19 17:23) phenazopyridine [Phenazopyridine] Allergy (Verified 04/10/19 17:23) Sulfa (Sulfonamide Antibiotics) Allergy (Verified 04/10/19 17:23) sulfamethoxazole [From Bactrim] Allergy (Verified 04/10/19 17:23) tramadol HCl [From Ultram] Allergy (Verified 04/10/19 17:23) trimethoprim [From Bactrim] Allergy (Verified 04/10/19 17:23) Review of Systems Constitutional: ABSENT: chills, fever(s), headache(s), weight gain, weight loss Eyes: ABSENT: visual disturbances Ears: ABSENT: hearing changes Cardiovascular: ABSENT: chest pain, dyspnea on exertion, edema, orthropnea, palpitations Respiratory: PRESENT: cough, dyspnea, other - Wheeze. ABSENT: hemoptysis Gastrointestinal: ABSENT: abdominal pain, constipation, diarrhea, hematemesis, hematochezia, nausea, vomiting Genitourinary: ABSENT: dysuria, hematuria Musculoskeletal: ABSENT: joint swelling Integumentary: ABSENT: rash, wounds Neurological: ABSENT: abnormal gait, abnormal speech, confusion, dizziness, focal weakness, syncope Psychiatric: ABSENT: anxiety, depression, homidical ideation, suicidal ideation Endocrine: ABSENT: cold intolerance, heat intolerance, polydipsia, polyuria Hematologic/Lymphatic: ABSENT: easy bleeding, easy bruising Physical Exam Vital Signs: Temp Pulse Resp BP Pulse Ox 98.7 F 18 164/95 H 94 06/03/19 13:02 06/03/19 15:01 06/03/19 15:00 06/03/19 15:01 Intake & Output 06/02/19 06/03/19 06/04/19 06:59 06:59 06:59 Weight 65 kg General appearance: PRESENT: no acute distress, well-developed, well-nourished Head exam: PRESENT: atraumatic, normocephalic Eye exam: PRESENT: conjunctiva pink, EOMI, PERRLA. ABSENT: scleral icterus Ear exam: PRESENT: normal external ear exam Mouth exam: PRESENT: moist, tongue midline Neck exam: ABSENT: carotid bruit, JVD, lymphadenopathy, thyromegaly Respiratory exam: PRESENT: accessory muscle use, decreased breath sounds, rales, rhonchi, symmetrical, tachypnea, wheezes Cardiovascular exam: PRESENT: RRR. ABSENT: diastolic murmur, rubs, systolic murmur Pulses: PRESENT: normal dorsalis pedis pul Vascular exam: PRESENT: normal capillary refill GI/Abdominal exam: PRESENT: normal bowel sounds, soft. ABSENT: distended, guarding, mass, organolmegaly, rebound, tenderness Rectal exam: PRESENT: deferred Extremities exam: PRESENT: full ROM. ABSENT: calf tenderness, clubbing, pedal edema Neurological exam: PRESENT: alert, awake, oriented to person, oriented to place, oriented to time, oriented to situation, CN II-XII grossly intact. ABSENT: motor sensory deficit Psychiatric exam: PRESENT: appropriate affect, normal mood. ABSENT: homicidal ideation, suicidal ideation Skin exam: PRESENT: dry, intact, warm. ABSENT: cyanosis, rash Results Laboratory Results: 06/03/19 13:16 06/03/19 13:16 06/03/19 06/03/19 13:16 13:16 WBC 6.3 RBC 3.65 L Hgb 9.6 L Hct 30.2 L MCV 83 MCH 26.3 L MCHC 31.7 L RDW 23.4 H Plt Count 246 Seg Neutrophils % 83.9 H Sodium 139.0 Potassium 5.2 H Chloride 93 L Carbon Dioxide 37 H Anion Gap 9 BUN 43 H Creatinine 1.38 H Est GFR ( Amer) 44 L Glucose 147 H Calcium 9.5 Total Bilirubin 0.4 AST 51 H Alkaline Phosphatase 60 Total Protein 6.7 Albumin 4.1 06/03/19 13:16 NT-Pro-B Natriuret Pep 66495 H Impressions: Chest X-Ray 06/03/19 13:07 IMPRESSION: Opacification of the right lower chest from re-accumulation of pleural effusion and right middle and lower lobe consolidation atelectasis vers us pneumonia. Findings are more prominent than on 06/01/2019 Assessment and Plan - Diagnosis (1) Acute on chronic respiratory failure with hypoxia Is this a current diagnosis for this admission?: Yes Plan: 06/03/2019-admit to IMCU. This is most likely multifactorial in nature with hea lthcare associated pneumonia and large right pleural effusion plus COPD exacerbation. At this time I suspect this is mostly from the pleural effusion and the pneumonia itself along with some congestive heart failure. Will place patient on Lasix 40 mg IV 3 times daily, I will have patient go through a therapeutic and diagnostic thoracentesis in the a.m. and I will treat patient with vancomycin and Azeotram secondary to multiple antibiotic allergies. Patient states allergies to prednisone although she is taking steroids at this point although I suspect she does not need these at this time. Patient does have some wheezing but I suspect this is most likely cardiac in nature. (2) Recurrent pleural effusion on right Is this a current diagnosis for this admission?: Yes Plan: 06/03/2019-see #1 (3) Acute on chronic diastolic (congestive) heart failure Is this a current diagnosis for this admission?: Yes Plan: 06/03/2019-see 1 (4) Hyperkalemia Is this a current diagnosis for this admission?: Yes Plan: 06/03/2019-mild. Potassium 5.2. I suspect this will go down with diuresis recheck in the a.m. (5) Hyperglycemia Is this a current diagnosis for this admission?: Yes Plan: 06/03/2019-carbohydrate controlled diet. A1c. Sliding scale insulin before meals and at bedtime I suspect this mostly from previous steroid use. - Time Time Spent with patient: 35 or more minutes - Inpatient Certification Based on my medical assessment, after consideration of the patient's comorbidities, presenting symptoms, or acuity I expect that the services needed warrant INPATIENT care.: Yes I certify that my determination is in accordance with my understanding of Medicare's requirements for reasonable and necessary INPATIENT services [42 CFR 412.3e].: Yes Medical Necessity: Significant Comorbidiites Make Outpatient Treatment Too Risky, Need Close Monitoring Due to Risk of Patient Decompensation, Other - IV diuresis
[2019-06-03] MEDS ORDERED: LORAZEPAM INJ 2 MG/1 ML VIAL IV ONE ×2 (16:45→17:04)
[2019-06-03 16:54] LABS: INTERNATIONAL RATION (INR) 1.24; PROTHROMBIN TIME 15.7 SEC (11.4-15.4)
[2019-06-03 16:55] LABS: PARTIAL THROMBOPLASTIN TIME 32.5 SEC (23.5-35.8)
[2019-06-03] MEDS ORDERED: AZTREONAM INJ 1 GM VIAL IV SCH (18:00)
[2019-06-03] MEDS: AZTREONAM 1 GM in DEXTROSE 5%-WATER 50 ML IV SCH (18:49)
[2019-06-03] MEDS: FUROSEMIDE INJ/PF 40 MG/4 ML SDV IV SCH (19:24)
[2019-06-03] MEDS: VANCOMYCIN HCL 750 MG in DEXTROSE 5%-WATER 250 ML IV SCH (21:19)
[2019-06-03] MEDS: INSULIN REG, HUMAN 100 UNIT/ML 3 ML VIAL (PYX) SUBCUT SCH ×2 (21:20→22:00)
[2019-06-03] MEDS ORDERED: HEPARIN SOD (PORCINE) 5,000 UNIT/ML 1 ML VIAL SUBCUT SCH (22:00)
--- NOTE | 2019-06-03 23:40 | EKG REPORT ---
SEVERITY:- ABNORMAL ECG - ATRIAL FIBRILLATION, V-RATE 77-149 VENTRICULAR PREMATURE COMPLEX NONSPECIFIC T ABNORMALITIES, ANT-LAT LEADS : Confirmed by: Eunice Servin 03-Jun-2019 23:40:11
[2019-06-04] MEDS ORDERED: METOPROLOL TARTRATE PF/INJ 5 MG/5 ML SDV IV PRN (02:26)
[2019-06-04] MEDS: AZTREONAM 1 GM in DEXTROSE 5%-WATER 50 ML IV SCH ×3 (02:52→17:41)
[2019-06-04 05:35] LABS: HEMATOCRIT 26.1 % (36.0-47.0); HEMOGLOBIN 8.5 g/dL (12.0-15.5); MEAN CORPUSCULAR HEMOGLOBIN 26.6 pg (27.0-33.4); MEAN CORPUSCULAR HGB CONC 32.4 g/dL (32.0-36.0); MEAN CORPUSCULAR VOLUME 82 fl (80-97); PLATELET COUNT 195 10^3/uL (150-450); RED BLOOD COUNT 3.18 10^6/uL (3.72-5.28); RED CELL DISTRIBUTION WIDTH 23.3 % (11.5-14.0); WHITE BLOOD COUNT 8.3 10^3/uL (4.0-10.5)
[2019-06-04 05:50] LABS: PHOSPHORUS 3.6 mg/dL (2.5-4.5)
[2019-06-04] MEDS: INSULIN REG, HUMAN 100 UNIT/ML 3 ML VIAL (PYX) SUBCUT SCH ×4 (09:00→21:58)
[2019-06-04] MEDS: FUROSEMIDE INJ/PF 40 MG/4 ML SDV IV SCH ×3 (10:09→17:41)
[2019-06-04] MEDS ORDERED: ALBUTEROL SULFATE HFA (90 MCG/PUFF) 200 PUFF/8.5 GM MDI IH PRN (11:18)
[2019-06-04] MEDS ORDERED: METHYLPREDNISOLONE DOSEPAK (4 MG/TAB) 21 TAB/DSPK PO PRN (11:18)
[2019-06-04] MEDS ORDERED: FUROSEMIDE 20 MG TABLET PO SCH (12:30)
[2019-06-04] MEDS: POTASSIUM CHLORIDE 10 MEQ TABLET.ER PO SCH (12:59)
[2019-06-04] MEDS: FLUTICASONE/VILANTEROL 200-25 MCG/DOSE IH SCH (12:59)
[2019-06-04] MEDS: METOPROLOL TARTRATE 50 MG TABLET PO SCH ×2 (12:59→22:03)
[2019-06-04] MEDS: DULOXETINE HCL 20 MG CAPSULE.DR PO SCH (13:00)
[2019-06-04] MEDS: OXYCODONE-ACETAMINOPHEN 5-325 MG TABLET PO PRN ×2 (13:25→22:03)
[2019-06-04] MEDS ORDERED: DILTIAZEM HCL/D5W 125 MG/125 ML RTUINJ IV PRN (15:48)
[2019-06-04] MEDS: ONDANSETRON HCL INJ/PF 4 MG/2 ML SDV IV PRN (15:52)
[2019-06-04 15:55] LABS: ANION GAP 6 (5-19); BLOOD UREA NITROGEN 47 mg/dL (7-20); CALCIUM 8.9 mg/dL (8.4-10.2); CARBON DIOXIDE 38 mmol/L (22-30); CHLORIDE 96 mmol/L (98-107); GLUCOSE 106 mg/dL (75-110); POTASSIUM 4.3 mmol/L (3.6-5.0)
[2019-06-04] MEDS ORDERED: DILTIAZEM HCL INJ 25 MG/5 ML VIAL IV ONE (16:30)
[2019-06-04] MEDS: DILTIAZEM HCL 30 MG TABLET PO SCH (17:40)
[2019-06-04] MEDS ORDERED: INFLUENZA QUAD (6MOS+) 2019-20 VAC 0.5 ML SYR IM ONE (18:57)
[2019-06-04] MEDS: ATORVASTATIN CALCIUM 20 MG TABLET PO SCH (22:03)
[2019-06-04] MEDS: VANCOMYCIN HCL 750 MG in DEXTROSE 5%-WATER 250 ML IV SCH (22:03)
[2019-06-04] MEDS: OXYBUTYNIN CHLORIDE 5 MG TABLET PO SCH (22:03)
[2019-06-05] MEDS: AZTREONAM 1 GM in DEXTROSE 5%-WATER 50 ML IV SCH ×3 (02:01→18:10)
[2019-06-05] MEDS: DILTIAZEM HCL 30 MG TABLET PO SCH ×2 (02:01→05:54)
[2019-06-05 06:37] LABS: HEMATOCRIT 26.5 % (36.0-47.0); HEMOGLOBIN 8.4 g/dL (12.0-15.5); MEAN CORPUSCULAR HEMOGLOBIN 26.2 pg (27.0-33.4); MEAN CORPUSCULAR HGB CONC 31.8 g/dL (32.0-36.0); MEAN CORPUSCULAR VOLUME 83 fl (80-97); PLATELET COUNT 200 10^3/uL (150-450); RED BLOOD COUNT 3.22 10^6/uL (3.72-5.28); RED CELL DISTRIBUTION WIDTH 22.8 % (11.5-14.0); WHITE BLOOD COUNT 6.4 10^3/uL (4.0-10.5)
--- NOTE | 2019-06-05 08:05 | PDOC PROGRESS REPORT ---
Subjective Progress Note for:: 06/04/19 Subjective:: 06/04/2019-no complaints Reason For Visit: ACUTE ON CHRONIC HYPOXIC RESPIRATORY FAILURE Physical Exam Vital Signs: Temp Pulse Resp BP Pulse Ox 98.3 F 86 17 136/65 H 95 06/05/19 03:45 06/05/19 07:00 06/05/19 03:45 06/05/19 03:45 06/05/19 04:56 Intake & Output 06/04/19 06/05/19 06/06/19 06:59 06:59 06:59 Intake Total 790 Balance 790 Weight 63.3 kg 59 kg General appearance: PRESENT: no acute distress, well-developed, well-nourished Neck exam: ABSENT: carotid bruit, JVD, lymphadenopathy, thyromegaly Respiratory exam: PRESENT: decreased breath sounds, symmetrical, tachypnea, unlabored, wheezes, other - On BiPAP Cardiovascular exam: PRESENT: irregular rhythm, +S1, +S2 Pulses: PRESENT: +1 pedal pulses bilateral Vascular exam: PRESENT: normal capillary refill GI/Abdominal exam: PRESENT: normal bowel sounds, soft. ABSENT: distended, guarding, mass, organolmegaly, rebound, tenderness Extremities exam: PRESENT: full ROM. ABSENT: calf tenderness, clubbing, pedal edema Neurological exam: PRESENT: alert, awake, oriented to person, oriented to place, oriented to time, oriented to situation, CN II-XII grossly intact. ABSENT: motor sensory deficit Psychiatric exam: PRESENT: appropriate affect, normal mood. ABSENT: homicidal ideation, suicidal ideation Skin exam: PRESENT: dry, intact, warm. ABSENT: cyanosis, rash Results Laboratory Results: 06/05/19 05:46 06/04/19 15:25 06/04/19 06/05/19 15:25 05:46 WBC 6.4 RBC 3.22 L Hgb 8.4 L Hct 26.5 L MCV 83 MCH 26.2 L MCHC 31.8 L RDW 22.8 H Plt Count 200 Sodium 140.0 Potassium 4.3 Chloride 96 L Carbon Dioxide 38 H Anion Gap 6 BUN 47 H Creatinine 1.29 H Est GFR ( Amer) 48 L Glucose 106 Calcium 8.9 06/03/19 06/04/19 13:16 16:31 Troponin I 0.017 NT-Pro-B Natriuret Pep 32909 H Impressions: Chest X-Ray 06/03/19 13:07 IMPRESSION: Opacification of the right lower chest from re-accumulation of pleural effusion and right middle and lower lobe consolidation atelectasis versus pneumonia. Findings are more prominent than on 06/01/2019 Assessment and Plan - Diagnosis (1) Acute on chronic respiratory failure with hypoxia Is this a current diagnosis for this admission?: Yes Plan: 06/03/2019-admit to [facility]. This is most likely multifactorial in nature with healthcare associated pneumonia and large right pleural effusion plus COPD exacerbation. At this time I suspect this is mostly from the pleural effusion and the pneumonia itself along with some congestive heart failure. Will place patient on Lasix 40 mg IV 3 times daily, I will have patient go through a therapeutic and diagnostic thoracentesis in the a.m. and I will treat patient with vancomycin and Azeotram secondary to multiple antibiotic allergies. Patient states allergies to prednisone although she is taking steroids at this point although I suspect she does not need these at this time. Patient does have some wheezing but I suspect this is most likely cardiac in nature. 05/27/2019-improved. Patient remains on BiPAP as needed. Able to talk in full sentences. Patient continues to diuresis at this time awaiting therapeutic and diagnostic thoracentesis. Continue patient on antibiotic therapy until cultures return may change plan of care as appropriate. (2) Recurrent pleural effusion on right Is this a current diagnosis for this admission?: Yes Plan: 06/03/2019-see #1 06/04/2019-awaiting therapeutic diagnostic thoracentesis (3) Acute on chronic diastolic (congestive) heart failure Is this a current diagnosis for this admission?: Yes Plan: 06/03/2019-see 1 06/04/2019-not in acute exacerbations time. Continue diuresis until we see a bump in creatinine. (4) Hyperkalemia Is this a current diagnosis for this admission?: Yes Plan: 06/03/2019-mild. Potassium 5.2. I suspect this will go down with diuresis recheck in the a.m. 06/04/2019-stable continue to follow (5) Hyperglycemia Is this a current diagnosis for this admission?: Yes Plan: 06/03/2019-carbohydrate controlled diet. A1c. Sliding scale insulin before meals and at bedtime I suspect this mostly from previous steroid use. 06/04/2019-continue to follow stable - Time Time Spent with patient: 15-24 minutes - Inpatient Certification Based on my medical assessment, after consideration of the patient's comorbidities, presenting symptoms, or acuity I expect that the services needed warrant INPATIENT care.: Yes I certify that my determination is in accordance with my understanding of Medicare's requirements for reasonable and necessary INPATIENT services [42 CFR 412.3e].: Yes Medical Necessity: Significant Comorbidiites Make Outpatient Treatment Too Risky, Need Close Monitoring Due to Risk of Patient Decompensation, Need for IV Antibiotics
--- NOTE | 2019-06-05 08:07 | PDOC PROGRESS REPORT ---
Subjective Progress Note for:: 06/05/19 Subjective:: 06/04/2019-no complaints 06/05/2019-no complaints this a.m. Reason For Visit: ACUTE ON CHRONIC HYPOXIC RESPIRATORY FAILURE Physical Exam Vital Signs: Temp Pulse Resp BP Pulse Ox 98.3 F 86 17 136/65 H 95 06/05/19 03:45 06/05/19 07:00 06/05/19 03:45 06/05/19 03:45 06/05/19 04:56 Intake & Output 06/04/19 06/05/19 06/06/19 06:59 06:59 06:59 Intake Total 790 Balance 790 Weight 63.3 kg 59 kg General appearance: PRESENT: no acute distress, well-developed, well-nourished Neck exam: ABSENT: carotid bruit, JVD, lymphadenopathy, thyromegaly Respiratory exam: PRESENT: decreased breath sounds, symmetrical, unlabored, wheezes, other - On BiPAP Cardiovascular exam: PRESENT: irregular rhythm, +S1, +S2 Pulses: PRESENT: +1 pedal pulses bilateral Vascular exam: PRESENT: normal capillary refill GI/Abdominal exam: PRESENT: normal bowel sounds, soft. ABSENT: distended, guarding, mass, organolmegaly, rebound, tenderness Neurological exam: PRESENT: alert, awake, oriented to person, oriented to place, oriented to time, oriented to situation, CN II-XII grossly intact. ABSENT: motor sensory deficit Psychiatric exam: PRESENT: appropriate affect, normal mood. ABSENT: homicidal ideation, suicidal ideation Skin exam: PRESENT: dry, intact, warm. ABSENT: cyanosis, rash Results Laboratory Results: 06/05/19 05:46 06/04/19 15:25 06/04/19 06/05/19 15:25 05:46 WBC 6.4 RBC 3.22 L Hgb 8.4 L Hct 26.5 L MCV 83 MCH 26.2 L MCHC 31.8 L RDW 22.8 H Plt Count 200 Sodium 140.0 Potassium 4.3 Chloride 96 L Carbon Dioxide 38 H Anion Gap 6 BUN 47 H Creatinine 1.29 H Est GFR ( Amer) 48 L Glucose 106 Calcium 8.9 06/03/19 06/04/19 13:16 16:31 Troponin I 0.017 NT-Pro-B Natriuret Pep 97398 H Impressions: Chest X-Ray 06/03/19 13:07 IMPRESSION: Opacification of the right lower chest from re-accumulation of pleural effusion and right middle and lower lobe consolidation atelectasis versus pneumonia. Findings are more prominent than on 06/01/2019 Assessment and Plan - Diagnosis (1) Acute on chronic respiratory failure with hypoxia Is this a current diagnosis for this admission?: Yes Plan: 06/03/2019-admit to [facility]. This is most likely multifactorial in nature with healthcare associated pneumonia and large right pleural effusion plus COPD exacerbation. At this time I suspect this is mostly from the pleural effusion and the pneumonia itself along with some congestive heart failure. Will place patient on Lasix 40 mg IV 3 times daily, I will have patient go through a therapeutic and diagnostic thoracentesis in the a.m. and I will treat patient with vancomycin and Azeotram secondary to multiple antibiotic allergies. Patient states allergies to prednisone although she is taking steroids at this point although I suspect she does not need these at this time. Patient does h ave some wheezing but I suspect this is most likely cardiac in nature. 06/04/2019-improved. Patient remains on BiPAP as needed. Able to talk in full sentences. Patient continues to diuresis at this time awaiting therapeutic and diagnostic thoracentesis. Continue patient on antibiotic therapy until cultures return may change plan of care as appropriate. 06/05/2019-improved. Patient will go for thoracentesis this a.m. Continues on BiPAP. No acute complaints this time. Continue Lasix with diuresis until we see a bump in creatinine. (2) Recurrent pleural effusion on right Is this a current diagnosis for this admission?: Yes Plan: 06/03/2019-see #1 06/04/2019-awaiting therapeutic diagnostic thoracentesis 06/05/2019-thoracentesis this a.m. (3) Acute on chronic diastolic (congestive) heart failure Is this a current diagnosis for this admission?: Yes Plan: 06/03/2019-see 1 06/04/2019-not in acute exacerbations time. Continue diuresis until we see a bump in creatinine. 06/05/2019-stable continue diuresis (4) Hyperkalemia Is this a current diagnosis for this admission?: Yes Plan: 06/03/2019-mild. Potassium 5.2. I suspect this will go down with diuresis recheck in the a.m. 06/04/2019-stable continue to follow 06/05/2019-stable (5) Hyperglycemia Is this a current diagnosis for this admission?: Yes Plan: 06/03/2019-carbohydrate controlled diet. A1c. Sliding scale insulin before meals and at bedtime I suspect this mostly from previous steroid use. 06/04/2019-continue to follow stable 06/05/2019-stable - Time Time Spent with patient: 15-24 minutes - Inpatient Certification Based on my medical assessment, after consideration of the patient's comorbidities, presenting symptoms, or acuity I expect that the services needed warrant INPATIENT care.: Yes I certify that my determination is in accordance with my understanding of Medicare's requirements for reasonable and necessary INPATIENT services [42 CFR 412.3e].: Yes Medical Necessity: Significant Comorbidiites Make Outpatient Treatment Too Risky, Need Close Monitoring Due to Risk of Patient Decompensation, Need for IV Antibiotics
[2019-06-05] MEDS: INSULIN REG, HUMAN 100 UNIT/ML 3 ML VIAL (PYX) SUBCUT SCH (08:12)
[2019-06-05] MEDS: FLUTICASONE/VILANTEROL 200-25 MCG/DOSE IH SCH (09:52)
[2019-06-05] MEDS: OXYBUTYNIN CHLORIDE 5 MG TABLET PO SCH ×2 (09:52→21:52)
[2019-06-05] MEDS: DULOXETINE HCL 20 MG CAPSULE.DR PO SCH (09:52)
[2019-06-05] MEDS ORDERED: ALBUTEROL SULFATE HFA (90 MCG/PUFF) 200 PUFF/8.5 GM MDI IH PRN (09:52)
[2019-06-05] MEDS: CALCITRIOL 0.25 MCG CAPSULE PO SCH (09:52)
[2019-06-05] MEDS: POTASSIUM CHLORIDE 10 MEQ TABLET.ER PO SCH (09:52)
[2019-06-05] MEDS: METOPROLOL TARTRATE 50 MG TABLET PO SCH ×2 (09:52→21:52)
[2019-06-05] MEDS: FUROSEMIDE INJ/PF 40 MG/4 ML SDV IV SCH ×3 (09:52→18:10)
--- NOTE | 2019-06-05 12:14 | EKG REPORT ---
SEVERITY:- ABNORMAL ECG - ATRIAL FIBRILLATION MULTIPLE PREMATURE COMPLEXES, VENTRICULAR BORDERLINE T ABNORMALITIES, INFERIOR LEADS BORDERLINE PROLONGED QT INTERVAL : Confirmed by: Eunice Servin 05-Jun-2019 12:14:01
[2019-06-05 15:03] LABS: FLUID SOURCE LUNG; FLUID TYPE PLEURAL
[2019-06-05 15:04] LABS: FLUID COLOR YELLOW; FLUID VISCOSITY LIQUID
[2019-06-05 15:14] LABS: FLUID APPEARANCE HAZY
--- NOTE | 2019-06-05 15:17 | RADIOLOGY REPORT (SQ) ---
EXAM DESCRIPTION: CHEST SINGLE VIEW COMPLETED DATE/TIME: 06/05/2019 2:24 pm REASON FOR STUDY: POST THRA RT PLEURAL EFFUSION COMPARISON: Chest films 05/01/2019, 06/01/2019, 06/03/2019 EXAM PARAMETERS: NUMBER OF VIEWS: One view. TECHNIQUE: Single frontal radiographic view of the chest acquired. RADIATION DOSE: NA LIMITATIONS: None. FINDINGS: LUNGS AND PLEURA: This study was performed immediately post right thoracentesis. Signific ant decrease in right pleural effusion, trace fluid persists at the right lung base. No pneumothorax . Minimal right basilar atelectasis. Trace left pleural effusion with minimal left basilar atelectasis, stable. No pulmonary vascular congestion or alveolar edema. MEDIASTINUM AND HILAR STRUCTURES: No masses. Contour normal. HEART AND VASCULAR STRUCTURES: No cardiomegaly BONES: No acute findings. HARDWARE: None in the chest. OTHER: No other significant finding. IMPRESSION: Post right-sided thoracentesis. Significant decrease in right pleural effusion, no pneu mothorax. TECHNICAL DOCUMENTATION: JOB ID: [id number] [email or web address]- All Rights Reserved Reading location - IP/workstation name: [email or web address]
--- NOTE | 2019-06-05 15:47 | RADIOLOGY REPORT (SQ) ---
EXAM DESCRIPTION: U/S THORACENTESIS WITH IMAGING COMPLETED DATE/TIME: 06/05/2019 3:33 pm REASON FOR STUDY: pleural effusion COMPARISON: None. LIMITATIONS: None. PROCEDURE: Procedure, risks, benefit, and alternative explained to patient who then gave written con sent. The posterior right chest wall was marked using ultrasound guidance. A time-out was called fo r correct marking verification. Chest prepped and draped using sterile technique. Local anesthesia a chieved using 8 ml of 1% lidocaine injection. A 6fr Safe-T- Centesis set was introduced into the rig ht pleural space. Fluid was aspirated. The catheter was removed and the entry site was covered with sterile bandage. No immediate complications noted. Images acquired during the procedure were stored on PACS. FINDINGS: ENTRY SITE: posterior right chest. FLUID VOLUME: 1,000 CC FLUID ANALYSIS: Straw-colored OTHER: Fluid sent to the lab for testing. IMPRESSION: SUCCESSFUL THORACENTESIS USING ULTRASOUND GUIDANCE. COMMENT: Patient medication list reviewed: Yes- Quality ID# [id number]:Eligible professional attests to doc umenting in the medical record they obtained, updated, or reviewed the patient's current medications. TECHNICAL DOCUMENTATION: JOB ID: [id number] [employer]- All Rights Reserved Reading location - IP/workstation name: [email or web address]
--- NOTE | 2019-06-05 16:53 | RADIOLOGY REPORT (SQ) ---
EXAM DESCRIPTION: CHEST SINGLE VIEW COMPLETED DATE/TIME: 06/05/2019 4:19 pm REASON FOR STUDY: 2 hr POST THRA RT PLEURAL EFFUSION COMPARISON: 06/05/2019 EXAM PARAMETERS: NUMBER OF VIEWS: One view. TECHNIQUE: Single frontal radiographic view of the chest acquired. RADIATION DOSE: NA LIMITATIONS: None. FINDINGS: LUNGS AND PLEURA: Status post right thoracentesis. No evidence of pneumothorax. Since t he previous examination, new mild airspace disease in the right lower lung may represent atelectasis. Slight increased in the right pleural effusion. Stable small left pleural effusion and basilar ate lectasis. MEDIASTINUM AND HILAR STRUCTURES: No masses. Contour normal. HEART AND VASCULAR STRUCTURES: Heart normal in size. Normal vasculature. BONES: No acute findings. HARDWARE: None in the chest. OTHER: No other significant finding. IMPRESSION: 1. Status post right thoracentesis. No evidence of pneumothorax. 2. Small right pleural effusion appears slightly larger. Mild airspace disease in the right lower l sb, new finding may represent atelectasis. 3. Stable small left pleural effusion and basilar atelectasis. TECHNICAL DOCUMENTATION: JOB ID: [id number] [employer]- All Rights Reserved Reading location - IP/workstation name: [email or web address]
[2019-06-05 17:16] LABS: ANION GAP 6 (5-19); BLOOD UREA NITROGEN 39 mg/dL (7-20); CALCIUM 8.7 mg/dL (8.4-10.2); CARBON DIOXIDE 39 mmol/L (22-30); CHLORIDE 95 mmol/L (98-107); GLUCOSE 118 mg/dL (75-110); POTASSIUM 4.1 mmol/L (3.6-5.0)
[2019-06-05] MEDS: VANCOMYCIN HCL 750 MG in DEXTROSE 5%-WATER 250 ML IV SCH (21:52)
[2019-06-05] MEDS: ATORVASTATIN CALCIUM 20 MG TABLET PO SCH (21:52)
[2019-06-06] MEDS: AZTREONAM 1 GM in DEXTROSE 5%-WATER 50 ML IV SCH ×3 (01:55→17:27)
[2019-06-06 06:36] LABS: HEMATOCRIT 25.5 % (36.0-47.0); HEMOGLOBIN 8.3 g/dL (12.0-15.5); MEAN CORPUSCULAR HEMOGLOBIN 26.8 pg (27.0-33.4); MEAN CORPUSCULAR HGB CONC 32.6 g/dL (32.0-36.0); MEAN CORPUSCULAR VOLUME 82 fl (80-97); PLATELET COUNT 175 10^3/uL (150-450); RED BLOOD COUNT 3.11 10^6/uL (3.72-5.28)
--- NOTE | 2019-06-06 07:54 | PDOC PROGRESS REPORT ---
Subjective Progress Note for:: 06/06/19 Subjective:: 06/04/2019-no complaints 06/05/2019-no complaints this a.m. 06/06/2019-improved breathing this morning after thoracentesis yesterday. Reason For Visit: ACUTE ON CHRONIC HYPOXIC RESPIRATORY FAILURE Physical Exam Vital Signs: Temp Pulse Resp BP Pulse Ox 98.2 F 103 H 20 157/83 H 99 06/06/19 04:16 06/06/19 04:16 06/06/19 04:16 06/06/19 04:16 06/06/19 04:16 Intake & Output 06/05/19 06/06/19 06/07/19 06:59 06:59 06:59 Intake Total 790 920 Balance 790 920 Weight 59 kg General appearance: PRESENT: no acute distress, well-developed, well-nourished Neck exam: ABSENT: carotid bruit, JVD, lymphadenopathy, thyromegaly Respiratory exam: PRESENT: decreased breath sounds, symmetrical, unlabored, wheezes Cardiovascular exam: PRESENT: irregular rhythm, +S1, +S2 Pulses: PRESENT: +1 pedal pulses bilateral Vascular exam: PRESENT: normal capillary refill GI/Abdominal exam: PRESENT: normal bowel sounds, soft. ABSENT: distended, guarding, mass, organolmegaly, rebound, tenderness Extremities exam: PRESENT: full ROM. ABSENT: calf tenderness, clubbing, pedal edema Neurological exam: PRESENT: alert, awake, oriented to person, oriented to place, oriented to time, oriented to situation, CN II-XII grossly intact. ABSENT: motor sensory deficit Psychiatric exam: PRESENT: appropriate affect, normal mood. ABSENT: homicidal ideation, suicidal ideation Skin exam: PRESENT: abrasion Results Laboratory Results: 06/06/19 06:09 06/05/19 16:42 06/05/19 06/05/19 06/06/19 14:00 16:42 06:09 WBC 6.0 RBC 3.11 L Hgb 8.3 L Hct 25.5 L MCV 82 MCH 26.8 L MCHC 32.6 RDW 22.0 H Plt Count 175 Sodium 140.1 Potassium 4.1 Chloride 95 L Carbon Dioxide 39 H Anion Gap 6 BUN 39 H Creatinine 1.19 Est GFR ( Amer) 52 L Glucose 118 H Calcium 8.7 Fluid Type PLEURAL Fluid Source LUNG Fluid Color YELLOW Fluid Appearance HAZY Fluid Viscosity LIQUID Fluid WBC 407 Fluid RBC 35 06/03/19 06/04/19 13:16 16:31 Troponin I 0.017 NT-Pro-B Natriuret Pep [id number] H Impressions: Thoracentesis Ultrasound 06/05/19 08:00 IMPRESSION: SUCCESSFUL THORACENTESIS USING ULTRASOUND GUIDANCE. Chest X-Ray 06/05/19 16:10 IMPRESSION: 1. Status post right thoracentesis. No evidence of pneumothorax. 2. Small right pleural effusion appears slightly larger. Mild airspace disease in the right lower lung, new finding may represent atelectasis. 3. Stable small left pleural effusion and basilar atelectasis. Assessment and Plan - Diagnosis (1) Acute on chronic respiratory failure with hypoxia Is this a current diagnosis for this admission?: Yes Plan: 06/03/2019-admit to [facility]. This is most likely multifactorial in nature with healthcare associated pneumonia and large right pleural effusion plus COPD exacerbation. At this time I suspect this is mostly from the pleural effusion and the pneumonia itself along with some congestive heart failure. Will place patient on Lasix 40 mg IV 3 times daily, I will have patient go through a therapeutic and diagnostic thoracentesis in the a.m. and I will treat patient with vancomycin and Azeotram secondary to multiple antibiotic allergies. Patient states allergies to prednisone although she is taking steroids at this point although I suspect she does not need these at this time. Patient does have some wheezing but I suspect this is most likely cardiac in nature. 06/04/2019-improved. Patient remains on BiPAP as needed. Able to talk in full sentences. Patient continues to diuresis at this time awaiting therapeutic and diagnostic thoracentesis. Continue patient on antibiotic therapy until cultures return may change plan of care as appropriate. 06/05/2019-improved. Patient will go for thoracentesis this a.m. Continues on BiPAP. No acute complaints this time. Continue Lasix with diuresis until we see a bump in creatinine. 06/06/2019-continued improvement. Patient did undergo thoracentesis yesterday with 1000 mL of strawlike material taken off. She continues on BiPAP as needed she is on nasal cannula this morning speak in full sentences. Patient is diuresed well I will switch her from IV Lasix to 40 g p.o. twice daily. Continue to follow (2) Recurrent pleural effusion on right Is this a current diagnosis for this admission?: Yes Plan: 06/03/2019-see #1 06/04/2019-awaiting therapeutic diagnostic thoracentesis 06/05/2019-thoracentesis this a.m. 06/06/2019-see #1 (3) Acute on chronic diastolic (congestive) heart failure Is this a current diagnosis for this admission?: Yes Plan: 06/03/2019-see 1 06/04/2019-not in acute exacerbations time. Continue diuresis until we see a bump in creatinine. 06/05/2019-stable continue diuresis 06/06/2019-not in acute exacerbation to this time. Stable. Continue diuresis with Lasix 40 g p.o. twice daily. (4) Hyperkalemia Is this a current diagnosis for this admission?: Yes Plan: 06/03/2019-mild. Potassium 5.2. I suspect this will go down with diuresis recheck in the a.m. 06/04/2019-stable continue to follow 06/05/2019-stable -stable continue to follow (5) Hyperglycemia Is this a current diagnosis for this admission?: Yes Plan: 06/03/2019-carbohydrate controlled diet. A1c. Sliding scale insulin before meals and at bedtime I suspect this mostly from previous steroid use. 06/04/2019-continue to follow stable 06/05/2019-stable 06/06/2019-stable continue to follow - Time Time Spent with patient: 15-24 minutes - Inpatient Certification Based on my medical assessment, after consideration of the patient's comorbiditi es, presenting symptoms, or acuity I expect that the services needed warrant INPATIENT care.: Yes I certify that my determination is in accordance with my understanding of [facility]'s requirements for reasonable and necessary INPATIENT services [42 CFR 412.3e].: Yes Medical Necessity: Significant Comorbidiites Make Outpatient Treatment Too Risky, Need Close Monitoring Due to Risk of Patient Decompensation
[2019-06-06] MEDS: OXYBUTYNIN CHLORIDE 5 MG TABLET PO SCH ×2 (10:18→21:16)
[2019-06-06] MEDS: POTASSIUM CHLORIDE 10 MEQ TABLET.ER PO SCH (10:18)
[2019-06-06] MEDS: METOPROLOL TARTRATE 100 MG TABLET PO SCH ×2 (10:18→21:16)
[2019-06-06] MEDS: FUROSEMIDE 40 MG TABLET PO SCH ×2 (10:18→17:27)
[2019-06-06] MEDS: FLUTICASONE/VILANTEROL 200-25 MCG/DOSE IH SCH (10:19)
[2019-06-06] MEDS: DULOXETINE HCL 20 MG CAPSULE.DR PO SCH (10:19)
[2019-06-06] MEDS: ONDANSETRON HCL INJ/PF 4 MG/2 ML SDV IV PRN (14:17)
[2019-06-06] MEDS: APIXABAN 5 MG TABLET PO SCH (17:27)
[2019-06-06 20:05] LABS: BLOOD UREA NITROGEN 40 mg/dL (7-20); CHLORIDE 96 mmol/L (98-107); GLUCOSE 110 mg/dL (75-110); POTASSIUM 4.4 mmol/L (3.6-5.0)
[2019-06-06 20:09] LABS: VANCOMYCIN,TROUGH 10.6 ug/mL (5.0-20.0)
[2019-06-06 20:21] LABS: ANION GAP 4 (5-19)
[2019-06-06 20:22] LABS: CARBON DIOXIDE 40 mmol/L (22-30)
[2019-06-06] MEDS: VANCOMYCIN HCL 750 MG in DEXTROSE 5%-WATER 250 ML IV SCH (20:23)
[2019-06-06] MEDS: ATORVASTATIN CALCIUM 20 MG TABLET PO SCH (21:16)
[2019-06-06] MEDS: ACETAMINOPHEN 325 MG TABLET PO PRN (23:04)
[2019-06-07] MEDS: AZTREONAM 1 GM in DEXTROSE 5%-WATER 50 ML IV SCH ×3 (01:06→17:44)
[2019-06-07 06:12] LABS: HEMATOCRIT 26.6 % (36.0-47.0); HEMOGLOBIN 8.5 g/dL (12.0-15.5); MEAN CORPUSCULAR HEMOGLOBIN 26.3 pg (27.0-33.4); MEAN CORPUSCULAR VOLUME 82 fl (80-97); PLATELET COUNT 170 10^3/uL (150-450); RED BLOOD COUNT 3.23 10^6/uL (3.72-5.28); RED CELL DISTRIBUTION WIDTH 21.5 % (11.5-14.0); WHITE BLOOD COUNT 5.2 10^3/uL (4.0-10.5)
[2019-06-07 06:29] LABS: BLOOD UREA NITROGEN 38 mg/dL (7-20); CALCIUM 8.7 mg/dL (8.4-10.2); CHLORIDE 96 mmol/L (98-107); GLUCOSE 83 mg/dL (75-110); POTASSIUM 4.2 mmol/L (3.6-5.0)
[2019-06-07 06:47] LABS: CARBON DIOXIDE 40 mmol/L (22-30)
[2019-06-07 07:17] LABS: ANION GAP 3 (5-19)
--- NOTE | 2019-06-07 08:19 | PDOC PROGRESS REPORT ---
Subjective Progress Note for:: 06/07/19 Subjective:: 06/04/2019-no complaints 06/05/2019-no complaints this a.m. 06/06/2019-improved breathing this morning after thoracentesis yesterday. 06/07/2019-no complaints this a.m. Reason For Visit: ACUTE ON CHRONIC HYPOXIC RESPIRATORY FAILURE Physical Exam Vital Signs: Temp Pulse Resp BP Pulse Ox 97.9 F 86 14 155/81 H 100 06/07/19 04:51 06/07/19 04:51 06/07/19 04:51 06/07/19 04:51 06/07/19 04:51 Intake & Output 06/06/19 06/07/19 06/08/19 06:59 06:59 06:59 Intake Total 1070 628 Output Total 700 Balance 1070 -72 Weight 57 kg General appearance: PRESENT: no acute distress, well-developed, well-nourished Neck exam: ABSENT: carotid bruit, JVD, lymphadenopathy, thyromegaly Respiratory exam: PRESENT: decreased breath sounds, symmetrical, unlabored Cardiovascular exam: PRESENT: irregular rhythm Pulses: PRESENT: +1 pedal pulses bilateral Vascular exam: PRESENT: normal capillary refill GI/Abdominal exam: PRESENT: normal bowel sounds, soft. ABSENT: distended, guarding, mass, organolmegaly, rebound, tenderness Extremities exam: PRESENT: full ROM. ABSENT: calf tenderness, clubbing, pedal edema Neurological exam: PRESENT: alert, awake, oriented to person, oriented to place, oriented to time, oriented to situation, CN II-XII grossly intact. ABSENT: motor sensory deficit Psychiatric exam: PRESENT: appropriate affect, normal mood. ABSENT: homicidal ideation, suicidal ideation Skin exam: PRESENT: dry, intact, warm. ABSENT: cyanosis, rash Results Laboratory Results: 06/07/19 05:46 06/07/19 05:46 06/06/19 06/07/19 06/07/19 19:30 05:46 05:46 WBC 5.2 RBC 3.23 L Hgb 8.5 L Hct 26.6 L MCV 82 MCH 26.3 L MCHC 32.0 RDW 21.5 H Plt Count 170 Sodium 139.9 138.8 Potassium 4.4 4.2 Chloride 96 L 96 L Carbon Dioxide 40 H* 40 H* Anion Gap 4 L 3 L BUN 40 H 38 H Creatinine 1.04 0.94 Est GFR ( Amer) > 60 > 60 Glucose 110 83 Calcium 9.0 8.7 06/03/19 06/04/19 13:16 16:31 Troponin I 0.017 NT-Pro-B Natriuret Pep 89943 H Impressions: Thoracentesis Ultrasound 06/05/19 08:00 IMPRESSION: SUCCESSFUL THORACENTESIS USING ULTRASOUND GUIDANCE. Chest X-Ray 06/05/19 16:10 IMPRESSION: 1. Status post right thoracentesis. No evidence of pneumothorax. 2. Small right pleural effusion appears slightly larger. Mild airspace disease in the right lower lung, new finding may represent atelectasis. 3. Stable small left pleural effusion and basilar atelectasis. Assessment and Plan - Diagnosis (1) Acute on chronic respiratory failure with hypoxia Is this a current diagnosis for this admission?: Yes Plan: 06/03/2019-admit to [facility]. This is most likely multifactorial in nature with healthcare associated pneumonia and large right pleural effusion plus COPD exacerbation. At this time I suspect this is mostly from the pleural effusion and the pneumonia itself along with some congestive heart failure. Will place patient on Lasix 40 mg IV 3 times daily, I will have patient go through a therapeutic and diagnostic thoracentesis in the a.m. and I will treat patient with vancomycin and Azeotram secondary to multiple antibiotic allergies. Patient states allergies to prednisone although she is taking steroids at this point although I suspect she does not need these at this time. Patient does have some wheezing but I suspect this is most likely cardiac in nature. 06/04/2019-improved. Patient remains on BiPAP as needed. Able to talk in full sentences. Patient continues to diuresis at this time awaiting therapeutic and diagnostic thoracentesis. Continue patient on antibiotic therapy until cultures return may change plan of care as appropriate. 06/05/2019-improved. Patient will go for thoracentesis this a.m. Continues on BiPAP. No acute complaints this time. Continue Lasix with diuresis until we see a bump in creatinine. 06/06/2019-continued improvement. Patient did undergo thoracentesis yesterday with 1000 mL of strawlike material taken off. She continues on BiPAP as needed she is on nasal cannula this morning speak in full sentences. Patient is diuresed well I will switch her from IV Lasix to 40 g p.o. twice daily. Continue to follow 06/07/2019-continued improvement. Awaiting laboratory diagnostics on pleural fluid from thoracentesis. Continue BiPAP at night on nasal cannula this a.m. Anticipate discharge home in the a.m. (2) Recurrent pleural effusion on right Is this a current diagnosis for this admission?: Yes Plan: 06/03/2019-see #1 06/04/2019-awaiting therapeutic diagnostic thoracentesis 06/05/2019-thoracentesis this a.m. 06/06/2019-see #1 06/07/2019-awaiting diagnostics from pleural fluid after thoracentesis. Will make change plan of care at that time (3) Acute on chronic diastolic (congestive) heart failure Is this a current diagnosis for this admission?: Yes Plan: 06/03/2019-see 1 06/04/2019-not in acute exacerbations time. Continue diuresis until we see a bump in creatinine. 06/05/2019-stable continue diuresis 06/06/2019-not in acute exacerbation to this time. Stable. Continue diuresis with Lasix 40 mg p.o. twice daily. 06/07/2019-not in acute exacerbation. Continues Lasix 40 mg p.o. twice daily (4) Hyperkalemia Is this a current diagnosis for this admission?: Yes Plan: 06/03/2019-mild. Potassium 5.2. I suspect this will go down with diuresis recheck in the a.m. 06/04/2019-stable continue to follow 06/05/2019-stable -stable continue to follow 06/07/2019-stable (5) Hyperglycemia Is this a current diagnosis for this admission?: Yes Plan: 06/03/2019-carbohydrate controlled diet. A1c. Sliding scale insulin before meals and at bedtime I suspect this mostly from previous steroid use. 06/04/2019-continue to follow stable 06/05/2019-stable 06/06/2019-stable continue to follow 06/07/2019-stable - Time Time Spent with patient: 15-24 minutes - Inpatient Certification Based on my medical assessment, after consideration of the patient's comorbidities, presenting symptoms, or acuity I expect that the services needed warrant INPATIENT care.: Yes I certify that my determination is in accordance with my understanding of Medicare's requirements for reasonable and necessary INPATIENT services [42 CFR 412.3e].: Yes Medical Necessity: Significant Comorbidiites Make Outpatient Treatment Too Risky, Need Close Monitoring Due to Risk of Patient Decompensation
[2019-06-07] MEDS: FUROSEMIDE 40 MG TABLET PO SCH ×2 (09:31→17:44)
[2019-06-07] MEDS: POTASSIUM CHLORIDE 10 MEQ TABLET.ER PO SCH (09:31)
[2019-06-07] MEDS: METOPROLOL TARTRATE 100 MG TABLET PO SCH ×2 (09:31→22:12)
[2019-06-07] MEDS: APIXABAN 5 MG TABLET PO SCH ×2 (09:32→17:44)
[2019-06-07] MEDS: OXYBUTYNIN CHLORIDE 5 MG TABLET PO SCH ×2 (09:32→22:12)
[2019-06-07] MEDS: DULOXETINE HCL 20 MG CAPSULE.DR PO SCH (09:32)
[2019-06-07] MEDS: FLUTICASONE/VILANTEROL 200-25 MCG/DOSE IH SCH (09:32)
[2019-06-07] MEDS ORDERED: PORACTANT ALFA INTRATRACHEAL 240 MG/3 ML VIAL ITRACH ONE (12:00)
[2019-06-07] MEDS: OXYCODONE-ACETAMINOPHEN 5-325 MG TABLET PO PRN (16:33)
[2019-06-07] MEDS: GUAIFENESIN 600 MG TABLET.SA PO SCH (17:44)
[2019-06-07] MEDS ORDERED: VANCOMYCIN HCL 1,000 MG in DEXTROSE 5%-WATER 250 ML IV SCH (18:00)
[2019-06-07] MEDS: ATORVASTATIN CALCIUM 20 MG TABLET PO SCH (22:12)
[2019-06-08] MEDS: AZTREONAM 1 GM in DEXTROSE 5%-WATER 50 ML IV SCH (02:35)
[2019-06-08 04:16] LABS: HEMATOCRIT 26.4 % (36.0-47.0); HEMOGLOBIN 8.5 g/dL (12.0-15.5); MEAN CORPUSCULAR HEMOGLOBIN 26.3 pg (27.0-33.4); MEAN CORPUSCULAR HGB CONC 32.1 g/dL (32.0-36.0); MEAN CORPUSCULAR VOLUME 82 fl (80-97); PLATELET COUNT 189 10^3/uL (150-450); RED BLOOD COUNT 3.22 10^6/uL (3.72-5.28); RED CELL DISTRIBUTION WIDTH 21.1 % (11.5-14.0)
[2019-06-08 04:39] LABS: BLOOD UREA NITROGEN 33 mg/dL (7-20); CALCIUM 8.5 mg/dL (8.4-10.2); CHLORIDE 95 mmol/L (98-107); GLUCOSE 82 mg/dL (75-110)
[2019-06-08 05:04] LABS: ANION GAP 3 (5-19)
[2019-06-08 05:06] LABS: CARBON DIOXIDE 41 mmol/L (22-30)
[2019-06-08] MEDS ORDERED: MEDROL DOSEPAK (DAY 1 BRKFST) (EDIT AFTER 0800) PO SCH (08:00)
--- NOTE | 2019-06-08 08:13 | PDOC PROGRESS REPORT ---
Subjective Progress Note for:: 06/08/19 Subjective:: 06/04/2019-no complaints 06/05/2019-no complaints this a.m. 06/06/2019-improved breathing this morning after thoracentesis yesterday. 06/07/2019-no complaints this a.m. 06/08/2019-no complaints Reason For Visit: ACUTE ON CHRONIC HYPOXIC RESPIRATORY FAILURE Physical Exam Vital Signs: Temp Pulse Resp BP Pulse Ox 97.8 F 90 14 152/92 H 100 06/08/19 04:31 06/08/19 07:00 06/08/19 04:31 06/08/19 04:36 06/08/19 04:31 Intake & Output 06/07/19 06/08/19 06/09/19 06:59 06:59 06:59 Intake Total 628 662 250 Output Total 700 Balance -72 662 250 Weight 61.1 kg 61 kg General appearance: PRESENT: no acute distress, well-developed, well-nourished Neck exam: ABSENT: carotid bruit, JVD, lymphadenopathy, thyromegaly Respiratory exam: PRESENT: clear to auscultation emma, decreased breath sounds, symmetrical, unlabored. ABSENT: rales, rhonchi, wheezes Cardiovascular exam: PRESENT: RRR. ABSENT: diastolic murmur, rubs, systolic murmur Pulses: PRESENT: +1 pedal pulses bilateral Vascular exam: PRESENT: normal capillary refill GI/Abdominal exam: PRESENT: normal bowel sounds, soft. ABSENT: distended, guarding, mass, organolmegaly, rebound, tenderness Extremities exam: PRESENT: full ROM. ABSENT: calf tenderness, clubbing, pedal edema Neurological exam: PRESENT: alert, awake, oriented to person, oriented to place, oriented to time, oriented to situation, CN II-XII grossly intact. ABSENT: motor sensory deficit Psychiatric exam: PRESENT: appropriate affect, normal mood. ABSENT: homicidal ideation, suicidal ideation Skin exam: PRESENT: dry, intact, warm. ABSENT: cyanosis, rash Results Laboratory Results: 06/08/19 03:49 06/08/19 03:49 06/05/19 06/05/19 06/05/19 14:00 14:00 14:00 WBC RBC Hgb Hct MCV MCH MCHC RDW Plt Count Sodium Potassium Chloride Carbon Dioxide Anion Gap BUN Creatinine Est GFR ( Amer) Glucose Calcium Fluid Glucose 103 Fluid Total Protein 2.0 Fluid LDH 73 06/08/19 06/08/19 03:49 03:49 WBC 5.0 RBC 3.22 L Hgb 8.5 L Hct 26.4 L MCV 82 MCH 26.3 L MCHC 32.1 RDW 21.1 H Plt Count 189 Sodium 139.2 Potassium 4.0 Chloride 95 L Carbon Dioxide 41 H* Anion Gap 3 L BUN 33 H Creatinine 0.99 Est GFR ( Amer) > 60 Glucose 82 Calcium 8.5 Fluid Glucose Fluid Total Protein Fluid LDH 06/03/19 06/04/19 13:16 16:31 Troponin I 0.017 NT-Pro-B Natriuret Pep 69298 H Impressions: Thoracentesis Ultrasound 06/05/19 08:00 IMPRESSION: SUCCESSFUL THORACENTESIS USING ULTRASOUND GUIDANCE. Chest X-Ray 06/05/19 16:10 IMPRESSION: 1. Status post right thoracentesis. No evidence of pneumothorax. 2. Small right pleural effusion appears slightly larger. Mild airspace disease in the right lower lung, new finding may represent atelectasis. 3. Stable small left pleural effusion and basilar atelectasis. Assessment and Plan - Diagnosis (1) Acute on chronic respiratory failure with hypoxia Is this a current diagnosis for this admission?: Yes Plan: 06/03/2019-admit to [facility]. This is most likely multifactorial in nature with healthcare associated pneumonia and large right pleural effusion plus COPD exacerbation. At this time I suspect this is mostly from the pleural effusion and the pneumonia itself along with some congestive heart failure. Will place patient on Lasix 40 mg IV 3 times daily, I will have patient go through a therapeutic and diagnostic thoracentesis in the a.m. and I will treat patient with vancomycin and Azeotram secondary to multiple antibiotic allergies. Patient states allergies to prednisone although she is taking steroids at this point although I suspect she does not need these at this time. Patient does have some wheezing but I suspect this is most likely cardiac in nature. 06/04/2019-improved. Patient remains on BiPAP as needed. Able to talk in full sentences. Patient continues to diuresis at this time awaiting therapeutic and diagnostic thoracentesis. Continue patient on antibiotic therapy until cultures return may change plan of care as appropriate. 06/05/2019-improved. Patient will go for thoracentesis this a.m. Continues on BiPAP. No acute complaints this time. Continue Lasix with diuresis until we see a bump in creatinine. 06/06/2019-continued improvement. Patient did undergo thoracentesis yesterday with 1000 mL of strawlike material taken off. She continues on BiPAP as needed she is on nasal cannula this morning speak in full sentences. Patient is diuresed well I will switch her from IV Lasix to 40 g p.o. twice daily. Continue to follow 06/07/2019-continued improvement. Awaiting laboratory diagnostics on pleural fluid from thoracentesis. Continue BiPAP at night on nasal cannula this a.m. Anticipate discharge home in the a.m. 06/08/2019-improved. Pleural fluid looks exudative in nature. We will get a CT of the chest with IV contrast to rule out neoplasm (2) Recurrent pleural effusion on right Is this a current diagnosis for this admission?: Yes Plan: 06/03/2019-see #1 06/04/2019-awaiting therapeutic diagnostic thoracentesis 06/05/2019-thoracentesis this a.m. 06/06/2019-see #1 06/07/2019-awaiting diagnostics from pleural fluid after thoracentesis. Will make change plan of care at that time 06/08/2019-see #1 (3) Acute on chronic diastolic (congestive) heart failure Is this a current diagnosis for this admission?: Yes Plan: 06/03/2019-see 1 06/04/2019-not in acute exacerbations time. Continue diuresis until we see a bump in creatinine. 06/05/2019-stable continue diuresis 06/06/2019-not in acute exacerbation to this time. Stable. Continue diuresis with Lasix 40 mg p.o. twice daily. 06/07/2019-not in acute exacerbation. Continues Lasix 40 mg p.o. twice daily 06/08/2019-not in acute exacerbation continue Lasix (4) Hyperkalemia Is this a current diagnosis for this admission?: Yes Plan: 06/03/2019-mild. Potassium 5.2. I suspect this will go down with diuresis recheck in the a.m. 06/04/2019-stable continue to follow 06/05/2019-stable -stable continue to follow 06/07/2019-stable 06/08/2019-stable (5) Hyperglycemia Is this a current diagnosis for this admission?: Yes Plan: 06/03/2019-carbohydrate controlled diet. A1c. Sliding scale insulin before meals and at bedtime I suspect this mostly from previous steroid use. 06/04/2019-continue to follow stable 06/05/2019-stable 06/06/2019-stable continue to follow 06/07/2019-stable 06/08/2019-stable - Time Time Spent with patient: 15-24 minutes - Inpatient Certification Based on my medical assessment, after consideration of the patient's comorbidities, presenting symptoms, or acuity I expect that the services needed warrant INPATIENT care.: Yes I certify that my determination is in accordance with my understanding of Medicare's requirements for reasonable and necessary INPATIENT services [42 CFR 412.3e].: Yes Medical Necessity: Significant Comorbidiites Make Outpatient Treatment Too R isky, Need Close Monitoring Due to Risk of Patient Decompensation
[2019-06-08] MEDS: POTASSIUM CHLORIDE 10 MEQ TABLET.ER PO SCH (09:51)
[2019-06-08] MEDS: APIXABAN 5 MG TABLET PO SCH (09:51)
[2019-06-08] MEDS: CALCITRIOL 0.25 MCG CAPSULE PO SCH (09:51)
[2019-06-08] MEDS: AZITHROMYCIN 250 MG TABLET PO SCH (09:51)
[2019-06-08] MEDS: OXYBUTYNIN CHLORIDE 5 MG TABLET PO SCH ×2 (09:52→21:19)
[2019-06-08] MEDS: GUAIFENESIN 600 MG TABLET.SA PO SCH ×2 (09:52→17:28)
[2019-06-08] MEDS: FUROSEMIDE 40 MG TABLET PO SCH ×2 (09:52→17:29)
[2019-06-08] MEDS: METOPROLOL TARTRATE 100 MG TABLET PO SCH ×2 (09:52→21:19)
[2019-06-08] MEDS: DULOXETINE HCL 20 MG CAPSULE.DR PO SCH (09:52)
[2019-06-08] MEDS: FLUTICASONE/VILANTEROL 200-25 MCG/DOSE IH SCH (09:52)
--- NOTE | 2019-06-08 10:25 | RADIOLOGY REPORT (SQ) ---
EXAM DESCRIPTION: CT CHEST WITH COMPLETED DATE/TIME: 06/08/2019 9:55 am REASON FOR STUDY: exudative seriology COMPARISON: Chest films 06/03/2019, 06/05/2019 CT chest 03/13/2011, 01/09/2011, 10/03/2009 TECHNIQUE: CT scan of the chest performed using helical scanning technique with dynamic intravenous contrast injection. Images reviewed with lung, soft tissue and bone windows. Reconstructed coronal and sagittal MPR and MIP images reviewed. All images stored on PACS. All CT scanners at this facility use dose modulation, iterative reconstruction, and/or weight based d osing when appropriate to reduce radiation dose to as low as reasonably achievable (ALARA). [facility]: Dose Right [facility]: CareDose [facility]: Dose Right [facility]: Teradose 4D [facility]: katena CONTRAST TYPE AND DOSE: contrast/concentration: Isovue 350.00 mg/ml; Total Contrast Delivered: 80.0 ml; Total Saline Delivered: 55.0 ml RENAL FUNCTION: Creatinine 1.0 RADIATION DOSE: CT Rad equipment meets quality standard of care and radiation dose reduction techniq ues were employed. CTDIvol: 4.0 mGy. DLP: 188 mGy-cm. . LIMITATIONS: None. FINDINGS: LUNGS AND PLEURA: There is a moderate freely layering right pleural effusion, re- accumula josesito since post thoracentesis film 06/05/2019. Bandlike atelectasis parallels the major fissure, with complete collapse of the right middle lobe. T here is right basilar consolidation above the hemidiaphragm atelectasis versus pneumonia. No right p neumothorax. Small left pleural effusion, minimal dependent atelectasis left posterior lung base. No left pneumot horax Lung apices are hyperinflated and hyperlucent from obstructive disease. HILAR AND MEDIASTINAL STRUCTURES: No identified masses or abnormal nodes. HEART AND VASCULAR STRUCTURES: Ectasia ascending aorta 3.8 cm in diameter. No thoracic aortic dissec tion. No central pulmonary emboli. Suspect at least 50% stenosis of the left subclavian artery at t he level of the vertebral artery origin. Correlate clinically for subclavian steal. Calcified coron savita arteries and aortic valve. Mild cardiomegaly HARDWARE: None in the chest. UPPER ABDOMEN: No significant findings. Limited exam. 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 IMPRESSION: Re-accumulation of a moderate right and small left pleural effusion. Right middle lobe collapse/ consolidation Bibasilar atelectasis TECHNICAL DOCUMENTATION: JOB ID: [id number] Quality ID # [id number]: Final reports with documentation of one or more dose reduction techniques (e.g., Au tomated exposure control, adjustment of the mA and/or kV according to patient size, use of iterative reconstruction technique) 2010 [email or web address]- All Rights Reserved Reading location - IP/workstation name: [email or web address]
[2019-06-08] MEDS ORDERED: MEDROL DOSEPAK (DAY 1 LUNCH & SUPPER) (EDIT AFTER 0800) PO SCH (13:00)
--- NOTE | 2019-06-08 17:33 | PDOC CONSULTATION ---
Consultation Consult Date: 06/08/19 Provider Consulted: AMBER VALLEJO Consult reason:: Hematology/Oncology consultation was requested for patient with recurrent pleural effusion and concerns for lung cancer. History of Present Illness Admission Date/PCP: 06/03/19 15:50 CARMELA RESENDIZ History of Present Illness: CINTHYA DANIELLE is a 83 year old female who is a poor historian. She states that "time is difficult for me." She states that she has seen her PCP Aditi Helms recently who listened to her lungs, sent her for an X-ray and then she wound up in the hospital. She has been having increasing dyspnea, but otherwise, cannot tell me why she is here. She has arthritis pain and she hurt her shoulder. But she doesn't know when. She also reports 1 episode of hemoptysis. Today, she states that her breathing is better, but she is afraid she may have cancer and is worried about this. Past Medical History Cardiac Medical History: Reports: Atrial Fibrillation, Congestive Heart Failure, Coronary Artery Disease - Has had a couple of stents placed in her arteries., Myocardial Infarction - 10/2014, Hyperlipidema, Hypertension Denies: DVT, Pulmonary Embolism Pulmonary Medical History: Reports: Asthma, Chronic Obstructive Pulmonary Disease (COPD), Pneumonia EENT Medical History: Reports: None Neurological Medical History: Denies: Seizures Endocrine Medical History: Denies: Diabetes Mellitus Type 1, Diabetes Mellitus Type 2, Hyperthyroidism, Hypothyroidism Malignancy Medical History: Reports: Skin Cancer GI Medical History: Reports: Crohn's Disease, Gastroesophageal Reflux Disease, Hiatal Hernia, Ulcerative Colitis Denies: Cirrhosis, Hepatitis Musculoskeltal Medical History: Reports: Arthritis Denies: Gout Skin Medical History: Denies: Eczema, Psoriasis Psychiatric Medical History: Reports: Depression Traumatic Medical History: Reports: None Hematology: Reports: Anemia - Chronic Denies: Bleeding Tendencies Infectious Medical History: Reports: None Past Surgical History Past Surgical History: Reports: Cardiac Catheterization - with stents, Coronary Stent - x2, Other - Skin cancer surgery Social History Lives with: Family Smoking Status: Former Smoker Electronic Cigarette use?: No Frequency of Alcohol Use: None Hx Recreational Drug Use: No Drugs: None Hx Prescription Drug Abuse: No Past Social History Note: She states that she lives with someone. She has 2 boys, 3 grandchildren, 2 great grandchildren and 1 cat. - Advance Directive Resuscitation Status: Full Code Family History Family History: CAD - Father, COPD - Brother, CVA - Mother, DM, Hypertension, Malignancy - 1 sister colon cancer and another sister lung cancer Parental Family History Reviewed: Yes - Mom CVA. Father [place] Children Family History Reviewed: Yes Sibling(s) Family History Reviewed.: Yes - 3 sisters, 1 with colon cancer Medication/Allergy Home Medications: Albuterol Sulfate [Proair Hfa Inhalation Aerosol 8.5 gm Mdi] 400 puff IH Q6HP PRN 06/03/19 Apixaban [Eliquis 5 mg Tablet] 5 mg PO BID 06/03/19 Atorvastatin Calcium [Lipitor 20 mg Tablet] 20 mg PO QHS 06/03/19 Calcitriol [Rocaltrol] 0.25 mcg PO MOWEFR@1000 06/03/19 Duloxetine HCl [Cymbalta 20 Mg Capsule.Dr] 20 mg PO DAILY 06/03/19 Fluticasone/Vilanterol [Breo 200-25 Mcg Ellipta 14 Dose/Dpi] 1 inh IH DAILY 06/03/19 Furosemide [Lasix 20 mg Tablet] 20 mg PO BID 06/03/19 Methylprednisolone [Medrol Dosepack (4 mg/Tab) 21 Tab/Dosepak] 4 mg PO ASDIR PRN 06/03/19 Metoprolol Tartrate [Lopressor 50 mg Tablet] 50 mg PO BID 06/03/19 Oxybutynin Chloride [Ditropan Xl] 10 mg PO DAILY 06/03/19 Potassium Chloride 20 meq PO DAILY 06/03/19 Allergies/Adverse Reactions: prednisone [Prednisone] Allergy (Unknown, Verified 04/10/19 17:23) cephalexin [Cephalexin] Allergy (Verified 05/08/19 07:45) ciprofloxacin [From Cipro] Allergy (Verified 04/10/19 17:23) cortisone [Cortisone] Allergy (Verified 04/10/19 17:23) Penicillins Allergy (Verified 04/10/19 17:23) phenazopyridine [Phenazopyridine] Allergy (Verified 04/10/19 17:23) Sulfa (Sulfonamide Antibiotics) Allergy (Verified 04/10/19 17:23) sulfamethoxazole [From Bactrim] Allergy (Verified 04/10/19 17:23) tramadol HCl [From Ultram] Allergy (Verified 04/10/19 17:23) trimethoprim [From Bactrim] Allergy (Verified 04/10/19 17:23) Review of Systems Constitutional: PRESENT: weakness. ABSENT: fever(s), headache(s) Eyes: ABSENT: visual disturbances Ears: ABSENT: hearing changes Nose, Mouth, and Throat: ABSENT: headache(s) Cardiovascular: PRESENT: dyspnea on exertion. ABSENT: chest pain Respiratory: PRESENT: dyspnea, hemoptysis Gastrointestinal: ABSENT: constipation Genitourinary: ABSENT: dysuria Musculoskeletal: PRESENT: muscle weakness, other - arthritis Neurological: PRESENT: weakness Hematologic/Lymphatic: ABSENT: easy bleeding Physical Exam Vital Signs: Temp Pulse Resp BP Pulse Ox 97.6 F 78 17 135/64 H 100 06/08/19 15:10 06/08/19 15:10 06/08/19 15:10 06/08/19 15:10 06/08/19 15:10 Intake & Output 06/07/19 06/08/19 06/09/19 06:59 06:59 06:59 Intake Total 628 662 650 Output Total 700 Balance -72 662 650 Weight 61.1 kg 61 kg General appearance: PRESENT: no acute distress, well-developed, well-nourished Head exam: PRESENT: normocephalic Eye exam: PRESENT: EOMI Mouth exam: PRESENT: tongue midline Neck exam: ABSENT: lymphadenopathy, tenderness Respiratory exam: PRESENT: decreased breath sounds Cardiovascular exam: PRESENT: RRR GI/Abdominal exam: PRESENT: soft. ABSENT: tenderness Extremities exam: ABSENT: pedal edema Musculoskeletal exam: PRESENT: ambulatory Neurological exam: PRESENT: alert, awake. ABSENT: oriented to time Skin exam: PRESENT: normal color Results Laboratory Results: 06/08/19 03:49 06/08/19 03:49 06/08/19 06/08/19 03:49 03:49 WBC 5.0 RBC 3.22 L Hgb 8.5 L Hct 26.4 L MCV 82 MCH 26.3 L MCHC 32.1 RDW 21.1 H Plt Count 189 Sodium 139.2 Potassium 4.0 Chloride 95 L Carbon Dioxide 41 H* Anion Gap 3 L BUN 33 H Creatinine 0.99 Est GFR ( Amer) > 60 Glucose 82 Calcium 8.5 06/03/19 13:16 Blood Blood Culture - Final NO GROWTH IN 5 DAYS 06/03/19 06/04/19 13:16 16:31 Troponin I 0.017 NT-Pro-B Natriuret Pep 25428 H Impressions: Thoracentesis Ultrasound 06/05/19 08:00 IMPRESSION: SUCCESSFUL THORACENTESIS USING ULTRASOUND GUIDANCE. Chest X-Ray 06/05/19 16:10 IMPRESSION: 1. Status post right thoracentesis. No evidence of pneumothorax. 2. Small right pleural effusion appears slightly larger. Mild airspace disease in the right lower lung, new finding may represent atelectasis. 3. Stable small left pleural effusion and basilar atelectasis. Chest CT 06/08/19 00:00 IMPRESSION: Re-accumulation of a moderate right and small left pleural effusion. Right middle lobe collapse/ consolidation Bibasilar atelectasis Assessment & Plan - Diagnosis (1) CHF (congestive heart failure) Qualifiers: Heart failure type: unspecified Heart failure chronicity: acute on chronic Qualified Code(s): I50.9 - Heart failure, unspecified Plan: This may be the primary cause of her recurrent effusion. (2) COPD (chronic obstructive pulmonary disease) Qualifiers: COPD type: unspecified COPD Qualified Code(s): J44.9 - Chronic obstructive pulmonary disease, unspecified Is this a current diagnosis for this admission?: Yes Plan: Breathing improved per patient (3) Recurrent pleural effusion on right Is this a current diagnosis for this admission?: Yes Plan: Await cytology report. We discussed the fact that this could be cancer, but will await path. CT without evidence of mass or lymphadenopathy. - Plan Summary Plan Summary: Patient was discussed with Bo Cruz. Will continue to follow her and await cytology. Please call me if needed.
[2019-06-08] MEDS: OXYCODONE-ACETAMINOPHEN 5-325 MG TABLET PO PRN (21:19)
[2019-06-08] MEDS: ATORVASTATIN CALCIUM 20 MG TABLET PO SCH (21:19)
[2019-06-08] MEDS ORDERED: MEDROL DOSEPAK (DAY 1 BEDTIME DOSE) (EDIT AFTER 0800) PO SCH (22:00)
[2019-06-09] MEDS ORDERED: MEDROL DOSEPAK (DAY 2 BRKFST, LUNCH, SUPPER) PO SCH (08:00)
--- NOTE | 2019-06-09 08:33 | PDOC PROGRESS REPORT ---
Subjective Progress Note for:: 06/09/19 Subjective:: Patient states that she is feeling about the same. She is frustrated that she does not know the plan. Not sure if they will do another thoracentesis or not. She has not been allowed to eat or drink much. She is hungry. Reason For Visit: ACUTE ON CHRONIC HYPOXIC RESPIRATORY FAILURE Physical Exam Vital Signs: Temp Pulse Resp BP Pulse Ox 97.6 F 100 14 134/74 H 93 06/09/19 03:18 06/09/19 07:00 06/09/19 03:18 06/09/19 03:18 06/09/19 04:36 Intake & Output 06/08/19 06/09/19 06/10/19 06:59 06:59 06:59 Intake Total 662 750 Balance 662 750 Weight 61 kg 61 kg General appearance: PRESENT: no acute distress, well-developed, well-nourished Head exam: PRESENT: normocephalic Eye exam: PRESENT: EOMI Respiratory exam: PRESENT: unlabored GI/Abdominal exam: ABSENT: ascites Extremities exam: ABSENT: pedal edema Neurological exam: PRESENT: alert, awake Psychiatric exam: PRESENT: appropriate affect Skin exam: PRESENT: normal color Results Laboratory Results: 06/08/19 03:49 06/08/19 03:49 06/03/19 18:24 Blood Blood Culture - Final NO GROWTH IN 5 DAYS 06/03/19 13:16 Blood Blood Culture - Final NO GROWTH IN 5 DAYS 06/03/19 06/04/19 13:16 16:31 Troponin I 0.017 NT-Pro-B Natriuret Pep 58720 H Impressions: Thoracentesis Ultrasound 06/05/19 08:00 IMPRESSION: SUCCESSFUL THORACENTESIS USING ULTRASOUND GUIDANCE. Chest X-Ray 06/05/19 16:10 IMPRESSION: 1. Status post right thoracentesis. No evidence of pneumothorax. 2. Small right pleural effusion appears slightly larger. Mild airspace disease in the right lower lung, new finding may represent atelectasis. 3. Stable small left pleural effusion and basilar atelectasis. Chest CT 06/08/19 00:00 IMPRESSION: Re-accumulation of a moderate right and small left pleural effusion. Right middle lobe collapse/ consolidation Bibasilar atelectasis Assessment & Plan - Diagnosis (1) CHF (congestive heart failure) Qualifiers: Heart failure type: unspecified Heart failure chronicity: acute on chronic Qualified Code(s): I50.9 - Heart failure, unspecified Is this a current diagnosis for this admission?: Yes (2) COPD (chronic obstructive pulmonary disease) Qualifiers: COPD type: unspecified COPD Qualified Code(s): J44.9 - Chronic obstructive pulmonary disease, unspecified Is this a current diagnosis for this admission?: Yes (3) Recurrent pleural effusion on right Is this a current diagnosis for this admission?: Yes - Time Time Spent with patient: Less than 15 minutes - Plan Summary Plan Summary: Currently no evidence of cancer. Await cytology from pleural effusion, but I suspect this is more cardiac related. I will continue to follow with you. Her chronic anemia remains stable. No indication for blood transfusion at this time.
[2019-06-09] MEDS: AZITHROMYCIN 250 MG TABLET PO SCH (09:48)
[2019-06-09] MEDS: GUAIFENESIN 600 MG TABLET.SA PO SCH ×2 (09:48→17:18)
[2019-06-09] MEDS: DULOXETINE HCL 20 MG CAPSULE.DR PO SCH (09:48)
[2019-06-09] MEDS: FLUTICASONE/VILANTEROL 200-25 MCG/DOSE IH SCH (09:48)
[2019-06-09] MEDS: FUROSEMIDE 40 MG TABLET PO SCH ×2 (09:49→17:18)
[2019-06-09] MEDS: METOPROLOL TARTRATE 100 MG TABLET PO SCH ×2 (09:49→21:17)
[2019-06-09] MEDS: POTASSIUM CHLORIDE 10 MEQ TABLET.ER PO SCH (09:49)
[2019-06-09] MEDS: OXYBUTYNIN CHLORIDE 5 MG TABLET PO SCH ×2 (09:49→21:17)
--- NOTE | 2019-06-09 13:00 | RADIOLOGY REPORT (SQ) ---
EXAM DESCRIPTION: CHEST SINGLE VIEW COMPLETED DATE/TIME: 06/09/2019 12:48 pm REASON FOR STUDY: hypoxia, dyspnea, pleural effusion COMPARISON: 06/05/2019 EXAM PARAMETERS: NUMBER OF VIEWS: One view. TECHNIQUE: Single frontal radiographic view of the chest acquired. RADIATION DOSE: NA LIMITATIONS: None. FINDINGS: LUNGS AND PLEURA: Increasing right basilar airspace disease. Persistent small pleural eff usions right greater than left. No pneumothorax. MEDIASTINUM AND HILAR STRUCTURES: No masses. Contour normal. HEART AND VASCULAR STRUCTURES: Stable in appearance. BONES: No acute findings. HARDWARE: None in the chest. OTHER: No other significant finding. IMPRESSION: Persistent basilar infiltrates and pleural effusions right greater than left. Findings have progressed when compared to prior study. TECHNICAL DOCUMENTATION: JOB ID: [id number] [employer]- All Rights Reserved Reading location - IP/workstation name: [email or web address]
[2019-06-09 15:18] LABS: ARTERIAL BLOOD BASE EXCESS 14.5 mmol/L; ARTERIAL BLOOD H2CO3 1.72 mmol/L (1.05-1.35); ARTERIAL BLOOD HCO3 40.2 mmol/L (20-24); ARTERIAL BLOOD O2 SATURATION 94.7 % (94-98); ARTERIAL BLOOD PCO2 57.2 mmHg (35-45); ARTERIAL BLOOD PH 7.47 (7.35-7.45); ARTERIAL BLOOD PO2 70.9 mmHg (80-100)
[2019-06-09 15:26] LABS: ARTERIAL BLOOD FIO2 3L
[2019-06-09] MEDS ORDERED: ALBUTEROL SULFATE 0.042% NEB (1.25 MG/3 ML) AMPUL NEB PRN (17:51)
--- NOTE | 2019-06-09 18:18 | PDOC PROGRESS REPORT ---
Subjective Progress Note for:: 06/09/19 Subjective:: The patient is an 83-year-old female with a past medical history of CHF, COPD, A. fib, hypertension, hyperlipidemia, Crohn's disease, GERD, ulcerative colitis, arthritis, depression, and tobacco dependence who was admitted 06/03/2019 for acute respiratory failure with hypoxia. Patient was seen on morning rounds. She was found lying in bed, comfortably, on supplemental oxygen by nasal cannula at 3 L/min. She is not home O2 dependent. The patient is A&O x4, however, I have difficulty understanding much of her remaining conversation. The nurse today reports that she is also having difficulty understanding the patient, however, additional staff members who have worked with the patient over the previous 2 days state that this is unchanged from her baseline speech pattern. It is known that she lives at home with her grandson, is independently ambulatory, and does not typically require oxygen support. The patient is able to deny fever, clearly deny fever, chest pain, abdominal pain, nausea and vomiting. ROS is otherwise limited. She does appear to be comfortable and is not noted to be in any acute distress at this time. Reason For Visit: ACUTE ON CHRONIC HYPOXIC RESPIRATORY FAILURE Physical Exam Vital Signs: Temp Pulse Resp BP Pulse Ox 97.6 F 103 H 14 134/74 H 93 06/09/19 03:18 06/09/19 14:00 06/09/19 03:18 06/09/19 03:18 06/09/19 04:36 Intake & Output 06/08/19 06/09/19 06/10/19 06:59 06:59 06:59 Intake Total 662 750 Balance 662 750 Weight 61 kg 61 kg General appearance: PRESENT: no acute distress, cooperative, thin, well- developed, well-nourished Head exam: PRESENT: atraumatic, normocephalic Eye exam: PRESENT: conjunctiva pink, EOMI, PERRLA. ABSENT: scleral icterus Ear exam: PRESENT: normal external ear exam Mouth exam: PRESENT: moist, tongue midline Respiratory exam: PRESENT: clear to auscultation emma, decreased breath sounds - bibasilar; R>L, symmetrical, unlabored, other - Supplemental oxygen via nasal cannula. ABSENT: rales, rhonchi, wheezes Cardiovascular exam: PRESENT: RRR, +S1, +S2. ABSENT: diastolic murmur, rubs, systolic murmur Pulses: PRESENT: normal dorsalis pedis pul Vascular exam: PRESENT: normal capillary refill GI/Abdominal exam: PRESENT: normal bowel sounds, soft. ABSENT: distended, guarding, mass, organolmegaly, rebound, tenderness Rectal exam: PRESENT: deferred Extremities exam: PRESENT: full ROM. ABSENT: calf tenderness, clubbing, pedal edema Neurological exam: PRESENT: alert, awake, oriented to person, oriented to place, oriented to time, oriented to situation, CN II-XII grossly intact. ABSENT: motor sensory deficit Psychiatric exam: PRESENT: appropriate affect, normal mood. ABSENT: homicidal ideation, suicidal ideation Skin exam: PRESENT: dry, intact, warm. ABSENT: cyanosis, rash Results Laboratory Results: 06/08/19 03:49 06/08/19 03:49 06/09/19 15:04 Carbonic Acid 1.72 H HCO3/H2CO3 Ratio 23:1 ABG pH 7.47 H ABG pCO2 57.2 H ABG pO2 70.9 L ABG HCO3 40.2 H ABG O2 Saturation 94.7 ABG Base Excess 14.5 FiO2 3L 06/05/19 14:00 Pleural Fluid - Right Pleural Effusion Gram Stain - Final 06/05/19 14:00 Pleural Fluid - Right Pleural Effusion Body Fluid Culture - Final NO AEROBIC OR ANAEROBIC ORGANISMS RECOVERED 06/03/19 18:24 Blood Blood Culture - Final NO GROWTH IN 5 DAYS 06/03/19 13:16 Blood Blood Culture - Final NO GROWTH IN 5 DAYS 06/03/19 06/04/19 13:16 16:31 Troponin I 0.017 NT-Pro-B Natriuret Pep 00569 H Impressions: Thoracentesis Ultrasound 06/05/19 08:00 IMPRESSION: SUCCESSFUL THORACENTESIS USING ULTRASOUND GUIDANCE. Chest CT 06/08/19 00:00 IMPRESSION: Re-accumulation of a moderate right and small left pleural effusion. Right middle lobe collapse/ consolidation Bibasilar atelectasis Chest X-Ray 06/09/19 00:00 IMPRESSION: Persistent basilar infiltrates and pleural effusions right greater than left. Findings have progressed when compared to prior study. Assessment and Plan - Diagnosis (1) Acute respiratory failure with hypoxia and hypercapnia Is this a current diagnosis for this admission?: Yes Plan: Chest x-ray demonstrates persistent right-sided pleural effusion. ABG shows metabolic alkalosis with hypercapnia and hypoxia. Scheduled for repeat thoracentesis tomorrow. Continue supplemental oxygen and BiPAP support. Start scheduled and as needed nebulizer treatments. Mucinex twice daily. Encourage BiPAP; pulmonary toilet when off BiPAP. (2) Acute on chronic diastolic (congestive) heart failure Is this a current diagnosis for this admission?: Yes Plan: Stable and not in exacerbation at this time. Echocardiogram 318 demonstrated normal LVEF. Weight is overall stable; actually down 4 kg. Continue metoprolol and furosemide. Will start low-dose lisinopril. Continue home dose Eliquis and statin therapy. (3) Recurrent pleural effusion on right Is this a current diagnosis for this admission?: Yes Plan: Thoracentesis 06/05/2019 revealed transudative fluid. Repeat thoracentesis scheduled for tomorrow; will be evaluated for Pleurx drain. Hematology/oncology is consulted; awaiting cytology reports. (4) Anemia Qualifiers: Anemia type: unspecified type Qualified Code(s): D64.9 - Anemia, unspecified Is this a current diagnosis for this admission?: Yes Plan: Stable; hemoglobin has trended down slightly from 9.6-8.5 but has remained unchanged since June 04. No signs of active bleeding at this time. We will obtain anemia panel with a.m. lab work. Start multivitamin with iron supplementation. (5) Hyperglycemia Is this a current diagnosis for this admission?: Yes Plan: A1c 5.7%. Hyperglycemia likely secondary to steroid use and acute illness. No further evaluation/management required. (6) Hyperkalemia Is this a current diagnosis for this admission?: Yes Plan: Resolved; will monitor with daily chemistries. - Time Time Spent with patient: 25-34 minutes Medications reviewed and adjusted accordingly: Yes Anticipated discharge: Home with Homehealth Within: within 72 hours
[2019-06-09] MEDS: IPRATROPIUM/ALBUTEROL 0.5-2.5 MG/3 ML AMPUL NEB SCH (20:04)
[2019-06-09] MEDS: ACETAMINOPHEN 325 MG TABLET PO PRN (20:20)
[2019-06-09] MEDS: ATORVASTATIN CALCIUM 20 MG TABLET PO SCH (21:17)
[2019-06-09] MEDS ORDERED: MEDROL DOSEPAK (DAY 2 HS) PO SCH (22:00)
[2019-06-10] MEDS: ACETAMINOPHEN 325 MG TABLET PO PRN ×2 (00:20→21:34)
[2019-06-10 06:22] LABS: ABSOLUTE RETICS # 0.045 10^6/uL (0.028-0.122); HEMATOCRIT 27.9 % (36.0-47.0); HEMOGLOBIN 8.9 g/dL (12.0-15.5); MEAN CORPUSCULAR HEMOGLOBIN 26.4 pg (27.0-33.4); MEAN CORPUSCULAR VOLUME 83 fl (80-97); PLATELET COUNT 207 10^3/uL (150-450); RED BLOOD COUNT 3.37 10^6/uL (3.72-5.28); RED CELL DISTRIBUTION WIDTH 21.3 % (11.5-14.0); RETICULOCYTE COUNT (AUTO) 1.35 % (0.66-2.85); WHITE BLOOD COUNT 5.6 10^3/uL (4.0-10.5)
[2019-06-10 06:42] LABS: BLOOD UREA NITROGEN 26 mg/dL (7-20); CALCIUM 8.7 mg/dL (8.4-10.2); CHLORIDE 96 mmol/L (98-107); GLUCOSE 94 mg/dL (75-110); IRON(TIBC) 32.6 ug/dL (37-170); POTASSIUM 4.2 mmol/L (3.6-5.0)
[2019-06-10] MEDS ORDERED: MEDROL DOSEPAK (DAY 3) PO SCH (08:00)
[2019-06-10 08:06] LABS: CARBON DIOXIDE 44 mmol/L (22-30)
[2019-06-10] MEDS: OXYCODONE-ACETAMINOPHEN 5-325 MG TABLET PO PRN ×2 (08:14→15:07)
[2019-06-10 08:25] LABS: ANION GAP 2 (5-19)
[2019-06-10] MEDS: IPRATROPIUM/ALBUTEROL 0.5-2.5 MG/3 ML AMPUL NEB SCH ×2 (08:58→20:09)
[2019-06-10] MEDS ORDERED: MIDAZOLAM 2 MG/2 ML INJ ONE (10:31)
[2019-06-10] MEDS ORDERED: FENTANYL CITRATE INJ/PF 100 MCG/2 ML AMPUL ONE (10:32)
[2019-06-10] MEDS: ONDANSETRON HCL INJ/PF 4 MG/2 ML SDV IV PRN (12:06)
[2019-06-10] MEDS: FLUTICASONE/VILANTEROL 200-25 MCG/DOSE IH SCH (15:07)
[2019-06-10] MEDS: DULOXETINE HCL 20 MG CAPSULE.DR PO SCH (15:17)
[2019-06-10] MEDS: POTASSIUM CHLORIDE 10 MEQ TABLET.ER PO SCH (15:18)
[2019-06-10] MEDS: OXYBUTYNIN CHLORIDE 5 MG TABLET PO SCH ×2 (15:18→21:34)
[2019-06-10] MEDS: FUROSEMIDE 40 MG TABLET PO SCH ×2 (15:18→20:05)
[2019-06-10] MEDS: MULTIVITAMINS W-IRON TABLET, CHEWABLE PO SCH (15:18)
[2019-06-10] MEDS: METOPROLOL TARTRATE 100 MG TABLET PO SCH ×2 (15:20→21:34)
[2019-06-10] MEDS: LISINOPRIL 5 MG TABLET PO SCH (15:20)
[2019-06-10] MEDS: GUAIFENESIN 600 MG TABLET.SA PO SCH (15:20)
[2019-06-10] MEDS: AZITHROMYCIN 250 MG TABLET PO SCH (15:21)
[2019-06-10] MEDS: CALCITRIOL 0.25 MCG CAPSULE PO SCH (15:21)
[2019-06-10 16:24] LABS: HEMATOCRIT 29.1 % (36.0-47.0); HEMOGLOBIN 9.4 g/dL (12.0-15.5); MEAN CORPUSCULAR HEMOGLOBIN 26.4 pg (27.0-33.4); MEAN CORPUSCULAR HGB CONC 32.2 g/dL (32.0-36.0); MEAN CORPUSCULAR VOLUME 82 fl (80-97); PLATELET COUNT 223 10^3/uL (150-450); RED BLOOD COUNT 3.55 10^6/uL (3.72-5.28); RED CELL DISTRIBUTION WIDTH 21.3 % (11.5-14.0); WHITE BLOOD COUNT 7.6 10^3/uL (4.0-10.5)
--- NOTE | 2019-06-10 16:55 | RADIOLOGY REPORT (SQ) ---
EXAM DESCRIPTION: CT THORACENTESIS W/CHEST TUBE COMPLETED DATE/TIME: 06/10/2019 11:31 am REASON FOR STUDY: pleural effusion COMPARISON: CT of the chest with contrast from 06/08/2019. FLUORO TIME: 2.1 seconds. LIMITATIONS: None. PROCEDURE: The procedure, risks, benefits, and alternatives were discussed with the patient in the p reprocedural area, and all questions were answered. Informed consent was obtained verbally and in wri ting. The patient was then brought to the CT suite, positioned supine on the CT gurney, and a time-out was performed. After that, axial images of the chest were obtained for targeting of the fluid-filled rig ht pleural space. Based on review of the axial images an appropriate access site was selected on the skin. The area around selected access site was then prepped and draped with 2% chlorhexidine utilizing shayla dard sterile technique. After that, the access site was infiltrated with 1% lidocaine and an incisio n was made perpendicular to the skin surface with a #11 blade. An 18 gauge access needle was then adv anced through the skin incision and into the fluid-filled right pleural space utilizing CT fluoroscop ic guidance. Next the needle was exchanged over a 0.038 inch guidewire for a 10 [place] dilator, which was used to dilate the percutaneous track. The dilator was then removed and a 10 [place] all-purpose drainage catheter was advanced over the guidewire into the fluid-filled right pleural space. After th at, the guidewire and inner dilator of the catheter were removed and the catheter was formed within t he fluid-filled right pleural space. Proper position of catheter was then confirmed with repeat axial images of the chest; these images were reviewed and confirmed proper position of the catheter. After that, the catheter was locked in position, secured in place with a StayFix device and attached attac hed to a drainage bag. The patient tolerated the procedure well with local anesthesia. 75 mcg of fentanyl were administered intravenously. Documentation of iijq-co-iuic time the proceduralist spent monitoring the patient: 25 minutes. IMPRESSION: Successful CT-guided placement of a 10 [place] all-purpose drainage catheter into the rig ht pleural space. Of note, a portion of the aspirated fluid was collected for analysis. COMMENT: Patient medication list reviewed:Yes- Quality ID# 130:Eligible professional attests to docu menting in the medical record they obtained, updated, or reviewed the patient's current medications. Quality ID #76: The patient was prepped and draped using maximum sterile barrier technique including cap, mask, sterile gown, sterile gloves, a large sterile sheet, hand hygiene, and 2% Chlorhexidine fo r cutaneous antisepsis. When ultrasound is used, sterile ultrasound techniques are followed requiring sterile gel and sterile probes. Quality ID 145: Final reports for procedures using fluoroscopy that document radiation exposure chip diego, or exposure time and number of fluorographic images (if radiation exposure indices are not avail able) Quality ID# 436: Final reports with documentation of one or more dose reduction techniques (e.g., Aut omated exposure control, adjustment of the mA and/or kV according to patient size, use of iterative r econstruction technique) TECHNICAL DOCUMENTATION: JOB ID: [id number] [employer] (acquired by [employer] in 2014)- All Rights Reserved rev-10/23 Reading location - IP/workstation name: [email or web address]
--- NOTE | 2019-06-10 18:55 | PDOC PROGRESS REPORT ---
Subjective Progress Note for:: 06/10/19 Subjective:: The patient is an 83-year-old female with a past medical history of CHF, COPD, A. fib, hypertension, hyperlipidemia, Crohn's disease, GERD, ulcerative colitis, arthritis, depression, and tobacco dependence who was admitted 06/03/2019 for acute respiratory failure with hypoxia. Patient was seen on morning rounds with family members present. She was found lying in bed, comfortably, on supplemental oxygen by nasal cannula at 3 L/min. She is home O2 dependent. The patient is A&O x4; clear speach today. The patient tells me that she would like to have the thoracentesis done again today, " one last time to see if that will help." She is vague about her current CODE STATUS and goals of care; ultimately defers to her son who adamantly insists that the patient remain a full cold with aggressive interventions. He would like to have the patient referred to a cardiothoracic surgeon to discuss possible pleurodesis or VATS procedure. I expected her pleural effusion to be recurrent related to heart failure and suggested that the patient and family began having honest conversations regarding end-of-life decision/goals of care. The family members are also interested in meeting with physical therapy and discharge planning to discuss potential short-term rehab. They were advised that I did not feel that the patient would benefit from short-term rehab. Strongly recommend that she consider going home with home health and physical therapy services. She denies fever, chills, chest pain, palpitations, abdominal pain, nausea vomit ing and diarrhea. She does confirm dyspnea at rest and frequent nonproductive cough. She does appear to be fatigued but is not noted to be in any acute distress at this time. Patient family have no other questions or concerns at this time. No concerns per nursing. Reason For Visit: ACUTE ON CHRONIC HYPOXIC RESPIRATORY FAILURE Physical Exam Vital Signs: Temp Pulse Resp BP Pulse Ox 98.1 F 120 H 15 102/53 L 96 06/10/19 15:37 06/10/19 15:37 06/10/19 15:37 06/10/19 15:37 06/10/19 15:37 Intake & Output 06/09/19 06/10/19 06/11/19 06:59 06:59 06:59 Intake Total 750 770 0 Balance 750 770 0 Weight 61 kg 58.5 kg General appearance: PRESENT: no acute distress, cooperative, thin, well- developed, well-nourished Head exam: PRESENT: atraumatic, normocephalic Eye exam: PRESENT: conjunctiva pink, EOMI, PERRLA. ABSENT: scleral icterus Ear exam: PRESENT: normal external ear exam Mouth exam: PRESENT: moist, tongue midline Respiratory exam: PRESENT: clear to auscultation emma, decreased breath sounds - Bibasilar; R>L, symmetrical, tachypnea, other. ABSENT: rales, rhonchi, wheezes Cardiovascular exam: PRESENT: RRR, +S1, +S2. ABSENT: diastolic murmur, rubs, systolic murmur Pulses: PRESENT: normal dorsalis pedis pul Vascular exam: PRESENT: normal capillary refill Rectal exam: PRESENT: deferred Extremities exam: PRESENT: full ROM. ABSENT: calf tenderness, clubbing, pedal edema Neurological exam: PRESENT: alert, awake, oriented to person, oriented to place, oriented to time, oriented to situation, CN II-XII grossly intact. ABSENT: motor sensory deficit Psychiatric exam: PRESENT: appropriate affect, normal mood. ABSENT: homicidal ideation, suicidal ideation Skin exam: PRESENT: dry, intact, warm. ABSENT: cyanosis, rash Results Laboratory Results: 06/10/19 16:01 06/10/19 05:45 06/10/19 06/10/19 06/10/19 05:45 05:45 16:01 WBC 5.6 7.6 RBC 3.37 L 3.55 L Hgb 8.9 L 9.4 L Hct 27.9 L 29.1 L MCV 83 82 MCH 26.4 L 26.4 L MCHC 32.0 32.2 RDW 21.3 H 21.3 H Plt Count 207 223 Retic Count (auto) 1.35 Sodium 142.2 Potassium 4.2 Chloride 96 L Carbon Dioxide 44 H* Anion Gap 2 L BUN 26 H Creatinine 0.91 Est GFR ( Amer) > 60 Glucose 94 Calcium 8.7 Iron 32.6 L TIBC 324 % Saturation 10 Ferritin 26.80 Vitamin B12 758.0 Folate 12.60 06/03/19 06/04/19 13:16 16:31 Troponin I 0.017 NT-Pro-B Natriuret Pep [id number] H Impressions: Thoracentesis Ultrasound 06/05/19 08:00 IMPRESSION: SUCCESSFUL THORACENTESIS USING ULTRASOUND GUIDANCE. Chest CT 06/08/19 00:00 IMPRESSION: Re-accumulation of a moderate right and small left pleural effusion. Right middle lobe collapse/ consolidation Bibasilar atelectasis Chest X-Ray 06/09/19 00:00 IMPRESSION: Persistent basilar infiltrates and pleural effusions right greater than left. Findings have progressed when compared to prior study. Thoracentesis 06/10/19 08:30 IMPRESSION: Successful CT-guided placement of a 10 [place] all-purpose drainage catheter into the right pleural space. Of note, a portion of the aspirated fluid was collected for analysis. Assessment and Plan - Diagnosis (1) Acute respiratory failure with hypoxia and hypercapnia Is this a current diagnosis for this admission?: Yes Plan: Chest x-ray demonstrates persistent right-sided pleural effusion. ABG shows metabolic alkalosis with hypercapnia and hypoxia. Scheduled for repeat thoracentesis this afternoon; discussed with radiology likely need for Pleurx catheter placement due to recurrent effusion. Continue supplemental oxygen and BiPAP support. Continue scheduled and as needed nebulizer treatments. Mucinex twice daily. Encourage BiPAP; pulmonary toilet when off BiPAP. Patient would benefit from pulmonology and cardiology consultation. Also advised the patient and family that I felt that her frequent emergency department visits, readmissions, and recurrent acute respiratory failure indicated that she was likely approaching end-stage disease and that fartun discussion regarding goals of care should be had. The patient's family member adamantly declined having that discussion with me present at this time. (2) Acute on chronic diastolic (congestive) heart failure Is this a current diagnosis for this admission?: Yes (3) Recurrent pleural effusion on right Is this a current diagnosis for this admission?: Yes Plan: Thoracentesis 06/05/2019 revealed transudative fluid. Repeat thoracentesis scheduled for today; discussed with radiology, they will evaluate her for Pleurx drain placement. Echocardiogram pending. Hematology/oncology is consulted; awaiting cytology reports. The patient's son is interested in cardiothoracic surgical referral for evaluation for VATS procedure. I advised that I did not feel that she would be a candidate for surgical intervention. However, we will provide referral for outpatient follow-up following discharge. (4) Anemia Qualifiers: Anemia type: unspecified type Qualified Code(s): D64.9 - Anemia, unspecified Is this a current diagnosis for this admission?: Yes Plan: Stable; hemoglobin has trended down slightly from 9.6-8.5 but has remained unchanged since June 04. No signs of active bleeding at this time. Anemia panel reveals mild iron deficiency. Continue multivitamin with iron supplementation. (5) Hyperglycemia Is this a current diagnosis for this admission?: Yes Plan: A1c 5.7%. Hyperglycemia likely secondary to steroid use and acute illness. No further evaluation/management required. (6) Hyperkalemia Is this a current diagnosis for this admission?: Yes Plan: Resolved; will monitor with daily chemistries. (7) COPD (chronic obstructive pulmonary disease) Qualifiers: COPD type: unspecified COPD Qualified Code(s): J44.9 - Chronic obstructive pulmonary disease, unspecified Is this a current diagnosis for this admission?: Yes Plan: Chronic respiratory failure with hypoxia and hypercapnia per ABG. Breo currently on hold. Continue supplemental oxygen and BiPAP as needed to maintain saturations greater than 89%. Providing scheduled and as needed nebulizer treatments. No indications for steroids or antibiotic therapy at this time. Patient would benefit from close pulmonology follow-up. - Time Time Spent with patient: 35 or more minutes Medications reviewed and adjusted accordingly: Yes Anticipated discharge: Home with Homehealth Within: within 72 hours
[2019-06-10] MEDS: ATORVASTATIN CALCIUM 20 MG TABLET PO SCH (21:34)
[2019-06-11 05:58] LABS: HEMATOCRIT 28.6 % (36.0-47.0); HEMOGLOBIN 9.2 g/dL (12.0-15.5); MEAN CORPUSCULAR HEMOGLOBIN 26.5 pg (27.0-33.4); MEAN CORPUSCULAR HGB CONC 32.2 g/dL (32.0-36.0); MEAN CORPUSCULAR VOLUME 82 fl (80-97); PLATELET COUNT 210 10^3/uL (150-450); RED BLOOD COUNT 3.47 10^6/uL (3.72-5.28); RED CELL DISTRIBUTION WIDTH 21.1 % (11.5-14.0); WHITE BLOOD COUNT 6.7 10^3/uL (4.0-10.5)
[2019-06-11 06:37] LABS: BLOOD UREA NITROGEN 25 mg/dL (7-20); CALCIUM 8.7 mg/dL (8.4-10.2); CHLORIDE 97 mmol/L (98-107); GLUCOSE 100 mg/dL (75-110); POTASSIUM 4.5 mmol/L (3.6-5.0)
[2019-06-11 07:07] LABS: ANION GAP 2 (5-19)
[2019-06-11 07:08] LABS: CARBON DIOXIDE 44 mmol/L (22-30)
[2019-06-11] MEDS: IPRATROPIUM/ALBUTEROL 0.5-2.5 MG/3 ML AMPUL NEB SCH ×2 (07:36→21:00)
[2019-06-11] MEDS ORDERED: MEDROL DOSEPAK (DAY 4) PO SCH (08:00)
[2019-06-11] MEDS: MULTIVITAMINS W-IRON TABLET, CHEWABLE PO SCH (11:30)
[2019-06-11] MEDS: OXYBUTYNIN CHLORIDE 5 MG TABLET PO SCH ×2 (11:31→22:10)
[2019-06-11] MEDS: AZITHROMYCIN 250 MG TABLET PO SCH (11:31)
[2019-06-11] MEDS: METOPROLOL TARTRATE 100 MG TABLET PO SCH ×2 (11:31→22:10)
[2019-06-11] MEDS: FUROSEMIDE 40 MG TABLET PO SCH ×2 (11:32→22:10)
[2019-06-11] MEDS: POTASSIUM CHLORIDE 10 MEQ TABLET.ER PO SCH (11:32)
[2019-06-11] MEDS: LISINOPRIL 5 MG TABLET PO SCH (11:32)
[2019-06-11] MEDS: GUAIFENESIN 600 MG TABLET.SA PO SCH ×3 (11:32→22:11)
[2019-06-11] MEDS: DULOXETINE HCL 20 MG CAPSULE.DR PO SCH (11:41)
--- NOTE | 2019-06-11 15:32 | PDOC PROGRESS REPORT ---
Subjective Progress Note for:: 06/11/19 Subjective:: The patient is an 83-year-old female with a past medical history of CHF, COPD, A. fib, hypertension, hyperlipidemia, Crohn's disease, GERD, ulcerative colitis, arthritis, depression, and tobacco dependence who was admitted 06/03/2019 for acute respiratory failure with hypoxia. Patient was seen on morning rounds and again shortly later with family members present. She was found lying in bed, comfortably, on supplemental oxygen by nasal cannula at 3 L/min. She is home O2 dependent. The patient is A&O x4; clear speach today. She reports she is feeling much better and is looking forward to working with physical therapy this afternoon. She reports she has returned to her baseline dyspnea, denies cough, denies chest wall pain. She further denies fever, chills, chest pain, palpitations, abdominal pain, nausea vomiting and diarrhea. Patient family have no other questions or concerns at this time. No concerns per nursing. Reason For Visit: ACUTE ON CHRONIC HYPOXIC RESPIRATORY FAILURE Physical Exam Vital Signs: Temp Pulse Resp BP Pulse Ox 97.8 F 95 18 149/68 H 100 06/11/19 07:11 06/11/19 07:35 06/11/19 07:35 06/11/19 07:11 06/11/19 07:35 Intake & Output 06/10/19 06/11/19 06/12/19 06:59 06:59 06:59 Intake Total 770 50 Output Total 75 0 Balance 770 -25 0 Weight 58.5 kg 57.2 kg General appearance: PRESENT: no acute distress, cooperative, thin, well- developed, well-nourished Head exam: PRESENT: atraumatic, normocephalic Eye exam: PRESENT: conjunctiva pink, EOMI, PERRLA. ABSENT: scleral icterus Ear exam: PRESENT: normal external ear exam Mouth exam: PRESENT: moist, tongue midline Respiratory exam: PRESENT: decreased breath sounds - Bibasilar, rhonchi, symmetrical, unlabored, other - Supplemental oxygen; chest tube. ABSENT: rales, wheezes Cardiovascular exam: PRESENT: RRR, +S1, +S2. ABSENT: diastolic murmur, rubs, systolic murmur Pulses: PRESENT: normal dorsalis pedis pul Vascular exam: PRESENT: normal capillary refill GI/Abdominal exam: PRESENT: normal bowel sounds, soft. ABSENT: distended, guarding, mass, organolmegaly, rebound, tenderness Rectal exam: PRESENT: deferred Extremities exam: PRESENT: full ROM. ABSENT: calf tenderness, clubbing, pedal edema Neurological exam: PRESENT: alert, awake, oriented to person, oriented to place, oriented to time, oriented to situation, CN II-XII grossly intact. ABSENT: motor sensory deficit Psychiatric exam: PRESENT: appropriate affect, normal mood. ABSENT: homicidal ideation, suicidal ideation Skin exam: PRESENT: dry, intact, warm. ABSENT: cyanosis, rash Results Laboratory Results: 06/11/19 05:30 06/11/19 05:30 06/05/19 06/10/19 06/11/19 14:00 16:01 05:30 WBC 7.6 6.7 RBC 3.55 L 3.47 L Hgb 9.4 L 9.2 L Hct 29.1 L 28.6 L MCV 82 82 MCH 26.4 L 26.5 L MCHC 32.2 32.2 RDW 21.3 H 21.1 H Plt Count 223 210 Sodium Potassium Chloride Carbon Dioxide Anion Gap BUN Creatinine Est GFR ( Amer) Glucose Calcium Fluid Amylase 27 06/11/19 05:30 WBC RBC Hgb Hct MCV MCH MCHC RDW Plt Count Sodium 142.5 Potassium 4.5 Chloride 97 L Carbon Dioxide 44 H* Anion Gap 2 L BUN 25 H Creatinine 1.04 Est GFR ( Amer) > 60 Glucose 100 Calcium 8.7 Fluid Amylase 06/03/19 06/04/19 13:16 16:31 Troponin I 0.017 NT-Pro-B Natriuret Pep 58417 H Impressions: Thoracentesis Ultrasound 06/05/19 08:00 IMPRESSION: SUCCESSFUL THORACENTESIS USING ULTRASOUND GUIDANCE. Chest CT 06/08/19 00:00 IMPRESSION: Re-accumulation of a moderate right and small left pleural effusion. Right middle lobe collapse/ consolidation Bibasilar atelectasis Chest X-Ray 06/09/19 00:00 IMPRESSION: Persistent basilar infiltrates and pleural effusions right greater than left. Findings have progressed when compared to prior study. Thoracentesis 06/10/19 08:30 IMPRESSION: Successful CT-guided placement of a 10 [place] all-purpose drainage catheter into the right pleural space. Of note, a portion of the aspirated fluid was collected for analysis. Assessment and Plan - Diagnosis (1) Acute respiratory failure with hypoxia and hypercapnia Is this a current diagnosis for this admission?: Yes Plan: Chest x-ray demonstrates persistent right-sided pleural effusion. ABG shows metabolic alkalosis with hypercapnia and hypoxia. S/p repeat thoracentesis w/ >1L drained to chest tube via Pleurex catheter in first 18 hours. Continue supplemental oxygen and BiPAP support. Continue scheduled and as needed nebulizer treatments. Mucinex twice daily. Encourage BiPAP; pulmonary toilet when off BiPAP. Patient would benefit from pulmonology and cardiology consultation. (2) Acute on chronic diastolic (congestive) heart failure Is this a current diagnosis for this admission?: Yes Plan: Stable and not in exacerbation at this time. Echocardiogram 318 demonstrated normal LVEF. Weight down 8 kg. Continue metoprolol and furosemide. Continue low-dose lisinopril. Continue Eliquis and statin therapy. (3) Recurrent pleural effusion on right Is this a current diagnosis for this admission?: Yes Plan: Thoracentesis 06/05/2019 revealed transudative fluid. Echocardiogram pending. Repeat thoracentesis with Pleurx drain placement done yesterday. Currently connected to chest tube; greater than 1 L output in first 18 hours. Less than 200 mL over the last 12 hours. Hematology/oncology is consulted. Will transition from low wall suction to waterseal/gravity. Monitor overnight for total volume output. We will plan on home health nursing for intermittent drainage via Pleurx catheter and canister following discharge until can be evaluated by cardiothoracic surgery as requested by family. The patient's son is interested in cardiothoracic surgical referral for eval uation for VATS procedure. I advised that I did not feel that she would be a candidate for surgical intervention. However, we will provide referral for outpatient follow-up following discharge; requesting [facility] Surgeon. Follow up with Graphic Design Manager at earliest available appointment. Keep appointment w/ Dr. Servin scheduled for this week. (4) Anemia Qualifiers: Anemia type: unspecified type Qualified Code(s): D64.9 - Anemia, un specified Is this a current diagnosis for this admission?: Yes Plan: Stable; hemoglobin has trended down slightly from 9.6-8.5 but has remained unchanged since June 04. No signs of active bleeding at this time. Anemia panel reveals mild iron deficiency. Continue multivitamin with iron supplementation. (5) Hyperglycemia Is this a current diagnosis for this admission?: Yes Plan: A1c 5.7%. Hyperglycemia likely secondary to steroid use and acute illness. No further evaluation/management required. (6) Hyperkalemia Is this a current diagnosis for this admission?: Yes Plan: Resolved; will monitor with daily chemistries. (7) COPD (chronic obstructive pulmonary disease) Qualifiers: COPD type: unspecified COPD Qualified Code(s): J44.9 - Chronic obstructive pulmonary disease, unspecified Is this a current diagnosis for this admission?: Yes Plan: Chronic respiratory failure with hypoxia and hypercapnia per ABG. Breo currently on hold. Continue supplemental oxygen and BiPAP as needed to maintain saturations greater than 89%. Providing scheduled and as needed nebulizer treatments. No indications for steroids or antibiotic therapy at this time. Patient would benefit from close pulmonology follow-up. - Time Time Spent with patient: 35 or more minutes Medications reviewed and adjusted accordingly: Yes Anticipated discharge: Home with Homehealth Within: within 48 hours
[2019-06-11] MEDS: FLUTICASONE/VILANTEROL 200-25 MCG/DOSE IH SCH (16:51)
[2019-06-11] MEDS: ACETAMINOPHEN 325 MG TABLET PO PRN ×2 (16:53→22:55)
[2019-06-11] MEDS: ONDANSETRON HCL INJ/PF 4 MG/2 ML SDV IV PRN (16:57)
[2019-06-11] MEDS: ATORVASTATIN CALCIUM 20 MG TABLET PO SCH (22:10)
[2019-06-12] MEDS: ONDANSETRON HCL INJ/PF 4 MG/2 ML SDV IV PRN (01:09)
[2019-06-12 05:23] LABS: HEMATOCRIT 26.8 % (36.0-47.0); HEMOGLOBIN 8.7 g/dL (12.0-15.5); MEAN CORPUSCULAR HEMOGLOBIN 26.6 pg (27.0-33.4); MEAN CORPUSCULAR HGB CONC 32.4 g/dL (32.0-36.0); MEAN CORPUSCULAR VOLUME 82 fl (80-97); PLATELET COUNT 191 10^3/uL (150-450); RED BLOOD COUNT 3.27 10^6/uL (3.72-5.28); RED CELL DISTRIBUTION WIDTH 21.1 % (11.5-14.0); WHITE BLOOD COUNT 6.1 10^3/uL (4.0-10.5)
[2019-06-12 05:52] LABS: BLOOD UREA NITROGEN 25 mg/dL (7-20); CALCIUM 8.6 mg/dL (8.4-10.2); GLUCOSE 91 mg/dL (75-110); POTASSIUM 4.2 mmol/L (3.6-5.0)
[2019-06-12 06:37] LABS: CHLORIDE 98 mmol/L (98-107)
[2019-06-12 06:45] LABS: ANION GAP 3 (5-19)
[2019-06-12 06:47] LABS: CARBON DIOXIDE 40 mmol/L (22-30)
[2019-06-12] MEDS: IPRATROPIUM/ALBUTEROL 0.5-2.5 MG/3 ML AMPUL NEB SCH (07:41)
[2019-06-12] MEDS ORDERED: MEDROL DOSEPAK (DAY 5) PO SCH (08:00)
--- NOTE | 2019-06-12 08:07 | PDOC PROGRESS REPORT ---
Subjective Progress Note for:: 06/12/19 Subjective:: Patient states that she is feeling OK. No new problems voiced. Nurses report pleurex continues to drain. Reason For Visit: ACUTE ON CHRONIC HYPOXIC RESPIRATORY FAILURE Physical Exam Vital Signs: Temp Pulse Resp BP Pulse Ox 97.8 F 108 H 20 141/73 H 94 06/12/19 04:20 06/12/19 07:41 06/12/19 07:41 06/12/19 04:20 06/12/19 07:41 Intake & Output 06/11/19 06/12/19 06/13/19 06:59 06:59 06:59 Intake Total 50 565 Output Total 75 150 Balance -25 415 Weight 57.2 kg 57.5 kg Results Laboratory Results: 06/12/19 05:05 06/12/19 05:05 06/05/19 06/12/19 06/12/19 14:00 05:05 05:05 WBC 6.1 RBC 3.27 L Hgb 8.7 L Hct 26.8 L MCV 82 MCH 26.6 L MCHC 32.4 RDW 21.1 H Plt Count 191 Sodium 141.3 Potassium 4.2 Chloride 98 Carbon Dioxide 40 H* Anion Gap 3 L BUN 25 H Creatinine 1.00 Est GFR ( Amer) > 60 Glucose 91 Calcium 8.6 Fluid Amylase 27 06/03/19 06/04/19 13:16 16:31 Troponin I 0.017 NT-Pro-B Natriuret Pep [id number] H Impressions: Thoracentesis Ultrasound 06/05/19 08:00 IMPRESSION: SUCCESSFUL THORACENTESIS USING ULTRASOUND GUIDANCE. Chest CT 06/08/19 00:00 IMPRESSION: Re-accumulation of a moderate right and small left pleural effusion. Right middle lobe collapse/ consolidation Bibasilar atelectasis Chest X-Ray 06/09/19 00:00 IMPRESSION: Persistent basilar infiltrates and pleural effusions right greater than left. Findings have progressed when compared to prior study. Thoracentesis 06/10/19 08:30 IMPRESSION: Successful CT-guided placement of a 10 Swedish all-purpose drainage catheter into the right pleural space. Of note, a portion of the aspirated fluid was collected for analysis. Assessment & Plan - Diagnosis (1) CHF (congestive heart failure) Qualifiers: Heart failure type: unspecified Heart failure chronicity: acute on chronic Qualified Code(s): I50.9 - Heart failure, unspecified Is this a current diagnosis for this admission?: Yes (2) COPD (chronic obstructive pulmonary disease) Qualifiers: COPD type: unspecified COPD Qualified Code(s): J44.9 - Chronic obstructive pulmonary disease, unspecified Is this a current diagnosis for this admission?: Yes (3) Recurrent pleural effusion on right Is this a current diagnosis for this admission?: Yes Plan: pleurex is in place. Cytology without evidence of malignancy. I will sign off. I am happy to help in the future, if called. - Time Time Spent with patient: Less than 15 minutes
[2019-06-12] MEDS ORDERED: MAGNESIUM HYDROXIDE SUSP 30 ML UDCUP PO PRN (12:06)
[2019-06-12] MEDS ORDERED: POLYETHYLENE GLYCOL 3350 POWDER 17 GM/1 PACKET PO SCH (13:00)
[2019-06-12] MEDS: METOPROLOL TARTRATE 100 MG TABLET PO SCH (13:06)
[2019-06-12] MEDS: POTASSIUM CHLORIDE 10 MEQ TABLET.ER PO SCH (13:06)
[2019-06-12] MEDS: GUAIFENESIN 600 MG TABLET.SA PO SCH ×2 (13:06→17:15)
[2019-06-12] MEDS: MULTIVITAMINS W-IRON TABLET, CHEWABLE PO SCH (13:07)
[2019-06-12] MEDS: APIXABAN 5 MG TABLET PO SCH ×2 (13:07→17:16)
[2019-06-12] MEDS: LISINOPRIL 5 MG TABLET PO SCH (13:09)
[2019-06-12] MEDS: OXYBUTYNIN CHLORIDE 5 MG TABLET PO SCH (13:09)
[2019-06-12] MEDS: FUROSEMIDE 40 MG TABLET PO SCH ×2 (13:09→17:15)
[2019-06-12] MEDS: AZITHROMYCIN 250 MG TABLET PO SCH (13:09)
[2019-06-12] MEDS: CALCITRIOL 0.25 MCG CAPSULE PO SCH (13:10)
[2019-06-12] MEDS: ACETAMINOPHEN 325 MG TABLET PO PRN (13:10)
[2019-06-12] MEDS: FLUTICASONE/VILANTEROL 200-25 MCG/DOSE IH SCH (13:13)
--- NOTE | 2019-06-12 14:22 | RADIOLOGY REPORT (SQ) ---
EXAM DESCRIPTION: CHEST SINGLE VIEW COMPLETED DATE/TIME: 06/12/2019 1:50 pm REASON FOR STUDY: chest tube drainage COMPARISON: 06/09/2019 EXAM PARAMETERS: NUMBER OF VIEWS: One view. TECHNIQUE: Single frontal radiographic view of the chest acquired. RADIATION DOSE: NA LIMITATIONS: None. FINDINGS: LUNGS AND PLEURA: Markedly improved right basilar aeration with pigtail catheter overlying right lower chest. Small residual bilateral effusions. Chronic interstitial changes. No pneumotho rax. MEDIASTINUM AND HILAR STRUCTURES: Stable. HEART AND VASCULAR STRUCTURES: Enlarged, stable. BONES: No acute findings. HARDWARE: Small bore right basilar chest tube. OTHER: No other significant finding. IMPRESSION: Markedly improved right basilar aeration. Small bore right basilar chest tube with resi dual small bilateral pleural effusions. No appreciable pneumothorax. Stable large cardiac silhouette. TECHNICAL DOCUMENTATION: JOB ID: [id number] [employer]- All Rights Reserved Reading location - IP/workstation name: [email or web address]
[2019-06-12] MEDS ORDERED: DIGOXIN INJ 0.5 MG/2 ML AMPULE IV ONE (15:30)
[2019-06-12] MEDS ORDERED: SPIRONOLACTONE 25 MG TABLET PO SCH (16:00)
--- NOTE | 2019-06-12 16:27 | RADIOLOGY REPORT (SQ) ---
EXAM DESCRIPTION: CHEST SINGLE VIEW COMPLETED DATE/TIME: 06/12/2019 4:08 pm REASON FOR STUDY: Accidental removal of chest tube; dyspnea COMPARISON: Same day radiograph EXAM PARAMETERS: NUMBER OF VIEWS: One view. TECHNIQUE: Single frontal radiographic view of the chest acquired. RADIATION DOSE: NA LIMITATIONS: None. FINDINGS: LUNGS AND PLEURA: Stable interstitial opacities and trace bilateral effusions. There is b een removal of the right-sided chest tube. No appreciable pneumothorax. MEDIASTINUM AND HILAR STRUCTURES: Stable pre HEART AND VASCULAR STRUCTURES: Enlarged, stable. BONES: No acute findings. HARDWARE: Removal of the right basilar chest tube. OTHER: No other significant finding. IMPRESSION: Interval removal of the right basilar chest tube. No appreciable pneumothorax. Stable additional findings as above. TECHNICAL DOCUMENTATION: JOB ID: [id number] [employer]- All Rights Reserved Reading location - IP/workstation name: [email or web address]
--- NOTE | 2019-06-12 17:26 | PDOC TRANSFER SUMMARY ---
General Admission Date/PCP: 06/03/19 15:50 CARMELA RESENDIZ Admission Date: 06/03/19 Accepting Facility: [facility] Accepting Physician: Dr. Mcnamara; Dr. Bowser attending Resuscitation Status: Full Code - Transfer Diagnosis (1) Acute on chronic congestive heart failure Is this a current diagnosis for this admission?: Yes (2) Recurrent pleural effusion on right Is this a current diagnosis for this admission?: Yes (3) Acute respiratory failure with hypoxia and hypercapnia Is this a current diagnosis for this admission?: Yes (4) Anemia Is this a current diagnosis for this admission?: Yes (5) Hyperglycemia Is this a current diagnosis for this admission?: Yes (6) Hyperkalemia Is this a current diagnosis for this admission?: Yes (7) COPD (chronic obstructive pulmonary disease) Is this a current diagnosis for this admission?: Yes - Transfer Medications Home Medications: Albuterol Sulfate [Proair Hfa Inhalation Aerosol 8.5 gm Mdi] 400 puff IH Q6HP PRN 06/03/19 Apixaban [Eliquis 5 mg Tablet] 5 mg PO BID 06/03/19 Atorvastatin Calcium [Lipitor 20 mg Tablet] 20 mg PO QHS 06/03/19 Calcitriol [Rocaltrol] 0.25 mcg PO MOWEFR@1000 06/03/19 Duloxetine HCl [Cymbalta 20 Mg Capsule.Dr] 20 mg PO DAILY 06/03/19 Fluticasone/Vilanterol [Breo 200-25 Mcg Ellipta 14 Dose/Dpi] 1 inh IH DAILY 06/03/19 Furosemide [Lasix 20 mg Tablet] 20 mg PO BID 06/03/19 Methylprednisolone [Medrol Dosepack (4 mg/Tab) 21 Tab/Dosepak] 4 mg PO ASDIR PRN 06/03/19 Metoprolol Tartrate [Lopressor 50 mg Tablet] 50 mg PO BID 06/03/19 Oxybutynin Chloride [Ditropan Xl] 10 mg PO DAILY 06/03/19 Potassium Chloride 20 meq PO DAILY 06/03/19 Transfer Medications: Current Medications Acetaminophen (Tylenol 325 Mg Tablet) 650 mg PO Q4HP PRN PRN Reason: FOR MILD PAIN Stop: 07/03/19 15:20 Last Admin: 06/12/19 13:10 Dose: 650 mg Documented by: Al Hydrox/Mg Hydrox/Simethicone (Maalox Plus Susp 30 Udcup) 30 ml PO Q6HP PRN PRN Reason: HEARTBURN Stop: 07/03/19 15:20 Albuterol (Proair Hfa Inhalation Aerosol 8.5 Gm Mdi) 2 puff IH Q6HP PRN PRN Reason: SHORTNESS OF BREATH Stop: 07/05/19 09:51 Albuterol (Ventolin 0.042% Neb 1.25 Mg/3 Ml Ampul) 1.25 mg NEB RTQ4HP PRN PRN Reason: SHORTNESS OF BREATH Stop: 07/09/19 17:50 Albuterol/Ipratropium (Duoneb 3 Ml Ampul) 3 ml NEB RTQ12 ON LICENSE OF [facility] Stop: 07/09/19 19:59 Last Admin: 06/12/19 07:41 Dose: 3 ml Documented by: Apixaban (Eliquis 5 Mg Tablet) 2.5 mg PO BID ON LICENSE OF [facility] Stop: 07/11/19 17:59 Last Admin: 06/12/19 13:07 Dose: 2.5 mg Documented by: Atorvastatin Calcium (Lipitor 20 Mg Tablet) 20 mg PO QHS ON LICENSE OF [facility] Stop: 07/04/19 21:59 Last Admin: 06/11/19 22:10 Dose: 20 mg Documented by: Calcitriol (Rocaltrol 0.25 Mcg Capsule) 0.25 mcg PO MOWEFR@1000 ON LICENSE OF [facility] Stop: 07/05/19 09:59 Last Admin: 06/12/19 13:10 Dose: 0.25 mcg Documented by: Digoxin (Lanoxin 0.125 Mg Tablet) 0.125 mg PO DAILY ON LICENSE OF [facility] Stop: 07/13/19 09:59 Duloxetine HCl (Cymbalta 20 Mg Capsule.Dr) 20 mg PO DAILY ON LICENSE OF [facility] Stop: 07/04/19 12:59 Last Admin: 06/11/19 11:41 Dose: 20 mg Documented by: Fluticasone/Vilanterol (Breo 200-25 Mcg Ellipta 14 Dose/Dpi) 1 inh IH DAILY KATELYNN Stop: 07/04/19 12:59 Last Admin: 06/12/19 13:13 Dose: Not Given Documented by: Furosemide (Lasix 40 Mg Tablet) 40 mg PO BID ON LICENSE OF [facility] Stop: 07/06/19 09:59 Last Admin: 06/12/19 13:09 Dose: 40 mg Documented by: Guaifenesin (Mucinex Sr 600 Mg Tablet.Sa) 600 mg PO BID ON LICENSE OF [facility] Stop: 07/07/19 17:59 Last Admin: 06/12/19 13:06 Dose: 600 mg Documented by: Lisinopril (Prinivil 5 Mg Tablet) 5 mg PO DAILY ON LICENSE OF [facility] Stop: 07/10/19 09:59 Last Admin: 06/12/19 13:09 Dose: 5 mg Documented by: Magnesium Hydroxide (Milk Of Magnesia 30 Ml Udcup) 30 ml PO DAILYP PRN PRN Reason: CONSTIPATION Stop: 07/12/19 12:05 Metoprolol Tartrate (Lopressor 100 Mg Tablet) 100 mg PO Q12 KATELYNN Stop: 07/06/19 09:59 Last Admin: 06/12/19 13:06 Dose: 100 mg Documented by: Multivitamins/Iron (Flintstones Chewable Multivit W/Fe Tab) 2 tab PO DAILY KATELYNN Stop: 07/10/19 09:59 Last Admin: 06/12/19 13:07 Dose: 2 tab Documented by: Ondansetron HCl (Zofran Inj/Pf 4 Mg/2 Ml Sdv) 4 mg IV Q8HP PRN PRN Reason: FOR NAUSEA/VOMITING Stop: 07/03/19 15:20 Last Admin: 06/12/19 01:09 Dose: 4 mg Documented by: Oxybutynin Chloride (Ditropan 5 Mg Tablet) 5 mg PO Q12 ON LICENSE OF [facility] Stop: 07/04/19 21:59 Last Admin: 06/12/19 13:09 Dose: 5 mg Documented by: Polyethylene Glycol (Miralax Powder 17 Gm/Packet) 17 gm PO DAILY ON LICENSE OF [facility] Stop: 07/12/19 12:59 Potassium Chloride (Klor-Con 10 Meq Capsule Er) 20 meq PO DAILY ON LICENSE OF [facility] Stop: 07/04/19 12:29 Last Admin: 06/12/19 13:06 Dose: 20 meq Documented by: Sodium Chloride (Saline Flush 2.5 Ml Monoject Prefil Syrin) 2.5 ml IV Q8 KATELYNN Stop: 07/03/19 21:59 Last Admin: 06/11/19 22:54 Dose: Not Given Documented by: Spironolactone (Aldactone 25 Mg Tablet) 25 mg PO DAILY ON LICENSE OF [facility] Stop: 07/12/19 15:59 - Allergies Allergies/Adverse Reactions: prednisone [Prednisone] Allergy (Unknown, Verified 04/10/19 17:23) cephalexin [Cephalexin] Allergy (Verified 05/08/19 07:45) ciprofloxacin [From Cipro] Allergy (Verified 04/10/19 17:23) cortisone [Cortisone] Allergy (Verified 04/10/19 17:23) Penicillins Allergy (Verified 04/10/19 17:23) phenazopyridine [Phenazopyridine] Allergy (Verified 04/10/19 17:23) Sulfa (Sulfonamide Antibiotics) Allergy (Verified 04/10/19 17:23) sulfamethoxazole [From Bactrim] Allergy (Verified 04/10/19 17:23) tramadol HCl [From Ultram] Allergy (Verified 04/10/19:) trimethoprim [From Bactrim] Allergy (Verified 04/10/19 17:23) - Diet/Activity Discharge Diet: Cardiac Discharge Activity: Activity As Tolerated, Balance Activity w/Rest Hospital Course Hospital Course: Per H&P Gómez Cruz: CINTHYA DANIELLE is a 83 year old female with a long-standing history of congestive heart failure, COPD, A. fib presents to the emergency department chief complaint shortness of breath. Patient reports she seen here 2 days ago for shortness of breath and prescribed oral methylprednisolone. Patient states she continued to worsen over the course of those days. Patient reports back to the ER now having trouble talking full sentences in the setting without oxygen therapy. Patient also shows a moderate right pleural effusion which has been tapped previously. She had no other treatment prior to arrival all active is aggravating factor. Course: The patient was admitted to the IMCU unit on continuous cardiac telemetry and supplemental oxygen. BiPAP was used nightly prn. The patient underwent Thoracentesis on 06/05/2019 with resultant pleural fluid (900ml removed) testing as transudative and cytology results eventually returning negative for malignancy. Oncology was consulted as there was some initial concern that this may be her recurrent pleural effusion was due to an undiagnosed malignancy. Of note, the patient underwent thoracentesis in April 2019 of this year with negative cytology results at that time as well. The patient remained tachypneic with diminished breath sounds and oxygen dependence. Attention was turned to her underlying cardiac health. Her home dose cardiac function was optimized through increasing her home dose metoprolol to 100 mg p.o. twice daily, increasing furosemide to 40 mg p.o. twice daily, adding lisinopril 5 mg daily, fluid and salt restricting diet. Unfortunately, the pleural effusion rapidly reaccumulated and on 06/10/2019 the patient underwent a second thoracentesis with greater than 1 L of fluid removed via chest tube in the first 24 hours. The chest tube was transitioned to waterseal with an additional 300 mL output of serous fluid. The patient's respiratory status rapidly improved following placement of the chest tube with decreased tachypnea, work of breathing and ability to conversation in full sentences and ambulate. She did however remain oxygen dependent. Echocardiogram was obtained; at this time formalize report is not yet available. We do not have cardiology services today and so the medical radiation dosimetrist was asked to review images as I was concerned that she had poor ejection fraction with global hypokinesis. Dr. Arzola's did confirm an estimated ejection fraction of 15% with only the inferior wall demonstrating coordinated movement. The patient did have an echocardiogram from September 2017 which at that time revealed a normal ejection fraction with moderate diastolic dysfunction. Per Dr. Arzola's recommendations, the patient has been provided a loading dose of digoxin and started on spironolactone as well. Based on the patient's new onset severe CHF, likely need for AICD placement, possible need for pulmonology or cardiothoracic surgery services; it was recommended that the patient transfer to tertiary care we are the specialty providers were readily available. I spoke with Dr. Mcnamara, [facility], who has graciously agreed to accept this patient with Dr. Bowser attending. Physical Exam Vital Signs: Temp Pulse Resp BP Pulse Ox 98.3 F 95 16 104/58 L 100 06/12/19 12:22 06/12/19 12:22 06/12/19 12:22 06/12/19 12:22 06/12/19 12:22 Intake & Output 06/11/19 06/12/19 06/13/19 06:59 06:59 06:59 Intake Total 50 565 Output Total 75 150 0 Balance -25 415 0 Weight 57.2 kg 57.5 kg General appearance: PRESENT: no acute distress, cooperative, thin, well- developed Head exam: PRESENT: atraumatic, normocephalic Eye exam: PRESENT: conjunctiva pink, EOMI, PERRLA. ABSENT: scleral icterus Ear exam: PRESENT: normal external ear exam Mouth exam: PRESENT: moist, tongue midline Neck exam: ABSENT: carotid bruit, JVD, lymphadenopathy, thyromegaly Respiratory exam: PRESENT: decreased breath sounds - bibasilar, prolonged expiratory phas, symmetrical, tachypnea, unlabored, other - supplemental oxygen via NC. ABSENT: rales, rhonchi, wheezes Cardiovascular exam: PRESENT: RRR. ABSENT: diastolic murmur, rubs, systolic murmur Pulses: PRESENT: normal dorsalis pedis pul Vascular exam: PRESENT: normal capillary refill GI/Abdominal exam: PRESENT: normal bowel sounds, soft. ABSENT: distended, guarding, mass, organolmegaly, rebound, tenderness Rectal exam: PRESENT: deferred Extremities exam: PRESENT: full ROM. ABSENT: calf tenderness, clubbing, pedal edema Neurological exam: PRESENT: alert, awake, oriented to person, oriented to place, oriented to time, oriented to situation, CN II-XII grossly intact. ABSENT: motor sensory deficit Psychiatric exam: PRESENT: appropriate affect, normal mood. ABSENT: homicidal ideation, suicidal ideation Skin exam: PRESENT: dry, intact, warm. ABSENT: cyanosis, rash Results Laboratory Results: 06/12/19 05:05 06/12/19 05:05 06/12/19 06/12/19 05:05 05:05 WBC 6.1 RBC 3.27 L Hgb 8.7 L Hct 26.8 L MCV 82 MCH 26.6 L MCHC 32.4 RDW 21.1 H Plt Count 191 Sodium 141.3 Potassium 4.2 Chloride 98 Carbon Dioxide 40 H* Anion Gap 3 L BUN 25 H Creatinine 1.00 Est GFR ( Amer) > 60 Glucose 91 Calcium 8.6 06/03/19 06/04/19 13:16 16:31 Troponin I 0.017 NT-Pro-B Natriuret Pep 10724 H Impressions: Thoracentesis Ultrasound 06/05/19 08:00 IMPRESSION: SUCCESSFUL THORACENTESIS USING ULTRASOUND GUIDANCE. Chest CT 06/08/19 00:00 IMPRESSION: Re-accumulation of a moderate right and small left pleural effusion. Right middle lobe collapse/ consolidation Bibasilar atelectasis Thoracentesis 06/10/19 08:30 IMPRESSION: Successful CT-guided placement of a 10 [place] all-purpose drainage catheter into the right pleural space. Of note, a portion of the aspirated fluid was collected for analysis. Chest X-Ray 06/12/19 13:27 IMPRESSION: Markedly improved right basilar aeration. Small bore right basilar chest tube with residual small bilateral pleural effusions. No appreciable pneumothorax. Stable large cardiac silhouette. Plan Discharge Plan: Transfer to [facility] services; appreciate Dr. Mcnamara and Dr. Bowser Time Spent: Greater than 30 Minutes
[2019-06-12] MEDS: DULOXETINE HCL 20 MG CAPSULE.DR PO SCH (17:30)
[2019-06-12 20:59] VITALS: BP 112/70
[2019-06-13] MEDS ORDERED: MEDROL DOSEPAK (DAY 6) PO SCH (08:00)
[2019-06-13] MEDS ORDERED: POLYETHYLENE GLYCOL 3350 POWDER 17 GM/1 PACKET PO SCH (10:00)
[2019-06-13] MEDS ORDERED: DIGOXIN 0.125 MG TABLET PO SCH (10:00)
== END 2019-06-12 20:13 | disposition short-term general hospital (02) | DRG 291 ==
LOC: ER 13:01 → EH 15:50 → 3S 19:45
PROVIDERS: ADMIT Internal Medicine; ATTEND Internal Medicine
PROC: 0W993ZX Drainage of Right Pleural Cavity, Percutaneous Approach, Diagnostic (ICD-10-PCS; 2019-06-05)
PROC: 0W9930Z Drainage of Right Pleural Cavity with Drainage Device, Percutaneous Approach (ICD-10-PCS; principal; 2019-06-10)
DX: I11.0 Hypertensive heart disease with heart failure (principal); J96.21 Acute and chronic respiratory failure with hypoxia; J96.22 Acute and chronic respiratory failure with hypercapnia; J44.1 Chronic obstructive pulmonary disease with (acute) exacerbation; I48.20 Chronic atrial fibrillation, unspecified; K50.90 Crohn's disease, unspecified, without complications; I50.43 Acute on chronic combined systolic (congestive) and diastolic (congestive) heart failure; I25.10 Atherosclerotic heart disease of native coronary artery without angina pectoris; D64.9 Anemia, unspecified; E87.5 Hyperkalemia; R73.9 Hyperglycemia, unspecified; M19.90 Unspecified osteoarthritis, unspecified site; F32.9 Major depressive disorder, single episode, unspecified; Z88.0 Allergy status to penicillin; Z88.2 Allergy status to sulfonamides; Z88.1 Allergy status to other antibiotic agents; Z88.8 Allergy status to other drugs, medicaments and biological substances; I25.2 Old myocardial infarction; I69.328 Other speech and language deficits following cerebral infarction; Z95.5 Presence of coronary angioplasty implant and graft; K21.9 Gastro-esophageal reflux disease without esophagitis; F17.200 Nicotine dependence, unspecified, uncomplicated; Z99.81 Dependence on supplemental oxygen; Z79.51 Long term (current) use of inhaled steroids; Z79.01 Long term (current) use of anticoagulants; Z79.899 Other long term (current) drug therapy
CPT/HCPCS: 32551; 32555; 36415; 36600; 71045; 71260; 80048; 80053; 80202; 81001; 82150; 82550; 82553; 82607; 82728; 82746; 82803; 82945; 82962; 83036; 83540; 83550; 83615; 83735; 83880; 84100; 84157; 84484; 85025; 85027; 85045; 85610; 85730; 87040; 87070; 87075; 87205; 88305; 89050; 93005; 93010; 93306; 94640; 94660; 99285; C1729; C1894; J1160; J1940; J2060; J2250; J2405; J3010; J3370; J3490; J7060; J7509; J7620

== ENCOUNTER 2019-06-12 21:38 | Emergency (ER) | payer MEDICARE, OTHER ==
--- NOTE | 2019-06-12 22:23 | ER Document Report ---
ED Respiratory Problem - General Chief Complaint: Shortness Of Breath Stated Complaint: UNKNOWN Time Seen by Provider: 06/12/19 22:09 Primary Care Provider: RACHEL MEDRANO FNP [Primary Care Provider] - Follow up as needed Notes: Patient is an 83-year-old female that comes emergency department by EMS, she was actually in route to [facility] when they decided to bring her back instead of continuing to [facility]. Nursing staff that took report reports they were having difficulty hearing breath sounds and they were concerned patient may have had a pneumothorax. On my evaluation patient denies any complaints, states her lore athing has not changed, denies chest pain, denies dizziness, denies anything except "feeling claustrophobic". Patient was initially admitted here and had a pleural effusion drained, she had this drained again and a port/chest tube was placed because of recurrent pleural effusions, since no underlying malignancy was found it was felt that this was most likely cardiac in nature, patient was found to have a very poor ejection fraction of only 15%, therefore she was transferred to [facility] for cardiovascular management and possible AICD. I am told that patient pulled out the port/tube earlier today prior to being transferred. TRAVEL OUTSIDE OF THE [place] IN LAST 30 DAYS: No - Related Data Allergies/Adverse Reactions: prednisone [Prednisone] Allergy (Unknown, Verified 04/10/19 17:23) cephalexin [Cephalexin] Allergy (Verified 05/08/19 07:45) ciprofloxacin [From Cipro] Allergy (Verified 04/10/19 17:23) cortisone [Cortisone] Allergy (Verified 04/10/19 17:23) Penicillins Allergy (Verified 04/10/19 17:23) phenazopyridine [Phenazopyridine] Allergy (Verified 04/10/19 17:23) Sulfa (Sulfonamide Antibiotics) Allergy (Verified 04/10/19 17:23) sulfamethoxazole [From Bactrim] Allergy (Verified 04/10/19 17:23) tramadol HCl [From Ultram] Allergy (Verified 04/10/19 17:23) trimethoprim [From Bactrim] Allergy (Verified 04/10/19 17:23) Past Medical History - General Information source: Patient - Social History Smoking Status: Never Smoker Frequency of alcohol use: None Drug Abuse: None Lives with: Family Family History: CAD - Father, COPD - Brother, CVA - Mother, DM, Hypertension, Malignancy - 1 sister colon cancer and another sister lung cancer Patient has suicidal ideation: No Patient has homicidal ideation: No - Past Medical History Cardiac Medical History: Reports: Hx Atrial Fibrillation, Hx Congestive Heart F ailure, Hx Coronary Artery Disease - Has had a couple of stents placed in her arteries., Hx Heart Attack - 10/2014, Hx Hypercholesterolemia, Hx Hypertension Denies: Hx DVT, Hx Pulmonary Embolism Pulmonary Medical History: Reports: Hx Asthma, Hx COPD, Hx Pneumonia Neurological Medical History: Reports: 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 Denies: Hx Seizures Endocrine Medical History: Reports: Hx Graves' Disease. Denies: Hx Diabetes Mellitus Type 1, Hx Diabetes Mellitus Type 2, Hx Hyperthyroidism, Hx Hypothyroidism Renal/ Medical History: Reports: Hx Renal Insufficiency. Denies: Hx Peritoneal Dialysis Malignancy Medical History: Reports: Hx Skin Cancer GI Medical History: Reports: Hx Crohn's Disease, Hx Gastroesophageal Reflux Disease, Hx Hiatal Hernia, Hx Ulcer, Hx Ulcerative Colitis, Hx Colonoscopy. Denies: Hx Cirrhosis, Hx Hepatitis Musculoskeletal Medical History: Reports Hx Arthritis, Denies Hx Gout Skin Medical History: Denies Hx Eczema, Denies Hx Psoriasis Psychiatric Medical History: Reports: Hx Depression Infectious Medical History: Denies: Hx Hepatitis Past Surgical History: Reports: Hx Abdominal Surgery - hernia repair with mesh, Hx Cardiac Catheterization - with stents, Hx Cardiac Surgery - Stent, Hx Coronary Stent - x2, Hx Umbilical Hernia, Other - Skin cancer surgery - Immunizations Hx Diphtheria, Pertussis, Tetanus Vaccination: Yes Hx Pneumococcal Vaccination: 07/08/11 Review of Systems - Review of Systems Constitutional: No symptoms reported EENT: No symptoms reported Cardiovascular: No symptoms reported Respiratory: See HPI Gastrointestinal: No symptoms reported Genitourinary: No symptoms reported Female Genitourinary: No symptoms reported Musculoskeletal: No symptoms reported Skin: No symptoms reported Hematologic/Lymphatic: No symptoms reported Neurological/Psychological: No symptoms reported Physical Exam - Vital signs Vitals: Pulse 67 04/11/19 01:46 - Notes Notes: GENERAL: Alert, interacts well. No acute distress. Very talkative, sitting up, well-appearing HEAD: Normocephalic, atraumatic. EYES: Pupils equal, round, and reactive to light. Extraocular movements intact. ENT: Oral mucosa moist, tongue midline. Oropharynx unremarkable. Airway patent. NECK: Full range of motion. Supple. Trachea midline. LUNGS: Decreased breath sound bilaterally but breath sounds are present bilaterally. No wheezes, rales, rhonchi. No signs of respiratory distress. HEART: Regular rate and rhythm. ABDOMEN: Soft, non-tender. Non-distended. EXTREMITIES: Moves all 4 extremities spontaneously. No edema, normal radial and dorsalis pedis pulses bilaterally. No cyanosis. BACK: no cervical, thoracic, lumbar midline tenderness. No saddle anesthesia, normal distal neurovascular exam. Moves all extremities in full range of motion. NEUROLOGICAL: Alert and oriented x3. Normal speech. Cranial nerves II through XII grossly intact. PSYCH: Normal affect, normal mood. SKIN: Warm, dry, normal turgor. No rashes or lesions noted. Course - Re-evaluation Re-evalutation: On my evaluation patient is upset with the situation, loudly talking and somewhat irritable. She was calm down, allow me to evaluate her, she does have bilateral decreased breath sounds but she has a known history of COPD. No rales, no hypoxia on 2 L, denies shortness of breath, no signs of distress. Patient is alert and very oriented. Chest x-ray has already been performed, initial review shows COPD but no concerning effusion, pneumothorax, or other acute findings. Pending read. Chest x-ray showing trace pleural effusion, otherwise unremarkable. Based on patient's evaluation here patient is still stable for transfer. I discussed with Dr. Talamantes. We are calling [facility] back to see if patient's bed is still availa ble and if we can set transport back up. Dr. Talamantes recommends we fill out a new EMTALA which he signed, patient will be transferred again. 06/12/19 23:35 We have contacted [facility], patient is bed is still available and they are still expecting the patient. Patient was accepted by Dr. Mcnamara with Dr. Bowser attending. Patient is very eager to go. She was reevaluated at bedside, no significant change from prior. Patient states that she just "drank some ice water too fast and it made my stomach sick and I want something for nausea". Provided with Zofran. Transport team is about 15 minutes away, stable for transport. - Vital Signs Vital signs: Temp Pulse Resp BP Pulse Ox 97.9 F 90 17 142/77 H 98 06/13/19 00:16 06/13/19 00:16 06/13/19 00:16 06/13/19 00:16 06/13/19 00:16 Discharge - Discharge Clinical Impression: Decreased breath sounds, No complaints, Low output heart failure, Pleural effusion Condition: Stable Disposition: [facility] Referrals: RACHEL MEDRANO FNP [Primary Care Provider] - Follow up as needed
--- NOTE | 2019-06-12 22:47 | RADIOLOGY REPORT (SQ) ---
EXAM DESCRIPTION: XR CHEST 1 VIEW COMPLETED DATE/TME: 06/12/2019 00:00 CLINICAL HISTORY: 83 years, Female, sob COMPARISON: Multiple priors, most recent from earlier the same day NUMBER OF VIEWS: One TECHNIQUE: Single frontal view of the chest was obtained portably LIMITATIONS: None. FINDINGS: Cardiopericardial silhouette is enlarged. Mediastinal contours are stable. Bilateral perihilar opacity with vascular indistinctness is noted. Interstitial lines are noted about the periphery of both lungs. Suspect trace bilateral pleural effusions. No pneumothorax. IMPRESSION: Findings suggest mild interstitial edema along with suspected trace bilateral pleural effusions. copyright 2010 [employer]- All Rights Reserved
[2019-06-12 23:26] VITALS: BP 142/77
[2019-06-12] MEDS ORDERED: ONDANSETRON 4 MG TAB.RAPDIS PO ONE (23:34)
== END 2019-06-13 00:17 | disposition short-term general hospital (02) ==
LOC: ER 21:38
DX: J90 Pleural effusion, not elsewhere classified (principal); R06.02 Shortness of breath; I11.0 Hypertensive heart disease with heart failure; I50.9 Heart failure, unspecified; I48.91 Unspecified atrial fibrillation; Z88.0 Allergy status to penicillin; Z88.3 Allergy status to other anti-infective agents; I25.2 Old myocardial infarction
CPT/HCPCS: 99285; 71045; A9270; S0119

== ENCOUNTER 2019-08-06 04:06 | Inpatient (IN) | payer MEDICARE, OTHER ==
[2019-08-06 04:44] LABS: ABSOLUTE LYMPHOCYTES (AUTO) 0.5 10^3/uL (0.5-4.7); ABSOLUTE MONOCYTES (AUTO) 0.2 10^3/uL (0.1-1.4); ABSOLUTE NEUT (AUTO) 4.6 10^3/uL (1.7-8.2); BASOPHILS % (AUTO) 0.5 % (0-2); EOSINOPHILS % (AUTO) 0.6 % (0-6); HEMATOCRIT 25.8 % (36.0-47.0); HEMOGLOBIN 8.2 g/dL (12.0-15.5); LYMPHOCYTES % (AUTO) 9.5 % (13-45); MEAN CORPUSCULAR HEMOGLOBIN 27.5 pg (27.0-33.4); MEAN CORPUSCULAR VOLUME 86 fl (80-97); MONOCYTES % (AUTO) 4.3 % (3-13); PLATELET COUNT 247 10^3/uL (150-450); RED BLOOD COUNT 2.99 10^6/uL (3.72-5.28); RED CELL DISTRIBUTION WIDTH 16.5 % (11.5-14.0); SEGMENTED NEUTROPHILS % (AUTO) 85.1 % (42-78); TOTAL CELLS COUNTED % (AUTO) 100 %; WHITE BLOOD COUNT 5.5 10^3/uL (4.0-10.5)
--- NOTE | 2019-08-06 04:45 | ER Document Report ---
ED General - General Chief Complaint: Shortness Of Breath Stated Complaint: RAPID HEART RATE WEAKNESS Time Seen by Provider: 08/06/19 04:44 Primary Care Provider: RACHEL MEDRANO FNP [Primary Care Provider] - Follow up as needed TRAVEL OUTSIDE OF THE [place] IN LAST 30 DAYS: No - HPI Patient complains to provider of: shortness of breath Onset: Just prior to arrival Onset/Duration: Gradual Severity: Moderate Context: 83 year old female arrives from [place] with shortness of breath and elevated heart rate. She is known to have A fib and CHF along with chronic resp failure. 4 liters O2 all the time. HR noted at facility to be 160's. Reportedly no fever or recent illness. Aside from a dry mouth the pt does not have any complaints to me. Exacerbated by: Denies Relieved by: Denies - Related Data Allergies/Adverse Reactions: prednisone [Prednisone] Allergy (Unknown, Verified 04/10/19 17:23) cephalexin [Cephalexin] Allergy (Verified 05/08/19 07:45) ciprofloxacin [From Cipro] Allergy (Verified 04/10/19 17:23) cortisone [Cortisone] Allergy (Verified 04/10/19 17:23) Penicillins Allergy (Verified 04/10/19 17:23) phenazopyridine [Phenazopyridine] Allergy (Verified 04/10/19 17:23) Sulfa (Sulfonamide Antibiotics) Allergy (Verified 04/10/19 17:23) sulfamethoxazole [From Bactrim] Allergy (Verified 04/10/19 17:23) tramadol HCl [From Ultram] Allergy (Verified 04/10/19 17:23) trimethoprim [From Bactrim] Allergy (Verified 04/10/19 17:23) Home Medications: seee chart Past Medical History - General Information source: Patient - Social History Smoking Status: Unknown if Ever Smoked Family History: CAD - Father, COPD - Brother, CVA - Mother, DM, Hypertension, Malignancy - 1 sister colon cancer and another sister lung cancer Patient has suicidal ideation: No Patient has homicidal ideation: No - Past Medical History Cardiac Medical History: Reports: Hx Atrial Fibrillation, Hx Congestive Heart Failure, Hx Coronary Artery Disease - Has had a couple of stents placed in her arteries., Hx Heart Attack - 10/2014, Hx Hypercholesterolemia, Hx Hypertension Denies: Hx DVT, Hx Pulmonary Embolism Pulmonary Medical History: Reports: Hx Asthma, Hx COPD, Hx Pneumonia Neurological Medical History: Reports: 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 Denies: Hx Seizures Endocrine Medical History: Reports: Hx Graves' Disease. Denies: Hx Diabetes Mellitus Type 1, Hx Diabetes Mellitus Type 2, Hx Hyperthyroidism, Hx Hypothyroi dism Renal/ Medical History: Reports: Hx Renal Insufficiency. Denies: Hx Peritoneal Dialysis Malignancy Medical History: Reports: Hx Skin Cancer GI Medical History: Reports: Hx Crohn's Disease, Hx Gastroesophageal Reflux D isease, Hx Hiatal Hernia, Hx Ulcer, Hx Ulcerative Colitis, Hx Colonoscopy. Denies: Hx Cirrhosis, Hx Hepatitis Musculoskeletal Medical History: Reports Hx Arthritis, Denies Hx Gout Skin Medical History: Denies Hx Eczema, Denies Hx Psoriasis Psychiatric Medical History: Reports: Hx Depression Infectious Medical History: Denies: Hx Hepatitis Past Surgical History: Reports: Hx Abdominal Surgery - hernia repair with mesh, Hx Cardiac Catheterization - with stents, Hx Cardiac Surgery - Stent, Hx Coronary Stent - x2, Hx Umbilical Hernia, Other - Skin cancer surgery - Immunizations Hx Diphtheria, Pertussis, Tetanus Vaccination: Yes Hx Pneumococcal Vaccination: 07/08/11 Review of Systems - Review of Systems Constitutional: No symptoms reported EENT: No symptoms reported Cardiovascular: No symptoms reported Respiratory: No symptoms reported Gastrointestinal: No symptoms reported Genitourinary: No symptoms reported Female Genitourinary: No symptoms reported Musculoskeletal: No symptoms reported Skin: No symptoms reported Hematologic/Lymphatic: No symptoms reported Neurological/Psychological: No symptoms reported Physical Exam - Vital signs Vitals: Resp Pulse Ox 28 H 87 L 08/06/19 04:16 08/06/19 04:16 Interpretation: Normal - General General appearance: Appears well, Alert - HEENT Head: Normocephalic, Atraumatic Eyes: Normal Pupils: PERRL - Respiratory Respiratory status: No respiratory distress Chest status: Nontender Breath sounds: Normal Chest palpation: Normal - Cardiovascular Rhythm: Irregularly irregular, Tachycardia Heart sounds: No: Normal auscultation Murmur: No - Abdominal Inspection: Normal Distension: No distension Bowel sounds: Normal Tenderness: Nontender Organomegaly: No organomegaly - Back Back: Normal, Nontender - Extremities General upper extremity: Normal inspection, Nontender, Normal color, Normal ROM, Normal temperature General lower extremity: Normal inspection, Nontender, Normal color, Normal ROM, Normal temperature, Normal weight bearing. No: Dell's sign - Neurological Neuro grossly intact: Yes Cognition: Normal Orientation: AAOx4 [place] Coma Scale Eye Opening: Spontaneous Tiny Coma Scale Verbal: Oriented [place] Coma Scale Motor: Obeys Commands [place] Coma Scale Total: 15 Speech: Normal Motor strength normal: LUE, RUE, LLE, RLE Sensory: Normal - Psychological Associated symptoms: Normal affect, Normal mood - Skin Skin Temperature: Warm Skin Moisture: Dry Skin Color: Normal Course - Vital Signs Vital signs: Temp Pulse Resp BP Pulse Ox 98.2 F 77 20 130/70 H 100 08/06/19 04:22 08/06/19 05:42 08/06/19 05:01 08/06/19 05:42 08/06/19 05:01 - Laboratory Result Diagrams: 08/06/19 04:25 08/06/19 04:25 Laboratory results interpreted by me: 08/06/19 08/06/19 08/06/19 04:25 04:25 04:25 RBC 2.99 L Hgb 8.2 L Hct 25.8 L RDW 16.5 H Lymph % (Auto) 9.5 L Seg Neutrophils % 85.1 H PT 15.9 H BUN 24 H Est GFR (MDRD) Non-Af 58 L Glucose 131 H Magnesium AST 38 H Creatine Kinase 29 L NT-Pro-B Natriuret Pep Total Protein 5.8 L Albumin 3.1 L 08/06/19 08/06/19 04:25 04:25 RBC Hgb Hct RDW Lymph % (Auto) Seg Neutrophils % PT BUN Est GFR (MDRD) Non-Af Glucose Magnesium 2.4 H AST Creatine Kinase NT-Pro-B Natriuret Pep 14153 H Total Protein Albumin - Diagnostic Test Radiology reviewed: Reports reviewed Critical Care Note - Critical Care Note Total time excluding time spent on procedures (mins): 30 Discharge - Discharge Clinical Impression: Atrial fibrillation with rapid ventricular response Anemia Qualifiers: Anemia type: unspecified type Qualified Code(s): D64.9 - Anemia, unspecified Chronic respiratory failure Qualifiers: Respiratory failure complication: unspecified whether with hypoxia or hypercapnia Qualified Code(s): J96.10 - Chronic respiratory failure, unspecified whether with hypoxia or hypercapnia Condition: Fair Disposition: ADMITTED INPATIENT Admitting Provider: Patrick (Hospitalist) Unit Admitted: IMCU Referrals: RACHEL MEDRANO FNP [Primary Care Provider] - Follow up as needed
[2019-08-06 04:47] LABS: INTERNATIONAL RATION (INR) 1.26; PROTHROMBIN TIME 15.9 SEC (11.4-15.4)
[2019-08-06 04:55] LABS: ALBUMIN 3.1 g/dL (3.5-5.0); ALKALINE PHOSPHATASE 76 U/L (38-126); ANION GAP 8 (5-19); ASPARTATE AMINO TRANSFERASE 38 U/L (14-36); BILIRUBIN,DIRECT 0.3 mg/dL (0.0-0.4); BILIRUBIN,TOTAL 0.3 mg/dL (0.2-1.3); BLOOD UREA NITROGEN 24 mg/dL (7-20); CALCIUM 8.6 mg/dL (8.4-10.2); CARBON DIOXIDE 29 mmol/L (22-30); CHLORIDE 103 mmol/L (98-107); CREATINE KINASE 29 U/L (30-135); GLUCOSE 131 mg/dL (75-110); POTASSIUM 4.1 mmol/L (3.6-5.0); TOTAL PROTEIN 5.8 g/dL (6.3-8.2)
--- NOTE | 2019-08-06 05:07 | RADIOLOGY REPORT (SQ) ---
Chest one view on 08/06/2019 at 4:46 AM CLINICAL INDICATION: Irregular heartbeat COMPARISON: 06/12/2019 FINDINGS: Cardiomegaly is noted. There are small bilateral pleural effusions. There has been development of bilateral lower lung opacities consistent with atelectasis and/or pneumonia. Vascular calcification is noted in the aorta. No bony abnormality is noted. IMPRESSION: Developing bilateral lower lung opacities consistent with bilateral pleural effusions and bilateral lower lung atelectasis and/or pneumonia.
[2019-08-06 05:13] LABS: CREATINE KINASE MB 0.9 ng/mL (<4.55); TROPONIN I 0.019 ng/mL
[2019-08-06] MEDS ORDERED: DILTIAZEM HCL INJ 25 MG/5 ML VIAL IV ONE (05:19)
[2019-08-06] MEDS ORDERED: FUROSEMIDE INJ/PF 20 MG/2 ML SDV IV ONE (05:36)
[2019-08-06] MEDS ORDERED: ACETAMINOPHEN 325 MG TABLET PO PRN (05:49)
[2019-08-06] MEDS ORDERED: MAG HYDROX/AL HYDROX/SIMETH SUSP 30 ML UDCUP PO PRN (05:49)
[2019-08-06] MEDS ORDERED: DILTIAZEM HCL/D5W 125 MG/125 ML RTUINJ IV PRN (05:49)
[2019-08-06] MEDS ORDERED: HEPARIN SOD (PORCINE) 5,000 UNIT/ML 1 ML VIAL SUBCUT SCH (06:00)
[2019-08-06] MEDS ORDERED: METOPROLOL TARTRATE 25 MG TABLET PO ONE ×2 (06:27→10:22)
--- NOTE | 2019-08-06 06:47 | PDOC H&P ---
History of Present Illness Admission Date/PCP: 08/06/19 06:14 CARMELA RESENDIZ Patient complains of: Shortness of breath and tachycardia History of Present Illness: CINTHYA DANIELLE is a 83 year old female, [facility] resident with a past medical history of O2 dependent COPD, tobacco dependence, coronary artery disease, dyslipidemia, hypertension, iron deficiency anemia, ulcerative colitis, depression and A. fib on Eliquis. [facility] with shortness of breath and tachycardia. In the emergency department she is found to have a A. fib with RVR in the 160s. She started on IV Cardizem and referred to the hospitalist for admission. Patient denies chest pain nausea vomiting diaphoresis. She is a poor historian and unable to provide additional history. She is specifically unaware of any changes in her medications Past Medical History Cardiac Medical History: Reports: Atrial Fibrillation, Congestive Heart Failure, Coronary Artery Disease - Has had a couple of stents placed in her arteries., Myocardial Infarction - 10/2014, Hyperlipidema, Hypertension Denies: DVT, Pulmonary Embolism Pulmonary Medical History: Reports: Asthma, Chronic Obstructive Pulmonary Disease (COPD), Pneumonia Neurological Medical History: Denies: Seizures Endocrine Medical History: Denies: Diabetes Mellitus Type 1, Diabetes Mellitus Type 2, Hyperthyroidism, Hypothyroidism Malignancy Medical History: Reports: Skin Cancer GI Medical History: Reports: Crohn's Disease, Gastroesophageal Reflux Disease, Hiatal Hernia, Ulcerative Colitis Denies: Cirrhosis, Hepatitis Musculoskeltal Medical History: Reports: Arthritis Denies: Gout Skin Medical History: Denies: Eczema, Psoriasis Psychiatric Medical History: Reports: Depression Hematology: Reports: Anemia - Chronic Denies: Bleeding Tendencies Past Surgical History Past Surgical History: Reports: Cardiac Catheterization - with stents, Coronary Stent - x2, Other - Skin cancer surgery Social History Information Source: Patient Lives with: Group Home Smoking Status: Unknown if Ever Smoked Frequency of Alcohol Use: None Hx Recreational Drug Use: No Drugs: None Hx Prescription Drug Abuse: No - Advance Directive Resuscitation Status: Full Code Family History Family History: CAD - Father, COPD - Brother, CVA - Mother, DM, Hypertension, Malignancy - 1 sister colon cancer and another sister lung cancer Parental Family History Reviewed: No - Unobtainable Children Family History Reviewed: No - Unobtainable Sibling(s) Family History Reviewed.: No - Unobtainable Medication/Allergy Home Medications: Albuterol Sulfate [Proair Hfa Inhalation Aerosol 8.5 gm Mdi] 400 puff IH Q6HP PRN 06/03/19 Apixaban [Eliquis 5 mg Tablet] 5 mg PO BID 06/03/19 Atorvastatin Calcium [Lipitor 20 mg Tablet] 20 mg PO QHS 06/03/19 Calcitriol [Rocaltrol] 0.25 mcg PO MOWEFR@1000 06/03/19 Duloxetine HCl [Cymbalta 20 Mg Capsule.Dr] 20 mg PO DAILY 06/03/19 Fluticasone/Vilanterol [Breo 200-25 Mcg Ellipta 14 Dose/Dpi] 1 inh IH DAILY 06/03/19 Furosemide [Lasix 20 mg Tablet] 20 mg PO BID 06/03/19 Methylprednisolone [Medrol Dosepack (4 mg/Tab) 21 Tab/Dosepak] 4 mg PO ASDIR PRN 06/03/19 Metoprolol Tartrate [Lopressor 50 mg Tablet] 50 mg PO BID 06/03/19 Oxybutynin Chloride [Ditropan Xl] 10 mg PO DAILY 06/03/19 Potassium Chloride 20 meq PO DAILY 06/03/19 Allergies/Adverse Reactions: prednisone [Prednisone] Allergy (Unknown, Verified 04/10/19 17:23) cephalexin [Cephalexin] Allergy (Verified 05/08/19 07:45) ciprofloxacin [From Cipro] Allergy (Verified 04/10/19 17:23) cortisone [Cortisone] Allergy (Verified 04/10/19 17:23) Penicillins Allergy (Verified 04/10/19 17:23) phenazopyridine [Phenazopyridine] Allergy (Verified 04/10/19 17:23) Sulfa (Sulfonamide Antibiotics) Allergy (Verified 04/10/19 17:23) sulfamethoxazole [From Bactrim] Allergy (Verified 04/10/19 17:23) tramadol HCl [From Ultram] Allergy (Verified 04/10/19 17:23) trimethoprim [From Bactrim] Allergy (Verified 04/10/19 17:23) Review of Systems ROS unobtainable: Due to mental status - Poor historian Physical Exam Vital Signs: Temp Pulse Resp BP Pulse Ox 98.2 F 77 20 130/70 H 100 08/06/19 04:22 08/06/19 05:42 08/06/19 05:01 08/06/19 05:42 08/06/19 05:01 Intake & Output 08/04/19 08/05/19 08/06/19 11:59 11:59 11:59 Weight 67.7 kg General appearance: PRESENT: cooperative, well-developed, well-nourished Head exam: PRESENT: atraumatic, normocephalic Eye exam: PRESENT: conjunctiva pink, EOMI, PERRLA. ABSENT: scleral icterus Ear exam: PRESENT: normal external ear exam Mouth exam: PRESENT: moist, tongue midline Neck exam: ABSENT: carotid bruit, JVD, lymphadenopathy, thyromegaly Respiratory exam: PRESENT: clear to auscultation emma. ABSENT: rales, rhonchi, wheezes Cardiovascular exam: PRESENT: RRR, +S1, +S2, tachycardia Pulses: PRESENT: normal dorsalis pedis pul Vascular exam: PRESENT: normal capillary refill GI/Abdominal exam: PRESENT: normal bowel sounds, soft. ABSENT: distended, guarding, mass, organolmegaly, rebound, tenderness Rectal exam: PRESENT: deferred Extremities exam: PRESENT: full ROM. ABSENT: calf tenderness, clubbing, pedal edema Neurological exam: PRESENT: alert, awake, oriented to person, CN II-XII grossly intact. ABSENT: motor sensory deficit Psychiatric exam: PRESENT: appropriate affect, normal mood. ABSENT: homicidal ideation, suicidal ideation Skin exam: PRESENT: dry, intact, warm. ABSENT: cyanosis, rash Results Laboratory Results: 08/06/19 04:25 08/06/19 04:25 08/06/19 08/06/19 08/06/19 04:25 04:25 04:25 WBC 5.5 RBC 2.99 L Hgb 8.2 L Hct 25.8 L MCV 86 MCH 27.5 MCHC 32.0 RDW 16.5 H Plt Count 247 Seg Neutrophils % 85.1 H Sodium 140.1 Potassium 4.1 Chloride 103 Carbon Dioxide 29 Anion Gap 8 BUN 24 H Creatinine 0.93 Est GFR ( Amer) > 60 Glucose 131 H Calcium 8.6 Magnesium Total Bilirubin 0.3 AST 38 H Alkaline Phosphatase 76 Total Protein 5.8 L Albumin 3.1 L TSH 2.51 08/06/19 04:25 WBC RBC Hgb Hct MCV MCH MCHC RDW Plt Count Seg Neutrophils % Sodium Potassium Chloride Carbon Dioxide Anion Gap BUN Creatinine Est GFR ( Amer) Glucose Calcium Magnesium 2.4 H Total Bilirubin AST Alkaline Phosphatase Total Protein Albumin TSH 08/06/19 08/06/19 08/06/19 04:25 04:25 04:25 Creatine Kinase 29 L CK-MB (CK-2) 0.90 Troponin I 0.019 NT-Pro-B Natriuret Pep 81111 H Impressions: Chest X-Ray 08/06/19 00:00 IMPRESSION: Developing bilateral lower lung opacities consistent with bilateral pleural effusions and bilateral lower lung atelectasis and/or pneumonia. Assessment and Plan - Diagnosis (1) Atrial fibrillation with rapid ventricular response Is this a current diagnosis for this admission?: Yes Plan: Unclear cause, IMCU observation, resume p.o. metoprolol, IV Cardizem PRN, follow-up cardiac enzymes. (2) Anemia Qualifiers: Anemia type: iron deficiency Is this a current diagnosis for this admission?: Yes Plan: P.o. and IV iron ordered, follow-up CBC (3) CHF (congestive heart failure) Qualifiers: Heart failure type: unspecified Heart failure chronicity: acute on chronic Qualified Code(s): I50.9 - Heart failure, unspecified Is this a current diagnosis for this admission?: Yes Plan: Multifactorial secondary to high output failure of anemia and A. fib with RVR. - Time Time Spent with patient: 25-34 minutes - Inpatient Certification Medical Necessity: Need Close Monitoring Due to Risk of Patient Decompensation
[2019-08-06] MEDS ORDERED: IRON SUCROSE COMPLEX INJ/PF 100 MG/5 ML SDV IV ONE ×3 (08:00→14:30)
[2019-08-06] MEDS ORDERED: METOPROLOL TARTRATE 25 MG TABLET PO SCH ×2 (10:00→22:00)
[2019-08-06] MEDS ORDERED: IRON POLYSACCHARIDES COMPLEX 150 MG CAPSULE PO SCH (10:00)
[2019-08-06] MEDS ORDERED: ASPIRIN 81 MG TABLET, ENT COATED PO SCH (10:00)
[2019-08-06] MEDS ORDERED: INFLUENZA QUAD (6MOS+) 2019-20 VAC 0.5 ML SYR IM ONE (10:46)
[2019-08-06] MEDS: FUROSEMIDE INJ/PF 20 MG/2 ML SDV IV SCH ×2 (11:25→21:09)
[2019-08-06] MEDS: POTASSIUM CHLORIDE 10 MEQ TABLET.ER PO SCH ×2 (11:25→21:08)
[2019-08-06] MEDS: DOCUSATE SODIUM 100 MG CAPSULE PO SCH (11:26)
[2019-08-06] MEDS ORDERED: IPRATROPIUM/ALBUTEROL 0.5-2.5 MG/3 ML AMPUL NEB PRN (12:12)
--- NOTE | 2019-08-06 14:22 | PDOC PROGRESS REPORT ---
Subjective Progress Note for:: 08/06/19 Subjective:: CINTHYA DANIELLE is a 83 year old female, [place] resident with a past medical history of O2 dependent COPD, tobacco dependence, coronary artery disease, dyslipidemia, hypertension, iron deficiency anemia, ulcerative colitis, depression and A. 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 The patient was seen on morning rounds with her [id number] present while eating her lunch. She was found resting in bed, comfortably, on supplemental oxygen via nasal cannula. She is alert and oriented x4. Patient family reports that she has been between inpatient hospitals at [facility], [facility], and [facility], and [facility], since early May. She has not been well enough to be home during this time due to recurrent CHF exacerbations with pleural effusions. Family members report they believe that she had a cardiac catheterization and stent placed while in [facility]. She also reports that the patient had a chest tube for management of pleural effusion while at [place]. I did inform patient and family that we would benefit from obtaining records from both of these hospital admissions. The patient reports that she was sent to the emergency department from [facility] where she is a short-term resident for report of elevated heart rate. She states that she was asymptomatic at the time of her transfer to the emergency department. Today, she denies fever, chills, chest pain, palpitations, dyspnea, orthopnea, abdominal pain, nausea vomiting and diarrhea. The patient states "I want to live long enough to go home." During her previous hospitalization (I was the provider that helped to arrange transfer to [facility]) the patient had indicated that she was considering transitioning to palliative care services with limited medication and procedural interventions. Therefore, I gently reintroduce the concept of self determination regarding repeat admissions, medications, procedures, etc. I did mention that the patient was appropriate for palliative care and hospice services in which case arrangements could be made for her to discharge to home. And patient had no other questions or concerns at this time. No concerns per nursing Reason For Visit: AFIB HEART FAILURE Physical Exam Vital Signs: Temp Pulse Resp BP Pulse Ox 98.2 F 98 22 H 166/85 H 97 08/06/19 09:31 08/06/19 09:31 08/06/19 09:31 08/06/19 09:31 08/06/19 09:31 Intake & Output 08/05/19 08/06/19 08/07/19 06:59 06:59 06:59 Weight 67.7 kg 67.7 kg General appearance: PRESENT: no acute distress, cooperative, thin, well- developed, well-nourished Head exam: PRESENT: atraumatic, normocephalic Eye exam: PRESENT: conjunctiva pink, EOMI, PERRLA. ABSENT: scleral icterus Ear exam: PRESENT: normal external ear exam Mouth exam: PRESENT: moist, tongue midline Neck exam: ABSENT: carotid bruit, JVD, lymphadenopathy, thyromegaly Respiratory exam: PRESENT: crackles - Bibasilar, prolonged expiratory phas, symmetrical, unlabored, other - Supplemental oxygen by nasal cannula. ABSENT: rales, rhonchi, wheezes Cardiovascular exam: PRESENT: RRR, +S1, +S2, systolic murmur. ABSENT: diastolic murmur, rubs Pulses: PRESENT: normal dorsalis pedis pul Vascular exam: PRESENT: normal capillary refill GI/Abdominal exam: PRESENT: normal bowel sounds, soft. ABSENT: distended, guar ding, mass, organolmegaly, rebound, tenderness Rectal exam: PRESENT: deferred Extremities exam: PRESENT: full ROM. ABSENT: calf tenderness, clubbing, pedal edema Neurological exam: PRESENT: alert, awake, oriented to person, oriented to place, oriented to time, oriented to situation, CN II-XII grossly intact. ABSENT: motor sensory deficit Psychiatric exam: PRESENT: appropriate affect, normal mood. ABSENT: homicidal ideation, suicidal ideation Skin exam: PRESENT: dry, intact, warm. ABSENT: cyanosis, rash Results Laboratory Results: 08/06/19 04:25 08/06/19 04:25 08/06/19 08/06/19 08/06/19 04:25 04:25 04:25 WBC 5.5 RBC 2.99 L Hgb 8.2 L Hct 25.8 L MCV 86 MCH 27.5 MCHC 32.0 RDW 16.5 H Plt Count 247 Seg Neutrophils % 85.1 H Sodium 140.1 Potassium 4.1 Chloride 103 Carbon Dioxide 29 Anion Gap 8 BUN 24 H Creatinine 0.93 Est GFR ( Amer) > 60 Glucose 131 H Calcium 8.6 Magnesium Total Bilirubin 0.3 AST 38 H Alkaline Phosphatase 76 Total Protein 5.8 L Albumin 3.1 L TSH 2.51 08/06/19 04:25 WBC RBC Hgb Hct MCV MCH MCHC RDW Plt Count Seg Neutrophils % Sodium Potassium Chloride Carbon Dioxide Anion Gap BUN Creatinine Est GFR ( Amer) Glucose Calcium Magnesium 2.4 H Total Bilirubin AST Alkaline Phosphatase Total Protein Albumin TSH 08/06/19 08/06/19 08/06/19 04:25 04:25 04:25 Creatine Kinase 29 L CK-MB (CK-2) 0.90 Troponin I 0.019 NT-Pro-B Natriuret Pep 65791 H 08/06/19 07:08 Creatine Kinase CK-MB (CK-2) Troponin I 0.022 NT-Pro-B Natriuret Pep Impressions: Chest X-Ray 08/06/19 00:00 IMPRESSION: Developing bilateral lower lung opacities consistent with bilateral pleural effusions and bilateral lower lung atelectasis and/or pneumonia. Assessment and Plan - Diagnosis (1) Atrial fibrillation with rapid ventricular response Is this a current diagnosis for this admission?: Yes Plan: Improved; heart rate 90s to 120 while at rest Unclear cause. Patient is admitted to [facility] on continuous cardiac telemetry. We will increase home dose metoprolol to 25 mg twice daily. Continue renally dosed Eliquis. Cardiology is consulted (2) Anemia Qualifiers: Anemia type: iron deficiency Is this a current diagnosis for this admission?: Yes Plan: Hemoglobin 8.2; near baseline. No evidence of active bleeding at this time. Received p.o. and IV iron We will follow CBC (3) CHF (congestive heart failure) Qualifiers: Heart failure type: unspecified Heart failure chronicity: acute on chronic Qualified Code(s): I50.9 - Heart failure, unspecified Is this a current diagnosis for this admission?: Yes Plan: Echocardiogram (06/26) showed LVEF 35% Patient was shortly transfer to [facility] where family members believe that she had cardiac cath with stenting. She is also been admitted to [facility] since that time. We will request records from outside hospitals. Continue metoprolol We will resume low-dose Entresto Continue to diurese with IV furosemide Cardiac diet, fluid restricted Daily weights and strict I's and O's Cardiology is consulted (4) COPD (chronic obstructive pulmonary disease) Qualifiers: COPD type: unspecified COPD Qualified Code(s): J44.9 - Chronic obstructive pulmonary disease, unspecified Is this a current diagnosis for this admission?: Yes Plan: Stable and without exacerbation at this time Continue supplemental oxygen to maintain saturations greater than 89%; patient is home O2 dependent Continue Symbicort As needed nebulizer treatments No indications for antibiotic or steroid therapy at this time (5) Chronic respiratory failure Qualifiers: Respiratory failure complication: hypoxia Qualified Code(s): J96.11 - Chronic respiratory failure with hypoxia Is this a current diagnosis for this admission?: Yes Plan: Continue supplemental oxygen as needed. Optimize cardiac output. Management of chronic COPD as above. (6) Depression Is this a current diagnosis for this admission?: Yes Plan: Continue home dose Cymbalta (7) GERD (gastroesophageal reflux disease) Qualifiers: Esophagitis presence: without esophagitis Qualified Code(s): K21.9 - Gastro-esophageal reflux disease without esophagitis Is this a current diagnosis for this admission?: Yes Plan: PPI - Time Time Spent with patient: 35 or more minutes Medications reviewed and adjusted accordingly: Yes Anticipated discharge: Home with Homehealth Within: within 48 hours
[2019-08-06] MEDS ORDERED: PHENOL/SODIUM PHENOLATE 100 SPRAY/177 ML BOTTLE PO PRN (15:49)
--- NOTE | 2019-08-06 19:23 | PDOC CONSULTATION ---
Consultation Consult Date: 08/06/19 Attending physician:: DEBORAH MORALES Provider Consulted: PREET MARTINEZ Consult reason:: CHF and cardiomyopathy History of Present Illness Admission Date/PCP: 08/06/19 06:14 CARMELA RESENDIZ Patient complains of: Patient admitted with shortness of breath and noted to be in CHF. She has history of cardiomyopathy. History of Present Illness: CINTHYA DANIELLE is a 83 year old female, well-known to me from previous consultation in the hospital. She never really followed up with me in the office. Patient has known history of coronary artery disease, ischemic cardiomyopathy. Last echocardiogram in June showed depressed LVEF. Patient currently comfortable. She is denying any chest pain. Lab results were reviewed. Past Medical History Cardiac Medical History: Reports: Atrial Fibrillation, Congestive Heart Failure, Coronary Artery Disease - Has had a couple of stents placed in her arteries., Myocardial Infarction - 10/2014, Hyperlipidema, Hypertension Denies: DVT, Pulmonary Embolism Pulmonary Medical History: Reports: Asthma, Chronic Obstructive Pulmonary Disease (COPD), Pneumonia Neurological Medical History: Denies: Seizures Endocrine Medical History: Denies: Diabetes Mellitus Type 1, Diabetes Mellitus Type 2, Hyperthyroidism, Hypothyroidism Malignancy Medical History: Reports: Skin Cancer GI Medical History: Reports: Crohn's Disease, Gastroesophageal Reflux Disease, Hiatal Hernia, Ulcerative Colitis Denies: Cirrhosis, Hepatitis Musculoskeltal Medical History: Reports: Arthritis Denies: Gout Skin Medical History: Denies: Eczema, Psoriasis Psychiatric Medical History: Reports: Depression Hematology: Reports: Anemia - Chronic Denies: Bleeding Tendencies Past Surgical History Past Surgical History: Reports: Cardiac Catheterization - with stents, Coronary Stent - x2, Other - Skin cancer surgery Social History Information Source: Patient Lives with: Longterm Smoking Status: Unknown if Ever Smoked Frequency of Alcohol Use: None Hx Recreational Drug Use: No Drugs: None Hx Prescription Drug Abuse: No - Advance Directive Resuscitation Status: Full Code Family History Family History: CAD - Father, COPD - Brother, CVA - Mother, DM, Hypertension, Malignancy - 1 sister colon cancer and another sister lung cancer Parental Family History Reviewed: Yes Children Family History Reviewed: Yes Sibling(s) Family History Reviewed.: Yes Medication/Allergy Home Medications: Duloxetine HCl [Cymbalta 20 Mg Capsule.Dr] 20 mg PO DAILY 06/03/19 Oxybutynin Chloride [Ditropan Xl] 10 mg PO DAILY 06/03/19 Acetaminophen [Tylenol] 650 mg PO Q4HP PRN 08/06/19 Apixaban [Eliquis 2.5 mg Tablet] 2.5 mg PO QPM 08/06/19 Budesonide/Formoterol Fumarate [Symbicort Hfa 160-4.5 Mcg Inhaler 6 gm] 2 puff IH Q12 08/06/19 Calcitriol [Rocaltrol 0.25 Mcg Capsule] 0.25 mcg PO MOWEFR@1000 08/06/19 Clopidogrel Bisulfate [Plavix 75 mg Tablet] 75 mg PO DAILY 08/06/19 Ferrous Sulfate [Feosol 325 mg Tablet] 325 mg PO DAILY 08/06/19 Furosemide [Lasix 40 mg Tablet] 40 mg PO QAM 08/06/19 Ipratropium/Albuterol Sulfate [Duoneb 3 ml Ampul] 3 ml NEB RTQ4HP PRN 08/06/19 Lidocaine [Lidoderm 5% (700 mg) Transdermal Patch] 1 patch TP DAILY MDD LOWER BACK 08/06/19 Magnesium Oxide [Mag-Ox 400 mg Tablet] 400 mg PO DAILY 08/06/19 Melatonin [Melatonin 3 mg Tablet] 6 mg PO HSP PRN 08/06/19 Mesalamine [Lialda] 2.4 gm PO DAILY 08/06/19 Metoprolol Tartrate [Lopressor 25 mg Tablet] 6.25 mg PO Q12 08/06/19 Omeprazole 20 mg PO DAILY 08/06/19 Pantoprazole Sodium [Protonix [address] Tablet] 40 mg PO QHS 08/06/19 Rosuvastatin Calcium [Crestor] 10 mg PO DAILY 08/06/19 Sacubitril/Valsartan [Entresto 49 mg/51 mg Tablet] 1 tab PO Q12 08/06/19 Allergies/Adverse Reactions: prednisone [Prednisone] Allergy (Unknown, Verified 04/10/19 17:23) cephalexin [Cephalexin] Allergy (Verified 05/08/19 07:45) ciprofloxacin [From Cipro] Allergy (Verified 04/10/19 17:23) cortisone [Cortisone] Allergy (Verified 04/10/19 17:23) Penicillins Allergy (Verified 04/10/19 17:23) phenazopyridine [Phenazopyridine] Allergy (Verified 04/10/19 17:23) Sulfa (Sulfonamide Antibiotics) Allergy (Verified 04/10/19 17:23) sulfamethoxazole [From Bactrim] Allergy (Verified 04/10/19 17:23) tramadol HCl [From Ultram] Allergy (Verified 04/10/19 17:23) trimethoprim [From Bactrim] Allergy (Verified 04/10/19 17:23) Review of Systems Review of Systems: Please see history of present illness and past medical history as wall. Constitutional: No fever or chills reported. Head : No recent chronic headaches, recent head injury. Eyes: No recent eye pain, diplopia, redness, discharge, acute visual changes. Ears: No recent chronic ear pain, acute hearing loss, ear discharge. Oral cavity: No recent ulcerations, bleeding, oral cavity discomfort. Neck: No recent acute neck pain reported. Hematologic: No recent easy bruising or bleeding. Lymphatic: No recent lymph node enlargement reported. Cardiovascular system review: See history of present illness. Respiratory system review: No hemoptysis or blood clots in the lungs reported. Mild Shortness of breath on exertion Gastrointestinal system review: Negative for any recent acute hematemesis, melena. Genitourinary system review: No recent acute or chronic hematuria, flank pain, UTI etc. reported. Skin system review: Negative for any recent abnormal bruising, no rash, no pruritus reported. Neurologic: No prior history of strokes, mini strokes, seizure disorder. Psychologic: No history of major psychosis or major depression reported. Musculoskeletal: Minor aches and pains reported. No acute joint swelling reported. Endocrine: No recent polyuria, polydipsia, recent heat or cold intolerance. Physical Exam Vital Signs: Temp Pulse Resp BP Pulse Ox 98.1 F 100 18 144/122 H 97 08/06/19 11:47 08/06/19 11:47 08/06/19 11:47 08/06/19 11:47 08/06/19 11:47 Intake & Output 08/05/19 08/06/19 08/07/19 06:59 06:59 06:59 Intake Total 360 Balance 360 Weight 67.7 kg 67.7 kg Exam: GENERAL: well-nourished and in no acute distress. Alert and oriented x3 HEAD: Atraumatic, normocephalic. EYES: HARI, sclera anicteric, conjunctiva are normal. ENT: Moist mucous membranes. No oral ulcerations or bleeding gums noted. No obvious ear, nose or throat abnormalities noted. NECK: supple without lymphadenopathy. Trachea is central. No cervical or axillary lymphadenopathy noted. Carotids are 2+, JVD WNL LUNGS: Bibasilar fine crackles noted with few bilateral wheezes rales or rhonchi noted. No significant dullness noted on percussion. CHEST: Palpation of the chest wall shows no significant chest wall tenderness. 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 ABDOMEN: Soft, no significant tenderness appreciated, normoactive bowel sounds. No guarding, no rebound. No rigidity noted . No masses appreciated. EXTREMITIES: Pedal pulses are 1-2+, no calf tenderness noted. No clubbing or cya nosis. 2+ pedal edema noted NEUROLOGICAL: Focused neurological exam showed no significant neurologic deficit. Normal speech, no focal weakness appreciated. PSYCH: Normal mood, normal affect. Judgment and insight within normal limits. SKIN: No significant ecchymosis, skin is noted to be warm. MUSCULOSKELETAL EXAM: No significant acute joint swelling noted. Results Laboratory Results: 08/06/19 04:25 08/06/19 04:25 08/06/19 08/06/19 08/06/19 04:25 04:25 04:25 WBC 5.5 RBC 2.99 L Hgb 8.2 L Hct 25.8 L MCV 86 MCH 27.5 MCHC 32.0 RDW 16.5 H Plt Count 247 Seg Neutrophils % 85.1 H Sodium 140.1 Potassium 4.1 Chloride 103 Carbon Dioxide 29 Anion Gap 8 BUN 24 H Creatinine 0.93 Est GFR ( Amer) > 60 Glucose 131 H Calcium 8.6 Magnesium Total Bilirubin 0.3 AST 38 H Alkaline Phosphatase 76 Total Protein 5.8 L Albumin 3.1 L TSH 2.51 08/06/19 04:25 WBC RBC Hgb Hct MCV MCH MCHC RDW Plt Count Seg Neutrophils % Sodium Potassium Chloride Carbon Dioxide Anion Gap BUN Creatinine Est GFR ( Amer) Glucose Calcium Magnesium 2.4 H Total Bilirubin AST Alkaline Phosphatase Total Protein Albumin TSH 08/06/19 08/06/19 08/06/19 04:25 04:25 04:25 Creatine Kinase 29 L CK-MB (CK-2) 0.90 Troponin I 0.019 NT-Pro-B Natriuret Pep [id number] H 08/06/19 08/06/19 08/06/19 07:08 13:44 17:46 Creatine Kinase CK-MB (CK-2) Troponin I 0.022 0.023 0.021 NT-Pro-B Natriuret Pep EKG Comments: Twelve-lead EKG shows atrial fibrillation with rapid ventricular response. No significant ST segment changes are noted. Impressions: Chest X-Ray 08/06/19 00:00 IMPRESSION: Developing bilateral lower lung opacities consistent with bilateral pleural effusions and bilateral lower lung atelectasis and/or pneumonia. Assessment & Plan - Diagnosis (1) Atrial fibrillation with rapid ventricular response Is this a current diagnosis for this admission?: Yes (2) CHF (congestive heart failure) Qualifiers: Heart failure type: unspecified Heart failure chronicity: acute on chronic Qualified Code(s): I50.9 - Heart failure, unspecified Is this a current diagnosis for this admission?: Yes (3) COPD (chronic obstructive pulmonary disease) Qualifiers: COPD type: unspecified COPD Qualified Code(s): J44.9 - Chronic obstructive pulmonary disease, unspecified Is this a current diagnosis for this admission?: Yes (4) Hypertension Qualifiers: Hypertension type: essential hypertension Qualified Code(s): I10 - Essential (primary) hypertension Is this a current diagnosis for this admission?: Yes (5) Stented coronary artery Is this a current diagnosis for this admission?: Yes (6) Anemia Qualifiers: Anemia type: iron deficiency Iron deficiency anemia type: unspecified iron deficiency Qualified Code(s): D50.9 - Iron deficiency anemia, unspecified Is this a current diagnosis for this admission?: Yes - Notes Notes: Patient noted to be in CHF. Precipitating factors could be atrial fibrillation with rapid ventricular response, most likely. Patient also is noted to be anemic with low hemoglobin. At this point agree with diuretic therapy and rate control. If there is evidence of active bleeding could hold Eliquis. Otherwise continue with it. Recommend hematology oncology consultation in view of low ferritin level. Patient medical regimen reviewed and she seems to be very satisfactory. I have switched patient from metoprolol tartrate to metoprolol succinate. This is recommended according to AHA recommendations for cardiomyopathy. Other alternative could have been carvedilol but patient seems to have history of COPD. Could increase metoprolol succinate further as needed for better heart rate control. We will continue to follow. Will repeat EKG in the morning. As usual I thank Deborah Morales very much for the kind referral copy to her - Time Time Spent: 30 to 50 Minutes Medications reviewed and adjusted accordingly: Yes - Medications reviewed and adjusted as needed.
[2019-08-06] MEDS: LACTOBACILLUS ACIDOPHILUS 250 MG TAB PO SCH (21:08)
[2019-08-06] MEDS: APIXABAN 2.5 MG TABLET PO SCH (21:08)
[2019-08-06] MEDS: PANTOPRAZOLE SODIUM 40 MG TABLET.DR PO SCH (21:08)
[2019-08-06] MEDS: SACUBITRIL/VALSARTAN 24 MG/26 MG TABLET PO SCH (21:08)
[2019-08-06] MEDS ORDERED: FLUTICASONE/VILANTEROL 200-25 MCG/DOSE IH SCH (22:00)
[2019-08-06] MEDS ORDERED: METOPROLOL SUCCINATE 25 MG TAB.SR.24H PO SCH (22:00)
[2019-08-06] MEDS ORDERED: DILTIAZEM HCL/D5W 125 MG/125 ML RTUINJ IV ONE (23:46)
[2019-08-06] MEDS ORDERED: DILTIAZEM HCL INJ 25 MG/5 ML VIAL ONE (23:46)
[2019-08-07] MEDS ORDERED: DILTIAZEM HCL/D5W 125 MG/125 ML RTUINJ IV PRN (00:07)
[2019-08-07] MEDS ORDERED: DILTIAZEM HCL INJ 25 MG/5 ML VIAL IV ONE (00:15)
[2019-08-07] MEDS: MELATONIN 3 MG TABLET PO PRN ×2 (00:27→21:46)
[2019-08-07 05:13] LABS: ABSOLUTE LYMPHOCYTES (AUTO) 0.6 10^3/uL (0.5-4.7); ABSOLUTE MONOCYTES (AUTO) 0.3 10^3/uL (0.1-1.4); ABSOLUTE NEUT (AUTO) 3.9 10^3/uL (1.7-8.2); BASOPHILS % (AUTO) 0.5 % (0-2); EOSINOPHILS % (AUTO) 0.3 % (0-6); HEMATOCRIT 25.5 % (36.0-47.0); HEMOGLOBIN 8.3 g/dL (12.0-15.5); LYMPHOCYTES % (AUTO) 11.8 % (13-45); MEAN CORPUSCULAR HEMOGLOBIN 27.8 pg (27.0-33.4); MEAN CORPUSCULAR HGB CONC 32.7 g/dL (32.0-36.0); MEAN CORPUSCULAR VOLUME 85 fl (80-97); PLATELET COUNT 245 10^3/uL (150-450); RED CELL DISTRIBUTION WIDTH 16.4 % (11.5-14.0); SEGMENTED NEUTROPHILS % (AUTO) 81.4 % (42-78); TOTAL CELLS COUNTED % (AUTO) 100 %; WHITE BLOOD COUNT 4.8 10^3/uL (4.0-10.5)
[2019-08-07 05:27] LABS: ANION GAP 7 (5-19); BLOOD UREA NITROGEN 21 mg/dL (7-20); CALCIUM 8.4 mg/dL (8.4-10.2); CARBON DIOXIDE 29 mmol/L (22-30); CHLORIDE 102 mmol/L (98-107); GLUCOSE 106 mg/dL (75-110); POTASSIUM 4.2 mmol/L (3.6-5.0)
[2019-08-07] MEDS: ONDANSETRON HCL INJ/PF 4 MG/2 ML SDV IV PRN ×2 (09:26→15:01)
--- NOTE | 2019-08-07 09:38 | PDOC PROGRESS REPORT ---
Subjective Progress Note for:: 08/07/19 Subjective:: CINTHYA DANIELLE is a 83 year old female, [facility] resident with a past medical history of O2 dependent COPD, tobacco dependence, coronary artery disease, dyslipidemia, hypertension, iron deficiency anemia, ulcerative colitis, depression and A. fib on Eliquis, and CHF who was admitted early this morning by the orchard manager for atrial fibrillation with RVR and slight worsening of CHF as a result. The patient was seen on morning rounds. She was found resting in bed, comfortably, on supplemental oxygen via nasal cannula. She is alert and oriented x4. She reports a sore throat, nonproductive cough, and nausea today. Otherwise, she denies fever, chills, chest pain, palpitations, dyspnea, orthopnea, abdominal pain, vomiting and diarrhea. She has no other questions or concerns at this time. Per nursing, the patient had episodes of bradycardia and 2-second pauses and therefore diltiazem drip was discontinued. Review of telemetry shows that her bradycardia had underlying A. fib. Did receive a phone call from patient advocacy asking me to see the patient immediately as the family members were requesting my presence. At the time of the call, I was at the nursing desk reviewing telemetry strips and family was not present. I did immediately go to see the patient who is oriented x4, and only complains of sore throat, nonproductive cough, and nausea. I then discussed the patient's case with Dr. Servin; cardiology is formally consulted and all medication management will be per his recommendations. Per Dr. Servin's recommendation, I have also consulted hematology for the management of the patient's chronic anemia. At the time of my assessment, the patient is in stable condition, no evidence of acute distress or discomfort other than mild nausea without emesis. Reason For Visit: AFIB HEART FAILURE Physical Exam Vital Signs: Temp Pulse Resp BP Pulse Ox 98.2 F 75 14 129/68 H 100 08/07/19 08:11 08/07/19 08:11 08/07/19 08:11 08/07/19 08:11 08/07/19 08:11 Intake & Output 08/06/19 08/07/19 08/08/19 06:59 06:59 06:59 Intake Total 448 Balance 448 Weight 67.7 kg 60.3 kg General appearance: PRESENT: no acute distress, cooperative, hard of hearing, well-developed, well-nourished, other - Elderly and frail-appearing Head exam: PRESENT: atraumatic, normocephalic Eye exam: PRESENT: conjunctiva pink, EOMI, PERRLA. ABSENT: scleral icterus Ear exam: PRESENT: normal external ear exam Mouth exam: PRESENT: moist, tongue midline Teeth exam: PRESENT: poor dentation Respiratory exam: PRESENT: clear to auscultation emma, symmetrical, unlabored, other - Supplemental oxygen via nasal cannula. ABSENT: rales, rhonchi, wheezes Cardiovascular exam: PRESENT: irregular rhythm. ABSENT: diastolic murmur, rubs, systolic murmur Pulses: PRESENT: normal dorsalis pedis pul Vascular exam: PRESENT: normal capillary refill GI/Abdominal exam: PRESENT: normal bowel sounds, soft. ABSENT: distended, guarding, mass, organolmegaly, rebound, tenderness Rectal exam: PRESENT: deferred Extremities exam: PRESENT: full ROM. ABSENT: calf tenderness, clubbing, pedal edema Neurological exam: PRESENT: alert, awake, oriented to person, oriented to place, oriented to time, oriented to situation, CN II-XII grossly intact, other - Forgetful with periods of intermittent confusion; reoriented easily. ABSENT: motor sensory deficit Psychiatric exam: PRESENT: appropriate affect, normal mood. ABSENT: homicidal ideation, suicidal ideation Skin exam: PRESENT: dry, intact, warm. ABSENT: cyanosis, rash Results Laboratory Results: 08/07/19 04:13 08/07/19 04:13 08/07/19 08/07/19 04:13 04:13 WBC 4.8 RBC 3.00 L Hgb 8.3 L Hct 25.5 L MCV 85 MCH 27.8 MCHC 32.7 RDW 16.4 H Plt Count 245 Seg Neutrophils % 81.4 H Sodium 138.1 Potassium 4.2 Chloride 102 Carbon Dioxide 29 Anion Gap 7 BUN 21 H Creatinine 0.91 Est GFR ( Amer) > 60 Glucose 106 Calcium 8.4 08/06/19 08/06/19 08/06/19 04:25 04:25 04:25 Creatine Kinase 29 L CK-MB (CK-2) 0.90 Troponin I 0.019 NT-Pro-B Natriuret Pep [id number] H 08/06/19 08/06/19 08/06/19 07:08 13:44 17:46 Creatine Kinase CK-MB (CK-2) Troponin I 0.022 0.023 0.021 NT-Pro-B Natriuret Pep Impressions: Chest X-Ray 08/06/19 00:00 IMPRESSION: Developing bilateral lower lung opacities consistent with bilateral pleural effusions and bilateral lower lung atelectasis and/or pneumonia. Assessment and Plan - Diagnosis (1) Atrial fibrillation with rapid ventricular response Is this a current diagnosis for this admission?: Yes Plan: Reoccurred overnight requiring diltiazem drip. At time diltiazem drip with patient's heart rate was in the 170s. She quickly became rate controlled and this morning was found by nursing to have periods of bradycardia and 2-second pauses. Diltiazem drip was weaned from 10-5 with continued bradycardia and therefore discontinued. Nursing notified me immediately and I rechecked speak with Dr. Servin about medication recommendation s. Bradycardic periods had underlying atrial fibrillation. Patient is admitted to [facility] on continuous cardiac telemetry. Diltiazem drip now discontinued. Per Dr. Servin, have increased the patient's Toprol-XL to 50 mg twice daily. Continue renally dosed Eliquis. Cardiology is consulted; appreciate Dr. Servin's assistance. (2) Anemia Qualifiers: Anemia type: iron deficiency Is this a current diagnosis for this admission?: Yes Plan: Hemoglobin 8.3; near baseline. No evidence of active bleeding at this time. Received p.o. and IV iron Have consulted hematology; appreciate Dr. Dale's evaluation recommendations. We will follow CBC (3) CHF (congestive heart failure) Qualifiers: Heart failure type: unspecified Heart failure chronicity: acute on chronic Qualified Code(s): I50.9 - Heart failure, unspecified Is this a current diagnosis for this admission?: Yes Plan: Echocardiogram (06/26) showed LVEF 35% Patient was shortly transfer to [facility] where family members believe that she had cardiac cath with stenting. She is also been admitted to [facility] since that time. Requests have been faxed; awaiting return records. Continue metoprolol as above. Have resumed low-dose Entresto Continue to diurese with IV furosemide Cardiac diet, fluid restricted Daily weights and strict I's and O's Cardiology is consulted Palliative care consultation (4) COPD (chronic obstructive pulmonary disease) Qualifiers: COPD type: unspecified COPD Qualified Code(s): J44.9 - Chronic obstructive pulmonary disease, unspecified Is this a current diagnosis for this admission?: Yes Plan: Stable and without exacerbation at this time Patient is noted to have a nonproductive cough; lung sounds are clear. Continue supplemental oxygen to maintain saturations greater than 89%; patient is home O2 dependent Continue Symbicort As needed nebulizer treatments No indications for antibiotic or steroid therapy at this time (5) Chronic respiratory failure Qualifiers: Respiratory failure complication: hypoxia Qualified Code(s): J96.11 - Chronic respiratory failure with hypoxia Is this a current diagnosis for this admission?: Yes Plan: Continue supplemental oxygen as needed. Optimize cardiac output. Management of chronic COPD as above. Palliative care consultation. (6) Depression Is this a current diagnosis for this admission?: Yes Plan: Continue home dose Cymbalta (7) GERD (gastroesophageal reflux disease) Qualifiers: Esophagitis presence: without esophagitis Qualified Code(s): K21.9 - Gastro-esophageal reflux disease without esophagitis Is this a current diagnosis for this admission?: Yes Plan: PPI - Time Time Spent with patient: 25-34 minutes Medications reviewed and adjusted accordingly: Yes Anticipated discharge: SNF
[2019-08-07] MEDS ORDERED: CALCITRIOL 0.25 MCG CAPSULE PO SCH (10:00)
[2019-08-07] MEDS ORDERED: MESALAMINE 250 MG CAPSULE.SA PO SCH (10:00)
[2019-08-07] MEDS ORDERED: ATORVASTATIN CALCIUM 20 MG TABLET PO SCH (10:00)
[2019-08-07] MEDS ORDERED: METOPROLOL SUCCINATE 25 MG TAB.SR.24H PO SCH (10:00)
--- NOTE | 2019-08-07 13:05 | EKG REPORT ---
SEVERITY:- ABNORMAL ECG - ATRIAL FIBRILLATION, V-RATE 85-190 LOW VOLTAGE IN FRONTAL LEADS REPOLARIZATION ABNORMALITY, PROB RATE RELATED : Confirmed by: Eunice Servin 07-Aug-2019 13:04:24
--- NOTE | 2019-08-07 13:05 | EKG REPORT ---
SEVERITY:- ABNORMAL ECG - ATRIAL FIBRILLATION LEFT ANTERIOR FASCICULAR BLOCK PROBABLE LEFT VENTRICULAR HYPERTROPHY : Confirmed by: Eunice Servin 07-Aug-2019 13:04:20
[2019-08-07] MEDS: LACTOBACILLUS ACIDOPHILUS 250 MG TAB PO SCH ×2 (14:51→18:09)
[2019-08-07] MEDS: DULOXETINE HCL 20 MG CAPSULE.DR PO SCH (14:56)
[2019-08-07] MEDS: DOCUSATE SODIUM 100 MG CAPSULE PO SCH (14:56)
[2019-08-07] MEDS: FLUTICASONE/VILANTEROL 200-25 MCG/DOSE IH SCH (14:56)
[2019-08-07] MEDS: SACUBITRIL/VALSARTAN 24 MG/26 MG TABLET PO SCH ×2 (14:57→18:10)
[2019-08-07] MEDS: OXYBUTYNIN CHLORIDE 5 MG TABLET PO SCH (14:57)
[2019-08-07] MEDS: FUROSEMIDE INJ/PF 20 MG/2 ML SDV IV SCH ×2 (14:58→21:45)
[2019-08-07] MEDS: FERROUS SULFATE 325 MG TABLET PO SCH (14:58)
[2019-08-07] MEDS: POTASSIUM CHLORIDE 10 MEQ TABLET.ER PO SCH ×2 (14:58→21:46)
[2019-08-07] MEDS: FLUTICASONE NASAL SPRAY 50 MCG/SPRY 120 SPRAY/16 GM NASL SCH ×2 (14:58→21:47)
[2019-08-07] MEDS: MAGNESIUM OXIDE 400 MG TABLET PO SCH (14:59)
[2019-08-07] MEDS: CLOPIDOGREL BISULFATE 75 MG TABLET PO SCH (14:59)
[2019-08-07] MEDS: LIDOCAINE 5% (700 MG) TRANSDERMAL ADH..PATCH TP SCH (14:59)
[2019-08-07] MEDS: ATORVASTATIN CALCIUM 20 MG TABLET PO SCH (14:59)
[2019-08-07] MEDS: METOPROLOL SUCCINATE 50 MG TAB.SR.24H PO SCH ×2 (15:00→21:46)
[2019-08-07] MEDS: APIXABAN 2.5 MG TABLET PO SCH (18:10)
--- NOTE | 2019-08-07 18:13 | Progress Note ---
Provider Note Provider Note: Patient was seen at lunch time. Discussed the patient with the nurse and also the hospitalist. Patient was noted to be sleeping soundly. The nurse however told me that patient has been intermittently confused. Events of last night reviewed. I was told by the hospitalist that the heart rate was down in the 30s last night. It seems patient was started on Cardizem drip because of atrial fibrillation with rapid ventricular response. However subsequently patient was noted to be bradycardic but still in a Fib. At that time Cardizem drip was stopped and patient heart rate became within normal range. This morning, patient was still noted to be in atrial fibrillation. We decided to increase the Toprol-XL to 50 mg PO bid. Will be monitoring closely for any bradycardia. Patient hospitalisation records from [facility] and [facility] were available for review. It seems patient EF obtained recently based on 2D echo was 35 to 40%. Patient does have no history of coronary artery disease handheld stenting procedure. At this point, well optimised patient's medical management. Patient seems to be on a already good regimen. Currently on Entresto Rx, beta dawson therapy, anticoagulation. Continue patient on a statin therapy. Will continue to follow while patient in the hospital. 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 I'll be of course happy to follow the patient, if they specifically request. It may be best for the patient to be followed in the multispecialty clinic situation however.
[2019-08-07] MEDS: PANTOPRAZOLE SODIUM 40 MG TABLET.DR PO SCH (21:46)
[2019-08-08] MEDS: ACETAMINOPHEN 325 MG TABLET PO PRN ×2 (06:55→23:45)
--- NOTE | 2019-08-08 10:41 | PDOC CONSULTATION ---
Consultation Consult Date: 08/08/19 Attending physician:: JENI YATES Provider Consulted: PEYTON MERAZ Consult reason:: Anemia History of Present Illness Admission Date/PCP: 08/06/19 12:00 CARMELA RESENDIZ Patient complains of: Weakness, anemia History of Present Illness: CINTHYA DANIELLE is a 83 year old female with known history of multiple medical conditions, presents with hemoglobin in the 8 range. I reviewed labs, she had a hospitalization in June for pneumonia, at that time a ferritin was checked and it was 24. She is a poor historian herself. But does note black stool at times. I have sent iron studies here. Past Medical History Cardiac Medical History: Reports: Atrial Fibrillation, Congestive Heart Failure, Coronary Artery Disease - Has had a couple of stents placed in her arteries., Myocardial Infarction - 10/2014, Hyperlipidema, Hypertension Denies: DVT, Pulmonary Embolism Pulmonary Medical History: Reports: Asthma, Chronic Obstructive Pulmonary Disease (COPD), Pneumonia Neurological Medical History: Denies: Seizures Endocrine Medical History: Denies: Diabetes Mellitus Type 1, Diabetes Mellitus Type 2, Hyperthyroidism, Hypothyroidism Malignancy Medical History: Reports: Skin Cancer GI Medical History: Reports: Crohn's Disease, Gastroesophageal Reflux Disease, Hiatal Hernia, Ulcerative Colitis Denies: Cirrhosis, Hepatitis Musculoskeltal Medical History: Reports: Arthritis Denies: Gout Skin Medical History: Denies: Eczema, Psoriasis Psychiatric Medical History: Reports: Depression Hematology: Reports: Anemia - Chronic Denies: Bleeding Tendencies Past Surgical History Past Surgical History: Reports: Cardiac Catheterization - with stents, Coronary Stent - x2, Other - Skin cancer surgery Social History Information Source: Patient Lives with: Longterm Smoking Status: Unknown if Ever Smoked Frequency of Alcohol Use: None Hx Recreational Drug Use: No Drugs: None Hx Prescription Drug Abuse: No - Advance Directive Resuscitation Status: Full Code Family History Family History: CAD - Father, COPD - Brother, CVA - Mother, DM, Hypertension, Malignancy - 1 sister colon cancer and another sister lung cancer Parental Family History Reviewed: Yes Children Family History Reviewed: Yes Sibling(s) Family History Reviewed.: Yes Medication/Allergy Home Medications: Duloxetine HCl [Cymbalta 20 Mg Capsule.Dr] 20 mg PO DAILY 06/03/19 Oxybutynin Chloride [Ditropan Xl] 10 mg PO DAILY 06/03/19 Acetaminophen [Tylenol] 650 mg PO Q4HP PRN 08/06/19 Apixaban [Eliquis 2.5 mg Tablet] 2.5 mg PO QPM 08/06/19 Budesonide/Formoterol Fumarate [Symbicort Hfa 160-4.5 Mcg Inhaler 6 gm] 2 puff IH Q12 08/06/19 Calcitriol [Rocaltrol 0.25 Mcg Capsule] 0.25 mcg PO MOWEFR@1000 08/06/19 Clopidogrel Bisulfate [Plavix 75 mg Tablet] 75 mg PO DAILY 08/06/19 Ferrous Sulfate [Feosol 325 mg Tablet] 325 mg PO DAILY 08/06/19 Furosemide [Lasix 40 mg Tablet] 40 mg PO QAM 08/06/19 Ipratropium/Albuterol Sulfate [Duoneb 3 ml Ampul] 3 ml NEB RTQ4HP PRN 08/06/19 Lidocaine [Lidoderm 5% (700 mg) Transdermal Patch] 1 patch TP DAILY MDD LOWER BACK 08/06/19 Magnesium Oxide [Mag-Ox 400 mg Tablet] 400 mg PO DAILY 08/06/19 Melatonin [Melatonin 3 mg Tablet] 6 mg PO HSP PRN 08/06/19 Mesalamine [Lialda] 2.4 gm PO DAILY 08/06/19 Metoprolol Tartrate [Lopressor 25 mg Tablet] 6.25 mg PO Q12 08/06/19 Omeprazole 20 mg PO DAILY 08/06/19 Pantoprazole Sodium [Protonix [address] Tablet] 40 mg PO QHS 08/06/19 Rosuvastatin Calcium [Crestor] 10 mg PO DAILY 08/06/19 Sacubitril/Valsartan [Entresto 49 mg/51 mg Tablet] 1 tab PO Q12 08/06/19 Allergies/Adverse Reactions: prednisone [Prednisone] Allergy (Unknown, Verified 04/10/19 17:23) cephalexin [Cephalexin] Allergy (Verified 05/08/19 07:45) ciprofloxacin [From Cipro] Allergy (Verified 04/10/19 17:23) cortisone [Cortisone] Allergy (Verified 04/10/19 17:23) Penicillins Allergy (Verified 04/10/19 17:23) phenazopyridine [Phenazopyridine] Allergy (Verified 04/10/19 17:23) Sulfa (Sulfonamide Antibiotics) Allergy (Verified 04/10/19 17:23) sulfamethoxazole [From Bactrim] Allergy (Verified 04/10/19 17:23) tramadol HCl [From Ultram] Allergy (Verified 04/10/19 17:23) trimethoprim [From Bactrim] Allergy (Verified 04/10/19 17:23) Review of Systems ROS unobtainable: Due to mental status Physical Exam Vital Signs: Temp Pulse Resp BP Pulse Ox 97.2 F 110 H 17 150/83 H 99 08/08/19 07:42 08/08/19 07:42 08/08/19 07:42 08/08/19 07:42 08/08/19 07:42 Intake & Output 08/07/19 08/08/19 08/09/19 06:59 06:59 06:59 Intake Total 448 920 Balance 448 920 Weight 60.3 kg 60.3 kg General appearance: PRESENT: no acute distress, well-developed, well-nourished Head exam: PRESENT: atraumatic, normocephalic Eye exam: PRESENT: conjunctiva pink, EOMI, PERRLA. ABSENT: scleral icterus Ear exam: PRESENT: normal external ear exam Mouth exam: PRESENT: moist, tongue midline Neck exam: ABSENT: carotid bruit, JVD, lymphadenopathy, thyromegaly Respiratory exam: PRESENT: clear to auscultation emma. ABSENT: rales, rhonchi, w heezes Cardiovascular exam: PRESENT: RRR. ABSENT: diastolic murmur, rubs, systolic murmur Pulses: PRESENT: normal dorsalis pedis pul Vascular exam: PRESENT: normal capillary refill GI/Abdominal exam: PRESENT: normal bowel sounds, soft. ABSENT: distended, guarding, mass, organolmegaly, rebound, tenderness Rectal exam: PRESENT: deferred Extremities exam: PRESENT: full ROM. ABSENT: calf tenderness, clubbing, pedal edema Neurological exam: PRESENT: alert, awake, oriented to person, oriented to place, oriented to time, oriented to situation, CN II-XII grossly intact. ABSENT: motor sensory deficit Psychiatric exam: PRESENT: appropriate affect, normal mood. ABSENT: homicidal ideation, suicidal ideation Skin exam: PRESENT: dry, intact, warm. ABSENT: cyanosis, rash Results Laboratory Results: 08/07/19 04:13 08/07/19 04:13 08/06/19 08/06/19 08/06/19 04:25 04:25 04:25 Creatine Kinase 29 L CK-MB (CK-2) 0.90 Troponin I 0.019 NT-Pro-B Natriuret Pep 83087 H 08/06/19 08/06/19 08/06/19 07:08 13:44 17:46 Creatine Kinase CK-MB (CK-2) Troponin I 0.022 0.023 0.021 NT-Pro-B Natriuret Pep Impressions: Chest X-Ray 08/06/19 00:00 IMPRESSION: Developing bilateral lower lung opacities consistent with bilateral pleural effusions and bilateral lower lung atelectasis and/or pneumonia. Assessment & Plan - Diagnosis (1) Anemia Qualifiers: Anemia type: iron deficiency Iron deficiency anemia type: chronic blood loss Qualified Code(s): D50.0 - Iron deficiency anemia secondary to blood loss (chronic) Is this a current diagnosis for this admission?: Yes Plan: I believe her anemia is going to be related to chronic blood loss anemia, she might have something like an AVM that chronically bleeds. I have sent iron studies. If ferritin is still low plan for IV iron. - Time Time Spent: 50 to 70 Minutes
[2019-08-08] MEDS: DULOXETINE HCL 20 MG CAPSULE.DR PO SCH (10:47)
[2019-08-08] MEDS: POTASSIUM CHLORIDE 10 MEQ TABLET.ER PO SCH ×2 (10:47→21:42)
[2019-08-08] MEDS: MAGNESIUM OXIDE 400 MG TABLET PO SCH (10:47)
[2019-08-08] MEDS: ATORVASTATIN CALCIUM 20 MG TABLET PO SCH (10:47)
[2019-08-08] MEDS: LACTOBACILLUS ACIDOPHILUS 250 MG TAB PO SCH ×2 (10:47→17:14)
[2019-08-08] MEDS: CLOPIDOGREL BISULFATE 75 MG TABLET PO SCH (10:48)
[2019-08-08] MEDS: OXYBUTYNIN CHLORIDE 5 MG TABLET PO SCH (10:48)
[2019-08-08] MEDS: FERROUS SULFATE 325 MG TABLET PO SCH (10:48)
[2019-08-08] MEDS: METOPROLOL SUCCINATE 50 MG TAB.SR.24H PO SCH ×2 (10:48→21:42)
[2019-08-08] MEDS: SACUBITRIL/VALSARTAN 24 MG/26 MG TABLET PO SCH ×2 (10:48→17:14)
[2019-08-08] MEDS: FLUTICASONE NASAL SPRAY 50 MCG/SPRY 120 SPRAY/16 GM NASL SCH ×2 (10:49→21:47)
[2019-08-08] MEDS: LIDOCAINE 5% (700 MG) TRANSDERMAL ADH..PATCH TP SCH (10:49)
[2019-08-08] MEDS: FLUTICASONE/VILANTEROL 200-25 MCG/DOSE IH SCH (10:50)
[2019-08-08] MEDS: FUROSEMIDE INJ/PF 20 MG/2 ML SDV IV SCH ×2 (10:50→21:45)
[2019-08-08] MEDS: DOCUSATE SODIUM 100 MG CAPSULE PO SCH (10:51)
[2019-08-08 11:44] LABS: ABSOLUTE RETICS # 0.054 10^6/uL (0.028-0.122); RETICULOCYTE COUNT (AUTO) 1.86 % (0.66-2.85)
--- NOTE | 2019-08-08 11:53 | Progress Note ---
Provider Note Provider Note: Patient noted to have elevated heart rate response to atrial fibrillation. I noted that metoprolol succinate dose has been increased 200 twice daily. Agree with this change in medication. Patient otherwise seems to be stable. We will continue to follow. If heart rate is difficult to control, patient may end up needing a electrophysiological consultation etc. We will continue to follow.
[2019-08-08 11:57] LABS: IRON(TIBC) 18.3 ug/dL (37-170)
[2019-08-08] MEDS ORDERED: FERUMOXYTOL (NESRD) 510 MG/17 ML VIAL IV SCH (16:30)
[2019-08-08] MEDS ORDERED: FERUMOXYTOL (NON-ESRD) 510 MG/NS 100 ML IV SCH ×2 (17:00)
[2019-08-08] MEDS: APIXABAN 2.5 MG TABLET PO SCH (17:14)
--- NOTE | 2019-08-08 17:38 | PDOC PROGRESS REPORT ---
Subjective Progress Note for:: 08/08/19 Subjective:: CINTHYA DANIELLE is a 83 [facility] old female, [facility] with a past medical history of O2 dependent COPD, tobacco dependence, coronary artery disease, dyslipidemia, hypertension, iron deficiency anemia, ulcerative colitis, depression and A. fib on Eliquis, and CHF who was admitted early this morning by the fitness consultant for atrial fibrillation with RVR and slight worsening of CHF as a result. The patient was seen on morning rounds. She was found resting in bed, comfortably, on supplemental oxygen via nasal cannula. She is alert and oriented x4. She states that she wants to go home. We discussed possible d/c to home with home health vs return to SNF for rehab when ready for d/c (anticipate 48-72 hours). Patient reports that she does not want to return to SNF and wishes to d/c directly to home. She is encouraged to discuss this with her family members and is advised that she has the right to self determination (during similar conversations yesterday when family was present, family members told patient that she "had to go to rehab in order to go home.") Otherwise, she denies fever, chills, chest pain, palpitations, dyspnea, orthopnea, abdominal pain, vomiting and diarrhea. She has no other questions or concerns at this time. No concerns per nursing. Reason For Visit: AFIB HEART FAILURE Physical Exam Vital Signs: Temp Pulse Resp BP Pulse Ox 97.3 F 73 18 133/80 H 98 08/08/19 15:29 08/08/19 15:29 08/08/19 15:29 08/08/19 15:29 08/08/19 15:29 Intake & Output 08/07/19 08/08/19 08/09/19 06:59 06:59 06:59 Intake Total 448 920 360 Balance 448 920 360 Weight 60.3 kg 60.3 kg General appearance: PRESENT: no acute distress, cooperative, hard of hearing, well-developed, well-nourished, other - frail Head exam: PRESENT: atraumatic, normocephalic Eye exam: PRESENT: conjunctiva pink, EOMI, PERRLA. ABSENT: scleral icterus Ear exam: PRESENT: normal external ear exam Mouth exam: PRESENT: moist, tongue midline Respiratory exam: PRESENT: clear to auscultation emma, symmetrical, unlabored, other - Supplemental oxygen via NC. ABSENT: rales, rhonchi, wheezes Cardiovascular exam: PRESENT: irregular rhythm, +S1, +S2, systolic murmur, tachy cardia. ABSENT: diastolic murmur, rubs Vascular exam: PRESENT: normal capillary refill Extremities exam: PRESENT: full ROM. ABSENT: calf tenderness, clubbing, pedal edema Neurological exam: PRESENT: alert, awake, oriented to person, oriented to place, oriented to time, oriented to situation, CN II-XII grossly intact, other - Brief intermittent periods of confusion and forgetfulness. ABSENT: motor sensory deficit Psychiatric exam: PRESENT: appropriate affect, normal mood. ABSENT: homicidal ideation, suicidal ideation Skin exam: PRESENT: dry, intact, warm. ABSENT: cyanosis, rash Results Laboratory Results: 08/07/19 04:13 08/07/19 04:13 08/07/19 08/07/19 04:13 04:13 Retic Count (auto) 1.86 Iron 18.3 L TIBC 333 % Saturation 5 Ferritin 36.70 Vitamin B12 654.0 Folate 11.60 08/06/19 08/06/19 08/06/19 04:25 04:25 04:25 Creatine Kinase 29 L CK-MB (CK-2) 0.90 Troponin I 0.019 NT-Pro-B Natriuret Pep 17024 H 08/06/19 08/06/19 08/06/19 07:08 13:44 17:46 Creatine Kinase CK-MB (CK-2) Troponin I 0.022 0.023 0.021 NT-Pro-B Natriuret Pep Impressions: Chest X-Ray 08/06/19 00:00 IMPRESSION: Developing bilateral lower lung opacities consistent with bilateral pleural effusions and bilateral lower lung atelectasis and/or pneumonia. Assessment and Plan - Diagnosis (1) Atrial fibrillation with rapid ventricular response Is this a current diagnosis for this admission?: Yes Plan: Reoccurred overnight requiring diltiazem drip. At time diltiazem drip with patient's heart rate was in the 170s. She quickly became rate controlled and this morning was found by nursing to have periods of bradycardia and 2-second pauses. Diltiazem drip was weaned from 10-5 with continued bradycardia and therefore discontinued. Nursing notified me immediately and I rechecked speak with Dr. Servin about medication recommendations. Bradycardic periods had underlying atrial fibrillation. Patient is admitted to [facility] on continuous cardiac telemetry. Diltiazem drip now discontinued. Have increased the patient's Toprol-XL to 100 mg twice daily. Continue renally dosed Eliquis. Cardiology is consulted; appreciate Dr. Servin's assistance. (2) Anemia Qualifiers: Anemia type: iron deficiency Is this a current diagnosis for this admission?: Yes Plan: Hemoglobin 8.3; near baseline. No evidence of active bleeding at this time. Anemia panel reveals iron deficiency anemia. Received p.o. and IV iron Have consulted hematology; appreciate Dr. Dale's evaluation recommendations. We will follow CBC (3) CHF (congestive heart failure) Qualifiers: Heart failure type: unspecified Heart failure chronicity: acute on chronic Qualified Code(s): I50.9 - Heart failure, unspecified Is this a current diagnosis for this admission?: Yes Plan: Echocardiogram (06/26) showed LVEF 35% Patient was shortly transfer to [facility], [facility] where family members believe that she had cardiac cath with stenting. She is also been admitted to [facility] since that time. Continue metoprolol as above. Continue low-dose Entresto Continue to diurese with IV furosemide Cardiac diet, fluid restricted Daily weights and strict I&O's Cardiology is consulted Palliative care consultation (4) COPD (chronic obstructive pulmonary disease) Qualifiers: COPD type: unspecified COPD Qualified Code(s): J44.9 - Chronic obstructive pulmonary disease, unspecified Is this a current diagnosis for this admission?: Yes Plan: Stable and without exacerbation at this time Continue supplemental oxygen to maintain saturations greater than 89%; patient is home O2 dependent Continue Symbicort As needed nebulizer treatments No indications for antibiotic or steroid therapy at this time (5) Chronic respiratory failure Qualifiers: Respiratory failure complication: hypoxia Qualified Code(s): J96.11 - Chronic respiratory failure with hypoxia Is this a current diagnosis for this admission?: Yes Plan: Continue supplemental oxygen as needed. Optimize cardiac output. Management of chronic COPD as above. Palliative care consultation. (6) Depression Is this a current diagnosis for this admission?: Yes Plan: Continue home dose Cymbalta (7) GERD (gastroesophageal reflux disease) Qualifiers: Esophagitis presence: without esophagitis Qualified Code(s): K21.9 - Gastro-esophageal reflux disease without esophagitis Is this a current diagnosis for this admission?: Yes Plan: PPI - Time Time Spent with patient: 25-34 minutes Medications reviewed and adjusted accordingly: Yes Anticipated discharge: Home with Homehealth Within: within 72 hours
[2019-08-08] MEDS: MELATONIN 3 MG TABLET PO PRN (21:45)
[2019-08-08] MEDS: PANTOPRAZOLE SODIUM 40 MG TABLET.DR PO SCH (21:45)
[2019-08-08] MEDS: ONDANSETRON HCL INJ/PF 4 MG/2 ML SDV IV PRN (21:47)
--- NOTE | 2019-08-08 23:43 | EKG REPORT ---
SEVERITY:- ABNORMAL ECG - ATRIAL FIBRILLATION PROBABLE LEFT VENTRICULAR HYPERTROPHY BORDERLINE T ABNORMALITIES, INFERIOR LEADS : Confirmed by: Eunice Servin 08-Aug-2019 23:42:32
[2019-08-09 04:53] LABS: HEMATOCRIT 25.1 % (36.0-47.0); HEMOGLOBIN 8.3 g/dL (12.0-15.5); MEAN CORPUSCULAR HEMOGLOBIN 27.8 pg (27.0-33.4); MEAN CORPUSCULAR HGB CONC 32.9 g/dL (32.0-36.0); MEAN CORPUSCULAR VOLUME 84 fl (80-97); PLATELET COUNT 264 10^3/uL (150-450); RED BLOOD COUNT 2.97 10^6/uL (3.72-5.28); RED CELL DISTRIBUTION WIDTH 16.2 % (11.5-14.0); WHITE BLOOD COUNT 3.4 10^3/uL (4.0-10.5)
[2019-08-09 05:19] LABS: BLOOD UREA NITROGEN 17 mg/dL (7-20); CALCIUM 8.5 mg/dL (8.4-10.2); GLUCOSE 94 mg/dL (75-110); POTASSIUM 4.5 mmol/L (3.6-5.0)
[2019-08-09 05:25] LABS: CARBON DIOXIDE 32 mmol/L (22-30); CHLORIDE 103 mmol/L (98-107)
[2019-08-09 05:31] LABS: ANION GAP 2 (5-19)
[2019-08-09] MEDS ORDERED: FUROSEMIDE 40 MG TABLET PO SCH (08:00)
[2019-08-09] MEDS: FLUTICASONE NASAL SPRAY 50 MCG/SPRY 120 SPRAY/16 GM NASL SCH (09:11)
[2019-08-09] MEDS: ATORVASTATIN CALCIUM 20 MG TABLET PO SCH (09:12)
[2019-08-09] MEDS: LIDOCAINE 5% (700 MG) TRANSDERMAL ADH..PATCH TP SCH (09:12)
[2019-08-09] MEDS: METOPROLOL SUCCINATE 50 MG TAB.SR.24H PO SCH (09:12)
[2019-08-09] MEDS: LACTOBACILLUS ACIDOPHILUS 250 MG TAB PO SCH (09:12)
[2019-08-09] MEDS: FERROUS SULFATE 325 MG TABLET PO SCH (09:12)
[2019-08-09] MEDS: DOCUSATE SODIUM 100 MG CAPSULE PO SCH (09:12)
[2019-08-09] MEDS: FLUTICASONE/VILANTEROL 200-25 MCG/DOSE IH SCH (09:12)
[2019-08-09] MEDS: POTASSIUM CHLORIDE 10 MEQ TABLET.ER PO SCH (09:13)
[2019-08-09] MEDS: DULOXETINE HCL 20 MG CAPSULE.DR PO SCH (09:13)
[2019-08-09] MEDS: CLOPIDOGREL BISULFATE 75 MG TABLET PO SCH (09:13)
[2019-08-09] MEDS: OXYBUTYNIN CHLORIDE 5 MG TABLET PO SCH (09:13)
[2019-08-09] MEDS: SACUBITRIL/VALSARTAN 24 MG/26 MG TABLET PO SCH (09:13)
[2019-08-09] MEDS: MAGNESIUM OXIDE 400 MG TABLET PO SCH (09:13)
--- NOTE | 2019-08-09 11:39 | PDOC TRANSFER SUMMARY ---
Impression - Admit/DC Date/PCP Admission Date/Primary Care Provider: 08/06/19 12:00 CARMELA RESENDIZ Discharge Date: 08/09/19 - Discharge Diagnosis (1) Atrial fibrillation with rapid ventricular response Is this a current diagnosis for this admission?: Yes (2) Anemia Is this a current diagnosis for this admission?: Yes (3) CHF (congestive heart failure) Is this a current diagnosis for this admission?: Yes (4) COPD (chronic obstructive pulmonary disease) Is this a current diagnosis for this admission?: Yes (5) Chronic respiratory failure Is this a current diagnosis for this admission?: Yes (6) Depression Is this a current diagnosis for this admission?: Yes (7) GERD (gastroesophageal reflux disease) Is this a current diagnosis for this admission?: Yes - Additional Information Resuscitation Status: Full Code Discharge Diet: Cardiac, Diabetic Discharge Activity: Activity As Tolerated, Balance Activity w/Rest, Slowly Increase Activity, Supervised Activity Referrals: RACHEL MEDRANO FNP [Primary Care Provider] - 08/18/19 1:45 pm PEYTON DALE MD [ACTIVE STAFF] - (Follow up within 1 week for anemia.) NASRIN MCDONALD MD [ASSOCIATE] - (Follow up within 1-2 weeks for CHF and afib.) Prescriptions: Sacubitril/Valsartan [Entresto 24 mg/26 mg Tablet] 1 tab PO BID #60 tablet Fluticasone Propionate [Flonase Nasal Riverside 50 Mcg/Riverside 16 gm] 1 spray NASL Q12 #1 spray.pump Metoprolol Succinate [Toprol Xl 50 mg Tab.sr] 100 mg PO Q12 #120 tab.sr.24h Home Medications: Duloxetine HCl [Cymbalta 20 mg Capsule.dr] 20 mg PO DAILY 06/03/19 Oxybutynin Chloride [Ditropan Xl] 10 mg PO DAILY 06/03/19 Acetaminophen [Tylenol] 650 mg PO Q4HP PRN 08/06/19 Apixaban [Eliquis 2.5 mg Tablet] 2.5 mg PO QPM 08/06/19 Budesonide/Formoterol Fumarate [Symbicort HFA 160-4.5 mcg Inhaler 6 gm] 2 puff IH Q12 08/06/19 Calcitriol [Rocaltrol 0.25 mcg Capsule] 0.25 mcg PO MOWEFR@1000 08/06/19 Clopidogrel Bisulfate [Plavix 75 mg Tablet] 75 mg PO DAILY 08/06/19 Ferrous Sulfate [Feosol 325 mg Tablet] 325 mg PO DAILY 08/06/19 Furosemide [Lasix 40 mg Tablet] 40 mg PO QAM 08/06/19 Ipratropium/Albuterol Sulfate [Duoneb 3 ml Ampul] 3 ml NEB RTQ4HP PRN 08/06/19 Lidocaine [Lidoderm 5% (700 mg) Transdermal Patch] 1 patch TP DAILY MDD LOWER BACK 08/06/19 Magnesium Oxide [Mag-Ox 400 mg Tablet] 400 mg PO DAILY 08/06/19 Melatonin [Melatonin 3 mg Tablet] 6 mg PO HSP PRN 08/06/19 Mesalamine [Lialda] 2.4 gm PO DAILY 08/06/19 Omeprazole 20 mg PO DAILY 08/06/19 Pantoprazole Sodium [Protonix [address] Tablet] 40 mg PO QHS 08/06/19 Rosuvastatin Calcium [Crestor] 10 mg PO DAILY 08/06/19 Fluticasone Propionate [Flonase Nasal Rivers[place] 50 Mcg/Riverside 16 gm] 1 spray NASL Q12 #1 spray.pump 08/09/19 Metoprolol Succinate [Toprol Xl 50 mg Tab.sr] 100 mg PO Q12 #120 tab.sr.24h 08/09/19 Sacubitril/Valsartan [Entresto 24 mg/26 mg Tablet] 1 tab PO BID #60 tablet 08/09/19 History of Present Illiness History of Present Illness: Per H&P by Dr. Nguyen: CINTHYA DANIELLE is a 83 year old female, longterm resident with a past medical history of O2 dependent COPD, tobacco dependence, coronary artery disease, dyslipidemia, hypertension, iron deficiency anemia, ulcerative colitis, depression and A. fib on Eliquis. [facility] breath and tachycardia. In the emergency department she is found to have a A. fib with RVR in the 160s. She started on IV Cardizem and referred to the hospitalist for admission. Patient denies chest pain nausea vomiting diaphoresis. She is a poor historian and unable to provide additional history. She is specifically unaware of any changes in her medications Hospital Course Hospital Course: (1) Atrial fibrillation with rapid ventricular response Patient was admitted to [facility] on continuous cardiac telemetry. Rate control was initially achieved through diltiazem drip, however, patient developed episodes of bradycardia with 2 to 3-second pauses. Diltiazem drip now discontinued. Cardiology was consulted; appreciate Dr. Servin's assistance. Have increased the patient's Toprol-XL to 100 mg twice daily with improved rate control. Continue renally dosed Eliquis. Recommend outpatient follow-up with supervisor specialty plant. (2) Anemia Hemoglobin 8.3; near baseline. No evidence of active bleeding at this time. Anemia panel reveals iron deficiency anemia. Received p.o. and IV iron Hematology was consulted; recommend outpatient follow-up within 1 week for additional iron infusions as previously planned. (3) CHF (congestive heart failure) Echocardiogram (06/26) showed LVEF 35% Patient was shortly transfer to [facility] where family members believe that she had cardiac cath with stenting. [facility]. Continue metoprolol as above. Continue low-dose Entresto Continue to diurese with home dose furosemide Cardiac diet, fluid restricted to 2 L/ daily Daily weights; report weight gain of 2 pounds overnight senior examiner. Outpatient cardiology follow-up. Strongly recommend palliative care consultation. (4) COPD (chronic obstructive pulmonary disease) Stable and without exacerbation at this time Continue supplemental oxygen to maintain saturations greater than 89%; patient is home O2 dependent Continue Symbicort (5) Chronic respiratory failure Stable. Recommend Palliative care consultation. (6) Depression Continue home dose Cymbalta (7) GERD (gastroesophageal reflux disease) PPI Physical Exam Vital Signs: Temp Pulse Resp BP Pulse Ox 97.4 F 74 16 175/90 H 98 08/09/19 07:39 08/09/19 07:39 08/09/19 07:39 08/09/19 07:39 08/09/19 07:39 Intake & Output 08/08/19 08/09/19 08/10/19 06:59 06:59 06:59 Intake Total 920 857 Balance 920 857 Weight 60.3 kg 59.4 kg General appearance: PRESENT: no acute distress, hard of hearing, thin, well- developed, well-nourished, other - Frail and chronically ill-appearing Head exam: PRESENT: atraumatic, normocephalic Eye exam: PRESENT: conjunctiva pink, EOMI, PERRLA. ABSENT: scleral icterus Ear exam: PRESENT: normal external ear exam Mouth exam: PRESENT: moist, tongue midline Teeth exam: PRESENT: poor dentation Respiratory exam: PRESENT: clear to auscultation emma, symmetrical, unlabored, other - Supplemental oxygen via nasal cannula 2 L/min. ABSENT: rales, rhonchi, wheezes Cardiovascular exam: PRESENT: irregular rhythm, +S1, +S2, systolic murmur. ABSENT: diastolic murmur, rubs Pulses: PRESENT: normal dorsalis pedis pul Vascular exam: PRESENT: normal capillary refill GI/Abdominal exam: PRESENT: normal bowel sounds, soft. ABSENT: distended, guarding, mass, organolmegaly, rebound, tenderness Rectal exam: PRESENT: deferred Extremities exam: PRESENT: full ROM. ABSENT: calf tenderness, clubbing, pedal edema Neurological exam: PRESENT: alert, awake, oriented to person, oriented to place, oriented to situation, CN II-XII grossly intact, other - Intermittent confusion and forgetfulness. ABSENT: oriented to time, motor sensory deficit Psychiatric exam: PRESENT: appropriate affect, normal mood. ABSENT: homicidal ideation, suicidal ideation Skin exam: PRESENT: dry, intact, warm. ABSENT: cyanosis, rash Results Laboratory Results: WBC 3.4 10^3/uL (4.0-10.5) L 08/09/19 04:42 RBC 2.97 10^6/uL (3.72-5.28) L 08/09/19 04:42 Hgb 8.3 g/dL (12.0-15.5) L 08/09/19 04:42 Hct 25.1 % (36.0-47.0) L 08/09/19 04:42 MCV 84 fl (80-97) 08/09/19 04:42 MCH 27.8 pg (27.0-33.4) 08/09/19 04:42 MCHC 32.9 g/dL (32.0-36.0) 08/09/19 04:42 RDW 16.2 % (11.5-14.0) H 08/09/19 04:42 Plt Count 264 10^3/uL (150-450) 08/09/19 04:42 Lymph % (Auto) 11.8 % (13-45) L 08/07/19 04:13 Travis % (Auto) 6.0 % (3-13) 08/07/19 04:13 Eos % (Auto) 0.3 % (0-6) 08/07/19 04:13 Baso % (Auto) 0.5 % (0-2) 08/07/19 04:13 Reticulocyte # 0.054 10^6/uL (0.028-0.122) 08/07/19 04:13 Absolute Neuts (auto) 3.9 10^3/uL (1.7-8.2) 08/07/19 04:13 Absolute Lymphs (auto) 0.6 10^3/uL (0.5-4.7) 08/07/19 04:13 Absolute Monos (auto) 0.3 10^3/uL (0.1-1.4) 08/07/19 04:13 Absolute Eos (auto) 0.0 10^3/uL (0.0-0.6) 08/07/19 04:13 Absolute Basos (auto) 0.0 10^3/uL (0.0-0.2) 08/07/19 04:13 Seg Neutrophils % 81.4 % (42-78) H 08/07/19 04:13 Retic Count (auto) 1.86 % (0.66-2.85) 08/07/19 04:13 PT 15.9 SEC (11.4-15.4) H 08/06/19 04:25 INR 1.26 08/06/19 04:25 Sodium 137.3 mmol/L (137-145) 08/09/19 04:42 Potassium 4.5 mmol/L (3.6-5.0) 08/09/19 04:42 Chloride 103 mmol/L (98-107) 08/09/19 04:42 Carbon Dioxide 32 mmol/L (22-30) H 08/09/19 04:42 Anion Gap 2 (5-19) L 08/09/19 04:42 BUN 17 mg/dL (7-20) 08/09/19 04:42 Creatinine 0.85 mg/dL (0.52-1.25) 08/09/19 04:42 Est GFR ( Amer) > 60 (>60) 08/09/19 04:42 Est GFR (MDRD) Non-Af > 60 (>60) 08/09/19 04:42 Glucose 94 mg/dL (75-110) 08/09/19 04:42 Calcium 8.5 mg/dL (8.4-10.2) 08/09/19 04:42 Magnesium 2.4 mg/dL (1.6-2.3) H 08/06/19 04:25 Iron 18.3 ug/dL (37-170) L 08/07/19 04:13 TIBC 333 ug/dL (250-450) 08/07/19 04:13 % Saturation 5 % 08/07/19 04:13 Ferritin 36.70 ng/mL (11.1-264.0) 08/07/19 04:13 Total Bilirubin 0.3 mg/dL (0.2-1.3) 08/06/19 04:25 Direct Bilirubin 0.3 mg/dL (0.0-0.4) 08/06/19 04:25 Neonat Total Bilirubin Not Reportable 08/06/19 04:25 Neonat Direct Bilirubin Not Reportable 08/06/19 04:25 Neonat Indirect Bili Not Reportable 08/06/19 04:25 AST 38 U/L (14-36) H 08/06/19 04:25 ALT 25 U/L (<35) 08/06/19 04:25 Alkaline Phosphatase 76 U/L (38-126) 08/06/19 04:25 Creatine Kinase 29 U/L (30-135) L 08/06/19 04:25 CK-MB (CK-2) 0.90 ng/mL (<4.55) 08/06/19 04:25 Troponin I 0.021 ng/mL 08/06/19 17:46 NT-Pro-B Natriuret Pep 95481 pg/mL (<450) H 08/06/19 04:25 Total Protein 5.8 g/dL (6.3-8.2) L 08/06/19 04:25 Albumin 3.1 g/dL (3.5-5.0) L 08/06/19 04:25 Vitamin B12 654.0 pg/mL (239-931) 08/07/19 04:13 Folate 11.60 ng/mL (>2.76) 08/07/19 04:13 TSH 2.51 uIU/mL (0.47-4.68) 08/06/19 04:25 Group A Strep Rapid NEGATIVE (NEGATIVE) 08/07/19 03:35 08/06/19 08/06/19 08/06/19 04:25 04:25 07:08 CK-MB (CK-2) 0.90 Troponin I 0.019 0.022 NT-Pro-B Natriuret Pep 76810 H 08/06/19 08/06/19 13:44 17:46 CK-MB (CK-2) Troponin I 0.023 0.021 NT-Pro-B Natriuret Pep Impressions: Chest X-Ray 08/06/19 00:00 IMPRESSION: Developing bilateral lower lung opacities consistent with bilateral pleural effusions and bilateral lower lung atelectasis and/or pneumonia. Plan Plan of Treatment: Patient is discharged to [facility] where she is a short-term resident. She is to follow-up with Dr. Dale within 1 week for iron infusions and further evaluation management of her anemia. She should follow-up with Dr. Mcdonald within 1 to 2 weeks to further evaluate and manage her heart failure and atrial fibrillation. Per the consulted senior examiner, Dr. Servin, patient would benefit from evaluation by an supervisor specialty plant. Follow-up with primary care provider within 1 week. Strongly encouraged palliative care consultation to establish goals of care. Take medications as prescribed. Eat a low-sodium diet, fluid restrict 2 L daily. Return to the emergency department as needed for concerning symptoms. Time Spent: Greater than 30 Minutes Stroke Is this a Stroke Patient?: No Acute Heart Failure - Is this a Heart Failure Patient?: Yes Documentation of LVEF assessment?: Yes LVEF < 40%?: Yes-if yes answer questions a through e a) Discharged on ACEI?: N/A Discharged on ARNI b) Discharges on ARB?: N/A-Discharged on ARNI c) Discharged on ARNI?: Yes d) Discharged on evidence-based Beta dawson(carvedilol, sustained release metoprolol succinate, or bisoprolol)?: Yes e) For LVEF <35%, discharged on Aldosterone antagonist?: N/A (LVEF > or = 35%) 3. Anticoagulant therapy for permanect/persistent/paraoxysmal Afib or Aflutter: Yes Follow-up Appointment scheduled within 7 days?: Yes
[2019-08-09 12:45] VITALS: BP 164/98
--- NOTE | 2019-08-09 18:10 | PDOC PROGRESS REPORT ---
Subjective Progress Note for:: 08/07/19 Subjective:: Patient seems to be doing better with gradual improvement. Pt is denying any chest arm or neck discomfort. Patient denying any PND, orthopnea. Patient denied any sustained palpitations, dizziness, syncope, near syncope. Patient denying any fever chills. Patient denying any other significant discomfort. Patient is maintaining atrial fibrillation. Heart rate noted to be intermittently high. She does get intermittent IV Cardizem however we are gradually optimizing rate control by increasing metoprolol succinate dose. Review of systems: Rest review of systems negative. Medications: Medications have been reviewed. Reason For Visit: AFIB HEART FAILURE Physical Exam Vital Signs: Temp Pulse Resp BP Pulse Ox 97.7 F 92 20 132/60 H 93 08/08/19 19:37 08/08/19 19:37 08/08/19 19:37 08/08/19 19:37 08/08/19 19:37 Intake & Output 08/07/19 08/08/19 08/09/19 06:59 06:59 06:59 Intake Total 448 920 720 Balance 448 920 720 Weight 60.3 kg 60.3 kg Exam: GENERAL: well-nourished and in no acute distress. Alert and oriented x3 HEAD: Atraumatic, normocephalic. EYES: HARI, sclera anicteric, conjunctiva are normal. ENT: Moist mucous membranes. No oral ulcerations or bleeding gums noted. No obvious ear, nose or throat abnormalities noted. NECK: supple without lymphadenopathy. Trachea is central. No cervical or axillary lymphadenopathy noted. Carotids are 2+, JVD WNL LUNGS: Breath sounds clear bilaterally. No wheezes rales or rhonchi noted. No significant dullness noted on percussion. CHEST: Palpation of the chest wall shows no significant chest wall tenderness. 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 ABDOMEN: Soft, no significant tenderness appreciated, normoactive bowel sounds. No guarding, no rebound. No rigidity noted . No masses appreciated. EXTREMITIES: Pedal pulses are 1-2+, no calf tenderness noted. No clubbing or cyanosis. negative pedal edema noted NEUROLOGICAL: Focused neurological exam showed no significant neurologic deficit. Normal speech, no focal weakness appreciated. PSYCH: Normal mood, normal affect. Judgment and insight within normal limits. SKIN: No significant ecchymosis, skin is noted to be warm. MUSCULOSKELETAL EXAM: No significant acute joint swelling noted. Results Laboratory Results: 08/07/19 04:13 08/07/19 04:13 08/07/19 08/07/19 04:13 04:13 Retic Count (auto) 1.86 Iron 18.3 L TIBC 333 % Saturation 5 Ferritin 36.70 Vitamin B12 654.0 Folate 11.60 08/06/19 08/06/19 08/06/19 04:25 04:25 04:25 Creatine Kinase 29 L CK-MB (CK-2) 0.90 Troponin I 0.019 NT-Pro-B Natriuret Pep [id number] H 08/06/19 08/06/19 08/06/19 07:08 13:44 17:46 Creatine Kinase CK-MB (CK-2) Troponin I 0.022 0.023 0.021 NT-Pro-B Natriuret Pep EKG Comments: Atrial fibrillation with intermittent rapid ventricular response Impressions: Chest X-Ray 08/06/19 00:00 IMPRESSION: Developing bilateral lower lung opacities consistent with bilateral pleural effusions and bilateral lower lung atelectasis and/or pneumonia. Assessment & Plan - Diagnosis (1) Atrial fibrillation with rapid ventricular response Is this a current diagnosis for this admission?: Yes (2) CHF (congestive heart failure) Qualifiers: Heart failure type: unspecified Heart failure chronicity: acute on chronic Qualified Code(s): I50.9 - Heart failure, unspecified Is this a current diagnosis for this admission?: Yes (3) COPD (chronic obstructive pulmonary disease) Qualifiers: COPD type: unspecified COPD Qualified Code(s): J44.9 - Chronic obstructive pulmonary disease, unspecified Is this a current diagnosis for this admission?: Yes (4) Hypertension Qualifiers: Hypertension type: essential hypertension Qualified Code(s): I10 - Essential (primary) hypertension Is this a current diagnosis for this admission?: Yes (5) Stented coronary artery Is this a current diagnosis for this admission?: Yes (6) Anemia Qualifiers: Anemia type: iron deficiency Iron deficiency anemia type: chronic blood loss Qualified Code(s): D50.0 - Iron deficiency anemia secondary to blood loss (chronic) Is this a current diagnosis for this admission?: Yes - Notes Notes: Congestive heart failure: Seems improved. Precipitating factors could be atrial fibrillation with rapid ventricular response, most likely. Patient not showing any evidence of volume overload on exam. Chronic atrial fibrillation: Patient also is noted to be anemic with low hemoglobin. Continue with rate control which is being optimized. If there is evidence of active bleeding could hold Eliquis. Otherwise continue with it. Recommend hematology oncology consultation in view of low ferritin level. Cardiomyopathy: Patient medical regimen reviewed and she seems to be very satisfactory. I have switched patient from metoprolol tartrate to metoprolol succinate. This is recommended according to AHA recommendations for cardiomyopathy. Other alternative could have been carvedilol but patient seems to have history of COPD. Patient currently on metoprolol succinate 100 mg p.o. twice daily which is the maximum dose.. We will continue to follow. Will repeat EKG in the morning. As usual I thank Deborah Cruz very much for the kind referral copy to her - Time Time with patient: Greater than 35 minutes Medications reviewed and adjusted accordingly: Yes - Recommended metoprolol succinate dose to be increased 100 mg twice a day.
--- NOTE | 2019-08-09 18:18 | PDOC PROGRESS REPORT ---
Subjective Progress Note for:: 08/08/19 Subjective:: Patient seems to be doing better with gradual improvement. Pt is denying any chest arm or neck discomfort. Patient denying any PND, orthopnea. Patient denied any sustained palpitations, dizziness, syncope, near syncope. Patient denying any fever chills. Patient denying any other significant discomfort. Patient is maintaining atrial fibrillation, heart rate coming under better control. Review of systems: Rest review of systems negative. Medications: Medications have been reviewed. Reason For Visit: AFIB HEART FAILURE Physical Exam Vital Signs: Temp Pulse Resp BP Pulse Ox 97.7 F 92 20 132/60 H 93 08/08/19 19:37 08/08/19 19:37 08/08/19 19:37 08/08/19 19:37 08/08/19 19:37 Intake & Output 08/07/19 08/08/19 08/09/19 06:59 06:59 06:59 Intake Total 448 920 720 Balance 448 920 720 Weight 60.3 kg 60.3 kg Exam: GENERAL: well-nourished and in no acute distress. Alert and oriented x3 HEAD: Atraumatic, normocephalic. EYES: HARI, sclera anicteric, conjunctiva are normal. ENT: Moist mucous membranes. No oral ulcerations or bleeding gums noted. No obvious ear, nose or throat abnormalities noted. NECK: supple without lymphadenopathy. Trachea is central. No cervical or axillary lymphadenopathy noted. Carotids are 2+, JVD WNL LUNGS: Breath sounds clear bilaterally. No wheezes rales or rhonchi noted. No significant dullness noted on percussion. CHEST: Palpation of the chest wall shows no significant chest wall tenderness. 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 ABDOMEN: Soft, no significant tenderness appreciated, normoactive bowel sounds. No guarding, no rebound. No rigidity noted . No masses appreciated. EXTREMITIES: Pedal pulses are 1-2+, no calf tenderness noted. No clubbing or cyanosis. negative pedal edema noted NEUROLOGICAL: Focused neurological exam showed no significant neurologic deficit. Normal speech, no focal weakness appreciated. PSYCH: Normal mood, normal affect. Judgment and insight within normal limits. SKIN: No significant ecchymosis, skin is noted to be warm. MUSCULOSKELETAL EXAM: No significant acute joint swelling noted. Results Laboratory Results: 08/07/19 04:13 08/07/19 04:13 08/07/19 08/07/19 04:13 04:13 Retic Count (auto) 1.86 Iron 18.3 L TIBC 333 % Saturation 5 Ferritin 36.70 Vitamin B12 654.0 Folate 11.60 08/06/19 08/06/19 08/06/19 04:25 04:25 04:25 Creatine Kinase 29 L CK-MB (CK-2) 0.90 Troponin I 0.019 NT-Pro-B Natriuret Pep [id number] H 08/06/19 08/06/19 08/06/19 07:08 13:44 17:46 Creatine Kinase CK-MB (CK-2) Troponin I 0.022 0.023 0.021 NT-Pro-B Natriuret Pep EKG Comments: Atrial fibrillation with intermittent rapid ventricular response Impressions: Chest X-Ray 08/06/19 00:00 IMPRESSION: Developing bilateral lower lung opacities consistent with bilateral pleural effusions and bilateral lower lung atelectasis and/or pneumonia. Assessment & Plan - Diagnosis (1) Atrial fibrillation with rapid ventricular response Is this a current diagnosis for this admission?: Yes (2) CHF (congestive heart failure) Qualifiers: Heart failure type: unspecified Heart failure chronicity: acute on chronic Qualified Code(s): I50.9 - Heart failure, unspecified Is this a current diagnosis for this admission?: Yes (3) COPD (chronic obstructive pulmonary disease) Qualifiers: COPD type: unspecified COPD Qualified Code(s): J44.9 - Chronic obstructive pulmonary disease, unspecified Is this a current diagnosis for this admission?: Yes (4) Hypertension Qualifiers: Hypertension type: essential hypertension Qualified Code(s): I10 - Essential (primary) hypertension Is this a current diagnosis for this admission?: Yes (5) Stented coronary artery Is this a current diagnosis for this admission?: Yes (6) Anemia Qualifiers: Anemia type: iron deficiency Iron deficiency anemia type: chronic blood loss Qualified Code(s): D50.0 - Iron deficiency anemia secondary to blood loss (chronic) Is this a current diagnosis for this admission?: Yes - Notes Notes: CHF: Patient noted to be in CHF but now well compensated. Precipitating factors could be atrial fibrillation with rapid ventricular response, most likely. Evidence of fluid overload. Atrial fibrillation: Patient also is noted to be anemic with low hemoglobin. At this point agree with diuretic therapy and rate control. If there is evidence of active bleeding could hold Eliquis. Otherwise continue with it. Hematology oncology consultation reviewed. Agree with their management plans. Follow hemoglobin closely. Cardiomyopathy: Patient medical regimen reviewed and she seems to be very satisfactory. Currently on 200 mg total dose of metoprolol succinate. This is recommended according to AHA recommendations for cardiomyopathy. Other alternative could have been carvedilol but patient seems to have history of COPD. Continue with SNRI agent. Titrate to maximum tolerated dose. If needed could add hydralazine nitrate combination. We will continue to follow. As usual I thank Deborah Cruz very much for the kind referral copy to her - Time Time with patient: Greater than 35 minutes Medications reviewed and adjusted accordingly: Yes - Medications reviewed.
--- NOTE | 2019-08-10 00:23 | EKG REPORT ---
SEVERITY:- ABNORMAL ECG - ATRIAL FIBRILLATION PROBABLE LEFT VENTRICULAR HYPERTROPHY : Confirmed by: Eunice Servin 10-Aug-2019 00:23:03
== END 2019-08-09 13:10 | DRG 308 ==
LOC: ER 04:06 → EH 06:14 → INTOOBSV 06:14 → 3N 09:24 → OBSVTOIN 12:00
PROVIDERS: ADMIT Internal Medicine; ATTEND Internal Medicine
DX: I48.21 Permanent atrial fibrillation (principal); I50.23 Acute on chronic systolic (congestive) heart failure; J96.10 Chronic respiratory failure, unspecified whether with hypoxia or hypercapnia; K50.90 Crohn's disease, unspecified, without complications; I11.0 Hypertensive heart disease with heart failure; I50.9 Heart failure, unspecified; K21.9 Gastro-esophageal reflux disease without esophagitis; R00.1 Bradycardia, unspecified; D50.0 Iron deficiency anemia secondary to blood loss (chronic); F32.9 Major depressive disorder, single episode, unspecified; F17.200 Nicotine dependence, unspecified, uncomplicated; E78.5 Hyperlipidemia, unspecified; M19.90 Unspecified osteoarthritis, unspecified site; J44.9 Chronic obstructive pulmonary disease, unspecified; Z99.81 Dependence on supplemental oxygen; Z88.0 Allergy status to penicillin; Z88.1 Allergy status to other antibiotic agents; Z88.8 Allergy status to other drugs, medicaments and biological substances; Z88.2 Allergy status to sulfonamides; Z82.49 Family history of ischemic heart disease and other diseases of the circulatory system; Z82.3 Family history of stroke; Z83.3 Family history of diabetes mellitus; Z80.1 Family history of malignant neoplasm of trachea, bronchus and lung; Z80.0 Family history of malignant neoplasm of digestive organs; I25.10 Atherosclerotic heart disease of native coronary artery without angina pectoris; Z95.5 Presence of coronary angioplasty implant and graft; I25.2 Old myocardial infarction; I25.5 Ischemic cardiomyopathy; Z86.73 Personal history of transient ischemic attack (TIA), and cerebral infarction without residual deficits; Z85.828 Personal history of other malignant neoplasm of skin; Z79.02 Long term (current) use of antithrombotics/antiplatelets; Z79.51 Long term (current) use of inhaled steroids; Z79.899 Other long term (current) drug therapy
CPT/HCPCS: 36415; 71045; 80048; 80053; 82550; 82553; 82607; 82728; 82746; 83540; 83550; 83735; 83880; 84443; 84484; 85025; 85027; 85045; 85610; 87070; 87880; 93005; 93010; 96374; 96375; 99291; G0378; J1644; J1940; J2405; J3490; J7050; Q0138

== ENCOUNTER 2019-08-17 10:11 | Inpatient (IN) | payer MEDICARE ==
[2019-08-17 11:22] LABS: VENOUS BLOOD BASE EXCESS 6.8 mmol/L; VENOUS BLOOD HCO3 32.3 mmol/L (20-32); VENOUS BLOOD PCO2 51.2 mmHg (35-63); VENOUS BLOOD PH 7.42 (7.30-7.42)
[2019-08-17 11:24] LABS: ABSOLUTE LYMPHOCYTES (AUTO) 0.8 10^3/uL (0.5-4.7); ABSOLUTE MONOCYTES (AUTO) 0.4 10^3/uL (0.1-1.4); ABSOLUTE NEUT (AUTO) 8.2 10^3/uL (1.7-8.2); BASOPHILS % (AUTO) 0.4 % (0-2); EOSINOPHILS % (AUTO) 0.2 % (0-6); HEMATOCRIT 27.9 % (36.0-47.0); HEMOGLOBIN 9.1 g/dL (12.0-15.5); LYMPHOCYTES % (AUTO) 8.3 % (13-45); MEAN CORPUSCULAR HEMOGLOBIN 28.1 pg (27.0-33.4); MEAN CORPUSCULAR HGB CONC 32.4 g/dL (32.0-36.0); MEAN CORPUSCULAR VOLUME 87 fl (80-97); MONOCYTES % (AUTO) 4.1 % (3-13); PLATELET COUNT 332 10^3/uL (150-450); RED BLOOD COUNT 3.22 10^6/uL (3.72-5.28); RED CELL DISTRIBUTION WIDTH 17.8 % (11.5-14.0); TOTAL CELLS COUNTED % (AUTO) 100 %; WHITE BLOOD COUNT 9.4 10^3/uL (4.0-10.5)
[2019-08-17 11:28] LABS: PROTHROMBIN TIME 18.3 SEC (11.4-15.4)
--- NOTE | 2019-08-17 11:30 | RADIOLOGY REPORT (SQ) ---
EXAM DESCRIPTION: CHEST SINGLE VIEW COMPLETED DATE/TIME: 08/17/2019 11:09 am REASON FOR STUDY: ams COMPARISON: AP view of the chest from 08/06/2019. EXAM PARAMETERS: NUMBER OF VIEWS: One view. TECHNIQUE: An AP view of the chest was obtained. RADIATION DOSE: NA LIMITATIONS: None. FINDINGS: LUNGS AND PLEURA: Asymmetric bibasilar (right greater than left) pleural and parenchymal o pacities that obscure the contours of the left hemidiaphragm and blunt the left lateral costophrenic sulci. The pruned appearance of the vasculature in the apices is suggestive of COPD. There is no pn eumothorax. MEDIASTINUM AND HILAR STRUCTURES: No mediastinal or hilar contour abnormality. HEART AND VASCULAR STRUCTURES: Stable enlarged cardiac silhouette. BONES: No acute findings. HARDWARE: None in the chest. OTHER: No other finding. IMPRESSION: Cardiomegaly with asymmetric bibasilar (right greater than left) pleural and parenchymal opacities. Differential considerations include pulmonary edema with bilateral pleural effusions and bibasilar atelectasis and multifocal pneumonia with bilateral parapneumonic effusions. TECHNICAL DOCUMENTATION: JOB ID: [id number] [employer]- All Rights Reserved Reading location - IP/workstation name: [email or web address]
[2019-08-17 11:43] LABS: ALBUMIN 2.9 g/dL (3.5-5.0); ALKALINE PHOSPHATASE 75 U/L (38-126); ANION GAP 7 (5-19); ASPARTATE AMINO TRANSFERASE 16 U/L (14-36); BILIRUBIN,DIRECT 0.2 mg/dL (0.0-0.4); BILIRUBIN,TOTAL 0.3 mg/dL (0.2-1.3); BLOOD UREA NITROGEN 25 mg/dL (7-20); CALCIUM 8.8 mg/dL (8.4-10.2); CARBON DIOXIDE 32 mmol/L (22-30); CHLORIDE 99 mmol/L (98-107); GLUCOSE 96 mg/dL (75-110); TOTAL PROTEIN 5.7 g/dL (6.3-8.2)
[2019-08-17 11:55] LABS: TROPONIN I 0.013 ng/mL
[2019-08-17] MEDS ORDERED: FUROSEMIDE INJ/PF 20 MG/2 ML SDV IV ONE (12:20)
--- NOTE | 2019-08-17 12:29 | ER Document Report ---
ED General - General Chief Complaint: Shortness Of Breath Stated Complaint: DIFFICULTY BREATHING Time Seen by Provider: 08/17/19 10:23 TRAVEL OUTSIDE OF THE [place] IN LAST 30 DAYS: No - HPI Notes: Patient is an 83-year-old female who presents to the emergency department for evaluation from [facility]. In short she is a very poor historian. She was sent in for increased oxygen requirement, which she does not normally wear, as well as some complaints of abdominal pain and edema. According to the patient she has abdominal pain all of the time. She points to her entire abdomen. She states she does feel short of breath. She is had a minimal cough, but states that is really not different than normal. No fartun fevers to her knowledge. - Related Data Allergies/Adverse Reactions: prednisone [Prednisone] Allergy (Unknown, Verified 04/10/19 17:23) cephalexin [Cephalexin] Allergy (Verified 05/08/19 07:45) ciprofloxacin [From Cipro] Allergy (Verified 04/10/19 17:23) cortisone [Cortisone] Allergy (Verified 04/10/19 17:23) Penicillins Allergy (Verified 04/10/19 17:23) phenazopyridine [Phenazopyridine] Allergy (Verified 04/10/19 17:23) Sulfa (Sulfonamide Antibiotics) Allergy (Verified 04/10/19 17:23) sulfamethoxazole [From Bactrim] Allergy (Verified 04/10/19 17:23) tramadol HCl [From Ultram] Allergy (Verified 04/10/19 17:23) trimethoprim [From Bactrim] Allergy (Verified 04/10/19 17:23) Past Medical History - General Information source: Patient, Outside Facility Records - Social History Smoking Status: Former Smoker Chew tobacco use (# tins/day): No Frequency of alcohol use: None Drug Abuse: None Family History: CAD - Father, COPD - Brother, CVA - Mother, DM, Hypertension, Malignancy - 1 sister colon cancer and another sister lung cancer Patient has suicidal ideation: No Patient has homicidal ideation: No - Past Medical History Cardiac Medical History: Reports: Hx Atrial Fibrillation, Hx Congestive Heart Failure, Hx Coronary Artery Disease - Has had a couple of stents placed in her arteries., Hx Heart Attack - 10/2014, Hx Hypercholesterolemia, Hx Hypertension Denies: Hx DVT, Hx Pulmonary Embolism Pulmonary Medical History: Reports: Hx Asthma, Hx COPD, Hx Pneumonia Neurological Medical History: Reports: 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 Denies: Hx Seizures Endocrine Medical History: Reports: Hx Graves' Disease. Denies: Hx Diabetes Mellitus Type 1, Hx Diabetes Mellitus Type 2, Hx Hyperthyroidism, Hx Hypoth yroidism Renal/ Medical History: Reports: Hx Renal Insufficiency. Denies: Hx Peritoneal Dialysis Malignancy Medical History: Reports: Hx Skin Cancer GI Medical History: Reports: Hx Crohn's Disease, Hx Gastroesophageal Reflux Disease, Hx Hiatal Hernia, Hx Ulcer, Hx Ulcerative Colitis, Hx Colonoscopy. Denies: Hx Cirrhosis, Hx Hepatitis Musculoskeletal Medical History: Reports Hx Arthritis, Denies Hx Gout Skin Medical History: Denies Hx Eczema, Denies Hx Psoriasis Psychiatric Medical History: Reports: Hx Depression Infectious Medical History: Denies: Hx Hepatitis Past Surgical History: Reports: Hx Abdominal Surgery - hernia repair with mesh, Hx Cardiac Catheterization - with stents, Hx Cardiac Surgery - Stent, Hx Coronary Stent - x2, Hx Umbilical Hernia, Other - Skin cancer surgery - Immunizations Hx Diphtheria, Pertussis, Tetanus Vaccination: Yes Hx Pneumococcal Vaccination: 07/08/11 Review of Systems - Review of Systems Respiratory: See HPI Gastrointestinal: See HPI -: Yes All other systems reviewed and negative Physical Exam - Vital signs Vitals: Pulse Ox 95 08/17/19 10:19 - Notes Notes: This is an 83-year-old female who appears her stated age. She is frail, laying in the bed, in no acute distress. She is not tachypneic. Vital signs reviewed, please refer to chart. Head is normocephalic, atraumatic. Left pupil 8 mm, right pupil 4 mm, reactive to light. Neck is supple without meningismus. Heart is irregularly irregular. Lungs reveal diminished breath sounds in bilateral bases. Abdomen is soft, nontender, normoactive bowel sounds throughout. Extremities without cyanosis, clubbing. Pitting edema noted to bilateral ankles and feet. Posterior calves are nontender. Peripheral pulses are equal. Skin is warm and dry. Patient is awake, alert, cooperative with examiner. Course - Re-evaluation Re-evalutation: 08/17/19 12:27 Patient presents emergency department for evaluation. She was placed on oxygen per nasal cannula. She had laboratory investigations, EKG, imaging ordered. Her EKG does show worsening of some lateral ST changes, concerning for possible ischemia versus strain. She was mildly tachycardic at that time at 113. Since then her heart rate is been primarily in the 90s. Blood pressure has been stable. Her oxygen requirements were still increased from baseline. Her chest x-ray is consistent with pulmonary edema, has this her lab work. I do not strongly suspect pneumonia in this patient. She has a chronic cough, has no fever, no leukocytosis. She is given IV Lasix. I spoke with Dr. Lopez, then VICKY Beckman. They will admit the patient to [facility]. - Vital Signs Vital signs: Temp Pulse Resp BP Pulse Ox 98.1 F 24 H 149/77 H 95 08/17/19 10:22 08/17/19 10:22 08/17/19 10:22 08/17/19 10:47 - Laboratory Result Diagrams: 08/17/19 11:07 08/17/19 11:07 Laboratory results interpreted by me: 08/17/19 08/17/19 08/17/19 11:07 11:07 11:07 RBC 3.22 L Hgb 9.1 L Hct 27.9 L RDW 17.8 H Lymph % (Auto) 8.3 L Seg Neutrophils % 87.0 H PT VBG HCO3 Carbon Dioxide 32 H BUN 25 H Est GFR (MDRD) Non-Af 52 L NT-Pro-B Natriuret Pep 81179 H Total Protein 5.7 L Albumin 2.9 L 08/17/19 08/17/19 11:07 11:07 RBC Hgb Hct RDW Lymph % (Auto) Seg Neutrophils % PT 18.3 H VBG HCO3 32.3 H Carbon Dioxide BUN Est GFR (MDRD) Non-Af NT-Pro-B Natriuret Pep Total Protein Albumin - Diagnostic Test Radiology reviewed: Reports reviewed Radiology results interpreted by me: 08/17/19 12:28 Chest X-Ray 08/17/19 10:25 IMPRESSION: Cardiomegaly with asymmetric bibasilar (right greater than left) pleural and parenchymal opacities. Differential considerations include pulmonary edema with bilateral pleural effusions and bibasilar atelectasis and multifocal pneumonia with bilateral parapneumonic effusions. - EKG Interpretation by Me Additional EKG results interpreted by me: 08/17/19 12:28 Atrial fibrillation with a rate of 113 bpm. Normal axis. IVCD. Anterolateral ST changes of the ST segment concerning for ischemia, slight worsening when compared to prior study performed recently. Discharge - Discharge Clinical Impression: CHF (congestive heart failure), Hypoxia Condition: Stable Disposition: ADMITTED INPATIENT Admitting Provider: John (Hospitalist) - VICKY Beckman Unit Admitted: [facility]
[2019-08-17] MEDS ORDERED: ONDANSETRON HCL INJ/PF 4 MG/2 ML SDV IV PRN (13:01)
[2019-08-17] MEDS ORDERED: ONDANSETRON 4 MG TAB.RAPDIS PO PRN (13:01)
[2019-08-17] MEDS ORDERED: OXYBUTYNIN CHLORIDE 5 MG TABLET PO ONE (13:14)
--- NOTE | 2019-08-17 13:24 | PDOC H&P ---
History of Present Illness Admission Date/PCP: 08/17/19 13:00 CARMELA RESENDIZ History of Present Illness: CINTHYA DANIELLE is a 83 year old female who comes from [place] group home/rehab for increased shortness of breath and hypoxia. Patient's son says that today her oxygen saturation was lower than normal and that he noticed she had more fluid in her legs. Patient has a history of congestive heart failure. Patient does not appear to be in any extreme distress today. Patient was recently discharged from the hospital here 08/09/2019. That time she was seen for tachycardia and atrial fib. Within the last 2 to 3 months patient has had a cardiac stent placed at [facility], patient is also been seen at [facility] cardiac follow-up. Patient once again does not seem to be in any significant respiratory distress. She is O2 sat in the emergency room is 95% on 2 L Past Medical History Cardiac Medical History: Reports: Atrial Fibrillation, Congestive Heart Failure, Coronary Artery Disease - Has had a couple of stents placed in her arteries., Myocardial Infarction - 10/2014, Hyperlipidema, Hypertension Denies: DVT, Pulmonary Embolism Pulmonary Medical History: Reports: Asthma, Chronic Obstructive Pulmonary Disease (COPD), Pneumonia Neurological Medical History: Denies: Seizures Endocrine Medical History: Denies: Diabetes Mellitus Type 1, Diabetes Mellitus Type 2, Hyperthyroidism, Hypothyroidism Malignancy Medical History: Reports: Skin Cancer GI Medical History: Reports: Crohn's Disease, Gastroesophageal Reflux Disease, Hiatal Hernia, Ulcerative Colitis Denies: Cirrhosis, Hepatitis Musculoskeltal Medical History: Reports: Arthritis Denies: Gout Skin Medical History: Denies: Eczema, Psoriasis Psychiatric Medical History: Reports: Depression Hematology: Reports: Anemia - Chronic Denies: Bleeding Tendencies Past Surgical History Past Surgical History: Reports: Cardiac Catheterization - with stents, Coronary Stent - x2, Other - Skin cancer surgery Social History Smoking Status: Former Smoker Electronic Cigarette use?: No Frequency of Alcohol Use: None Hx Recreational Drug Use: No Drugs: None Hx Prescription Drug Abuse: No - Advance Directive Resuscitation Status: Full Code Family History Family History: CAD - Father, COPD - Brother, CVA - Mother, DM, Hypertension, Malignancy - 1 sister colon cancer and another sister lung cancer Parental Family History Reviewed: No Children Family History Reviewed: No Sibling(s) Family History Reviewed.: No Medication/Allergy Home Medications: Duloxetine HCl [Cymbalta 20 mg Capsule.dr] 20 mg PO DAILY 06/03/19 Oxybutynin Chloride [Ditropan Xl] 10 mg PO DAILY 06/03/19 Acetaminophen [Tylenol] 650 mg PO Q4HP PRN 08/06/19 Apixaban [Eliquis 2.5 mg Tablet] 2.5 mg PO QPM 08/06/19 Budesonide/Formoterol Fumarate [Symbicort HFA 160-4.5 mcg Inhaler 6 gm] 2 puff IH Q12 08/06/19 Calcitriol [Rocaltrol 0.25 mcg Capsule] 0.25 mcg PO MOWEFR@1000 08/06/19 Clopidogrel Bisulfate [Plavix 75 mg Tablet] 75 mg PO DAILY 08/06/19 Ferrous Sulfate [Feosol 325 mg Tablet] 325 mg PO DAILY 08/06/19 Furosemide [Lasix 40 mg Tablet] 40 mg PO QAM 08/06/19 Ipratropium/Albuterol Sulfate [Duoneb 3 ml Ampul] 3 ml NEB RTQ4HP PRN 08/06/19 Lidocaine [Lidoderm 5% (700 mg) Transdermal Patch] 1 patch TP DAILY MDD LOWER BACK 08/06/19 Magnesium Oxide [Mag-Ox 400 mg Tablet] 400 mg PO DAILY 08/06/19 Melatonin [Melatonin 3 mg Tablet] 6 mg PO HSP PRN 08/06/19 Mesalamine [Lialda] 2.4 gm PO DAILY 08/06/19 Omeprazole 20 mg PO DAILY 08/06/19 Pantoprazole Sodium [Protonix [address] Tablet] 40 mg PO QHS 08/06/19 Rosuvastatin Calcium [Crestor] 10 mg PO DAILY 08/06/19 Fluticasone Propionate [Flonase Nasal [place] 50 Mcg/[place] 16 gm] 1 spray NASL Q12 #1 spray.pump 08/09/19 Metoprolol Succinate [Toprol Xl 50 mg Tab.sr] 100 mg PO Q12 #120 tab.sr.24h 08/27 Sacubitril/Valsartan [Entresto 24 mg/26 mg Tablet] 1 tab PO BID #60 tablet 08/09/19 Allergies/Adverse Reactions: prednisone [Prednisone] Allergy (Unknown, Verified 04/10/19 17:23) cephalexin [Cephalexin] Allergy (Verified 05/08/19 07:45) ciprofloxacin [From Cipro] Allergy (Verified 04/10/19 17:23) cortisone [Cortisone] Allergy (Verified 04/10/19 17:23) Penicillins Allergy (Verified 04/10/19 17:23) phenazopyridine [Phenazopyridine] Allergy (Verified 04/10/19 17:23) Sulfa (Sulfonamide Antibiotics) Allergy (Verified 04/10/19 17:23) sulfamethoxazole [From Bactrim] Allergy (Verified 04/10/19 17:23) tramadol HCl [From Ultram] Allergy (Verified 04/10/19 17:23) trimethoprim [From Bactrim] Allergy (Verified 04/10/19 17:23) Review of Systems Constitutional: ABSENT: chills, fever(s), headache(s), weight gain, weight loss Cardiovascular: ABSENT: chest pain, dyspnea on exertion, edema, orthropnea, palpitations Respiratory: PRESENT: dyspnea Neurological: ABSENT: abnormal gait, abnormal speech, confusion, dizziness, focal weakness, syncope Psychiatric: ABSENT: anxiety, depression, homidical ideation, suicidal ideation Physical Exam Vital Signs: Temp Pulse Resp BP Pulse Ox 98.1 F 24 H 149/77 H 95 08/17/19 10:22 08/17/19 10:22 08/17/19 10:22 08/17/19 10:47 Intake & Output 08/16/19 08/17/19 08/18/19 06:59 06:59 06:59 Weight 63.5 kg General appearance: PRESENT: no acute distress, other - Patient does not appear to be physically short of breath Respiratory exam: PRESENT: rales - Slight in both bases Cardiovascular exam: PRESENT: irregular rhythm - Irregular heartbeat Neurological exam: PRESENT: alert, awake, oriented to person, oriented to place, oriented to time, oriented to situation, CN II-XII grossly intact. ABSENT: motor sensory deficit Psychiatric exam: PRESENT: unusual affect, other - Some elements of dementia, mild Results Laboratory Results: 08/17/19 11:07 08/17/19 11:07 08/17/19 08/17/19 08/17/19 11:07 11:07 11:07 WBC 9.4 RBC 3.22 L Hgb 9.1 L Hct 27.9 L MCV 87 MCH 28.1 MCHC 32.4 RDW 17.8 H Plt Count 332 Seg Neutrophils % 87.0 H VBG pH 7.42 VBG pCO2 51.2 VBG HCO3 32.3 H VBG Base Excess 6.8 Sodium 137.6 Potassium 4.0 Chloride 99 Carbon Dioxide 32 H Anion Gap 7 BUN 25 H Creatinine 1.02 Est GFR ( Amer) > 60 Glucose 96 Calcium 8.8 Magnesium 2.1 Total Bilirubin 0.3 AST 16 Alkaline Phosphatase 75 Total Protein 5.7 L Albumin 2.9 L 08/17/19 11:07 Troponin I 0.013 NT-Pro-B Natriuret Pep 61763 H Impressions: Chest X-Ray 08/17/19 10:25 IMPRESSION: Cardiomegaly with asymmetric bibasilar (right greater than left) pleural and parenchymal opacities. Differential considerations include pulmonary edema with bilateral pleural effusions and bibasilar atelectasis and multifocal pneumonia with bilateral parapneumonic effusions. Assessment and Plan - Diagnosis (2) CHF (congestive heart failure) Qualifiers: Is this a current diagnosis for this admission?: Yes (3) Hypoxia Is this a current diagnosis for this admission?: Yes (4) Acute exacerbation of CHF (congestive heart failure) Qualifiers: Heart failure type: unspecified Qualified Code(s): I50.9 - Heart failure, u nspecified Is this a current diagnosis for this admission?: Yes (5) Atrial fibrillation Qualifiers: Atrial fibrillation type: longstanding persistent Qualified Code(s): I48.11 - Longstanding persistent atrial fibrillation Is this a current diagnosis for this admission?: Yes - Plan Summary Summary: Will put patient in hospital for 2 to 3 days and gently diurese her. Try to maintain most of her medications from the group home. contact discharge planning today so she does not lose her bed in rehab. See no good reason to repeat multiple studies at this time other than basic labs and x-rays. According to patient's son her ejection fraction has gone up from 15% to 40% by doing the 1 stent at [facility] [place]. Patient is medically stable to transfer to the floor - Time Time Spent with patient: 35 or more minutes
--- NOTE | 2019-08-17 13:33 | EKG REPORT ---
SEVERITY:- ABNORMAL ECG - ATRIAL FIBRILLATION, V-RATE 80-[address]-T CHANGES- LATERAL LEADS : Confirmed by: Saurabh Monroe MD 17-Aug-2019 13:32:44
[2019-08-17 13:55] LABS: APPEARANCE,URINE CLEAR; BILIRUBIN,URINE NEGATIVE (NEGATIVE); COLOR,URINE YELLOW; GLUCOSE, URINE NEGATIVE (NEGATIVE); KETONES,URINE NEGATIVE (NEGATIVE); LEUKOCYTE ESTERASE,URINE NEGATIVE (NEGATIVE); NITRITE,URINE NEGATIVE (NEGATIVE); PROTEIN,URINE 30 mg/dL (NEGATIVE); URINE SPECIFIC GRAVITY 1.015; UROBILINOGEN,URINE NEGATIVE mg/dL (<2.0)
[2019-08-17] MEDS: SACUBITRIL/VALSARTAN 24 MG/26 MG TABLET PO SCH (17:29)
[2019-08-17] MEDS: ACETAMINOPHEN 325 MG TABLET PO PRN (20:35)
[2019-08-17] MEDS: METOPROLOL SUCCINATE 50 MG TAB.SR.24H PO SCH (21:18)
[2019-08-17] MEDS: FUROSEMIDE INJ/PF 20 MG/2 ML SDV IV SCH (21:18)
[2019-08-17] MEDS ORDERED: APIXABAN 2.5 MG TABLET PO SCH (22:00)
[2019-08-18 05:07] LABS: ABSOLUTE LYMPHOCYTES (AUTO) 1.1 10^3/uL (0.5-4.7); ABSOLUTE MONOCYTES (AUTO) 0.4 10^3/uL (0.1-1.4); ABSOLUTE NEUT (AUTO) 6.9 10^3/uL (1.7-8.2); BASOPHILS % (AUTO) 0.5 % (0-2); EOSINOPHILS % (AUTO) 0.4 % (0-6); HEMATOCRIT 27.8 % (36.0-47.0); HEMOGLOBIN 9.1 g/dL (12.0-15.5); LYMPHOCYTES % (AUTO) 12.7 % (13-45); MEAN CORPUSCULAR HEMOGLOBIN 28.5 pg (27.0-33.4); MEAN CORPUSCULAR HGB CONC 32.9 g/dL (32.0-36.0); MEAN CORPUSCULAR VOLUME 87 fl (80-97); MONOCYTES % (AUTO) 4.9 % (3-13); PLATELET COUNT 310 10^3/uL (150-450); RED BLOOD COUNT 3.21 10^6/uL (3.72-5.28); RED CELL DISTRIBUTION WIDTH 17.9 % (11.5-14.0); SEGMENTED NEUTROPHILS % (AUTO) 81.5 % (42-78); TOTAL CELLS COUNTED % (AUTO) 100 %; WHITE BLOOD COUNT 8.5 10^3/uL (4.0-10.5)
[2019-08-18 05:30] LABS: ANION GAP 6 (5-19); BLOOD UREA NITROGEN 23 mg/dL (7-20); CALCIUM 8.5 mg/dL (8.4-10.2); CARBON DIOXIDE 31 mmol/L (22-30); CHLORIDE 101 mmol/L (98-107); GLUCOSE 86 mg/dL (75-110); POTASSIUM 3.9 mmol/L (3.6-5.0)
--- NOTE | 2019-08-18 07:23 | EKG REPORT ---
SEVERITY:- ABNORMAL ECG - ATRIAL FIBRILLATION LOW VOLTAGE IN FRONTAL LEADS PROBABLE LEFT VENTRICULAR HYPERTROPHY : Confirmed by: Saurabh Monroe MD 18-Aug-2019 07:22:27
[2019-08-18] MEDS ORDERED: HYDRALAZINE HCL INJ/PF 20 MG/1 ML SDV ONE ×2 (07:57→16:01)
[2019-08-18] MEDS ORDERED: HYDRALAZINE HCL INJ/PF 20 MG/1 ML SDV IV PRN ×2 (07:59→16:08)
[2019-08-18] MEDS ORDERED: LABETALOL HCL INJ 20 MG/4 ML DISP.SYRIN IV ONE (08:21)
[2019-08-18] MEDS ORDERED: MELATONIN 3 MG TABLET PO PRN (08:23)
[2019-08-18] MEDS ORDERED: ONDANSETRON HCL INJ/PF 4 MG/2 ML SDV IV PRN (09:29)
--- NOTE | 2019-08-18 09:37 | RADIOLOGY REPORT (SQ) ---
EXAM DESCRIPTION: CHEST SINGLE VIEW COMPLETED DATE/TIME: 08/18/2019 9:04 am REASON FOR STUDY: C/O SOB/Chest tightness COMPARISON: 08/17/2019. EXAM PARAMETERS: NUMBER OF VIEWS: One view. TECHNIQUE: Single frontal radiographic view of the chest acquired. RADIATION DOSE: NA LIMITATIONS: None. FINDINGS: LUNGS AND PLEURA: Bilateral airspace disease and pleural effusions, right greater than lef t, unchanged. MEDIASTINUM AND HILAR STRUCTURES: No masses. Contour normal. HEART AND VASCULAR STRUCTURES: Cardiomegaly unchanged. BONES: No acute findings. Degenerative changes in the spine. HARDWARE: None in the chest. OTHER: No other significant finding. IMPRESSION: NO CHANGE IN APPEARANCE OF THE CHEST. TECHNICAL DOCUMENTATION: JOB ID: [id number] 2010 [employer]- All Rights Reserved Reading location - IP/workstation name: [email or web address]
[2019-08-18] MEDS: FLUTICASONE/VILANTEROL 200-25 MCG/DOSE IH SCH (09:40)
[2019-08-18] MEDS: OXYBUTYNIN CHLORIDE 5 MG TABLET PO SCH ×2 (09:41→21:34)
[2019-08-18] MEDS: APIXABAN 5 MG TABLET PO SCH ×2 (09:41→21:34)
[2019-08-18] MEDS: DOCUSATE SODIUM 100 MG CAPSULE PO SCH (09:41)
[2019-08-18] MEDS: DULOXETINE HCL 20 MG CAPSULE.DR PO SCH (09:41)
[2019-08-18] MEDS: FUROSEMIDE INJ/PF 20 MG/2 ML SDV IV SCH ×2 (09:42→21:34)
[2019-08-18] MEDS: SACUBITRIL/VALSARTAN 24 MG/26 MG TABLET PO SCH ×2 (09:42→17:10)
[2019-08-18] MEDS: MAGNESIUM OXIDE 400 MG TABLET PO SCH (09:42)
[2019-08-18] MEDS: FERROUS SULFATE 325 MG TABLET PO SCH (09:42)
[2019-08-18] MEDS: METOPROLOL SUCCINATE 50 MG TAB.SR.24H PO SCH ×2 (09:43→21:35)
[2019-08-18] MEDS: CLOPIDOGREL BISULFATE 75 MG TABLET PO SCH (09:43)
[2019-08-18] MEDS ORDERED: CLOPIDOGREL BISULFATE 75 MG TABLET PO SCH (10:00)
--- NOTE | 2019-08-18 10:12 | EKG REPORT ---
SEVERITY:- ABNORMAL ECG - ATRIAL FIBRILLATION, V-RATE 97-170 LOW VOLTAGE IN FRONTAL LEADS PROBABLE LVH WITH SECONDARY REPOL ABNRM : Confirmed by: Saurabh Monroe MD 18-Aug-2019 10:11:13
[2019-08-18] MEDS ORDERED: METOPROLOL TARTRATE PF/INJ 5 MG/5 ML SDV IV PRN (13:17)
[2019-08-18] MEDS ORDERED: QUETIAPINE FUMARATE 25 MG TABLET PO ONE (14:15)
[2019-08-18] MEDS: LINEZOLID 600 MG/300 ML RTUPB IV SCH (15:21)
[2019-08-18] MEDS: ACETAMINOPHEN 325 MG TABLET PO PRN (15:24)
[2019-08-18] MEDS ORDERED: LORAZEPAM INJ 2 MG/1 ML VIAL IV PRN (16:15)
--- NOTE | 2019-08-18 16:23 | PDOC PROGRESS REPORT ---
Subjective Progress Note for:: 08/18/19 Subjective:: CINTHYA DANIELLE is a 83 year old female who comes from [facility] for increased shortness of breath and hypoxia. Patient's son says that today her oxygen saturation was lower than normal and that he noticed she had more fluid in her legs. Patient has a history of congestive heart failure. Patient does not appear to be in any extreme distress today. Patient was recently discharged from the hospital here 08/09/2019. That time she was seen for tachycardia and atrial fib. Within the last 2 to 3 months patient has had a cardiac stent placed at [facility], patient is also been seen at [facility] cardiac follow-up. Patient once again does not seem to be in any significant respiratory distress. She is O2 sat in the emergency room is 95% on 2 L 08/18/2019. Patient noted to be very anxious and agitated and tachycardic but hypertensive, basilar alert and oriented x2, does follow command but attention span is very limited, denies any fever, chills, nausea. Reason For Visit: SHORTNESS OF BREATH,ATRIAL FIB WITH RVR CHRONIC, Physical Exam Vital Signs: Temp Pulse Resp BP Pulse Ox 97.9 F 102 H 16 188/90 H 100 08/18/19 15:55 08/18/19 15:55 08/18/19 15:55 08/18/19 15:55 08/18/19 15:55 Intake & Output 08/17/19 08/18/19 08/19/19 06:59 06:59 06:59 Intake Total 100 Output Total 1275 Balance -1175 Weight 60.2 kg General appearance: PRESENT: no acute distress, mild distress, well-developed, well-nourished Respiratory exam: PRESENT: crackles - Bibasilar crackles, tachypnea. ABSENT: rales, rhonchi, wheezes Cardiovascular exam: PRESENT: irregular rhythm, tachycardia GI/Abdominal exam: PRESENT: normal bowel sounds, soft. ABSENT: distended, guarding, mass, organolmegaly, rebound, tenderness Extremities exam: PRESENT: full ROM. ABSENT: calf tenderness, clubbing, pedal edema Neurological exam: PRESENT: alert, awake, oriented to person, CN II-XII grossly intact. ABSENT: motor sensory deficit Psychiatric exam: PRESENT: agitated, anxious Results Laboratory Results: 08/18/19 04:26 08/18/19 04:26 08/18/19 08/18/19 04:26 04:26 WBC 8.5 RBC 3.21 L Hgb 9.1 L Hct 27.8 L MCV 87 MCH 28.5 MCHC 32.9 RDW 17.9 H Plt Count 310 Seg Neutrophils % 81.5 H Sodium 137.5 Potassium 3.9 Chloride 101 Carbon Dioxide 31 H Anion Gap 6 BUN 23 H Creatinine 0.98 Est GFR ( Amer) > 60 Glucose 86 Calcium 8.5 08/17/19 08/18/19 11:07 04:26 Troponin I 0.013 NT-Pro-B Natriuret Pep 00397 H 78146 H Impressions: Chest X-Ray 08/18/19 00:00 IMPRESSION: NO CHANGE IN APPEARANCE OF THE CHEST. Assessment and Plan - Diagnosis (1) Acute on chronic respiratory failure with hypoxia Is this a current diagnosis for this admission?: Yes Plan: Multifactorial. Most likely due to underlying acute CHF exacerbation complicated by A. fib RVR COPD and pneumonia. Continue telemetry, duo nebs, MAN, LABA, ICS, empiric broad-spectrum IV anti biotics, supplemental oxygen, pulmonary toileting, incentive spirometry, PRN APAP. (2) Chronic paroxysmal atrial fib Is this a current diagnosis for this admission?: Yes Plan: History of chronic paroxysmal A. fib. Anticoagulated with Xarelto. Continue beta-blockers, PRN metoprolol IV. (3) Acute on chronic congestive heart failure Qualifiers: Heart failure type: systolic Qualified Code(s): I50.23 - Acute on chronic systolic (congestive) heart failure Is this a current diagnosis for this admission?: Yes Plan: Acute systolic CHF. proBNP 82874 up from baseline of 12,000. 2D echo 06/11/2019. LVEF 35%. Moderate global hypokinesis of the left ventricle. Cardiac diet, strict in and out, fluid restriction, Entresto, beta-blockers, IV Lasix. (4) Anxiety Is this a current diagnosis for this admission?: Yes Plan: PRN benzos. Monitor for respiratory depression. Avoid if possible agitation. Implement fall precautions. (5) COPD (chronic obstructive pulmonary disease) Qualifiers: COPD type: unspecified COPD Qualified Code(s): J44.9 - Chronic obstructive pulmonary disease, unspecified Is this a current diagnosis for this admission?: Yes Plan: Plan as per #1. (6) Dementia Qualifiers: Alzheimer's disease onset: unspecified onset Dementia behavioral disturbance: with behavioral disturbance Is this a current diagnosis for this admission?: Yes Plan: Supportive measures. Seroquel for behavioral changes. Fall precaution. Outpatient PCP and neurology follow-up. (7) Pneumonia Qualifiers: Pneumonia type: due to unspecified organism Laterality: unspecified laterality Lung location: unspecified part of lung Qualified Code(s): J18.9 - Pneumonia, unspecified organism Is this a current diagnosis for this admission?: Yes Plan: Recent multiple hospitalization. Likely healthcare associated pneumonia. Allergic to cephalosporins, quinolones, and penicillins. We will start on linezolid. Sputum and blood culture. (8) CAD (coronary artery disease) Qualifiers: Coronary Disease-Associated Artery/Lesion type: [place] artery [place] vs. transplanted heart: [place] heart Associated angina: angina presence unspecified Qualified Code(s): I25.10 - Atherosclerotic heart disease of [place] coronary artery without angina pectoris Is this a current diagnosis for this admission?: Yes Plan: Status post recent stent placement. Denies any anginal symptoms. Continue antiplatelets, beta-blockers, statins, HARRISON. (9) Hyperlipidemia Qualifiers: Hyperlipidemia type: unspecified Qualified Code(s): E78.5 - Hyperlipidemia, unspecified Is this a current diagnosis for this admission?: Yes Plan: High intensity statins. LFTs WNL. Outpatient PCP follow-up. - Plan Summary Summary: Will put patient in hospital for 2 to 3 days and gently diurese her. Try to maintain most of her medications from the [facility]. contact discharge planning today so she does not lose her bed in rehab. See no good reason to repeat multiple studies at this time other than basic labs and x-rays. According to patient's son her ejection fraction has gone up from 15% to 40% by doing the 1 stent at [place]. Patient is medically stable to transfer to the floor
[2019-08-19] MEDS: LINEZOLID 600 MG/300 ML RTUPB IV SCH ×2 (05:22→17:02)
[2019-08-19] MEDS: ACETAMINOPHEN 325 MG TABLET PO PRN ×2 (06:03→21:09)
[2019-08-19 08:16] LABS: ABSOLUTE BASOPHILS # (AUTO) 0.1 10^3/uL (0.0-0.2); ABSOLUTE LYMPHOCYTES (AUTO) 1.1 10^3/uL (0.5-4.7); ABSOLUTE MONOCYTES (AUTO) 0.4 10^3/uL (0.1-1.4); ABSOLUTE NEUT (AUTO) 6.3 10^3/uL (1.7-8.2); BASOPHILS % (AUTO) 0.8 % (0-2); EOSINOPHILS % (AUTO) 0.6 % (0-6); HEMATOCRIT 29.7 % (36.0-47.0); HEMOGLOBIN 9.8 g/dL (12.0-15.5); LYMPHOCYTES % (AUTO) 13.7 % (13-45); MEAN CORPUSCULAR HEMOGLOBIN 28.5 pg (27.0-33.4); MEAN CORPUSCULAR VOLUME 86 fl (80-97); MONOCYTES % (AUTO) 5.4 % (3-13); PLATELET COUNT 337 10^3/uL (150-450); RED BLOOD COUNT 3.44 10^6/uL (3.72-5.28); RED CELL DISTRIBUTION WIDTH 18.7 % (11.5-14.0); SEGMENTED NEUTROPHILS % (AUTO) 79.5 % (42-78); TOTAL CELLS COUNTED % (AUTO) 100 %; WHITE BLOOD COUNT 7.9 10^3/uL (4.0-10.5)
[2019-08-19 08:45] LABS: BLOOD UREA NITROGEN 21 mg/dL (7-20); CALCIUM 8.4 mg/dL (8.4-10.2); CARBON DIOXIDE 35 mmol/L (22-30); CHLORIDE 100 mmol/L (98-107); GLUCOSE 87 mg/dL (75-110); POTASSIUM 3.8 mmol/L (3.6-5.0)
[2019-08-19 08:50] LABS: ANION GAP 3 (5-19)
[2019-08-19] MEDS: METOPROLOL SUCCINATE 50 MG TAB.SR.24H PO SCH ×2 (09:26→21:08)
[2019-08-19] MEDS: DULOXETINE HCL 20 MG CAPSULE.DR PO SCH (09:26)
[2019-08-19] MEDS: SACUBITRIL/VALSARTAN 24 MG/26 MG TABLET PO SCH ×2 (09:27→17:02)
[2019-08-19] MEDS: APIXABAN 5 MG TABLET PO SCH ×2 (09:27→21:08)
[2019-08-19] MEDS: FERROUS SULFATE 325 MG TABLET PO SCH (09:27)
[2019-08-19] MEDS: OXYBUTYNIN CHLORIDE 5 MG TABLET PO SCH ×2 (09:27→21:08)
[2019-08-19] MEDS: MAGNESIUM OXIDE 400 MG TABLET PO SCH (09:27)
[2019-08-19] MEDS: CLOPIDOGREL BISULFATE 75 MG TABLET PO SCH (09:28)
[2019-08-19] MEDS: FUROSEMIDE INJ/PF 20 MG/2 ML SDV IV SCH ×2 (09:28→21:08)
[2019-08-19] MEDS: DOCUSATE SODIUM 100 MG CAPSULE PO SCH (09:28)
[2019-08-19] MEDS: CALCITRIOL 0.25 MCG CAPSULE PO SCH (09:28)
[2019-08-19] MEDS: FLUTICASONE/VILANTEROL 200-25 MCG/DOSE IH SCH (09:29)
--- NOTE | 2019-08-19 11:09 | PDOC PROGRESS REPORT ---
Subjective Progress Note for:: 08/19/19 Subjective:: CINTHYA DANIELLE is a 83 year old female who comes from [place] [facility] for increased shortness of breath and hypoxia. Patient's son says that today her oxygen saturation was lower than normal and that he noticed she had more fluid in her legs. Patient has a history of congestive heart failure. Patient does not appear to be in any extreme distress today. Patient was recently discharged from the hospital here 08/09/2019. That time she was seen for tachycardia and atrial fib. Within the last 2 to 3 months patient has had a cardiac stent placed at [facility], patient is also been seen at [facility] cardiac follow-up. Patient once again does not seem to be in any significant respiratory distress. She is O2 sat in the emergency room is 95% on 2 L 08/18/2019. Patient noted to be very anxious and agitated and tachycardic but hypertensive, basilar alert and oriented x2, does follow command but attention span is very limited, denies any fever, chills, nausea. 08/19/2019. No acute events overnight. Patient has been less agitated and anxi ous compared to yesterday, comfortably sitting in bed no apparent distress, cooperative with physical examination however still only oriented to person to complaining of bilateral lower extremity pain. Reason For Visit: SHORTNESS OF BREATH,ATRIAL FIB WITH RVR CHRONIC, Physical Exam Vital Signs: Temp Pulse Resp BP Pulse Ox 97.5 F 37 L 20 153/75 H 96 08/19/19 08:00 08/19/19 08:00 08/19/19 07:38 08/19/19 07:38 08/19/19 08:00 Intake & Output 08/18/19 08/19/19 08/20/19 06:59 06:59 06:59 Intake Total 100 720 Output Total 1275 1925 Balance -1175 -1205 Weight 60.2 kg 58.5 kg General appearance: PRESENT: no acute distress, well-developed, well-nourished Head exam: PRESENT: atraumatic, normocephalic Respiratory exam: PRESENT: crackles. ABSENT: rales, rhonchi, wheezes Cardiovascular exam: PRESENT: RRR. ABSENT: diastolic murmur, rubs, systolic murmur GI/Abdominal exam: PRESENT: normal bowel sounds, soft. ABSENT: distended, guarding, mass, organolmegaly, rebound, tenderness Neurological exam: PRESENT: alert, awake, oriented to person, CN II-XII grossly intact. ABSENT: motor sensory deficit Results Laboratory Results: 08/19/19 04:35 08/19/19 04:35 08/19/19 08/19/19 04:35 04:35 WBC 7.9 RBC 3.44 L Hgb 9.8 L Hct 29.7 L MCV 86 MCH 28.5 MCHC 33.0 RDW 18.7 H Plt Count 337 Seg Neutrophils % 79.5 H Sodium 137.9 Potassium 3.8 Chloride 100 Carbon Dioxide 35 H Anion Gap 3 L BUN 21 H Creatinine 0.84 Est GFR ( Amer) > 60 Glucose 87 Calcium 8.4 08/17/19 08/18/19 08/19/19 11:07 04:26 04:35 Troponin I 0.013 NT-Pro-B Natriuret Pep 39385 H 00136 H 08963 H Impressions: Chest X-Ray 08/18/19 00:00 IMPRESSION: NO CHANGE IN APPEARANCE OF THE CHEST. Assessment and Plan - Diagnosis (1) Acute on chronic respiratory failure with hypoxia Is this a current diagnosis for this admission?: Yes Plan: Improving. SPO2 WNL on 2 L. Multifactorial. Most likely due to underlying acute CHF exacerbation complicated by A. fib RVR COPD and pneumonia. Due 2 IV antibiotics. Day 2 IV linezolid. Cultures negative so far. Continue telemetry, duo nebs, MAN, LABA, ICS, empiric broad-spectrum IV antibiotics, supplemental oxygen, pulmonary toileting, incentive spirometry, PRN APAP. (2) Pneumonia Qualifiers: Pneumonia type: due to unspecified organism Laterality: unspecified laterality Lung location: unspecified part of lung Qualified Code(s): J18.9 - Pneumonia, unspecified organism Is this a current diagnosis for this admission?: Yes Plan: Recent multiple hospitalization. Likely healthcare associated pneumonia. Allergic to cephalosporins, quinolones, and penicillins. Due 2 IV antibiotics. Day 2 IV linezolid. Cultures negative so far. (3) Chronic paroxysmal atrial fib Is this a current diagnosis for this admission?: Yes Plan: History of chronic paroxysmal A. fib. Anticoagulated with Xarelto. Rate controlled. Continue beta-blockers, PRN metoprolol IV. (4) Acute on chronic congestive heart failure Qualifiers: Heart failure type: systolic Qualified Code(s): I50.23 - Acute on chronic systolic (congestive) heart failure Is this a current diagnosis for this admission?: Yes Plan: Acute systolic CHF. proBNP 37438 up from baseline of 12,000. 2D echo 06/11/2019. LVEF 35%. Moderate global hypokinesis of the left ventricle. Cardiac diet, strict in and out, fluid restriction, Entresto, beta-blockers, IV Lasix. (5) Anxiety Is this a current diagnosis for this admission?: Yes Plan: PRN benzos. Monitor for respiratory depression. Avoid if possible agitation. Implement fall precautions. (6) COPD (chronic obstructive pulmonary disease) Qualifiers: COPD type: unspecified COPD Qualified Code(s): J44.9 - Chronic obstructive pulmonary disease, unspecified Is this a current diagnosis for this admission?: Yes Plan: Plan as per #1. (7) Dementia Qualifiers: Alzheimer's disease onset: unspecified onset Dementia behavioral disturbance: with behavioral disturbance Is this a current diagnosis for this admission?: Yes Plan: Supportive measures. Significant improvement with Seroquel for behavioral abnormalities. Seroquel for behavioral changes. Fall precaution. Outpatient PCP and neurology follow-up. (8) CAD (coronary artery disease) Qualifiers: Coronary Disease-Associated Artery/Lesion type: [place] artery [place] vs. transplanted heart: [place] heart Associated angina: angina presence unspecified Qualified Code(s): I25.10 - Atherosclerotic heart disease of [place] coronary artery without angina pectoris Is this a current diagnosis for this admission?: Yes Plan: Status post recent stent placement. Denies any anginal symptoms. Continue antiplatelets, beta-blockers, statins, HARRISON. (9) Hyperlipidemia Qualifiers: Hyperlipidemia type: unspecified Qualified Code(s): E78.5 - Hyperlipidemia, unspecified Is this a current diagnosis for this admission?: Yes Plan: High intensity statins. LFTs WNL. Outpatient PCP follow-up. - Plan Summary Summary: Will put patient in hospital for 2 to 3 days and gently diurese her. Try to maintain most of her medications [facility]. contact discharge planning today so she does not lose her bed in rehab. See no good reason to repeat multiple studies at this time other than basic labs and x-rays. According to patient's son her ejection fraction has gone up from 15% to 40% by doing the 1 stent at [place]. Patient is medically stable to transfer to the floor
[2019-08-19 11:54] LABS: ARTERIAL BLOOD BASE EXCESS 8.9 mmol/L; ARTERIAL BLOOD H2CO3 1.48 mmol/L (1.05-1.35); ARTERIAL BLOOD O2 SATURATION 94.9 % (94-98); ARTERIAL BLOOD PCO2 49.1 mmHg (35-45); ARTERIAL BLOOD PH 7.46 (7.35-7.45); ARTERIAL BLOOD PO2 71.5 mmHg (80-100); ARTERIAL BLOOD TOTAL CO2 35.5 mmol/L (21-25)
[2019-08-19 11:56] LABS: ARTERIAL BLOOD FIO2 4L
--- NOTE | 2019-08-19 15:13 | RADIOLOGY REPORT (SQ) ---
EXAM DESCRIPTION: CT HEAD WITHOUT COMPLETED DATE/TIME: 08/19/2019 2:54 pm REASON FOR STUDY: ams COMPARISON: 08/12/2018. TECHNIQUE: Axial images acquired through the brain without intravenous contrast. Images reviewed wi th bone, brain and subdural windows. Additional sagittal and coronal reconstructions were generated. Images stored on PACS. All CT scanners at this facility use dose modulation, iterative reconstruction, and/or weight based d osing when appropriate to reduce radiation dose to as low as reasonably achievable (ALARA). [facility]: Dose Right [facility]: CareDose [facility]: Dose Right [facility]: Teradose 4D [facility]: Smart [employer] RADIATION DOSE: CT Rad equipment meets quality standard of care and radiation dose reduction techniq ues were employed. CTDIvol: 23.9 mGy. DLP: 434 mGy-cm.mGy. LIMITATIONS: None. FINDINGS: VENTRICLES: Prominent. CEREBRUM: No masses. No hemorrhage. No midline shift. Areas of low density in the white matter mos t likely due to chronic micro-vascular ischemic change. No evidence for acute infarction. CEREBELLUM: No masses. No hemorrhage. No alteration of density. No evidence for acute infarction. EXTRAAXIAL SPACES: Age-related involutional change. No fluid collections. No masses. ORBITS AND GLOBE: No intra- or extraconal masses. Normal contour of globe without masses. CALVARIUM: No fracture. PARANASAL SINUSES: No fluid or mucosal thickening. SOFT TISSUES: No mass or hematoma. OTHER: No other significant finding. IMPRESSION: CHRONIC CHANGES OF ATROPHY AND MICROVASCULAR ISCHEMIA. NO ACUTE PROCESS. EVIDENCE OF ACUTE STROKE: NO. TECHNICAL DOCUMENTATION: JOB ID: [id number] Quality ID # [id number]: Final reports with documentation of one or more dose reduction techniques (e.g., Au tomated exposure control, adjustment of the mA and/or kV according to patient size, use of iterative reconstruction technique) 2010 [employer]- All Rights Reserved Reading location - IP/workstation name: [email or web address]
[2019-08-19] MEDS ORDERED: QUETIAPINE FUMARATE 25 MG TABLET PO SCH (22:00)
[2019-08-20] MEDS: LINEZOLID 600 MG/300 ML RTUPB IV SCH ×2 (05:13→17:29)
[2019-08-20] MEDS: DOCUSATE SODIUM 100 MG CAPSULE PO SCH (09:28)
[2019-08-20] MEDS: OXYBUTYNIN CHLORIDE 5 MG TABLET PO SCH ×2 (09:28→21:28)
[2019-08-20] MEDS: CLOPIDOGREL BISULFATE 75 MG TABLET PO SCH (09:28)
[2019-08-20] MEDS: APIXABAN 5 MG TABLET PO SCH ×2 (09:28→21:28)
[2019-08-20] MEDS: MAGNESIUM OXIDE 400 MG TABLET PO SCH (09:28)
[2019-08-20] MEDS: FERROUS SULFATE 325 MG TABLET PO SCH (09:29)
[2019-08-20] MEDS: FUROSEMIDE INJ/PF 20 MG/2 ML SDV IV SCH ×2 (09:29→21:28)
[2019-08-20] MEDS: METOPROLOL SUCCINATE 50 MG TAB.SR.24H PO SCH ×2 (09:29→21:28)
[2019-08-20] MEDS: FLUTICASONE/VILANTEROL 200-25 MCG/DOSE IH SCH (09:30)
[2019-08-20] MEDS: DULOXETINE HCL 20 MG CAPSULE.DR PO SCH (09:30)
[2019-08-20] MEDS: SACUBITRIL/VALSARTAN 24 MG/26 MG TABLET PO SCH ×2 (09:30→17:29)
[2019-08-20] MEDS: AMLODIPINE BESYLATE 5 MG TABLET PO SCH (10:59)
--- NOTE | 2019-08-20 12:27 | PDOC PROGRESS REPORT ---
Subjective Progress Note for:: 08/20/19 Subjective:: CINTHYA DANIELLE is a 83 year old female who comes from [place] [facility] for increased shortness of breath and hypoxia. Patient's son says that today her oxygen saturation was lower than normal and that he noticed she had more fluid in her legs. Patient has a history of congestive heart failure. Patient does not appear to be in any extreme distress today. Patient was recently discharged from the hospital here 08/09/2019. That time she was seen for tachycardia and atrial fib. Within the last 2 to 3 months patient has had a cardiac stent placed at [facility], patient is also been seen at [facility] cardiac follow-up. Patient once again does not seem to be in any significant respiratory distress. She is O2 sat in the emergency room is 95% on 2 L 08/18/2019. Patient noted to be very anxious and agitated and tachycardic but hypertensive, basilar alert and oriented x2, does follow command but attention span is very limited, denies any fever, chills, nausea. 08/19/2019. No acute events overnight. Patient has been less agitated and anxi ous compared to yesterday, comfortably sitting in bed no apparent distress, cooperative with physical examination however still only oriented to person to complaining of bilateral lower extremity pain. 08/20/2019. No acute events overnight. Reason For Visit: SHORTNESS OF BREATH,ATRIAL FIB WITH RVR CHRONIC, Physical Exam Vital Signs: Temp Pulse Resp BP Pulse Ox 97.5 F 86 19 142/74 H 93 08/20/19 12:10 08/20/19 12:10 08/20/19 12:10 08/20/19 12:10 08/20/19 12:10 Intake & Output 08/19/19 08/20/19 08/21/19 06:59 06:59 06:59 Intake Total 720 1662 Output Total 1925 625 Balance -1205 1037 Weight 58.5 kg 59.9 kg General appearance: PRESENT: no acute distress, well-developed, well-nourished Head exam: PRESENT: atraumatic, normocephalic Respiratory exam: PRESENT: crackles. ABSENT: rales, rhonchi, wheezes GI/Abdominal exam: PRESENT: normal bowel sounds, soft. ABSENT: distended, guarding, mass, organolmegaly, rebound, tenderness Neurological exam: PRESENT: alert, awake, oriented to person, CN II-XII grossly intact. ABSENT: motor sensory deficit Results Laboratory Results: 08/19/19 04:35 08/19/19 04:35 08/17/19 08/18/19 08/19/19 11:07 04:26 04:35 Troponin I 0.013 NT-Pro-B Natriuret Pep 29799 H 44477 H 34668 H 08/20/19 04:43 Troponin I NT-Pro-B Natriuret Pep 9790 H Impressions: Chest X-Ray 08/18/19 00:00 IMPRESSION: NO CHANGE IN APPEARANCE OF THE CHEST. Head CT 08/19/19 11:05 IMPRESSION: CHRONIC CHANGES OF ATROPHY AND MICROVASCULAR ISCHEMIA. NO ACUTE PROCESS. EVIDENCE OF ACUTE STROKE: NO. Assessment and Plan - Diagnosis (1) Acute on chronic respiratory failure with hypoxia Is this a current diagnosis for this admission?: Yes Plan: Improving. SPO2 WNL on 2 L. Multifactorial. Most likely due to underlying acute CHF exacerbation complicated by A. fib RVR COPD and pneumonia. Due 3 IV antibiotics. Day 3 IV linezolid. Cultures negative so far. Continue telemetry, duo nebs, MAN, LABA, ICS, empiric broad-spectrum IV antibiotics, supplemental oxygen, pulmonary toileting, incentive spirometry, PRN BIPAP. (2) Pneumonia Qualifiers: Pneumonia type: due to unspecified organism Laterality: unspecified laterality Lung location: unspecified part of lung Qualified Code(s): J18.9 - Pneumonia, unspecified organism Is this a current diagnosis for this admission?: Yes Plan: Recent multiple hospitalization. Likely healthcare associated pneumonia. Allergic to cephalosporins, quinolones, and penicillins. Due 3 IV antibiotics. Day 3 IV linezolid. Cultures negative so far. (3) Chronic paroxysmal atrial fib Is this a current diagnosis for this admission?: Yes Plan: History of chronic paroxysmal A. fib. Anticoagulated with Xarelto. Rate controlled. Continue beta-blockers, PRN metoprolol IV. (4) Acute on chronic congestive heart failure Qualifiers: Heart failure type: systolic Qualified Code(s): I50.23 - Acute on chronic systolic (congestive) heart failure Is this a current diagnosis for this admission?: Yes Plan: Acute systolic CHF. proBNP 56701 up from baseline of 12,000. 2D echo 06/11/2019. LVEF 35%. Moderate global hypokinesis of the left ventricle. Cardiac diet, strict in and out, fluid restriction, Entresto, beta-blockers, IV Lasix. (5) Anxiety Is this a current diagnosis for this admission?: Yes Plan: PRN benzos. Monitor for respiratory depression. Avoid if possible agitation. Implement fall precautions. (6) COPD (chronic obstructive pulmonary disease) Qualifiers: COPD type: unspecified COPD Qualified Code(s): J44.9 - Chronic obstructive pulmonary disease, unspecified Is this a current diagnosis for this admission?: Yes Plan: Plan as per #1. (7) Dementia Qualifiers: Alzheimer's disease onset: unspecified onset Dementia behavioral disturbance: with behavioral disturbance Is this a current diagnosis for this admission?: Yes Plan: Supportive measures. Significant improvement with Seroquel for behavioral abnormalities. Seroquel for behavioral changes. Fall precaution. Outpatient PCP and neurology follow-up. (8) CAD (coronary artery disease) Qualifiers: Coronary Disease-Associated Artery/Lesion type: [place] artery [place] vs. transplanted heart: [place] heart Associated angina: angina presence unspecified Qualified Code(s): I25.10 - Atherosclerotic heart disease of [place] coronary artery without angina pectoris Is this a current diagnosis for this admission?: Yes Plan: Status post recent stent placement. Denies any anginal symptoms. Continue antiplatelets, beta-blockers, statins, HARRISON. (9) Hyperlipidemia Qualifiers: Hyperlipidemia type: unspecified Qualified Code(s): E78.5 - Hyperlipidemia, unspecified Is this a current diagnosis for this admission?: Yes Plan: High intensity statins. LFTs WNL. Outpatient PCP follow-up. - Plan Summary Summary: Will put patient in hospital for 2 to 3 days and gently diurese her. Try to maintain most of her [facility]. contact discharge planning today so she does not lose her bed in rehab. See no good reason to repeat multiple studies at this time other than basic labs and x-rays. According to patient's son her ejection fraction has gone up from 15% to 40% by doing the 1 stent at [place]. Patient is medically stable to transfer to the floor
[2019-08-20] MEDS ORDERED: QUETIAPINE FUMARATE 25 MG TABLET PO SCH (22:00)
[2019-08-21] MEDS: LINEZOLID 600 MG/300 ML RTUPB IV SCH (05:20)
[2019-08-21] MEDS ORDERED: SACUBITRIL/VALSARTAN 24 MG/26 MG TABLET PO SCH (10:00)
[2019-08-21] MEDS: AMLODIPINE BESYLATE 5 MG TABLET PO SCH (10:17)
[2019-08-21] MEDS: METOPROLOL SUCCINATE 50 MG TAB.SR.24H PO SCH (10:17)
[2019-08-21] MEDS: APIXABAN 5 MG TABLET PO SCH (10:17)
[2019-08-21] MEDS: CLOPIDOGREL BISULFATE 75 MG TABLET PO SCH (10:17)
[2019-08-21] MEDS: DOCUSATE SODIUM 100 MG CAPSULE PO SCH (10:17)
[2019-08-21] MEDS: FUROSEMIDE INJ/PF 20 MG/2 ML SDV IV SCH (10:17)
[2019-08-21] MEDS: MAGNESIUM OXIDE 400 MG TABLET PO SCH (10:17)
[2019-08-21] MEDS: CALCITRIOL 0.25 MCG CAPSULE PO SCH (10:18)
[2019-08-21] MEDS: OXYBUTYNIN CHLORIDE 5 MG TABLET PO SCH (10:18)
[2019-08-21] MEDS: FERROUS SULFATE 325 MG TABLET PO SCH (10:18)
[2019-08-21] MEDS: DULOXETINE HCL 20 MG CAPSULE.DR PO SCH (10:33)
[2019-08-21] MEDS: FLUTICASONE/VILANTEROL 200-25 MCG/DOSE IH SCH (10:33)
--- NOTE | 2019-08-21 10:58 | PDOC TRANSFER SUMMARY ---
General Admission Date/PCP: 08/17/19 13:00 CARMELA RESENDIZ Resuscitation Status: Full Code - Transfer Diagnosis (1) Acute on chronic respiratory failure with hypoxia Is this a current diagnosis for this admission?: Yes (2) Pneumonia Is this a current diagnosis for this admission?: Yes (3) Chronic paroxysmal atrial fib Is this a current diagnosis for this admission?: Yes (4) Acute on chronic congestive heart failure Is this a current diagnosis for this admission?: Yes (5) Anxiety Is this a current diagnosis for this admission?: Yes (6) COPD (chronic obstructive pulmonary disease) Is this a current diagnosis for this admission?: Yes (7) Dementia Is this a current diagnosis for this admission?: Yes (8) CAD (coronary artery disease) Is this a current diagnosis for this admission?: Yes (9) Hyperlipidemia Is this a current diagnosis for this admission?: Yes - Transfer Medications Home Medications: Duloxetine HCl [Cymbalta 20 mg Capsule.dr] 20 mg PO DAILY 06/03/19 Oxybutynin Chloride [Ditropan Xl] 10 mg PO DAILY 06/03/19 Acetaminophen [Tylenol] 650 mg PO Q4HP PRN 08/06/19 Budesonide/Formoterol Fumarate [Symbicort HFA 160-4.5 mcg Inhaler 6 gm] 2 puff IH Q12 08/06/19 Calcitriol [Rocaltrol 0.25 mcg Capsule] 0.25 mcg PO MOWEFR@1000 08/06/19 Clopidogrel Bisulfate [Plavix 75 mg Tablet] 75 mg PO DAILY 08/06/19 Ferrous Sulfate [Feosol 325 mg Tablet] 325 mg PO DAILY 08/06/19 Furosemide [Lasix 40 mg Tablet] 40 mg PO QAM 08/06/19 Ipratropium/Albuterol Sulfate [Duoneb 3 ml Ampul] 3 ml NEB RTQ4HP PRN 08/06/19 Lidocaine [Lidoderm 5% (700 mg) Transdermal Patch] 1 patch TP DAILY MDD LOWER BACK 08/06/19 Magnesium Oxide [Mag-Ox 400 mg Tablet] 400 mg PO DAILY 08/06/19 Melatonin [Melatonin 3 mg Tablet] 6 mg PO HSP PRN 08/06/19 Mesalamine [Lialda] 2.4 gm PO DAILY 08/06/19 Omeprazole 20 mg PO DAILY 08/06/19 Pantoprazole Sodium [Protonix [address] Tablet] 40 mg PO QHS 08/06/19 Rosuvastatin Calcium [Crestor] 10 mg PO DAILY 08/06/19 Apixaban [Eliquis 5 mg Tablet] 5 mg PO Q12 08/17/19 Transfer Medications: Current Medications Acetaminophen (Tylenol 325 Mg Tablet) 650 mg PO Q4HP PRN PRN Reason: FOR PAIN OR TEMP Stop: 09/16/19 13:00 Last Admin: 08/19/19 21:09 Dose: 650 mg Documented by: Amlodipine Besylate (Norvasc 5 Mg Tablet) 5 mg PO DAILY [facility] Stop: 09/19/19 10:29 Last Admin: 08/21/19 10:17 Dose: 5 mg Documented by: Apixaban (Eliquis 5 Mg Tablet) 5 mg PO Q12 KATELYNN Stop: 09/17/19 09:59 Last Admin: 08/21/19 10:17 Dose: 5 mg Documented by: Calcitriol (Rocaltrol 0.25 Mcg Capsule) 0.25 mcg PO MOWEFR@1000 [facility] Stop: 09/18/19 09:59 Last Admin: 08/21/19 10:18 Dose: 0.25 mcg Documented by: Clopidogrel Bisulfate (Plavix 75 Mg Tablet) 75 mg PO DAILY [facility] Stop: 09/17/19 09:59 Last Admin: 08/21/19 10:17 Dose: 75 mg Documented by: Docusate Sodium (Colace 100 Mg Capsule) 100 mg PO DAILY KATELYNN Stop: 09/17/19 09:59 Last Admin: 08/21/19 10:17 Dose: 100 mg Documented by: Duloxetine HCl (Cymbalta 20 Mg Capsule.Dr) 20 mg PO DAILY [facility] Stop: 09/17/19 09:59 Last Admin: 08/21/19 10:33 Dose: 20 mg Documented by: Ferrous Sulfate (Feosol 325 Mg Tablet) 325 mg PO DAILY [facility] Stop: 09/17/19 09:59 Last Admin: 08/21/19 10:18 Dose: 325 mg Documented by: Fluticasone/Vilanterol (Breo 200-25 Mcg Ellipta 14 Dose/Dpi) 1 inh IH DAILY KATELYNN Stop: 09/17/19 09:59 Last Admin: 08/21/19 10:33 Dose: 1 inhaler Documented by: Furosemide (Lasix Inj/Pf 20 Mg/2 Ml Sdv) 20 mg IV Q12 KATELYNN Stop: 09/16/19 21:59 Last Admin: 08/21/19 10:17 Dose: 20 mg Documented by: Hydralazine HCl (Apresoline Inj/Pf 20 Mg/1 Ml Sdv) 5 mg IV Q4HP PRN PRN Reason: FOR SBP >160 Stop: 09/17/19 16:07 Linezolid (Zyvox Rtu 600 Mg/300 Ml Premixed) 600 mg in 300 mls @ 300 mls/hr IV Q12A KATELYNN Stop: 08/25/19 15:29 Last Infusion: 08/21/19 06:26 Dose: Infused Documented by: Lorazepam (Ativan Inj 2 Mg/1 Ml Vial) 0.5 mg IV Q8HP PRN PRN Reason: ANXIETY/AGITATION Stop: 08/25/19 16:14 Magnesium Oxide (Mag-Ox 400 Mg Tablet) 400 mg PO DAILY [facility] Stop: 09/17/19 09:59 Last Admin: 08/21/19 10:17 Dose: 400 mg Documented by: Melatonin (Melatonin 3 Mg Tablet) 6 mg PO HSP PRN PRN Reason: SLEEP OR INSOMNIA Stop: 09/17/19 08:22 Metoprolol Succinate (Toprol Xl 50 Mg Tab.Sr) 100 mg PO Q12 [facility] Stop: 09/16/19 21:59 Last Admin: 08/21/19 10:17 Dose: 100 mg Documented by: Metoprolol Tartrate (Lopressor Inj/Pf 5 Mg/5 Ml Sdv) 2.5 mg IV Q6HP PRN PRN Reason: Give For Hr > [150] Stop: 09/17/19 13:16 Ondansetron HCl (Zofran Odt 4 Mg Tablet) 4 mg PO Q8HP PRN PRN Reason: FOR NAUSEA/VOMITING Stop: 09/16/19 13:00 Ondansetron HCl (Zofran Inj/Pf 4 Mg/2 Ml Sdv) 4 mg IV Q8HP PRN PRN Reason: FOR NAUSEA/VOMITING Stop: 09/17/19 09:28 Oxybutynin Chloride (Ditropan 5 Mg Tablet) 5 mg PO Q12 [facility] Stop: 09/17/19 09:59 Last Admin: 08/21/19 10:18 Dose: 5 mg Documented by: Patient Own Medication (Mesalamine [Lialda]) 2.4 gm PO DAILY [facility] Stop: 09/17/19 09:59 Quetiapine Fumarate (Seroquel 25 Mg Tablet) 12.5 mg PO QHS KATELYNN Stop: 09/19/19 21:59 Last Admin: 08/20/19 21:28 Dose: 12.5 mg Documented by: Sacubitril/Valsartan (Entresto 24 Mg/26 Mg Tablet) 2 tab PO BID KATELYNN Stop: 09/20/19 09:59 Last Admin: 08/21/19 10:34 Dose: 2 tab Documented by: - Allergies Allergies/Adverse Reactions: prednisone [Prednisone] Allergy (Unknown, Verified 04/10/19 17:23) cephalexin [Cephalexin] Allergy (Verified 05/08/19 07:45) ciprofloxacin [From Cipro] Allergy (Verified 04/10/19 17:23) cortisone [Cortisone] Allergy (Verified 04/10/19 17:23) Penicillins Allergy (Verified 04/10/19 17:23) phenazopyridine [Phenazopyridine] Allergy (Verified 04/10/19 17:23) Sulfa (Sulfonamide Antibiotics) Allergy (Verified 04/10/19 17:23) sulfamethoxazole [From Bactrim] Allergy (Verified 04/10/19 17:23) tramadol HCl [From Ultram] Allergy (Verified 04/10/19 17:23) trimethoprim [From Bactrim] Allergy (Verified 04/10/19 17:23) - Diet/Activity Discharge Diet: Cardiac Hospital Course Hospital Course: CINTHYA DANIELLE is a 83 year old female who comes from [place] [facility] for increased shortness of breath and hypoxia. Patient's son says that today her oxygen saturation was lower than normal and that he noticed she had more fluid in her legs. Patient has a history of congestive heart failure. Patient does not appear to be in any extreme distress today. Patient was recently discharged from the hospital here 08/09/2019. That time she was seen for tachycardia and atrial fib. Within the last 2 to 3 months patient has had a cardiac stent placed at [facility], patient is also been seen at [facility] cardiac follow-up. Patient once again does not seem to be in any significant respiratory distress. She is O2 sat in the emergency room is 95% on 2 L 08/18/2019. Patient noted to be very anxious and agitated and tachycardic but hypertensive, basilar alert and oriented x2, does follow command but attention span is very limited, denies any fever, chills, nausea. 08/19/2019. No acute events overnight. Patient has been less agitated and a nxious compared to yesterday, comfortably sitting in bed no apparent distress, cooperative with physical examination however still only oriented to person to complaining of bilateral lower extremity pain. 08/20/2019. No acute events overnight. Reason For Visit: SHORTNESS OF BREATH,ATRIAL FIB WITH RVR CHRONIC, Physical Exam Vital Signs: Temp Pulse Resp BP Pulse Ox 97.5 F 86 19 142/74 H 93 08/20/19 12:10 08/20/19 12:10 08/20/19 12:10 08/20/19 12:10 08/20/19 12:10 Intake & Output 08/19/19 08/20/19 08/21/19 06:59 06:59 06:59 Intake Total 720 1662 Output Total 1925 625 Balance -1205 1037 Weight 58.5 kg 59.9 kg General appearance: PRESENT: no acute distress, well-developed, well-nourished Head exam: PRESENT: atraumatic, normocephalic Respiratory exam: PRESENT: crackles. ABSENT: rales, rhonchi, wheezes GI/Abdominal exam: PRESENT: normal bowel sounds, soft. ABSENT: distended, guarding, mass, organolmegaly, rebound, tenderness Neurological exam: PRESENT: alert, awake, oriented to person, CN II-XII grossly intact. ABSENT: motor sensory deficit Results Laboratory Results: 08/19/19 04:35 08/19/19 04:35 08/17/19 08/18/19 08/19/19 11:07 04:26 04:35 Troponin I 0.013 NT-Pro-B Natriuret Pep 82719 H 74754 H 31067 H 08/20/19 04:43 Troponin I NT-Pro-B Natriuret Pep 9790 H Impressions: Chest X-Ray 08/18/19 00:00 IMPRESSION: NO CHANGE IN APPEARANCE OF THE CHEST. Head CT 08/19/19 11:05 IMPRESSION: CHRONIC CHANGES OF ATROPHY AND MICROVASCULAR ISCHEMIA. NO ACUTE PROCESS. EVIDENCE OF ACUTE STROKE: NO. Assessment and Plan - Diagnosis (1) Acute on chronic respiratory failure with hypoxia Moderate improvement. SPO2 WNL on 1 L. Multifactorial. Most likely due to underlying acute CHF exacerbation complicated by A. fib RVR COPD and pneumonia. Received 4 days of IV antibiotics. Received 4 days of IV linezolid. All cultures remain negative. Was continued on duo nebs, MAN, LABA, ICS, supplemental oxygen, pulmonary toileting, incentive spirometry, PRN BIPAP. Restart LABA, LABA and ICS at the time of discharge. (2) Pneumonia Recent multiple hospitalization. Likely healthcare associated pneumonia. Allergic to cephalosporins, quinolones, and penicillins. Received 4 days of IV antibiotics. Received 4 days of IV linezolid. All cultures remain negative. (3) Chronic paroxysmal atrial fib History of chronic paroxysmal A. fib. Anticoagulated with Xarelto. Rate controlled. Started on beta-blockers and continued on Xarelto. Outpatient PCP and cardiology follow-up. (4) Acute on chronic congestive heart failure Acute systolic CHF. proBNP 71561 up from baseline of 12,000 trended down to 8900. 2D echo 06/11/2019. LVEF 35%. Moderate global hypokinesis of the left ventricle. Continued cardiac diet , strict in and out, fluid restriction, Entresto, beta- blockers, IV Lasix. Continue Entresto, beta-blockers, p.o. Lasix, cardiac diet. Outpatient PCP and cardiology follow-up. (5) Anxiety Started on PRN benzos. Monitored for respiratory depression. Implemented fall precautions. (6) COPD (chronic obstructive pulmonary disease) Plan as per #1. (7) Dementia Supportive measures. Significant improvement with low-dose Seroquel for behavioral abnormalities. Continue low-dose Seroquel for behavioral changes. Fall precaution. Outpatient PCP and neurology follow-up. (8) CAD (coronary artery disease) Status post recent stent placement. Denied any anginal symptoms. Continued on antiplatelets, beta-blockers, statins, HARRISON. (9) Hyperlipidemia High intensity statins. LFTs WNL. Outpatient PCP follow-up. Physical Exam Vital Signs: Temp Pulse Resp BP Pulse Ox 98.3 F 108 H 20 155/86 H 95 08/21/19 04:14 08/21/19 07:00 08/21/19 04:14 08/21/19 04:14 08/21/19 04:14 Intake & Output 08/20/19 08/21/19 08/22/19 06:59 06:59 06:59 Intake Total 1662 860 Output Total 190 1305 Balance 1037 -445 Weight 59.9 kg 61.2 kg General appearance: PRESENT: no acute distress, well-developed, well-nourished Head exam: PRESENT: atraumatic, normocephalic Respiratory exam: PRESENT: clear to auscultation emma. ABSENT: rales, rhonchi, wheezes Cardiovascular exam: PRESENT: RRR. ABSENT: diastolic murmur, rubs, systolic murmur GI/Abdominal exam: PRESENT: normal bowel sounds, soft. ABSENT: distended, guarding, mass, organolmegaly, rebound, tenderness Extremities exam: PRESENT: full ROM. ABSENT: calf tenderness, clubbing, pedal edema Neurological exam: PRESENT: alert, awake, oriented to person, CN II-XII grossly intact. ABSENT: motor sensory deficit Results Laboratory Results: 08/19/19 04:35 08/19/19 04:35 08/17/19 08/18/19 08/19/19 11:07 04:26 04:35 Troponin I 0.013 NT-Pro-B Natriuret Pep 86479 H 22814 H 62710 H 08/20/19 04:43 Troponin I NT-Pro-B Natriuret Pep 9790 H Impressions: Chest X-Ray 08/18/19 00:00 IMPRESSION: NO CHANGE IN APPEARANCE OF THE CHEST. Head CT 08/19/19 11:05
[2019-08-21 14:01] VITALS: BP 142/96
== END 2019-08-21 14:40 | DRG 291 ==
LOC: ER 10:11 → EH 13:00 → 3W 14:33
PROVIDERS: ADMIT Family Medicine; ATTEND Family Medicine
DX: I11.0 Hypertensive heart disease with heart failure (principal); J96.21 Acute and chronic respiratory failure with hypoxia; J18.9 Pneumonia, unspecified organism; I48.11 Longstanding persistent atrial fibrillation; F02.81 Dementia in other diseases classified elsewhere, unspecified severity, with behavioral disturbance; Z79.01 Long term (current) use of anticoagulants; G30.9 Alzheimer's disease, unspecified; I50.23 Acute on chronic systolic (congestive) heart failure; F41.9 Anxiety disorder, unspecified; J44.9 Chronic obstructive pulmonary disease, unspecified; I25.10 Atherosclerotic heart disease of native coronary artery without angina pectoris; E78.5 Hyperlipidemia, unspecified; K44.9 Diaphragmatic hernia without obstruction or gangrene; M19.90 Unspecified osteoarthritis, unspecified site; F32.9 Major depressive disorder, single episode, unspecified; D64.9 Anemia, unspecified; I25.2 Old myocardial infarction; Z95.5 Presence of coronary angioplasty implant and graft; Z85.828 Personal history of other malignant neoplasm of skin; Z87.891 Personal history of nicotine dependence; Z88.8 Allergy status to other drugs, medicaments and biological substances; Z88.1 Allergy status to other antibiotic agents; Z88.3 Allergy status to other anti-infective agents; Z82.49 Family history of ischemic heart disease and other diseases of the circulatory system; Z83.6 Family history of other diseases of the respiratory system
CPT/HCPCS: 36415; 36600; 70450; 71045; 80048; 80053; 81001; 82803; 83735; 83880; 84484; 85025; 85610; 93005; 93010; 99285; J0360; J1940; J2020; J3490

== ENCOUNTER 2019-10-08 09:08 | Outpatient (CLI) | payer MEDICARE, OTHER ==
[~2019-10-08 09:08] MED LIST: FERUMOXYTOL 510 MG in NORMAL SALINE 100 ML IV PRN; NORMAL SALINE 250 ML IV PRN
[2019-10-08 09:28] VITALS: BP 135/60
== END 2019-10-08 10:40 ==
LOC: II 09:08 → 5TH 09:12 → II 10:40
PROVIDERS: ATTEND Internal Medicine
DX: D50.8 Other iron deficiency anemias (principal); K90.9 Intestinal malabsorption, unspecified
CPT/HCPCS: 96365; Q0138; J7050

== ENCOUNTER 2019-10-15 08:40 | Outpatient (CLI) | payer MEDICARE, OTHER ==
[~2019-10-15 08:40] MED LIST changes: +FERUMOXYTOL (ESRD) 510 MG/NS 100 ML IV PRN; -FERUMOXYTOL 510 MG in NORMAL SALINE 100 ML IV PRN
[2019-10-15 09:24] VITALS: BP 151/98
== END 2019-10-15 09:36 | disposition home or self-care (01) ==
LOC: II 08:40 → 5TH 08:40 → II 09:36
PROVIDERS: ATTEND Internal Medicine
DX: D50.8 Other iron deficiency anemias (principal); K90.9 Intestinal malabsorption, unspecified
CPT/HCPCS: 96365; Q0139; J7050